=== PATIENT | female | born 1965 | race African-American/Black ===

== ENCOUNTER 2016-08-29 06:33 | Day surgery (SDC) | payer OTHER, BC ==
[~2016-08-29] VITALS: Ht 167.6 cm; Wt 76.2 kg
[~2016-08-29 06:33] MED LIST: ALBU1AER9 INH; ASPI81TA28 PO; ATV/1 PO; BRVIN INH; CALC667C4 PO; CHOL100027 PO; GABA-112 PO; IPRA1AER2 INH; LEVO150T9 PO; MAGNSUS5 PO; ONDA4TAB9 PO; OXGN; OXYC-106 PO; PANT1TAB48 PO; PRMT10 PO; SEVE800T7 PO
[2016-08-29 07:07] VITALS: BP 117/74; PULSE 80; TEMP 36.8; O2SAT 93; Ht 167.6 cm; Wt 76.2 kg
--- NOTE | 2016-08-29 08:03 | Procedure Note ---
Pre-Mod Sedation Assessment General Date of Moderate Sedation: August 29, 2016. Vital Signs: Vital Signs Past 12 Hours Date Time Temp Pulse Resp B/P Pulse Ox O2 Delivery O2 Flow Rate FiO2 08/29/16 07:07 36.8 80 18 117/74 93 Nasal Cannula 3.5 Pre-Sedation Airway Assessment Smoking Status: Current Every Day Smoker Mallampati Classification: Class I ASA Classification: Class II Notes The planned sedation has been discussed with the patient and consent obtained. I have identified the patient, determined the appropriateness of sedation and have assessed the patient immediately prior to the procedure. All medicine(s) and interventions are by my order.
--- NOTE | 2016-08-29 08:03 | History and Physical ---
History & Physical Date of Service August 29, 2016. History & Physical Chief Complaint: Functioning fistula History of Present Illness: The patient is a 46 year old female with long hx of DMII and ESRD, who has a left arm basilic vein fistula. She is now admitted for removal of her permcath. Allergies: No Known Allergies (Verified , 10/31/10) Past Surgical/Medical Hx: Hx Cardiac Surgery: No Hx Abdominal Surgery: Yes ( x2; tubal ligation, lap niranjan, fistula repair, hernia x4) Hx Cancer Surgery: No Hx Thoracic Surgery: No Hx Orthopedic: No Hx Urinary Tract Surgery: No HX Other Surgery: Yes (tonsilectomy) Past Medical History: Anxiety, Depression Family History: Noncontributory Social Hx: Hx Tobacco Use In Past Year?: Yes (1/2 ppd x 10 years) Hx Alcohol Use - Type & Amnt: No Hx Substance Use -Type & Amnt: No Review of Systems: Constitutional: + fatigue (chronic), No chills, No fever Skin: No change in color, No rash Eyes: No visual changes ENMT: No sore throat Respiratory: No cough, No MALLORY, No hemoptysis, No short of breath Cardiovascular: + edema (chronic), No chest pain, No chest tightness, No chest pressure, No palpitations, No syncope, No intermittent claudication Gastrointestinal: + abdominal pain (chronic d/t hernia), No diarrhea, No nausea , No vomiting Musculoskeletal: No joint pain (BL hips chronic) Neurologic: No dizziness, No headache, No numbness, No seizures, No tingling Physical Exam: Constitutional: General Apperance: well-nourished, well-developed, obese Level of Distress: NAD, chronically ill Psychiatric: Mental Status: active & alert Orientation: to time, to place, to person Memory: recent memory normal, remote memory normal Head: normocephalic, atraumatic Eyes: EOM: EOMI ENMT: normal ENT inspection Neck: supple, trachea midline, no masses, FROM Lungs: Respiratory effort: no dyspnea Auscultation: no wheezing, no rales/crackles, no rhonchi, Cardiovascular: Apical Impulse: not displaced Heart Auscultation: RRR, no murmurs, no rubs, no gallops Peripheral Pulses: Pulses: full and equal, in all extremities except if noted Bruits: none appreciated Carotid Pulse: normal on the left, normal on the right Brachial Pulses: normal on the left, normal on the right Radial Pulse: normal on the left, normal on the right Femoral Pulse: normal on the left, normal on the right Posterior Tibialis Pulse: normal on the left, normal on the right Dorsalis Pedis Pulse: normal on the left, normal on the right Abdomen: Bowel Sounds: normal Inspection & Palpation: soft, distended (secondary to body habitus) Musculoskeletal: normal strength (5/5 throughout), normal tone Extremities: Upper Right: no cyanosis, no edema, no varicosities Upper Left: no edema good thrill and bruit Lower Right: no cyanosis, no varicosities, no palpable cord, edema (1+) Lower Left: no cyanosis, no varicosities, no palpable cord, edema (1+) Neurologic: Cranial Nerves: grossly intact Sensation: grossly intact Assessment and Plan: Imp: ESRD, Functioning left basilic vein fistula Plan: Patient is admitted for a removal of her permcath. She understands the risks options and benefits and agrees to the procedure.
[2016-08-29] MEDS ORDERED: STERILE WATER IV SCH (08:15)
[2016-08-29] MEDS ORDERED: SOD CHLOR IV SCH (08:15)
[2016-08-29] MEDS ORDERED: LIDOCAINE HCL 1% 20 ML VIAL ONE (08:59)
[2016-08-29] MEDS ORDERED: MIDAZOLAM HCL 1 MG/ML 2ML VIAL ONE (09:00)
[2016-08-29] MEDS ORDERED: FENTANYL CITRATE INJ 50 MCG/1 ML 2 ML VIAL ONE (09:00)
[2016-08-29] MEDS ORDERED: MIDAZOLAM HCL 1 MG/ML 2ML VIAL IV ONE (09:19)
[2016-08-29] MEDS ORDERED: FENTANYL CITRATE INJ 50 MCG/1 ML 2 ML VIAL IV ONE (09:20)
[2016-08-29] MEDS ORDERED: FLUMAZENIL 0.1 MG/1 ML 10 ML VIAL IV ONE (09:20)
[2016-08-29] MEDS ORDERED: NALOXONE HCL 0.4 MG/1 ML VIAL/CARP ONE (09:20)
[2016-08-29] MEDS ORDERED: LIDOCAINE HCL 1% 20 ML VIAL INFIL ONE (09:23)
--- NOTE | 2016-08-29 09:26 | [facility] Post Operative Brief Note ---
Immediate Operative Summary Operative Date August 29, 2016. Pre-Operative Diagnosis Functioning Fistula Post-Operative Diagnosis Same Procedure(s) Performed Perm Cath Removal Moderate Sedation ([id number]) Surgeon Rojas Surgical First Assistant Surgeon(s) None Estimated Blood Loss 0 Findings catheter and cuff removed Specimens a; Perm Catheter Anesthesia Local with conscious sedaton Complication(s) None Disposition
--- NOTE | 2016-08-29 09:28 | Discharge Instructions ---
Discharge Instructions Date of Service August 29, 2016. Visit Reason for Visit: End Stage Renal Disease, Functioning Fistula Discharge Discharge Diagnosis / Problem: Functioning fistula Discharge Goals Goal(s): Therapeutic intervention Activity Recommendations Activity Limitations: resume your previous activity Shower/Bathe: tomorrow Anesthesia . Post Anesthesia Instructions: If you have had General Anesthesia or IV Sedation: * Do not drive today. * Resume driving when surgeon permits. * Do not make important decisions or sign legal documents today. * Call surgeon for: 1. Temperature elevations greater than 101 degrees F. 2. Uncontrollable pain. 3. Excessive bleeding. 4. Persistent nausea and vomiting. 5. Medication intolerance (nausea, vomiting or rash). * For nausea and vomiting use only clear liquids such as: tea, soda, bouillon until nausea subsides, then gradually increase diet as tolerated. * If you have any concerns or questions, call your surgeon's office. If physician is unavailable and it is an emergency, call 911 or go to the nearest emergency room. . Instructions / Follow-Up Instructions / Follow-Up Call [phone] with any questions or concerns. SPECIAL CARE INSTRUCTIONS: Medications: * Continue to take your medications as directed. If you have been given a prescription for Plavix, please fill it immediately and take as directed. Incision Care: * Your puncture site may have some bruising and minor swelling for about one week. * You will have a small dressing covering your puncture site. You may remove the dressing after 24 hours and shower. You may let the warm soapy water run over it, but be sure to dry the puncture site well and keep it dry. * DO NOT IMMERSE THE INCISION IN A TUB/POOL/etc. UNTIL HEALED. * Puncture sites should be kept covered with a band-aid until it begins to heal. Restrictions: * Depending on whether you leg or arm was punctured to access the arteries, you will be required to lay flat, hold your arm still, or both, for about 4 hours after the procedure to prevent bleeding. * Limit your activity for the first 48 hours. You may walk and go up and down steps. Avoid excessive bending or movement at the puncture site. Possible Complications: * Excessive Swelling - after blood flow is improved you may notice increased swelling in the lower legs. This is a normal response. This usually depends on the amount of blockages in the leg, how long they have been there prior to your procedure and how much blood flow was restored. Elevating your legs will help to improve this. Please notify our office ([phone] ) if the swelling does not go away after lying in bed overnight. * Infection/Drainage/Bleeding - Drainage or bleeding from the puncture site should be minimal. If you have excessive bleeding or drainage, call our office ([phone]) right away. * Pain - You may experience some mild pain or soreness at your puncture site. If your pain does not improve, please contact our office ([phone]). Call your doctor and seek emergent treatment if you develop: * Temperature above 101 degrees * Any fever or chills * Any redness or purulent drainage from the puncture site * Any new dusky/blue colored toes or feet with coolness or sharp or aching pain. SKIN IRRITATION: * You may experience some redness and/or swelling in the area where radiation was administered. If any skin irritation occurs, please contact your family physician. FOLLOW UP VISIT: Keep any scheduled doctor appointments. Diet Recommendations Recommended Home Diet: resume previous diet Procedures Procedures Performed: Perm Cath Removal Moderate Sedation ([id number]) Pending Studies Studies pending at discharge: no Medical Emergencies . Who to Call and When: Medical Emergencies: If at any time you feel your situation is an emergency, please call 911 immediately. . Non-Emergent Contact Non-Emergency issues call your: Surgeon . . "Provider Documentation" section prepared by Keith Xie. .
--- NOTE | 2016-08-29 09:33 | Procedure Note ---
Post-Moderate Sedation Plan General Date of Moderate Sedation August 29, 2016. Vital Signs: Vital Signs Past 12 Hours Date Time Temp Pulse Resp B/P Pulse Ox O2 Delivery O2 Flow Rate FiO2 08/29/16 09:27 86 16 114/73 90 Nasal Cannula 3 08/29/16 07:07 36.8 80 18 117/74 93 Nasal Cannula 3.5 Review - Discharge Plan Post Moderate Sedation Plan: On clinical assessment, the patient appears to have tolerated the conscious sedation without complications. Patient is recovering as anticipated. Patient will continue to be monitored by nursing and may be discharged when conscious sedation discharge criteria are met.
[2016-08-29 09:45] VITALS: BP 101/70; PULSE 87; TEMP 36.5; O2SAT 94
--- NOTE | 2016-08-29 09:53 | DIAGNOSTIC IMAGING REPORT ---
DATE OF PROCEDURE: 08/29/2016 DATE OF PROCEDURE: 08/29/2016. PREOPERATIVE DIAGNOSIS: Functioning fistula. POSTOPERATIVE DIAGNOSIS: Same. PROCEDURE: Removal of left internal jugular vein PermCath, moderate sedation 7 minutes. SURGEON: Dr. Xie. ANESTHETIC: Local with conscious sedation. PROCEDURE INDICATIONS: The patient is a 51-year-old female who has a functioning fistula in need of PermCath removal. She understood the risks, options and benefits and agreed to have this procedure. The patient was taken to the angio suite and placed in supine position. After the left side of the neck was prepped and draped in a sterile manner as well as the catheter and chest wall the local anesthetic was administered. Using sharp dissection, an incision was made around the base of the cuff cutting through the fibrous sheath that was present and skin edges around the outside of the puncture site. Once this was done, the catheter slid out easily. Pressure was applied. Adequate hemostasis was obtained. Sterile dressings were applied to the wound. The patient left the angio suite in good condition and tolerated the procedure well.
[2016-08-29 10:20] VITALS: BP 90/56; PULSE 85; TEMP 36.6; O2SAT 96
== END 2016-08-29 10:45 | disposition home or self-care (01) ==
LOC: C.ACU 06:33
PROVIDERS: ATTEND Surgery Vascular Surgery
DX: N18.6 End stage renal disease (principal); E11.9 Type 2 diabetes mellitus without complications; Z98.51 Tubal ligation status; Z90.49 Acquired absence of other specified parts of digestive tract; Z90.89 Acquired absence of other organs; F41.9 Anxiety disorder, unspecified; F32.9 Major depressive disorder, single episode, unspecified; F17.200 Nicotine dependence, unspecified, uncomplicated

== ENCOUNTER 2018-05-05 15:40 | Inpatient (IN) ==
[~2018-05-05 15:40] MED LIST changes: -ALBU1AER9 INH; -ASPI81TA28 PO; -ATV/1 PO; -BRVIN INH; -CALC667C4 PO; -CHOL100027 PO; -GABA-112 PO; -IPRA1AER2 INH; +KETAMINE HCL INJ 50 MG/ML 10 ML VIAL IV ONE; -LEVO150T9 PO; -MAGNSUS5 PO; -ONDA4TAB9 PO; -OXGN; -OXYC-106 PO; -PANT1TAB48 PO; -PRMT10 PO; +ROCURONIUM BROMIDE 10 MG/ML 5 ML VIAL IV ONE; -SEVE800T7 PO
[2018-05-05] MEDS ORDERED: NALOXONE HCL INJ 1 MG/ML 2ML SYR INTNAS ONE (16:32)
[2018-05-05] MEDS ORDERED: NALOXONE HCL 0.4 MG/1 ML VIAL/CARP ONE (16:37)
[2018-05-05] MEDS ORDERED: NALOXONE HCL 0.4 MG/1 ML VIAL/CARP IV PRN (16:43)
[2018-05-05 17:08] LABS: Basophils # (auto) 0.02 K/uL (0-0.2); Basophils % (auto) 0.3 %; Eosinophils # (auto) 0.01 K/uL (0-0.5); Eosinophils % (auto) 0.1 %; Hematocrit (blood only) 41.6 % (37-47); Hemoglobin 12.8 g/dL (12.0-16.0); Immature Granulocytes # (auto) 0.02 K/uL (0.00-0.02); Immature Granulocytes % (auto) 0.3 %; Lymphocytes # (auto) 0.42 K/uL (1.2-3.4); Lymphocytes % (auto) 5.9 %; Mean Corpuscular Hgb Conc 30.8 g/dL (32-36); Mean Platelet Volume 10.9 fL (7.4-10.4); Monocytes # (auto) 0.33 K/uL (0.11-0.59); Monocytes % (auto) 4.7 %; Neutrophils # (auto) 6.29 K/uL (1.4-6.5); Neutrophils % (auto) 88.7 %; Platelet Count 117 K/uL (130-400); RDW Coefficient of Variation 14.9 % (11.5-14.5); RDW Standard Deviation 57.3 fL (36.4-46.3); White Blood Count 7.09 K/uL (4.8-10.8)
[2018-05-05 17:21] LABS: HCO3 ABG 28 mmol/L (19-24); Oxygen Saturation ABG 88.6 % (90-95); PCO2 ABG 76 mmHg (35-46); PO2 ABG 64 mm/Hg (80-95)
[2018-05-05 17:22] LABS: pH ABG 7.18 (7.35-7.45)
--- NOTE | 2018-05-05 17:36 | XRay Report ---
XR chest 1V portable CLINICAL HISTORY: 52 years-old Female presenting with weakness. TECHNIQUE: Portable semiupright AP view of the chest was obtained. COMPARISON: 09/21/2017. FINDINGS: Right subclavian pacer with leads to the right atrium and right ventricular apex. Prosthetic mitral v alve. Median sternotomy wires and mediastinal surgical clips. Cardiac silhouette moderately enlarged. Significant enlargement of the main pulmonary artery. Pulmonary vascular prominence. Mildly low lung volumes with elevation of the right hemidiaphragm. Patchy groundglass opacity and/or added density o f the mid lungs and left upper lung. No large effusion or pneumothorax. IMPRESSION: 1. Cardiomegaly with volume overload/congestive change and suspected moderate pulmonary edema. Under lying infection is difficult to exclude. 2. Evidence of main pulmonary artery enlargement consistent with pulmonary hypertension. Electronically signed by: Bebo Mcmanus M.D. 05/05/2018 5:34 PM
[2018-05-05 17:38] LABS: Acetaminophen < 2 ug/ml (10-30); Alanine Aminotransferase 18 U/L (12-78); Albumin Globulin Ratio 0.7 (0.9-2); Albumin Level 3.6 gm/dl (3.4-5.0); Alkaline Phosphatase 273 U/L (45-117); Aspartate Aminotransferase 29 U/L (15-37); BUN Creatinine Ratio 4.7 (10-20); Bilirubin,Total 0.3 mg/dl (0.2-1); Blood Urea Nitrogen 38 mg/dl (7-18); Calcium 8.1 mg/dl (8.5-10.1); Carbon Dioxide 30 mmol/L (21-32); Chloride 90 mmol/L (98-107); Est GFR (African American) 5.9; Est GFR (Non-African American) 5.1; Globulin 5.1 gm/dl (2.5-4.0); Glucose 104 mg/dl (70-99); Potassium 4.8 mmol/L (3.5-5.1); Sodium 131 mmol/L (136-145); Total Protein 8.7 gm/dl (6.4-8.2); Troponin I < 0.015 ng/ml (0-0.045)
[2018-05-05] MEDS ORDERED: RAPID SEQUENCE INDUCTION BAG ONE (18:45)
[2018-05-05 19:50] LABS: iSTAT Arterial Blood Gas HCO3 29 meg/L (19-24); iSTAT Carbon Dioxide 32 mEq/l (24-31)
[2018-05-05] MEDS ORDERED: MIDAZOLAM HCL 125 MG/250 ML BAG IV STA ×2 (19:58→22:31)
--- NOTE | 2018-05-05 20:20 | XRay Report ---
XR chest 1V portable CLINICAL HISTORY: 52 years-old Female presenting with post intubation. TECHNIQUE: Portable upright AP view of the chest was obtained. COMPARISON: 05/05/2018 at 5:06 PM. FINDINGS: Endotracheal tube terminates in the lower thoracic trachea proximally 1.5 cm from the rigoberto. Right s ubclavian pacer with leads to the right atrium and right ventricular apex. Prosthetic mitral valve. P rosthetic tricuspid valve also suggested. Median sternotomy wires and mediastinal surgical clips. Cardiac silhouette mildly enlarged. Prominence of the main pulmonary artery. Postsurgical changes the right hemithorax suspected with persistent elevation of the right hemidiaphragm. Low lung volumes si milar to prior. Significant interval worsening of perihilar and central predominant hazy opacities, w hich have become more dense significantly on the left. Small right pleural effusion new from prior. N o pneumothorax. Calcification projecting over the proximal left humerus may be vascular in etiology. Cholecystectomy clips noted. IMPRESSION: 1. Appropriately positioned endotracheal tube. 2. Significant interval worsening in central predominant infiltrates most concerning for moderate to severe pulmonary edema. 3. New right pleural effusion. Electronically signed by: Bebo Mcmanus M.D. 05/05/2018 8:18 PM
--- NOTE | 2018-05-05 21:01 | Critical Care Consultation ---
Date of Consultation May 05, 2018 Assessment & Plan (1) Admitted to intensive care unit: Reason Critically Ill: 52-year-old female with multiple comorbidities presenting with acute on chronic hypoxic respiratory failure with hypercapnia found to have aspiration pneumonia. Patient presenting with altered mental status requiring endotracheal intubation for all the above. NEURO - * CAM ICU: POSITIVE * SEDATION: Initially started on Versed gtt in ED. * Patient appears sensitive to versed in regards to blood pressures. Will make Versed PRN. * Will add Fentanyl PRN. * Altered Mental Status: * Multifactorial in the setting of respiratory failure w/ hypercapnia, narcotic use, aspiration pneumonia. * CT Head unremarkable. * Will see how patient improves with correction of hypercapnia. CARDIAC/VASCULAR - * Hypotension: * Appears to be relatively hypotensive at baseline. * Previously on Midodrine 3 times daily. Unable to find records and not currently on EMR. * Will add pressors if needed - will titrate to patient responsiveness as organ perfusion will be hard to evaluate otherwise 2/2 CKD, Liver Dz. * Vavular heart disease s/p Mitral/Tricuspid repair. * Echo on 09/20/2017 shows EF of 50-55%, Grade II diastolic failure. * EKG: Paced 97bpm. unable to appreciate ST/T-wave changes. QTc 556 ms. * Monitor on telemetry. RESPIRATORY - * Acute on chronic hypoxic respiratory failure with hypercapnia in the setting of aspiration pneumonia: * Currently intubated and sedated. * Will check serial ABGs. * Will add CT Chest w/o. * Zosyn/Vanc. * Pulmonary Edema noted on CXR/CT Chest. Seen previously. Likely 2/2 volume overload in the setting of CKD. * Will add Nebs. * Will add steroids. GI/NUTRITION - * Chronic ventral hernia. * In the setting of altered mental status and unknown underlying other pathologies, will add CT for evaluation of possible mesenteric catastrophe. * Will check lactate for possible ischemia. * Prophylaxis: Protonix. RENAL/LYTES - * End-stage renal disease on HD M/W/F: * Will consult Nephro for HD management. * Remarkably, lytes remain well balanced. - * Patient anuric. ENDO - * No h/o DM. * BSGs per unit protocol. ISS --> gtt per unit policy. * Hypothyroidism w/ Significant TSH elevation: * In the setting of AMS, consider myxedema. * Will add Free T3/T4 and cortisol studies. * Will treat w/ Levothyroxine and Solu-cortef. HEME - * Stable H&H ID - * Aspiration Pneumoinia: * Will treat w/ Vanc/Zosyn pending nasal MRSA cultures. * BAL if bronched. * Check Lactate. * Add ProCal. * Blood Cultures pending. LINES/IV ACCESS - * PIVs x3 * RIGHT Radial Arterial Line DVT PROPHYLAXIS - * Heparin * SCDs I have personally spent 80 minutes of critical care time in the direct management of this patient. This is a life/limb threatening event. This includes time spent evaluating patient, direct bedside care, chart review, placing orders, interpretation of diagnostic studies, discussion with consultants, patient, and family members, as well as other required patient management activities. This time is exclusive of all separately billable procedures, and teaching time and separate from and in addition to any other critical care service time. Thank you for allowing us to participate in the care of this patient. Please refer to my attending physician's documentation for any further recommendations. (2) Acute respiratory failure with hypoxia and hypercarbia: (3) Altered mental status: (4) End-stage renal disease (ESRD): (5) Respiratory failure: (6) Hypothyroidism: (7) Polycystic kidney disease, adult type: Supervising Physician Co-Signing Physician Notes I have personally evaluated and examined this patient. I agree with assessment and plan of Elvie Santiago PA-C. Please refer to today's documentation from Dr. Gonzalez regarding my updates or additions History of Present Illness History of Present Illness Patient is an unfortunate 52-year-old female with a significant past medical history of end-stage renal disease on hemodialysis Mondays/Wednesdays/Fridays, COPD, RITU, significant history of valvular heart disease, CHF, history of endocarditis, and history of substance abuse. Patient presented to the emergency department with apparent increasing altered mental status. She presented via EMS. On arrival, the patient was felt to be obtunded. She was placed on BiPAP as her initial blood gas showed a respiratory acidosis. She was also provided naloxone with minimal relief of symptoms. On reassessment after initiation of BiPAP, the patient had worsening ABG prompting endotracheal intubation. Chest x-ray demonstrated pulmonary vascular congestion without overt infiltrative change. No significant electrolyte abnormalities appreciated. She was found to have a creatinine of 8.13. On assessment, she typically runs with a creatinine of approximately 5. Her last hemodialysis treatment was on Sunday. Of note, the patient's TSH was found to be 155. She typically does run with a higher TSH, however this is higher than most recent admission. On my assessment in the ER, the patient is sedated and unresponsive. No family is present at bedside. History of present illness is limited secondary to patient's current status. Allergies Allergy/AdvReac Type Severity Reaction Status Date / Time No Known Allergies Allergy Verified 02/06/17 12:26 Home Medications Home Medications Medication Instructions Recorded Confirmed Type albuterol sulfate [Ventolin HFA] 1 puff INHALATION UD PRN 05/05/18 05/05/18 History aspirin [Aspir-81] 81 mg PO DAILY 05/05/18 05/05/18 History calcium acetate 1,334 mg PO TID 05/05/18 05/05/18 History cholecalciferol (vitamin D3) 1,000 unit PO DAILY 05/05/18 05/05/18 History [Vitamin D3] gabapentin 300 mg PO HS 05/05/18 05/05/18 History levothyroxine 175 mcg PO DAILY 05/05/18 05/05/18 History lorazepam 1 mg PO Q12 PRN 05/05/18 05/05/18 History oxycodone-acetaminophen 1 tab PO Q12 PRN 05/05/18 05/05/18 History Patient History Medical History History of valvular heart disease (Chronic) "s/p mitral and tricuspid valve repair 12/2012" Chronic systolic heart failure (Chronic) H/O echocardiogram (Chronic) "11/2013: Moderate systolic dysfunction with 40% ejection fraction, status post mitral and tricuspid repair, mild tricuspid regurgitation." Chronic kidney disease stage 5 (Chronic Unknown) "hemodialysis under direction of Dr. Hugo " On 10/31/11 15:52 Rasta Boyer wrote "hemodialysis under direction of Dr. Hugo " On 10/31/11 15:52 Rasta Boyer wrote "hemodialysis under direction of Dr. Hugo " On 10/31/11 15:52 Rasta Boyer wrote "hemodialysis under direction of Dr. Hugo " On 10/31/11 15:52 Rasta Boyer wrote "hemodialysis under direction of Dr. Hugo " On 10/31/11 15:52 Rasat Boyer wrote "hemodialysis under direction of Dr. Hugo " On 10/31/11 15:52 Rasta Boyer wrote "hemodialysis under direction of Dr. Hugo " On 10/31/11 15:52 Rasta Boyer wrote "hemodialysis under direction of Dr. Hugo " Polycystic kidney disease, adult type (Chronic Unknown) Dyslipidemia (Chronic) Sleep apnea (Chronic Unknown) COPD (chronic obstructive pulmonary disease) (Chronic) History of drug abuse (Chronic) Depression (Chronic) History of endocarditis (Chronic) Chronic anxiety (Chronic Unknown) Anemia (Chronic) Neuropathy (Chronic) Surgical History S/P mitral valve repair (Chronic) "12/2012" S/P tricuspid valve repair (Chronic) "12/2012" S/P placement of cardiac pacemaker (Chronic) "12/2012" S/P right and left heart catheterization (Chronic) "2012- minor luminal regularities of the coronary arteries, severe pulmonary hypertension, with markedly elevated pulmonary capillary wedge pressure" S/P hernia repair (Chronic) S/P tonsillectomy (Chronic) Social History Smoking Status: Unknown if ever smoked Beliefs That Will Affect Care: None Communication Ability: Impaired Review of Systems Review of systems limited secondary to patient's current state of intubation with sedation. Physical Exam 2 Vital Signs (Past 24 Hours): Last Vital Signs Temp 36.9 C 05/05/18 20:28 Pulse 90 05/05/18 20:28 Resp 26 H 05/05/18 20:28 BP 79/52 L 05/05/18 20:28 Pulse Ox 97 05/05/18 20:28 Physical Exam: VITAL SIGNS - Vital signs and nursing notes were reviewed. GENERAL - 52-year-old female appearing older than her stated age who is in no acute distress. Intubated and sedated. SKIN - Dry skin throughout. HEAD - NC/AT. EYES - PERRL with EOMI bilaterally. Sclera anicteric. Palpebral conjunctiva pink and moist with no injection noted. EARS - No deformities of external structures noted on gross examination bilaterally. NOSE - Midline and without cyanosis. No epistaxis or purulent drainage noted. MOUTH/OROPHARYNX - ET Tube in place. Without perioral cyanosis. NECK - Neck with FROM. Supple to palpation. LUNGS - Chest wall symmetric without accessory muscle use, intercostals retractions, or central cyanosis. Normal vesicular breath sounds CTA B/L. Diffuse inspiratory wheezes appreciated throughout. No rales or rhonchi appreciated. CARDIAC - RRR with S1/S2. No murmur, rubs, or gallops appreciated. ABDOMEN - Abdominal contour obese with large non-reducible ventral hernia appreciated. BS normoactive all four quadrants. No tenderness or ascites noted. EXTREMITIES - No clubbing or peripheral cyanosis. No pretibial edema present. +2 /5 radial and dorsalis pedis pulses palpated throughout. NEUROLOGIC - Unable to assess secondary to current state of sedation. No focal neurological deficits appreciated however. Results & Data Diagnostic Findings Radiology imaging and reports were reviewed by myself. Radiologist's interpretations are as follows: CT head/brain wo con CLINICAL HISTORY: 52 years-old Female presenting with ams. TECHNIQUE: Multidetector CT imaging of the head was performed without the use of intravenous contrast. IV contrast: None. A dose lowering technique was used consistent with the principles of ALARA (as low as reasonably achievable). COMPARISON: None. CT DOSE (mGy.cm): The estimated cumulative dose is 2475.26. FINDINGS: [employer] Representative topogram: Endotracheal tube terminates in the lower thoracic trachea. Prosthetic mitral and tricuspid valves with median sternotomy wires. Right subclavian pacer with leads to the right atrium and right ventricular apex. Cholecystectomy clips. Coil carson in the midabdomen indicated of prior ventral hernia repair. Surgical clips project over the left common femoral region. Calcification projects over the left upper arm. Ventricles and sulci normal in size. No hemorrhage. Brain parenchyma normal in appearance with preserved barfield-white differentiation. No acute territorial infarct. No mass effect or midline shift. No extra-axial fluid collection. Extensive fluid in the nasopharynx as a result of the endotracheal tube. Calvarium intact. IMPRESSION: 1. No acute intracranial abnormality. CT chest wo con CLINICAL HISTORY: 52 years-old Female presenting with resp failure. TECHNIQUE: Multidetector CT imaging of the chest was performed without the use of intravenous contrast. IV contrast: None. A dose lowering technique was used consistent with the principles of ALARA (as low as reasonably achievable). COMPARISON: Chest x-ray performed earlier today and chest CT from 04/01/2013. CT DOSE (mGy.cm): The estimated cumulative dose is 2475.26. FINDINGS: [employer] Representative topogram: Endotracheal tube terminates in the lower thoracic trachea. Prosthetic mitral and tricuspid valves with median sternotomy wires. Right subclavian pacer with leads to the right atrium and right ventricular apex. Cholecystectomy clips. Coil carson in the midabdomen indicated of prior ventral hernia repair. Surgical clips project over the left common femoral region. Calcification projects over the left upper arm. On soft tissue windows, normal thyroid and thoracic inlet. No axillary, supraclavicular, or mediastinal lymphadenopathy. Evaluation of the [place] limited without intravenous contrast. Atherosclerosis of the aorta. Main pulmonary artery enlarged measuring 2.6 cm in diameter. Prosthetic tricuspid and mitral valves. Coronary artery calcification. Pacer leads to the right atrial appendage and right ventricular apex. Additional epicardial lead noted. Median sternotomy wires. Mild multichamber enlargement of the heart. Trace pleural fluid may be present if any. No pericardial effusion. Numerous well-defined low- density hepatic lesions again evident though several lesions are now accompanied by mural calcification. Nodular contour of the liver suggests cirrhosis. Biliary ductal dilatation may indicate a reservoir effect in the post cholecystectomy state. Splenomegaly. Nasogastric tube extends at least to the gastric lumen. On lung windows, no pneumothorax. Mild centrilobular emphysema. Extensive groundglass opacity with an upper lobe predominance. Mosaic attenuation in the right middle lobe. Extensive dependent consolidation in the bilateral lower lobes with more patchy dependent consolidation in the upper lobes. The endotracheal tube terminates in the lower thoracic trachea. Airways are diffusely narrowed including the right and left mainstem bronchi. Layering debris is suggested in the mainstem bronchi. On bone windows, peripherally calcified arteriovenous fistula in the left upper arm noted. Sclerosis of the vertebral bodies suggestive of renal osteodystrophy. IMPRESSION: 1. Extensive pulmonary infiltrates with a dependent distribution lobes highly concerning for extensive aspiration. Lower lobe consolidation is likely enlarged part extensive atelectasis. 2. Diffuse groundglass opacity in the upper lobes may represent cardiogenic or noncardiogenic pulmonary edema or pulmonary hemorrhage. 3. Extensive debris in the mainstem bronchi with overall narrowed airways. Endotracheal tube in the lower trachea. 4. Interval evolution of polycystic liver disease with development of peripheral calcification of numerous cysts. This is of uncertain significance. Correlate with the patient's history. The liver morphology now suggest cirrhosis. 5. Splenomegaly in the setting of the liver suggests portal hypertension. 6. Additional findings as above. CT abd pelvis wo con CLINICAL HISTORY: 52 years-old Female presenting with ams - abd hernia. TECHNIQUE: Multidetector CT of the abdomen and pelvis was performed without the use of intravenous contrast. IV contrast: None. A dose lowering technique was used consistent with the principles of ALARA (as low as reasonably achievable). COMPARISON: 11/17/2015. CT DOSE (mGy.cm): The estimated cumulative dose is 2475.26 mGy.cm. FINDINGS: [employer] Representative topogram: Endotracheal tube terminates in the lower thoracic trachea. Prosthetic mitral and tricuspid valves with median sternotomy wires. Right subclavian pacer with leads to the right atrium and right ventricular apex. Cholecystectomy clips. Coil carson in the midabdomen indicated of prior ventral hernia repair. Surgical clips project over the left common femoral region. Calcification projects over the left upper arm. Lung bases: Extensive dependent consolidation with diffuse groundglass and patchy upper lobe dependent infiltrates. Postsurgical changes of tricuspid and mitral valve replacements. Pacer leads to the right atrium and right ventricular apex. Multichamber enlargement of the heart. No pericardial or pleural effusion. Liver: Nodular morphology. Innumerable cysts, which also demonstrate peripheral calcification in many lesions. Biliary: Mild biliary ductal prominence likely a reservoir effect in the post cholecystectomy state. Gallbladder surgically absent. Pancreas: Normal noncontrast appearance. Pancreatic ductal dilatation grossly unchanged. Spleen: Enlarged, measuring 13.5 cm in maximal sagittal dimension. Adrenal glands: Normal noncontrast appearance. Kidneys and ureters: Enlarged polycystic kidneys with extensive calcification. Several cysts may demonstrate internal proteinaceous or hemorrhagic material given the slightly higher density. Limited evaluation without intravenous contrast of these lesions. No hydronephrosis. Ureters nondistended. Bladder: Incompletely evaluated secondary to underdistention. Pelvic organs: Normal noncontrast appearance. Bowel: Few diverticula in the proximal sigmoid colon. The mid transverse colon is contained within the ventral hernia in the epigastrium as on prior exam. No evidence of obstruction as a result. The appendix is normal. Medialization of the cecum. No bowel obstruction. Nasogastric tube terminates in the gastric antrum. Mild wall thickening of the duodenal bulb and descending duodenum suggested. Peritoneal cavity: Trace fluid in the abdomen. No free intraperitoneal gas. Lymph nodes: No gross lymphadenopathy allowing for noncontrast technique. Postsurgical changes in the left inguinal region. Vasculature: Atherosclerosis of the normal caliber abdominal aorta. Abdominal wall: Prosthetic mesh from prior ventral hernia repair evident in the periumbilical region. The epigastric ventral hernia sac containing transverse colon and fluid is immediately superior to this. Musculoskeletal: Sclerosis suggests renal osteodystrophy. Calcification in the sacroiliac joints with widened sacral iliac joints suggests amyloid-related arthropathy. Multiple old rib fractures evident. IMPRESSION: 1. Extensive dependent consolidation likely aspiration and atelectasis. Please see separately dictated CT chest. 2. Polycystic kidney and polycystic liver disease. 3. Nodular morphology of the liver with mild splenomegaly raises concern for cirrhosis/fibrosis and portal hypertension. 4. Epigastric hernia containing transverse colon. No bowel obstruction or evidence of strangulation. Appearance unchanged from prior. 5. Duodenal bulb and descending duodenal wall thickening suggested. This may relate to possible portal hypertension (portal enteropathy) versus duodenitis/ enteritis. 6. Renal osteodystrophy.
--- NOTE | 2018-05-05 21:09 | History & Physical Report ---
Date of Service May 05, 2018 Assessment & Plan (1) Admitted to intensive care unit: Admitted to ICU with acute respiratory failure with hypoxia and hypercapnea, secondary to acute on chronic systolic heart failure. Question contribution of thyroid myxedema. Continue current ventilator settings. Repeat ABG in 30 minutes and adjust vent accordingly. Patient does not produce urine, so therefore will not be given diuretics, but does not appear to acutely need dialysis at this time. Remainder of orders per ICU team, under the direction of Dr. Chavez. Present on Admission?: Yes (2) Acute respiratory failure with hypoxia and hypercarbia: See above Present on Admission?: Yes (3) Acute on chronic systolic heart failure: See above Present on Admission?: Yes (4) Hypothyroidism: TSH upon admission is 155.0, likely indicating patient is not taking her thyroid medication as directed. Question a complement of thyroid myxedema. We will convert her oral levothyroxine to IV levothyroxine. Present on Admission?: Yes (5) End-stage renal disease (ESRD): Consult her radiology receptionist Dr. Hugo Present on Admission?: Yes (6) Altered mental status: Upon arrival patient had a severe respiratory acidosis, with pH initially 7.18, that worsened to 7.06 prior to intubation. Likely etiology is acute on chronic systolic heart failure. However, patient has been cultured and results will be followed. Present on Admission?: Yes (7) Chronic kidney disease stage 5: As noted, hemodialysis patient. Present on Admission?: Yes History of Present Illness Chief Complaint: HPI significantly limited at the time of my assessment as the patient is intubated. Record review shows that the patient initially presented due to worsening weakness and confusion. Primary Care Provider: Blayne Hugo MD The patient is a 52-year-old female with a past medical history including valvular heart disease, systolic heart failure, COPD, drug abuse, endocarditis, bacteremia, hypertension, hyperlipidemia, ESRD on dialysis, neuropathy, tricuspid valve repair, mitral valve repair, all complicated by medical noncompliance. She arrived to the emergency department via ALS from home, where she is usually on 3.5 L of oxygen via nasal cannula. Allergies Allergy/AdvReac Type Severity Reaction Status Date / Time No Known Allergies Allergy Verified 02/06/17 12:26 Home Medications Home Medications Medication Instructions Recorded Confirmed Type albuterol sulfate [Ventolin HFA] 1 puff INHALATION UD PRN 05/05/18 05/05/18 History aspirin [Aspir-81] 81 mg PO DAILY 05/05/18 05/05/18 History calcium acetate 1,334 mg PO TID 05/05/18 05/05/18 History cholecalciferol (vitamin D3) 1,000 unit PO DAILY 05/05/18 05/05/18 History [Vitamin D3] gabapentin 300 mg PO HS 05/05/18 05/05/18 History levothyroxine 175 mcg PO DAILY 05/05/18 05/05/18 History lorazepam 1 mg PO Q12 PRN 05/05/18 05/05/18 History oxycodone-acetaminophen 1 tab PO Q12 PRN 05/05/18 05/05/18 History Past Med/Surg History Medical History History of valvular heart disease (Chronic) "s/p mitral and tricuspid valve repair 12/2012" Chronic systolic heart failure (Chronic) H/O echocardiogram (Chronic) "11/2013: Moderate systolic dysfunction with 40% ejection fraction, status post mitral and tricuspid repair, mild tricuspid regurgitation." Chronic kidney disease stage 5 (Chronic Unknown) "hemodialysis under direction of Dr. Hugo " On 10/31/11 15:52 aRsta Boyer wrote "hemodialysis under direction of Dr. Hugo " On 10/31/11 15:52 Rasta Boyer wrote "hemodialysis under direction of Dr. Hugo " On 10/31/11 15:52 Rasta Boyer wrote "hemodialysis under direction of Dr. Hugo " On 10/31/11 15:52 Rasta Boyer wrote "hemodialysis under direction of Dr. Hugo " On 10/31/11 15:52 Rasta Boyer wrote "hemodialysis under direction of Dr. Hugo " On 10/31/11 15:52 Rasta Boyer wrote "hemodialysis under direction of Dr. Hugo " On 10/31/11 15:52 Rasta Boyer wrote "hemodialysis under direction of Dr. Hugo " Polycystic kidney disease, adult type (Chronic Unknown) Dyslipidemia (Chronic) Sleep apnea (Chronic Unknown) COPD (chronic obstructive pulmonary disease) (Chronic) History of drug abuse (Chronic) Depression (Chronic) History of endocarditis (Chronic) Chronic anxiety (Chronic Unknown) Anemia (Chronic) Neuropathy (Chronic) Surgical History S/P mitral valve repair (Chronic) "12/2012" S/P tricuspid valve repair (Chronic) "12/2012" S/P placement of cardiac pacemaker (Chronic) "12/2012" S/P right and left heart catheterization (Chronic) "2012- minor luminal regularities of the coronary arteries, severe pulmonary hypertension, with markedly elevated pulmonary capillary wedge pressure" S/P hernia repair (Chronic) S/P tonsillectomy (Chronic) Social History Smoking Status: Unknown if ever smoked Beliefs That Will Affect Care: None Preferred Language: Yakut Communication Ability: Impaired Communication Ability Comment: Intubated and sedated Steel Erector Required: No Review of Systems Limited due to patient's intubation status, and is as recorded in the ED notes Physical Exam 2 Vital Signs (Past 24 Hours): Last Vital Signs Temp 36.9 C 05/05/18 20:28 Pulse 90 05/05/18 20:28 Resp 26 H 05/05/18 20:28 BP 79/52 L 05/05/18 20:28 Pulse Ox 97 05/05/18 20:28 Physical Exam: The patient is sedated and intubated. Exam limited due to intubation status. HEENT--pupils pinpoint but reactive. Mucous membranes and oropharynx dry. Neck--No JVD. No bruits. Thyroid normal, trachea midline, no adenopathy. Heart--normal S1 and S2. No murmurs, rubs or gallops. Lungs--coarse breath sounds with wheezes bilaterally. Abdomen--normal bowel sounds and soft. Nondistended. Obese Extremities--no cyanosis or clubbing. Bilateral pretibial 1-2+ pitting edema. There are good distal pulses b/l. Dermatologic--normal skin turgor, normal color, no abnormal lymph nodes, no rash. Neurologic--limited exam Rheumatologic--limited exam Psychiatric--sedated Results & Data Laboratory Results Laboratory Results WBC 7.09 K/uL (4.8-10.8) 05/05/18 16:40 RBC 4.00 M/uL (4.2-5.4) L 05/05/18 16:40 Hgb 12.8 g/dL (12.0-16.0) 05/05/18 16:40 POC Hgb 12.2 g/dl (12.0-16.0) 05/05/18 21:37 Hct 41.6 % (37-47) 05/05/18 16:40 POC Hct 36 % (37-47) L 05/05/18 21:37 MCV 104.0 fL (80-100) H 05/05/18 16:40 MCH 32.0 pg (25-34) 05/05/18 16:40 MCHC 30.8 g/dL (32-36) L 05/05/18 16:40 RDW Std Deviation 57.3 fL (36.4-46.3) H 05/05/18 16:40 RDW Coeff of Ya 14.9 % (11.5-14.5) H 05/05/18 16:40 Plt Count 117 K/uL (130-400) L 05/05/18 16:40 MPV 10.9 fL (7.4-10.4) H 05/05/18 16:40 Immature Gran % (Auto) 0.3 % 05/05/18 16:40 Neut % (Auto) 88.7 % 05/05/18 16:40 Lymph % (Auto) 5.9 % 05/05/18 16:40 [place] % (Auto) 4.7 % 05/05/18 16:40 Eos % (Auto) 0.1 % 05/05/18 16:40 Baso % (Auto) 0.3 % 05/05/18 16:40 Immature Gran # (Auto) 0.02 K/uL (0.00-0.02) 05/05/18 16:40 Neut # (Auto) 6.29 K/uL (1.4-6.5) 05/05/18 16:40 Lymph # (Auto) 0.42 K/uL (1.2-3.4) L 05/05/18 16:40 [place] # (Auto) 0.33 K/uL (0.11-0.59) 05/05/18 16:40 Eos # (Auto) 0.01 K/uL (0-0.5) 05/05/18 16:40 Baso # (Auto) 0.02 K/uL (0-0.2) 05/05/18 16:40 Sample Site Art Line 05/06/18 00:37 POC pH 7.24 (7.35-7.45) L 05/06/18 00:37 POC pCO2 57 mmHg (35-46) H 05/06/18 00:37 POC pO2 60 mmHg (80-95) L 05/06/18 00:37 POC HCO3 24 tonio/L (19-24) 05/06/18 00:37 POC Total CO2 26 mEq/l (24-31) 05/06/18 00:37 POC Base Excess -3.0 tonio/L (-9-1.8) 05/06/18 00:37 ABG pH 7.18 (7.35-7.45) L* 05/05/18 17:06 ABG pCO2 76 mmHg (35-46) H 05/05/18 17:06 ABG pO2 64 mm/Hg (80-95) L 05/05/18 17:06 ABG HCO3 28 mmol/L (19-24) H 05/05/18 17:06 POC ABG O2 Sat 84.0 % (90-95) L 05/06/18 00:37 ABG O2 Saturation 88.6 % (90-95) L 05/05/18 17:06 ABG Base Excess -2.2 mEq/L (-9-1.8) 05/05/18 17:06 Jeb Test NA 05/06/18 00:37 Barometric Pressure 730.1 mm/Hg 05/05/18 17:06 Oxygen Given 7L 05/05/18 17:06 O2 Delivery Device Ventilator 05/06/18 00:37 POC O2 Rate 26 05/06/18 00:37 Minute Ventilation 10.2 05/06/18 00:37 POC FiO2 40 % 05/06/18 00:37 Tidal Volume 450 05/06/18 00:37 PEEP 5 05/06/18 00:37 POC Sodium 134 mEq/L (135-144) L 05/05/18 21:37 Sodium 131 mmol/L (136-145) L 05/05/18 16:40 POC Potassium 4.6 mEq/L (3.3-5.0) 05/05/18 21:37 Potassium 4.8 mmol/L (3.5-5.1) 05/05/18 16:40 POC Chloride 94 mEq/L (101-112) L 05/05/18 16:43 Chloride 90 mmol/L (98-107) L 05/05/18 16:40 Carbon Dioxide 30 mmol/L (21-32) 05/05/18 16:40 POC Total CO2 33 mEq/l (24-31) H 05/05/18 16:43 Anion Gap 10.0 (3-11) 05/05/18 16:40 POC Anion Gap 13.0 mmol/L (16-25) L 05/05/18 16:43 POC BUN 43 mg/dl (7-18) H 05/05/18 16:43 BUN 38 mg/dl (7-18) H 05/05/18 16:40 Creatinine 8.13 mg/dl (0.6-1.2) H* 05/05/18 16:40 POC Creatinine 6.9 mg/dl (0.6-1.3) H* 05/05/18 16:43 Est Cr Clr Drug Dosing Not Reportable 05/05/18 16:40 Est GFR ( Amer) 5.9 05/05/18 16:40 Est GFR (Non-Af Amer) 5.1 05/05/18 16:40 BUN/Creatinine Ratio 4.7 (10-20) L 05/05/18 16:40 Glucose 104 mg/dl (70-99) H 05/05/18 16:40 POC Glucose 109 (70-99) H 05/05/18 16:46 POC Glucose (other) 102 mg/dl (70-99) H 05/05/18 16:43 Lactate 0.6 mmol/L (0.4-2.0) 05/05/18 23:09 Calcium 8.1 mg/dl (8.5-10.1) L 05/05/18 16:40 POC Ioniz Calcium Chivo 1.00 mmol/l (1.12-1.32) L 05/05/18 16:43 Total Bilirubin 0.3 mg/dl (0.2-1) 05/05/18 16:40 AST 29 U/L (15-37) 05/05/18 16:40 ALT 18 U/L (12-78) 05/05/18 16:40 Alkaline Phosphatase 273 U/L (45-117) H 05/05/18 16:40 Troponin I < 0.015 ng/ml (0-0.045) 05/05/18 16:40 Total Protein 8.7 gm/dl (6.4-8.2) H 05/05/18 16:40 Albumin 3.6 gm/dl (3.4-5.0) 05/05/18 16:40 Globulin 5.1 gm/dl (2.5-4.0) H 05/05/18 16:40 Albumin/Globulin Ratio 0.7 (0.9-2) L 05/05/18 16:40 TSH 155.000 uIu/ml (0.300-4.500) H 05/05/18 16:40 Free T4 0.53 ng/dl (0.8-1.6) L 05/05/18 16:40 Free T3 1.03 pg/ml (2.3-4.2) L 05/05/18 17:27 Random Cortisol 29.45 mcg/dl 05/05/18 17:27 Nasal Screen MRSA (PCR) Negative (Negative) 05/05/18 22:14 Salicylates 2.0 mg/dl (2.8-20) L 05/05/18 16:40 Acetaminophen < 2 ug/ml (10-30) L 05/05/18 16:40 Ethyl Alcohol mg/dL < 3.0 mg/dl (0-3) 05/05/18 17:06 Diagnostic Findings [facility], [place] [phone] XRay Report Patient: GALO BIANCHIdmsara Date: 05/05/18 MR#: [id number]: [address] [employer] Acct ID:[id number]: Date: 1965[facility] Zip: [place] [address] Age: 52Location: ED Sex: F Room/Bed: Att Phy: Diagnosis: SYNCOPE Geetha Phy: Bunny Hugo MDService Date: 05/05/18 Fam Phy: Interpreting Phy: Bebo Mcmanus MD Admit Phy: Ordering Phy: Dev Mckeon M.D. cc: ~ XR chest 1V portable CLINICAL HISTORY: 52 years-old Female presenting with weakness. TECHNIQUE: Portable semiupright AP view of the chest was obtained. COMPARISON: 09/21/2017. FINDINGS: Right subclavian pacer with leads to the right atrium and right ventricular apex. Prosthetic mitral valve. Median sternotomy wires and mediastinal surgical clips. Cardiac silhouette moderately enlarged. Significant enlargement of the main pulmonary artery. Pulmonary vascular prominence. Mildly low lung volumes with elevation of the right hemidiaphragm. Patchy groundglass opacity and/or added density of the mid lungs and left upper lung. No large effusion or pneumothorax. IMPRESSION: 1. Cardiomegaly with volume overload/congestive change and suspected moderate pulmonary edema. Underlying infection is difficult to exclude. 2. Evidence of main pulmonary artery enlargement consistent with pulmonary hypertension. Electronically signed by: Bebo Mcmanus M.D. 05/05/2018 5:34 PM Dictated: 05/05/18 1733 Transcribed: 05/05/18 1733 [place], [place] [phone] XRay Report Patient: Bobby BIANCHI Date: 05/05/18 MR#: [id number]: [address] [employer] Acct ID:[id number]: Date: 1965[facility] Zip: [place] [address] Age: 52Location: ED Sex: F Room/Bed: Att Phy: Diagnosis: SYNCOPE Geetha Phy: Bunny Hugo MDService Date: 05/05/18 Fam Phy: Interpreting Phy: Bebo Mcmanus MD Admit Phy: Ordering Phy: Dev Mckeon M.D. cc: ~ XR chest 1V portable CLINICAL HISTORY: 52 years-old Female presenting with post intubation. TECHNIQUE: Portable upright AP view of the chest was obtained. COMPARISON: 05/05/2018 at 5:06 PM. FINDINGS: Endotracheal tube terminates in the lower thoracic trachea proximally 1.5 cm from the rigoberto. Right subclavian pacer with leads to the right atrium and right ventricular apex. Prosthetic mitral valve. Prosthetic tricuspid valve also suggested. Median sternotomy wires and mediastinal surgical clips. Cardiac silhouette mildly enlarged. Prominence of the main pulmonary artery. Postsurgical changes the right hemithorax suspected with persistent elevation of the right hemidiaphragm. Low lung volumes similar to prior. Significant interval worsening of perihilar and central predominant hazy opacities, which have become more dense significantly on the left. Small right pleural effusion new from prior. No pneumothorax. Calcification projecting over the proximal left humerus may be vascular in etiology. Cholecystectomy clips noted. IMPRESSION: 1. Appropriately positioned endotracheal tube. 2. Significant interval worsening in central predominant infiltrates most concerning for moderate to severe pulmonary edema. 3. New right pleural effusion. Electronically signed by: Bebo Mcmanus M.D. 05/05/2018 8:18 PM Dictated: 05/05/182014 Transcribed: 05/05/182014 [place], [place] [phone] CT Scan Report Patient: Bobby BIANCHI Date: 05/05/18 MR#: [id number]: [address] [employer] Acct ID:[id number]: Date: 1965[facility] Zip: [place] [address] Age: 52Location: 1E Sex: F Room/Bed: [facility] Att Phy: Geoff Chavez MDDiagnosis: RESPIRATORY FAILURE Geetha Phy: Bunny Hugo MDService Date: 05/05/18 Fam Phy: Interpreting Phy: Bebo Mcmanus MD Admit Phy: Geoff Chavez MD Ordering Phy: Luis M Santiago PA-C cc: ~ CT abd pelvis wo con CLINICAL HISTORY: 52 years-old Female presenting with ams - abd hernia. TECHNIQUE: Multidetector CT of the abdomen and pelvis was performed without the use of intravenous contrast. IV contrast: None. A dose lowering technique was used consistent with the principles of ALARA (as low as reasonably achievable). COMPARISON: 11/17/2015. CT DOSE (mGy.cm): The estimated cumulative dose is 2475.26 mGy.cm. FINDINGS: Cull Grader topogram: Endotracheal tube terminates in the lower thoracic trachea. Prosthetic mitral and tricuspid valves with median sternotomy wires. Right subclavian pacer with leads to the right atrium and right ventricular apex. Cholecystectomy clips. Coil carson in the midabdomen indicated of prior ventral hernia repair. Surgical clips project over the left common femoral region. Calcification projects over the left upper arm. Lung bases: Extensive dependent consolidation with diffuse groundglass and patchy upper lobe dependent infiltrates. Postsurgical changes of tricuspid and mitral valve replacements. Pacer leads to the right atrium and right ventricular apex. Multichamber enlargement of the heart. No pericardial or pleural effusion. Liver: Nodular morphology. Innumerable cysts, which also demonstrate peripheral calcification in many lesions. Biliary: Mild biliary ductal prominence likely a reservoir effect in the post cholecystectomy state. Gallbladder surgically absent. Pancreas: Normal noncontrast appearance. Pancreatic ductal dilatation grossly unchanged. Spleen: Enlarged, measuring 13.5 cm in maximal sagittal dimension. Adrenal glands: Normal noncontrast appearance. Kidneys and ureters: Enlarged polycystic kidneys with extensive calcification. Several cysts may demonstrate internal proteinaceous or hemorrhagic material given the slightly higher density. Limited evaluation without intravenous contrast of these lesions. No hydronephrosis. Ureters nondistended. Bladder: Incompletely evaluated secondary to underdistention. Pelvic organs: Normal noncontrast appearance. Bowel: Few diverticula in the proximal sigmoid colon. The mid transverse colon is contained within the ventral hernia in the epigastrium as on prior exam. No evidence of obstruction as a result. The appendix is normal. Medialization of the cecum. No bowel obstruction. Nasogastric tube terminates in the gastric antrum. Mild wall thickening of the duodenal bulb and descending duodenum suggested. Peritoneal cavity: Trace fluid in the abdomen. No free intraperitoneal gas. Lymph nodes: No gross lymphadenopathy allowing for noncontrast technique. Postsurgical changes in the left inguinal region. Vasculature: Atherosclerosis of the normal caliber abdominal aorta. Abdominal wall: Prosthetic mesh from prior ventral hernia repair evident in the periumbilical region. The epigastric ventral hernia sac containing transverse colon and fluid is immediately superior to this. Musculoskeletal: Sclerosis suggests renal osteodystrophy. Calcification in the sacroiliac joints with widened sacral iliac joints suggests amyloid-related arthropathy. Multiple old rib fractures evident. IMPRESSION: 1. Extensive dependent consolidation likely aspiration and atelectasis. Please see separately dictated CT chest. 2. Polycystic kidney and polycystic liver disease. 3. Nodular morphology of the liver with mild splenomegaly raises concern for cirrhosis/fibrosis and portal hypertension. 4. Epigastric hernia containing transverse colon. No bowel obstruction or evidence of strangulation. Appearance unchanged from prior. 5. Duodenal bulb and descending duodenal wall thickening suggested. This may relate to possible portal hypertension (portal enteropathy) versus duodenitis/ enteritis. 6. Renal osteodystrophy. Electronically signed by: Bebo Mcmanus M.D. 05/05/2018 10:24 PM Dictated: 05/05/182214 Transcribed: 05/05/182214 [facility], [place] [phone] CT Scan Report Patient: Bobby BIANCHI Date: 05/05/18 MR#: [id number]: [address] Acct ID:[id number]: Date: 1965[facility] Zip: [place] [address] Age: 52Location: ED Sex: F Room/Bed: Att Phy: Diagnosis: SYNCOPE Geetha Phy: Bunny Hugo MDService Date: 05/05/18 Fam Phy: Interpreting Phy: Bebo Mcmanus MD Admit Phy: Ordering Phy: Luis M Santiago PA-C cc: ~ CT chest wo con CLINICAL HISTORY: 52 years-old Female presenting with resp failure. TECHNIQUE: Multidetector CT imaging of the chest was performed without the use of intravenous contrast. IV contrast: None. A dose lowering technique was used consistent with the principles of ALARA (as low as reasonably achievable). COMPARISON: Chest x-ray performed earlier today and chest CT from 04/01/2013. CT DOSE (mGy.cm): The estimated cumulative dose is 2475.26. FINDINGS: Cull Grader topogram: Endotracheal tube terminates in the lower thoracic trachea. Prosthetic mitral and tricuspid valves with median sternotomy wires. Right subclavian pacer with leads to the right atrium and right ventricular apex. Cholecystectomy clips. Coil carson in the midabdomen indicated of prior ventral hernia repair. Surgical clips project over the left common femoral region. Calcification projects over the left upper arm. On soft tissue windows, normal thyroid and thoracic inlet. No axillary, supraclavicular, or mediastinal lymphadenopathy. Evaluation of the felton limited without intravenous contrast. Atherosclerosis of the aorta. Main pulmonary artery enlarged measuring 2.6 cm in diameter. Prosthetic tricuspid and mitral valves. Coronary artery calcification. Pacer leads to the right atrial appendage and right ventricular apex. Additional epicardial lead noted. Median sternotomy wires. Mild multichamber enlargement of the heart. Trace pleural fluid may be present if any. No pericardial effusion. Numerous well-defined low- density hepatic lesions again evident though several lesions are now accompanied by mural calcification. Nodular contour of the liver suggests cirrhosis. Biliary ductal dilatation may indicate a reservoir effect in the post cholecystectomy state. Splenomegaly. Nasogastric tube extends at least to the gastric lumen. On lung windows, no pneumothorax. Mild centrilobular emphysema. Extensive groundglass opacity with an upper lobe predominance. Mosaic attenuation in the right middle lobe. Extensive dependent consolidation in the bilateral lower lobes with more patchy dependent consolidation in the upper lobes. The endotracheal tube terminates in the lower thoracic trachea. Airways are diffusely narrowed including the right and left mainstem bronchi. Layering debris is suggested in the mainstem bronchi. On bone windows, peripherally calcified arteriovenous fistula in the left upper arm noted. Sclerosis of the vertebral bodies suggestive of renal osteodystrophy. IMPRESSION: 1. Extensive pulmonary infiltrates with a dependent distribution lobes highly concerning for extensive aspiration. Lower lobe consolidation is likely enlarged part extensive atelectasis. 2. Diffuse groundglass opacity in the upper lobes may represent cardiogenic or noncardiogenic pulmonary edema or pulmonary hemorrhage. 3. Extensive debris in the mainstem bronchi with overall narrowed airways. Endotracheal tube in the lower trachea. 4. Interval evolution of polycystic liver disease with development of peripheral calcification of numerous cysts. This is of uncertain significance. Correlate with the patient's history. The liver morphology now suggest cirrhosis. 5. Splenomegaly in the setting of the liver suggests portal hypertension. 6. Additional findings as above. Electronically signed by: Bebo Mcmanus M.D. 05/05/2018 10:15 PM Dictated: 05/05/182206 Transcribed: 05/05/182206 [facility], [place] [phone] CT Scan Report Patient: Bobby BIANCHI Date: 05/05/18 MR#: [id number]: [address] Acct ID:[id number]: Date: [address] Zip: [place] [address] Age: 52Location: ED Sex: F Room/Bed: Att Phy: Diagnosis: SYNCOPE Geetha Phy: Bunny Hugo MDService Date: 05/05/18 Fam Phy: Interpreting Phy: Bebo Mcmanus MD Admit Phy: Ordering Phy: Luis M Santiago PA-C cc: ~ CT chest wo con CLINICAL HISTORY: 52 years-old Female presenting with resp failure. TECHNIQUE: Multidetector CT imaging of the chest was performed without the use of intravenous contrast. IV contrast: None. A dose lowering technique was used consistent with the principles of ALARA (as low as reasonably achievable). COMPARISON: Chest x-ray performed earlier today and chest CT from 04/01/2013. CT DOSE (mGy.cm): The estimated cumulative dose is 2475.26. FINDINGS: Cull Grader topogram: Endotracheal tube terminates in the lower thoracic trachea. Prosthetic mitral and tricuspid valves with median sternotomy wires. Right subclavian pacer with leads to the right atrium and right ventricular apex. Cholecystectomy clips. Coil carson in the midabdomen indicated of prior ventral hernia repair. Surgical clips project over the left common femoral region. Calcification projects over the left upper arm. On soft tissue windows, normal thyroid and thoracic inlet. No axillary, supraclavicular, or mediastinal lymphadenopathy. Evaluation of the felton limited without intravenous contrast. Atherosclerosis of the aorta. Main pulmonary artery enlarged measuring 2.6 cm in diameter. Prosthetic tricuspid and mitral valves. Coronary artery calcification. Pacer leads to the right atrial appendage and right ventricular apex. Additional epicardial lead noted. Median sternotomy wires. Mild multichamber enlargement of the heart. Trace pleural fluid may be present if any. No pericardial effusion. Numerous well-defined low- density hepatic lesions again evident though several lesions are now accompanied by mural calcification. Nodular contour of the liver suggests cirrhosis. Biliary ductal dilatation may indicate a reservoir effect in the post cholecystectomy state. Splenomegaly. Nasogastric tube extends at least to the gastric lumen. On lung windows, no pneumothorax. Mild centrilobular emphysema. Extensive groundglass opacity with an upper lobe predominance. Mosaic attenuation in the right middle lobe. Extensive dependent consolidation in the bilateral lower lobes with more patchy dependent consolidation in the upper lobes. The endotracheal tube terminates in the lower thoracic trachea. Airways are diffusely narrowed including the right and left mainstem bronchi. Layering debris is suggested in the mainstem bronchi. On bone windows, peripherally calcified arteriovenous fistula in the left upper arm noted. Sclerosis of the vertebral bodies suggestive of renal osteodystrophy. IMPRESSION: 1. Extensive pulmonary infiltrates with a dependent distribution lobes highly concerning for extensive aspiration. Lower lobe consolidation is likely enlarged part extensive atelectasis. 2. Diffuse groundglass opacity in the upper lobes may represent cardiogenic or noncardiogenic pulmonary edema or pulmonary hemorrhage. 3. Extensive debris in the mainstem bronchi with overall narrowed airways. Endotracheal tube in the lower trachea. 4. Interval evolution of polycystic liver disease with development of peripheral calcification of numerous cysts. This is of uncertain significance. Correlate with the patient's history. The liver morphology now suggest cirrhosis. 5. Splenomegaly in the setting of the liver suggests portal hypertension. 6. Additional findings as above. Electronically signed by: Bebo Mcmanus M.D. 05/05/2018 10:15 PM Dictated: 05/05/182206 Transcribed: 05/05/182206 Medications Administered Home Medications Medication Instructions Recorded Confirmed albuterol sulfate [Ventolin HFA] 1 puff INHALATION UD PRN 05/05/18 05/05/18 aspirin [Aspir-81] 81 mg PO DAILY 05/05/18 05/05/18 calcium acetate 1,334 mg PO TID 05/05/18 05/05/18 cholecalciferol (vitamin D3) 1,000 unit PO DAILY 05/05/18 05/05/18 [Vitamin D3] gabapentin 300 mg PO HS 05/05/18 05/05/18 levothyroxine 175 mcg PO DAILY 05/05/18 05/05/18 lorazepam 1 mg PO Q12 PRN 05/05/18 05/05/18 oxycodone-acetaminophen 1 tab PO Q12 PRN 05/05/18 05/05/18 Code Status & VTE Plan Code Status Full code VTE Prophylaxis Plan VTE Prophylaxis will be ordered: Yes Critical Care Time Total critical care time was 45 minutes Critical Care Time: Yes Total Critical Care Time: 45
[2018-05-05 21:52] LABS: iSTAT Arterial Blood Gas HCO3 24 meg/L (19-24); iSTAT Carbon Dioxide 26 mEq/l (24-31); iSTAT Hemoglobin 12.2 g/dl (12.0-16.0)
--- NOTE | 2018-05-05 22:08 | CT Scan Report ---
CT head/brain wo con CLINICAL HISTORY: 52 years-old Female presenting with ams. TECHNIQUE: Multidetector CT imaging of the head was performed without the use of intravenous contrast . IV contrast: None. A dose lowering technique was used consistent with the principles of ALARA (as l ow as reasonably achievable). COMPARISON: None. CT DOSE (mGy.cm): The estimated cumulative dose is 2475.26. 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 Prosthetic mitral and tri cuspid valves with median sternotomy wires. Right subclavian pacer with leads to the right atrium and right ventricular apex. Cholecystectomy clips. Coil carson in the midabdomen indicated of prior ciarra tral hernia repair. Surgical clips project over the left common femoral region. Calcification project s over the left upper arm. Ventricles and sulci normal in size. No hemorrhage. Brain parenchyma normal in appearance with preser allen barfield-white differentiation. No acute territorial infarct. No mass effect or midline shift. No ext ra-axial fluid collection. Extensive fluid in the nasopharynx as a result of the endotracheal tube. C alvarium intact. IMPRESSION: 1. No acute intracranial abnormality. Electronically signed by: Bebo Mcmanus M.D. 05/05/2018 10:07 PM
--- NOTE | 2018-05-05 22:16 | CT Scan Report ---
CT chest wo con CLINICAL HISTORY: 52 years-old Female presenting with resp failure. TECHNIQUE: Multidetector CT imaging of the chest was performed without the use of intravenous contras t. IV contrast: None. A dose lowering technique was used consistent with the principles of ALARA (as low as reasonably achievable). COMPARISON: Chest x-ray performed earlier today and chest CT from 04/01/2013. CT DOSE (mGy.cm): The estimated cumulative dose is 2475.26. FINDINGS: Search Lead topogram: Endotracheal tube terminates in the lower thoracic trachea. Prosthetic mitral and tri cuspid valves with median sternotomy wires. Right subclavian pacer with leads to the right atrium and right ventricular apex. Cholecystectomy clips. Coil carson in the midabdomen indicated of prior ciarra tral hernia repair. Surgical clips project over the left common femoral region. Calcification project s over the left upper arm. On soft tissue windows, normal thyroid and thoracic inlet. No axillary, supraclavicular, or mediastin al lymphadenopathy. Evaluation of the felton limited without intravenous contrast. Atherosclerosis of t he aorta. Main pulmonary artery enlarged measuring 2.6 cm in diameter. Prosthetic tricuspid and aisha l valves. Coronary artery calcification. Pacer leads to the right atrial appendage and right ventricu lar apex. Additional epicardial lead noted. Median sternotomy wires. Mild multichamber enlargement of the heart. Trace pleural fluid may be present if any. No pericardial effusion. Numerous well-defined low-density hepatic lesions again evident though several lesions are now accompanied by mural calcif ication. Nodular contour of the liver suggests cirrhosis. Biliary ductal dilatation may indicate a re servoir effect in the post cholecystectomy state. Splenomegaly. Nasogastric tube extends at least to the gastric lumen. On lung windows, no pneumothorax. Mild centrilobular emphysema. Extensive groundglass opacity with an upper lobe predominance. Mosaic attenuation in the right middle lobe. Extensive dependent consolidat ion in the bilateral lower lobes with more patchy dependent consolidation in the upper lobes. The end otracheal tube terminates in the lower thoracic trachea. Airways are diffusely narrowed including the right and left mainstem bronchi. Layering debris is suggested in the mainstem bronchi. On bone windows, peripherally calcified arteriovenous fistula in the left upper arm noted. Sclerosis of the vertebral bodies suggestive of renal osteodystrophy. IMPRESSION: 1. Extensive pulmonary infiltrates with a dependent distribution lobes highly concerning for extensi ve aspiration. Lower lobe consolidation is likely enlarged part extensive atelectasis. 2. Diffuse groundglass opacity in the upper lobes may represent cardiogenic or noncardiogenic pulmon tawnya edema or pulmonary hemorrhage. 3. Extensive debris in the mainstem bronchi with overall narrowed airways. Endotracheal tube in the lower trachea. 4. Interval evolution of polycystic liver disease with development of peripheral calcification of nu merous cysts. This is of uncertain significance. Correlate with the patient's history. The liver morp hology now suggest cirrhosis. 5. Splenomegaly in the setting of the liver suggests portal hypertension. 6. Additional findings as above. Electronically signed by: Bebo Mcmanus M.D. 05/05/2018 10:15 PM
[2018-05-05 22:22] LABS: Cortisol Random 29.45 mcg/dl; T3 Free 1.03 pg/ml (2.3-4.2)
--- NOTE | 2018-05-05 22:26 | CT Scan Report ---
CT abd pelvis wo con CLINICAL HISTORY: 52 years-old Female presenting with ams - abd hernia. TECHNIQUE: Multidetector CT of the abdomen and pelvis was performed without the use of intravenous co ntrast. IV contrast: None. A dose lowering technique was used consistent with the principles of ALARA (as low as reasonably achievable). COMPARISON: 11/17/2015. CT DOSE (mGy.cm): The estimated cumulative dose is 2475.26 mGy.cm. FINDINGS: Pool Hand topogram: Endotracheal tube terminates in the lower thoracic trachea. Prosthetic mitral and tri cuspid valves with median sternotomy wires. Right subclavian pacer with leads to the right atrium and right ventricular apex. Cholecystectomy clips. Coil carson in the midabdomen indicated of prior ciarra tral hernia repair. Surgical clips project over the left common femoral region. Calcification project s over the left upper arm. Lung bases: Extensive dependent consolidation with diffuse groundglass and patchy upper lobe dependen t infiltrates. Postsurgical changes of tricuspid and mitral valve replacements. Pacer leads to the ri ght atrium and right ventricular apex. Multichamber enlargement of the heart. No pericardial or pleur al effusion. Liver: Nodular morphology. Innumerable cysts, which also demonstrate peripheral calcification in many lesions. Biliary: Mild biliary ductal prominence likely a reservoir effect in the post cholecystectomy state. Gallbladder surgically absent. Pancreas: Normal noncontrast appearance. Pancreatic ductal dilatation grossly unchanged. Spleen: Enlarged, measuring 13.5 cm in maximal sagittal dimension. Adrenal glands: Normal noncontrast appearance. Kidneys and ureters: Enlarged polycystic kidneys with extensive calcification. Several cysts may demo nstrate internal proteinaceous or hemorrhagic material given the slightly higher density. Limited kindra luation without intravenous contrast of these lesions. No hydronephrosis. Ureters nondistended. Bladder: Incompletely evaluated secondary to underdistention. Pelvic organs: Normal noncontrast appearance. Bowel: Few diverticula in the proximal sigmoid colon. The mid transverse colon is contained within th e ventral hernia in the epigastrium as on prior exam. No evidence of obstruction as a result. The nirmal endix is normal. Medialization of the cecum. No bowel obstruction. Nasogastric tube terminates in the gastric antrum. Mild wall thickening of the duodenal bulb and descending duodenum suggested. Peritoneal cavity: Trace fluid in the abdomen. No free intraperitoneal gas. Lymph nodes: No gross lymphadenopathy allowing for noncontrast technique. Postsurgical changes in the left inguinal region. Vasculature: Atherosclerosis of the normal caliber abdominal aorta. Abdominal wall: Prosthetic mesh from prior ventral hernia repair evident in the periumbilical region. The epigastric ventral hernia sac containing transverse colon and fluid is immediately superior to t his. Musculoskeletal: Sclerosis suggests renal osteodystrophy. Calcification in the sacroiliac joints with widened sacral iliac joints suggests amyloid-related arthropathy. Multiple old rib fractures evident . IMPRESSION: 1. Extensive dependent consolidation likely aspiration and atelectasis. Please see separately dictat ed CT chest. 2. Polycystic kidney and polycystic liver disease. 3. Nodular morphology of the liver with mild splenomegaly raises concern for cirrhosis/fibrosis and portal hypertension. 4. Epigastric hernia containing transverse colon. No bowel obstruction or evidence of strangulation. Appearance unchanged from prior. 5. Duodenal bulb and descending duodenal wall thickening suggested. This may relate to possible port al hypertension (portal enteropathy) versus duodenitis/enteritis. 6. Renal osteodystrophy. Electronically signed by: Bebo Mcmanus M.D. 05/05/2018 10:24 PM
--- NOTE | 2018-05-05 22:29 | Emergency Department Note ---
Entered by Lawson Morgan acting as a scribe for History of Present Illness General Chief complaint: Illness Stated complaint: ILLNESS, Time Seen by Provider: 05/05/18 16:15 Source: patient Limitations: clinical acuity History of Present Illness Provider complaint: Weakness/Unresponsive Maximum Pain Intensity: 6 This history is significantly limited secondary unresponsiveness. The patient is a 52 year old female with a past medical history of valvular heart disease, systolic heart failure, HLD, COPD, drug abuse, endocarditis, bacteremia, neuropathy, dialysis, tricuspid valve repair, mitral valve repair, tonsillectomy, and medical non-compliance who presents to the Emergency Room for weakness and confusion. Per triage note the patient presents for worsening weakness and confusion. The patient is on dialysis and had her last treatment on Sunday. She is on 3.5 L of oxygen at home via nasal cannula. The patient arrives ALS from home. Home Medications Home Medications Medication Instructions Recorded Confirmed Type albuterol sulfate [Ventolin HFA] 1 puff INHALATION UD PRN 05/05/18 05/05/18 History aspirin [Aspir-81] 81 mg PO DAILY 05/05/18 05/05/18 History calcium acetate 1,334 mg PO TID 05/05/18 05/05/18 History cholecalciferol (vitamin D3) 1,000 unit PO DAILY 05/05/18 05/05/18 History [Vitamin D3] gabapentin 300 mg PO HS 05/05/18 05/05/18 History levothyroxine 175 mcg PO DAILY 05/05/18 05/05/18 History lorazepam 1 mg PO Q12 PRN 05/05/18 05/05/18 History oxycodone-acetaminophen 1 tab PO Q12 PRN 05/05/18 05/05/18 History Allergies Allergy/AdvReac Type Severity Reaction Status Date / Time No Known Allergies Allergy Verified 02/06/17 12:26 Past Med/Surg History Medical History History of valvular heart disease (Chronic) "s/p mitral and tricuspid valve repair 12/2012" Chronic systolic heart failure (Chronic) H/O echocardiogram (Chronic) "11/2013: Moderate systolic dysfunction with 40% ejection fraction, status post mitral and tricuspid repair, mild tricuspid regurgitation." Chronic kidney disease stage 5 (Chronic Unknown) "hemodialysis under direction of Dr. Hugo " On 10/31/11 15:52 Rasta Boyer wrote "hemodialysis under direction of Dr. Hugo " On 10/31/11 15:52 Rasta Boyer wrote "hemodialysis under direction of Dr. Hugo " On 10/31/11 15:52 Rasta Boyer wrote "hemodialysis under direction of Dr. Hugo " On 10/31/11 15:52 Rasta Boyer wrote "hemodialysis under direction of Dr. Hugo " On 10/31/11 15:52 Rasta Boyer wrote "hemodialysis under direction of Dr. Hugo " On 10/31/11 15:52 Rasta Boyer wrote "hemodialysis under direction of Dr. Hugo " On 10/31/11 15:52 Rasta Boyer wrote "hemodialysis under direction of Dr. Hugo " Polycystic kidney disease, adult type (Chronic Unknown) Dyslipidemia (Chronic) Sleep apnea (Chronic Unknown) COPD (chronic obstructive pulmonary disease) (Chronic) History of drug abuse (Chronic) Depression (Chronic) History of endocarditis (Chronic) Chronic anxiety (Chronic Unknown) Anemia (Chronic) Neuropathy (Chronic) Surgical History S/P mitral valve repair (Chronic) "12/2012" S/P tricuspid valve repair (Chronic) "12/2012" S/P placement of cardiac pacemaker (Chronic) "12/2012" S/P right and left heart catheterization (Chronic) "2012- minor luminal regularities of the coronary arteries, severe pulmonary hypertension, with markedly elevated pulmonary capillary wedge pressure" S/P hernia repair (Chronic) S/P tonsillectomy (Chronic) Social History Smoking Status: Unknown if ever smoked Preferred Language: Mongolian Review of Systems See HPI for pertinent positives & negatives. and A total of 10 systems reviewed and were otherwise negative Physical Exam Vital Signs Vital Signs - 24 hr 05/05/18 15:54 05/05/18 16:45 05/05/18 17:34 Temperature 37.2 C Temperature Source Oral Sepsis Recent Fever Within 48 Hours No Sepsis New/Unexplained Change in Mental Status Yes Sepsis Action Taken by Nursing No Action Required Pulse Rate 86 Pulse Rate [Left] 93 H 94 H Respiratory Rate 22 21 22 Respiratory Effort / Characteristics Spontaneous Accessory Muscle Use Blood Pressure 96/66 L Blood Pressure [Right Arm] 117/72 102/65 Blood Pressure Mean 76 Blood Pressure Mean [Right Arm] 87 77 Blood Pressure Position Lying Blood Pressure Position [Right Arm] Lying Lying Pulse Oximetry 97 96 99 Oxygen Delivery Method Oxymask Oxymask Oxymask Fraction of Inspired Oxygen SaO2/FiO2 Ratio 05/05/18 18:14 05/05/18 18:17 05/05/18 18:23 Temperature Temperature Source Sepsis Recent Fever Within 48 Hours Sepsis New/Unexplained Change in Mental Status Sepsis Action Taken by Nursing Pulse Rate 92 H Pulse Rate [Left] 92 H 91 H Respiratory Rate 19 20 29 H Respiratory Effort / Characteristics Spontaneous Spontaneous Labored Blood Pressure Blood Pressure [Right Arm] 92/43 L 71/46 L Blood Pressure Mean Blood Pressure Mean [Right Arm] 59 54 Blood Pressure Position Blood Pressure Position [Right Arm] Lying Pulse Oximetry 97 100 93 Oxygen Delivery Method BiPAP BiPAP Fraction of Inspired Oxygen 40 SaO2/FiO2 Ratio 05/05/18 18:32 05/05/18 19:03 05/05/18 20:28 Temperature 36.9 C Temperature Source Oral Sepsis Recent Fever Within 48 Hours Sepsis New/Unexplained Change in Mental Status Sepsis Action Taken by Nursing Pulse Rate Pulse Rate [Left] 91 H 89 90 Respiratory Rate 20 19 26 H Respiratory Effort / Characteristics Mechanically Ventilated Blood Pressure Blood Pressure [Right Arm] 95/58 L 113/59 L 79/52 L Blood Pressure Mean Blood Pressure Mean [Right Arm] 70 77 61 Blood Pressure Position Blood Pressure Position [Right Arm] Pulse Oximetry 92 100 97 Oxygen Delivery Method BiPAP Non-rebreather Mechanical Vent Fraction of Inspired Oxygen 40 SaO2/FiO2 Ratio 242 05/05/18 21:30 05/05/18 21:46 Temperature Temperature Source Sepsis Recent Fever Within 48 Hours Sepsis New/Unexplained Change in Mental Status Sepsis Action Taken by Nursing Pulse Rate Pulse Rate [Left] 80 Respiratory Rate 26 H 26 H Respiratory Effort / Characteristics Blood Pressure Blood Pressure [Right Arm] 97/63 L Blood Pressure Mean Blood Pressure Mean [Right Arm] 74 Blood Pressure Position Blood Pressure Position [Right Arm] Pulse Oximetry 95 95 Oxygen Delivery Method Mechanical Vent Mechanical Vent Fraction of Inspired Oxygen SaO2/FiO2 Ratio GENERAL: Moderate distress, somnolent. EYE EXAM: Normal conjunctiva. PERRL, Pinpoint pupils. OROPHARYNX: Dry mucus membranes. NECK: Supple, no nuchal rigidity, no adenopathy, non-tender. no signs of meningismus. LUNGS: Decreased breath sounds throughout. Normal chest wall mechanics. CHEST: Device in chest. HEART: NSR. ABDOMEN: Abdomen soft. SKIN: No rashes and no bruising. UPPER EXTREMITIES: Upper extremities are grossly normal. AV fistula in place in the left upper extremity with a palpable thrill. LOWER EXTREMITIES: No pitting edema. NEURO EXAM: Somnolent. She awakens and opens eyes to sternal rub. Non-verbal. Procedures Intubation Time out performed: Yes sedative: Ketamine Mg Given: 100 paralytic: Rocuronium Mg Given: 100 Laryngoscope: fiber optic video scope ET Tube Size: 7.5 Tube Secured Depth (cm): 24 Tube Secured Location: teeth Tube Placement Confirmation: visualized tube passing through cords, equal breath sounds bilaterally and no breath sounds over epigastrium Patient Tolerated Procedure: well Intubation Complications: none Course 162: Past medical records reviewed. The patient was evaluated in room C2B, and a complete history and physical examination were performed. 165: The nurses state that they administered NARCAN and the patient is now " all over the bed" and agitated. 1824: Nursing states the patient's blood pressure dropped once again. 7: I checked the patient, she is hypotensive. 1843: I checked the patient. Her pressure is holding. She has received another 250 of fluids. 1938: The patient has been moved to B1. Respiratory Therapy states that the PCO2 level is still critical. 1950: I performed an Intubation at this time. See procedure note. 2004: I reviewed the patient's case with Luis M Santiago [facility]. He will evaluate the patient for further management. 2021: I reviewed the patient's case with Dr. Jared Vo [facility]. He will evaluate the patient for further management. Consultations Consultation #1: 2004: I reviewed the patient's case with Luis M Santiago [facility]. He will evaluate the patient for further management. Administered Medications Naloxone HCl (Narcan) 0.4 mg IV Q2M PRN PRN Reason: RESPIRATORY DEPRESSION Last Admin: 05/05/18 16:49 Dose: 0.4 mg Discontinued Medications Naloxone HCl (Narcan) Confirm Administered Dose 0.4 mg .ROUTE .STK-MED ONE Stop: 05/05/18 16:38 Last Admin: 05/05/18 16:43 Dose: 0.4 mg Rocuronium 100 mg IV Ketamine 100 mg IV Versed gtt 1mg/hr Medical Decision Making Medical Records Attestation: I reviewed the patient's medical records. Home Medications Current Medication List: was personally reviewed by me Laboratory Data Attestation: I reviewed the patient's lab results. Result diagrams: 05/05/18 16:40 05/05/18 16:40 Lab Results 05/05/18 05/05/18 05/05/18 Range/Units 16:40 16:40 16:40 WBC 7.09 (4.8-10.8) K/uL RBC 4.00 L (4.2-5.4) M/uL Hgb 12.8 (12.0-16.0) g/dL POC Hgb (12.0-16.0) g/dl Hct 41.6 (37-47) % POC Hct (37-47) % MCV 104.0 H (80-100) fL MCH 32.0 (25-34) pg MCHC 30.8 L (32-36) g/dL RDW Std Deviation 57.3 H (36.4-46.3) fL RDW Coeff of Ya 14.9 H (11.5-14.5) % Plt Count 117 L (130-400) K/uL MPV 10.9 H (7.4-10.4) fL Immature Gran % (Auto) 0.3 % Neut % (Auto) 88.7 % Lymph % (Auto) 5.9 % Wirt % (Auto) 4.7 % Eos % (Auto) 0.1 % Baso % (Auto) 0.3 % Immature Gran # (Auto) 0.02 (0.00-0.02) K/uL Neut # (Auto) 6.29 (1.4-6.5) K/uL Lymph # (Auto) 0.42 L (1.2-3.4) K/uL Wirt # (Auto) 0.33 (0.11-0.59) K/uL Eos # (Auto) 0.01 (0-0.5) K/uL Baso # (Auto) 0.02 (0-0.2) K/uL POC pH (7.35-7.45) POC pCO2 (35-46) mmHg POC pO2 (80-95) mmHg POC HCO3 (19-24) tonio/L POC Base Excess (-9-1.8) tonio/L ABG pH (7.35-7.45) ABG pCO2 (35-46) mmHg ABG pO2 (80-95) mm/Hg ABG HCO3 (19-24) mmol/L POC ABG O2 Sat (90-95) % ABG O2 Saturation (90-95) % ABG Base Excess (-9-1.8) mEq/L Jeb Test (Pos) Barometric Pressure mm/Hg Oxygen Given POC Sodium (135-144) mEq/L Sodium 131 L (136-145) mmol/L POC Potassium (3.3-5.0) mEq/L Potassium 4.8 (3.5-5.1) mmol/L POC Chloride (101-112) mEq/L Chloride 90 L (98-107) mmol/L Carbon Dioxide 30 (21-32) mmol/L POC Total CO2 (24-31) mEq/l Anion Gap 10.0 (3-11) POC Anion Gap (16-25) mmol/L POC BUN (7-18) mg/dl BUN 38 H (7-18) mg/dl Creatinine 8.13 H* (0.6-1.2) mg/dl POC Creatinine (0.6-1.3) mg/dl Est Cr Clr Drug Dosing Not Reportable Est GFR ( Amer) 5.9 Est GFR (Non-Af Amer) 5.1 BUN/Creatinine Ratio 4.7 L (10-20) Glucose 104 H (70-99) mg/dl POC Glucose (70-99) POC Glucose (other) (70-99) mg/dl Calcium 8.1 L (8.5-10.1) mg/dl POC Ioniz Calcium Chivo (1.12-1.32) mmol/l Total Bilirubin 0.3 (0.2-1) mg/dl AST 29 (15-37) U/L ALT 18 (12-78) U/L Alkaline Phosphatase 273 H (45-117) U/L Troponin I < 0.015 (0-0.045) ng/ml Total Protein 8.7 H (6.4-8.2) gm/dl Albumin 3.6 (3.4-5.0) gm/dl Globulin 5.1 H (2.5-4.0) gm/dl Albumin/Globulin Ratio 0.7 L (0.9-2) TSH 155.000 H (0.300-4.500) uIu/ml Salicylates 2.0 L (2.8-20) mg/dl Acetaminophen < 2 L (10-30) ug/ml Ethyl Alcohol mg/dL (0-3) mg/dl 05/05/18 05/05/18 05/05/18 Range/Units 16:43 16:46 17:06 WBC (4.8-10.8) K/uL RBC (4.2-5.4) M/uL Hgb (12.0-16.0) g/dL POC Hgb 16.0 (12.0-16.0) g/dl Hct (37-47) % POC Hct 47 (37-47) % MCV (80-100) fL MCH (25-34) pg MCHC (32-36) g/dL RDW Std Deviation (36.4-46.3) fL RDW Coeff of Ya (11.5-14.5) % Plt Count (130-400) K/uL MPV (7.4-10.4) fL Immature Gran % (Auto) % Neut % (Auto) % Lymph % (Auto) % Wirt % (Auto) % Eos % (Auto) % Baso % (Auto) % Immature Gran # (Auto) (0.00-0.02) K/uL Neut # (Auto) (1.4-6.5) K/uL Lymph # (Auto) (1.2-3.4) K/uL Wirt # (Auto) (0.11-0.59) K/uL Eos # (Auto) (0-0.5) K/uL Baso # (Auto) (0-0.2) K/uL POC pH (7.35-7.45) POC pCO2 (35-46) mmHg POC pO2 (80-95) mmHg POC HCO3 (19-24) tonio/L POC Base Excess (-9-1.8) toino/L ABG pH (7.35-7.45) ABG pCO2 (35-46) mmHg ABG pO2 (80-95) mm/Hg ABG HCO3 (19-24) mmol/L POC ABG O2 Sat (90-95) % ABG O2 Saturation (90-95) % ABG Base Excess (-9-1.8) mEq/L Jeb Test (Pos) Barometric Pressure mm/Hg Oxygen Given POC Sodium 133 L (135-144) mEq/L Sodium (136-145) mmol/L POC Potassium 5.0 (3.3-5.0) mEq/L Potassium (3.5-5.1) mmol/L POC Chloride 94 L (101-112) mEq/L Chloride (98-107) mmol/L Carbon Dioxide (21-32) mmol/L POC Total CO2 33 H (24-31) mEq/l Anion Gap (3-11) POC Anion Gap 13.0 L (16-25) mmol/L POC BUN 43 H (7-18) mg/dl BUN (7-18) mg/dl Creatinine (0.6-1.2) mg/dl POC Creatinine 6.9 H* (0.6-1.3) mg/dl Est Cr Clr Drug Dosing Est GFR ( Amer) Est GFR (Non-Af Amer) BUN/Creatinine Ratio (10-20) Glucose (70-99) mg/dl POC Glucose 109 H (70-99) POC Glucose (other) 102 H (70-99) mg/dl Calcium (8.5-10.1) mg/dl POC Ioniz Calcium Chivo 1.00 L (1.12-1.32) mmol/l Total Bilirubin (0.2-1) mg/dl AST (15-37) U/L ALT (12-78) U/L Alkaline Phosphatase (45-117) U/L Troponin I (0-0.045) ng/ml Total Protein (6.4-8.2) gm/dl Albumin (3.4-5.0) gm/dl Globulin (2.5-4.0) gm/dl Albumin/Globulin Ratio (0.9-2) TSH (0.300-4.500) uIu/ml Salicylates (2.8-20) mg/dl Acetaminophen (10-30) ug/ml Ethyl Alcohol mg/dL < 3.0 (0-3) mg/dl 05/05/18 05/05/18 05/05/18 Range/Units 17:06 19:36 21:37 WBC (4.8-10.8) K/uL RBC (4.2-5.4) M/uL Hgb (12.0-16.0) g/dL POC Hgb 12.2 (12.0-16.0) g/dl Hct (37-47) % POC Hct 36 L (37-47) % MCV (80-100) fL MCH (25-34) pg MCHC (32-36) g/dL RDW Std Deviation (36.4-46.3) fL RDW Coeff of Ya (11.5-14.5) % Plt Count (130-400) K/uL MPV (7.4-10.4) fL Immature Gran % (Auto) % Neut % (Auto) % Lymph % (Auto) % Wirt % (Auto) % Eos % (Auto) % Baso % (Auto) % Immature Gran # (Auto) (0.00-0.02) K/uL Neut # (Auto) (1.4-6.5) K/uL Lymph # (Auto) (1.2-3.4) K/uL Wirt # (Auto) (0.11-0.59) K/uL Eos # (Auto) (0-0.5) K/uL Baso # (Auto) (0-0.2) K/uL POC pH 7.06 L* 7.25 L (7.35-7.45) POC pCO2 102 H 56 H (35-46) mmHg POC pO2 110 H 53 L (80-95) mmHg POC HCO3 29 H 24 (19-24) tonio/L POC Base Excess -1.0 -3.0 (-9-1.8) tonio/L ABG pH 7.18 L* (7.35-7.45) ABG pCO2 76 H (35-46) mmHg ABG pO2 64 L (80-95) mm/Hg ABG HCO3 28 H (19-24) mmol/L POC ABG O2 Sat 95.0 (90-95) % ABG O2 Saturation 88.6 L (90-95) % ABG Base Excess -2.2 (-9-1.8) mEq/L Jeb Test Unk (Pos) Barometric Pressure 730.1 mm/Hg Oxygen Given 7L POC Sodium 134 L (135-144) mEq/L Sodium (136-145) mmol/L POC Potassium 4.6 (3.3-5.0) mEq/L Potassium (3.5-5.1) mmol/L POC Chloride (101-112) mEq/L Chloride (98-107) mmol/L Carbon Dioxide (21-32) mmol/L POC Total CO2 32 H 26 (24-31) mEq/l Anion Gap (3-11) POC Anion Gap (16-25) mmol/L POC BUN (7-18) mg/dl BUN (7-18) mg/dl Creatinine (0.6-1.2) mg/dl POC Creatinine (0.6-1.3) mg/dl Est Cr Clr Drug Dosing Est GFR ( Amer) Est GFR (Non-Af Amer) BUN/Creatinine Ratio (10-20) Glucose (70-99) mg/dl POC Glucose (70-99) POC Glucose (other) (70-99) mg/dl Calcium (8.5-10.1) mg/dl POC Ioniz Calcium Chivo (1.12-1.32) mmol/l Total Bilirubin (0.2-1) mg/dl AST (15-37) U/L ALT (12-78) U/L Alkaline Phosphatase (45-117) U/L Troponin I (0-0.045) ng/ml Total Protein (6.4-8.2) gm/dl Albumin (3.4-5.0) gm/dl Globulin (2.5-4.0) gm/dl Albumin/Globulin Ratio (0.9-2) TSH (0.300-4.500) uIu/ml Salicylates (2.8-20) mg/dl Acetaminophen (10-30) ug/ml Ethyl Alcohol mg/dL (0-3) mg/dl Imaging Data Attestation: I personally reviewed and interpreted this imaging study as follows : Radiologist's Impression: XR chest 1V portable CLINICAL HISTORY: 52 years-old Female presenting with weakness. TECHNIQUE: Portable semiupright AP view of the chest was obtained. COMPARISON: 09/21/2017. FINDINGS: Right subclavian pacer with leads to the right atrium and right ventricular apex. Prosthetic mitral valve. Median sternotomy wires and mediastinal surgical clips. Cardiac silhouette moderately enlarged. Significant enlargement of the main pulmonary artery. Pulmonary vascular prominence. Mildly low lung volumes with elevation of the right hemidiaphragm. Patchy groundglass opacity and/or added density of the mid lungs and left upper lung. No large effusion or pneumothorax. IMPRESSION: 1. Cardiomegaly with volume overload/congestive change and suspected moderate pulmonary edema. Underlying infection is difficult to exclude. 2. Evidence of main pulmonary artery enlargement consistent with pulmonary hypertension. Electronically signed by: Bebo Mcmanus M.D. 05/05/2018 5:34 PM XR chest 1V portable CLINICAL HISTORY: 52 years-old Female presenting with post intubation. TECHNIQUE: Portable upright AP view of the chest was obtained. COMPARISON: 05/05/2018 at 5:06 PM. FINDINGS: Endotracheal tube terminates in the lower thoracic trachea proximally 1.5 cm from the rigoberto. Right subclavian pacer with leads to the right atrium and right ventricular apex. Prosthetic mitral valve. Prosthetic tricuspid valve also suggested. Median sternotomy wires and mediastinal surgical clips. Cardiac silhouette mildly enlarged. Prominence of the main pulmonary artery. Postsurgical changes the right hemithorax suspected with persistent elevation of the right hemidiaphragm. Low lung volumes similar to prior. Significant interval worsening of perihilar and central predominant hazy opacities, which have become more dense significantly on the left. Small right pleural effusion new from prior. No pneumothorax. Calcification projecting over the proximal left humerus may be vascular in etiology. Cholecystectomy clips noted. IMPRESSION: 1. Appropriately positioned endotracheal tube. 2. Significant interval worsening in central predominant infiltrates most concerning for moderate to severe pulmonary edema. 3. New right pleural effusion. Electronically signed by: Bebo Mcmanus M.D. 05/05/2018 8:18 PM ECG Data Attestation: I personally reviewed and interpreted this ECG as follows: Indication: altered mental status Rate (beats per minute): 97 Rhythm: other (Atrial sensed, v-paced rhythm) Findings: + other (Wide QRS) and + LBBB Comparison ECG Date: from (09/20/2017) Change: no significant change (Morphology and v-paced rhythm unchaged. ) Blood Pressure Blood Pressure Findings: Normal blood pressure MDM Narrative This history is significantly limited secondary unresponsiveness. The patient is a 52 year old female with a past medical history of valvular heart disease, systolic heart failure, HLD, COPD, drug abuse, endocarditis, bacteremia, neuropathy, dialysis, tricuspid valve repair, mitral valve repair, tonsillectomy, and medical non-compliance who presents to the Emergency Room for weakness and confusion. Differential Diagnosis includes: Differential includes acute coronary syndrome, myocardial infarction, CVA, TIA, anemia, infection, pneumonia, UTI, pyelonephritis, poor nutrition, dehydration, electrolyte disturbance,hypoglycemia. Patient was seen and evaluated the bedside. Upon initial presentation the patient was not very alert nor coherent. The patient did have some pinpoint pupils. A blood glucose was checked and Narcan was given. The patient was slightly more active but the patient was still not able to answer questions nor follow commands. Patient did have blood work completed along with a chest film. Tox labs were also drawn. The patient had a normal blood glucose. The patient had a abnormal kidney function which is consistent with the patient's prior disease. Potassium of 5. Patient does have some sonorous breath sounds was placed on BiPAP as the patient's ABG showed an elevated PCO2 and a low pH. This was trialed for approximate 1 hour's time. A repeat gas was checked and the patient's PCO2 increased with an even worsening pH to 7.06. The patient was subsequently intubated with ketamine and rocuronium. The patient did have a post intubation chest x-ray which was obtained. This did show good positioning of the ET tube. The patient does have some pulmonary edema. Patient had been given small amount of IV fluid prior as the patient has slightly lower pressure after being started on BiPAP. The patient tolerated the intubation without issue. I did speak with the on-call hospitalist as well as the photoengraving proofer. A repeat gas was obtained which showed improvement of her pH and PCO2 on a VBG. Patient was subsequently admitted to the intensive care unit intubated. I did discuss with the medicine team about the patient's elevated TSH. We did discuss possibility of myxedema coma. Impression & Plan Acute respiratory failure with hypoxia and hypercarbia, End-stage renal disease (ESRD) Critical Care Time I have personally spent greater than 125 minutes of critical care time in the direct management of this patient. This includes bedside care, interpretation of diagnostic studies, and testing, discussion with consultants, patient, and family members, and other required patient management activities. This 125 minutes is in excess of all separately billable procedures. Critical Care Time: Yes Total Critical Care Time: 125 Discharge Plan Visit Data *Final* Discharge Date/Time: 05/05/18 21:46 Chief Complaint: Illness Stated Complaint: ILLNESS, ED Provider: Dev Mckeon Discharge Problem: Acute respiratory failure with hypoxia and hypercarbia, End-stage renal disease (ESRD) Patient Disposition: Admitted As Inpatient Discharge Instructions Interventions: ED Discharge Assessment Last Done: 05/05/18 21:46 The scribe's documentation has been prepared under my direction and personally reviewed by me in its entirety. I confirm that the note above accurately reflects all work, treatment, procedures, and medical decision making performed by me.
[2018-05-05] MEDS ORDERED: LEVOTHYROXINE SODIUM 100 MCG in SYRINGE 0 ML IV ONE (22:30)
[2018-05-05] MEDS ORDERED: CARBOHYDRATES FOR HYPOGLYCEMIA PO PRN (22:31)
[2018-05-05] MEDS ORDERED: GLUCOSE 10 TABS/TUBE PO PRN (22:31)
[2018-05-05] MEDS ORDERED: GLUCAGON FOR INJ 1 MG VIAL SQ PRN (22:31)
[2018-05-05] MEDS ORDERED: DEXTROSE 50% 50 ML SYRINGE IV PRN (22:31)
[2018-05-05] MEDS ORDERED: ICU PROTOCOL FOR HYPERGLYCEMIA PRN (22:31)
[2018-05-05] MEDS ORDERED: GLUCOSE 40% GEL 15 GM TUBE PO PRN (22:31)
[2018-05-05] MEDS ORDERED: PIPERACILL/TAZOBAC CONSULT ACTIVE PRN (23:09)
[2018-05-05] MEDS ORDERED: VANCOMYCIN CONSULT ACTIVE PRN (23:10)
[2018-05-05] MEDS ORDERED: PIPERACILLIN/TAZOBACTAM 2.25 GM in DEXTROSE 5% 100 ML IV SCH (23:15)
[2018-05-05] MEDS ORDERED: VANCOMYCIN HCL 1,000 MG in SODIUM CHLORIDE 0.9% 250 ML IV SCH (23:15)
[2018-05-05] MEDS: HYDROCORTISONE SOD 50 MG in SYRINGE 0 ML IV SCH (23:16)
[2018-05-05] MEDS: LEVALBUTEROL 1.25MG/0.5ML NEB INH SCH (23:29)
[2018-05-05] MEDS: IPRATROPIUM BROMIDE NEB SOLN 0.02% 2.5 ML VIAL INH SCH (23:30)
[2018-05-06] MEDS ORDERED: VANCOMYCIN HCL 1,500 MG in SODIUM CHLORIDE 0.9% 500 ML IV SCH
[2018-05-06] MEDS ORDERED: XOPENEX/ATROVENT 1.25mg/0.5MG NEB COMBO NEB SCH
[2018-05-06] MEDS ORDERED: PIPERACILLIN/TAZOBACTAM 3.375 GM in DEXTROSE 5% 100 ML IV ONE
[2018-05-06] MEDS: CALCIUM ACETATE 667 MG CAP PO SCH ×4 (00:03→21:25)
--- NOTE | 2018-05-06 00:28 | Procedure Note ---
Procedure Note Date of Service May 06, 2018 Procedure: Mcc Indwelling Peripherally Inserted IV Catheter Placement Attending: Dr. Chavez APC: Luis M Santiago PA-C Indication: Need for IV Access, Poor Vascular Access Anesthesia: None A time-out was completed verifying correct patient, procedure, site, positioning , and implant(s) or special equipment if applicable. Utilizing bedside ultrasound, vascularity of the RIGHT upper extremity was assessed. Vessel size was noted for appropriate catheter selection and skin was marked with gentle pressure. Patients RIGHT upper extremity was prepped and draped in the usual sterile fashion utilizing chlorhexidine. Ultrasound guidance was used to aid needle placement. An 18 g Endurance Catheter was introduced into the RIGHT Brachial vein under direct ultrasound guidance. Guide wire was easily deployed without resistance. Catheter was threaded over the guide wire without resistance and the entire apparatus was removed intact. Good venous blood return was noted in the catheter. The IV catheter was easily flushed with sterile saline flush. Sterile clave was attached to the end of the catheter and good blood return was again noted. Tourniquet was released. StatLock device and sterile dressing were applied. The patient tolerated the procedure well. Blood Loss: Minimal Complications: None Procedural Ultrasound Guidance: Procedure Date: 05/05/2017 Indication: Poor Vascular Access Attending: Dr. Chavez APC: Luis M Santiago PA-C Artery/Veins Identified: YES Access confirmed in Vein with ultrasound: YES Complications: NONE Patient tolerated procedure: WELL
--- NOTE | 2018-05-06 00:28 | Procedure Note ---
Procedure Note Date of Service May 06, 2018 Procedure: Arterial Line Placement Attending: Dr. Chavez APC: Luis M Santiago PA-C Indication: Monitoring on Pressors Anesthesia: Lidocaine 1% Emergent consent implied secondary to patient's actively declining condition. A time-out was completed verifying correct patient, procedure, site, positioning , and implant(s) or special equipment if applicable. Allens test was performed to ensure adequate perfusion. Patients RIGHT wrist was prepped and draped in the usual sterile fashion. Ultrasound guidance was used to aid needle placement. A 20g Arrow arterial line was introduced into the RIGHT Radial artery. Catheter was threaded, and the needle was removed with appropriate blood return. Good waveform was observed. The patient tolerated the procedure well. Confirmation of placement with ultrasound. Blood Loss: Minimal Complications: None Procedural Ultrasound Guidance: Procedure Date: Indication: Gases, labs Attending: Dr. Chavez APC: Luis M Santiago PA-C Artery Identified: YES Line confirmed in Artery with ultrasound: YES Complications: NONE Patient tolerated procedure: WELL
[2018-05-06 00:54] LABS: iSTAT Arterial Blood Gas HCO3 24 meg/L (19-24); iSTAT Carbon Dioxide 26 mEq/l (24-31); iSTAT FiO2 40 %
[2018-05-06] MEDS: ALBUMIN 25% 100 ML IV SCH ×3 (02:26→04:29)
[2018-05-06] MEDS: IPRATROPIUM BROMIDE NEB SOLN 0.02% 2.5 ML VIAL INH SCH ×6 (03:36→22:15)
[2018-05-06] MEDS: LEVALBUTEROL 1.25MG/0.5ML NEB INH SCH ×6 (03:36→22:15)
[2018-05-06] MEDS: NOREPINEPHRINE BIT INJ 8 MG in DEXTROSE 5% 500 ML IV PRN ×2 (03:39→19:39)
[2018-05-06 04:52] LABS: Hematocrit (blood only) 33.3 % (37-47); Hemoglobin 10.4 g/dL (12.0-16.0); Mean Corpuscular Hgb Conc 31.2 g/dL (32-36); Mean Corpuscular Volume 100.3 fL (80-100); RDW Coefficient of Variation 14.9 % (11.5-14.5); RDW Standard Deviation 54.8 fL (36.4-46.3); Red Blood Count 3.32 M/uL (4.2-5.4); White Blood Count 5.96 K/uL (4.8-10.8)
[2018-05-06 05:06] LABS: INR 1.3 (0.9-1.1); Prothrombin Time 13.3 Seconds (9.0-12.0)
[2018-05-06 05:18] LABS: Basophils # (auto) 0.01 K/uL (0-0.2); Basophils % (auto) 0.2 %; Immature Granulocytes # (auto) 0.01 K/uL (0.00-0.02); Immature Granulocytes % (auto) 0.2 %; Mean Platelet Volume 10.2 fL (7.4-10.4); Monocytes % (auto) 3.4 %; Neutrophils # (auto) 5.44 K/uL (1.4-6.5); Neutrophils % (auto) 91.2 %; Platelet Count 90 K/uL (130-400); RBC Morphology Unremarkable
[2018-05-06 05:28] LABS: BUN Creatinine Ratio 5.7 (10-20); Calcium 7.4 mg/dl (8.5-10.1); Creatinine Clr Calc Pharmacy 8.3 ml/min; Est GFR (Non-African American) 5.1; Magnesium 2.4 mg/dl (1.8-2.4); Potassium 4.6 mmol/L (3.5-5.1)
[2018-05-06] MEDS: HYDROCORTISONE SOD 50 MG in SYRINGE 0 ML IV SCH ×3 (05:41→18:39)
[2018-05-06 05:42] LABS: Estimated Average Glucose 108 mg/dl
[2018-05-06 06:09] LABS: iSTAT Arterial Blood Gas HCO3 24 meg/L (19-24); iSTAT Carbon Dioxide 25 mEq/l (24-31); iSTAT FiO2 60 %
[2018-05-06 06:47] LABS: Toxic Vacuolation 1+
[2018-05-06] MEDS: fentaNYL citrate 100 MCG/2 ML VIAL IV PRN ×3 (07:32→21:26)
--- NOTE | 2018-05-06 07:50 | XRay Report ---
XR chest 1V portable CLINICAL HISTORY: resp failure/pulm edema dyspnea COMPARISON STUDY: 05/05/2018 FINDINGS: The endotracheal tube remains 1.4 cm above the rigoberto. Components of congestive failure trevor carmelita pulmonary edema slightly improved. Slight improvement in visibility of the diaphragms. Diminished right effusion. IMPRESSION: Improving congestive heart failure. The above report was generated using voice recognition software. It may contain grammatical, syntax or spelling errors. Electronically signed by: Martin Ramos M.D. 05/06/2018 7:49 AM
[2018-05-06] MEDS: CHOLECALCIFEROL 1,000 UNITS TAB PO SCH (09:38)
[2018-05-06] MEDS: HEPARIN SOD 5,000 UNIT/0.5 ML VIAL SQ SCH ×2 (09:46→21:25)
[2018-05-06] MEDS: PANTOprazole 40 MG in SYRINGE 0 ML IV SCH (09:49)
[2018-05-06] MEDS: LEVOTHYROXINE SODIUM 100 MCG in SYRINGE 0 ML IV SCH (09:49)
[2018-05-06] MEDS: PIPERACILLIN/TAZOBACTAM 3.375 GM in DEXTROSE 5% 100 ML IV SCH ×2 (09:49→21:24)
[2018-05-06 10:02] LABS: Hepatitis B Surface Antibody Non-Immune
[2018-05-06 10:13] LABS: Hepatitis B Surface Antigen Neg (Neg)
[2018-05-06] MEDS ORDERED: SODIUM CHLORIDE 0.9% 1000ML 1,000 ML IV PRN (10:41)
[2018-05-06] MEDS: ASPIRIN 81 MG ECTAB PO SCH (10:53)
[2018-05-06] MEDS ORDERED: HEPARIN SOD (PORCINE) 1000 UNIT/ML 10 ML VIAL IV SCH (11:00)
[2018-05-06] MEDS ORDERED: EPOETIN ALFA 10,000 UNITS/ML VIAL IV SCH (11:00)
[2018-05-06 11:12] LABS: Amphetamines+Metham, Urine Neg (Neg); Barbiturates, Urine Neg (Neg); Benzodiazepine, Urine Neg (Neg); Cocaine, Urine Neg (Neg); MDMA (Ecstacy), Urine Neg (Neg); Methadone, Urine Neg (Neg); Opiate, Urine Neg (Neg); Phencyclidine, Urine Neg (Neg)
--- NOTE | 2018-05-06 11:14 | Critical Care Progress Note ---
Date of Service May 06, 2018 Assessment & Plan (1) Altered mental status: 52-year-old female was admitted to the ICU on 05 May 2018 for weakness /confusion found to be in acute respiratory and heart failure. DIRECTOR OF FINANCIAL REPORTING: CAM-ICU negative. Initially obtunded, but now responds to commands. CT head non-acute. PMH abuse of opiates and benzos. Patient was ordered fentanyl and Versed by healthcare providers. Will check UDS and gabapentin level. Pulm: Acute respiratory failure (ph 7.06) with hypoxia and hypercapnia. PMH COPD, at home is on 3.5 L NC O2. intubated. On scheduled Xopenex, Atrovent, hydrocortisone. Concern for extensive aspiration and edema vs hemorrhage. - Plan for bronch later today. CVS: Acute on chronic systolic heart failure. Hypotensive, requiring norepi drip. Previously on midodrine. PSH tricuspid and mitral valve repairs. echo noted EF 50-55%, grade II diastolic failure. Paced rhythm. ID: Afebrile, normal WBC. Elevated procalcitonin. Likely aspiration seen on CT chest. empirically started Zosyn and vancomycin. BCx pending. Endo: Admit TSH 155 and PMH hypothyroidism (likely non-compliant with home meds) . Here started on levothyroxine. Admit HbA1c 5.4. Renal/Lytes: ESRD (Nephro = Dr. Hugo as outpatient), normal dialysis MWF. Admit Na 131. GI: See extensive CT a/p findings. Chronic ventral hernia. NPO while intubated. On pantoprazole. Heme: Admit Hb 12.8, down to 10.4 (similar to September 2017), stable. On Procrit. Monitoring. DVT prophy: Heparin subq. Lines: Right arterial line. PIV. Right brachial endurance catheter. Code status: Full code PT/OT: Deferred Disposition: Critically ill. Admitted to ICU. (2) History of drug abuse: (3) Acute respiratory failure with hypoxia and hypercarbia: (4) COPD (chronic obstructive pulmonary disease): (5) Respiratory failure: (6) Aspiration pneumonia: (7) Acute on chronic systolic heart failure: (8) Hypotension: (9) S/P mitral valve repair: (10) S/P placement of cardiac pacemaker: (11) S/P tricuspid valve repair: (12) Hypothyroidism: (13) End-stage renal disease (ESRD): (14) Hyponatremia: (15) Ventral hernia: (16) Anemia: Supervising Physician Co-Signing Physician Notes Dr. Gonzalez was resident physician during care of patient. I separately evaluated patient for woodard portions of the history and the exam. I was present during the critical portion of medical decision making, and I discussed the case with the resident. I generally agree with the findings and plan. I discussed with the patient's son the risks and benefits of central venous access as well as bronchoscopy. Patient's mental status has improved markedly from what it was reportedly in the ED notes. Patient has sepsis secondary to pneumonia also has tracheomalacia with excessive dynamic airway collapse discovered on bronchoscopy. I have personally spent 60 minutes of critical care time in the direct management of this patient. This is a life/limb threatening event. This includes time spent evaluating patient, direct bedside care, chart review, placing orders, interpretation of diagnostic studies, discussion with consultants, patient, and/or family members regarding treatment decisions, as well as other required patient management activities. This time is exclusive of all separately billable procedures, and teaching time and separate from and in addition to any other critical care service time. Subjective Found patient resting comfortably this morning. Intubated, but will squeeze hand and shake her head yes or no in response to questions. Does not appear in acute distress. Physical Exam 2 Vital Signs (Past 24 Hours): Last Vital Signs Temp 37.4 C 05/06/18 07:30 Pulse 81 05/06/18 09:00 Resp 26 H 05/06/18 07:49 BP 117/68 05/06/18 09:00 Pulse Ox 100 05/06/18 09:00 Physical Exam: General Appearance: Awake, alert & oriented, comfortable in general, NAD. CV: +S1S2 RRR, no murmur. Pacemaker. Pulm: Coarse breath sounds throughout. Intubated. Abdomen: +BS, soft, non-tender, non-distended. Positive ventral hernia. Extremities: No pedal edema. Neuro: No gross neuro deficits, though patient remains intubated. Results & Data Laboratory Results 05/06/18 05/06/18 05/06/18 Range/Units Unknown Unknown 10:43 WBC (4.8-10.8) K/uL RBC (4.2-5.4) M/uL Hgb (12.0-16.0) g/dL POC Hgb (12.0-16.0) g/dl Hct (37-47) % POC Hct (37-47) % MCV (80-100) fL MCH (25-34) pg MCHC (32-36) g/dL RDW Std Deviation (36.4-46.3) fL RDW Coeff of Ya (11.5-14.5) % Plt Count (130-400) K/uL MPV (7.4-10.4) fL Immature Gran % (Auto) % Neut % (Auto) % Lymph % (Auto) % [place] % (Auto) % Eos % (Auto) % Baso % (Auto) % Immature Gran # (Auto) (0.00-0.02) K/uL Neut # (Auto) (1.4-6.5) K/uL Lymph # (Auto) (1.2-3.4) K/uL [place] # (Auto) (0.11-0.59) K/uL Eos # (Auto) (0-0.5) K/uL Baso # (Auto) (0-0.2) K/uL Toxic Vacuolation Platelet Estimate (Normal) RBC Morphology PT (9.0-12.0) Seconds INR (0.9-1.1) Sample Site POC pH (7.35-7.45) POC pCO2 (35-46) mmHg POC pO2 (80-95) mmHg POC HCO3 (19-24) tonio/L POC Base Excess (-9-1.8) tonio/L ABG pH (7.35-7.45) ABG pCO2 (35-46) mmHg ABG pO2 (80-95) mm/Hg ABG HCO3 (19-24) mmol/L POC ABG O2 Sat (90-95) % ABG O2 Saturation (90-95) % ABG Base Excess (-9-1.8) mEq/L Jeb Test (Pos) Barometric Pressure mm/Hg Oxygen Given O2 Delivery Device POC O2 Rate Minute Ventilation POC FiO2 % Tidal Volume PEEP POC Sodium (135-144) mEq/L Sodium (136-145) mmol/L POC Potassium (3.3-5.0) mEq/L Potassium (3.5-5.1) mmol/L POC Chloride (101-112) mEq/L Chloride (98-107) mmol/L Carbon Dioxide (21-32) mmol/L POC Total CO2 (24-31) mEq/l Anion Gap (3-11) POC Anion Gap (16-25) mmol/L POC BUN (7-18) mg/dl BUN (7-18) mg/dl Creatinine (0.6-1.2) mg/dl POC Creatinine (0.6-1.3) mg/dl Est Cr Clr Drug Dosing Est GFR ( Amer) Est GFR (Non-Af Amer) BUN/Creatinine Ratio (10-20) Glucose (70-99) mg/dl POC Glucose (70-99) POC Glucose (other) (70-99) mg/dl Estimat Average Glucose mg/dl Hemoglobin A1c (4.5-5.6) % Lactate (0.4-2.0) mmol/L Calcium (8.5-10.1) mg/dl POC Ioniz Calcium Chivo (1.12-1.32) mmol/l Phosphorus (2.5-4.9) mg/dl Magnesium (1.8-2.4) mg/dl Total Bilirubin (0.2-1) mg/dl AST (15-37) U/L ALT (12-78) U/L Alkaline Phosphatase (45-117) U/L Troponin I (0-0.045) ng/ml Total Protein (6.4-8.2) gm/dl Albumin (3.4-5.0) gm/dl Globulin (2.5-4.0) gm/dl Albumin/Globulin Ratio (0.9-2) Procalcitonin (0-0.5) ng/ml TSH (0.300-4.500) uIu/ml Free T4 (0.8-1.6) ng/dl Free T3 (2.3-4.2) pg/ml Random Cortisol mcg/dl Urine Color Pending Urine Appearance Pending Urine pH Pending Ur Specific [place] Pending Urine Protein Pending Urine Glucose (UA) Pending Urine Ketones Pending Urine Blood Pending Urine Nitrite Pending Urine Bilirubin Pending Urine Urobilinogen Pending Ur Leukocyte Esterase Pending Nasal Screen MRSA (PCR) (Negative) Salicylates (2.8-20) mg/dl Urine Opiates Screen Pending Ur Methadone, Qual Pending Acetaminophen (10-30) ug/ml Urine Barbiturates Pending Gabapentin Pending Ur Phencyclidine (PCP) Pending U Amphetamin/Meth Scrn Pending MDMA (Ecstasy) Screen Pending U Benzodiazepines Scrn Pending Ur Cocaine Metabolite Pending U Marijuana (THC) Screen Pending Ethyl Alcohol mg/dL (0-3) mg/dl Hep Bs Antigen (Neg) Hep Bs Antibody Hep Bs Antibody, Quant (>or=10mIU/mL Immune) mIU/mL 05/06/18 05/06/18 05/06/18 Range/Units 05:57 04:43 04:41 WBC (4.8-10.8) K/uL RBC (4.2-5.4) M/uL Hgb (12.0-16.0) g/dL POC Hgb (12.0-16.0) g/dl Hct (37-47) % POC Hct (37-47) % MCV (80-100) fL MCH (25-34) pg MCHC (32-36) g/dL RDW Std Deviation (36.4-46.3) fL RDW Coeff of Ya (11.5-14.5) % Plt Count (130-400) K/uL MPV (7.4-10.4) fL Immature Gran % (Auto) % Neut % (Auto) % Lymph % (Auto) % [place] % (Auto) % Eos % (Auto) % Baso % (Auto) % Immature Gran # (Auto) (0.00-0.02) K/uL Neut # (Auto) (1.4-6.5) K/uL Lymph # (Auto) (1.2-3.4) K/uL [place] # (Auto) (0.11-0.59) K/uL Eos # (Auto) (0-0.5) K/uL Baso # (Auto) (0-0.2) K/uL Toxic Vacuolation Platelet Estimate (Normal) RBC Morphology PT (9.0-12.0) Seconds INR (0.9-1.1) Sample Site Art Line POC pH 7.26 L (7.35-7.45) POC pCO2 53 H (35-46) mmHg POC pO2 79 L (80-95) mmHg POC HCO3 24 (19-24) tonio/L POC Base Excess -3.0 (-9-1.8) tonio/L ABG pH (7.35-7.45) ABG pCO2 (35-46) mmHg ABG pO2 (80-95) mm/Hg ABG HCO3 (19-24) mmol/L POC ABG O2 Sat 93.0 (90-95) % ABG O2 Saturation (90-95) % ABG Base Excess (-9-1.8) mEq/L Jeb Test NA (Pos) Barometric Pressure mm/Hg Oxygen Given O2 Delivery Device Ventilator POC O2 Rate 26 Minute Ventilation 10.4 POC FiO2 60 % Tidal Volume 450 PEEP 5 POC Sodium (135-144) mEq/L Sodium (136-145) mmol/L POC Potassium (3.3-5.0) mEq/L Potassium (3.5-5.1) mmol/L POC Chloride (101-112) mEq/L Chloride (98-107) mmol/L Carbon Dioxide (21-32) mmol/L POC Total CO2 25 (24-31) mEq/l Anion Gap (3-11) POC Anion Gap (16-25) mmol/L POC BUN (7-18) mg/dl BUN (7-18) mg/dl Creatinine (0.6-1.2) mg/dl POC Creatinine (0.6-1.3) mg/dl Est Cr Clr Drug Dosing Est GFR ( Amer) Est GFR (Non-Af Amer) BUN/Creatinine Ratio (10-20) Glucose (70-99) mg/dl POC Glucose (70-99) POC Glucose (other) 103 H (70-99) mg/dl Estimat Average Glucose mg/dl Hemoglobin A1c (4.5-5.6) % Lactate (0.4-2.0) mmol/L Calcium (8.5-10.1) mg/dl POC Ioniz Calcium Chivo (1.12-1.32) mmol/l Phosphorus (2.5-4.9) mg/dl Magnesium (1.8-2.4) mg/dl Total Bilirubin (0.2-1) mg/dl AST (15-37) U/L ALT (12-78) U/L Alkaline Phosphatase (45-117) U/L Troponin I (0-0.045) ng/ml Total Protein (6.4-8.2) gm/dl Albumin (3.4-5.0) gm/dl Globulin (2.5-4.0) gm/dl Albumin/Globulin Ratio (0.9-2) Procalcitonin (0-0.5) ng/ml TSH (0.300-4.500) uIu/ml Free T4 (0.8-1.6) ng/dl Free T3 (2.3-4.2) pg/ml Random Cortisol mcg/dl Urine Color Urine Appearance Urine pH Ur Specific [place] Urine Protein Urine Glucose (UA) Urine Ketones Urine Blood Urine Nitrite Urine Bilirubin Urine Urobilinogen Ur Leukocyte Esterase Nasal Screen MRSA (PCR) (Negative) Salicylates (2.8-20) mg/dl Urine Opiates Screen Ur Methadone, Qual Acetaminophen (10-30) ug/ml Urine Barbiturates Gabapentin Ur Phencyclidine (PCP) U Amphetamin/Meth Scrn MDMA (Ecstasy) Screen U Benzodiazepines Scrn Ur Cocaine Metabolite U Marijuana (THC) Screen Ethyl Alcohol mg/dL (0-3) mg/dl Hep Bs Antigen Neg (Neg) Hep Bs Antibody Non-Immune Hep Bs Antibody, Quant 4.77 L (>or=10mIU/mL Immune) mIU/mL 05/06/18 05/06/18 05/06/18 Range/Units 04:41 04:41 04:41 WBC (4.8-10.8) K/uL RBC (4.2-5.4) M/uL Hgb (12.0-16.0) g/dL POC Hgb (12.0-16.0) g/dl Hct (37-47) % POC Hct (37-47) % MCV (80-100) fL MCH (25-34) pg MCHC (32-36) g/dL RDW Std Deviation (36.4-46.3) fL RDW Coeff of Ya (11.5-14.5) % Plt Count (130-400) K/uL MPV (7.4-10.4) fL Immature Gran % (Auto) % Neut % (Auto) % Lymph % (Auto) % [place] % (Auto) % Eos % (Auto) % Baso % (Auto) % Immature Gran # (Auto) (0.00-0.02) K/uL Neut # (Auto) (1.4-6.5) K/uL Lymph # (Auto) (1.2-3.4) K/uL [place] # (Auto) (0.11-0.59) K/uL Eos # (Auto) (0-0.5) K/uL Baso # (Auto) (0-0.2) K/uL Toxic Vacuolation Platelet Estimate (Normal) RBC Morphology PT 13.3 H (9.0-12.0) Seconds INR 1.3 H (0.9-1.1) Sample Site POC pH (7.35-7.45) POC pCO2 (35-46) mmHg POC pO2 (80-95) mmHg POC HCO3 (19-24) tonio/L POC Base Excess (-9-1.8) tonio/L ABG pH (7.35-7.45) ABG pCO2 (35-46) mmHg ABG pO2 (80-95) mm/Hg ABG HCO3 (19-24) mmol/L POC ABG O2 Sat (90-95) % ABG O2 Saturation (90-95) % ABG Base Excess (-9-1.8) mEq/L Jeb Test (Pos) Barometric Pressure mm/Hg Oxygen Given O2 Delivery Device POC O2 Rate Minute Ventilation POC FiO2 % Tidal Volume PEEP POC Sodium (135-144) mEq/L Sodium (136-145) mmol/L POC Potassium (3.3-5.0) mEq/L Potassium (3.5-5.1) mmol/L POC Chloride (101-112) mEq/L Chloride (98-107) mmol/L Carbon Dioxide (21-32) mmol/L POC Total CO2 (24-31) mEq/l Anion Gap (3-11) POC Anion Gap (16-25) mmol/L POC BUN (7-18) mg/dl BUN (7-18) mg/dl Creatinine (0.6-1.2) mg/dl POC Creatinine (0.6-1.3) mg/dl Est Cr Clr Drug Dosing Est GFR ( Amer) Est GFR (Non-Af Amer) BUN/Creatinine Ratio (10-20) Glucose (70-99) mg/dl POC Glucose (70-99) POC Glucose (other) (70-99) mg/dl Estimat Average Glucose 108 mg/dl Hemoglobin A1c 5.4 (4.5-5.6) % Lactate (0.4-2.0) mmol/L Calcium (8.5-10.1) mg/dl POC Ioniz Calcium Chivo (1.12-1.32) mmol/l Phosphorus (2.5-4.9) mg/dl Magnesium (1.8-2.4) mg/dl Total Bilirubin (0.2-1) mg/dl AST (15-37) U/L ALT (12-78) U/L Alkaline Phosphatase (45-117) U/L Troponin I (0-0.045) ng/ml Total Protein (6.4-8.2) gm/dl Albumin (3.4-5.0) gm/dl Globulin (2.5-4.0) gm/dl Albumin/Globulin Ratio (0.9-2) Procalcitonin 1.95 H (0-0.5) ng/ml TSH (0.300-4.500) uIu/ml Free T4 (0.8-1.6) ng/dl Free T3 (2.3-4.2) pg/ml Random Cortisol mcg/dl Urine Color Urine Appearance Urine pH Ur Specific [place] Urine Protein Urine Glucose (UA) Urine Ketones Urine Blood Urine Nitrite Urine Bilirubin Urine Urobilinogen Ur Leukocyte Esterase Nasal Screen MRSA (PCR) (Negative) Salicylates (2.8-20) mg/dl Urine Opiates Screen Ur Methadone, Qual Acetaminophen (10-30) ug/ml Urine Barbiturates Gabapentin Ur Phencyclidine (PCP) U Amphetamin/Meth Scrn MDMA (Ecstasy) Screen U Benzodiazepines Scrn Ur Cocaine Metabolite U Marijuana (THC) Screen Ethyl Alcohol mg/dL (0-3) mg/dl Hep Bs Antigen (Neg) Hep Bs Antibody Hep Bs Antibody, Quant (>or=10mIU/mL Immune) mIU/mL 05/06/18 05/06/18 05/06/18 Range/Units 04:41 04:41 00:37 WBC 5.96 (4.8-10.8) K/uL RBC 3.32 L (4.2-5.4) M/uL Hgb 10.4 L (12.0-16.0) g/dL POC Hgb (12.0-16.0) g/dl Hct 33.3 L (37-47) % POC Hct (37-47) % MCV 100.3 H (80-100) fL MCH 31.3 (25-34) pg MCHC 31.2 L (32-36) g/dL RDW Std Deviation 54.8 H (36.4-46.3) fL RDW Coeff of Ya 14.9 H (11.5-14.5) % Plt Count 90 L (130-400) K/uL MPV 10.2 (7.4-10.4) fL Immature Gran % (Auto) 0.2 % Neut % (Auto) 91.2 % Lymph % (Auto) 5.0 % [place] % (Auto) 3.4 % Eos % (Auto) 0.0 % Baso % (Auto) 0.2 % Immature Gran # (Auto) 0.01 (0.00-0.02) K/uL Neut # (Auto) 5.44 (1.4-6.5) K/uL Lymph # (Auto) 0.30 L (1.2-3.4) K/uL [place] # (Auto) 0.20 (0.11-0.59) K/uL Eos # (Auto) 0.00 (0-0.5) K/uL Baso # (Auto) 0.01 (0-0.2) K/uL Toxic Vacuolation 1+ Platelet Estimate Decreased (Normal) RBC Morphology Unremarkable PT (9.0-12.0) Seconds INR (0.9-1.1) Sample Site Art Line POC pH 7.24 L (7.35-7.45) POC pCO2 57 H (35-46) mmHg POC pO2 60 L (80-95) mmHg POC HCO3 24 (19-24) tonio/L POC Base Excess -3.0 (-9-1.8) tonio/L ABG pH (7.35-7.45) ABG pCO2 (35-46) mmHg ABG pO2 (80-95) mm/Hg ABG HCO3 (19-24) mmol/L POC ABG O2 Sat 84.0 L (90-95) % ABG O2 Saturation (90-95) % ABG Base Excess (-9-1.8) mEq/L Jeb Test NA (Pos) Barometric Pressure mm/Hg Oxygen Given O2 Delivery Device Ventilator POC O2 Rate 26 Minute Ventilation 10.2 POC FiO2 40 % Tidal Volume 450 PEEP 5 POC Sodium (135-144) mEq/L Sodium 132 L (136-145) mmol/L POC Potassium (3.3-5.0) mEq/L Potassium 4.6 (3.5-5.1) mmol/L POC Chloride (101-112) mEq/L Chloride 98 (98-107) mmol/L Carbon Dioxide 25 (21-32) mmol/L POC Total CO2 26 (24-31) mEq/l Anion Gap 9.0 (3-11) POC Anion Gap (16-25) mmol/L POC BUN (7-18) mg/dl BUN 46 H (7-18) mg/dl Creatinine 8.08 H* (0.6-1.2) mg/dl POC Creatinine (0.6-1.3) mg/dl Est Cr Clr Drug Dosing 8.3 Est GFR ( Amer) 6.0 Est GFR (Non-Af Amer) 5.1 BUN/Creatinine Ratio 5.7 L (10-20) Glucose 104 H (70-99) mg/dl POC Glucose (70-99) POC Glucose (other) (70-99) mg/dl Estimat Average Glucose mg/dl Hemoglobin A1c (4.5-5.6) % Lactate (0.4-2.0) mmol/L Calcium 7.4 L (8.5-10.1) mg/dl POC Ioniz Calcium Chivo (1.12-1.32) mmol/l Phosphorus 8.0 H (2.5-4.9) mg/dl Magnesium 2.4 (1.8-2.4) mg/dl Total Bilirubin (0.2-1) mg/dl AST (15-37) U/L ALT (12-78) U/L Alkaline Phosphatase (45-117) U/L Troponin I (0-0.045) ng/ml Total Protein (6.4-8.2) gm/dl Albumin (3.4-5.0) gm/dl Globulin (2.5-4.0) gm/dl Albumin/Globulin Ratio (0.9-2) Procalcitonin (0-0.5) ng/ml TSH (0.300-4.500) uIu/ml Free T4 (0.8-1.6) ng/dl Free T3 (2.3-4.2) pg/ml Random Cortisol mcg/dl Urine Color Urine Appearance Urine pH Ur Specific [place] Urine Protein Urine Glucose (UA) Urine Ketones Urine Blood Urine Nitrite Urine Bilirubin Urine Urobilinogen Ur Leukocyte Esterase Nasal Screen MRSA (PCR) (Negative) Salicylates (2.8-20) mg/dl Urine Opiates Screen Ur Methadone, Qual Acetaminophen (10-30) ug/ml Urine Barbiturates Gabapentin Ur Phencyclidine (PCP) U Amphetamin/Meth Scrn MDMA (Ecstasy) Screen U Benzodiazepines Scrn Ur Cocaine Metabolite U Marijuana (THC) Screen Ethyl Alcohol mg/dL (0-3) mg/dl Hep Bs Antigen (Neg) Hep Bs Antibody Hep Bs Antibody, Quant (>or=10mIU/mL Immune) mIU/mL 05/05/18 05/05/18 05/05/18 Range/Units 23:09 22:14 21:37 WBC (4.8-10.8) K/uL RBC (4.2-5.4) M/uL Hgb (12.0-16.0) g/dL POC Hgb 12.2 (12.0-16.0) g/dl Hct (37-47) % POC Hct 36 L (37-47) % MCV (80-100) fL MCH (25-34) pg MCHC (32-36) g/dL RDW Std Deviation (36.4-46.3) fL RDW Coeff of Ya (11.5-14.5) % Plt Count (130-400) K/uL MPV (7.4-10.4) fL Immature Gran % (Auto) % Neut % (Auto) % Lymph % (Auto) % [place] % (Auto) % Eos % (Auto) % Baso % (Auto) % Immature Gran # (Auto) (0.00-0.02) K/uL Neut # (Auto) (1.4-6.5) K/uL Lymph # (Auto) (1.2-3.4) K/uL [place] # (Auto) (0.11-0.59) K/uL Eos # (Auto) (0-0.5) K/uL Baso # (Auto) (0-0.2) K/uL Toxic Vacuolation Platelet Estimate (Normal) RBC Morphology PT (9.0-12.0) Seconds INR (0.9-1.1) Sample Site POC pH 7.25 L (7.35-7.45) POC pCO2 56 H (35-46) mmHg POC pO2 53 L (80-95) mmHg POC HCO3 24 (19-24) tonio/L POC Base Excess -3.0 (-9-1.8) tonio/L ABG pH (7.35-7.45) ABG pCO2 (35-46) mmHg ABG pO2 (80-95) mm/Hg ABG HCO3 (19-24) mmol/L POC ABG O2 Sat (90-95) % ABG O2 Saturation (90-95) % ABG Base Excess (-9-1.8) mEq/L Jeb Test (Pos) Barometric Pressure mm/Hg Oxygen Given O2 Delivery Device POC O2 Rate Minute Ventilation POC FiO2 % Tidal Volume PEEP POC Sodium 134 L (135-144) mEq/L Sodium (136-145) mmol/L POC Potassium 4.6 (3.3-5.0) mEq/L Potassium (3.5-5.1) mmol/L POC Chloride (101-112) mEq/L Chloride (98-107) mmol/L Carbon Dioxide (21-32) mmol/L POC Total CO2 26 (24-31) mEq/l Anion Gap (3-11) POC Anion Gap (16-25) mmol/L POC BUN (7-18) mg/dl BUN (7-18) mg/dl Creatinine (0.6-1.2) mg/dl POC Creatinine (0.6-1.3) mg/dl Est Cr Clr Drug Dosing Est GFR ( Amer) Est GFR (Non-Af Amer) BUN/Creatinine Ratio (10-20) Glucose (70-99) mg/dl POC Glucose (70-99) POC Glucose (other) (70-99) mg/dl Estimat Average Glucose mg/dl Hemoglobin A1c (4.5-5.6) % Lactate 0.6 (0.4-2.0) mmol/L Calcium (8.5-10.1) mg/dl POC Ioniz Calcium Chivo (1.12-1.32) mmol/l Phosphorus (2.5-4.9) mg/dl Magnesium (1.8-2.4) mg/dl Total Bilirubin (0.2-1) mg/dl AST (15-37) U/L ALT (12-78) U/L Alkaline Phosphatase (45-117) U/L Troponin I (0-0.045) ng/ml Total Protein (6.4-8.2) gm/dl Albumin (3.4-5.0) gm/dl Globulin (2.5-4.0) gm/dl Albumin/Globulin Ratio (0.9-2) Procalcitonin (0-0.5) ng/ml TSH (0.300-4.500) uIu/ml Free T4 (0.8-1.6) ng/dl Free T3 (2.3-4.2) pg/ml Random Cortisol mcg/dl Urine Color Urine Appearance Urine pH Ur Specific [place] Urine Protein Urine Glucose (UA) Urine Ketones Urine Blood Urine Nitrite Urine Bilirubin Urine Urobilinogen Ur Leukocyte Esterase Nasal Screen MRSA (PCR) Negative (Negative) Salicylates (2.8-20) mg/dl Urine Opiates Screen Ur Methadone, Qual Acetaminophen (10-30) ug/ml Urine Barbiturates Gabapentin Ur Phencyclidine (PCP) U Amphetamin/Meth Scrn MDMA (Ecstasy) Screen U Benzodiazepines Scrn Ur Cocaine Metabolite U Marijuana (THC) Screen Ethyl Alcohol mg/dL (0-3) mg/dl Hep Bs Antigen (Neg) Hep Bs Antibody Hep Bs Antibody, Quant (>or=10mIU/mL Immune) mIU/mL 05/05/18 05/05/18 05/05/18 Range/Units 19:36 17:27 17:06 WBC (4.8-10.8) K/uL RBC (4.2-5.4) M/uL Hgb (12.0-16.0) g/dL POC Hgb (12.0-16.0) g/dl Hct (37-47) % POC Hct (37-47) % MCV (80-100) fL MCH (25-34) pg MCHC (32-36) g/dL RDW Std Deviation (36.4-46.3) fL RDW Coeff of Ya (11.5-14.5) % Plt Count (130-400) K/uL MPV (7.4-10.4) fL Immature Gran % (Auto) % Neut % (Auto) % Lymph % (Auto) % [place] % (Auto) % Eos % (Auto) % Baso % (Auto) % Immature Gran # (Auto) (0.00-0.02) K/uL Neut # (Auto) (1.4-6.5) K/uL Lymph # (Auto) (1.2-3.4) K/uL [place] # (Auto) (0.11-0.59) K/uL Eos # (Auto) (0-0.5) K/uL Baso # (Auto) (0-0.2) K/uL Toxic Vacuolation Platelet Estimate (Normal) RBC Morphology PT (9.0-12.0) Seconds INR (0.9-1.1) Sample Site POC pH 7.06 L* (7.35-7.45) POC pCO2 102 H (35-46) mmHg POC pO2 110 H (80-95) mmHg POC HCO3 29 H (19-24) tonio/L POC Base Excess -1.0 (-9-1.8) tonio/L ABG pH 7.18 L* (7.35-7.45) ABG pCO2 76 H (35-46) mmHg ABG pO2 64 L (80-95) mm/Hg ABG HCO3 28 H (19-24) mmol/L POC ABG O2 Sat 95.0 (90-95) % ABG O2 Saturation 88.6 L (90-95) % ABG Base Excess -2.2 (-9-1.8) mEq/L Jeb Test Unk (Pos) Barometric Pressure 730.1 mm/Hg Oxygen Given 7L O2 Delivery Device POC O2 Rate Minute Ventilation POC FiO2 % Tidal Volume PEEP POC Sodium (135-144) mEq/L Sodium (136-145) mmol/L POC Potassium (3.3-5.0) mEq/L Potassium (3.5-5.1) mmol/L POC Chloride (101-112) mEq/L Chloride (98-107) mmol/L Carbon Dioxide (21-32) mmol/L POC Total CO2 32 H (24-31) mEq/l Anion Gap (3-11) POC Anion Gap (16-25) mmol/L POC BUN (7-18) mg/dl BUN (7-18) mg/dl Creatinine (0.6-1.2) mg/dl POC Creatinine (0.6-1.3) mg/dl Est Cr Clr Drug Dosing Est GFR ( Amer) Est GFR (Non-Af Amer) BUN/Creatinine Ratio (10-20) Glucose (70-99) mg/dl POC Glucose (70-99) POC Glucose (other) (70-99) mg/dl Estimat Average Glucose mg/dl Hemoglobin A1c (4.5-5.6) % Lactate (0.4-2.0) mmol/L Calcium (8.5-10.1) mg/dl POC Ioniz Calcium Chivo (1.12-1.32) mmol/l Phosphorus (2.5-4.9) mg/dl Magnesium (1.8-2.4) mg/dl Total Bilirubin (0.2-1) mg/dl AST (15-37) U/L ALT (12-78) U/L Alkaline Phosphatase (45-117) U/L Troponin I (0-0.045) ng/ml Total Protein (6.4-8.2) gm/dl Albumin (3.4-5.0) gm/dl Globulin (2.5-4.0) gm/dl Albumin/Globulin Ratio (0.9-2) Procalcitonin (0-0.5) ng/ml TSH (0.300-4.500) uIu/ml Free T4 (0.8-1.6) ng/dl Free T3 1.03 L (2.3-4.2) pg/ml Random Cortisol 29.45 mcg/dl Urine Color Urine Appearance Urine pH Ur Specific [place] Urine Protein Urine Glucose (UA) Urine Ketones Urine Blood Urine Nitrite Urine Bilirubin Urine Urobilinogen Ur Leukocyte Esterase Nasal Screen MRSA (PCR) (Negative) Salicylates (2.8-20) mg/dl Urine Opiates Screen Ur Methadone, Qual Acetaminophen (10-30) ug/ml Urine Barbiturates Gabapentin Ur Phencyclidine (PCP) U Amphetamin/Meth Scrn MDMA (Ecstasy) Screen U Benzodiazepines Scrn Ur Cocaine Metabolite U Marijuana (THC) Screen Ethyl Alcohol mg/dL (0-3) mg/dl Hep Bs Antigen (Neg) Hep Bs Antibody Hep Bs Antibody, Quant (>or=10mIU/mL Immune) mIU/mL 05/05/18 05/05/18 05/05/18 Range/Units 17:06 16:46 16:43 WBC (4.8-10.8) K/uL RBC (4.2-5.4) M/uL Hgb (12.0-16.0) g/dL POC Hgb 16.0 (12.0-16.0) g/dl Hct (37-47) % POC Hct 47 (37-47) % MCV (80-100) fL MCH (25-34) pg MCHC (32-36) g/dL RDW Std Deviation (36.4-46.3) fL RDW Coeff of Ya (11.5-14.5) % Plt Count (130-400) K/uL MPV (7.4-10.4) fL Immature Gran % (Auto) % Neut % (Auto) % Lymph % (Auto) % [place] % (Auto) % Eos % (Auto) % Baso % (Auto) % Immature Gran # (Auto) (0.00-0.02) K/uL Neut # (Auto) (1.4-6.5) K/uL Lymph # (Auto) (1.2-3.4) K/uL [place] # (Auto) (0.11-0.59) K/uL Eos # (Auto) (0-0.5) K/uL Baso # (Auto) (0-0.2) K/uL Toxic Vacuolation Platelet Estimate (Normal) RBC Morphology PT (9.0-12.0) Seconds INR (0.9-1.1) Sample Site POC pH (7.35-7.45) POC pCO2 (35-46) mmHg POC pO2 (80-95) mmHg POC HCO3 (19-24) tonio/L POC Base Excess (-9-1.8) tonio/L ABG pH (7.35-7.45) ABG pCO2 (35-46) mmHg ABG pO2 (80-95) mm/Hg ABG HCO3 (19-24) mmol/L POC ABG O2 Sat (90-95) % ABG O2 Saturation (90-95) % ABG Base Excess (-9-1.8) mEq/L Jeb Test (Pos) Barometric Pressure mm/Hg Oxygen Given O2 Delivery Device POC O2 Rate Minute Ventilation POC FiO2 % Tidal Volume PEEP POC Sodium 133 L (135-144) mEq/L Sodium (136-145) mmol/L POC Potassium 5.0 (3.3-5.0) mEq/L Potassium (3.5-5.1) mmol/L POC Chloride 94 L (101-112) mEq/L Chloride (98-107) mmol/L Carbon Dioxide (21-32) mmol/L POC Total CO2 33 H (24-31) mEq/l Anion Gap (3-11) POC Anion Gap 13.0 L (16-25) mmol/L POC BUN 43 H (7-18) mg/dl BUN (7-18) mg/dl Creatinine (0.6-1.2) mg/dl POC Creatinine 6.9 H* (0.6-1.3) mg/dl Est Cr Clr Drug Dosing Est GFR ( Amer) Est GFR (Non-Af Amer) BUN/Creatinine Ratio (10-20) Glucose (70-99) mg/dl POC Glucose 109 H (70-99) POC Glucose (other) 102 H (70-99) mg/dl Estimat Average Glucose mg/dl Hemoglobin A1c (4.5-5.6) % Lactate (0.4-2.0) mmol/L Calcium (8.5-10.1) mg/dl POC Ioniz Calcium Chivo 1.00 L (1.12-1.32) mmol/l Phosphorus (2.5-4.9) mg/dl Magnesium (1.8-2.4) mg/dl Total Bilirubin (0.2-1) mg/dl AST (15-37) U/L ALT (12-78) U/L Alkaline Phosphatase (45-117) U/L Troponin I (0-0.045) ng/ml Total Protein (6.4-8.2) gm/dl Albumin (3.4-5.0) gm/dl Globulin (2.5-4.0) gm/dl Albumin/Globulin Ratio (0.9-2) Procalcitonin (0-0.5) ng/ml TSH (0.300-4.500) uIu/ml Free T4 (0.8-1.6) ng/dl Free T3 (2.3-4.2) pg/ml Random Cortisol mcg/dl Urine Color Urine Appearance Urine pH Ur Specific [place] Urine Protein Urine Glucose (UA) Urine Ketones Urine Blood Urine Nitrite Urine Bilirubin Urine Urobilinogen Ur Leukocyte Esterase Nasal Screen MRSA (PCR) (Negative) Salicylates (2.8-20) mg/dl Urine Opiates Screen Ur Methadone, Qual Acetaminophen (10-30) ug/ml Urine Barbiturates Gabapentin Ur Phencyclidine (PCP) U Amphetamin/Meth Scrn MDMA (Ecstasy) Screen U Benzodiazepines Scrn Ur Cocaine Metabolite U Marijuana (THC) Screen Ethyl Alcohol mg/dL < 3.0 (0-3) mg/dl Hep Bs Antigen (Neg) Hep Bs Antibody Hep Bs Antibody, Quant (>or=10mIU/mL Immune) mIU/mL 05/05/18 05/05/18 05/05/18 Range/Units 16:40 16:40 16:40 WBC (4.8-10.8) K/uL RBC (4.2-5.4) M/uL Hgb (12.0-16.0) g/dL POC Hgb (12.0-16.0) g/dl Hct (37-47) % POC Hct (37-47) % MCV (80-100) fL MCH (25-34) pg MCHC (32-36) g/dL RDW Std Deviation (36.4-46.3) fL RDW Coeff of Ya (11.5-14.5) % Plt Count (130-400) K/uL MPV (7.4-10.4) fL Immature Gran % (Auto) % Neut % (Auto) % Lymph % (Auto) % [place] % (Auto) % Eos % (Auto) % Baso % (Auto) % Immature Gran # (Auto) (0.00-0.02) K/uL Neut # (Auto) (1.4-6.5) K/uL Lymph # (Auto) (1.2-3.4) K/uL [place] # (Auto) (0.11-0.59) K/uL Eos # (Auto) (0-0.5) K/uL Baso # (Auto) (0-0.2) K/uL Toxic Vacuolation Platelet Estimate (Normal) RBC Morphology PT (9.0-12.0) Seconds INR (0.9-1.1) Sample Site POC pH (7.35-7.45) POC pCO2 (35-46) mmHg POC pO2 (80-95) mmHg POC HCO3 (19-24) tonio/L POC Base Excess (-9-1.8) tonio/L ABG pH (7.35-7.45) ABG pCO2 (35-46) mmHg ABG pO2 (80-95) mm/Hg ABG HCO3 (19-24) mmol/L POC ABG O2 Sat (90-95) % ABG O2 Saturation (90-95) % ABG Base Excess (-9-1.8) mEq/L Jeb Test (Pos) Barometric Pressure mm/Hg Oxygen Given O2 Delivery Device POC O2 Rate Minute Ventilation POC FiO2 % Tidal Volume PEEP POC Sodium (135-144) mEq/L Sodium 131 L (136-145) mmol/L POC Potassium (3.3-5.0) mEq/L Potassium 4.8 (3.5-5.1) mmol/L POC Chloride (101-112) mEq/L Chloride 90 L (98-107) mmol/L Carbon Dioxide 30 (21-32) mmol/L POC Total CO2 (24-31) mEq/l Anion Gap 10.0 (3-11) POC Anion Gap (16-25) mmol/L POC BUN (7-18) mg/dl BUN 38 H (7-18) mg/dl Creatinine 8.13 H* (0.6-1.2) mg/dl POC Creatinine (0.6-1.3) mg/dl Est Cr Clr Drug Dosing Not Reportable Est GFR ( Amer) 5.9 Est GFR (Non-Af Amer) 5.1 BUN/Creatinine Ratio 4.7 L (10-20) Glucose 104 H (70-99) mg/dl POC Glucose (70-99) POC Glucose (other) (70-99) mg/dl Estimat Average Glucose mg/dl Hemoglobin A1c (4.5-5.6) % Lactate (0.4-2.0) mmol/L Calcium 8.1 L (8.5-10.1) mg/dl POC Ioniz Calcium Chivo (1.12-1.32) mmol/l Phosphorus (2.5-4.9) mg/dl Magnesium (1.8-2.4) mg/dl Total Bilirubin 0.3 (0.2-1) mg/dl AST 29 (15-37) U/L ALT 18 (12-78) U/L Alkaline Phosphatase 273 H (45-117) U/L Troponin I < 0.015 (0-0.045) ng/ml Total Protein 8.7 H (6.4-8.2) gm/dl Albumin 3.6 (3.4-5.0) gm/dl Globulin 5.1 H (2.5-4.0) gm/dl Albumin/Globulin Ratio 0.7 L (0.9-2) Procalcitonin (0-0.5) ng/ml TSH 155.000 H (0.300-4.500) uIu/ml Free T4 0.53 L (0.8-1.6) ng/dl Free T3 (2.3-4.2) pg/ml Random Cortisol mcg/dl Urine Color Urine Appearance Urine pH Ur Specific [place] Urine Protein Urine Glucose (UA) Urine Ketones Urine Blood Urine Nitrite Urine Bilirubin Urine Urobilinogen Ur Leukocyte Esterase Nasal Screen MRSA (PCR) (Negative) Salicylates 2.0 L (2.8-20) mg/dl Urine Opiates Screen Ur Methadone, Qual Acetaminophen < 2 L (10-30) ug/ml Urine Barbiturates Gabapentin Ur Phencyclidine (PCP) U Amphetamin/Meth Scrn MDMA (Ecstasy) Screen U Benzodiazepines Scrn Ur Cocaine Metabolite U Marijuana (THC) Screen Ethyl Alcohol mg/dL (0-3) mg/dl Hep Bs Antigen (Neg) Hep Bs Antibody Hep Bs Antibody, Quant (>or=10mIU/mL Immune) mIU/mL 05/05/18 Range/Units 16:40 WBC 7.09 (4.8-10.8) K/uL RBC 4.00 L (4.2-5.4) M/uL Hgb 12.8 (12.0-16.0) g/dL POC Hgb (12.0-16.0) g/dl Hct 41.6 (37-47) % POC Hct (37-47) % MCV 104.0 H (80-100) fL MCH 32.0 (25-34) pg MCHC 30.8 L (32-36) g/dL RDW Std Deviation 57.3 H (36.4-46.3) fL RDW Coeff of Ya 14.9 H (11.5-14.5) % Plt Count 117 L (130-400) K/uL MPV 10.9 H (7.4-10.4) fL Immature Gran % (Auto) 0.3 % Neut % (Auto) 88.7 % Lymph % (Auto) 5.9 % [place] % (Auto) 4.7 % Eos % (Auto) 0.1 % Baso % (Auto) 0.3 % Immature Gran # (Auto) 0.02 (0.00-0.02) K/uL Neut # (Auto) 6.29 (1.4-6.5) K/uL Lymph # (Auto) 0.42 L (1.2-3.4) K/uL [place] # (Auto) 0.33 (0.11-0.59) K/uL Eos # (Auto) 0.01 (0-0.5) K/uL Baso # (Auto) 0.02 (0-0.2) K/uL Toxic Vacuolation Platelet Estimate (Normal) RBC Morphology PT (9.0-12.0) Seconds INR (0.9-1.1) Sample Site POC pH (7.35-7.45) POC pCO2 (35-46) mmHg POC pO2 (80-95) mmHg POC HCO3 (19-24) tonio/L POC Base Excess (-9-1.8) tonio/L ABG pH (7.35-7.45) ABG pCO2 (35-46) mmHg ABG pO2 (80-95) mm/Hg ABG HCO3 (19-24) mmol/L POC ABG O2 Sat (90-95) % ABG O2 Saturation (90-95) % ABG Base Excess (-9-1.8) mEq/L Jeb Test (Pos) Barometric Pressure mm/Hg Oxygen Given O2 Delivery Device POC O2 Rate Minute Ventilation POC FiO2 % Tidal Volume PEEP POC Sodium (135-144) mEq/L Sodium (136-145) mmol/L POC Potassium (3.3-5.0) mEq/L Potassium (3.5-5.1) mmol/L POC Chloride (101-112) mEq/L Chloride (98-107) mmol/L Carbon Dioxide (21-32) mmol/L POC Total CO2 (24-31) mEq/l Anion Gap (3-11) POC Anion Gap (16-25) mmol/L POC BUN (7-18) mg/dl BUN (7-18) mg/dl Creatinine (0.6-1.2) mg/dl POC Creatinine (0.6-1.3) mg/dl Est Cr Clr Drug Dosing Est GFR ( Amer) Est GFR (Non-Af Amer) BUN/Creatinine Ratio (10-20) Glucose (70-99) mg/dl POC Glucose (70-99) POC Glucose (other) (70-99) mg/dl Estimat Average Glucose mg/dl Hemoglobin A1c (4.5-5.6) % Lactate (0.4-2.0) mmol/L Calcium (8.5-10.1) mg/dl POC Ioniz Calcium Chivo (1.12-1.32) mmol/l Phosphorus (2.5-4.9) mg/dl Magnesium (1.8-2.4) mg/dl Total Bilirubin (0.2-1) mg/dl AST (15-37) U/L ALT (12-78) U/L Alkaline Phosphatase (45-117) U/L Troponin I (0-0.045) ng/ml Total Protein (6.4-8.2) gm/dl Albumin (3.4-5.0) gm/dl Globulin (2.5-4.0) gm/dl Albumin/Globulin Ratio (0.9-2) Procalcitonin (0-0.5) ng/ml TSH (0.300-4.500) uIu/ml Free T4 (0.8-1.6) ng/dl Free T3 (2.3-4.2) pg/ml Random Cortisol mcg/dl Urine Color Urine Appearance Urine pH Ur Specific [place] Urine Protein Urine Glucose (UA) Urine Ketones Urine Blood Urine Nitrite Urine Bilirubin Urine Urobilinogen Ur Leukocyte Esterase Nasal Screen MRSA (PCR) (Negative) Salicylates (2.8-20) mg/dl Urine Opiates Screen Ur Methadone, Qual Acetaminophen (10-30) ug/ml Urine Barbiturates Gabapentin Ur Phencyclidine (PCP) U Amphetamin/Meth Scrn MDMA (Ecstasy) Screen U Benzodiazepines Scrn Ur Cocaine Metabolite U Marijuana (THC) Screen Ethyl Alcohol mg/dL (0-3) mg/dl Hep Bs Antigen (Neg) Hep Bs Antibody Hep Bs Antibody, Quant (>or=10mIU/mL Immune) mIU/mL Medications Administered Current Inpatient Medications Aspirin (Ecotrin Ectab) 81 mg PO DAILY [facility] Stop: 06/05/18 08:59 Last Admin: 05/06/18 10:53 Dose: Not Given Calcium Acetate (Phoslo) 1,334 mg PO TID [facility] Stop: 06/04/18 22:30 Last Admin: 05/06/18 09:38 Dose: Not Given Dextrose (Dextrose 50%) 25 - 50 ml IV UD PRN; Protocol PRN Reason: Hypoglycemia Protocol Stop: 06/04/18 22:30 Epoetin Wilfredo (Procrit) 10,000 units IV TODAY@1100 [facility] Stop: 05/06/18 18:00 Fentanyl Citrate (Fentanyl Citrate) 50 mcg IV Q2H PRN PRN Reason: Moderate Pain (4,5,6) Stop: 05/19/18 22:30 Last Admin: 05/06/18 07:32 Dose: 50 mcg Glucagon (Glucagen) 1 mg SQ UD PRN; Protocol PRN Reason: Hypoglycemia Protocol Stop: 06/04/18 22:30 Glucose (Glucose 40%) 15 - 30 gm PO UD PRN; Protocol PRN Reason: Hypoglycemia Protocol Stop: 06/04/18 22:30 Glucose (Dex4 Glucose) 4 - 8 tabs PO UD PRN; Protocol PRN Reason: Hypoglycemia Protocol Stop: 06/04/18 22:30 Heparin Sodium (Porcine) (Heparin Sodium (Porcine)) 5,000 units SQ Q12 [facility] Stop: 06/05/18 08:59 Last Admin: 05/06/18 09:46 Dose: 5,000 units Heparin Sodium (Porcine) (Heparin Iv Bolus) 3,000 units IV TODAY@1100 [facility] Stop: 05/06/18 18:00 Levothyroxine Sodium 100 mcg/ (Syringe) 5 mls @ 2 mls/min IV DAILY@0900 [facility] Stop: 06/05/18 08:59 Last Admin: 05/06/18 09:49 Dose: 2 mls/min Hydrocortisone Sodium (Succinate 50 mg/ Syringe) 1 mls @ 4 mls/min IV Q6 [facility] Stop: 06/04/18 22:29 Last Admin: 05/06/18 05:41 Dose: 4 mls/min Pantoprazole Sodium 40 mg/ (Syringe) 10 mls @ 5 mls/min IV DAILY@1100 [facility] Stop: 06/05/18 10:59 Last Admin: 05/06/18 09:49 Dose: 5 mls/min Piperacillin Sod/Tazobactam (Sod 3.375 gm/ Dextrose) 115 mls @ 28.75 mls/hr IV Q12H [facility]; Protocol Stop: 05/13/18 09:59 Last Admin: 05/06/18 09:49 Dose: 28.8 mls/hr Norepinephrine Bitartrate 8 mg (/ Dextrose) 508 mls @ 32.15 mls/hr IV .[id number] PRN; Protocol PRN Reason: TITRATE Stop: 06/05/18 03:25 Last Titration: 05/06/18 08:47 Dose: 0.1 mcg/kg/min, 32.2 mls/hr Sodium Chloride (Nss 1000ml) 1,000 mls @ 0 mls/hr IV .Q0M PRN PRN Reason: For Hemodialysis Use ONLY Stop: 05/06/18 16:40 Ipratropium [place] (Atrovent 0.02% 0.5mg/2.5ml) 0.5 mg INH Q4R [facility] Stop: 06/05/18 00:00 Last Admin: 05/06/18 07:08 Dose: 0.5 mg Levalbuterol HCl (Xopenex 1.25mg/0.5ml Neb) 1.25 mg INH Q4R [facility] Stop: 06/05/18 00:00 Last Admin: 05/06/18 07:08 Dose: 1.25 mg Midazolam HCl (Versed) 1 mg IV Q1H PRN PRN Reason: Agitation Stop: 06/05/18 00:26 Miscellaneous (Icu Protocol For Hyperglycemia) 1 ea N/A PRN PRN; Protocol PRN Reason: Hyperglycemia Protocol Stop: 05/07/18 22:30 Miscellaneous (Carbohydrates For Hypoglycemia) 15 - 30 gm PO UD PRN PRN Reason: Hypoglycemia Treatment Stop: 06/04/18 22:30 Miscellaneous Information (Consult) 1 ea N/A UD PRN PRN Reason: Consult Stop: 06/04/18 23:08 Miscellaneous Information (Consult) 1 ea N/A UD PRN PRN Reason: Consult Stop: 06/04/18 23:09 Vitamin D (Vitamin D3) 1,000 units PO DAILY [facility] Stop: 06/05/18 08:59 Last Admin: 05/06/18 09:38 Dose: Not Given Resident Activity Tracking Resident Involvement: Resident Care Provided Care Provided: Adult Hospital Medicine
[2018-05-06] MEDS ORDERED: fentaNYL citrate 100 MCG/2 ML VIAL IV STA (11:41)
[2018-05-06] MEDS ORDERED: MIDAZOLAM HCL 1 MG/ML 2ML VIAL IV ONE (11:42)
--- NOTE | 2018-05-06 12:52 | Procedure Note ---
Procedure Note: Bronchoscopy Procedure Procedure date: Noted above Procedure: fiberoptic bronchoscopy Pre-procedure Diagnosis: Aspiration pneumonia, hypoxic respiratory failure Post-procedure Diagnosis: same as above Prior to Procedure: Informed Consent: The risks, benefits, indications, potential complications, and alternatives were explained to the patient's son and informed consent obtained. Attending Staff: Connie Sims DO Resident/APC: Carlos Skin Prep: Not applicable Anesthesia: 4 mg Versed 100 mcg fentanyl Indications: Patient is a 52-year-old female with end-stage renal disease secondary to polycystic kidney disease who was intubated in the emergency department for acute hypoxic respiratory failure secondary to presumptive aspiration pneumonia. The identity of the patient was confirmed and a bedside time out was performed. Description of Procedure: Fiberoptic bronchoscopy was performed via endotracheal tube. Bronchioalveolar lavage right lower lobe was performed. Findings included: Hyperemic tissues bilaterally with thin purulent secretions in the right lower lobe. Patient also had excessive dynamic airway collapse greater than 50% luminal collapse in the segmental airways and 50% collapse in the main trachea. Complications: None Specimens: Bronchial washings sent for culture and Gram stain, cytology, fungal elements, and AFB stain and culture. Estimated blood loss: Zero
--- NOTE | 2018-05-06 13:12 | Pharmacy Report ---
Pharmacy Abx Initial Consult - Date of Service May 06, 2018 - Pharmacy Dosing Scope Date of Consult: 05/06 Consultation requested by: Luis M Santiago PA-C Pharmacy is consulted to initiate vancomycin/zosyn IV/PO dosing therapy, order appropriate labs and adjust drug dose/frequency. - Subjective The patient is a 52 year old F admitted on 05/05/18 20:48. - Objective Height: 5 ft 3 in Weight: 84.7 kg Vital Signs (Past 12hrs): Vital Signs Temp Pulse Resp BP Pulse Ox 05/06/18 13:00 83 20 104/59 L 99 05/06/18 12:09 20 05/06/18 12:01 84 20 102/63 99 05/06/18 12:00 37.3 C 85 20 99 05/06/18 11:55 83 20 100 05/06/18 11:50 85 20 100 05/06/18 11:45 87 20 100 05/06/18 11:40 85 20 100 05/06/18 11:14 20 05/06/18 11:01 86 120/59 L 100 05/06/18 10:01 85 122/65 100 05/06/18 09:00 81 117/68 100 05/06/18 08:30 80 100 05/06/18 08:01 82 101/56 L 99 05/06/18 07:49 82 26 H 99 05/06/18 07:30 37.4 C 86 99 05/06/18 07:01 87 128/81 98 05/06/18 06:30 82 24 98 05/06/18 06:00 83 105/59 L 98 05/06/18 05:50 81 98 05/06/18 05:40 85 98 05/06/18 05:30 84 98 05/06/18 05:20 84 98 05/06/18 05:10 87 98 05/06/18 05:01 88 93/51 L 98 05/06/18 05:00 88 98 05/06/18 04:50 88 98 05/06/18 04:40 87 98 05/06/18 04:30 87 98 05/06/18 04:20 86 99 05/06/18 04:10 86 99 05/06/18 04:00 85 97/53 L 98 05/06/18 03:50 82 98 05/06/18 03:40 84 98 05/06/18 03:30 85 98 05/06/18 03:20 86 98 05/06/18 03:12 85 85/48 L 97 05/06/18 03:10 86 97 05/06/18 03:00 86 86/48 L 97 05/06/18 02:50 87 97 05/06/18 02:40 87 97 05/06/18 02:30 87 97 05/06/18 02:20 87 26 H 97 05/06/18 02:10 87 97 05/06/18 02:01 87 74/45 L 97 05/06/18 02:00 88 97 05/06/18 01:55 89 87/49 L 100 05/06/18 01:50 89 05/06/18 01:40 89 97 05/06/18 01:35 89 90/51 L 98 05/06/18 01:30 89 97 05/06/18 01:20 89 98 05/06/18 01:10 90 97 Lab Results (24hrs): Laboratory Tests (24 Hours) 05/06/18 05/06/18 05/06/18 11:36 04:41 04:41 WBC Neut # (Auto) Creatinine 8.08 H* Est Cr Clr Drug Dosing 8.3 Procalcitonin 1.95 H Random Vancomycin 28.7 05/06/18 05/05/18 05/05/18 04:41 16:40 16:40 WBC 5.96 7.09 Neut # (Auto) 5.44 6.29 Creatinine 8.13 H* Est Cr Clr Drug Dosing Not Reportable Procalcitonin Random Vancomycin Micro Results: 05/06/18 11:50 Gram Stain - Pending Bronch Wash,Right Lower Lobe Bronchoalveolar Lavage Culture - Pending 05/06/18 11:50 Fungal Smear - Pending Bronch Wash,Right Lower Lobe Fungal Culture - Pending 05/06/18 11:50 Acid Fast Bacilli Smear - Pending Bronch Wash,Right Lower Lobe Acid Fast Bacilli Culture - Pending 05/06/18 10:39 Urine Culture - Pending Urine,Indwelling Cath 05/06/18 00:29 Blood Culture - Pending Blood 05/05/18 23:21 Blood Culture - Pending Blood - Risk Factors for Resistance * Chronic dialysis within the past 30 days - Assessment & Plan Assessment 52 year old F with ESRD, hemodialysis M/W/F, COPD, RITU, valvular heart disease, hx of endocarditis and substance abuse, presented to the ED with altered mental status nad subsequently required indtubation with respiratory acidosis. Starting vancomycin/zosyn empirically for aspiration pneumonia. Tmax 37.6, normal WBC, blood cultures pending, bronch performed 05/06 Plan vancomyc/zosyn for treatment of aspiration pneumonia Vancomycin IV * ESRD w/ HD M/W/F * Patient was loaded with 1500 mg ~0000 on 05/06 * Pre-HD level today 28.7, patient in anuric * Will dose by levels, Estimate level after HD to be ~20.6, since patient anuric and pre-HD level >25 will hold additional post-dialysis dose * Will obtain random level tomorrow AM in case of repeat HD/will give supplemental dose tomorrow if needed. * Goal trough level 15-20 Piperacillin/tazobactam * 3.375 g bolus administered over 30 minutes, then 3.375 g IV extended infusion every 12 hours for dialysis. Pharmacy will continue to follow and will adjust dose/frequency as necessary. Thank you.
--- NOTE | 2018-05-06 13:43 | Consultation Report ---
DATE OF CONSULTATION: 05/06/2018 RENAL CONSULTATION PROBLEM: end-stage renal disease. SUBJECTIVE: Mrs. Allen is a 52-year-old -[place] woman well known to me. I have been attempting to manage her end-stage renal disease and other issues over the course of the past several years. From the standpoint of her end-stage renal disease, Mrs. Allen was found to have adult polycystic kidney disease many years ago prior to relocating to [place] from [facility]. The diagnosis was confirmed after moving to [place]. I saw her for the first time several years ago in consultation for the hospitalist service here. At that time, an abdominal ultrasound was consistent with polycystic kidney disease. Conservative therapy was applied in an effort to control her blood pressure and manage the metabolic consequences of her chronic kidney disease. In 2008, an AV fistula was created in her left upper arm for maintenance dialysis. However, she was poorly compliant thereafter. She did not keep regular appointments, and when she did keep appointments, it was apparent that she was not taking her medications. She presented to my office with symptomatic uremia in 2009 and was begun on maintenance dialysis at that time. However, she was poorly compliant and disappeared from the dialysis unit for months. She returned to my office in 2010. At that time, it was noted that her AV fistula was clotted, she was symptomatically uremic, a tunneled catheter was placed for maintenance dialysis. It was in the right IJ. Dialysis was initiated. Another AV fistula was created by Dr. Xie. Mrs. Allen has been on maintenance dialysis since that time, but continues to be poorly compliant as far as attendance to her dialysis treatments. She misses her dialysis treatments frequently for a variety of apparently personal reasons. Additionally, she has been poorly compliant, not only from her treatment regimen as well as her medications. She has not been following her diet regularly; however, has not had major problems as a result. Mrs. Allen has had multiple admissions to this institution over the course of the past several years with episodes of respiratory failure. She has also been admitted with an episode of chest pain and has been admitted with symptomatic heart failure as well as a secondary anemia. She is felt to have obstructive sleep apnea on a clinical basis. Nocturnal hypoxemia has been documented during hospitalizations. She is a loud snorer and has physical features of an individual with obstructive sleep apnea. Central sleep apnea has also been considered; however, she has refused to have a formal sleep study. Nevertheless, we assume that she has obstructive sleep apnea. She refuses to try CPAP at home. In December of 2012, she had a mitral valve repair and a tricuspid valve repair at the [facility]. Her postoperative course was complicated by complete heart block. That led to the placement of a permanent pacemaker. She did relatively well postoperatively and was transferred [facility]. However, she signed herself out of that facility after only 2 days. She seemed to make reasonably good progress thereafter and did fairly well from a cardiac standpoint. Mrs. Allen has been dialyzing at [facility] in [place] at the [place] unit. She has continued her habit of missing frequent dialysis treatments at least twice a month. When she does appear, she will often sign herself off treatments early. She has had multiple admissions as noted with respiratory failure. On those occasions, she is noted to have markedly elevated TSH levels. She has had documented levels of gabapentin. Offend I do not recall how often we have found the elevated levels of benzodiazepines and opiates. In addition to her evidence of congestive heart failure and the low ejection fraction (left ventricular ejection fraction of 40-45% when last measured), she has been noted to be severely hypothyroid during an admission with respiratory failure, her TSH has been in the range of greater than 500 international units!, her profound hypothyroidism has been a frequent comorbid event when she comes to the hospital and myxedema coma has been suggested as a possible etiology for episodes of respiratory failure and altered mental status. Her usual dose of levothyroxine is 175 mcg daily, we have urged her to try to be compliant with that medication, and in the past, I have administered it during her dialysis treatments. We had a program where she would take two 175 mcg pills with each dialysis unit. That plan had been recommended by Dr. Barber Villalobos. There has also been concerned during hospitalization of overdoses of medication including Percocet and gabapentin, Mrs. Allen has a peripheral neuropathy and also has pains related to her ventral hernia. However, she has been abusive of analgesics in the past as well as her gabapentin. These medications are now prescribed to her 10 days at a time. She gets 300 mg of gabapentin tablets, but only gets 10 to take 1 at bedtime. She gets 20 Percocet 10/325 tablets as well as ten 1 mg lorazepam tablets to use twice a day. She has never been given them more frequently than every 10 days. She last got her prescriptions on May 03, which was her last dialysis treatment. Her episodes of respiratory failure leading to hospitalizations in the past have been severe and required mechanical ventilation, on one occasion in October of 2013, she did have a full cardiorespiratory arrest, but was successfully resuscitated. Other issues have included recurrent ascites for which she has had paracenteses in the past because of discomfort that has not been done recently. It is felt that her ascites is secondary to her tricuspid regurgitation which apparently persists despite the apparent tricuspid valve repair. She is not going to her regular cardiology visits. Additionally, there is significant concern that she has pulmonary hypertension related to COPD. She continues to complain of pain from her ventral hernia, she was referred on multiple occasions to the [facility] surgery group for evaluation of another repair, she has consistently not kept those visits. Finally, she has a history of persistent hypotension. This is probably multifactorial, we have tried to stimulate her blood pressure with the use of midodrine. There has been limited success with that, but were unsure of her compliance. Nonetheless, with her usual dialysis treatment, she is capable of maintaining her systolic blood pressure near 80 with adequate amounts of fluid removal. With the above background, she was admitted on 05/05 with being obtunded. She was found to have a marked respiratory acidosis. She did not have evidence of a metabolic acidosis despite her end-stage renal disease. However, an albumin was not apparently measured at the time of her admission to assess her for that issue. Because of her profound acidosis and hypoxemia, she was intubated and placed on the ventilator and admitted. PAST MEDICAL HISTORY: Significant for polycystic kidney disease, presumed obstructive sleep apnea, COPD and asthma with a history of apparent pulmonary hypertension. She has a history of tricuspid and mitral valve repairs with a presumed tricuspid regurgitation. She has a history of anxiety and depression. There is a history of hypothyroidism as noted. She has a ventral hernia which is painful and frequently developed significant ascites. She has diverticulosis of frequent comorbid problem with polycystic kidney disease. She has a history of having had a cholecystectomy. She has drug seeking behavior and a peripheral neuropathy. PAST SURGICAL HISTORY: Includes her cardiac surgery and placement of her pacemaker as noted above. She has had multiple surgical procedures on her arms for the creation of AV fistulas. Her current fistula is functional in the left upper arm. There is a history of a cholecystectomy, tubal ligation, T and A, and a section. She has had several attempts at ventral hernia repairs in the distant past. CURRENT HOME MEDICATIONS: Include an albuterol inhaler 2 puffs q. 4 hours p.r.n., aspirin 81 mg daily, lorazepam 1 mg b.i.d. p.r.n. (she uses it regularly). She has budesonide 2 mL twice a day via nebulizer. She takes calcium acetate 667 mg 2 with meals (poorly compliant). She has vitamin D3 5000 units daily. She uses a Combivent inhaler 2 puffs 4 times a day p.r.n. She is prescribed Diatx Zn 1 daily, gabapentin 300 mg to take 1 at bedtime, Lactinex 2 tablets twice daily, levothyroxine 175 mcg daily, midodrine 10 mg 3 times a day, milk of magnesia on a p.r.n. basis, Percocet 10/325 one q. 12 hours p.r.n. and Protonix 40 mg daily. In the dialysis unit, she is also receiving Parsabiv now 7.5 mg after each dialysis treatment. During her dialysis treatments, she does get heparin 3000 units prior to each dialysis treatment. She also gets calcitriol 2 mcg with each dialysis treatment. That drug was administered orally. She gets Mircera in doses to maintain her hemoglobin in the range of 11-12. ALLERGIES: No known medication allergies. The rest of her past medical history, family history, social history, and review of systems is outlined on previous notes. The most significant issues are significant social issues. She lives in an apartment with her who apparently has chronic illnesses of his own. Her children have apparently had significant issues with the law. As noted, she frequently misses dialysis treatments. She is poorly ambulatory as a result of her neuropathy and chronic medical conditions and has tried to obtain power wheelchairs and motorized scooters in the past. Although all criteria have been met, she is yet to get one of those devices. OBJECTIVE: GENERAL: On physical exam when seen by me, she was intubated, but was easily aroused. VITAL SIGNS: Her blood pressure 117/68, her pulse 81 and regular, her respiratory rate was 26. She had a low-grade fever of 37.4, her oxygen saturation was 100%. SKIN: Her skin was warm and dry. She has multiple scars from prior surgical procedures. The skin of her distal lower extremities was quite dry. She has markedly dystrophic toenail changes. She has some interosseous muscle wasting particularly in her feet. There is a left upper arm AV fistula which appears to be functioning well. LYMPHATICS: Show no palpable lymphadenopathy. HEENT: Her head is grossly normal. Eyes show her pupils to be reactive to light. Extraocular movements are intact. Her conjunctivae are not icteric. I did not examine the fundi. Nose, mouth and throat show her to be intubated. Oral mucous membranes appeared to be moist, but the exam was difficult because of her endotracheal tube. NECK: Supple. There was no definite jugular venous distention noted. However, the exam was limited by her body habitus. I hear no carotid bruit. I cannot feel her thyroid. CHEST: Her chest is relatively clear to auscultation on the ventilator. I did not hear any wheezes, rales or rhonchi. She does have a palpable pacemaker in place. CARDIAC: Shows a regular rhythm. There is a grade 3/6 systolic murmur at the base radiating along the left sternal border to the apex, but also radiating toward the neck. I did not hear a diastolic murmur. She has no gallops or rubs. ABDOMEN: Protuberant. There is a mid abdominal ventral hernia which reduces easily, but does seem a bit tender. She does have a positive fluid wave. It is difficult to feel her kidneys because of the ascites and mild abdominal distention. EXTREMITIES: Show no cyanosis, clubbing or peripheral edema. She has a left upper arm AV fistula. NEUROLOGIC: Shows her to be somewhat lethargic, but easily aroused and when aroused, she complains of pain. LABORATORY DATA: Pertinent laboratory work shows a white count of 5960 with 91.2% neutrophils, 5.0% lymphocytes, 3.4% monocytes, no eosinophils and no basophils. Her hemoglobin was 10.4, her hematocrit 33.3. Red cell indices are slightly macrocytic, her platelet count was 90,000. On admission, it was 117,000. Her prothrombin time is 13.3 with an INR of 1.3. Arterial blood gases this morning showed a pH of 7.26, a pCO2 of 53 and a pO2 of 79. Her oxygen saturation is 93%. Clinical chemistries from this morning show a sodium of 132 mmol/L, potassium 4.6 mmol/L, chloride is 98 mmol/L, and CO2 content 25 mmol/L, BUN is 46, creatinine 8.08. A random blood sugar is 104. Her hemoglobin A1c was 5.4, her serum calcium is 7.4, her phosphate 8.0, her serum magnesium 2.4. A procalcitonin is 1.95. Her free T3 is 1.03, her free T4 is 0.53, her TSH is 155!. Her serum albumin was 3.6 with a total protein of 8.7. Toxicology screen was limited to a salicylate level which was 2.0 and an acetaminophen level which was less than 2. An ethyl alcohol level was less than 3.0. Hepatitis B surface antibody is 4.77. Hepatitis B surface antigen is negative. ASSESSMENT: Mrs. Allen has an obvious history of end-stage renal disease secondary to polycystic kidney disease and is dialysis dependent. She has chronic obstructive pulmonary disease. She also has a history of tricuspid regurgitation and a tricuspid valve repair as well as mitral valve repair. She presents now obtunded. Certainly, her elevated TSH suggests that there is a component of myxedema with that. Additionally, she has obstructive sleep apnea which could be a comorbid feature of her current situation. There is x-ray evidence of some volume overload as well. I am quite concerned that she may have taken more drugs including gabapentin, Ativan, and Percocet over the weekend because of pain leading to her current issue. PLAN: Continue supportive care, make sure she gets thyroid replacement. To understand the current issue, I would definitely check gabapentin and benzodiazepine blood levels as well as blood levels of opiates. Will arrange for her to have her hemodialysis treatment. I will continue to follow her with you.
[2018-05-06] MEDS: MIDAZOLAM HCL 1 MG/ML 2ML VIAL IV PRN (15:00)
[2018-05-06] MEDS ORDERED: MIDAZOLAM HCL 5 MG/ML 1 ML VIAL IV PRN (16:17)
[2018-05-06] MEDS ORDERED: fentaNYL citrate 100 MCG/2 ML VIAL IV ONE (16:30)
--- NOTE | 2018-05-06 16:51 | XRay Report ---
XR chest 1V portable CLINICAL HISTORY: Line placement. COMPARISON STUDY: Chest CT May 05, 2018 and chest radiograph May 06, 2018. FINDINGS: Tip of nasogastric tube is below the lower aspect of this image but at least within the pro ximal stomach. The tip of the endotracheal tube is 3 cm above the rigoberto. There is a prosthetic cardi ac valve and a right subclavian pacer. Elevation of the right hemidiaphragm with right chest wall def ormity is noted. Extensive bilateral airspace opacities persist. There is no pneumothorax. There are suspected trace bilateral pleural effusions. Peripherally calcified vascular structures within the le ft upper arm are partially imaged. IMPRESSION: 1. Satisfactory positioning of the endotracheal and nasogastric tubes. 2. Persistent bilateral airspace opacities which favor pneumonia. 3. Trace bilateral pleural effusions. No pneumothorax. Electronically signed by: Yaw Thacker M.D. 05/06/2018 4:49 PM
--- NOTE | 2018-05-06 17:42 | Family Medicine Progress Note ---
Date of Service May 06, 2018 Assessment & Plan (1) Altered mental status: Ms. Allen is a 52-year-old with a history of polycystic kidney disease, resulting in ESRD on dialysis, valvular heart disease as/P tricuspid and mitral valve repair, drug abuse, COPD, hyperlipidemia, systolic heart failure, prior endocarditis, neuropathy, hypothyroidism who presents to the emergency department due to altered mental status. Trial of BiPAP with concurrent administration of naloxone was attempted in the emergency department, however due to her worsening ABG, she was subsequently intubated and placed on a ventilator. - Differential for altered mental status includes secondary to infection, drug abuse, myxedema coma - AMS improving. Patient is awake and alert and able to understand commands (2) History of drug abuse: - Check urine drug screen - pt has history of drug abuse in the past (3) Acute respiratory failure with hypoxia and hypercarbia: - chronically on 3.5 L NC O2 - currently intubated - Chest CT showed extensive aspiration w/edema vs. hemorrhage - on scheduled Xopenex, Atrovent, hydrocortisone. Concern for extensive aspiration and edema vs hemorrhage. - s/p bronchoscopy today (4) COPD (chronic obstructive pulmonary disease): - as above (5) Aspiration pneumonia: - on zosyn and vancomycin (day 2) for aspiration pneumonia - bcx pending - Lactate negative, procal elevated at 1.95 (6) Acute on chronic systolic heart failure: -Unable to diurese as patient is anuric (7) Hypotension: -Recently currently hypotensive, requiring levophed drip as well as IV steroids -was on midodrine in outpatient setting (8) S/P mitral valve repair: (9) S/P placement of cardiac pacemaker: (10) S/P tricuspid valve repair: (11) Hypothyroidism: -TSH of 155, patient generally noncompliant with home medications -Treat with IV levothyroxine 100 mcg daily (12) End-stage renal disease (ESRD): -secondary to polycystic kidney disease -Follows with Dr. Hugo in the outpatient setting -Generally receives dialysis Sunday, Sunday, Sunday (13) Ventral hernia: -No evidence of strangulation as noted on CT abdomen and pelvis (14) Anemia: -Hemoglobin currently 10.4 - received procrit today (15) Liver cirrhosis: -CT abdomen and pelvis suggestive of liver cirrhosis -Hepatitis B serology ordered and negative -Alk phos elevated, but AST and ALT normal -We will check hepatitis C (16) Thrombocytopenia: -Platelet level low at 90 -CT abdomen and pelvis shows splenomegaly, possibly contributing to platelet consumption -Continue to trend CBC CODE STATUS: Full DVT prophylaxis: heparin 5,000 SQ q12h Disposition: Remains in ICU Supervising Physician Co-Signing Physician Notes Patient seen and examined at the bedside with Dr. Walton. Agree with history , exam findings, assessment and plan of care as outlined by Dr. Walton. Changes and updates below. In brief, Ms. Allen is a 52 year old female with complex medical history including hypothyroidism, ESRD, valvular heart disease and drug abuse complicated by non-adherence admitted with altered mental status. She is intubated and sedated, although arousable to voice. She has soft restraints on. 1. acute resp failure. likely secondary to aspiration pneumonia. on vanc and zosyn. intubated. management per critical care team. Bronched today--purulent secretions in RLL. excessive dynamic airway collapse. Pending bronch washing studies--culture, gram stain, cytology, AFB, fungal cx. 2. HFpEF. fluid overload, however anuric so likely will need to take fluid off with HD. 3. hypothyroid. TSH 155. IV levothyroxine 100mg. 4. ESRD. anuric. HD MWF. appreciate renal recs. 5. polycystic liver. evidence of fibrotic change, splenomegaly and now with new thrombocytopenia--check LFTs, Hep C, HIV. Subjective Ms. Allen is currently sedated and on a ventilator. She does open her eyes and respond to commands, however history and review of systems is limited. Gastrointestinal: + abdominal pain Physical Exam 2 Vital Signs (Past 24 Hours): Last Vital Signs Temp 36.9 C 05/06/18 16:01 Pulse 84 05/06/18 17:30 Resp 20 05/06/18 17:01 BP 119/73 05/06/18 17:30 Pulse Ox 96 05/06/18 17:01 Constitutional: cooperative, comfortable and + mechanically ventilated Eyes: + anicteric sclerae; no conjunctival abnormality Respiratory: Auscultation: + diminished lung sounds (Coarse breath sounds bilaterally) and + wheezes (Scattered wheezing bilaterally); no crackles Cardiovascular: RRR, no murmur, no edema (Pacemaker in place) Gastrointestinal (Abdomen): Percussion/Palpation: + abdomen tender (Tender over ventral hernia) and abdomen soft; no guarding and abdomen not rigid Skin: Dry, scaly skin noted on bilateral lower remedies, worse over the feet. Significant deformities noted of bilateral toenails. Results & Data Laboratory Results Laboratory Results - last 24 hr 05/05/18 05/05/18 05/05/18 16:40 16:40 17:27 WBC RBC Hgb POC Hgb Hct POC Hct MCV MCH MCHC RDW Std Deviation RDW Coeff of Ya Plt Count MPV Immature Gran % (Auto) Neut % (Auto) Lymph % (Auto) [place] % (Auto) Eos % (Auto) Baso % (Auto) Immature Gran # (Auto) Neut # (Auto) Lymph # (Auto) [place] # (Auto) Eos # (Auto) Baso # (Auto) Toxic Vacuolation Platelet Estimate RBC Morphology PT INR Sample Site POC pH POC pCO2 POC pO2 POC HCO3 POC Total CO2 POC Base Excess POC ABG O2 Sat Jeb Test O2 Delivery Device POC O2 Rate Minute Ventilation POC FiO2 Tidal Volume PEEP POC Sodium Sodium POC Potassium Potassium Chloride Carbon Dioxide Anion Gap BUN Creatinine Est Cr Clr Drug Dosing Est GFR ( Amer) Est GFR (Non-Af Amer) BUN/Creatinine Ratio Glucose POC Glucose (other) Estimat Average Glucose Hemoglobin A1c Lactate Calcium Phosphorus Magnesium Procalcitonin TSH 155.000 H Free T4 0.53 L Free T3 1.03 L Random Cortisol 29.45 Urine Color Urine Appearance Urine pH Ur Specific [place] Urine Protein Urine Glucose (UA) Urine Ketones Urine Blood Urine Nitrite Urine Bilirubin Urine Urobilinogen Ur Leukocyte Esterase Urine WBC (Auto) Urine RBC (Auto) U Hyaline Cast (Auto) U Epithel Cells (Auto) Urine Bacteria (Auto) Ur Renal Epithelial Cell Urine Crystals Calcium Oxalate Crystal Uric Acid Crystals Triple Phos Crystals Other Crystals Amorphous Sediment Granular Casts Waxy Casts RBC Casts WBC Casts Other Casts Urine Mucus Urine Other Urine Trichomonas Urine Yeast Urine Sperm Ur Oval Fat Bodies Nasal Screen MRSA (PCR) Random Vancomycin Urine Opiates Screen Ur Methadone, Qual Urine Barbiturates Ur Phencyclidine (PCP) U Amphetamin/Meth Scrn MDMA (Ecstasy) Screen U Benzodiazepines Scrn Ur Cocaine Metabolite U Marijuana (THC) Screen Hep Bs Antigen Hep Bs Antibody Hep Bs Antibody, Quant 05/05/18 05/05/18 05/05/18 19:36 21:37 22:14 WBC RBC Hgb POC Hgb 12.2 Hct POC Hct 36 L MCV MCH MCHC RDW Std Deviation RDW Coeff of Ya Plt Count MPV Immature Gran % (Auto) Neut % (Auto) Lymph % (Auto) [place] % (Auto) Eos % (Auto) Baso % (Auto) Immature Gran # (Auto) Neut # (Auto) Lymph # (Auto) [place] # (Auto) Eos # (Auto) Baso # (Auto) Toxic Vacuolation Platelet Estimate RBC Morphology PT INR Sample Site POC pH 7.06 L* 7.25 L POC pCO2 102 H 56 H POC pO2 110 H 53 L POC HCO3 29 H 24 POC Total CO2 32 H 26 POC Base Excess -1.0 -3.0 POC ABG O2 Sat 95.0 Jeb Test O2 Delivery Device POC O2 Rate Minute Ventilation POC FiO2 Tidal Volume PEEP POC Sodium 134 L Sodium POC Potassium 4.6 Potassium Chloride Carbon Dioxide Anion Gap BUN Creatinine Est Cr Clr Drug Dosing Est GFR ( Amer) Est GFR (Non-Af Amer) BUN/Creatinine Ratio Glucose POC Glucose (other) Estimat Average Glucose Hemoglobin A1c Lactate Calcium Phosphorus Magnesium Procalcitonin TSH Free T4 Free T3 Random Cortisol Urine Color Urine Appearance Urine pH Ur Specific [place] Urine Protein Urine Glucose (UA) Urine Ketones Urine Blood Urine Nitrite Urine Bilirubin Urine Urobilinogen Ur Leukocyte Esterase Urine WBC (Auto) Urine RBC (Auto) U Hyaline Cast (Auto) U Epithel Cells (Auto) Urine Bacteria (Auto) Ur Renal Epithelial Cell Urine Crystals Calcium Oxalate Crystal Uric Acid Crystals Triple Phos Crystals Other Crystals Amorphous Sediment Granular Casts Waxy Casts RBC Casts WBC Casts Other Casts Urine Mucus Urine Other Urine Trichomonas Urine Yeast Urine Sperm Ur Oval Fat Bodies Nasal Screen MRSA (PCR) Negative Random Vancomycin Urine Opiates Screen Ur Methadone, Qual Urine Barbiturates Ur Phencyclidine (PCP) U Amphetamin/Meth Scrn MDMA (Ecstasy) Screen U Benzodiazepines Scrn Ur Cocaine Metabolite U Marijuana (THC) Screen Hep Bs Antigen Hep Bs Antibody Hep Bs Antibody, Quant 05/05/18 05/06/18 05/06/18 23:09 00:37 04:41 WBC 5.96 RBC 3.32 L Hgb 10.4 L POC Hgb Hct 33.3 L POC Hct MCV 100.3 H MCH 31.3 MCHC 31.2 L RDW Std Deviation 54.8 H RDW Coeff of Ya 14.9 H Plt Count 90 L MPV 10.2 Immature Gran % (Auto) 0.2 Neut % (Auto) 91.2 Lymph % (Auto) 5.0 [place] % (Auto) 3.4 Eos % (Auto) 0.0 Baso % (Auto) 0.2 Immature Gran # (Auto) 0.01 Neut # (Auto) 5.44 Lymph # (Auto) 0.30 L [place] # (Auto) 0.20 Eos # (Auto) 0.00 Baso # (Auto) 0.01 Toxic Vacuolation 1+ Platelet Estimate Decreased RBC Morphology Unremarkable PT INR Sample Site Art Line POC pH 7.24 L POC pCO2 57 H POC pO2 60 L POC HCO3 24 POC Total CO2 26 POC Base Excess -3.0 POC ABG O2 Sat 84.0 L Jeb Test NA O2 Delivery Device Ventilator POC O2 Rate 26 Minute Ventilation 10.2 POC FiO2 40 Tidal Volume 450 PEEP 5 POC Sodium Sodium POC Potassium Potassium Chloride Carbon Dioxide Anion Gap BUN Creatinine Est Cr Clr Drug Dosing Est GFR ( Amer) Est GFR (Non-Af Amer) BUN/Creatinine Ratio Glucose POC Glucose (other) Estimat Average Glucose Hemoglobin A1c Lactate 0.6 Calcium Phosphorus Magnesium Procalcitonin TSH Free T4 Free T3 Random Cortisol Urine Color Urine Appearance Urine pH Ur Specific [place] Urine Protein Urine Glucose (UA) Urine Ketones Urine Blood Urine Nitrite Urine Bilirubin Urine Urobilinogen Ur Leukocyte Esterase Urine WBC (Auto) Urine RBC (Auto) U Hyaline Cast (Auto) U Epithel Cells (Auto) Urine Bacteria (Auto) Ur Renal Epithelial Cell Urine Crystals Calcium Oxalate Crystal Uric Acid Crystals Triple Phos Crystals Other Crystals Amorphous Sediment Granular Casts Waxy Casts RBC Casts WBC Casts Other Casts Urine Mucus Urine Other Urine Trichomonas Urine Yeast Urine Sperm Ur Oval Fat Bodies Nasal Screen MRSA (PCR) Random Vancomycin Urine Opiates Screen Ur Methadone, Qual Urine Barbiturates Ur Phencyclidine (PCP) U Amphetamin/Meth Scrn MDMA (Ecstasy) Screen U Benzodiazepines Scrn Ur Cocaine Metabolite U Marijuana (THC) Screen Hep Bs Antigen Hep Bs Antibody Hep Bs Antibody, Quant 05/06/18 05/06/18 05/06/18 04:41 04:41 04:41 WBC RBC Hgb POC Hgb Hct POC Hct MCV MCH MCHC RDW Std Deviation RDW Coeff of Ya Plt Count MPV Immature Gran % (Auto) Neut % (Auto) Lymph % (Auto) [place] % (Auto) Eos % (Auto) Baso % (Auto) Immature Gran # (Auto) Neut # (Auto) Lymph # (Auto) [place] # (Auto) Eos # (Auto) Baso # (Auto) Toxic Vacuolation Platelet Estimate RBC Morphology PT 13.3 H INR 1.3 H Sample Site POC pH POC pCO2 POC pO2 POC HCO3 POC Total CO2 POC Base Excess POC ABG O2 Sat Jeb Test O2 Delivery Device POC O2 Rate Minute Ventilation POC FiO2 Tidal Volume PEEP POC Sodium Sodium 132 L POC Potassium Potassium 4.6 Chloride 98 Carbon Dioxide 25 Anion Gap 9.0 BUN 46 H Creatinine 8.08 H* Est Cr Clr Drug Dosing 8.3 Est GFR ( Amer) 6.0 Est GFR (Non-Af Amer) 5.1 BUN/Creatinine Ratio 5.7 L Glucose 104 H POC Glucose (other) Estimat Average Glucose 108 Hemoglobin A1c 5.4 Lactate Calcium 7.4 L Phosphorus 8.0 H Magnesium 2.4 Procalcitonin TSH Free T4 Free T3 Random Cortisol Urine Color Urine Appearance Urine pH Ur Specific [place] Urine Protein Urine Glucose (UA) Urine Ketones Urine Blood Urine Nitrite Urine Bilirubin Urine Urobilinogen Ur Leukocyte Esterase Urine WBC (Auto) Urine RBC (Auto) U Hyaline Cast (Auto) U Epithel Cells (Auto) Urine Bacteria (Auto) Ur Renal Epithelial Cell Urine Crystals Calcium Oxalate Crystal Uric Acid Crystals Triple Phos Crystals Other Crystals Amorphous Sediment Granular Casts Waxy Casts RBC Casts WBC Casts Other Casts Urine Mucus Urine Other Urine Trichomonas Urine Yeast Urine Sperm Ur Oval Fat Bodies Nasal Screen MRSA (PCR) Random Vancomycin Urine Opiates Screen Ur Methadone, Qual Urine Barbiturates Ur Phencyclidine (PCP) U Amphetamin/Meth Scrn MDMA (Ecstasy) Screen U Benzodiazepines Scrn Ur Cocaine Metabolite U Marijuana (THC) Screen Hep Bs Antigen Hep Bs Antibody Hep Bs Antibody, Quant 05/06/18 05/06/18 05/06/18 04:41 04:41 04:43 WBC RBC Hgb POC Hgb Hct POC Hct MCV MCH MCHC RDW Std Deviation RDW Coeff of Ya Plt Count MPV Immature Gran % (Auto) Neut % (Auto) Lymph % (Auto) [place] % (Auto) Eos % (Auto) Baso % (Auto) Immature Gran # (Auto) Neut # (Auto) Lymph # (Auto) [place] # (Auto) Eos # (Auto) Baso # (Auto) Toxic Vacuolation Platelet Estimate RBC Morphology PT INR Sample Site POC pH POC pCO2 POC pO2 POC HCO3 POC Total CO2 POC Base Excess POC ABG O2 Sat Jeb Test O2 Delivery Device POC O2 Rate Minute Ventilation POC FiO2 Tidal Volume PEEP POC Sodium Sodium POC Potassium Potassium Chloride Carbon Dioxide Anion Gap BUN Creatinine Est Cr Clr Drug Dosing Est GFR ( Amer) Est GFR (Non-Af Amer) BUN/Creatinine Ratio Glucose POC Glucose (other) 103 H Estimat Average Glucose Hemoglobin A1c Lactate Calcium Phosphorus Magnesium Procalcitonin 1.95 H TSH Free T4 Free T3 Random Cortisol Urine Color Urine Appearance Urine pH Ur Specific [place] Urine Protein Urine Glucose (UA) Urine Ketones Urine Blood Urine Nitrite Urine Bilirubin Urine Urobilinogen Ur Leukocyte Esterase Urine WBC (Auto) Urine RBC (Auto) U Hyaline Cast (Auto) U Epithel Cells (Auto) Urine Bacteria (Auto) Ur Renal Epithelial Cell Urine Crystals Calcium Oxalate Crystal Uric Acid Crystals Triple Phos Crystals Other Crystals Amorphous Sediment Granular Casts Waxy Casts RBC Casts WBC Casts Other Casts Urine Mucus Urine Other Urine Trichomonas Urine Yeast Urine Sperm Ur Oval Fat Bodies Nasal Screen MRSA (PCR) Random Vancomycin Urine Opiates Screen Ur Methadone, Qual Urine Barbiturates Ur Phencyclidine (PCP) U Amphetamin/Meth Scrn MDMA (Ecstasy) Screen U Benzodiazepines Scrn Ur Cocaine Metabolite U Marijuana (THC) Screen Hep Bs Antigen Neg Hep Bs Antibody Non-Immune Hep Bs Antibody, Quant 4.77 L 05/06/18 05/06/18 05/06/18 05:57 11:36 11:42 WBC RBC Hgb POC Hgb Hct POC Hct MCV MCH MCHC RDW Std Deviation RDW Coeff of Ya Plt Count MPV Immature Gran % (Auto) Neut % (Auto) Lymph % (Auto) [place] % (Auto) Eos % (Auto) Baso % (Auto) Immature Gran # (Auto) Neut # (Auto) Lymph # (Auto) [place] # (Auto) Eos # (Auto) Baso # (Auto) Toxic Vacuolation Platelet Estimate RBC Morphology PT INR Sample Site Art Line POC pH 7.26 L POC pCO2 53 H POC pO2 79 L POC HCO3 24 POC Total CO2 25 POC Base Excess -3.0 POC ABG O2 Sat 93.0 Jeb Test NA O2 Delivery Device Ventilator POC O2 Rate 26 Minute Ventilation 10.4 POC FiO2 60 Tidal Volume 450 PEEP 5 POC Sodium Sodium POC Potassium Potassium Chloride Carbon Dioxide Anion Gap BUN Creatinine Est Cr Clr Drug Dosing Est GFR ( Amer) Est GFR (Non-Af Amer) BUN/Creatinine Ratio Glucose POC Glucose (other) 124 H Estimat Average Glucose Hemoglobin A1c Lactate Calcium Phosphorus Magnesium Procalcitonin TSH Free T4 Free T3 Random Cortisol Urine Color Urine Appearance Urine pH Ur Specific [place] Urine Protein Urine Glucose (UA) Urine Ketones Urine Blood Urine Nitrite Urine Bilirubin Urine Urobilinogen Ur Leukocyte Esterase Urine WBC (Auto) Urine RBC (Auto) U Hyaline Cast (Auto) U Epithel Cells (Auto) Urine Bacteria (Auto) Ur Renal Epithelial Cell Urine Crystals Calcium Oxalate Crystal Uric Acid Crystals Triple Phos Crystals Other Crystals Amorphous Sediment Granular Casts Waxy Casts RBC Casts WBC Casts Other Casts Urine Mucus Urine Other Urine Trichomonas Urine Yeast Urine Sperm Ur Oval Fat Bodies Nasal Screen MRSA (PCR) Random Vancomycin 28.7 Urine Opiates Screen Ur Methadone, Qual Urine Barbiturates Ur Phencyclidine (PCP) U Amphetamin/Meth Scrn MDMA (Ecstasy) Screen U Benzodiazepines Scrn Ur Cocaine Metabolite U Marijuana (THC) Screen Hep Bs Antigen Hep Bs Antibody Hep Bs Antibody, Quant 05/06/18 05/06/18 Unknown Unknown WBC RBC Hgb POC Hgb Hct POC Hct MCV MCH MCHC RDW Std Deviation RDW Coeff of Ya Plt Count MPV Immature Gran % (Auto) Neut % (Auto) Lymph % (Auto) [place] % (Auto) Eos % (Auto) Baso % (Auto) Immature Gran # (Auto) Neut # (Auto) Lymph # (Auto) [place] # (Auto) Eos # (Auto) Baso # (Auto) Toxic Vacuolation Platelet Estimate RBC Morphology PT INR Sample Site POC pH POC pCO2 POC pO2 POC HCO3 POC Total CO2 POC Base Excess POC ABG O2 Sat Jeb Test O2 Delivery Device POC O2 Rate Minute Ventilation POC FiO2 Tidal Volume PEEP POC Sodium Sodium POC Potassium Potassium Chloride Carbon Dioxide Anion Gap BUN Creatinine Est Cr Clr Drug Dosing Est GFR ( Amer) Est GFR (Non-Af Amer) BUN/Creatinine Ratio Glucose POC Glucose (other) Estimat Average Glucose Hemoglobin A1c Lactate Calcium Phosphorus Magnesium Procalcitonin TSH Free T4 Free T3 Random Cortisol Urine Color Cancelled Urine Appearance Cancelled Urine pH Cancelled Ur Specific [place] Cancelled Urine Protein Cancelled Urine Glucose (UA) Cancelled Urine Ketones Cancelled Urine Blood Cancelled Urine Nitrite Cancelled Urine Bilirubin Cancelled Urine Urobilinogen Cancelled Ur Leukocyte Esterase Cancelled Urine WBC (Auto) Cancelled Urine RBC (Auto) Cancelled U Hyaline Cast (Auto) Cancelled U Epithel Cells (Auto) Cancelled Urine Bacteria (Auto) Cancelled Ur Renal Epithelial Cell Cancelled Urine Crystals Cancelled Calcium Oxalate Crystal Cancelled Uric Acid Crystals Cancelled Triple Phos Crystals Cancelled Other Crystals Cancelled Amorphous Sediment Cancelled Granular Casts Cancelled Waxy Casts Cancelled RBC Casts Cancelled WBC Casts Cancelled Other Casts Cancelled Urine Mucus Cancelled Urine Other Cancelled Urine Trichomonas Cancelled Urine Yeast Cancelled Urine Sperm Cancelled Ur Oval Fat Bodies Cancelled Nasal Screen MRSA (PCR) Random Vancomycin Urine Opiates Screen Neg Ur Methadone, Qual Neg Urine Barbiturates Neg Ur Phencyclidine (PCP) Neg U Amphetamin/Meth Scrn Neg MDMA (Ecstasy) Screen Neg U Benzodiazepines Scrn Neg Ur Cocaine Metabolite Neg U Marijuana (THC) Screen Pos H Hep Bs Antigen Hep Bs Antibody Hep Bs Antibody, Quant Medications Administered Current Inpatient Medications Aspirin (Ecotrin Ectab) 81 mg PO DAILY [facility] Stop: 06/05/18 08:59 Last Admin: 05/06/18 10:53 Dose: Not Given Calcium Acetate (Phoslo) 1,334 mg PO TID [facility] Stop: 06/04/18 22:30 Last Admin: 05/06/18 12:52 Dose: Not Given Dextrose (Dextrose 50%) 25 - 50 ml IV UD PRN; Protocol PRN Reason: Hypoglycemia Protocol Stop: 06/04/18 22:30 Epoetin Wilfredo (Procrit) 10,000 units IV TODAY@1100 [facility] Stop: 05/06/18 18:00 Fentanyl Citrate (Fentanyl Citrate) 50 mcg IV Q2H PRN PRN Reason: Moderate Pain (4,5,6) Stop: 05/19/18 22:30 Last Admin: 05/06/18 07:32 Dose: 50 mcg Glucagon (Glucagen) 1 mg SQ UD PRN; Protocol PRN Reason: Hypoglycemia Protocol Stop: 06/04/18 22:30 Glucose (Glucose 40%) 15 - 30 gm PO UD PRN; Protocol PRN Reason: Hypoglycemia Protocol Stop: 06/04/18 22:30 Glucose (Dex4 Glucose) 4 - 8 tabs PO UD PRN; Protocol PRN Reason: Hypoglycemia Protocol Stop: 06/04/18 22:30 Heparin Sodium (Porcine) (Heparin Sodium (Porcine)) 5,000 units SQ Q12 [facility] Stop: 06/05/18 08:59 Last Admin: 05/06/18 09:46 Dose: 5,000 units Heparin Sodium (Porcine) (Heparin Iv Bolus) 3,000 units IV TODAY@1100 [facility] Stop: 05/06/18 18:00 Levothyroxine Sodium 100 mcg/ (Syringe) 5 mls @ 2 mls/min IV DAILY@0900 [facility] Stop: 06/05/18 08:59 Last Admin: 05/06/18 09:49 Dose: 2 mls/min Hydrocortisone Sodium (Succinate 50 mg/ Syringe) 1 mls @ 4 mls/min IV Q6 [facility] Stop: 06/04/18 22:29 Last Admin: 05/06/18 12:52 Dose: 4 mls/min Pantoprazole Sodium 40 mg/ (Syringe) 10 mls @ 5 mls/min IV DAILY@1100 [facility] Stop: 06/05/18 10:59 Last Admin: 05/06/18 09:49 Dose: 5 mls/min Piperacillin Sod/Tazobactam (Sod 3.375 gm/ Dextrose) 115 mls @ 28.75 mls/hr IV Q12H [facility]; Protocol Stop: 05/13/18 09:59 Last Infusion: 05/06/18 14:10 Dose: Infused Norepinephrine Bitartrate 8 mg (/ Dextrose) 508 mls @ 32.15 mls/hr IV .[id number] PRN; Protocol PRN Reason: TITRATE Stop: 06/05/18 03:25 Last Titration: 05/06/18 08:47 Dose: 0.1 mcg/kg/min, 32.2 mls/hr Ipratropium [place] (Atrovent 0.02% 0.5mg/2.5ml) 0.5 mg INH Q4R [facility] Stop: 06/05/18 00:00 Last Admin: 05/06/18 15:45 Dose: 0.5 mg Levalbuterol HCl (Xopenex 1.25mg/0.5ml Neb) 1.25 mg INH Q4R [facility] Stop: 06/05/18 00:00 Last Admin: 05/06/18 15:45 Dose: 1.25 mg Midazolam HCl (Versed) 1 mg IV Q1H PRN PRN Reason: Agitation Stop: 06/05/18 00:26 Midazolam HCl (Versed) 4 mg IV ONCE PRN PRN Reason: procedure Stop: 05/06/18 18:00 Last Admin: 05/06/18 15:15 Dose: 4 mg Miscellaneous (Icu Protocol For Hyperglycemia) 1 ea N/A PRN PRN; Protocol PRN Reason: Hyperglycemia Protocol Stop: 05/07/18 22:30 Miscellaneous (Carbohydrates For Hypoglycemia) 15 - 30 gm PO UD PRN PRN Reason: Hypoglycemia Treatment Stop: 06/04/18 22:30 Miscellaneous Information (Consult) 1 ea N/A UD PRN PRN Reason: Consult Stop: 06/04/18 23:08 Miscellaneous Information (Consult) 1 ea N/A UD PRN PRN Reason: Consult Stop: 06/04/18 23:09 Vitamin D (Vitamin D3) 1,000 units PO DAILY [facility] Stop: 06/05/18 08:59 Last Admin: 05/06/18 09:38 Dose: Not Given Resident Activity Tracking Resident Involvement: Resident Care Provided Care Provided: Adult Hospital Medicine
--- NOTE | 2018-05-06 19:17 | Procedure Note ---
Procedure Note Date of Service May 06, 2018 Procedure date: Noted above Procedure: Central venous access Pre-procedure Diagnosis: Hypotension, sepsis need for vasoactive medications Post-procedure Diagnosis: same as above Prior to Procedure: Informed Consent: The risks, benefits, indications, potential complications, and alternatives were explained to the patient's son and informed consent obtained. Attending Staff: Connie Sims DO Student: Connie Abraham Skin Prep: Chlorhexidine Anesthesia: 3 mL 1% lidocaine without epinephrine The identity of the patient was confirmed and a bedside time out was performed. Description of Procedure: After sterile prep and sterile drape utilizing standard sterile technique the superficial skin of the right internal jugular area was anesthetized. The target vessel was identified and entered with an 18- gauge needle. Dark venous blood return was noted. A guidewire was inserted through the needle and into the vessel however it was only advanced 12 cm. The guidewire was repositioned x4 and each time it met resistance. An additional needle stick was obtained and again resistance was met. All further attempts at the right internal jugular approach was aborted Complications: None Estimated blood loss: Trace Patient tolerated the procedure well. Procedure Date: Noted above Procedure: Procedural Ultrasound Indication: Central venous access Attending: Connie Sims DO Student: Connie Abraham Artery visualized: Yes Vein visualized: Yes Compressible Vein: Yes Vein patent: Yes Guidewire or Short Catheter seen in vein prior to dilation: Yes Line confirmed in Vein with ultrasound: Yes Lung Sliding on side of attempt (if applicable): NA If no lung sliding or not obtained has CXR been ordered: Yes Impression: Successful central venous access placement Images obtained are saved for permanent record
--- NOTE | 2018-05-06 19:40 | Procedure Note ---
Procedure Note Date of Service May 06, 2018 Procedure date: Noted above Procedure: Central venous access Pre-procedure Diagnosis: Severe sepsis need for vasoactive medication Post-procedure Diagnosis: same as above Prior to Procedure: Informed Consent: The risks, benefits, indications, potential complications, and alternatives were explained to the patient's son and informed consent obtained. Attending Staff: Connie Sims DO Student:Paula Abraham Skin Prep: Chlorhexidine Anesthesia: 3 mL 1% lidocaine without epinephrine The identity of the patient was confirmed and a bedside time out was performed. Description of Procedure: After sterile prep and sterile drape utilizing standard sterile technique the superficial skin of the right femoral area was anesthetized. The target vessel was identified and entered with an 18-gauge needle. Dark venous blood return was noted. A guidewire was inserted through the needle and into the vessel. The needle was withdrawn and a skin juan josé was made. A tissue dilator was advanced via Seldinger technique and removed. A triple lumen catheter was inserted via Seldinger technique and the guidewire removed. All ports yane and flushed easily. A Biopatch was placed, and the catheter was secured via silk suture. A sterile dressing was then applied. Complications: None Estimated blood loss: Trace Patient tolerated the procedure well. Procedure Date: Noted above Procedure: Procedural Ultrasound Indication: Central venous access Attending: Connie Sims DO Student: Connie Abraham Artery visualized: Yes Vein visualized: Yes Compressible Vein: Yes Vein patent: Yes Guidewire or Short Catheter seen in vein prior to dilation: Yes Impression: Successful central venous access placement Images obtained are saved for permanent record
[2018-05-07] MEDS: HYDROCORTISONE SOD 50 MG in SYRINGE 0 ML IV SCH ×5 (00:32→23:22)
[2018-05-07] MEDS: fentaNYL citrate 100 MCG/2 ML VIAL IV PRN ×4 (02:09→19:18)
[2018-05-07] MEDS: MIDAZOLAM HCL 1 MG/ML 2ML VIAL IV PRN ×3 (02:10→23:21)
[2018-05-07] MEDS: LEVALBUTEROL 1.25MG/0.5ML NEB INH SCH ×6 (02:55→23:53)
[2018-05-07] MEDS: IPRATROPIUM BROMIDE NEB SOLN 0.02% 2.5 ML VIAL INH SCH ×6 (02:55→23:53)
[2018-05-07 04:30] LABS: Hematocrit (blood only) 37.5 % (37-47); Hemoglobin 12.1 g/dL (12.0-16.0); Mean Corpuscular Hgb Conc 32.3 g/dL (32-36); Mean Corpuscular Volume 98.4 fL (80-100); Mean Platelet Volume 10.3 fL (7.4-10.4); Platelet Count 137 K/uL (130-400); RDW Coefficient of Variation 14.9 % (11.5-14.5); RDW Standard Deviation 54.2 fL (36.4-46.3); Red Blood Count 3.81 M/uL (4.2-5.4); White Blood Count 12.19 K/uL (4.8-10.8)
[2018-05-07 04:45] LABS: Basophils # (auto) 0.01 K/uL (0-0.2); Basophils % (auto) 0.1 %; Immature Granulocytes # (auto) 0.01 K/uL (0.00-0.02); Immature Granulocytes % (auto) 0.1 %; Lymphocytes # (auto) 0.41 K/uL (1.2-3.4); Lymphocytes % (auto) 3.4 %; Monocytes % (auto) 3.3 %; Neutrophils # (auto) 11.36 K/uL (1.4-6.5); Neutrophils % (auto) 93.1 %; Toxic Vacuolation Occasional
[2018-05-07 05:02] LABS: BUN Creatinine Ratio 5.9 (10-20); Calcium 8.4 mg/dl (8.5-10.1); Creatinine Clr Calc Pharmacy 13.1 ml/min; Est GFR (African American) 10.6; Est GFR (Non-African American) 9.1; Magnesium 2.3 mg/dl (1.8-2.4); Phosphorus 7.1 mg/dl (2.5-4.9); Potassium 3.6 mmol/L (3.5-5.1)
[2018-05-07 05:41] LABS: iSTAT Arterial Blood Gas HCO3 31 meg/L (19-24); iSTAT Carbon Dioxide 33 mEq/l (24-31); iSTAT FiO2 60 %
[2018-05-07] MEDS: NOREPINEPHRINE BIT INJ 8 MG in DEXTROSE 5% 500 ML IV PRN ×2 (06:16→17:22)
[2018-05-07] MEDS ORDERED: VANCOMYCIN HCL 500 MG in SODIUM CHLORIDE 0.9% 250 ML IV SCH (07:00)
--- NOTE | 2018-05-07 07:22 | XRay Report ---
XR chest 1V portable CLINICAL HISTORY: f/u dyspnea COMPARISON STUDY: 05/06/2018 FINDINGS: Endotracheal tube 3 cm both rigoberto. Improving bilateral parenchymal infiltrative change. Un altered bipolar cardiac pacemaker. Prior median sternotomy. IMPRESSION: 1 per endotracheal tube in good position. 2. Nasogastric tube in good position. 3. Improving left hemithoracic infiltrative change. The above report was generated using voice recognition software. It may contain grammatical, syntax or spelling errors. Electronically signed by: Martin Ramos M.D. 05/07/2018 7:20 AM
[2018-05-07] MEDS: ASPIRIN 81 MG ECTAB PO SCH (09:55)
[2018-05-07] MEDS: HEPARIN SOD 5,000 UNIT/0.5 ML VIAL SQ SCH ×2 (10:16→21:09)
[2018-05-07] MEDS: PIPERACILLIN/TAZOBACTAM 3.375 GM in DEXTROSE 5% 100 ML IV SCH ×2 (10:16→21:08)
[2018-05-07] MEDS: EUCERIN CR 120 GM JAR EXT PRN (10:16)
[2018-05-07] MEDS: PANTOprazole 40 MG in SYRINGE 0 ML IV SCH (10:16)
[2018-05-07] MEDS: LEVOTHYROXINE SODIUM 100 MCG in SYRINGE 0 ML IV SCH (10:16)
[2018-05-07] MEDS: CHOLECALCIFEROL 1,000 UNITS TAB PO SCH (10:17)
[2018-05-07] MEDS: CALCIUM ACETATE 667 MG CAP PO SCH ×3 (10:17→21:08)
--- NOTE | 2018-05-07 10:52 | Family Medicine Progress Note ---
Date of Service May 07, 2018 Assessment & Plan (1) Altered mental status: Ms. Allen is a 52-year-old with a history of polycystic kidney disease, resulting in ESRD on dialysis, valvular heart disease s/p tricuspid and mitral valve repair, drug abuse, COPD, hyperlipidemia, systolic heart failure, prior endocarditis, neuropathy, hypothyroidism who presents to the emergency department due to altered mental status. Trial of BiPAP with concurrent administration of naloxone was attempted in the emergency department, however due to her worsening ABG, she was subsequently intubated and placed on a ventilator. - Differential for altered mental status includes secondary to infection, drug abuse, myxedema coma - AMS improving. Patient is awake and alert and able to understand commands -Patient is n.p.o., NG tube placed (2) History of drug abuse: -Urine drug screen positive for THC. Gabapentin level pending - pt has history of drug abuse in the past (3) Acute respiratory failure with hypoxia and hypercarbia: - chronically on 3.5 L NC O2 - currently intubated - Chest CT showed extensive aspiration w/edema vs. hemorrhage - on scheduled Xopenex, Atrovent, hydrocortisone. Concern for extensive aspiration and edema vs hemorrhage. - s/p bronchoscopy on 05/06 which showed tracheomalacia and excessive dynamic airway collapse - BAL cultures pending, preliminary results pending (4) COPD (chronic obstructive pulmonary disease): - as above (5) Aspiration pneumonia: - on zosyn (day 3) for aspiration pneumonia, vancomycin discontinued - bcx pending, preliminary results pending - Lactate negative, procal elevated at 1.95 (6) Acute on chronic systolic heart failure: -Unable to diurese as patient is anuric (7) Hypotension: -Recently currently hypotensive, requiring levophed drip as well as IV steroids -Central line in place -was on midodrine in outpatient setting (8) S/P mitral valve repair: (9) S/P placement of cardiac pacemaker: (10) S/P tricuspid valve repair: (11) Hypothyroidism: -TSH of 155, patient generally noncompliant with home medications -Treat with IV levothyroxine 100 mcg daily (12) End-stage renal disease (ESRD): -secondary to polycystic kidney disease -Follows with Dr. Hugo in the outpatient setting -Generally receives dialysis Sunday, Sunday, Sunday (13) Ventral hernia: -No evidence of strangulation as noted on CT abdomen and pelvis (14) Anemia: -Hemoglobin currently 12.1 - received procrit (15) Liver cirrhosis: -CT abdomen and pelvis suggestive of liver cirrhosis -Hepatitis B serology ordered and negative -Alk phos elevated, but AST and ALT normal -Hep C negative -consider HIV test once pt awake and able to consent -?secondary to cystic liver disease (16) Thrombocytopenia: -Platelet level low at 90 -> improved to 137 today -CT abdomen and pelvis shows splenomegaly, possibly contributing to platelet consumption -Continue to trend CBC CODE STATUS: Full DVT prophylaxis: heparin 5,000 SQ q12h Disposition: Remains in ICU Supervising Physician Co-Signing Physician Notes Patient seen and examined at the bedside with Dr. Walton. Agree with history , exam findings, assessment and plan of care as outlined by Dr. Walton. Changes and updates below. In brief, Ms. Allen is a 52 year old female with complex medical history including hypothyroidism, ESRD, valvular heart disease and drug abuse complicated by non-adherence admitted with altered mental status. She is intubated and sedated, although arousable to voice. She has soft restraints on. 1. acute resp failure secondary to aspiration pneumonia and sepsis. on vanc and zosyn. started levophed last night for BP support. intubated. management per critical care team. Pending bronch washing studies--culture, gram stain, cytology, AFB, fungal cx. 2. HFpEF. fluid overload, however anuric so likely will need to take fluid off with HD. 3. hypothyroid. TSH 155. IV levothyroxine 100mg. 4. ESRD. anuric. HD MWF. appreciate renal recs. 5. polycystic liver. evidence of fibrotic change, splenomegaly--check LFTs, Hep C, HIV. Appreciate CCM management. Subjective Ms. Allen is currently sedated and on a ventilator. She opens her eyes and respond to yes/no questions, and is able to follow commands. History and review of systems is limited. Physical Exam 2 Vital Signs (Past 24 Hours): Last Vital Signs Temp 37.3 C 05/07/18 00:01 Pulse 84 05/07/18 07:22 Resp 20 05/07/18 07:22 BP 124/73 05/07/18 06:01 Pulse Ox 100 05/07/18 07:22 Constitutional: cooperative, comfortable and + mechanically ventilated Respiratory: normal respiratory effort Auscultation: + diminished lung sounds (Coarse breath sounds bilaterally); no crackles Cardiovascular: RRR, no murmur, no edema (Pacemaker in place) Gastrointestinal (Abdomen): Percussion/Palpation: + abdomen tender (Tender over ventral hernia) and abdomen soft; no guarding and abdomen not rigid Skin: + nails dystrophic (toenails) dry skin over feet, w/scaling noted between toes Results & Data Laboratory Results Laboratory Results - last 24 hr 05/06/18 05/06/18 05/06/18 11:36 11:42 18:32 WBC RBC Hgb Hct MCV MCH MCHC RDW Std Deviation RDW Coeff of Ya Plt Count MPV Immature Gran % (Auto) Neut % (Auto) Lymph % (Auto) [place] % (Auto) Eos % (Auto) Baso % (Auto) Immature Gran # (Auto) Neut # (Auto) Lymph # (Auto) [place] # (Auto) Eos # (Auto) Baso # (Auto) Toxic Vacuolation Sample Site POC pH POC pCO2 POC pO2 POC HCO3 POC Total CO2 POC Base Excess POC ABG O2 Sat Jeb Test O2 Delivery Device POC O2 Rate Minute Ventilation POC FiO2 Tidal Volume PEEP Sodium Potassium Chloride Carbon Dioxide Anion Gap BUN Creatinine Est Cr Clr Drug Dosing Est GFR ( Amer) Est GFR (Non-Af Amer) BUN/Creatinine Ratio Glucose POC Glucose POC Glucose (other) 124 H 114 H Lactate Calcium Phosphorus Magnesium Urine Color Urine Appearance Urine pH Ur Specific [place] Urine Protein Urine Glucose (UA) Urine Ketones Urine Blood Urine Nitrite Urine Bilirubin Urine Urobilinogen Ur Leukocyte Esterase Urine WBC (Auto) Urine RBC (Auto) U Hyaline Cast (Auto) U Epithel Cells (Auto) Urine Bacteria (Auto) Ur Renal Epithelial Cell Urine Crystals Calcium Oxalate Crystal Uric Acid Crystals Triple Phos Crystals Other Crystals Amorphous Sediment Granular Casts Waxy Casts RBC Casts WBC Casts Other Casts Urine Mucus Urine Other Urine Trichomonas Urine Yeast Urine Sperm Ur Oval Fat Bodies Random Vancomycin 28.7 Urine Opiates Screen Ur Methadone, Qual Urine Barbiturates Ur Phencyclidine (PCP) U Amphetamin/Meth Scrn MDMA (Ecstasy) Screen U Benzodiazepines Scrn Ur Cocaine Metabolite U Marijuana (THC) Screen Hepatitis C Antibody 05/06/18 05/06/18 05/07/18 Unknown Unknown 00:37 WBC RBC Hgb Hct MCV MCH MCHC RDW Std Deviation RDW Coeff of Ya Plt Count MPV Immature Gran % (Auto) Neut % (Auto) Lymph % (Auto) [place] % (Auto) Eos % (Auto) Baso % (Auto) Immature Gran # (Auto) Neut # (Auto) Lymph # (Auto) [place] # (Auto) Eos # (Auto) Baso # (Auto) Toxic Vacuolation Sample Site POC pH POC pCO2 POC pO2 POC HCO3 POC Total CO2 POC Base Excess POC ABG O2 Sat Jeb Test O2 Delivery Device POC O2 Rate Minute Ventilation POC FiO2 Tidal Volume PEEP Sodium Potassium Chloride Carbon Dioxide Anion Gap BUN Creatinine Est Cr Clr Drug Dosing Est GFR ( Amer) Est GFR (Non-Af Amer) BUN/Creatinine Ratio Glucose POC Glucose 124 H POC Glucose (other) Lactate Calcium Phosphorus Magnesium Urine Color Cancelled Urine Appearance Cancelled Urine pH Cancelled Ur Specific [place] Cancelled Urine Protein Cancelled Urine Glucose (UA) Cancelled Urine Ketones Cancelled Urine Blood Cancelled Urine Nitrite Cancelled Urine Bilirubin Cancelled Urine Urobilinogen Cancelled Ur Leukocyte Esterase Cancelled Urine WBC (Auto) Cancelled Urine RBC (Auto) Cancelled U Hyaline Cast (Auto) Cancelled U Epithel Cells (Auto) Cancelled Urine Bacteria (Auto) Cancelled Ur Renal Epithelial Cell Cancelled Urine Crystals Cancelled Calcium Oxalate Crystal Cancelled Uric Acid Crystals Cancelled Triple Phos Crystals Cancelled Other Crystals Cancelled Amorphous Sediment Cancelled Granular Casts Cancelled Waxy Casts Cancelled RBC Casts Cancelled WBC Casts Cancelled Other Casts Cancelled Urine Mucus Cancelled Urine Other Cancelled Urine Trichomonas Cancelled Urine Yeast Cancelled Urine Sperm Cancelled Ur Oval Fat Bodies Cancelled Random Vancomycin Urine Opiates Screen Neg Ur Methadone, Qual Neg Urine Barbiturates Neg Ur Phencyclidine (PCP) Neg U Amphetamin/Meth Scrn Neg MDMA (Ecstasy) Screen Neg U Benzodiazepines Scrn Neg Ur Cocaine Metabolite Neg U Marijuana (THC) Screen Pos H Hepatitis C Antibody 05/07/18 05/07/18 05/07/18 04:05 04:05 04:05 WBC 12.19 H RBC 3.81 L Hgb 12.1 Hct 37.5 MCV 98.4 MCH 31.8 MCHC 32.3 RDW Std Deviation 54.2 H RDW Coeff of Ya 14.9 H Plt Count 137 D MPV 10.3 Immature Gran % (Auto) 0.1 Neut % (Auto) 93.1 Lymph % (Auto) 3.4 [place] % (Auto) 3.3 Eos % (Auto) 0.0 Baso % (Auto) 0.1 Immature Gran # (Auto) 0.01 Neut # (Auto) 11.36 H Lymph # (Auto) 0.41 L [place] # (Auto) 0.40 Eos # (Auto) 0.00 Baso # (Auto) 0.01 Toxic Vacuolation Occasional Sample Site POC pH POC pCO2 POC pO2 POC HCO3 POC Total CO2 POC Base Excess POC ABG O2 Sat Jeb Test O2 Delivery Device POC O2 Rate Minute Ventilation POC FiO2 Tidal Volume PEEP Sodium 128 L Potassium 3.6 D Chloride 89 L Carbon Dioxide 29 Anion Gap 10.0 BUN 30 H Creatinine 5.02 H* D Est Cr Clr Drug Dosing 13.1 Est GFR ( Amer) 10.6 Est GFR (Non-Af Amer) 9.1 BUN/Creatinine Ratio 5.9 L Glucose 146 H POC Glucose POC Glucose (other) Lactate Calcium 8.4 L Phosphorus 7.1 H Magnesium 2.3 Urine Color Urine Appearance Urine pH Ur Specific [place] Urine Protein Urine Glucose (UA) Urine Ketones Urine Blood Urine Nitrite Urine Bilirubin Urine Urobilinogen Ur Leukocyte Esterase Urine WBC (Auto) Urine RBC (Auto) U Hyaline Cast (Auto) U Epithel Cells (Auto) Urine Bacteria (Auto) Ur Renal Epithelial Cell Urine Crystals Calcium Oxalate Crystal Uric Acid Crystals Triple Phos Crystals Other Crystals Amorphous Sediment Granular Casts Waxy Casts RBC Casts WBC Casts Other Casts Urine Mucus Urine Other Urine Trichomonas Urine Yeast Urine Sperm Ur Oval Fat Bodies Random Vancomycin 17.8 Urine Opiates Screen Ur Methadone, Qual Urine Barbiturates Ur Phencyclidine (PCP) U Amphetamin/Meth Scrn MDMA (Ecstasy) Screen U Benzodiazepines Scrn Ur Cocaine Metabolite U Marijuana (THC) Screen Hepatitis C Antibody 05/07/18 05/07/18 05/07/18 04:05 05:27 09:50 WBC RBC Hgb Hct MCV MCH MCHC RDW Std Deviation RDW Coeff of Ya Plt Count MPV Immature Gran % (Auto) Neut % (Auto) Lymph % (Auto) [place] % (Auto) Eos % (Auto) Baso % (Auto) Immature Gran # (Auto) Neut # (Auto) Lymph # (Auto) [place] # (Auto) Eos # (Auto) Baso # (Auto) Toxic Vacuolation Sample Site Art Line POC pH 7.32 L POC pCO2 61 H POC pO2 113 H POC HCO3 31 H POC Total CO2 33 H POC Base Excess 5.0 H POC ABG O2 Sat 98.0 H Jeb Test NA O2 Delivery Device Ventilator POC O2 Rate 20 Minute Ventilation 8.3 POC FiO2 60 Tidal Volume 450 PEEP 10 Sodium Potassium Chloride Carbon Dioxide Anion Gap BUN Creatinine Est Cr Clr Drug Dosing Est GFR ( Amer) Est GFR (Non-Af Amer) BUN/Creatinine Ratio Glucose POC Glucose POC Glucose (other) Lactate 0.6 Calcium Phosphorus Magnesium Urine Color Urine Appearance Urine pH Ur Specific [place] Urine Protein Urine Glucose (UA) Urine Ketones Urine Blood Urine Nitrite Urine Bilirubin Urine Urobilinogen Ur Leukocyte Esterase Urine WBC (Auto) Urine RBC (Auto) U Hyaline Cast (Auto) U Epithel Cells (Auto) Urine Bacteria (Auto) Ur Renal Epithelial Cell Urine Crystals Calcium Oxalate Crystal Uric Acid Crystals Triple Phos Crystals Other Crystals Amorphous Sediment Granular Casts Waxy Casts RBC Casts WBC Casts Other Casts Urine Mucus Urine Other Urine Trichomonas Urine Yeast Urine Sperm Ur Oval Fat Bodies Random Vancomycin Urine Opiates Screen Ur Methadone, Qual Urine Barbiturates Ur Phencyclidine (PCP) U Amphetamin/Meth Scrn MDMA (Ecstasy) Screen U Benzodiazepines Scrn Ur Cocaine Metabolite U Marijuana (THC) Screen Hepatitis C Antibody Neg Medications Administered Current Inpatient Medications Aspirin (Aspirin Chew) 81 mg PO DAILY [facility] Stop: 06/05/18 08:59 Calcium Acetate (Phoslo) 1,334 mg PO TID [facility] Stop: 06/04/18 22:30 Last Admin: 05/07/18 10:17 Dose: Not Given Dextrose (Dextrose 50%) 25 - 50 ml IV UD PRN; Protocol PRN Reason: Hypoglycemia Protocol Stop: 06/04/18 22:30 Fentanyl Citrate (Fentanyl Citrate) 50 mcg IV Q2H PRN PRN Reason: Moderate Pain (4,5,6) Stop: 05/19/18 22:30 Last Admin: 05/07/18 06:10 Dose: 50 mcg Glucagon (Glucagen) 1 mg SQ UD PRN; Protocol PRN Reason: Hypoglycemia Protocol Stop: 06/04/18 22:30 Glucose (Glucose 40%) 15 - 30 gm PO UD PRN; Protocol PRN Reason: Hypoglycemia Protocol Stop: 06/04/18 22:30 Glucose (Dex4 Glucose) 4 - 8 tabs PO UD PRN; Protocol PRN Reason: Hypoglycemia Protocol Stop: 06/04/18 22:30 Heparin Sodium (Beef Lung) (Heparin Sod 10 Unit/Ml Flush) 5 ml FLUSH PRN PRN PRN Reason: Flush Stop: 06/06/18 02:16 Heparin Sodium (Porcine) (Heparin Sodium (Porcine)) 5,000 units SQ Q12 [facility] Stop: 06/05/18 08:59 Last Admin: 05/07/18 10:16 Dose: 5,000 units Levothyroxine Sodium 100 mcg/ (Syringe) 5 mls @ 2 mls/min IV DAILY@0900 [facility] Stop: 06/05/18 08:59 Last Admin: 05/07/18 10:16 Dose: 2 mls/min Hydrocortisone Sodium (Succinate 50 mg/ Syringe) 1 mls @ 4 mls/min IV Q6 [facility] Stop: 06/04/18 22:29 Last Admin: 05/07/18 06:10 Dose: 4 mls/min Pantoprazole Sodium 40 mg/ (Syringe) 10 mls @ 5 mls/min IV DAILY@1100 [facility] Stop: 06/05/18 10:59 Last Admin: 05/07/18 10:16 Dose: 5 mls/min Piperacillin Sod/Tazobactam (Sod 3.375 gm/ Dextrose) 115 mls @ 28.75 mls/hr IV Q12H [facility]; Protocol Stop: 05/13/18 09:59 Last Admin: 05/07/18 10:16 Dose: 28.8 mls/hr Norepinephrine Bitartrate 8 mg (/ Dextrose) 508 mls @ 51.45 mls/hr IV .Q9H53M PRN; Protocol PRN Reason: TITRATE Stop: 06/05/18 03:25 Last Titration: 05/07/18 06:51 Dose: 0.16 mcg/kg/min, 51.5 mls/hr Ipratropium [place] (Atrovent 0.02% 0.5mg/2.5ml) 0.5 mg INH Q4R [facility] Stop: 06/05/18 00:00 Last Admin: 05/07/18 07:20 Dose: 0.5 mg Levalbuterol HCl (Xopenex 1.25mg/0.5ml Neb) 1.25 mg INH Q4R [facility] Stop: 06/05/18 00:00 Last Admin: 05/07/18 07:22 Dose: 1.25 mg Midazolam HCl (Versed) 1 mg IV Q1H PRN PRN Reason: Agitation Stop: 06/05/18 00:26 Last Admin: 05/07/18 06:10 Dose: 1 mg Miscellaneous (Icu Protocol For Hyperglycemia) 1 ea N/A PRN PRN; Protocol PRN Reason: Hyperglycemia Protocol Stop: 05/07/18 22:30 Miscellaneous (Carbohydrates For Hypoglycemia) 15 - 30 gm PO UD PRN PRN Reason: Hypoglycemia Treatment Stop: 06/04/18 22:30 Miscellaneous Information (Consult) 1 ea N/A UD PRN PRN Reason: Consult Stop: 06/04/18 23:08 Multi-Ingredient Cream (Hydrocerin) 1 appln EXT BID PRN PRN Reason: dry skin Stop: 06/05/18 18:12 Last Admin: 05/07/18 10:16 Dose: 1 appln Vitamin D (Vitamin D3) 1,000 units PO DAILY [facility] Stop: 06/05/18 08:59 Last Admin: 05/07/18 10:17 Dose: Not Given Resident Activity Tracking Resident Involvement: Resident Care Provided Care Provided: Adult Hospital Medicine
[2018-05-07] MEDS ORDERED: SODIUM CHLORIDE 0.9% 1000ML 1,000 ML IV PRN (10:55)
[2018-05-07] MEDS ORDERED: HEPARIN SOD (PORCINE) 1000 UNIT/ML 10 ML VIAL IV ONE (11:30)
[2018-05-07] MEDS ORDERED: IRON SUCROSE 100 MG in SYRINGE 0 ML IV ONE (11:30)
--- NOTE | 2018-05-07 11:37 | Progress Note ---
DATE: 05/07/2018 RENAL PROGRESS NOTE SUBJECTIVE: Ms. Allen remains intubated. She did have a bronchoscopy done yesterday. Thus far, cultures obtained from the procedure appear to be negative. She did have some inflammatory and hyperemic changes noted in the bronchial tree. She received her dialysis treatment yesterday and seemed to tolerate that reasonably well. As noted, she remains intubated and on mechanical ventilation with CPAP. She says that she has some pain, but that is mostly related to her tube. She denies having any abdominal pain related to her ventral hernia. She has no definite chest pain. She does not feel short of breath at rest. OBJECTIVE: GENERAL: When seen by me, she was awake and alert and answering questions by shaking or nodding her head. VITAL SIGNS: Her blood pressure was 124/73, her pulse 84 and regular, respiratory rate 20, her pulse ox 100% on CPAP with mechanical ventilation and an FiO2 of 50%. Her temperature is 37.3. SKIN: Her skin shows normal skin turgor. She has some dry scaly changes on her distal lower extremities. She has scars from prior surgical procedures. That includes a scar beneath the distal right clavicle from her pacemaker which is palpable at that site. She has a left upper arm AV fistula which seems to function well. She has markedly dystrophic toenail changes. There is no obvious rash or infiltrative skin disease. LYMPHATICS: Show no palpable lymphadenopathy. HEAD: Grossly normal. EYES: Grossly normal. Extraocular movements are intact. Her conjunctivae are not icteric. I did not examine the fundi. NOSE, MOUTH AND THROAT: Show her to be intubated. Oral mucous membranes appear to be moist, but the exam is difficult because of the endotracheal tube. NECK: Supple. I see no definite jugular venous distention. I hear no carotid bruit. There is no thyromegaly. CHEST: Clear to auscultation. I hear no wheezes, rales or rhonchi. Pacemaker is palpable beneath the distal right clavicle. CARDIAC: Shows a regular rhythm. She has a grade 2-3/6 systolic murmur at the base radiating along the left sternal border to the apex. It also radiates toward the neck. I do not hear a diastolic murmur. I hear no gallops or rubs. ABDOMEN: Her abdomen shows the palpable ventral hernia which does reduce easily, but is slightly tender. There is a questionable fluid wave present. I cannot feel her cystic kidneys because of the ascites and abdominal tenderness. EXTREMITIES: Show no cyanosis, clubbing or peripheral edema. There is a left upper arm AV fistula. NEUROLOGIC: Her neurologic exam shows her to be awake and alert and answering questions appropriately. PERTINENT LABORATORY WORK: From today shows a white count of 12,119 with 93.1% neutrophils, 3.4% lymphocytes, 3.3% monocytes, no eosinophils and 0.1% basophils. Her hemoglobin is 12.1 with a hematocrit of 37.5. Red cell indices are normal. Her platelet count is 137,000. Her blood gases from today show pH of 7.32. Her pCO2 is 61 and a pO2 is 113. Oxygen saturation is 98%. Her clinical chemistries from today show a sodium of 128 mmol/L, potassium 3.6 mmol/L, chloride is 89 mmol/L, and CO2 content 29 mmol/L. Her anion gap is 10. Her BUN is 30 and her creatinine is 5.02. A random blood sugar is 148, her serum calcium 8.4, her phosphate 7.1 and her magnesium 2.3. A chest x-ray done today shows evidence of her endotracheal tube to be in good position as is the nasogastric tube. She has some improvement in the infiltrative change noted in the left hemithorax. She has improving bilateral parenchymal infiltrative changes as well. She did have screening for opiates and benzodiazepines amongst other things. She did have a positive urinary screen for marijuana. However, the negative screens for opiates and benzodiazepine are probably in question simply because she has a markedly reduced renal function and those things might not be seen in her urine. Frankly I am surprised that the marijuana was picked up in her urine. ASSESSMENT: Significantly improved. Seems to be aerating better. Chest x-ray from the standpoint of heart failure and infiltrates are improved. Improvement as she has done in the past with supportive care. PLAN: Discontinue her endotracheal tube per the tumbling machine operator. We will plan on hemodialysis again tomorrow. No other intervention is recommended, although I would check another TSH now that she is getting levothyroxine.
[2018-05-07] MEDS: ASCORBIC ACID 1,500 MG, THIAMINE HCL 100 MG in 0.9 % SODIUM CHLORIDE 100 ML IV SCH ×3 (12:35→23:21)
[2018-05-07] MEDS: ASPIRIN 81 MG CHEW PO SCH (12:35)
--- NOTE | 2018-05-07 15:22 | Critical Care Progress Note ---
Date of Service May 07, 2018 Assessment & Plan (1) Altered mental status: 52-year-old female was admitted to the ICU on 05 May 2018 for weakness /confusion found to be in acute respiratory and heart failure. 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 Initially obtunded, but now responds to commands. CT head non-acute. PMH abuse of opiates and benzos. Patient was ordered fentanyl and Versed by healthcare providers. UDS positive for THC. Gabapentin level pending. Getting fentanyl prn. Pulm: Acute respiratory failure (ph 7.06) with hypoxia and hypercapnia. PMH COPD, at home is on 3.5 L NC O2. intubated. On scheduled Xopenex, Atrovent, hydrocortisone. Concern for extensive aspiration and edema vs hemorrhage. Noted tracheomalacia and excessive dynamic airway collapse on bronch. CVS: Acute on chronic systolic heart failure. Hypotensive, still requiring norepi drip. Previously on midodrine. PSH tricuspid and mitral valve repairs. echo noted EF 50-55%, grade II diastolic failure. Paced rhythm. ID: Afebrile, normal WBC. Elevated procalcitonin (may be renal-related). Likely aspiration PNA seen on CT chest. empirically started Zosyn. BCx NGTD. UCx pending. Lactate negative. - Stopping empiric vancomycin. Endo: Admit TSH 155 and PMH hypothyroidism (likely non-compliant with home meds) . Here started on levothyroxine. Admit HbA1c 5.4. Renal/Lytes: ESRD (Nephro = Dr. Hugo as outpatient), normal dialysis MWF ( last ). Admit Na 131, down to 128, managed with dialysis. GI: See extensive CT a/p findings. Chronic ventral hernia. NPO while intubated , holding TF while on vasopressors. On pantoprazole. Heme: Admit Hb 12.8, down to 10.4 (similar to September 2017), stable. On Procrit and iron. Monitoring. DVT prophy: Heparin subq. Lines: Right arterial line. PIV. Right brachial endurance catheter. Right femoral TLC. Code status: Full code PT/OT: Deferred Disposition: Critically ill. Admitted to ICU. (2) History of drug abuse: (3) Acute respiratory failure with hypoxia and hypercarbia: (4) COPD (chronic obstructive pulmonary disease): (5) Respiratory failure: (6) Aspiration pneumonia: (7) Acute on chronic systolic heart failure: (8) Hypotension: (9) S/P mitral valve repair: (10) S/P placement of cardiac pacemaker: (11) S/P tricuspid valve repair: (12) Hypothyroidism: (13) End-stage renal disease (ESRD): (14) Hyponatremia: (15) Ventral hernia: (16) Anemia: Supervising Physician Co-Signing Physician Notes Dr. Betzaida Gonzalez was resident physician during care of patient. I separately evaluated patient for woodard portions of the history and the exam. I was present during the critical portion of medical decision making, and I discussed the case with the resident. I generally agree with the findings and plan. Patient was able to successfully be extubated today. She is still requiring significant vasoactive medication administration at this time. Hopefully will be able to wean that off. Continue with antibiotics for pneumonia. She is at risk for a multidrug-resistant organism. Patient was discussed in multidisciplinary rounds I have personally spent 35 minutes of critical care time in the direct management of this patient. This is a life/limb threatening event. This includes time spent evaluating patient, direct bedside care, chart review, placing orders, interpretation of diagnostic studies, discussion with consultants, patient, and/or family members regarding treatment decisions, as well as other required patient management activities. This time is exclusive of all separately billable procedures, and teaching time and separate from and in addition to any other critical care service time. Subjective Found patient resting comfortably in bed. There is series of yes/no questions, she says that her throat feels sore but otherwise she denies any particular pains elsewhere or apparent concerns. Physical Exam 2 Vital Signs (Past 24 Hours): Last Vital Signs Temp 36.9 C 05/07/18 08:01 Pulse 89 05/07/18 14:03 Resp 23 05/07/18 14:03 BP 124/67 05/07/18 14:01 Pulse Ox 99 05/07/18 14:03 Physical Exam: General Appearance: Awake, alert, nods head to answer questions, appears in NAD. CV: +S1S2 RRR, no murmur. Pacemaker. Pulm: Coarse breath sounds throughout. Intubated. Abdomen: +BS, soft, non-tender, non-distended. Positive ventral hernia. Extremities: No pedal edema. Neuro: No gross neuro deficits, though patient remains intubated. Results & Data Laboratory Results 05/07/18 05/07/18 05/07/18 Range/Units 09:50 05:27 04:05 WBC (4.8-10.8) K/uL RBC (4.2-5.4) M/uL Hgb (12.0-16.0) g/dL Hct (37-47) % MCV (80-100) fL MCH (25-34) pg MCHC (32-36) g/dL RDW Std Deviation (36.4-46.3) fL RDW Coeff of Ya (11.5-14.5) % Plt Count (130-400) K/uL MPV (7.4-10.4) fL Immature Gran % (Auto) % Neut % (Auto) % Lymph % (Auto) % [place] % (Auto) % Eos % (Auto) % Baso % (Auto) % Immature Gran # (Auto) (0.00-0.02) K/uL Neut # (Auto) (1.4-6.5) K/uL Lymph # (Auto) (1.2-3.4) K/uL [place] # (Auto) (0.11-0.59) K/uL Eos # (Auto) (0-0.5) K/uL Baso # (Auto) (0-0.2) K/uL Toxic Vacuolation Sample Site Art Line POC pH 7.32 L (7.35-7.45) POC pCO2 61 H (35-46) mmHg POC pO2 113 H (80-95) mmHg POC HCO3 31 H (19-24) tonio/L POC Total CO2 33 H (24-31) mEq/l POC Base Excess 5.0 H (-9-1.8) tonio/L POC ABG O2 Sat 98.0 H (90-95) % Jeb Test NA O2 Delivery Device Ventilator POC O2 Rate 20 Minute Ventilation 8.3 POC FiO2 60 % Tidal Volume 450 PEEP 10 Sodium (136-145) mmol/L Potassium (3.5-5.1) mmol/L Chloride (98-107) mmol/L Carbon Dioxide (21-32) mmol/L Anion Gap (3-11) BUN (7-18) mg/dl Creatinine (0.6-1.2) mg/dl Est Cr Clr Drug Dosing ml/min Est GFR ( Amer) Est GFR (Non-Af Amer) BUN/Creatinine Ratio (10-20) Glucose (70-99) mg/dl POC Glucose (70-99) POC Glucose (other) (70-99) mg/dl Lactate 0.6 (0.4-2.0) mmol/L Calcium (8.5-10.1) mg/dl Phosphorus (2.5-4.9) mg/dl Magnesium (1.8-2.4) mg/dl Random Vancomycin mcg/ml Hepatitis C Antibody Neg (Neg) 05/07/18 05/07/18 05/07/18 Range/Units 04:05 04:05 04:05 WBC 12.19 H (4.8-10.8) K/uL RBC 3.81 L (4.2-5.4) M/uL Hgb 12.1 (12.0-16.0) g/dL Hct 37.5 (37-47) % MCV 98.4 (80-100) fL MCH 31.8 (25-34) pg MCHC 32.3 (32-36) g/dL RDW Std Deviation 54.2 H (36.4-46.3) fL RDW Coeff of Ya 14.9 H (11.5-14.5) % Plt Count 137 D (130-400) K/uL MPV 10.3 (7.4-10.4) fL Immature Gran % (Auto) 0.1 % Neut % (Auto) 93.1 % Lymph % (Auto) 3.4 % [place] % (Auto) 3.3 % Eos % (Auto) 0.0 % Baso % (Auto) 0.1 % Immature Gran # (Auto) 0.01 (0.00-0.02) K/uL Neut # (Auto) 11.36 H (1.4-6.5) K/uL Lymph # (Auto) 0.41 L (1.2-3.4) K/uL [place] # (Auto) 0.40 (0.11-0.59) K/uL Eos # (Auto) 0.00 (0-0.5) K/uL Baso # (Auto) 0.01 (0-0.2) K/uL Toxic Vacuolation Occasional Sample Site POC pH (7.35-7.45) POC pCO2 (35-46) mmHg POC pO2 (80-95) mmHg POC HCO3 (19-24) tonio/L POC Total CO2 (24-31) mEq/l POC Base Excess (-9-1.8) tonio/L POC ABG O2 Sat (90-95) % Jeb Test O2 Delivery Device POC O2 Rate Minute Ventilation POC FiO2 % Tidal Volume PEEP Sodium 128 L (136-145) mmol/L Potassium 3.6 D (3.5-5.1) mmol/L Chloride 89 L (98-107) mmol/L Carbon Dioxide 29 (21-32) mmol/L Anion Gap 10.0 (3-11) BUN 30 H (7-18) mg/dl Creatinine 5.02 H* D (0.6-1.2) mg/dl Est Cr Clr Drug Dosing 13.1 ml/min Est GFR ( Amer) 10.6 Est GFR (Non-Af Amer) 9.1 BUN/Creatinine Ratio 5.9 L (10-20) Glucose 146 H (70-99) mg/dl POC Glucose (70-99) POC Glucose (other) (70-99) mg/dl Lactate (0.4-2.0) mmol/L Calcium 8.4 L (8.5-10.1) mg/dl Phosphorus 7.1 H (2.5-4.9) mg/dl Magnesium 2.3 (1.8-2.4) mg/dl Random Vancomycin 17.8 mcg/ml Hepatitis C Antibody (Neg) 05/07/18 05/06/18 Range/Units 00:37 18:32 WBC (4.8-10.8) K/uL RBC (4.2-5.4) M/uL Hgb (12.0-16.0) g/dL Hct (37-47) % MCV (80-100) fL MCH (25-34) pg MCHC (32-36) g/dL RDW Std Deviation (36.4-46.3) fL RDW Coeff of Ya (11.5-14.5) % Plt Count (130-400) K/uL MPV (7.4-10.4) fL Immature Gran % (Auto) % Neut % (Auto) % Lymph % (Auto) % [place] % (Auto) % Eos % (Auto) % Baso % (Auto) % Immature Gran # (Auto) (0.00-0.02) K/uL Neut # (Auto) (1.4-6.5) K/uL Lymph # (Auto) (1.2-3.4) K/uL [place] # (Auto) (0.11-0.59) K/uL Eos # (Auto) (0-0.5) K/uL Baso # (Auto) (0-0.2) K/uL Toxic Vacuolation Sample Site POC pH (7.35-7.45) POC pCO2 (35-46) mmHg POC pO2 (80-95) mmHg POC HCO3 (19-24) tonio/L POC Total CO2 (24-31) mEq/l POC Base Excess (-9-1.8) tonio/L POC ABG O2 Sat (90-95) % Jeb Test O2 Delivery Device POC O2 Rate Minute Ventilation POC FiO2 % Tidal Volume PEEP Sodium (136-145) mmol/L Potassium (3.5-5.1) mmol/L Chloride (98-107) mmol/L Carbon Dioxide (21-32) mmol/L Anion Gap (3-11) BUN (7-18) mg/dl Creatinine (0.6-1.2) mg/dl Est Cr Clr Drug Dosing ml/min Est GFR ( Amer) Est GFR (Non-Af Amer) BUN/Creatinine Ratio (10-20) Glucose (70-99) mg/dl POC Glucose 124 H (70-99) POC Glucose (other) 114 H (70-99) mg/dl Lactate (0.4-2.0) mmol/L Calcium (8.5-10.1) mg/dl Phosphorus (2.5-4.9) mg/dl Magnesium (1.8-2.4) mg/dl Random Vancomycin mcg/ml Hepatitis C Antibody (Neg) Medications Administered Current Inpatient Medications Aspirin (Aspirin Chew) 81 mg PO DAILY [place] Stop: 06/05/18 08:59 Last Admin: 05/07/18 12:35 Dose: 81 mg Calcium Acetate (Phoslo) 1,334 mg PO TID [facility] Stop: 06/04/18 22:30 Last Admin: 05/07/18 13:05 Dose: Not Given Dextrose (Dextrose 50%) 25 - 50 ml IV UD PRN; Protocol PRN Reason: Hypoglycemia Protocol Stop: 06/04/18 22:30 Fentanyl Citrate (Fentanyl Citrate) 50 mcg IV Q2H PRN PRN Reason: Moderate Pain (4,5,6) Stop: 05/19/18 22:30 Last Admin: 05/07/18 13:32 Dose: 50 mcg Glucagon (Glucagen) 1 mg SQ UD PRN; Protocol PRN Reason: Hypoglycemia Protocol Stop: 06/04/18 22:30 Glucose (Glucose 40%) 15 - 30 gm PO UD PRN; Protocol PRN Reason: Hypoglycemia Protocol Stop: 06/04/18 22:30 Glucose (Dex4 Glucose) 4 - 8 tabs PO UD PRN; Protocol PRN Reason: Hypoglycemia Protocol Stop: 06/04/18 22:30 Heparin Sodium (Beef Lung) (Heparin Sod 10 Unit/Ml Flush) 5 ml FLUSH PRN PRN PRN Reason: Flush Stop: 06/06/18 02:16 Heparin Sodium (Porcine) (Heparin Sodium (Porcine)) 5,000 units SQ Q12 [facility] Stop: 06/05/18 08:59 Last Admin: 05/07/18 10:16 Dose: 5,000 units Heparin Sodium (Porcine) (Heparin Iv Bolus) 3,000 units IV TODAY@0800 [facility] Stop: 05/08/18 16:00 Levothyroxine Sodium 100 mcg/ (Syringe) 5 mls @ 2 mls/min IV DAILY@0900 [facility] Stop: 06/05/18 08:59 Last Admin: 05/07/18 10:16 Dose: 2 mls/min Hydrocortisone Sodium (Succinate 50 mg/ Syringe) 1 mls @ 4 mls/min IV Q6 [facility] Stop: 06/04/18 22:29 Last Admin: 05/07/18 12:34 Dose: 4 mls/min Pantoprazole Sodium 40 mg/ (Syringe) 10 mls @ 5 mls/min IV DAILY@1100 [facility] Stop: 06/05/18 10:59 Last Admin: 05/07/18 10:16 Dose: 5 mls/min Piperacillin Sod/Tazobactam (Sod 3.375 gm/ Dextrose) 115 mls @ 28.75 mls/hr IV Q12H [facility]; Protocol Stop: 05/13/18 09:59 Last Infusion: 05/07/18 14:17 Dose: Infused Norepinephrine Bitartrate 8 mg (/ Dextrose) 508 mls @ 48.23 mls/hr IV .[id number] PRN; Protocol PRN Reason: TITRATE Stop: 06/05/18 03:25 Last Titration: 05/07/18 10:00 Dose: 0.15 mcg/kg/min, 48.2 mls/hr Sodium Chloride (Nss 1000ml) 1,000 mls @ 0 mls/hr IV .Q0M PRN PRN Reason: For Hemodialysis Use ONLY Stop: 05/07/18 16:54 Ascorbic Acid 1,500 mg/Thiamine HCl 100 mg/ Sodium Chloride 104 mls @ 207 mls/ hr IV Q6H [facility] Stop: 05/09/18 06:31 Last Infusion: 05/07/18 13:04 Dose: Infused Iron Sucrose 100 mg/ Syringe 5 mls @ 1 mls/min IV TODAY@0800 [facility] Stop: 05/08/18 16:[address] (Atrovent 0.02% 0.5mg/2.5ml) 0.5 mg INH Q4R [facility] Stop: 06/05/18 00:00 Last Admin: 05/07/18 11:43 Dose: 0.5 mg Levalbuterol HCl (Xopenex 1.25mg/0.5ml Neb) 1.25 mg INH Q4R [facility] Stop: 06/05/18 00:00 Last Admin: 05/07/18 11:44 Dose: 1.25 mg Midazolam HCl (Versed) 1 mg IV Q1H PRN PRN Reason: Agitation Stop: 06/05/18 00:26 Last Admin: 05/07/18 06:10 Dose: 1 mg Miscellaneous (Icu Protocol For Hyperglycemia) 1 ea N/A PRN PRN; Protocol PRN Reason: Hyperglycemia Protocol Stop: 05/07/18 22:30 Miscellaneous (Carbohydrates For Hypoglycemia) 15 - 30 gm PO UD PRN PRN Reason: Hypoglycemia Treatment Stop: 06/04/18 22:30 Miscellaneous Information (Consult) 1 ea N/A UD PRN PRN Reason: Consult Stop: 06/04/18 23:08 Multi-Ingredient Cream (Hydrocerin) 1 appln EXT BID PRN PRN Reason: dry skin Stop: 02/27/19 18:12 Last Admin: 05/07/18 10:16 Dose: 1 appln Vitamin D (Vitamin D3) 1,000 units PO DAILY [facility] Stop: 06/05/18 08:59 Last Admin: 05/07/18 10:17 Dose: Not Given Resident Activity Tracking Resident Involvement: Resident Care Provided Care Provided: Adult Hospital Medicine
[2018-05-08] MEDS: fentaNYL citrate 100 MCG/2 ML VIAL IV PRN (02:59)
[2018-05-08] MEDS: NOREPINEPHRINE BIT INJ 8 MG in DEXTROSE 5% 500 ML IV PRN (03:16)
[2018-05-08] MEDS: IPRATROPIUM BROMIDE NEB SOLN 0.02% 2.5 ML VIAL INH SCH ×2 (04:59→09:17)
[2018-05-08 05:00] LABS: Hematocrit (blood only) 34.5 % (37-47); Hemoglobin 11.6 g/dL (12.0-16.0); Immature Granulocytes # (auto) 0.02 K/uL (0.00-0.02); Immature Granulocytes % (auto) 0.2 %; Lymphocytes # (auto) 0.64 K/uL (1.2-3.4); Lymphocytes % (auto) 6.9 %; Mean Corpuscular Hgb Conc 33.6 g/dL (32-36); Mean Corpuscular Volume 95.6 fL (80-100); Mean Platelet Volume 10.2 fL (7.4-10.4); Monocytes # (auto) 0.51 K/uL (0.11-0.59); Monocytes % (auto) 5.5 %; Neutrophils # (auto) 8.04 K/uL (1.4-6.5); Neutrophils % (auto) 87.4 %; Platelet Count 134 K/uL (130-400); RDW Coefficient of Variation 14.8 % (11.5-14.5); RDW Standard Deviation 52.1 fL (36.4-46.3); Red Blood Count 3.61 M/uL (4.2-5.4); White Blood Count 9.21 K/uL (4.8-10.8)
[2018-05-08] MEDS: LEVALBUTEROL 1.25MG/0.5ML NEB INH SCH ×2 (05:00→09:17)
[2018-05-08] MEDS: ASCORBIC ACID 1,500 MG, THIAMINE HCL 100 MG in 0.9 % SODIUM CHLORIDE 100 ML IV SCH ×3 (05:48→18:31)
[2018-05-08] MEDS: HYDROCORTISONE SOD 50 MG in SYRINGE 0 ML IV SCH ×3 (05:48→18:32)
[2018-05-08 05:52] LABS: Calcium 8.2 mg/dl (8.5-10.1); Creatinine Clr Calc Pharmacy 10.2 ml/min; Est GFR (African American) 7.9; Est GFR (Non-African American) 6.9; Magnesium 2.3 mg/dl (1.8-2.4); Phosphorus 7.8 mg/dl (2.5-4.9); Potassium 3.9 mmol/L (3.5-5.1)
--- NOTE | 2018-05-08 07:45 | XRay Report ---
XR chest 1V portable CLINICAL HISTORY: Respiratory failure COMPARISON STUDY: 05/07/2018 FINDINGS: There are postsurgical changes of a midline sternotomy and valvular replacement. There is a right subclavian dual-chamber central venous pacemaker. There is an endotracheal tube positioned 24 mm above the rigoberto. There is a nasogastric tube which passes into the stomach. There are persistent bilateral pulmonary airspace opacities. Peripherally calcified vascular structures are visualized wit hin the left upper arm.[ There is elevation of the right hemidiaphragm. IMPRESSION: 1. No significant change. Persistent bilateral pulmonary airspace opacities. Electronically signed by: Jude Melo M.D. 05/08/2018 7:44 AM
[2018-05-08] MEDS ORDERED: IRON SUCROSE 100 MG in SYRINGE 0 ML IV SCH (08:00)
[2018-05-08] MEDS ORDERED: HEPARIN SOD (PORCINE) 1000 UNIT/ML 10 ML VIAL IV SCH (08:00)
[2018-05-08] MEDS ORDERED: LIDOCAINE/PRILOCAINE 2.5% EA CRM EXT ONE (08:31)
[2018-05-08] MEDS: CALCIUM ACETATE 667 MG CAP PO SCH ×3 (08:39→20:43)
[2018-05-08] MEDS: PANTOprazole 40 MG in SYRINGE 0 ML IV SCH (08:40)
[2018-05-08] MEDS: LEVOTHYROXINE SODIUM 100 MCG in SYRINGE 0 ML IV SCH (08:40)
[2018-05-08] MEDS: CHOLECALCIFEROL 1,000 UNITS TAB PO SCH (08:40)
[2018-05-08] MEDS: ASPIRIN 81 MG CHEW PO SCH (08:40)
[2018-05-08] MEDS: HEPARIN SOD 5,000 UNIT/0.5 ML VIAL SQ SCH ×2 (08:41→20:43)
--- NOTE | 2018-05-08 08:41 | Family Medicine Progress Note ---
Date of Service May 08, 2018 Assessment & Plan (1) Altered mental status: Ms. Allen is a 52-year-old with a history of polycystic kidney disease, resulting in ESRD on dialysis, valvular heart disease s/p tricuspid and mitral valve repair, drug abuse, COPD, hyperlipidemia, systolic heart failure, prior endocarditis, neuropathy, hypothyroidism who presents to the emergency department due to altered mental status. Trial of BiPAP with concurrent administration of naloxone was attempted in the emergency department, however due to her worsening ABG, she was subsequently intubated and placed on a ventilator. - Differential for altered mental status includes secondary to infection, drug abuse, myxedema coma - AMS has resolved. Patient is awake, alert and answers questions appropriately (2) History of drug abuse: - Urine drug screen positive for THC. Gabapentin level elevated at 20. - Likely contributed to prior altered mental status - pt has history of drug abuse in the past (3) Acute respiratory failure with hypoxia and hypercarbia: - chronically on 3.5 L NC O2 - Patient was able to be extubated today, and is saturating well with oxygen via nasal cannula - Chest CT showed extensive aspiration w/edema vs. hemorrhage - on scheduled Xopenex, Atrovent, hydrocortisone. - s/p bronchoscopy on 05/06 which showed tracheomalacia and excessive dynamic airway collapse (4) COPD (chronic obstructive pulmonary disease): - as above (5) Aspiration pneumonia: - on zosyn (day 3) for aspiration pneumonia - BAL and bcx preliminary results negative (6) Acute on chronic systolic heart failure: -Unable to diurese as patient is anuric -Will undergo dialysis today, with the goal of removing 3 L of fluid (7) Hypotension: -currently hypotensive, requiring levophed drip as well as IV steroids -Aim to wean off levophed -Central line in place -was on midodrine in outpatient setting (8) S/P mitral valve repair: (9) S/P placement of cardiac pacemaker: (10) S/P tricuspid valve repair: (11) Hypothyroidism: -TSH of 155, patient generally noncompliant with home medications -Treat with IV levothyroxine 100 mcg daily -Recheck TSH with labs tomorrow (12) End-stage renal disease (ESRD): -secondary to polycystic kidney disease -Follows with Dr. 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 Walton. Agree with history , exam findings, assessment and plan of care as outlined by Dr. Walton. Changes and updates below. In brief, Ms. Allen is a 52 year old female with complex medical history including hypothyroidism, ESRD, valvular heart disease and drug abuse complicated by non-adherence admitted with altered mental status. VSS and labs reviewed. Extubated. Conversational. Coughing but feels breathing has improved. Reports some abd pain around her hernia, but not any worse than usual for her. 1. acute resp failure secondary to aspiration pneumonia and sepsis. Weaned to 3L NC. On vanc and zosyn. Still requiring pressor support. Cont with nebs and hydrocortisone stress steroids. Bronch washings: few yeast on smear, no AFB, light normal floraAppreciate critical care team management. 2. HFpEF. fluid overload, however anuric so likely will need to take fluid off with HD. 3. hypothyroid. TSH 155. IV levothyroxine 100mg. Recheck TSH. 4. ESRD. anuric. HD MWF. appreciate renal recs. 5. polycystic liver. evidence of fibrotic change, splenomegaly. Appreciate CCM management. Subjective Ms. Allen reports that she remains with abdominal pain, which she states is a 7 out of 10. She states that she has had this pain for a number of years, and that it is not any worse than usual. She reports that she feels her breathing is improved, however she remains with a productive cough. She has no other complaints today. Constitutional: + fatigue; no fever Respiratory: + cough Cardiovascular: no chest pain Gastrointestinal: + abdominal pain; no nausea and no vomiting Physical Exam 2 Vital Signs (Past 24 Hours): Last Vital Signs Temp 37.3 C 05/08/18 04:00 Pulse 86 05/08/18 07:14 Resp 21 05/08/18 07:50 BP 103/64 05/08/18 06:01 Pulse Ox 98 05/08/18 07:14 Constitutional: cooperative and comfortable Respiratory: normal respiratory effort Auscultation: + diminished lung sounds (Coarse breath sounds over bilateral lung bases); no crackles Cardiovascular: RRR, no murmur, no edema (Pacemaker in place) Gastrointestinal (Abdomen): Percussion/Palpation: + abdomen tender (Tender over ventral hernia) and abdomen soft; no guarding and abdomen not rigid Results & Data Laboratory Results Laboratory Results - last 24 hr 05/06/18 05/07/18 05/08/18 10:43 17:29 04:39 WBC 9.21 RBC 3.61 L Hgb 11.6 L Hct 34.5 L MCV 95.6 MCH 32.1 MCHC 33.6 RDW Std Deviation 52.1 H RDW Coeff of Ya 14.8 H Plt Count 134 MPV 10.2 Immature Gran % (Auto) 0.2 Neut % (Auto) 87.4 Lymph % (Auto) 6.9 [place] % (Auto) 5.5 Eos % (Auto) 0.0 Baso % (Auto) 0.0 Immature Gran # (Auto) 0.02 Neut # (Auto) 8.04 H Lymph # (Auto) 0.64 L [place] # (Auto) 0.51 Eos # (Auto) 0.00 Baso # (Auto) 0.00 Sodium Potassium Chloride Carbon Dioxide Anion Gap BUN Creatinine Est Cr Clr Drug Dosing Est GFR ( Amer) Est GFR (Non-Af Amer) BUN/Creatinine Ratio Glucose POC Glucose POC Glucose (other) 122 H Lactate Calcium Phosphorus Magnesium Gabapentin 20.0 05/08/18 05/08/18 05/08/18 04:39 08:37 13:59 WBC RBC Hgb Hct MCV MCH MCHC RDW Std Deviation RDW Coeff of Ya Plt Count MPV Immature Gran % (Auto) Neut % (Auto) Lymph % (Auto) [place] % (Auto) Eos % (Auto) Baso % (Auto) Immature Gran # (Auto) Neut # (Auto) Lymph # (Auto) [place] # (Auto) Eos # (Auto) Baso # (Auto) Sodium 123 L Potassium 3.9 Chloride 85 L Carbon Dioxide 25 Anion Gap 13.0 H BUN 50 H D Creatinine 6.37 H* D Est Cr Clr Drug Dosing 10.2 Est GFR ( Amer) 7.9 Est GFR (Non-Af Amer) 6.9 BUN/Creatinine Ratio 8.0 L Glucose 123 H POC Glucose 95 POC Glucose (other) Lactate 1.0 Calcium 8.2 L Phosphorus 7.8 H Magnesium 2.3 Gabapentin Medications Administered Current Inpatient Medications Acetaminophen (Ofirmev) 1,000 mg IV Q8H PRN PRN Reason: Pain Stop: 06/07/18 09:13 Last Admin: 05/08/18 09:25 Dose: 1,000 mg Aspirin (Aspirin Chew) 81 mg PO DAILY [facility] Stop: 06/05/18 08:59 Last Admin: 05/08/18 08:40 Dose: Not Given Calcium Acetate (Phoslo) 1,334 mg PO TID [facility] Stop: 06/04/18 22:30 Last Admin: 05/08/18 13:46 Dose: Not Given Dextrose (Dextrose 50%) 25 - 50 ml IV UD PRN; Protocol PRN Reason: Hypoglycemia Protocol Stop: 06/04/18 22:30 Glucagon (Glucagen) 1 mg SQ UD PRN; Protocol PRN Reason: Hypoglycemia Protocol Stop: 06/04/18 22:30 Glucose (Glucose 40%) 15 - 30 gm PO UD PRN; Protocol PRN Reason: Hypoglycemia Protocol Stop: 06/04/18 22:30 Glucose (Dex4 Glucose) 4 - 8 tabs PO UD PRN; Protocol PRN Reason: Hypoglycemia Protocol Stop: 06/04/18 22:30 Heparin Sodium (Beef Lung) (Heparin Sod 10 Unit/Ml Flush) 5 ml FLUSH PRN PRN PRN Reason: Flush Stop: 06/06/18 02:16 Heparin Sodium (Porcine) (Heparin Sodium (Porcine)) 5,000 units SQ Q12 [facility] Stop: 06/05/18 08:59 Last Admin: 05/08/18 08:41 Dose: 5,000 units Heparin Sodium (Porcine) (Heparin Iv Bolus) 3,000 units IV TODAY@0800 [facility] Stop: 05/08/18 16:00 Last Admin: 05/08/18 12:42 Dose: Not Given Levothyroxine Sodium 100 mcg/ (Syringe) 5 mls @ 2 mls/min IV DAILY@0900 [facility] Stop: 06/05/18 08:59 Last Admin: 05/08/18 08:40 Dose: 2 mls/min Hydrocortisone Sodium (Succinate 50 mg/ Syringe) 1 mls @ 4 mls/min IV Q6 [facility] Stop: 06/04/18 22:29 Last Admin: 05/08/18 13:43 Dose: 4 mls/min Pantoprazole Sodium 40 mg/ (Syringe) 10 mls @ 5 mls/min IV DAILY@1100 [facility] Stop: 06/05/18 10:59 Last Admin: 05/08/18 08:40 Dose: 5 mls/min Piperacillin Sod/Tazobactam (Sod 3.375 gm/ Dextrose) 115 mls @ 28.75 mls/hr IV Q12H [facility]; Protocol Stop: 05/13/18 09:59 Last Admin: 05/08/18 13:44 Dose: 28.8 mls/hr Norepinephrine Bitartrate 8 mg (/ Dextrose) 508 mls @ 0 mls/hr IV .Q0M PRN; Protocol PRN Reason: TITRATE Stop: 06/05/18 03:25 Last Titration: 05/08/18 14:14 Dose: 0 mcg/kg/min, 0 mls/hr Ascorbic Acid 1,500 mg/Thiamine HCl 100 mg/ Sodium Chloride 104 mls @ 207 mls/ hr IV Q6H [facility] Stop: 05/09/18 06:31 Last Infusion: 05/08/18 14:18 Dose: Infused Iron Sucrose 100 mg/ Syringe 5 mls @ 1 mls/min IV TODAY@0800 [facility] Stop: 05/08/18 16:00 Last Admin: 05/08/18 12:42 Dose: 1 mls/min Ipratropium [place] (Atrovent 0.02% 0.5mg/2.5ml) 0.5 mg INH Q4R PRN PRN Reason: SOB/WHEEZING Stop: 06/05/18 00:00 Last Admin: 05/08/18 14:20 Dose: 0.5 mg Levalbuterol HCl (Xopenex 1.25mg/0.5ml Neb) 1.25 mg INH Q4R PRN PRN Reason: SOB/WHEEZING Stop: 06/05/18 00:00 Last Admin: 05/08/18 14:20 Dose: 1.25 mg Midazolam HCl (Versed) 1 mg IV Q1H PRN PRN Reason: Agitation Stop: 06/05/18 00:26 Last Admin: 05/07/18 23:21 Dose: 1 mg Miscellaneous (Carbohydrates For Hypoglycemia) 15 - 30 gm PO UD PRN PRN Reason: Hypoglycemia Treatment Stop: 06/04/18 22:30 Miscellaneous Information (Consult) 1 ea N/A UD PRN PRN Reason: Consult Stop: 06/04/18 23:08 Multi-Ingredient Cream (Hydrocerin) 1 appln EXT BID PRN PRN Reason: dry skin Stop: 06/05/18 18:12 Last Admin: 05/08/18 13:44 Dose: 1 appln Vitamin D (Vitamin D3) 1,000 units PO DAILY [facility] Stop: 06/05/18 08:59 Last Admin: 05/08/18 08:40 Dose: Not Given Resident Activity Tracking Resident Involvement: Resident Care Provided Care Provided: Adult Hospital Medicine
[2018-05-08] MEDS: ACETAMINOPHEN 1000 MG/100 ML IV IV PRN (09:25)
--- NOTE | 2018-05-08 11:29 | Progress Note ---
DATE: 05/08/2018 RENAL PROGRESS NOTE SUBJECTIVE: Mrs. Allen has been extubated. She says that she is feeling quite well now. She has a minimal sore throat, probably from her endotracheal tube. She denies being short of breath and denies having any chest pain. She has no nausea or vomiting. She has not eaten yet, but is hungry. She has been started on her dialysis treatment for today. OBJECTIVE: GENERAL: On physical exam when seen, she appears remarkably well. She was awake, alert and oriented. VITAL SIGNS: Her blood pressure is 113/66, her pulse 87 and regular, respiratory rate 21, her pulse ox 98% on oxygen via nasal cannula. She has a minimal temperature of 37.3. SKIN: Shows normal skin turgor. She has a significant amount of dryness on the skin of her distal lower extremities. She has multiple scars from prior surgical procedures. She has a pacemaker beneath the distal right clavicle. She has a left upper arm AV fistula which is functioning well. She has markedly dystrophic toenail changes. LYMPHATICS: Show no palpable adenopathy. HEAD: Grossly normal. EYES: Grossly normal. Extraocular movements are intact. Conjunctivae are not icteric. I did not examine the fundi. NOSE, MOUTH AND THROAT: Unremarkable except for very poor dentition. Oral mucous membranes are moist. NECK: Supple. There is no jugular venous distention, but the exam is limited by her body habitus. There is no carotid bruit or thyromegaly. CHEST: Clear to auscultation. Breath sounds are slightly diminished, but I hear no wheezes, rales or rhonchi. CARDIAC: Shows a regular rhythm. S1 and S2 are normal. She has a grade 2-3 systolic murmur at the base radiating along the left sternal border to the apex, but also radiating toward the neck. I do not hear a diastolic murmur or gallop. ABDOMEN: Minimally distended. She has a large ventral hernia which does reduce easily. Her abdomen is not particularly tender. Bowel sounds are present. I cannot feel her cystic kidneys because of the abdominal distention and cannot definitely feel her liver. EXTREMITIES: Show no cyanosis, clubbing or peripheral edema. She has a left upper arm AV fistula. The skin of her distal lower extremities shows some changes of venous stasis and general scaliness. Peripheral pulses are diminished in her feet. NEUROLOGIC: Shows no lateralizing changes. PERTINENT LABORATORY WORK: From today shows a white count of 9210. Her neutrophil percentage is 87.4, lymphocyte percentage 6.9, monocyte percentage 5.5. Her hemoglobin is 11.6 with a hematocrit of 34.5. Her platelet count is 134,000. Her clinical chemistries show a sodium of 123 mmol/L, potassium 3.9 mmol/L, chloride is 85 mmol/L, and CO2 content 25 mmol/L. Her anion gap is 13. Her BUN is 50 with a creatinine of 6.37. Her serum calcium is 8.2, her phosphate 7.8, her serum magnesium 2.3. A chest x-ray done today shows some persistent bilateral pulmonary airspace opacities. ASSESSMENT: Clinically dramatically improved. Certainly, she is awake and alert. She has been extubated and her oxygen saturations are adequate. PLAN: Routine hemodialysis today. We will try to remove another 3 liters. It should correct her electrolytes including her sodium of 123. No other changes for now. I am sure that over the next 24-48 hours, she will be transitioned to a regular bed and hopefully will not have to remain in the hospital for an extended period of time.
--- NOTE | 2018-05-08 11:31 | Critical Care Progress Note ---
Date of Service May 08, 2018 Assessment & Plan (1) Altered mental status: 52-year-old female was admitted to the ICU on 05 May 2018 for weakness /confusion found to be in acute respiratory and heart failure. 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 Initially obtunded, but now responds to commands. CT head non-acute. PMH abuse of opiates and benzos. Patient was ordered fentanyl and Versed by healthcare providers. UDS positive for THC. Gabapentin level relatively high. Getting minimal fentanyl prn. - Goal for off fentanyl. Tylenol for some mild abdominal pain. Pulm: Acute respiratory failure (ph 7.06) with hypoxia and hypercapnia. PMH COPD, at home is on 3.5 L NC O2. intubated, extubated to oximask. On scheduled hydrocortisone, prn Xopenex and Atrovent. Noted tracheomalacia and excessive dynamic airway collapse on bronch. CVS: Acute on chronic systolic heart failure. Hypotensive, still requiring norepi drip. Previously on midodrine. PSH tricuspid and mitral valve repairs. echo noted EF 50-55%, grade II diastolic failure. Paced rhythm. - Working to wean off the norepi. ID: Afebrile, normal WBC. Elevated procalcitonin (may be renal-related). Likely aspiration PNA seen on CT chest. empirically started Zosyn. BCx NGTD. UCx negative. Serial lactate negative. Endo: Admit TSH 155 and PMH hypothyroidism (likely non-compliant with home meds) . Here started on levothyroxine. Admit HbA1c 5.4. Renal/Lytes: ESRD (Nephro = Dr. Hugo as outpatient), normal dialysis MWF ( last ). Admit Na 131, down to 128, managed with dialysis (next planned for today ). GI: See extensive CT a/p findings. Chronic ventral hernia. - Advancing to renal diet now that extubated. Heme: Admit Hb 12.8, a little down since but stable. On Procrit and iron. Monitoring. DVT prophy: Heparin subq. Lines: Right arterial line. PIV. Right brachial endurance catheter. Right femoral TLC. Code status: Full code PT/OT: Deferred Disposition: Critically ill. Admitted to ICU. (2) History of drug abuse: (3) Acute respiratory failure with hypoxia and hypercarbia: (4) COPD (chronic obstructive pulmonary disease): (5) Respiratory failure: (6) Aspiration pneumonia: (7) Acute on chronic systolic heart failure: (8) Hypotension: (9) S/P mitral valve repair: (10) S/P placement of cardiac pacemaker: (11) S/P tricuspid valve repair: (12) Hypothyroidism: (13) End-stage renal disease (ESRD): (14) Hyponatremia: (15) Ventral hernia: (16) Anemia: Supervising Physician Co-Signing Physician Notes Dr. Gonzalez was resident physician during care of patient. I separately evaluated patient for woodard portions of the history and the exam. I was present during the critical portion of medical decision making, and I discussed the case with the resident. I generally agree with the findings and plan. Agreeable to wean the patient off vasoactive medications today. She is remained stable for greater than 12 hours. Respiratory cultures revealed light normal estephania. I would continue antibiotics IV for additional 24 hours and then convert to Augmentin for oral antibiotic coverage. Were not growing one particular organism at this time however I do feel she clinically showed signs of a pneumonia. Central line may be removed. Patient was discussed in multidisciplinary rounds. She is stable for downgrade out of the ICU. Subjective Found patient resting comfortably after being extubated. She said that her abdomen and her throat hurt a little bit but otherwise was feeling okay. Physical Exam 2 Vital Signs (Past 24 Hours): Last Vital Signs Temp 36.6 C 05/08/18 08:01 Pulse 92 H 05/08/18 11:16 Resp 18 05/08/18 11:16 BP 110/56 L 05/08/18 11:16 Pulse Ox 96 05/08/18 11:16 Physical Exam: General Appearance: Awake, alert, does not appear in acute distress. CV: +S1S2 RRR, no murmur. Pacemaker. Pulm: Coarse breath sounds throughout. Oxymask in place. Abdomen: +BS, soft, non-tender, non-distended. Ventral hernia. Extremities: No pedal edema. Neuro: No gross neuro deficits. Results & Data Laboratory Results 05/08/18 05/08/18 05/08/18 Range/Units 08:37 04:39 04:39 WBC 9.21 (4.8-10.8) K/uL RBC 3.61 L (4.2-5.4) M/uL Hgb 11.6 L (12.0-16.0) g/dL Hct 34.5 L (37-47) % MCV 95.6 (80-100) fL MCH 32.1 (25-34) pg MCHC 33.6 (32-36) g/dL RDW Std Deviation 52.1 H (36.4-46.3) fL RDW Coeff of Ya 14.8 H (11.5-14.5) % Plt Count 134 (130-400) K/uL MPV 10.2 (7.4-10.4) fL Immature Gran % (Auto) 0.2 % Neut % (Auto) 87.4 % Lymph % (Auto) 6.9 % [place] % (Auto) 5.5 % Eos % (Auto) 0.0 % Baso % (Auto) 0.0 % Immature Gran # (Auto) 0.02 (0.00-0.02) K/uL Neut # (Auto) 8.04 H (1.4-6.5) K/uL Lymph # (Auto) 0.64 L (1.2-3.4) K/uL [place] # (Auto) 0.51 (0.11-0.59) K/uL Eos # (Auto) 0.00 (0-0.5) K/uL Baso # (Auto) 0.00 (0-0.2) K/uL Sodium 123 L (136-145) mmol/L Potassium 3.9 (3.5-5.1) mmol/L Chloride 85 L (98-107) mmol/L Carbon Dioxide 25 (21-32) mmol/L Anion Gap 13.0 H (3-11) BUN 50 H D (7-18) mg/dl Creatinine 6.37 H* D (0.6-1.2) mg/dl Est Cr Clr Drug Dosing 10.2 ml/min Est GFR ( Amer) 7.9 Est GFR (Non-Af Amer) 6.9 BUN/Creatinine Ratio 8.0 L (10-20) Glucose 123 H (70-99) mg/dl POC Glucose (other) (70-99) mg/dl Lactate 1.0 (0.4-2.0) mmol/L Calcium 8.2 L (8.5-10.1) mg/dl Phosphorus 7.8 H (2.5-4.9) mg/dl Magnesium 2.3 (1.8-2.4) mg/dl Gabapentin mcg/mL 05/07/18 05/06/18 Range/Units 17:29 10:43 WBC (4.8-10.8) K/uL RBC (4.2-5.4) M/uL Hgb (12.0-16.0) g/dL Hct (37-47) % MCV (80-100) fL MCH (25-34) pg MCHC (32-36) g/dL RDW Std Deviation (36.4-46.3) fL RDW Coeff of Ya (11.5-14.5) % Plt Count (130-400) K/uL MPV (7.4-10.4) fL Immature Gran % (Auto) % Neut % (Auto) % Lymph % (Auto) % [place] % (Auto) % Eos % (Auto) % Baso % (Auto) % Immature Gran # (Auto) (0.00-0.02) K/uL Neut # (Auto) (1.4-6.5) K/uL Lymph # (Auto) (1.2-3.4) K/uL [place] # (Auto) (0.11-0.59) K/uL Eos # (Auto) (0-0.5) K/uL Baso # (Auto) (0-0.2) K/uL Sodium (136-145) mmol/L Potassium (3.5-5.1) mmol/L Chloride (98-107) mmol/L Carbon Dioxide (21-32) mmol/L Anion Gap (3-11) BUN (7-18) mg/dl Creatinine (0.6-1.2) mg/dl Est Cr Clr Drug Dosing ml/min Est GFR ( Amer) Est GFR (Non-Af Amer) BUN/Creatinine Ratio (10-20) Glucose (70-99) mg/dl POC Glucose (other) 122 H (70-99) mg/dl Lactate (0.4-2.0) mmol/L Calcium (8.5-10.1) mg/dl Phosphorus (2.5-4.9) mg/dl Magnesium (1.8-2.4) mg/dl Gabapentin 20.0 mcg/mL Medications Administered Current Inpatient Medications Acetaminophen (Ofirmev) 1,000 mg IV Q8H PRN PRN Reason: Pain Stop: 06/07/18 09:13 Last Admin: 05/08/18 09:25 Dose: 1,000 mg Aspirin (Aspirin Chew) 81 mg PO DAILY [facility] Stop: 06/05/18 08:59 Last Admin: 05/08/18 08:40 Dose: Not Given Calcium Acetate (Phoslo) 1,334 mg PO TID [facility] Stop: 06/04/18 22:30 Last Admin: 05/08/18 08:39 Dose: Not Given Dextrose (Dextrose 50%) 25 - 50 ml IV UD PRN; Protocol PRN Reason: Hypoglycemia Protocol Stop: 06/04/18 22:30 Glucagon (Glucagen) 1 mg SQ UD PRN; Protocol PRN Reason: Hypoglycemia Protocol Stop: 06/04/18 22:30 Glucose (Glucose 40%) 15 - 30 gm PO UD PRN; Protocol PRN Reason: Hypoglycemia Protocol Stop: 06/04/18 22:30 Glucose (Dex4 Glucose) 4 - 8 tabs PO UD PRN; Protocol PRN Reason: Hypoglycemia Protocol Stop: 06/04/18 22:30 Heparin Sodium (Beef Lung) (Heparin Sod 10 Unit/Ml Flush) 5 ml FLUSH PRN PRN PRN Reason: Flush Stop: 06/06/18 02:16 Heparin Sodium (Porcine) (Heparin Sodium (Porcine)) 5,000 units SQ Q12 [facility] Stop: 06/05/18 08:59 Last Admin: 05/08/18 08:41 Dose: 5,000 units Heparin Sodium (Porcine) (Heparin Iv Bolus) 3,000 units IV TODAY@0800 [facility] Stop: 05/08/18 16:00 Levothyroxine Sodium 100 mcg/ (Syringe) 5 mls @ 2 mls/min IV DAILY@0900 [facility] Stop: 06/05/18 08:59 Last Admin: 05/08/18 08:40 Dose: 2 mls/min Hydrocortisone Sodium (Succinate 50 mg/ Syringe) 1 mls @ 4 mls/min IV Q6 [facility] Stop: 06/04/18 22:29 Last Admin: 05/08/18 05:48 Dose: 4 mls/min Pantoprazole Sodium 40 mg/ (Syringe) 10 mls @ 5 mls/min IV DAILY@1100 [facility] Stop: 06/05/18 10:59 Last Admin: 05/08/18 08:40 Dose: 5 mls/min Piperacillin Sod/Tazobactam (Sod 3.375 gm/ Dextrose) 115 mls @ 28.75 mls/hr IV Q12H [facility]; Protocol Stop: 05/13/18 09:59 Last Infusion: 05/08/18 01:19 Dose: Infused Norepinephrine Bitartrate 8 mg (/ Dextrose) 508 mls @ 45.01 mls/hr IV .[id number] PRN; Protocol PRN Reason: TITRATE Stop: 06/05/18 03:25 Last Titration: 05/08/18 07:06 Dose: 0.14 mcg/kg/min, 45 mls/hr Ascorbic Acid 1,500 mg/Thiamine HCl 100 mg/ Sodium Chloride 104 mls @ 207 mls/ hr IV Q6H [facility] Stop: 05/09/18 06:31 Last Infusion: 05/08/18 06:36 Dose: Infused Iron Sucrose 100 mg/ Syringe 5 mls @ 1 mls/min IV TODAY@0800 [facility] Stop: 05/08/18 16:00 Ipratropium [place] (Atrovent 0.02% 0.5mg/2.5ml) 0.5 mg INH Q4R PRN PRN Reason: SOB/WHEEZING Stop: 06/05/18 00:00 Levalbuterol HCl (Xopenex 1.25mg/0.5ml Neb) 1.25 mg INH Q4R PRN PRN Reason: SOB/WHEEZING Stop: 06/05/18 00:00 Midazolam HCl (Versed) 1 mg IV Q1H PRN PRN Reason: Agitation Stop: 06/05/18 00:26 Last Admin: 05/07/18 23:21 Dose: 1 mg Miscellaneous (Carbohydrates For Hypoglycemia) 15 - 30 gm PO UD PRN PRN Reason: Hypoglycemia Treatment Stop: 06/04/18 22:30 Miscellaneous Information (Consult) 1 ea N/A UD PRN PRN Reason: Consult Stop: 06/04/18 23:08 Multi-Ingredient Cream (Hydrocerin) 1 appln EXT BID PRN PRN Reason: dry skin Stop: 06/05/18 18:12 Last Admin: 05/07/18 10:16 Dose: 1 appln Vitamin D (Vitamin D3) 1,000 units PO DAILY [facility] Stop: 06/05/18 08:59 Last Admin: 05/08/18 08:40 Dose: Not Given Resident Activity Tracking Resident Involvement: Resident Care Provided Care Provided: Adult Hospital Medicine
[2018-05-08] MEDS: PIPERACILLIN/TAZOBACTAM 3.375 GM in DEXTROSE 5% 100 ML IV SCH ×2 (13:44→21:50)
[2018-05-08] MEDS: EUCERIN CR 120 GM JAR EXT PRN (13:44)
[2018-05-08] MEDS: IPRATROPIUM BROMIDE NEB SOLN 0.02% 2.5 ML VIAL INH PRN ×2 (14:20→17:28)
[2018-05-08] MEDS: LEVALBUTEROL 1.25MG/0.5ML NEB INH PRN ×2 (14:20→17:28)
[2018-05-08] MEDS: MIDODRINE HCL 2.5 MG TAB PO SCH (18:31)
[2018-05-09] MEDS: HYDROCORTISONE SOD 50 MG in SYRINGE 0 ML IV SCH ×4 (01:47→19:09)
[2018-05-09] MEDS: ASCORBIC ACID 1,500 MG, THIAMINE HCL 100 MG in 0.9 % SODIUM CHLORIDE 100 ML IV SCH ×2 (01:47→05:58)
[2018-05-09 07:31] LABS: Hematocrit (blood only) 35.3 % (37-47); Hemoglobin 11.6 g/dL (12.0-16.0); Mean Corpuscular Hgb Conc 32.9 g/dL (32-36); Mean Corpuscular Volume 97.2 fL (80-100); RDW Coefficient of Variation 14.9 % (11.5-14.5); RDW Standard Deviation 52.8 fL (36.4-46.3); Red Blood Count 3.63 M/uL (4.2-5.4); White Blood Count 5.39 K/uL (4.8-10.8)
[2018-05-09] MEDS: CHOLECALCIFEROL 1,000 UNITS TAB PO SCH (07:47)
[2018-05-09] MEDS: CALCIUM ACETATE 667 MG CAP PO SCH ×3 (07:47→20:43)
[2018-05-09] MEDS: MIDODRINE HCL 2.5 MG TAB PO SCH (07:47)
[2018-05-09] MEDS: EUCERIN CR 120 GM JAR EXT PRN (07:48)
[2018-05-09] MEDS: HEPARIN SOD 5,000 UNIT/0.5 ML VIAL SQ SCH ×3 (07:48→20:50)
[2018-05-09] MEDS: ACETAMINOPHEN 1000 MG/100 ML IV IV PRN (07:50)
[2018-05-09] MEDS: ASPIRIN 81 MG CHEW PO SCH (07:51)
[2018-05-09 08:11] LABS: Mean Platelet Volume 9.6 fL (7.4-10.4); Platelet Count 92 K/uL (130-400)
[2018-05-09] MEDS: LEVOTHYROXINE SODIUM 100 MCG in SYRINGE 0 ML IV SCH (08:33)
[2018-05-09] MEDS: PIPERACILLIN/TAZOBACTAM 3.375 GM in DEXTROSE 5% 100 ML IV SCH ×2 (08:33→21:31)
[2018-05-09] MEDS ORDERED: SODIUM CHLORIDE 0.9% 1000ML 1,000 ML IV PRN (11:09)
[2018-05-09] MEDS ORDERED: HEPARIN SOD (PORCINE) 1000 UNIT/ML 10 ML VIAL IV SCH (11:09)
[2018-05-09] MEDS ORDERED: EPOETIN ALFA 10,000 UNITS/ML VIAL IV ONE (11:09)
[2018-05-09] MEDS: PANTOprazole 40 MG in SYRINGE 0 ML IV SCH (11:09)
[2018-05-09 11:21] LABS: BUN Creatinine Ratio 6.7 (10-20); Calcium 8.4 mg/dl (8.5-10.1); Est GFR (African American) 12.2; Est GFR (Non-African American) 10.5; Potassium 3.4 mmol/L (3.5-5.1)
--- NOTE | 2018-05-09 11:25 | Family Medicine Progress Note ---
Date of Service May 09, 2018 Assessment & Plan (1) Altered mental status: Ms. Allen is a 52-year-old with a history of polycystic kidney disease, resulting in ESRD on dialysis, valvular heart disease s/p tricuspid and mitral valve repair, drug abuse, COPD, hyperlipidemia, systolic heart failure, prior endocarditis, neuropathy, hypothyroidism who presents to the emergency department due to altered mental status. Trial of BiPAP with concurrent administration of naloxone was attempted in the emergency department, however due to her worsening ABG, she was subsequently intubated and placed on a ventilator. - Differential for altered mental status includes secondary to infection, drug abuse, myxedema coma - AMS has resolved. (2) History of drug abuse: - Urine drug screen positive for THC. Gabapentin level elevated at 20. - Likely contributed to prior altered mental status - pt has history of drug abuse in the past (3) Acute respiratory failure with hypoxia and hypercarbia: - chronically on 3.5 L NC O2 - initially required intubation, however patient is now saturating well on 5L of oxygen via nasal cannula - wean as tolerated - Chest CT showed extensive aspiration w/edema vs. hemorrhage - continue prn Xopenex, Atrovent - restart home budesonide neb - hydrocortisone decreased from 50mg q6h to q8h - flutter valve ordered to assist w/expectoration - s/p bronchoscopy on 05/06 which showed tracheomalacia and excessive dynamic airway collapse (4) COPD (chronic obstructive pulmonary disease): - as above (5) Aspiration pneumonia: - on zosyn (day 4) for aspiration pneumonia, transition to p.o augmentin tomorrow - BAL and bcx preliminary results negative (6) Acute on chronic systolic heart failure: -Unable to diurese as patient is anuric (7) Hypotension: -weaned off levophed drip -Central line in place -restart home midodrine 10mg tid (8) S/P mitral valve repair: (9) S/P placement of cardiac pacemaker: (10) S/P tricuspid valve repair: (11) Hypothyroidism: -TSH of 155, patient generally noncompliant with home medications -Treated with IV levothyroxine 100 mcg daily -> transitioned to home dose of 175mcg daily p.o -TSH improved on recheck to 22, confirming patient likely dose not comply w/ home regimen (12) End-stage renal disease (ESRD): -secondary to polycystic kidney disease -Follows with Dr. 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 Anticipate d/c Sunday. PT/OT consulted. Supervising Physician Co-Signing Physician Notes Patient seen and examined at the bedside with Dr. Walton. Agree with history , exam findings, assessment and plan of care as outlined by Dr. Walton. Changes and updates below. In brief, Ms. Allen is a 52 year old female with complex medical history including hypothyroidism, ESRD, valvular heart disease and drug abuse complicated by non-adherence admitted with altered mental status. VSS and labs reviewed. Transferred to tele last night at 9pm. Coughing but feels breathing has improved. Reports some abd pain around her hernia, but not any worse than usual for her. No issues with bowel movements. 1. acute resp failure secondary to aspiration pneumonia and sepsis. Weaned to 2L NC. On zosyn; transition to augmentin tomorrow. Cont with nebs and hydrocortisone stress steroids. 2. HFpEF. fluid overload, however anuric so likely will need to take fluid off with HD. 3. hypothyroid. TSH 155. IV levothyroxine 100mg. Recheck TSH. 4. ESRD. anuric. HD MWF. Restart home midorine for BP. appreciate renal recs. 5. polycystic liver. evidence of fibrotic change, splenomegaly. Dispo: once transitioned to home meds and to oral augmentin, plan to discharge home. Subjective Ms. Allen reports that she remains with abdominal pain, which she states is now constant. She states the pain is right over her hernia, and that it is worsened by coughing. She notes that she had her last bowel movement this morning and that it was soft. She denies the presence of blood in her stool. She states her breathing is improved, however she remains with a productive cough. She states she does not want to get up and move around as her abdominal pain is severe. Constitutional: + fatigue; no fever and no chills Respiratory: + cough Cardiovascular: no chest pain Gastrointestinal: + abdominal pain; no nausea, no vomiting, no change in stools and no blood in stools Physical Exam 2 Vital Signs (Past 24 Hours): Last Vital Signs Temp 37.1 C 05/09/18 11:20 Pulse 86 05/09/18 11:20 Resp 20 05/09/18 11:20 BP 80/42 L 05/09/18 11:20 Pulse Ox 93 05/09/18 11:20 Constitutional: appears uncomfortable. frequently coughs and winces when she coughs. Respiratory: normal respiratory effort Auscultation: + diminished lung sounds (Coarse breath sounds over bilateral lung bases) and + wheezes ( Scattered wheezing bilaterally) Cardiovascular: RRR, no murmur, no edema (Pacemaker in place) Gastrointestinal (Abdomen): Percussion/Palpation: + abdomen tender (Tender over ventral hernia); no guarding Results & Data Laboratory Results Laboratory Results - last 24 hr 05/09/18 05/09/18 05/09/18 07:23 07:24 10:34 WBC 5.39 RBC 3.63 L Hgb 11.6 L Hct 35.3 L MCV 97.2 MCH 32.0 MCHC 32.9 RDW Std Deviation 52.8 H RDW Coeff of Ya 14.9 H Plt Count 92 L MPV 9.6 Platelet Estimate Decreased Sodium 130 L D Potassium 3.4 L Chloride 90 L Carbon Dioxide 25 Anion Gap 15.0 H BUN 30 H Creatinine 4.48 H D Est Cr Clr Drug Dosing 15.0 Est GFR ( Amer) 12.2 Est GFR (Non-Af Amer) 10.5 BUN/Creatinine Ratio 6.7 L Glucose 82 Calcium 8.4 L TSH 22.400 H Medications Administered Current Inpatient Medications Acetaminophen (Ofirmev) 1,000 mg IV Q8H PRN PRN Reason: Pain Stop: 06/07/18 09:13 Last Admin: 05/09/18 07:50 Dose: 1,000 mg Aspirin (Aspirin Chew) 81 mg PO DAILY [facility] Stop: 06/05/18 08:59 Last Admin: 05/09/18 07:51 Dose: 81 mg Calcium Acetate (Phoslo) 1,334 mg PO TID [facility] Stop: 06/04/18 22:30 Last Admin: 05/09/18 12:36 Dose: 1,334 mg Dextrose (Dextrose 50%) 25 - 50 ml IV UD PRN; Protocol PRN Reason: Hypoglycemia Protocol Stop: 06/04/18 22:30 Glucagon (Glucagen) 1 mg SQ UD PRN; Protocol PRN Reason: Hypoglycemia Protocol Stop: 06/04/18 22:30 Glucose (Glucose 40%) 15 - 30 gm PO UD PRN; Protocol PRN Reason: Hypoglycemia Protocol Stop: 06/04/18 22:30 Glucose (Dex4 Glucose) 4 - 8 tabs PO UD PRN; Protocol PRN Reason: Hypoglycemia Protocol Stop: 06/04/18 22:30 Heparin Sodium (Beef Lung) (Heparin Sod 10 Unit/Ml Flush) 5 ml FLUSH PRN PRN PRN Reason: Flush Stop: 06/06/18 02:16 Heparin Sodium (Porcine) (Heparin Sodium (Porcine)) 5,000 units SQ Q12 [facility] Stop: 06/05/18 08:59 Last Admin: 05/09/18 07:48 Dose: 5,000 units Levothyroxine Sodium 100 mcg/ (Syringe) 5 mls @ 2 mls/min IV DAILY@0900 [facility] Stop: 06/05/18 08:59 Last Admin: 05/09/18 08:33 Dose: 2 mls/min Piperacillin Sod/Tazobactam (Sod 3.375 gm/ Dextrose) 115 mls @ 28.75 mls/hr IV Q12H [facility]; Protocol Stop: 05/13/18 09:59 Last Infusion: 05/09/18 12:37 Dose: Infused Hydrocortisone Sodium (Succinate 50 mg/ Syringe) 1 mls @ 4 mls/min IV Q8H [facility] Stop: 06/08/18 18:59 Ipratropium [place] (Atrovent 0.02% 0.5mg/2.5ml) 0.5 mg INH Q4R PRN PRN Reason: SOB/WHEEZING Stop: 06/05/18 00:00 Last Admin: 05/08/18 17:28 Dose: 0.5 mg Levalbuterol HCl (Xopenex 1.25mg/0.5ml Neb) 1.25 mg INH Q4R PRN PRN Reason: SOB/WHEEZING Stop: 06/05/18 00:00 Last Admin: 05/08/18 17:28 Dose: 1.25 mg Midodrine (Proamatine) 10 mg PO TID@0800,1200,1700 [facility] Stop: 06/08/18 11:59 Last Admin: 05/09/18 16:47 Dose: 10 mg Miscellaneous (Carbohydrates For Hypoglycemia) 15 - 30 gm PO UD PRN PRN Reason: Hypoglycemia Treatment Stop: 06/04/18 22:30 Miscellaneous Information (Consult) 1 ea N/A UD PRN PRN Reason: Consult Stop: 06/04/18 23:08 Multi-Ingredient Cream (Hydrocerin) 1 appln EXT BID PRN PRN Reason: dry skin Stop: 06/05/18 18:12 Last Admin: 05/09/18 07:48 Dose: 1 appln Oxycodone/Acetaminophen (Percocet 10/325mg) 1 tab PO Q12H PRN PRN Reason: Pain Stop: 05/23/18 11:20 Pantoprazole Sodium (Protonix) 40 mg PO QAM [facility] Stop: 05/13/18 09:01 Vitamin D (Vitamin D3) 1,000 units PO DAILY [facility] Stop: 06/05/18 08:59 Last Admin: 05/09/18 07:47 Dose: 1,000 units Resident Activity Tracking Resident Involvement: Resident Care Provided Care Provided: Adult Hospital Medicine
--- NOTE | 2018-05-09 11:56 | Progress Note ---
DATE: 05/09/2018 RENAL PROGRESS NOTE SUBJECTIVE: Mrs. Allen has been transferred to the floor. When seen today, she complained of some generalized weakness, but had no other specific complaints including no chest pain or significant shortness of breath. She was able to ambulate to the bathroom. She says that she has a fair appetite. She denies any nausea or vomiting. She has no specific symptoms of uremia or volume overload. She continues on her prescribed medications. She is still getting levothyroxine intravenously. She is on some IV hydrocortisone as well as pantoprazole and she continues on piperacillin/tazobactam. Her other medications include PhosLo with meals, vitamin D and an 81 mg aspirin a day as well as her midodrine in a dose of only 5 mg daily. OBJECTIVE: GENERAL: On physical examination, she appears to be a bit uncomfortable, but certainly in no significant acute distress. VITAL SIGNS: Her blood pressure was 97/61 (not unusual for her). Her pulse is 88 and regular, respiratory rate 20, her pulse ox 92% on oxygen at a flow rate of 5 liters a minute. She is afebrile. SKIN: Examination of her skin shows normal skin turgor. She has multiple scars from prior surgical procedures, particularly scars on her left arm from the creation of her AV fistula which appears to be functioning well. She also has abdominal scars from previous abdominal surgery and scars on her chest from cardiac surgery and the placement of a pacemaker. She has dystrophic toenail changes and dry scaly skin on her distal lower extremities. LYMPHATICS: Show no palpable adenopathy. HEAD: Grossly normal. EYES: Grossly normal. She has no conjunctival icterus. Pupils are equal and reactive. I did not examine the fundi. EARS, NOSE, MOUTH AND THROAT: Unremarkable other than poor dentition. Oral mucous membranes are moist. NECK: Supple. She has no jugular venous distention, but the exam is limited by her body habitus. I hear no carotid bruit or thyromegaly. CHEST: Clear to auscultation. However, breath sounds are diminished at the bases related to her body habitus. I hear no wheezes, rales or rhonchi. CARDIAC: Shows a regular rhythm. S1 and S2 are normal. There is a grade 2/6 systolic murmur at the base radiating toward the neck as well as along the left sternal border to the apex. I did not hear a diastolic murmur or gallop. ABDOMEN: Slightly distended. She has a ventral hernia which does reduce easily. Her abdomen was not particularly tender today. Bowel sounds are present. I could not feel her cystic kidneys because of her slight abdominal distention. EXTREMITIES: Show no cyanosis, clubbing or peripheral edema. There is a left upper arm AV fistula. The skin of her distal lower extremities shows changes of venous stasis dermatitis and scaliness. Peripheral pulses are diminished in her feet. I hear no femoral bruits. NEUROLOGIC: Shows no lateralizing changes. LABORATORY WORK: From today shows a white count of 5390. Her hemoglobin is 11.6 with a hematocrit of 35.3. Red cell indices are unremarkable. Her platelet count is 92,000. Clinical chemistries are not yet reported. She has not had a recent blood gases. Additionally, with regard to her clinical chemistries, a TSH done yesterday was down to 22.40. ASSESSMENT: Mrs. Allen seems to be stable. Obviously, her respiratory status is improved, but she is still oxygen dependent and she has been for some time. She does have home oxygen. RECOMMENDATIONS: Would transition to all of her oral medicines. Would resume her usual medications in doses consistent with those that she was on prior to admission (these are listed in my consult). Will plan on dialysis tomorrow, but hopefully she will be able to be discharged soon. I think that her antibiotics can be completed as oral antibiotics.
[2018-05-09] MEDS: MIDODRINE HCL 10 MG TAB PO SCH ×2 (12:36→16:47)
[2018-05-09] MEDS: BUDESONIDE 0.5 MG/2 ML VIAL (PULMICORT) NEB SCH (19:37)
[2018-05-09] MEDS: LEVALBUTEROL 1.25MG/0.5ML NEB INH PRN (19:39)
[2018-05-09] MEDS: IPRATROPIUM BROMIDE NEB SOLN 0.02% 2.5 ML VIAL INH PRN (19:40)
[2018-05-09] MEDS: GABAPENTIN 300 MG CAP PO SCH (20:42)
[2018-05-10] MEDS: OXYCODONE/ACETAMINOPHEN 10-325 TAB PO PRN ×2 (00:03→12:04)
[2018-05-10] MEDS: HYDROCORTISONE SOD 50 MG in SYRINGE 0 ML IV SCH ×2 (02:49→09:57)
[2018-05-10] MEDS: LEVOTHYROXINE SODIUM 175 MCG TABLET PO SCH (06:01)
[2018-05-10] MEDS: LORazepam 1 MG TAB PO PRN ×2 (06:03→21:14)
[2018-05-10] MEDS: IPRATROPIUM BROMIDE NEB SOLN 0.02% 2.5 ML VIAL INH PRN (07:00)
[2018-05-10] MEDS: LEVALBUTEROL 1.25MG/0.5ML NEB INH PRN (07:00)
[2018-05-10] MEDS: BUDESONIDE 0.5 MG/2 ML VIAL (PULMICORT) NEB SCH ×2 (07:00→19:12)
[2018-05-10 07:53] LABS: Hematocrit (blood only) 32.5 % (37-47); Hemoglobin 10.9 g/dL (12.0-16.0); Mean Corpuscular Hgb Conc 33.5 g/dL (32-36); RDW Standard Deviation 53.8 fL (36.4-46.3); Red Blood Count 3.35 M/uL (4.2-5.4); White Blood Count 4.69 K/uL (4.8-10.8)
[2018-05-10 08:04] LABS: Mean Platelet Volume 9.9 fL (7.4-10.4); Platelet Count 87 K/uL (130-400)
[2018-05-10] MEDS: HEPARIN SOD 5,000 UNIT/0.5 ML VIAL SQ SCH ×2 (08:09→21:13)
[2018-05-10] MEDS: CALCIUM ACETATE 667 MG CAP PO SCH ×3 (08:10→21:14)
[2018-05-10] MEDS: CHOLECALCIFEROL 1,000 UNITS TAB PO SCH (08:11)
[2018-05-10] MEDS: PANTOprazole 40 MG TAB PO SCH (08:11)
[2018-05-10 08:13] LABS: Basophils # (auto) 0.01 K/uL (0-0.2); Basophils % (auto) 0.2 %; Immature Granulocytes # (auto) 0.02 K/uL (0.00-0.02); Immature Granulocytes % (auto) 0.4 %; Lymphocytes # (auto) 0.55 K/uL (1.2-3.4); Lymphocytes % (auto) 11.7 %; Monocytes # (auto) 0.26 K/uL (0.11-0.59); Monocytes % (auto) 5.5 %; Neutrophils # (auto) 3.85 K/uL (1.4-6.5); Neutrophils % (auto) 82.2 %
[2018-05-10 08:32] LABS: BUN Creatinine Ratio 7.6 (10-20); Calcium 7.8 mg/dl (8.5-10.1); Creatinine Clr Calc Pharmacy 11.1 ml/min; Est GFR (African American) 8.4; Est GFR (Non-African American) 7.2; Potassium 3.6 mmol/L (3.5-5.1)
[2018-05-10] MEDS: ASPIRIN 81 MG CHEW PO SCH (09:49)
[2018-05-10] MEDS: MIDODRINE HCL 10 MG TAB PO SCH ×3 (09:50→21:09)
[2018-05-10] MEDS: PIPERACILLIN/TAZOBACTAM 3.375 GM in DEXTROSE 5% 100 ML IV SCH (09:50)
--- NOTE | 2018-05-10 10:47 | Progress Note ---
DATE: 05/10/2018 RENAL PROGRESS NOTE SUBJECTIVE: Ms. Allen says that she is feeling relatively well and is beginning to get anxious to go home. She denies having any chest pain and denies any shortness of breath at rest or with limited activity. She is ambulating using a walker at least to go to the bathroom. She denies having any chest pain. She does have a cough, but says that the cough is minimal and nonproductive. She is beginning to regain an appetite. She denies nausea or vomiting. She has no specific symptoms of uremia or volume overload. She is due for her maintenance dialysis today. OBJECTIVE: GENERAL: On physical exam when seen, Mrs. Allen was sitting up in bed. VITAL SIGNS: Her blood pressure was 96/59, her pulse 82 and regular, respiratory rate 20, her pulse ox 90% on 4 liters of oxygen via nasal cannula. Her temperature is 36.8. SKIN: Shows normal skin turgor. She has no rash or infiltrative skin disease. She has multiple scars from prior surgical procedures including scars to her left upper arm from the creation of an AV fistula and multiple dialysis needle track patel over the fistula. She has abdominal scars from previous abdominal surgery. She has scars from chest surgery as well (valvular heart surgery). She also has a palpable pacemaker with a scar over it beneath the distal left clavicle. She has some ecchymoses around the right wrist. She has changes of venous stasis dermatitis on her lower extremities as well as some dry scaliness of her distal lower extremities. She has dystrophic toenails. LYMPHATICS: Show no palpable lymphadenopathy. HEAD: Grossly normal. EYES: Grossly normal. The ocular fundi were not examined. EARS, NOSE, MOUTH AND THROAT: Unremarkable other than poor dentition. She does have moist oral mucous membranes. NECK: Supple. She has no jugular venous distention. However, the exam is limited by her body habitus. I hear no carotid bruits and there is no thyromegaly. CHEST: Shows diminished breath sounds throughout. Sitting up, I hear more in the way of coarse and fibrotic rales throughout her chest, particularly at the bases. She does have some scattered wheezes and a few rhonchi. CARDIAC: Shows a regular rhythm. S1 and S2 are normal. There is a grade 2/6 systolic murmur at the base radiating to the neck as well as along the left sternal border. I do not hear a diastolic murmur. ABDOMEN: Minimally distended. She has a large ventral hernia which does reduce easily. There is no significant abdominal tenderness. I cannot appreciate any definite organomegaly or mass. I cannot even feel her polycystic kidneys because of possible ascites as well as her ventral hernia. Bowel sounds are present. EXTREMITIES: Show no cyanosis, clubbing or peripheral edema. She has a left upper arm AV fistula. The skin of her distal lower extremities shows some changes of venous stasis and general scaliness. Peripheral pulses are diminished in her feet. NEUROLOGIC: Shows no lateralizing changes. PERTINENT LABORATORY WORK: From today shows a white count of 4690 with 82.2% neutrophils, 11.7% lymphocytes, 5.5% monocytes and 0.2% basophils. Her hemoglobin is 10.9 with a hematocrit of 32.5. Platelet count is 87,000. Her clinical chemistries from today show a sodium of 127 mmol/L, potassium 3.6 mmol/L, chloride of 89 mmol/L, and CO2 content of 25 mmol/L. Her BUN is 46, her creatinine 6.09. Her random blood sugar was 86. Her serum calcium is 7.8. ASSESSMENT: Ms. Allen continues to make progress. She feels that she is ready for discharge. However, she still has a relatively low oxygen saturation despite 4 liters of oxygen via nasal cannula. She does have oxygen at home. She remains on antibiotics and is to be transitioned today to oral antibiotics which I think should be fine. She should continue with all of her other medications including her prehospitalization dose of midodrine. Some of her laboratory work is disturbing particularly the high level of marijuana in her urine. This is particularly bothersome because of her very poor renal function and limited urine output. Therefore, a high level of marijuana in the urine from somebody that has the bare minimum of renal function would likely indicate very high serum levels. Additionally, the elevated gabapentin level is disturbing. A gabapentin is one of three drugs that the patient gets only every 10 days. She gets enough for a 10-day period and we have done that to try to minimize the abuse potential. However, the fact that her gabapentin level is up that suggests that there maybe some abuse in that regard. She should never receive more than 300 mg daily. Interestingly, however, her urine opiates and urine benzodiazepines are not measurable. However, that may relate as much to her poor renal function as noted above. Also, those studies were done after her first dialysis here and either the opiates or benzodiazepines may have been at least partially removed from her system with her first dialysis. She continues to have chronic pulmonary findings including scattered fibrotic sounding rales and occasional wheezes and rhonchi. If she is to be held here, it may be advisable to check another CT scan of her chest without contrast to see if there has been any significant improvement in the infiltrative pattern that has been noted on her chest x-ray. PLAN: Return to her usual prehospital medications. If she is to remain here, I would check another CT scan of her chest to see if there has been improvement in some of the infiltrative changes that were noted on her original study during this hospitalization. No other immediate recommendations. If she feels well, she can be discharged to home for outpatient followup. We will have to see how she does during the course of the day, I am not convinced that she is completely ready for discharge at this point.
[2018-05-10] MEDS ORDERED: LIDOCAINE/PRILOCAINE 2.5% EA CRM EXT ONE (12:00)
[2018-05-10 14:59] LABS: iSTAT Arterial Blood Gas HCO3 26 meg/L (19-24); iSTAT Carbon Dioxide 28 mEq/l (24-31); iSTAT FiO2 40 %
--- NOTE | 2018-05-10 17:41 | Family Medicine Progress Note ---
Addendum entered and electronically signed by Abad Roach MD 05/10/18 19:07 : Addendum (Blank) Addendum May 10, 2018 19:04 Going to transition patient to PO doxycycline 100mg bid as it is does not affect renal function. Also going to order CT of chest w/o contrast per Dr. Hugo recommendation to reassess aspiration. Original Note: Date of Service May 10, 2018 Assessment & Plan (1) Aspiration pneumonia: (1) Altered mental status: (RESOLVED) Ms. Allen is a 52-year-old with a history of polycystic kidney disease, resulting in ESRD on dialysis, valvular heart disease s/p tricuspid and mitral valve repair, drug abuse, COPD, hyperlipidemia, systolic heart failure, prior endocarditis, neuropathy, hypothyroidism who presents to the emergency department due to altered mental status. Trial of BiPAP with concurrent administration of naloxone was attempted in the emergency department, however due to her worsening ABG, she was subsequently intubated and placed on a ventilator. (2) History of drug abuse: - Urine drug screen positive for THC. Gabapentin level elevated at 20. - Likely contributed to prior altered mental status - pt has history of drug abuse in the past (3) Acute respiratory failure with hypoxia and hypercarbia: - chronically on 3.5 L NC O2 - initially required intubation, however patient is now saturating well on 3.5L of oxygen via nasal cannula - wean as tolerated - Chest CT showed extensive aspiration w/edema - continue prn Xopenex, Atrovent - restart home budesonide neb - will decrease prednisone to 40mg PO - flutter valve ordered to assist w/expectoration - s/p bronchoscopy on 05/06 which showed tracheomalacia and excessive dynamic airway collapse (4) COPD (chronic obstructive pulmonary disease): - as above (5) Aspiration pneumonia: - on zosyn (day 4) for aspiration pneumonia, transition to p.o augmentin today - BAL and bcx preliminary results negative (6) Acute on chronic systolic heart failure: -Unable to diurese as patient is anuric (7) Hypotension: -weaned off levophed drip -Central line in place -restart home midodrine 10mg tid (8) S/P mitral valve repair: (9) S/P placement of cardiac pacemaker: (10) S/P tricuspid valve repair: (11) Hypothyroidism: -TSH of 155, patient generally noncompliant with home medications -Treated with IV levothyroxine 100 mcg daily -> transitioned to home dose of 175mcg daily p.o -TSH improved on recheck to 22, confirming patient likely dose not comply w/ home regimen (12) End-stage renal disease (ESRD): -secondary to polycystic kidney disease -Follows with Dr. 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 Anticipate d/c tomorrow. PT/OT consulted and patient did not want to participate Supervising Physician Co-Signing Physician Notes Attending attestation Pt seen and examined in concert with Dr. Roach. In agreement with the documented findings as noted in the resident documentation with any exceptions or additions as noted here. Pt resting comfortably in bed, reports that her respiratory status has returned to baseline and would like to go home. Ventral hernia pain is stable and nonradiating, controlled on present regimen. On examination, lungs are diffusely rhonchorous with scattered wheeze. S1/S2 nl Aspiration PNA continue steroid therapy and zosyn to transition to PO augmentin. Continue inhaler therapy as noted. COPD w/ delirium s/p ventilator therapy for acute hypoxic respiratory therapy at baseline O2 use, continue therapy as above. CHF euvolemic at present. Hypothyroidism significantly improved, transition to PO and monitor as outpatient Else as per resident documentation as noted above. Subjective Patient notes that she is feeling better today and is close to being able to go home. She does not want to engage in PT or OT as she says she has very good support at home. She notes her breathing feels close to baseline. She still has a mild cough but notes that her shortness of breath has improved. She denies any chest pain, palpitations, leg swelling, abdominal pain, nausea, vomiting, fevers or chills Review of Systems All systems reviewed & are unremarkable except as noted in HPI & below Physical Exam 2 Vital Signs (Past 24 Hours): Last Vital Signs Temp 36.5 C 05/10/18 15:00 Pulse 79 05/10/18 17:30 Resp 20 05/10/18 12:09 BP 107/42 L 05/10/18 17:30 Pulse Ox 90 05/10/18 12:09 Physical Exam: Constitutional: appears comfortable. in no acute distress Respiratory: normal respiratory effort Auscultation: + diminished lung sounds (Coarse breath sounds over bilateral lung bases), no wheezes Cardiovascular: RRR, no murmur, no edema (Pacemaker in place) Gastrointestinal (Abdomen): Percussion/Palpation: + abdomen tender (Tender over ventral hernia); no guarding
[2018-05-10] MEDS: GABAPENTIN 300 MG CAP PO SCH (21:13)
[2018-05-10] MEDS: DOXYCYCLINE HYCLATE 100 MG CAP PO SCH (21:13)
--- NOTE | 2018-05-10 22:24 | CT Scan Report ---
CT chest wo con CT DOSE: 437.35 mGy.cm HISTORY: Pneumonia Infiltrates in lung TECHNIQUE: Multiaxial CT images of the chest were performed without contrast. A dose lowering techni que was utilized adhering to the principles of ALARA. COMPARISON: 05/05/2018 FINDINGS: Moderate interval improvement in the appearance of the chest. Interval extubation as well a s removal of the nasogastric tube. Pulmonary apices continue to show interstitial change bilaterally. The parenchymal infiltrative june es of the mid and lower lung regions bilaterally are considerably improved. The consolidative change in the prior study is considerably diminished. Findings of a prior median sternotomy are again noted. Findings of a multicystic liver change as well as moderate splenomegaly persists. Findings of reactive mediastinal and hilar adenopathy are also im proved. IMPRESSION: 1. Improved exam. 2. Significant improvement of the consolidative infiltrative changes throughout both hemithoraces wit h moderate residual. 3. Improved mediastinal and hilar adenopathy. 4. Stable multicystic liver change and splenomegaly. 5. Multicystic change of the kidneys is again noted. 6. Interval extubation and removal of the nasogastric tube. The above report was generated using voice recognition software. It may contain grammatical, syntax or spelling errors. Electronically signed by: Martin Ramos M.D. 05/10/2018 10:22 PM
[2018-05-11] MEDS: LEVALBUTEROL 1.25MG/0.5ML NEB INH PRN (01:27)
[2018-05-11] MEDS: IPRATROPIUM BROMIDE NEB SOLN 0.02% 2.5 ML VIAL INH PRN (01:28)
[2018-05-11] MEDS: LEVOTHYROXINE SODIUM 175 MCG TABLET PO SCH (05:53)
[2018-05-11] MEDS: DOXYCYCLINE HYCLATE 100 MG CAP PO SCH ×2 (07:13→18:52)
[2018-05-11] MEDS: BUDESONIDE 0.5 MG/2 ML VIAL (PULMICORT) NEB SCH (07:19)
[2018-05-11] MEDS: HEPARIN SOD 5,000 UNIT/0.5 ML VIAL SQ SCH ×2 (08:10→20:27)
[2018-05-11] MEDS: OXYCODONE/ACETAMINOPHEN 10-325 TAB PO PRN ×2 (08:11→23:53)
[2018-05-11] MEDS: CHOLECALCIFEROL 1,000 UNITS TAB PO SCH (08:12)
[2018-05-11] MEDS: CALCIUM ACETATE 667 MG CAP PO SCH ×3 (08:12→20:27)
[2018-05-11] MEDS: PANTOprazole 40 MG TAB PO SCH (08:12)
[2018-05-11] MEDS: predniSONE 20 MG TAB PO SCH (08:13)
[2018-05-11] MEDS: MIDODRINE HCL 10 MG TAB PO SCH ×3 (08:13→17:34)
[2018-05-11] MEDS: ASPIRIN 81 MG CHEW PO SCH (08:15)
[2018-05-11 09:09] LABS: Basophils # (auto) 0.02 K/uL (0-0.2); Basophils % (auto) 0.4 %; Eosinophils # (auto) 0.01 K/uL (0-0.5); Eosinophils % (auto) 0.2 %; Hematocrit (blood only) 37.3 % (37-47); Immature Granulocytes # (auto) 0.02 K/uL (0.00-0.02); Immature Granulocytes % (auto) 0.4 %; Lymphocytes % (auto) 22.4 %; Mean Corpuscular Volume 98.2 fL (80-100); Mean Platelet Volume 10.5 fL (7.4-10.4); Monocytes # (auto) 0.39 K/uL (0.11-0.59); Monocytes % (auto) 7.3 %; Neutrophils # (auto) 3.72 K/uL (1.4-6.5); Neutrophils % (auto) 69.3 %; Platelet Count 104 K/uL (130-400); RDW Coefficient of Variation 15.2 % (11.5-14.5); RDW Standard Deviation 54.6 fL (36.4-46.3); White Blood Count 5.36 K/uL (4.8-10.8)
[2018-05-11 09:13] LABS: Mean Corpuscular Hgb Conc 32.2 g/dL (32-36)
[2018-05-11 09:41] LABS: Calcium 8.6 mg/dl (8.5-10.1); Creatinine Clr Calc Pharmacy 16.7 ml/min; Est GFR (African American) 13.7; Est GFR (Non-African American) 11.8; Potassium 2.4 mmol/L (3.5-5.1)
[2018-05-11] MEDS ORDERED: LEVALBUTEROL HCL 1.25 MG/3 ML NEB NEB STA (10:20)
[2018-05-11] MEDS ORDERED: POTASSIUM CHLORIDE / WTR 10 MEQ/100 ML PLCT IV ONE (10:30)
[2018-05-11] MEDS: LEVALBUTEROL HCL 1.25 MG/3 ML NEB INH SCH ×5 (10:36→23:10)
--- NOTE | 2018-05-11 10:38 | Nephrology Progress Note ---
Date of Service May 11, 2018 Assessment & Plan (1) ESRD (end stage renal disease) on dialysis: -- Labs ordered and reviewed this am. Primary service has ordered KCl replacement -- Will recheck PRP in am -- No acute indication for HD today (2) Aspiration pneumonia: -- Patient has been transitioned from Zosyn to Doxycycline therapy. No dose adjustment needed for ESRD (3) Hypothyroidism: -- Oral Levothyroxine has been resumed Subjective Mrs. Allen was seen & examined in her hospital room this morning. She was dialyzed yesterday for 4 hours using a 2K bath. There were no complications reported. This morning Mrs. Allen complains of weakness and MALLORY. Respiratory: + dyspnea on exertion Cardiovascular: no chest pain Physical Exam 2 Vital Signs (Past 24 Hours): Last Vital Signs Temp 36.8 C 05/11/18 08:20 Pulse 99 H 05/11/18 08:20 Resp 20 05/11/18 08:20 BP 86/57 L 05/11/18 08:20 Pulse Ox 90 05/11/18 08:20 Eyes: PERRL, conjunctivae normal, anicteric sclerae Neck: trachea midline, no thyromegaly Respiratory: Auscultation: + rales Cardiovascular: Rate/Rhythm: regular rate and regular rhythm Extremities: + AV fistula (+ bruit); no edema Gastrointestinal (Abdomen): normal bowel sounds, soft, nontender, no hepatosplenomegaly Results & Data Laboratory Results Laboratory Tests 05/11/18 05/11/18 08:53 08:53 WBC 5.36 Hgb 12.0 Hct 37.3 Plt Count 104 L Sodium 134 L D Potassium 2.4 L* D Chloride 94 L Carbon Dioxide 28 BUN 20 H D Creatinine 4.06 H D
[2018-05-11] MEDS ORDERED: POTASSIUM CHLORIDE 20 MEQ TABCR PO ONE (11:00)
[2018-05-11] MEDS: LORazepam 1 MG TAB PO PRN (12:00)
--- NOTE | 2018-05-11 17:42 | Family Medicine Progress Note ---
Date of Service May 11, 2018 Assessment & Plan (1) Aspiration pneumonia: (1) Altered mental status: (RESOLVED) 52-year-old with a history of polycystic kidney disease, resulting in ESRD on dialysis, valvular heart disease s/p tricuspid and mitral valve repair, drug abuse, COPD, Hyperlipidemia, systolic heart failure, prior endocarditis, neuropathy, hypothyroidism who presents to the emergency department due to altered mental status. Trial of BiPAP with concurrent administration of naloxone was attempted in the emergency department, however due to her worsening ABG, she was subsequently intubated and placed on a ventilator, subsequently stepped down to floor currently maintaining saturation via NC on 5 L (2) History of drug abuse: - Urine drug screen positive for THC. Gabapentin level elevated at 20 on arrival. - Likely contributed to prior altered mental status (3) Acute respiratory failure with Hypoxia and Hypercarbia: - CT chest on 05/05 showing Extensive pulmonary infiltrates with a dependent distribution lobes highly concerning for extensive aspiration, egroundglass opacity in the upper lobes - s/p bronchoscopy on 05/06 which showed tracheomalacia and excessive dynamic airway collapse - worsening sob, wheezing , currently requiring 5L of oxygen via nasal cannula - wean as tolerated, baseline suppplemental o2 at 3.5 L NC O2 - Chest CT from howing Significant improvement of the consolidative infiltrative changes throughout both hemithoraces - Repeat CXR in the AM - switched Xopenex/Atrovent ,to scheduled q4HR budesonide neb - Given one dose IV solumedrol 40 mg today , Continue prednisone 40mg PO (4) COPD (chronic obstructive pulmonary disease): - as above (5) Aspiration pneumonia: - intially on zosyn 05/06-05/10 for aspiration pneumonia, -Switched to Doxycycline - F/u final BAL and blood cx (6) Acute on chronic systolic heart failure: -Unable to diurese as patient is anuric (7) Hypotension: -resolved -Continue home midodrine 10mg tid (8) S/P mitral valve repair: (9) S/P placement of cardiac pacemaker: (10) S/P tricuspid valve repair: (11) Hypothyroidism: -secondary to poor compliance given significant improvement with TSH - Continue Synthroid (12) End-stage renal disease (ESRD): -secondary to polycystic kidney disease -Follows with Dr. 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 Supervising Physician Co-Signing Physician Notes Attending attestation Pt seen and examined in concert with Dr. Will. In agreement with the documented findings as noted in the resident documentation with any exceptions or additions as noted here. Patient reports significantly worsened respiratory status since early in the morning this morning without apparent provoking event. Increased tightness and SOB with activity, nonproductive cough, fatigue. On examination, decreased breath sounds from previous with scattered wheeze and rhonchi. Acute hypoxic respiratory failure with COPD exacerbation and aspiration PNA continue abx, add single dose of IV steroid this evening and re-asses w/ CXR and clinically in AM, may require higher dose of PO or protracted steroid course. Wean oxygen as tolerated (presently 5L, previously 2-3) Hypokalemia replete, repeat in PM Else per resident documentation as noted. Subjective Patient reports she has worsening cough, sob, wheezing, in addition to fatigue, generalized weakness following dialysis treatment Constitutional: + fatigue and + weakness; no fever and no chills Respiratory: + cough, + dyspnea and + wheezing Cardiovascular: no chest pain, no edema and no calf pain Gastrointestinal: no abdominal pain, no nausea and no vomiting Integumentary: no rash and no lesions Physical Exam 2 Vital Signs (Past 24 Hours): Last Vital Signs Temp 36.6 C 05/11/18 15:52 Pulse 89 05/11/18 15:52 Resp 20 05/11/18 15:52 BP 101/69 05/11/18 15:52 Pulse Ox 92 05/11/18 15:52 Constitutional: WD/WN, vitals as above no acute distress Eyes: PERRL and EOM intact bilaterally ENMT: external ear and nose normal, oropharynx normal Neck: trachea midline, no thyromegaly Respiratory: + cough Auscultation: + diminished lung sounds and + wheezes Cardiovascular: RRR, no murmur, no edema Gastrointestinal (Abdomen): normal bowel sounds, soft, nontender, no hepatosplenomegaly Musculoskeletal: no cyanosis Skin: no rashes, warm and dry no rashes Neurologic: CN's II-XI intact bilaterally (grossly) and awake Cranial Nerves: PERRL Psychiatric: Orientation: alert and oriented x 3 Results & Data Laboratory Results Laboratory Results WBC 5.36 K/uL (4.8-10.8) 05/11/18 08:53 RBC 3.80 M/uL (4.2-5.4) L 05/11/18 08:53 Hgb 12.0 g/dL (12.0-16.0) 05/11/18 08:53 POC Hgb 12.2 g/dl (12.0-16.0) 05/05/18 21:37 Hct 37.3 % (37-47) 05/11/18 08:53 POC Hct 36 % (37-47) L 05/05/18 21:37 MCV 98.2 fL (80-100) 05/11/18 08:53 MCH 31.6 pg (25-34) 05/11/18 08:53 MCHC 32.2 g/dL (32-36) 05/11/18 08:53 RDW Std Deviation 54.6 fL (36.4-46.3) H 05/11/18 08:53 RDW Coeff of Ya 15.2 % (11.5-14.5) H 05/11/18 08:53 Plt Count 104 K/uL (130-400) L 05/11/18 08:53 MPV 10.5 fL (7.4-10.4) H 05/11/18 08:53 Immature Gran % (Auto) 0.4 % 05/11/18 08:53 Neut % (Auto) 69.3 % 05/11/18 08:53 Lymph % (Auto) 22.4 % 05/11/18 08:53 Caroline % (Auto) 7.3 % 05/11/18 08:53 Eos % (Auto) 0.2 % 05/11/18 08:53 Baso % (Auto) 0.4 % 05/11/18 08:53 Immature Gran # (Auto) 0.02 K/uL (0.00-0.02) 05/11/18 08:53 Neut # (Auto) 3.72 K/uL (1.4-6.5) 05/11/18 08:53 Lymph # (Auto) 1.20 K/uL (1.2-3.4) 05/11/18 08:53 Caroline # (Auto) 0.39 K/uL (0.11-0.59) 05/11/18 08:53 Eos # (Auto) 0.01 K/uL (0-0.5) 05/11/18 08:53 Baso # (Auto) 0.02 K/uL (0-0.2) 05/11/18 08:53 Toxic Vacuolation Occasional 05/07/18 04:05 Platelet Estimate Decreased (Normal) 05/09/18 07:24 RBC Morphology Unremarkable 05/06/18 04:41 PT 13.3 Seconds (9.0-12.0) H 05/06/18 04:41 INR 1.3 (0.9-1.1) H 05/06/18 04:41 Sample Site Art Line 05/08/18 05:43 POC pH 7.33 (7.35-7.45) L 05/08/18 05:43 POC pCO2 50 mmHg (35-46) H 05/08/18 05:43 POC pO2 73 mmHg (80-95) L 05/08/18 05:43 POC HCO3 26 tonio/L (19-24) H 05/08/18 05:43 POC Total CO2 28 mEq/l (24-31) 05/08/18 05:43 POC Base Excess 0.0 tonio/L (-9-1.8) 05/08/18 05:43 ABG pH 7.18 (7.35-7.45) L* 05/05/18 17:06 ABG pCO2 76 mmHg (35-46) H 05/05/18 17:06 ABG pO2 64 mm/Hg (80-95) L 05/05/18 17:06 ABG HCO3 28 mmol/L (19-24) H 05/05/18 17:06 POC ABG O2 Sat 93.0 % (90-95) 05/08/18 05:43 ABG O2 Saturation 88.6 % (90-95) L 05/05/18 17:06 ABG Base Excess -2.2 mEq/L (-9-1.8) 05/05/18 17:06 Jeb Test NA 05/08/18 05:43 Barometric Pressure 730.1 mm/Hg 05/05/18 17:06 Oxygen Given 7L 05/05/18 17:06 O2 Delivery Device Ventilator 05/08/18 05:43 POC O2 Rate 20 05/07/18 05:27 Minute Ventilation 8.3 05/07/18 05:27 POC FiO2 40 % 05/08/18 05:43 Tidal Volume 450 05/07/18 05:27 PEEP 5 05/08/18 05:43 POC Sodium 134 mEq/L (135-144) L 05/05/18 21:37 Sodium 134 mmol/L (136-145) L D 05/11/18 08:53 POC Potassium 4.6 mEq/L (3.3-5.0) 05/05/18 21:37 Potassium 2.4 mmol/L (3.5-5.1) L* D 05/11/18 08:53 POC Chloride 94 mEq/L (101-112) L 05/05/18 16:43 Chloride 94 mmol/L (98-107) L 05/11/18 08:53 Carbon Dioxide 28 mmol/L (21-32) 05/11/18 08:53 POC Total CO2 33 mEq/l (24-31) H 05/05/18 16:43 Anion Gap 12.0 (3-11) H 05/11/18 08:53 POC Anion Gap 13.0 mmol/L (16-25) L 05/05/18 16:43 POC BUN 43 mg/dl (7-18) H 05/05/18 16:43 BUN 20 mg/dl (7-18) H D 05/11/18 08:53 Creatinine 4.06 mg/dl (0.6-1.2) H D 05/11/18 08:53 POC Creatinine 6.9 mg/dl (0.6-1.3) H* 05/05/18 16:43 Est Cr Clr Drug Dosing 16.7 ml/min 05/11/18 08:53 Est GFR ( Amer) 13.7 05/11/18 08:53 Est GFR (Non-Af Amer) 11.8 05/11/18 08:53 BUN/Creatinine Ratio 5.0 (10-20) L 05/11/18 08:53 Glucose 106 mg/dl (70-99) H 05/11/18 08:53 POC Glucose 95 (70-99) 05/08/18 13:59 POC Glucose (other) 122 mg/dl (70-99) H 05/07/18 17:29 Estimat Average Glucose 108 mg/dl 05/06/18 04:41 Hemoglobin A1c 5.4 % (4.5-5.6) 05/06/18 04:41 Lactate 1.0 mmol/L (0.4-2.0) 05/08/18 08:37 Calcium 8.6 mg/dl (8.5-10.1) 05/11/18 08:53 POC Ioniz Calcium [place] 1.00 mmol/l (1.12-1.32) L 05/05/18 16:43 Phosphorus 7.8 mg/dl (2.5-4.9) H 05/08/18 04:39 Magnesium 2.3 mg/dl (1.8-2.4) 05/08/18 04:39 Total Bilirubin 0.3 mg/dl (0.2-1) 05/05/18 16:40 AST 29 U/L (15-37) 05/05/18 16:40 ALT 18 U/L (12-78) 05/05/18 16:40 Alkaline Phosphatase 273 U/L (45-117) H 05/05/18 16:40 Troponin I < 0.015 ng/ml (0-0.045) 05/05/18 16:40 Total Protein 8.7 gm/dl (6.4-8.2) H 05/05/18 16:40 Albumin 3.6 gm/dl (3.4-5.0) 05/05/18 16:40 Globulin 5.1 gm/dl (2.5-4.0) H 05/05/18 16:40 Albumin/Globulin Ratio 0.7 (0.9-2) L 05/05/18 16:40 Procalcitonin 1.95 ng/ml (0-0.5) H 05/06/18 04:41 TSH 22.400 uIu/ml (0.300-4.500) H 05/09/18 07:23 Free T4 0.53 ng/dl (0.8-1.6) L 05/05/18 16:40 Free T3 1.03 pg/ml (2.3-4.2) L 05/05/18 17:27 Random Cortisol 29.45 mcg/dl 05/05/18 17:27 Urine Color Cancelled 05/06/18 Unknown Urine Appearance Cancelled 05/06/18 Unknown Urine pH Cancelled 05/06/18 Unknown Ur Specific [place] Cancelled 05/06/18 Unknown Urine Protein Cancelled 05/06/18 Unknown Urine Glucose (UA) Cancelled 05/06/18 Unknown Urine Ketones Cancelled 05/06/18 Unknown Urine Blood Cancelled 05/06/18 Unknown Urine Nitrite Cancelled 05/06/18 Unknown Urine Bilirubin Cancelled 05/06/18 Unknown Urine Urobilinogen Cancelled 05/06/18 Unknown Ur Leukocyte Esterase Cancelled 05/06/18 Unknown Urine WBC (Auto) Cancelled 05/06/18 Unknown Urine RBC (Auto) Cancelled 05/06/18 Unknown U Hyaline Cast (Auto) Cancelled 05/06/18 Unknown U Epithel Cells (Auto) Cancelled 05/06/18 Unknown Urine Bacteria (Auto) Cancelled 05/06/18 Unknown Ur Renal Epithelial Cell Cancelled 05/06/18 Unknown Urine Crystals Cancelled 05/06/18 Unknown Calcium Oxalate Crystal Cancelled 05/06/18 Unknown Uric Acid Crystals Cancelled 05/06/18 Unknown Triple Phos Crystals Cancelled 05/06/18 Unknown Other Crystals Cancelled 05/06/18 Unknown Amorphous Sediment Cancelled 05/06/18 Unknown Granular Casts Cancelled 05/06/18 Unknown Waxy Casts Cancelled 05/06/18 Unknown RBC Casts Cancelled 05/06/18 Unknown WBC Casts Cancelled 05/06/18 Unknown Other Casts Cancelled 05/06/18 Unknown Urine Mucus Cancelled 05/06/18 Unknown Urine Other Cancelled 05/06/18 Unknown Urine Trichomonas Cancelled 05/06/18 Unknown Urine Yeast Cancelled 05/06/18 Unknown Urine Sperm Cancelled 05/06/18 Unknown Ur Oval Fat Bodies Cancelled 05/06/18 Unknown Nasal Screen MRSA (PCR) Negative (Negative) 05/05/18 22:14 Random Vancomycin 17.8 mcg/ml 05/07/18 04:05 Salicylates 2.0 mg/dl (2.8-20) L 05/05/18 16:40 Urine Opiates Screen Neg (Neg) 05/06/18 Unknown Ur Methadone, Qual Neg (Neg) 05/06/18 Unknown Acetaminophen < 2 ug/ml (10-30) L 05/05/18 16:40 Urine Barbiturates Neg (Neg) 05/06/18 Unknown Gabapentin 20.0 mcg/mL 05/06/18 10:43 Ur Phencyclidine (PCP) Neg (Neg) 05/06/18 Unknown U Amphetamin/Meth Scrn Neg (Neg) 05/06/18 Unknown MDMA (Ecstasy) Screen Neg (Neg) 05/06/18 Unknown U Benzodiazepines Scrn Neg (Neg) 05/06/18 Unknown Ur Cocaine Metabolite Neg (Neg) 05/06/18 Unknown U Marijuana (THC) Screen Pos (Neg) H 05/06/18 Unknown U Marijuana THC Carboxy 42 NG/ML (CUTOFF=5) A 05/06/18 Unknown Ethyl Alcohol mg/dL < 3.0 mg/dl (0-3) 05/05/18 17:06 Hep Bs Antigen Neg (Neg) 05/06/18 04:41 Hep Bs Antibody Non-Immune 05/06/18 04:41 Hep Bs Antibody, Quant 4.77 mIU/mL (>or=10mIU/mL Immune) L 05/06/18 04:41 Hepatitis C Antibody Neg (Neg) 05/07/18 04:05 Medications Administered Acetaminophen (Ofirmev) 1,000 mg IV Q8H PRN PRN Reason: Pain Stop: 06/07/18 09:13 Last Admin: 05/09/18 07:50 Dose: 1,000 mg Admin: 05/08/18 09:25 Dose: 1,000 mg Aspirin (Aspirin Chew) 81 mg PO DAILY ROLAND Stop: 06/05/18 08:59 Last Admin: 05/11/18 08:15 Dose: 81 mg Admin: 05/10/18 09:49 Dose: 81 mg Admin: 05/09/18 07:51 Dose: 81 mg Admin: 05/08/18 08:40 Dose: Not Given Admin: 05/07/18 12:35 Dose: 81 mg Calcium Acetate (Phoslo) 1,334 mg PO TID ROLAND Stop: 06/04/18 22:30 Last Admin: 05/11/18 14:14 Dose: Not Given Admin: 05/11/18 08:12 Dose: 667 mg Admin: 05/10/18 21:14 Dose: 1,334 mg Admin: 05/10/18 14:14 Dose: Not Given Admin: 05/10/18 08:10 Dose: 1,334 mg Admin: 05/09/18 20:43 Dose: 1,334 mg Admin: 05/09/18 12:36 Dose: 1,334 mg Admin: 05/09/18 07:47 Dose: 1,334 mg Admin: 05/08/18 20:43 Dose: 1,334 mg Admin: 05/08/18 13:46 Dose: Not Given Admin: 05/08/18 08:39 Dose: Not Given Admin: 05/07/18 21:08 Dose: 1,334 mg Admin: 05/07/18 13:05 Dose: Not Given Admin: 05/07/18 10:17 Dose: Not Given Admin: 05/06/18 21:25 Dose: 1,334 mg Admin: 05/06/18 12:52 Dose: Not Given Admin: 05/06/18 09:38 Dose: Not Given Admin: 05/06/18 00:03 Dose: Not Given Doxycycline Hyclate (Vibramycin) 100 mg PO Q12H ROLAND Stop: 05/17/18 06:59 Last Admin: 05/11/18 07:13 Dose: 100 mg Admin: 05/10/18 21:13 Dose: 100 mg Gabapentin (Neurontin) 300 mg PO HS ROLAND Stop: 06/08/18 20:59 Last Admin: 05/10/18 21:13 Dose: 300 mg Admin: 05/09/18 20:42 Dose: 300 mg Heparin Sodium (Porcine) (Heparin Sodium (Porcine)) 5,000 units SQ Q12 ROLAND Stop: 06/05/18 08:59 Last Admin: 05/11/18 08:10 Dose: 5,000 units Admin: 05/10/18 21:13 Dose: 5,000 units Admin: 05/10/18 08:09 Dose: 5,000 units Admin: 05/09/18 20:50 Dose: 5,000 units Admin: 05/09/18 07:48 Dose: 5,000 units Admin: 05/08/18 20:43 Dose: 5,000 units Admin: 05/08/18 08:41 Dose: 5,000 units Admin: 05/07/18 21:09 Dose: 5,000 units Admin: 05/07/18 10:16 Dose: 5,000 units Admin: 05/06/18 21:25 Dose: 5,000 units Admin: 05/06/18 09:46 Dose: 5,000 units Ipratropium [employer] Mdl (Atrovent 0.02% 0.5mg/2.5ml) 0.5 mg INH Q4R PRN PRN Reason: SOB/WHEEZING Stop: 06/05/18 00:00 Last Admin: 05/11/18 01:28 Dose: 0.5 mg Admin: 05/10/18 07:00 Dose: 0.5 mg Admin: 05/09/18 19:40 Dose: 0.5 mg Admin: 05/08/18 17:28 Dose: 0.5 mg Admin: 05/08/18 14:20 Dose: 0.5 mg Levalbuterol HCl (Xopenex 1.25mg/3ml Neb) 1.25 mg INH Q4R ROLAND Stop: 06/10/18 09:59 Last Admin: 05/11/18 15:11 Dose: 1.25 mg Admin: 05/11/18 12:01 Dose: Not Given Admin: 05/11/18 10:36 Dose: Not Given Levothyroxine Sodium (Synthroid) 175 mcg PO DAILYBB ROLAND Stop: 06/09/18 06:29 Last Admin: 05/11/18 05:53 Dose: 175 mcg Admin: 05/10/18 06:01 Dose: 175 mcg Lorazepam (Ativan) 1 mg PO Q12 PRN PRN Reason: Anxiety Stop: 06/08/18 17:30 Last Admin: 05/11/18 12:00 Dose: 1 mg Admin: 05/10/18 21:14 Dose: 1 mg Admin: 05/10/18 06:03 Dose: 1 mg Midodrine (Proamatine) 10 mg PO TID@0800,1200,1700 [facility] Stop: 06/08/18 11:59 Last Admin: 05/11/18 17:34 Dose: 10 mg Admin: 05/11/18 12:00 Dose: 10 mg Admin: 05/11/18 08:13 Dose: 10 mg Admin: 05/10/18 21:09 Dose: Not Given Admin: 05/10/18 13:51 Dose: 10 mg Admin: 05/10/18 09:50 Dose: 10 mg Admin: 05/09/18 16:47 Dose: 10 mg Admin: 05/09/18 12:36 Dose: 10 mg Multi-Ingredient Cream (Hydrocerin) 1 appln EXT BID PRN PRN Reason: dry skin Stop: 06/05/18 18:12 Last Admin: 05/09/18 07:48 Dose: 1 appln Admin: 05/08/18 13:44 Dose: 1 appln Admin: 05/07/18 10:16 Dose: 1 appln Oxycodone/Acetaminophen (Percocet 10/325mg) 1 tab PO Q12H PRN PRN Reason: Pain Stop: 05/23/18 11:20 Last Admin: 05/11/18 08:11 Dose: 1 tab Admin: 05/10/18 12:04 Dose: 1 tab Admin: 05/10/18 00:03 Dose: 1 tab Pantoprazole Sodium (Protonix) 40 mg PO QAM [facility] Stop: 05/13/18 09:01 Last Admin: 05/11/18 08:12 Dose: 40 mg Admin: 05/10/18 08:11 Dose: 40 mg Prednisone (Prednisone) 40 mg PO DAILY ROLAND Stop: 06/10/18 08:59 Last Admin: 05/11/18 08:13 Dose: 40 mg Vitamin D (Vitamin D3) 1,000 units PO DAILY [facility] Stop: 06/05/18 08:59 Last Admin: 05/11/18 08:12 Dose: 1,000 units Admin: 05/10/18 08:11 Dose: 1,000 units Admin: 05/09/18 07:47 Dose: 1,000 units Admin: 05/08/18 08:40 Dose: Not Given Admin: 05/07/18 10:17 Dose: Not Given Admin: 05/06/18 09:38 Dose: Not Given Discontinued Medications Aspirin (Ecotrin Ectab) 81 mg PO DAILY [facility] Stop: 06/05/18 08:59 Last Admin: 05/07/18 09:55 Dose: Not Given Admin: 05/06/18 10:53 Dose: Not Given Budesonide (Pulmicort Respules) 0.5 mg NEB BIDR [facility] Stop: 06/08/18 19:59 Last Admin: 05/11/18 07:19 Dose: 0.5 mg Admin: 05/10/18 19:12 Dose: Not Given Admin: 05/10/18 07:00 Dose: 0.5 mg Admin: 05/09/18 19:37 Dose: 0.5 mg Epoetin Wilfredo (Procrit) 10,000 units IV TODAY@1100 [facility] Stop: 05/06/18 18:00 Last Admin: 05/06/18 21:05 Dose: Not Given Epoetin Wilfredo (Procrit) 10,000 units IV ONE ONE Stop: 05/09/18 11:10 Last Admin: 05/10/18 16:49 Dose: 10,000 units Fentanyl Citrate (Fentanyl Citrate) 50 mcg IV Q2H PRN PRN Reason: Moderate Pain (4,5,6) Stop: 05/19/18 22:30 Last Admin: 05/08/18 02:59 Dose: 50 mcg Admin: 05/07/18 19:18 Dose: 50 mcg Admin: 05/07/18 13:32 Dose: 50 mcg Admin: 05/07/18 06:10 Dose: 50 mcg Admin: 05/07/18 02:09 Dose: 50 mcg Admin: 05/06/18 21:26 Dose: 50 mcg Admin: 05/06/18 07:32 Dose: 50 mcg Fentanyl Citrate (Fentanyl Citrate) 100 mcg IV NOW STA Stop: 05/06/18 11:42 Last Admin: 05/06/18 11:45 Dose: 100 mcg Fentanyl Citrate (Fentanyl Citrate) 100 mcg IV NOW ONE Stop: 05/06/18 16:31 Last Admin: 05/06/18 15:15 Dose: 100 mcg Heparin Sodium (Porcine) (Heparin Iv Bolus) 3,000 units IV TODAY@1100 [facility] Stop: 05/06/18 18:00 Last Admin: 05/06/18 21:05 Dose: Not Given Heparin Sodium (Porcine) (Heparin Iv Bolus) 3,000 units IV TODAY@0800 [facility] Stop: 05/08/18 16:00 Last Admin: 05/08/18 12:42 Dose: Not Given Heparin Sodium (Porcine) (Heparin Iv Bolus) 3,000 units IV ONE [facility] Stop: 05/09/18 16:00 Last Admin: 05/10/18 15:05 Dose: Not Given Midazolam HCl (Versed) 125 mg in 250 mls @ 2 mls/hr IV .Q24H STA; Protocol Stop: 05/06/18 19:57 Last Admin: 05/06/18 00:02 Dose: Not Given Levothyroxine Sodium 100 mcg/ (Syringe) 5 mls @ 2 mls/min IV TODAY@2230 ONE Stop: 05/05/18 22:32 Last Admin: 05/05/18 23:16 Dose: 2 mls/min Levothyroxine Sodium 100 mcg/ (Syringe) 5 mls @ 2 mls/min IV DAILY@0900 [facility] Stop: 06/05/18 08:59 Last Admin: 05/09/18 08:33 Dose: 2 mls/min Admin: 05/08/18 08:40 Dose: 2 mls/min Admin: 05/07/18 10:16 Dose: 2 mls/min Admin: 05/06/18 09:49 Dose: 2 mls/min Hydrocortisone Sodium (Succinate 50 mg/ Syringe) 1 mls @ 4 mls/min IV Q6 [facility] Stop: 06/04/18 22:29 Last Admin: 05/09/18 11:09 Dose: 4 mls/min Admin: 05/09/18 05:58 Dose: 4 mls/min Admin: 05/09/18 01:47 Dose: 4 mls/min Admin: 05/08/18 18:32 Dose: 4 mls/min Admin: 05/08/18 13:43 Dose: 4 mls/min Admin: 05/08/18 05:48 Dose: 4 mls/min Admin: 05/07/18 23:22 Dose: 4 mls/min Admin: 05/07/18 17:21 Dose: 4 mls/min Admin: 05/07/18 12:34 Dose: 4 mls/min Admin: 05/07/18 06:10 Dose: 4 mls/min Admin: 05/07/18 00:32 Dose: 4 mls/min Admin: 05/06/18 18:39 Dose: 4 mls/min Admin: 05/06/18 12:52 Dose: 4 mls/min Admin: 05/06/18 05:41 Dose: 4 mls/min Admin: 05/05/18 23:16 Dose: 4 mls/min Midazolam HCl (Versed) 125 mg in 250 mls @ 2 mls/hr IV .Q24H STA; Protocol Stop: 05/06/18 22:30 Last Admin: 05/05/18 23:59 Dose: Not Given Pantoprazole Sodium 40 mg/ (Syringe) 10 mls @ 5 mls/min IV DAILY@1100 [facility] Stop: 06/05/18 10:59 Last Admin: 05/09/18 11:09 Dose: 5 mls/min Admin: 05/08/18 08:40 Dose: 5 mls/min Admin: 05/07/18 10:16 Dose: 5 mls/min Admin: 05/06/18 09:49 Dose: 5 mls/min Vancomycin HCl 1,500 mg/ (Sodium Chloride) 530 mls @ 200 mls/hr IV TODAY@0000 [facility] Stop: 05/06/18 02:38 Last Infusion: 05/06/18 03:32 Dose: 0 mls/hr Admin: 05/06/18 00:05 Dose: 200 mls/hr Piperacillin Sod/Tazobactam (Sod 3.375 gm/ Dextrose) 115 mls @ 230 mls/hr IV NOW ONE; Protocol Stop: 05/06/18 00:29 Last Infusion: 05/06/18 01:43 Dose: 0 mls/hr Admin: 05/06/18 01:02 Dose: 230 mls/hr Albumin Human (Albumin 25%) 100 mls @ 50 mls/hr IV Q1H [facility] Stop: 05/09/18 02:14 Last Admin: 05/06/18 04:29 Dose: Not Given Infusion: 05/06/18 04:29 Dose: 100 mls/hr Admin: 05/06/18 04:28 Dose: Not Given Admin: 05/06/18 02:26 Dose: 50 mls/hr Piperacillin Sod/Tazobactam (Sod 3.375 gm/ Dextrose) 115 mls @ 28.75 mls/hr IV Q12H [facility], [facility]; Protocol Stop: 05/13/18 09:59 Last Infusion: 05/10/18 14:11 Dose: 0 mls/hr Admin: 05/10/18 09:50 Dose: 28.8 mls/hr Infusion: 05/10/18 01:45 Dose: 0 mls/hr Admin: 05/09/18 21:31 Dose: 28.8 mls/hr Infusion: 05/09/18 12:37 Dose: 0 mls/hr Admin: 05/09/18 08:33 Dose: 29 mls/hr Infusion: 05/09/18 01:56 Dose: 0 mls/hr Admin: 05/08/18 21:50 Dose: 28.8 mls/hr Infusion: 05/08/18 18:25 Dose: 0 mls/hr Admin: 05/08/18 13:44 Dose: 28.8 mls/hr Infusion: 05/08/18 01:19 Dose: 0 mls/hr Admin: 05/07/18 21:08 Dose: 28.8 mls/hr Infusion: 05/07/18 14:17 Dose: 0 mls/hr Admin: 05/07/18 10:16 Dose: 28.8 mls/hr Infusion: 05/07/18 01:25 Dose: 0 mls/hr Admin: 05/06/18 21:24 Dose: 28.8 mls/hr Infusion: 05/06/18 14:10 Dose: 0 mls/hr Admin: 05/06/18 09:49 Dose: 28.8 mls/hr Norepinephrine Bitartrate 8 mg (/ Dextrose) 508 mls @ 0 mls/hr IV .Q0M PRN; Protocol PRN Reason: TITRATE Stop: 06/05/18 03:25 Last Titration: 05/09/18 08:16 Dose: 0 mcg/kg/min, 0 mls/hr Titration: 05/08/18 14:14 Dose: 0 mcg/kg/min, 0 mls/hr Titration: 05/08/18 13:45 Dose: 0.02 mcg/kg/min, 6.4 mls/hr Titration: 05/08/18 13:15 Dose: 0.04 mcg/kg/min, 12.9 mls/hr Titration: 05/08/18 12:49 Dose: 0.06 mcg/kg/min, 19.3 mls/hr Titration: 05/08/18 11:00 Dose: 0.08 mcg/kg/min, 25.7 mls/hr Titration: 05/08/18 10:00 Dose: 0.1 mcg/kg/min, 32.2 mls/hr Titration: 05/08/18 09:00 Dose: 0.12 mcg/kg/min, 38.6 mls/hr Titration: 05/08/18 07:06 Dose: 0.14 mcg/kg/min, 45 mls/hr Titration: 05/08/18 06:43 Dose: 0.14 mcg/kg/min, 45 mls/hr Admin: 05/08/18 03:16 Dose: 0.15 mcg/kg/min, 48.2 mls/hr Titration: 05/08/18 03:16 Dose: 0.15 mcg/kg/min, 48.2 mls/hr Titration: 05/07/18 20:28 Dose: 0.15 mcg/kg/min, 48.2 mls/hr Titration: 05/07/18 19:55 Dose: 0.14 mcg/kg/min, 45 mls/hr Titration: 05/07/18 18:56 Dose: 0.15 mcg/kg/min, 48.2 mls/hr Admin: 05/07/18 17:22 Dose: 0.15 mcg/kg/min, 48.2 mls/hr Titration: 05/07/18 16:29 Dose: 0.15 mcg/kg/min, 48.2 mls/hr Titration: 05/07/18 10:00 Dose: 0.15 mcg/kg/min, 48.2 mls/hr Titration: 05/07/18 06:51 Dose: 0.16 mcg/kg/min, 51.5 mls/hr Admin: 05/07/18 06:16 Dose: 0.18 mcg/kg/min, 57.9 mls/hr Titration: 05/07/18 06:16 Dose: 0.16 mcg/kg/min, 51.5 mls/hr Titration: 05/07/18 01:21 Dose: 0.18 mcg/kg/min, 57.9 mls/hr Titration: 05/06/18 21:52 Dose: 0.12 mcg/kg/min, 38.6 mls/hr Admin: 05/06/18 19:39 Dose: 0.1 mcg/kg/min, 32.2 mls/hr Titration: 05/06/18 19:39 Dose: 0.1 mcg/kg/min, 32.2 mls/hr Titration: 05/06/18 19:05 Dose: 0.1 mcg/kg/min, 32.2 mls/hr Titration: 05/06/18 08:47 Dose: 0.1 mcg/kg/min, 32.2 mls/hr Titration: 05/06/18 08:01 Dose: 0.09 mcg/kg/min, 28.9 mls/hr Titration: 05/06/18 07:32 Dose: 0.08 mcg/kg/min, 25.7 mls/hr Titration: 05/06/18 07:06 Dose: 0.09 mcg/kg/min, 28.9 mls/hr Titration: 05/06/18 05:30 Dose: 0.09 mcg/kg/min, 28.9 mls/hr Titration: 05/06/18 04:05 Dose: 0.07 mcg/kg/min, 22.5 mls/hr Admin: 05/06/18 03:39 Dose: 0.05 mcg/kg/min, 16.1 mls/hr Vancomycin HCl 500 mg/ Sodium (Chloride) 260 mls @ 125 mls/hr IV TODAY@0700 [facility] Stop: 05/07/18 09:05 Last Infusion: 05/07/18 09:55 Dose: 0 mls/hr Admin: 05/07/18 07:30 Dose: 125 mls/hr Ascorbic Acid 1,500 mg/Thiamine HCl 100 mg/ Sodium Chloride 104 mls @ 207 mls/ hr IV Q6H [facility] Stop: 05/09/18 06:31 Last Infusion: 05/09/18 06:41 Dose: 0 mls/hr Admin: 05/09/18 05:58 Dose: 207 mls/hr Infusion: 05/09/18 02:18 Dose: 0 mls/hr Admin: 05/09/18 01:47 Dose: 207 mls/hr Infusion: 05/08/18 19:02 Dose: 0 mls/hr Admin: 05/08/18 18:31 Dose: 207 mls/hr Infusion: 05/08/18 14:18 Dose: 0 mls/hr Admin: 05/08/18 13:44 Dose: 207 mls/hr Infusion: 05/08/18 06:36 Dose: 0 mls/hr Admin: 05/08/18 05:48 Dose: 207 mls/hr Infusion: 05/07/18 23:55 Dose: 0 mls/hr Admin: 05/07/18 23:21 Dose: 207 mls/hr Infusion: 05/07/18 18:54 Dose: 0 mls/hr Admin: 05/07/18 17:21 Dose: 207 mls/hr Infusion: 05/07/18 13:04 Dose: 0 mls/hr Admin: 05/07/18 12:35 Dose: 207 mls/hr Iron Sucrose 100 mg/ Syringe 5 mls @ 1 mls/min IV TODAY@0800 [facility] Stop: 05/08/18 16:00 Last Admin: 05/08/18 12:42 Dose: 1 mls/min Hydrocortisone Sodium (Succinate 50 mg/ Syringe) 1 mls @ 4 mls/min IV Q8H [facility] Stop: 06/08/18 18:59 Last Admin: 05/10/18 09:57 Dose: 4 mls/min Admin: 05/10/18 02:49 Dose: 4 mls/min Admin: 05/09/18 19:09 Dose: 4 mls/min Potassium Chloride (K Lee / Wtr) 10 meq in 100 mls @ 100 mls/hr IV NOW ONE Stop: 05/11/18 11:29 Last Infusion: 05/11/18 12:05 Dose: 0 mls/hr Admin: 05/11/18 10:43 Dose: 100 mls/hr Ipratropium [employer] (Atrovent 0.02% 0.5mg/2.5ml) 0.5 mg INH Q4R [facility] Stop: 06/05/18 00:00 Last Admin: 05/08/18 09:17 Dose: Not Given Admin: 05/08/18 04:59 Dose: 0.5 mg Admin: 05/07/18 23:53 Dose: 0.5 mg Admin: 05/07/18 20:15 Dose: 0.5 mg Admin: 05/07/18 14:15 Dose: 0.5 mg Admin: 05/07/18 11:43 Dose: 0.5 mg Admin: 05/07/18 07:20 Dose: 0.5 mg Admin: 05/07/18 02:55 Dose: 0.5 mg Admin: 05/06/18 22:15 Dose: 0.5 mg Admin: 05/06/18 19:50 Dose: 0.5 mg Admin: 05/06/18 15:45 Dose: 0.5 mg Admin: 05/06/18 11:13 Dose: 0.5 mg Admin: 05/06/18 07:08 Dose: 0.5 mg Admin: 05/06/18 03:36 Dose: 0.5 mg Admin: 05/05/18 23:30 Dose: 0.5 mg Levalbuterol HCl (Xopenex 1.25mg/0.5ml Neb) 1.25 mg INH Q4R ROLAND Stop: 06/05/18 00:00 Last Admin: 05/08/18 09:17 Dose: Not Given Admin: 05/08/18 05:00 Dose: 1.25 mg Admin: 05/07/18 23:53 Dose: 1.25 mg Admin: 05/07/18 20:15 Dose: 1.25 mg Admin: 05/07/18 14:15 Dose: 1.25 mg Admin: 05/07/18 11:44 Dose: 1.25 mg Admin: 05/07/18 07:22 Dose: 1.25 mg Admin: 05/07/18 02:55 Dose: 1.25 mg Admin: 05/06/18 22:15 Dose: 1.25 mg Admin: 05/06/18 19:50 Dose: 1.25 mg Admin: 05/06/18 15:45 Dose: 1.25 mg Admin: 05/06/18 11:13 Dose: 1.25 mg Admin: 05/06/18 07:08 Dose: 1.25 mg Admin: 05/06/18 03:36 Dose: 1.25 mg Admin: 05/05/18 23:29 Dose: 1.25 mg Levalbuterol HCl (Xopenex 1.25mg/0.5ml Neb) 1.25 mg INH Q4R PRN PRN Reason: SOB/WHEEZING Stop: 06/05/18 00:00 Last Admin: 05/11/18 01:27 Dose: 1.25 mg Admin: 05/10/18 07:00 Dose: 1.25 mg Admin: 05/09/18 19:39 Dose: 1.25 mg Admin: 05/08/18 17:28 Dose: 1.25 mg Admin: 05/08/18 14:20 Dose: 1.25 mg Levalbuterol HCl (Xopenex 1.25mg/3ml Neb) 1.25 mg NEB NOW STA Stop: 05/11/18 10:21 Last Admin: 05/11/18 10:35 Dose: 1.25 mg Lidocaine/Prilocaine (Emla 2.5%) 1 ea EXT NOW ONE Stop: 05/08/18 08:32 Last Admin: 05/08/18 08:41 Dose: 1 ea Lidocaine/Prilocaine (Emla 2.5%) 1 ea EXT TODAY@1200 ONE Stop: 05/10/18 12:01 Last Admin: 05/10/18 13:52 Dose: 1 ea Midazolam HCl (Versed) 1 mg IV Q1H PRN PRN Reason: Agitation Stop: 06/05/18 00:26 Last Admin: 05/07/18 23:21 Dose: 1 mg Admin: 05/07/18 06:10 Dose: 1 mg Admin: 05/07/18 02:10 Dose: 1 mg Midazolam HCl (Versed) 4 mg IV ONE ONE Stop: 05/06/18 11:43 Last Admin: 05/06/18 11:50 Dose: 4 mg Midazolam HCl (Versed) 4 mg IV ONCE PRN PRN Reason: procedure Stop: 05/06/18 18:00 Last Admin: 05/06/18 15:15 Dose: 4 mg Midodrine (Proamatine) 5 mg PO DAILY ROLAND Stop: 06/07/18 17:59 Last Admin: 05/09/18 07:47 Dose: 5 mg Admin: 05/08/18 18:31 Dose: 5 mg Miscellaneous () Confirm Administered Dose 1 ea .ROUTE .STK-MED ONE Stop: 05/05/18 18:46 Last Admin: 05/05/18 23:16 Dose: Not Given Naloxone HCl (Narcan) Confirm Administered Dose 0.4 mg .ROUTE .STK-MED ONE Stop: 05/05/18 16:38 Last Admin: 05/05/18 16:43 Dose: 0.4 mg Naloxone HCl (Narcan) 0.4 mg IV Q2M PRN PRN Reason: RESPIRATORY DEPRESSION Last Admin: 05/05/18 16:49 Dose: 0.4 mg Resident Activity Tracking Resident Involvement: Resident Care Provided Care Provided: Adult Hospital Medicine
[2018-05-11] MEDS ORDERED: methylPREDNISolone 40 MG in SYRINGE 0 ML IV STA (18:01)
[2018-05-11] MEDS: BUDESONIDE 90 MCG INH INH SCH (20:27)
[2018-05-11] MEDS: GABAPENTIN 300 MG CAP PO SCH (20:27)
[2018-05-11 21:09] LABS: BUN Creatinine Ratio 5.4 (10-20); Creatinine Clr Calc Pharmacy 14.5 ml/min; Est GFR (African American) 11.6
[2018-05-11 21:18] LABS: Potassium 3.1 mmol/L (3.5-5.1)
[2018-05-12] MEDS: LEVALBUTEROL HCL 1.25 MG/3 ML NEB INH SCH ×4 (03:11→14:45)
[2018-05-12] MEDS: LEVOTHYROXINE SODIUM 175 MCG TABLET PO SCH (06:26)
[2018-05-12] MEDS: LORazepam 1 MG TAB PO PRN (06:26)
[2018-05-12] MEDS: DOXYCYCLINE HYCLATE 100 MG CAP PO SCH (06:27)
--- NOTE | 2018-05-12 07:15 | XRay Report ---
XR chest 1V portable CLINICAL HISTORY: sob dyspnea COMPARISON STUDY: 05/08/2017 FINDINGS: Interval extubation. Bipolar cardiac pacemaker in good position. Prior median sternotomy. P arenchymal infiltrative change bilaterally is stable. Chronic elevation right hemidiaphragm. IMPRESSION: 1. Interval extubation. 2. Stable bilateral parenchymal infiltrative versus pulmonary edematous change. The above report was generated using voice recognition software. It may contain grammatical, syntax or spelling errors. Electronically signed by: Martin Ramos M.D. 05/12/2018 7:13 AM
[2018-05-12 08:13] LABS: Hematocrit (blood only) 33.9 % (37-47); Hemoglobin 10.8 g/dL (12.0-16.0); Mean Corpuscular Hgb Conc 31.9 g/dL (32-36); Mean Corpuscular Volume 97.4 fL (80-100); Mean Platelet Volume 9.7 fL (7.4-10.4); Platelet Count 125 K/uL (130-400); RDW Standard Deviation 53.3 fL (36.4-46.3); Red Blood Count 3.48 M/uL (4.2-5.4); White Blood Count 4.57 K/uL (4.8-10.8)
[2018-05-12 08:37] LABS: Basophils # (auto) 0.01 K/uL (0-0.2); Basophils % (auto) 0.2 %; Immature Granulocytes # (auto) 0.04 K/uL (0.00-0.02); Immature Granulocytes % (auto) 0.9 %; Lymphocytes # (auto) 0.87 K/uL (1.2-3.4); Monocytes # (auto) 0.39 K/uL (0.11-0.59); Monocytes % (auto) 8.5 %; Neutrophils # (auto) 3.26 K/uL (1.4-6.5); Neutrophils % (auto) 71.4 %
[2018-05-12 08:51] LABS: BUN Creatinine Ratio 5.7 (10-20); Calcium 8.5 mg/dl (8.5-10.1); Creatinine Clr Calc Pharmacy 11.6 ml/min; Est GFR (African American) 9.2; Est GFR (Non-African American) 7.9; Potassium 3.1 mmol/L (3.5-5.1)
[2018-05-12] MEDS: PANTOprazole 40 MG TAB PO SCH (09:04)
[2018-05-12] MEDS: CHOLECALCIFEROL 1,000 UNITS TAB PO SCH (09:04)
[2018-05-12] MEDS: ASPIRIN 81 MG CHEW PO SCH (09:04)
[2018-05-12] MEDS: predniSONE 20 MG TAB PO SCH (09:04)
[2018-05-12] MEDS: MIDODRINE HCL 10 MG TAB PO SCH ×3 (09:05→16:36)
[2018-05-12] MEDS: CALCIUM ACETATE 667 MG CAP PO SCH ×2 (09:06→12:44)
[2018-05-12] MEDS: HEPARIN SOD 5,000 UNIT/0.5 ML VIAL SQ SCH (09:07)
[2018-05-12] MEDS: BUDESONIDE 90 MCG INH INH SCH (09:07)
--- NOTE | 2018-05-12 10:07 | Nephrology Progress Note ---
Date of Service May 12, 2018 Assessment & Plan (1) ESRD (end stage renal disease) on dialysis: -- Potassium is improved. No acute indication for HD today (2) Aspiration pneumonia: -- Patient still has rales on physical exam but she is subjectively improved and breathing easily on O2 at 2L / min NC. -- Continue Doxycycline, Budesonide and Prednisone as per primary service (3) Hypothyroidism: -- Oral Levothyroxine has been resumed Subjective Mrs. Allen was seen & examined in her hospital room this morning. She reports that her breathing is improved. She is hopeful that she will be able to return home soon. Respiratory: + dyspnea on exertion Physical Exam 2 Vital Signs (Past 24 Hours): Last Vital Signs Temp 36.6 C 05/12/18 07:31 Pulse 82 05/12/18 07:31 Resp 20 05/12/18 07:31 BP 88/54 L 05/12/18 07:31 Pulse Ox 90 05/12/18 07:31 Eyes: PERRL, conjunctivae normal, anicteric sclerae Neck: trachea midline, no thyromegaly Respiratory: Auscultation: + rales Cardiovascular: Rate/Rhythm: regular rate and regular rhythm Extremities: + AV fistula (+ bruit); no edema Gastrointestinal (Abdomen): normal bowel sounds, soft, nontender, no hepatosplenomegaly Results & Data Laboratory Results Laboratory Tests 05/12/18 05/12/18 07:57 07:57 WBC 4.57 L Hgb 10.8 L Hct 33.9 L Plt Count 125 L Sodium 132 L Potassium 3.1 L Chloride 92 L Carbon Dioxide 26 BUN 32 H Creatinine 5.66 H* D Glucose 98
[2018-05-12] MEDS: OXYCODONE/ACETAMINOPHEN 10-325 TAB PO PRN (12:42)
--- NOTE | 2018-05-12 18:56 | Discharge Summary ---
Date of Service May 12, 2018 Admission HPI Per Admitting Provider The patient is a 52-year-old female with a past medical history including valvular heart disease, systolic heart failure, COPD, drug abuse, endocarditis, bacteremia, hypertension, hyperlipidemia, ESRD on dialysis, neuropathy, tricuspid valve repair, mitral valve repair, all complicated by medical noncompliance. She arrived to the emergency department via ALS from home, where she is usually on 3.5 L of oxygen via nasal cannula. Admission Exam (Per Admitting) Constitutional The patient is sedated and intubated. Exam limited due to intubation status. HEENT--pupils pinpoint but reactive. Mucous membranes and oropharynx dry. Neck--No JVD. No bruits. Thyroid normal, trachea midline, no adenopathy. Heart--normal S1 and S2. No murmurs, rubs or gallops. Lungs--coarse breath sounds with wheezes bilaterally. Abdomen--normal bowel sounds and soft. Nondistended. Obese Extremities--no cyanosis or clubbing. Bilateral pretibial 1-2+ pitting edema. There are good distal pulses b/l. Dermatologic--normal skin turgor, normal color, no abnormal lymph nodes, no rash. Neurologic--limited exam Rheumatologic--limited exam Psychiatric--sedate Discharge Data Consultations 05/05/18 19:58 ED Decision to Admit Stat 05/05/18 22:31 Consult Case Management - Discharge Planning Routine Consult [place] Routine Consult Nephrology Routine Hospital Course (1) Aspiration pneumonia: (1) Altered mental status: (RESOLVED) 52-year-old with a history of polycystic kidney disease, resulting in ESRD on dialysis, valvular heart disease s/p tricuspid and mitral valve repair, drug abuse, COPD, Hyperlipidemia, systolic heart failure, prior endocarditis, neuropathy, hypothyroidism who presents to the emergency department due to altered mental status. Trial of BiPAP with concurrent administration of naloxone was attempted in the emergency department, however due to her worsening ABG, she was subsequently intubated and placed on a ventilator, subsequently stepped down to floor currently maintaining saturation via NC on 5 L (2) History of drug abuse: - Urine drug screen positive for THC. Gabapentin level elevated at 20 on arrival. - Likely contributed to prior altered mental status (3) Acute respiratory failure with Hypoxia and Hypercarbia: - CT chest on 05/05 showing Extensive pulmonary infiltrates with a dependent distribution lobes highly concerning for extensive aspiration, groundglass opacity in the upper lobes - s/p bronchoscopy on 05/06 which showed tracheomalacia and excessive dynamic airway collapse - worsening sob, wheezing , currently requiring 5L of oxygen via nasal cannula - wean as tolerated, baseline suppplemental o2 at 3.5 L NC O2 - Chest CT from 05/10 showing Significant improvement of the consolidative infiltrative changes throughout both hemithoraces - Repeat CXR in the AM - switched Xopenex/Atrovent ,to scheduled q4HR budesonide neb from prn - Given one dose IV solumedrol 40 mg day before departure due worsening sob , wheezing -Patient was discharged with Prednisone taper 40 mg daily x 3 days 30 mg daily x 3 days, 20 mg daily x 3 days 10 mg daily x 3 days d (4) COPD (chronic obstructive pulmonary disease): - as above (5) Aspiration pneumonia: - initially on zosyn 05/06-05/10 for aspiration pneumonia, -Switched to Doxycycline - final BAL and blood cx showing normal estephania, and yeast likely from contamination -After considerable clinical improvement, patient was discharged with additional 8 days of doxycycline for a total of 14 days antibiotic treatment (6) Acute on chronic systolic heart failure: -Unable to diurese as patient is anuric (7) Hypotension: -resolved -Continue home midodrine 10mg tid (8) S/P mitral valve repair: stable (9) S/P placement of cardiac pacemaker: stable (10) S/P tricuspid valve repair: stable (11) Hypothyroidism: -secondary to poor compliance given significant improvement with TSH - restarted Synthroid (12) End-stage renal disease (ESRD): -secondary to polycystic kidney disease - dialysis Sunday, Sunday, Sunday (13) Ventral hernia: -No evidence of strangulation as noted on CT abdomen and pelvis - Continued Percocet 10mg bid (14) Anemia: - secondary to CKD, improved s/p procrit administration - continued to monitor CBC (15) Liver cirrhosis: - 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) -CT abdomen and pelvis suggestive of liver cirrhosis -Hepatitis B and C serology negative -Alk phos elevated on arrival , but AST and ALT normal (16) Chronic anxiety: - continue home ativan prn (17) Neuropathy: - [place] gabapentin (18) GERD (gastroesophageal reflux disease): - Continue 40mg p.o protonix daily (19) Thrombocytopenia: -Platelet level increasing - Continue to monitor -CT abdomen and pelvis showed splenomegaly, possibly contributing to platelet consumption DVT prophylaxis: heparin 5,000 SQ q12h Discharge Instructions You were treated for exacerbation of your COPD and Pneumonia You will be be going home on antibiotics ( Doxycycline) for 6 more days.You will also be taking sent home a tapering dose of steroids (Prednisone) which will start at 4 pills daily and decrease by 1 pill daily every 3 days . You will also receive inhaled steroid (Pulmicort) -Please take medication as per instructions. -Please follow up with your primary care provider ( Dr. Hugo) within 1 week for followup When to call your healthcare provider Call your provider immediately if you have any of the following: Shortness of breath, wheezing, or coughing Increased mucus Yellow, green, bloody, or smelly mucus Fever or chills Tightness in your chest that does not go away with rest or medicine An irregular heartbeat or a feeling that your heart is beating very fast Swollen ankles Supervising Physician Co-Signing Physician Notes Attending attestation Pt seen and examined in concert with Dr. Will. In agreement with the documented findings as noted in the resident documentation with any exceptions or additions as noted here. Considerable improvement in respiratory status, now with minimal shortness of breath and wheezing at rest. Tolerating short bouts of ambulation with walker and support. Deferred PT evaluation multiple times. On examination, S1/S2 nl RRR no MCG. Diffuse rhonchi and wheeze improved from previous with increased air movement. Acute hypoxic respiratory failure with COPD exacerbation and aspiration PNA complete course of abx, with steroid taper. O2 use at baseline ESRD on HD MWF scheduled appointment on Mon at 0330 per pt Substance use defer prescription of chronic home medications with close PCP follow up Else per resident documentation as noted. Resident Activity Tracking Resident Involvement: Resident Care Provided Care Provided: Adult Hospital Medicine
== END 2018-05-12 18:19 | disposition home or self-care (01) | DRG 853 ==
LOC: ED 15:40 → SUATTDRO 20:48 → 1E 20:48 → 2W 05-08 20:15
DX: Q61.2 Polycystic kidney, adult type; F41.9 Anxiety disorder, unspecified; J69.0 Pneumonitis due to inhalation of food and vomit; K74.60 Unspecified cirrhosis of liver; Z99.2 Dependence on renal dialysis; J96.21 Acute and chronic respiratory failure with hypoxia; Z99.81 Dependence on supplemental oxygen; I95.9 Hypotension, unspecified; E78.5 Hyperlipidemia, unspecified; K43.9 Ventral hernia without obstruction or gangrene; E03.9 Hypothyroidism, unspecified; J96.22 Acute and chronic respiratory failure with hypercapnia; N18.6 End stage renal disease; F32.9 Major depressive disorder, single episode, unspecified; D69.6 Thrombocytopenia, unspecified; A41.9 Sepsis, unspecified organism; J44.9 Chronic obstructive pulmonary disease, unspecified; I38 Endocarditis, valve unspecified; I50.23 Acute on chronic systolic (congestive) heart failure; Z79.82 Long term (current) use of aspirin; Z95.0 Presence of cardiac pacemaker; G47.33 Obstructive sleep apnea (adult) (pediatric)

== ENCOUNTER 2020-01-15 10:58 | Inpatient (IN) ==
[2020-01-15] MEDS ORDERED: NovoLIN-R INSULIN PER UNIT CHARGE IV STA (11:31)
[2020-01-15] MEDS ORDERED: CALCIUM CHLORIDE 10% 1,000 MG in SODIUM CHLORIDE 0.9% 50 ML IV STA (11:31)
[2020-01-15] MEDS ORDERED: DEXTROSE 50% 50 ML SYRINGE IV ONE ×2 (11:31→14:38)
[2020-01-15] MEDS ORDERED: SODIUM BICARB 8.4% INJ 50 MEQ/50 ML SYR IV STA (11:32)
[2020-01-15 11:50] LABS: Basophils # (auto) 0.01 K/uL (0-0.2); Basophils % (auto) 0.1 %; Eosinophils # (auto) 0.04 K/uL (0-0.5); Eosinophils % (auto) 0.4 %; Hematocrit (blood only) 43.4 % (37-47); Hemoglobin 13.7 g/dL (12.0-16.0); Immature Granulocytes # (auto) 0.02 K/uL (0.00-0.02); Immature Granulocytes % (auto) 0.2 %; Lymphocytes # (auto) 1.46 K/uL (1.2-3.4); Lymphocytes % (auto) 15.7 %; Mean Corpuscular Hemoglobin 31.3 pg (25-34); Mean Corpuscular Hgb Conc 31.6 g/dL (32-36); Mean Corpuscular Volume 99.1 fL (80-100); Mean Platelet Volume 11.1 fL (7.4-10.4); Monocytes % (auto) 5.4 %; Neutrophils # (auto) 7.28 K/uL (1.4-6.5); Neutrophils % (auto) 78.2 %; Platelet Count 172 K/uL (130-400); RDW Coefficient of Variation 15.2 % (11.5-14.5); RDW Standard Deviation 54.8 fL (36.4-46.3); Red Blood Count 4.38 M/uL (4.2-5.4); White Blood Count 9.31 K/uL (4.8-10.8)
[2020-01-15] MEDS ORDERED: SODIUM CHLORIDE 0.9% 1000ML 500 ML IV ONE (11:59)
[2020-01-15] MEDS ORDERED: ALBUTEROL 0.5% NEB SOLN 2.5 MG/0.5 ML VIAL NEB STA (11:59)
--- NOTE | 2020-01-15 12:02 | XRay Report ---
XR chest 1V portable CLINICAL HISTORY: weakness COMPARISON STUDY: 02/05/2019 FINDINGS: There are postsurgical changes of midline sternotomy and valvular replacement. There is a r ight subclavian dual-chamber central venous pacemaker. The cardiac and mediastinal contours remain st able. There is persistent elevation right hemidiaphragm. There are persistent bilateral pulmonary air space opacities. There are prominent eggshell calcifications within the soft tissues of the left uppe r arm. These potentially are vascular, related to chronic venous aneurysms..[ IMPRESSION: 1. Bilateral interstitial and groundglass pulmonary opacities. These remain similar to the preceding study. Diagnostic considerations include pulmonary edema, or a bilateral infectious/inflammatory proc ess. ACT 112: Negative or not required by law. Electronically signed by: Jude Melo M.D. 01/15/2020 12:01 PM
--- NOTE | 2020-01-15 12:10 | Emergency Department Note ---
Impression & Plan Hyperkalemia, Chronic systolic heart failure, ESRD on hemodialysis, Medical non-compliance, Syncope ED Provider Note Provider: Mike Armas MD DATE OF SERVICE:01/15/2020 CHIEF COMPLAINT: Missed dialysis, leg pain, chest pain, syncope HISTORY OF PRESENT ILLNESS: Patient is a 54-year-old female history of CHF, COPD, neuropathy, end-stage renal disease on dialysis who missed her dialysis ye sterday presenting with her son from home today due to chest pain and weakness. Patient states that she had some pain in her ventral hernia yesterday and did make a dialysis. Today she passed out in the car on the way here. Patient states she has some leg pain and some 4 of 10 chest pain. Patient states she feels little bit short of breath and again still has a little bit of upper abdominal pain around her hernia. Patient presents with son who is quite anxious regarding his mother's health. He states that she is noncompliant with her home medications particularly the binder medications. He reports that had issues with dialysis with her potassium going up. Patient denies any activation of her defibrillator. She reports burning pain of the bilateral legs. Often has issues with low blood pressures on midodrine. REVIEW OF SYSTEMS: A total of 10 review of systems was obtained and negative except as stated above in the HPI. PAST MEDICAL HISTORY: As noted above MEDICATIONS: Reviewed home medication list but again compliance issues SOCIAL HISTORY: Recently , lives at home with sons PHYSICAL EXAM: GENERAL: alert and oriented on stretcher appears fatigued and diaphoretic Head: normocephalic and atraumatic EYES: No injection, discharge or icterus. NECK: Trachea midline. Supple. ENT: Mucous membranes pink and moist. LUNGS: Airway patent. No retractions. Breath sounds diminished in the bases HEART: Tachycardic rate and rhythm. No chest wall tenderness ABDOMEN: Soft with slight tenderness of a large upper abdominal wall ventral hernia but this is quite soft. Not peritoneal. SKIN: Acyanotic, warm mildly diaphoretic EXTREMITIES: Without significant swelling. Endorses burning of the bilateral feet but no significant tenderness. NEUROLOGICAL: No focal deficits. No aphasia. No facial droop or slurred speech. EKG #1: Approximately 105 paced beats per rhythm () and with extremely wide QRS difficult to consider ST segment change given the near sinusoidal findings and this is a significant change compared to previous available from February 052018. Repeat EKG shortly after this at 11:27:42 is similar with an extremely wide QRS as this is similar from 11:37 AM a paced rhythm of proximally 100 bpm with widened QRS. CONTINUOUS CARDIAC MONITORING: was ordered and showed a heart rate of 104 bpm in ventricular paced rhythm with extremely wide QRS occasionally atrially paced Patient's laboratory studies and imaging reviewed. Differential includes Infection, dehydration, metabolic abnormality, hypo/hyperglycemia, electrolyte disturbance, anemia, hypoxia, cardiac sources, intracerebral event, toxicologic, neurologic, as well as other pathologies. IMPRESSION/MEDICAL DECISION MAKING: Patient presents with syncope generalized weakness with abdominal pain and some shortness of breath. Missed dialysis yesterday as she stated that her stomach was bothering her. EKG is highly concerning upon arrival for hyperkalemia and almost sinusoidal. Point care blood work was immediately obtained and IV access was initiated. Patient was given 1 g of intravenous calcium chloride given severity of her derangement with a potassium of 9.5. She received 1 amp of bicarb and 10 units of regular insulin IV as well as an amp of D50. Albuterol inhaled solution was ordered. Patient given a small fluid bolus. An additional gram of calcium gluconate was ordered. Nephrology was emergently consulted and plan to come to the emergency department to evaluate the patient and plan for emergent dialysis. Patient had some slight burning with the initiation of the IV calcium chloride but no evidence of extravasation and this rapidly resolved. Patient's QRS complex seem to narrow some on the monitor. Hospitalist was contacted for admission orders to facilitate dialysis. Basic labs showed beyond the acute hyperkalemia of 9.5, creatinine of 8.2, glucose of 136, mild hyponatremia of 130, elevated lactate of 2.3, no significant transaminitis, negative troponin, normal TSH, no anemia, no leukocytosis. Seems unlikely to be acutely infectious at this point. Chest x-ray with evidence of possibly some mild fluid overload. Patient on a small amount of oxygen at this point but appears more comfortable and not in any acute respiratory distress. Again will be admitted with need for emergent dialysis to the ICU. Abdominal ventral hernia is mildly tender but did not is acutely strangulated or incarcerated at this point. Deferring further abdominal imaging at this time given the emergent metabolic hyperkalemia that needs correcting. Pacemaker interrogation was ordered for the patient. DIAGNOSIS: Acute hyperkalemia, syncope, abdominal pain, shortness of breath DISPOSITION: Hospitalist will evaluate Patient was agreeable with this plan. Son was updated and agreeable with this plan as well at bedside Critical Care I have personally spent 48 minutes of critical care time in the direct management of this patient. This includes bedside care, interpretation of diagnostic studies, and testing, discussion with consultants, patient, and family members, and other required patient management activities. These 48 minutes is in excess of all separately billable procedures. Past Med/Surg History Medical History (Updated 01/15/20 @ 18:14 by Mike Armas M.D.) Anemia Chronic anxiety (Unknown) Chronic systolic heart failure COPD (chronic obstructive pulmonary disease) Depression Dyslipidemia ESRD (end stage renal disease) on dialysis H/O echocardiogram "11/2013: Moderate systolic dysfunction with 40% ejection fraction, status post mitral and tricuspid repair, mild tricuspid regurgitation." History of drug abuse History of endocarditis History of valvular heart disease "s/p mitral and tricuspid valve repair 12/2012" Hyperkalemia Neuropathy Polycystic kidney disease, adult type (Unknown) Sleep apnea (Unknown) Surgical History (Updated 01/15/20 @ 13:41 by Bunny Ku) S/P hernia repair ventral -- 8 separate surgeries for such; still has hernia S/P mitral valve repair "12/2012" S/P placement of cardiac pacemaker "12/2012" S/P right and left heart catheterization "2012- minor luminal regularities of the coronary arteries, severe pulmonary hypertension, with markedly elevated pulmonary capillary wedge pressure" S/P tonsillectomy S/P tricuspid valve repair "12/2012" Family History (Updated 01/15/20 @ 13:42 by Bunny Ku) Father Kidney disease had ESRD and was on dialysis Other No pertinent family history in first degree relatives Social History (Updated 01/15/20 @ 13:42 by Bunny Ku) Smoking Status: Current every day smoker Tobacco Type: Cigarettes packs per day: 0.5; Second Hand Exposure: No; Do You Dip or Chew Tobacco: No; Hx Alcohol Use: No Hx Substance Use: No Preferred Language: Mauritanian Communication Ability: Effective Dining Host Required: No Beliefs That Will Affect Care: None marital status: / Current Living Situation: Family Current Living Situation Comment: lives with son current occupational status: disabled How many Children do You have: 5 Other Information That Helps Us Care for You: No Feels Safe at Home: Yes Safety Concerns: Feels Safe At This Time Assistive Devices: Glasses, Oxygen - Continuous and Wheelchair Allergies Allergies Allergy/AdvReac Type Severity Reaction Status Date / Time No Known Allergies Allergy Verified 01/15/20 14:51 Home Meds Home Medications Medication Instructions Recorded Confirmed cholecalciferol (vitamin D3) 1,000 unit PO DAILY 05/05/18 01/15/20 calcium acetate(phosphat bind) 1,334 mg PO TIDM 01/29/19 01/15/20 lidocaine-prilocaine 1 applic TOPICAL DIRECTED PRN 01/15/20 01/15/20 Previous Rx's Medication Instructions Recorded cefuroxime axetil 500 mg tablet 500 mg PO BID #20 tab 04/18/19 levothyroxine 175 mcg tablet 175 mcg PO DAILY #90 tab 05/21/19 midodrine 10 mg tablet 10 mg PO TID #90 tab 11/24/19 albuterol sulfate 90 mcg/actuation 2 inh INHALATION Q6H PRN #18 g 11/28/19 aerosol inhaler gabapentin 300 mg capsule 300 mg PO HS #14 cap 01/05/20 lorazepam 1 mg tablet 1 mg PO Q12H PRN #28 tab 01/05/20 oxycodone-acetaminophen 10 mg-325 1 tab PO Q8H PRN #42 tab 01/05/20 mg tablet Results & Data (ED) Vital Signs Vital Signs - 24 hr 01/15/20 11:06 01/15/20 11:26 01/15/20 11:31 Temperature 36.8 C Temperature Source Oral Pulse Rate 102 H 105 H Pulse Rate [Finger] Pulse Rate from SpO2 Sensor 114 H Respiratory Rate 24 25 H Respiratory Effort / Characteristics Blood Pressure 106/64 130/81 Blood Pressure [Right Arm] Blood Pressure Mean 78 105 Blood Pressure Mean [Right Arm] Pulse Oximetry 94 93 94 Oxygen Delivery Method Nasal Cannula Nasal Cannula Oxygen Flow Rate 4 4 Sepsis Recent Fever Within 48 Hours No Sepsis New/Unexplained Change in Mental Status N/A Sepsis Action Taken by Nursing No Action Required 01/15/20 11:59 01/15/20 12:00 01/15/20 12:15 Temperature Temperature Source Pulse Rate 101 H 102 H 103 H Pulse Rate [Finger] Pulse Rate from SpO2 Sensor 100 H 98 H 103 H Respiratory Rate 21 25 H 22 Respiratory Effort / Characteristics Blood Pressure 99/59 L 107/66 108/67 Blood Pressure [Right Arm] Blood Pressure Mean 73 82 79 Blood Pressure Mean [Right Arm] Pulse Oximetry 96 97 98 Oxygen Delivery Method Oxygen Flow Rate Sepsis Recent Fever Within 48 Hours Sepsis New/Unexplained Change in Mental Status Sepsis Action Taken by Nursing 01/15/20 12:20 01/15/20 12:30 01/15/20 12:45 Temperature Temperature Source Pulse Rate 103 H 103 H Pulse Rate [Finger] 101 H Pulse Rate from SpO2 Sensor 102 H 102 H Respiratory Rate 20 27 H 24 Respiratory Effort / Characteristics Non-Labored Spontaneous Blood Pressure 109/70 122/79 Blood Pressure [Right Arm] Blood Pressure Mean 86 87 Blood Pressure Mean [Right Arm] Pulse Oximetry 96 97 97 Oxygen Delivery Method Oxymask Oxygen Flow Rate 9 Sepsis Recent Fever Within 48 Hours Sepsis New/Unexplained Change in Mental Status Sepsis Action Taken by Nursing 01/15/20 12:55 01/15/20 12:56 01/15/20 13:00 Temperature Temperature Source Pulse Rate 102 H 101 H Pulse Rate [Finger] 101 H Pulse Rate from SpO2 Sensor 102 H 101 H Respiratory Rate 17 12 Respiratory Effort / Characteristics Spontaneous Blood Pressure 110/78 121/78 Blood Pressure [Right Arm] 110/78 Blood Pressure Mean 90 86 Blood Pressure Mean [Right Arm] 88 Pulse Oximetry 96 96 96 Oxygen Delivery Method Oxymask Oxygen Flow Rate 10 Sepsis Recent Fever Within 48 Hours Sepsis New/Unexplained Change in Mental Status Sepsis Action Taken by Nursing 01/15/20 13:15 01/15/20 13:30 Temperature Temperature Source Pulse Rate 93 H 93 H Pulse Rate [Finger] Pulse Rate from SpO2 Sensor 105 H 93 H Respiratory Rate Respiratory Effort / Characteristics Blood Pressure 112/72 135/83 Blood Pressure [Right Arm] Blood Pressure Mean 96 90 Blood Pressure Mean [Right Arm] Pulse Oximetry 96 Oxygen Delivery Method Nasal Cannula Nasal Cannula Oxygen Flow Rate 4 4 Sepsis Recent Fever Within 48 Hours Sepsis New/Unexplained Change in Mental Status Sepsis Action Taken by Nursing Laboratory Data Result diagrams: 01/15/20 11:40 01/15/20 11:40 Lab Results 01/15/20 01/15/20 01/15/20 Range/Units 11:37 11:40 11:40 WBC 9.31 (4.8-10.8) K/uL RBC 4.38 (4.2-5.4) M/uL Hgb 13.7 (12.0-16.0) g/dL POC Hgb (12.0-16.0) g/dl Hct 43.4 (37-47) % POC Hct (37-47) % MCV 99.1 (80-100) fL MCH 31.3 (25-34) pg MCHC 31.6 L (32-36) g/dL RDW Std Deviation 54.8 H (36.4-46.3) fL RDW Coeff of Ya 15.2 H (11.5-14.5) % Plt Count 172 (130-400) K/uL MPV 11.1 H (7.4-10.4) fL Immature Gran % (Auto) 0.2 % Neut % (Auto) 78.2 % Lymph % (Auto) 15.7 % [facility] % (Auto) 5.4 % Eos % (Auto) 0.4 % Baso % (Auto) 0.1 % Neut # (Auto) 7.28 H (1.4-6.5) K/uL Lymph # (Auto) 1.46 (1.2-3.4) K/uL [facility] # (Auto) 0.50 (0.11-0.59) K/uL Eos # (Auto) 0.04 (0-0.5) K/uL Baso # (Auto) 0.01 (0-0.2) K/uL Immature Gran # (Auto) 0.02 (0.00-0.02) K/uL PT 11.0 (9.0-12.0) Seconds INR 1.0 (0.9-1.1) POC Sodium (135-144) mmol/L Sodium (136-145) mmol/L POC Potassium (3.3-5.0) mmol/L Potassium (3.5-5.1) mmol/L POC Chloride (101-112) mmol/L Chloride (98-107) mmol/L Carbon Dioxide (21-32) mmol/L POC Total CO2 (24-31) mmol/L Anion Gap (3-11) POC Anion Gap POC BUN (7-18) mg/dl BUN (7-18) mg/dl Creatinine (0.6-1.2) mg/dl POC Creatinine (0.6-1.3) mg/dl Est Cr Clr Drug Dosing Est GFR ( Amer) Est GFR (Non-Af Amer) BUN/Creatinine Ratio (10-20) Glucose (70-99) mg/dl POC Glucose (other) (70-99) mg/dl Lactate 2.3 H* (0.4-2.0) mmol/L Calcium (8.5-10.1) mg/dl POC Ioniz Calcium Chivo (1.12-1.32) mmol/l Phosphorus (2.5-4.9) mg/dl Magnesium (1.8-2.4) mg/dl Total Bilirubin (0.2-1) mg/dl AST (15-37) U/L ALT (12-78) U/L Alkaline Phosphatase (45-117) U/L Troponin I (0-0.045) ng/ml Total Protein (6.4-8.2) gm/dl Albumin (3.4-5.0) gm/dl Globulin (2.5-4.0) gm/dl Albumin/Globulin Ratio (0.9-2) Lipase (73-393) U/L TSH (0.300-4.500) uIu/ml Specimen Hemolysis 01/15/20 01/15/20 01/15/20 Range/Units 11:40 11:40 11:50 WBC (4.8-10.8) K/uL RBC (4.2-5.4) M/uL Hgb (12.0-16.0) g/dL POC Hgb 16.3 H (12.0-16.0) g/dl Hct (37-47) % POC Hct 48 H (37-47) % MCV (80-100) fL MCH (25-34) pg MCHC (32-36) g/dL RDW Std Deviation (36.4-46.3) fL RDW Coeff of Ya (11.5-14.5) % Plt Count (130-400) K/uL MPV (7.4-10.4) fL Immature Gran % (Auto) % Neut % (Auto) % Lymph % (Auto) % [facility] % (Auto) % Eos % (Auto) % Baso % (Auto) % Neut # (Auto) (1.4-6.5) K/uL Lymph # (Auto) (1.2-3.4) K/uL [facility] # (Auto) (0.11-0.59) K/uL Eos # (Auto) (0-0.5) K/uL Baso # (Auto) (0-0.2) K/uL Immature Gran # (Auto) (0.00-0.02) K/uL PT (9.0-12.0) Seconds INR (0.9-1.1) POC Sodium 129 L (135-144) mmol/L Sodium 130 L (136-145) mmol/L POC Potassium > 9.0 H* (3.3-5.0) mmol/L Potassium 9.5 H* (3.5-5.1) mmol/L POC Chloride 98 L (101-112) mmol/L Chloride 95 L (98-107) mmol/L Carbon Dioxide 27 (21-32) mmol/L POC Total CO2 26 (24-31) mmol/L Anion Gap 8.0 (3-11) POC Anion Gap TNP POC BUN 74 H (7-18) mg/dl BUN 65 H (7-18) mg/dl Creatinine 8.82 H* (0.6-1.2) mg/dl POC Creatinine 8.4 H* (0.6-1.3) mg/dl Est Cr Clr Drug Dosing Not Reportable Est GFR ( Amer) 5.3 Est GFR (Non-Af Amer) 4.6 BUN/Creatinine Ratio 7.4 L (10-20) Glucose 136 H (70-99) mg/dl POC Glucose (other) 141 H (70-99) mg/dl Lactate (0.4-2.0) mmol/L Calcium 9.6 (8.5-10.1) mg/dl POC Ioniz Calcium Chivo 1.01 L (1.12-1.32) mmol/l Phosphorus 9.5 H (2.5-4.9) mg/dl Magnesium 3.1 H (1.8-2.4) mg/dl Total Bilirubin 0.4 (0.2-1) mg/dl AST 10 L (15-37) U/L ALT 8 L (12-78) U/L Alkaline Phosphatase 181 H (45-117) U/L Troponin I < 0.015 (0-0.045) ng/ml Total Protein 8.1 (6.4-8.2) gm/dl Albumin 3.9 (3.4-5.0) gm/dl Globulin 4.2 H (2.5-4.0) gm/dl Albumin/Globulin Ratio 0.9 (0.9-2) Lipase 111 (73-393) U/L TSH 1.330 (0.300-4.500) uIu/ml Specimen Hemolysis Administered Medications Albuterol (Albut/Ipratrop 3mg/0.5mg Neb 3 Ml Vial) 3 ml INH Q6R ROLAND Stop: 02/14/20 15:59 Last Admin: 01/15/20 17:32 Dose: Not Given Documented by: [id number] Calcium Acetate (Calcium Acetate 667 Mg Cap/Tab) 1,334 mg PO TIDM ROLAND Stop: 02/14/20 16:59 Last Admin: 01/15/20 17:52 Dose: Not Given Documented by: [id number] Ethyl Chloride (Ethyl Chloride Aer Spr 100 Ml Can) 1 ml EXT ONE ONE Stop: 01/15/20 18:01 Last Admin: 01/15/20 17:52 Dose: 1 ml Documented by: [id number] Hydromorphone HCl (Hydromorphone Inj 0.5 Mg/0.5 Ml Syr) 0.25 mg IV Q6H PRN PRN Reason: Pain Stop: 01/29/20 15:41 Last Admin: 01/15/20 17:53 Dose: 0.25 mg Documented by: [id number] Midodrine (Midodrine Hcl 10 Mg Tab) 10 mg PO TID@0700,1300,1700 ROLAND Stop: 02/14/20 16:59 Last Admin: 01/15/20 17:52 Dose: Not Given Documented by: [id number] Discontinued Medications Albuterol (Albuterol 0.5% Neb Soln 2.5 Mg/0.5 Ml Vial) 2.5 mg NEB NOW STA Stop: 01/15/20 12:00 Last Admin: 01/15/20 12:46 Dose: Not Given Documented by: [id number] Albuterol (Albuterol 0.083% Nebu Soln 3 Ml Vial) Confirm Administered Dose 2.5 mg .ROUTE .STK-MED ONE Stop: 01/15/20 12:16 Last Admin: 01/15/20 13:54 Dose: Not Given Documented by: [id number] Dextrose (Dextrose 50% 50 Ml Syringe) 50 ml IV NOW ONE Stop: 01/15/20 11:32 Last Admin: 01/15/20 11:40 Dose: 50 ml Documented by: [id number] Calcium Chloride 1,000 mg/ (Sodium Chloride) 60 mls @ 240 mls/hr IV NOW STA Stop: 01/15/20 11:45 Last Infusion: 01/15/20 11:36 Dose: 0 mls/hr Documented by: [id number] Admin: 01/15/20 11:35 Dose: 240 mls/hr Documented by: [id number] Sodium Chloride (Nss 1000ml) 500 mls @ 999 mls/hr IV .Q31M ONE Stop: 01/15/20 12:29 Last Infusion: 01/15/20 14:54 Dose: 0 mls/hr Documented by: [id number] Infusion: 01/15/20 12:40 Dose: 0 mls/hr Documented by: [id number] Admin: 01/15/20 12:07 Dose: 200 mls/hr Documented by: [id number] Calcium Gluconate 1,000 mg/ (Sodium Chloride) 60 mls @ 240 mls/hr IV NOW STA Stop: 01/15/20 12:54 Last Infusion: 01/15/20 13:11 Dose: 0 mls/hr Documented by: [id number] Admin: 01/15/20 12:56 Dose: 240 mls/hr Documented by: [id number] Insulin Human Regular (Novolin-R Insulin Per Unit Charge) 10 units IV NOW STA Stop: 01/15/20 11:32 Last Admin: 01/15/20 11:35 Dose: 10 units Documented by: [id number] Cosigned by: [id number] Sodium Bicarbonate (Sodium Bicarb 8.4% Inj 50 Meq/50 Ml Syr) 50 meq IV NOW STA Stop: 01/15/20 11:33 Last Admin: 01/15/20 11:47 Dose: 50 meq Documented by: [id number] Discharge Plan Visit Data Chief Complaint: Weakness Stated Complaint: DIALYSIS PT, UNCONSCIOUS IN CAR, CHEST PAIN ED Provider: Mike Armas Discharge Problem: Hyperkalemia, Chronic systolic heart failure, ESRD on hemodialysis, Medical non-compliance, Syncope Patient Disposition: Admitted As Inpatient Condition: Serious Discharge Instructions Interventions: ED Discharge Assessment Last Done: 01/15/20 15:11 Discharge Problem: Syncope Qualifiers: Syncope type: unspecified Qualified Code(s): R55 - Syncope and collapse
[2020-01-15] MEDS ORDERED: ALBUTEROL 0.083% NEBU SOLN 3 ML VIAL ONE (12:15)
[2020-01-15 12:27] LABS: Alanine Aminotransferase 8 U/L (12-78); Albumin Globulin Ratio 0.9 (0.9-2); Albumin Level 3.9 gm/dl (3.4-5.0); Alkaline Phosphatase 181 U/L (45-117); Aspartate Aminotransferase 10 U/L (15-37); BUN Creatinine Ratio 7.4 (10-20); Bilirubin,Total 0.4 mg/dl (0.2-1); Blood Urea Nitrogen 65 mg/dl (7-18); Calcium 9.6 mg/dl (8.5-10.1); Carbon Dioxide 27 mmol/L (21-32); Chloride 95 mmol/L (98-107); Est GFR (African American) 5.3; Est GFR (Non-African American) 4.6; Globulin 4.2 gm/dl (2.5-4.0); Glucose 136 mg/dl (70-99); Magnesium 3.1 mg/dl (1.8-2.4); Potassium 9.5 mmol/L (3.5-5.1); Sodium 130 mmol/L (136-145); Total Protein 8.1 gm/dl (6.4-8.2); Troponin I < 0.015 ng/ml (0-0.045)
[2020-01-15] MEDS ORDERED: CALCIUM GLUCONATE 10% 1,000 MG in SODIUM CHLORIDE 0.9% 50 ML IV STA (12:40)
--- NOTE | 2020-01-15 12:43 | Nephrology Consultation ---
Date of Consultation January 15, 2020 Assessment & Plan (1) ESRD (end stage renal disease) on dialysis: End-stage renal disease, on hemodialysis, admitted with missed dialysis and found to have significant hyperkalemia with EKG changes. Patient has known history of noncompliance with her dialysis treatment, medication as well as diet. -- Will schedule for emergency dialysis with 2 K bath, order was placed in discussed with dialysis nurse -- keep on low-potassium diet, dose medications for GFR less than 10 -- will also plan on doing dialysis tomorrow or as regular schedule Will follow Thank you for allowing me to participate in your patient's care. It was a pleasure to see Keira (2) Hyperkalemia: (3) Hyponatremia: (4) Hypotension: History of Present Illness Reason for Consultation: hyperkalemia, end-stage renal disease, need for emergency dialysis History of Present Illness Keira Allen is a 54 Y O F with past medical with past medical history significant for end-stage renal disease on hemodialysis Sunday, Sunday, Sunday, presented to the ER with chest pain and weakness. On admission she was found to have hyperkalemia with potassium 9.5 with significant EKG changes. Nephrology consult was requested to evaluate for emergency dialysis. Electronic medical records are reviewed in detail during patient's visit. Betsy Was brought to ER by son and her son after she was having chest pain and weakness at home. She is on dialysis Sunday, Sunday, Sunday but she missed dialysis yesterday as she was having some pain in her abdomen with history of ventral hernia. On admission her potassium was 9.5 with significant EKG changes and she was given calcium chloride, insulin, D50 and albuterol. Betsy has ESRD secondary to polycystic kidney disease. She had AV fistula placed in 2008 and started on maintenance hemodialysis in 2009. however she has always been noncompliant with her care and she disappeared from the dialysis unit for months and then return to [facility] to see Dr. Hugo in 2010. high AV fistula was found to be clotted and she was symptomatic a uremic, a right IJ tunneled dialysis catheter was placed and she was restarted on dialysis. Subsequently she had another AV fistula placed. she continues to be poorly compliant with her, Dialysis treatment, medications and diet and she frequently misses dialysis for variety of reasons. she has history of multiple hospitalization because of poor compliance with medical care with volume overload, respiratory failure and significant electrolyte abnormality. She has history of obstructive sleep apnea but does not use CPAP. In December 2012 she had mitral valve and tricuspid valve repair at [facility]. Postoperative course was complicated by complete heart and had permanent pacemaker placed. Also has history of hypo thyroidism, she was admitted to the hospital once with respiratory failure and myxedema, when she was found to have TSH above 500, now on levothyroxine. Allergies Allergy/AdvReac Type Severity Reaction Status Date / Time No Known Allergies Allergy Verified 01/15/20 14:51 Home Medications Home Medications Medication Instructions Recorded Confirmed Type cholecalciferol (vitamin D3) 1,000 unit PO DAILY 05/05/18 01/15/20 History calcium acetate(phosphat bind) 1,334 mg PO TIDM 01/29/19 01/15/20 History cefuroxime axetil 500 mg tablet 500 mg PO BID #20 tab 04/18/19 01/15/20 Rx levothyroxine 175 mcg tablet 175 mcg PO DAILY #90 tab 05/21/19 01/15/20 Rx midodrine 10 mg tablet 10 mg PO TID #90 tab 11/24/19 01/15/20 Rx albuterol sulfate 90 mcg/actuation 2 inh INHALATION Q6H PRN #18 g 11/28/19 01/15/20 Rx aerosol inhaler gabapentin 300 mg capsule 300 mg PO HS #14 cap 01/05/20 01/15/20 Rx lorazepam 1 mg tablet 1 mg PO Q12H PRN #28 tab 01/05/20 01/15/20 Rx oxycodone-acetaminophen 10 mg-325 1 tab PO Q8H PRN #42 tab 01/05/20 01/15/20 Rx mg tablet lidocaine-prilocaine 1 applic TOPICAL DIRECTED PRN 01/15/20 01/15/20 History Patient History Medical History (Updated 01/15/20 @ 21:01 by Bunny Ku) Anemia Chronic anxiety (Unknown) Chronic right-sided congestive heart failure COPD (chronic obstructive pulmonary disease) Depression Dyslipidemia ESRD (end stage renal disease) on dialysis History of drug abuse History of endocarditis History of valvular heart disease "s/p mitral and tricuspid valve repair 12/2012" Hyperkalemia Neuropathy Polycystic kidney disease, adult type (Unknown) Sleep apnea (Unknown) Surgical History (Updated 01/15/20 @ 13:41 by Bunny Ku) S/P hernia repair ventral -- 8 separate surgeries for such; still has hernia S/P mitral valve repair "12/2012" S/P placement of cardiac pacemaker "12/2012" S/P right and left heart catheterization "2012- minor luminal regularities of the coronary arteries, severe pulmonary hypertension, with markedly elevated pulmonary capillary wedge pressure" S/P tonsillectomy S/P tricuspid valve repair "12/2012" Family History (Updated 01/15/20 @ 13:42 by Bunny Ku) Father Kidney disease had ESRD and was on dialysis Other No pertinent family history in first degree relatives Social History (Updated 01/15/20 @ 13:42 by Bunny Ku) Smoking Status: Current every day smoker Tobacco Type: Cigarettes packs per day: 0.5; Second Hand Exposure: No; Do You Dip or Chew Tobacco: No; Hx Alcohol Use: No Hx Substance Use: No Preferred Language: [place] Islander Communication Ability: Effective Chief Deputy Court Clerk Required: No Beliefs That Will Affect Care: None marital status: / Current Living Situation: Family Current Living Situation Comment: lives with son current occupational status: disabled How many Children do You have: 5 Other Information That Helps Us Care for You: No Feels Safe at Home: Yes Safety Concerns: Feels Safe At This Time Assistive Devices: Glasses, Oxygen - Continuous and Wheelchair Review of Systems Review of Systems: All systems reviewed & are unremarkable except as noted in HPI & below Physical Exam Constitutional: WD/WN, vitals as above + ill appearing; no acute distress Eyes: PERRL, conjunctivae normal, anicteric sclerae ENMT: external ear and nose normal, oropharynx normal Ears: no hearing impairment Neck: trachea midline Respiratory: normal respiratory effort; no respiratory distress and no cough Auscultation: + crackles Cardiovascular: RRR, no murmur, no edema Gastrointestinal (Abdomen): normal bowel sounds, soft, nontender, no hepatosplenomegaly Percussion/Palpation: abdomen nontender, no guarding and abdomen not rigid Musculoskeletal: Extremities: extremities normal to inspection Gait: normal gait Skin: no rashes, warm and dry Neurologic: moves all extremities and awake Psychiatric: A+Ox3, euthymic affect Results & Data ([facility]) Vital Signs (Past 12 Hours) Vital Signs Temp Pulse Pulse Resp BP Pulse Ox 01/15/20 12:20 101 H 20 96 01/15/20 11:06 36.8 C 102 H 24 106/64 94 PG Care Time/CCT Total # of Minutes Spent Total Time Spent with Patient: Total time spent is greater than 50% in coordination of care (as documented) at patient's floor/unit and/or counseling patient: Coding Level of Care Code 73792 Inpt Consult Level 5 Diagnoses ESRD (end stage renal disease) on dialysis N18.6; Z99.2 Hyperkalemia E87.5 Hyponatremia E87.1 Hypotension I95.9
[2020-01-15 12:45] LABS: Phosphorus 9.5 mg/dl (2.5-4.9)
--- NOTE | 2020-01-15 12:52 | History & Physical Report ---
Date of Service January 15, 2020 Assessment & Plan (1) Hyperkalemia: 2nd to missed HD session yesterday. I cannot rule out dietary indiscretion. Cannot rule out AV fistula dysfunction but less likely. Critical hyperkalemia likely to blame for most of her presenting symptoms, her syncopal spell (wide-complex paced rhythm), etc. s/p bicarbonate, insulin, D50, albuterol, calcium given in ER. Nephrology consulted STAT - to have emergency HD once in the ICU. Fortunately she is maintaining a normal BP despite the wide complex rhythm. Appreciate critical care support. Appreciate nephrology support. Low K diet. (2) ESRD (end stage renal disease) on dialysis: 2nd to polycystic kidney disease. Typical schedule M/W/F at [facility]. [facility] [place] consulted. h/o noncompliance with diet, meds, dialysis treatments, etc. For emergency HD this afternoon for critical hyperkalemia. (3) Syncope: Suspect 2nd to her wide complex rhythm vs metabolic encephalopathy in setting of uremia/hyperkalemia vs infectious etiology vs other. Telemetry. Pacer interrogation done in ER. (4) Acute respiratory failure with hypoxia: Suspect 2nd to acute pulmonary edema from missed HD session yesterday. Cannot rule out infectious pneumonia. Certainly at risk of COVID-19 thus will obtain COVID-19 PCR. Consider repeat cxr tomorrow to reassess infiltrates. If all resolving with HD then pulmonary edema is main culprit. (5) Pulmonary edema: Clinically and radiographically. HD this afternoon and likely HD again tomorrow. Last echo - 2017 - EF 50-55%, mild RV dysfunction, grade 2 diastolic dysfunction. Consider repeat echo but volume overload likely mainly due to missed HD yesterday and dietary factors. (6) Ventral hernia: h/o numerous surgeries for this. c/o significant abdominal pain over her hernia. at minimum will obtain x-rays to r/o developing obstruction but low suspicion for such. lipase and LFTs wnl. (7) Hypothyroidism: TSH wnl. Cont synthroid. (8) Liver cirrhosis: 2nd to "cardiac" cirrhosis? other etiology? check ammonia level given her mildly altered mentation. (9) GERD (gastroesophageal reflux disease): PPI daily (10) Chest pain: patient c/o this during my assessment. prior left heart cath, however, without significant CAD. suspect this is due to pulmonary vascular congestion vs GI origin. follow. (11) Neuropathy: continue gabapentin (12) COPD (chronic obstructive pulmonary disease): wheezing on exam may be from pulmonary edema vs COPD exacerbation serial HD sessions for volume removal duonebs q6h consider steroids only if pulmonary status does not improve with dialysis sessions (13) Chronic right-sided congestive heart failure: echo 2018 with such. consider repeat echo to reassess right heart function, pulmonary pressures, etc (14) DVT prophylaxis: heparin 5000 BID total critical care time 60 minutes including coordinating care with ICU team, nephrology, etc History of Present Illness Chief Complaint: fatigue, vomiting, abdominal pain, shortness of breath, cough, tremors Primary Care Provider: Ashlyn Dominguez, 54yo AA female, ESRD on HD M// at [facility], presents with multiple complaints including abdominal pain starting yesterday, vomiting which began this am, diarrhea also starting this am, chills, poor appetite, shakiness/tremors, chest pain (transient, this am), cough/congestion, dyspnea, neuropathic pain in feet which "bothered her all night," insomnia x 3-4 days, and muscle aches beginning this am. Son provided much of the history. Apparently the patient missed her usual HD session yesterday because of not feeling well. Son was attempting to take her to HD this am but she had a 2-minute long syncopal episode in the car. Rather than going to HD she was brought to [facility]. In the ER K was noted to be 9.5. Insulin, D50, albuterol, bicarbonate, and calcium were given for such, and [facility] [place] was emergently consulted for dialysis treatment. Patient denies fevers. No obvious COVID-19 contacts or sick contacts. Son with whom she lives has been feeling well. Patient admits to poor dietary compliance. Allergies Allergy/AdvReac Type Severity Reaction Status Date / Time No Known Allergies Allergy Verified 01/15/20 14:51 Home Medications Home Medications Medication Instructions Recorded Confirmed Type cholecalciferol (vitamin D3) 1,000 unit PO DAILY 05/05/18 01/15/20 History calcium acetate(phosphat bind) 1,334 mg PO TIDM 01/29/19 01/15/20 History cefuroxime axetil 500 mg tablet 500 mg PO BID #20 tab 01/10/20 10/08/20 Rx levothyroxine 175 mcg tablet 175 mcg PO DAILY #90 tab 05/21/19 01/15/20 Rx midodrine 10 mg tablet 10 mg PO TID #90 tab 11/24/19 01/15/20 Rx albuterol sulfate 90 mcg/actuation 2 inh INHALATION Q6H PRN #18 g 11/28/19 01/15/20 Rx aerosol inhaler gabapentin 300 mg capsule 300 mg PO HS #14 cap 01/05/20 01/15/20 Rx lorazepam 1 mg tablet 1 mg PO Q12H PRN #28 tab 01/05/20 01/15/20 Rx oxycodone-acetaminophen 10 mg-325 1 tab PO Q8H PRN #42 tab 01/05/20 01/15/20 Rx mg tablet lidocaine-prilocaine 1 applic TOPICAL DIRECTED PRN 01/15/20 01/15/20 History Past Med/Surg History Medical History (Updated 01/15/20 @ 21:01 by Bunny Ku) Anemia Chronic anxiety (Unknown) Chronic right-sided congestive heart failure COPD (chronic obstructive pulmonary disease) Depression Dyslipidemia ESRD (end stage renal disease) on dialysis History of drug abuse History of endocarditis History of valvular heart disease "s/p mitral and tricuspid valve repair 12/2012" Hyperkalemia Neuropathy Polycystic kidney disease, adult type (Unknown) Sleep apnea (Unknown) Surgical History (Updated 01/15/20 @ 13:41 by Bunny Ku) S/P hernia repair ventral -- 8 separate surgeries for such; still has hernia S/P mitral valve repair "12/2012" S/P placement of cardiac pacemaker "12/2012" S/P right and left heart catheterization "2012- minor luminal regularities of the coronary arteries, severe pulmonary hypertension, with markedly elevated pulmonary capillary wedge pressure" S/P tonsillectomy S/P tricuspid valve repair "12/2012" Family History (Updated 01/15/20 @ 13:42 by Bunny Ku) Father Kidney disease had ESRD and was on dialysis Other No pertinent family history in first degree relatives Social History (Updated 01/15/20 @ 13:42 by Bunny Ku) Smoking Status: Current every day smoker Tobacco Type: Cigarettes packs per day: 0.5; Second Hand Exposure: No; Do You Dip or Chew Tobacco: No; Hx Alcohol Use: No Hx Substance Use: No Preferred Language: Estonian Communication Ability: Effective Hunting And Fishing Guide Required: No Beliefs That Will Affect Care: None marital status: / Current Living Situation: Family Current Living Situation Comment: lives with son current occupational status: disabled How many Children do You have: 5 Other Information That Helps Us Care for You: No Feels Safe at Home: Yes Safety Concerns: Feels Safe At This Time Assistive Devices: Glasses, Oxygen - Continuous and Wheelchair Review of Systems 2 Constitutional: + chills, + body aches, + fatigue, + weakness and + anorexia; no fever Ear, Nose, Mouth, Throat: no nasal congestion, no sore throat and no dysphagia Respiratory: + cough, + dyspnea, + dyspnea on exertion and + wheezing Cardiovascular: + chest pain Gastrointestinal: + abdominal pain, + nausea, + vomiting and + diarrhea/loose stools Genitourinary: rare urine production Musculoskeletal: + myalgia Integumentary: no rash Neurologic: + loss of sensation (neuropathy of feet - severe ) Psychiatric: + depression Endocrine: no diabetes Physical Exam Constitutional: + acute distress (tachypneic), + ill appearing and + altered mental status (mildly confused, falling asleep easily, myoclonic jerks noted ) Eyes: + anicteric sclerae and PERRL ENMT: external ear and nose normal, oropharynx normal Neck: trachea midline, no thyromegaly Respiratory: + labored breathing, + retractions and + tachypneic Auscultation: + crackles (b/l bases ) and + wheezes (b/l - extensive ) Cardiovascular: Rate/Rhythm: regular rhythm and + tachycardic Heart Sounds: normal S1, normal S2 and + murmur (2/6 systolic LSB) Vessels: + JVD (to the jaw ), posterior tibial pulses present and dorsalis pedis pulses present Extremities: + edema (<1+ b/l) and + AV fistula (left arm with +bruit) Gastrointestinal (Abdomen): Inspection/Auscultation: + abdomen distended and normal bowel sounds Percussion/Palpation: + abdomen tender (over hernia, midline, upper abdomen ) and + hernia (1, possibly 2, midline hernias; tender over superior most hernia; reducible); no guarding Musculoskeletal: Extremities: + clubbing Skin: no rashes, warm and dry Neurologic: myoclonic jerks present; strength 5/5 x 4 extremities; no facial droop Psychiatric: Orientation: oriented to person and oriented to place; + not oriented to time Lymphatic: no cervical lymphadenopathy Results & Data Results & Data ([facility]) Vital Signs (Past 12 Hours) Vital Signs Temp Pulse Pulse Resp BP Pulse Ox 01/15/20 12:20 101 H 20 96 01/15/20 11:06 36.8 C 102 H 24 106/64 94 Laboratory Results Laboratory Results - last 24 hr 01/15/20 01/15/20 01/15/20 11:37 11:40 11:40 WBC 9.31 RBC 4.38 Hgb 13.7 POC Hgb Hct 43.4 POC Hct MCV 99.1 MCH 31.3 MCHC 31.6 L RDW Std Deviation 54.8 H RDW Coeff of Ya 15.2 H Plt Count 172 MPV 11.1 H Immature Gran % (Auto) 0.2 Neut % (Auto) 78.2 Lymph % (Auto) 15.7 [place] % (Auto) 5.4 Eos % (Auto) 0.4 Baso % (Auto) 0.1 Neut # (Auto) 7.28 H Lymph # (Auto) 1.46 [place] # (Auto) 0.50 Eos # (Auto) 0.04 Baso # (Auto) 0.01 Immature Gran # (Auto) 0.02 PT 11.0 INR 1.0 POC Sodium Sodium POC Potassium Potassium POC Chloride Chloride Carbon Dioxide POC Total CO2 Anion Gap POC Anion Gap POC BUN BUN Creatinine POC Creatinine Est Cr Clr Drug Dosing Est GFR ( Amer) Est GFR (Non-Af Amer) BUN/Creatinine Ratio Glucose POC Glucose (other) Lactate 2.3 H* Calcium POC Ioniz Calcium [place] Phosphorus Magnesium Total Bilirubin AST ALT Alkaline Phosphatase Ammonia Troponin I Total Protein Albumin Globulin Albumin/Globulin Ratio Lipase TSH Specimen Hemolysis Nasal Screen MRSA (PCR) COVID-19 Eval Order SARS-CoV-2, RNA, NAAT 01/15/20 01/15/20 01/15/20 11:40 11:40 11:50 WBC RBC Hgb POC Hgb 16.3 H Hct POC Hct 48 H MCV MCH MCHC RDW Std Deviation RDW Coeff of Ya Plt Count MPV Immature Gran % (Auto) Neut % (Auto) Lymph % (Auto) [place] % (Auto) Eos % (Auto) Baso % (Auto) Neut # (Auto) Lymph # (Auto) [place] # (Auto) Eos # (Auto) Baso # (Auto) Immature Gran # (Auto) PT INR POC Sodium 129 L Sodium 130 L POC Potassium > 9.0 H* Potassium 9.5 H* POC Chloride 98 L Chloride 95 L Carbon Dioxide 27 POC Total CO2 26 Anion Gap 8.0 POC Anion Gap TNP POC BUN 74 H BUN 65 H Creatinine 8.82 H* POC Creatinine 8.4 H* Est Cr Clr Drug Dosing Not Reportable Est GFR ( Amer) 5.3 Est GFR (Non-Af Amer) 4.6 BUN/Creatinine Ratio 7.4 L Glucose 136 H POC Glucose (other) 141 H Lactate Calcium 9.6 POC Ioniz Calcium [place] 1.01 L Phosphorus 9.5 H Magnesium 3.1 H Total Bilirubin 0.4 AST 10 L ALT 8 L Alkaline Phosphatase 181 H Ammonia Troponin I < 0.015 Total Protein 8.1 Albumin 3.9 Globulin 4.2 H Albumin/Globulin Ratio 0.9 Lipase 111 TSH 1.330 Specimen Hemolysis Nasal Screen MRSA (PCR) COVID-19 Eval Order SARS-CoV-2, RNA, NAAT 01/15/20 01/15/20 01/15/20 14:25 14:30 14:30 WBC RBC Hgb POC Hgb Hct POC Hct MCV MCH MCHC RDW Std Deviation RDW Coeff of Ya Plt Count MPV Immature Gran % (Auto) Neut % (Auto) Lymph % (Auto) [place] % (Auto) Eos % (Auto) Baso % (Auto) Neut # (Auto) Lymph # (Auto) [place] # (Auto) Eos # (Auto) Baso # (Auto) Immature Gran # (Auto) PT INR POC Sodium Sodium POC Potassium Potassium POC Chloride Chloride Carbon Dioxide POC Total CO2 Anion Gap POC Anion Gap POC BUN BUN Creatinine POC Creatinine Est Cr Clr Drug Dosing Est GFR ( Amer) Est GFR (Non-Af Amer) BUN/Creatinine Ratio Glucose POC Glucose (other) Lactate Calcium POC Ioniz Calcium [place] Phosphorus Magnesium Total Bilirubin AST ALT Alkaline Phosphatase Ammonia Cancelled Troponin I Total Protein Albumin Globulin Albumin/Globulin Ratio Lipase TSH Specimen Hemolysis Nasal Screen MRSA (PCR) COVID-19 Eval [facility] SARS-CoV-2, RNA, NAAT NEGATIVE 01/15/20 01/15/20 15:35 16:08 WBC RBC Hgb POC Hgb Hct POC Hct MCV MCH MCHC RDW Std Deviation RDW Coeff of Ya Plt Count MPV Immature Gran % (Auto) Neut % (Auto) Lymph % (Auto) [place] % (Auto) Eos % (Auto) Baso % (Auto) Neut # (Auto) Lymph # (Auto) [place] # (Auto) Eos # (Auto) Baso # (Auto) Immature Gran # (Auto) PT INR POC Sodium Sodium POC Potassium Potassium POC Chloride Chloride Carbon Dioxide POC Total CO2 Anion Gap POC Anion Gap POC BUN BUN Creatinine POC Creatinine Est Cr Clr Drug Dosing Est GFR ( Amer) Est GFR (Non-Af Amer) BUN/Creatinine Ratio Glucose POC Glucose (other) Lactate Calcium POC Ioniz Calcium [place]ivo Phosphorus Magnesium Total Bilirubin AST ALT Alkaline Phosphatase Ammonia 15.0 Troponin I Total Protein Albumin Globulin Albumin/Globulin Ratio Lipase TSH Specimen Hemolysis Nasal Screen MRSA (PCR) Negative COVID-19 Eval Order SARS-CoV-2, RNA, NAAT Diagnostic Findings 1. cxr - IMPRESSION: 1. Bilateral interstitial and groundglass pulmonary opacities. These remain similar to the preceding study. Diagnostic considerations include pulmonary edema, or a bilateral infectious/inflammatory process. 2. EKG - wide complex ventricular-paced rhythm Code Status & VTE Plan Code Status full VTE Prophylaxis Plan VTE Prophylaxis will be ordered: Yes Critical Care Time Critical Care Time: Yes Total Critical Care Time: 60 PG Care Time/CCT Total # of Minutes Spent Total Time Spent with Patient: Total time spent is greater than 50% in coordination of care (as documented) at patient's floor/unit and/or counseling patient: Critical Care Time: Yes Total Critical Care Time: 60 Coding Level of Care Code None Diagnoses Hyperkalemia E87.5 ESRD (end stage renal disease) on dialysis N18.6; Z99.2 Syncope R55 Syncope type: unspecified Acute respiratory failure with hypoxia J96.01 Pulmonary edema J81.1 Ventral hernia K43.9 Hypothyroidism E03.9 Liver cirrhosis K74.60 GERD (gastroesophageal reflux disease) K21.9 Chest pain R07.9 Neuropathy G62.9 COPD (chronic obstructive pulmonary disease) J44.9 Chronic right-sided congestive heart failure I50.812 DVT prophylaxis Z29.9 Additional Codes Critical Care Time - Critical Care Time: Yes ([id number]) Time Spent (min) 60 (1) Syncope Syncope type: unspecified Qualified Code(s): R55 - Syncope and collapse
[2020-01-15] MEDS ORDERED: CALCIUM CHLORIDE 10% 10 ML SYR IV ONE (14:38)
[2020-01-15] MEDS ORDERED: SODIUM CHLORIDE 0.9% 10ML FLUSH IV ONE (14:38)
[2020-01-15] MEDS ORDERED: ICU PROTOCOL FOR HYPERGLYCEMIA PRN (15:42)
[2020-01-15] MEDS ORDERED: HYDROmorphone INJ 0.5 MG/0.5 ML SYR IV PRN (15:42)
[2020-01-15] MEDS ORDERED: CALCIUM ACETATE 667 MG CAP/TAB PO PRN (15:42)
--- NOTE | 2020-01-15 15:47 | Critical Care Consultation ---
Date of Consultation January 15, 2020 Assessment & Plan (1) Pulmonary edema: Impression: 54-year-old female with history of end-stage renal disease on dialysis brought to the emergency room with dietary indiscretion and missing dialysis yesterday. She also reports loose stools, intermittent abdominal pain, cough and chest congestion. She was found to be profoundly hyperkalemic in the emergency room with a potassium of 10. She received insulin D50 albuterol bicarbonate and calcium as well as Kayexalate. Nephrology was consulted and has arranged for emergent dialysis to be performed in the ICU. Patient did have a COVID test in the emergency room which was negative. Recommendations: 1. End-stage renal disease on dialysis with acute on chronic hyperkalemia: Patient is going to undergo urgent dialysis. This is been coordinated with nephrology and the dialysis nurses are aware of the patient. Anticipate that dialysis will rapidly improve potassium as well as address pulmonary edema. 2. Acute on chronic hypoxemic respiratory failure: X-ray appears consistent with fluid overload. Dialysis will be successful in fluid offloading which should improve oxygen requirement and chest x-ray. 3. Abdominal pain: Unclear etiology at this point time. Lipase is normal and the patient does not have an elevated white blood cell count. Her exam is somewhat reassuring currently. We will continue to follow with serial exams. I do not see an urgent indication for imaging at this point time and regardless no intervention could be undertaken until we stabilize her potassium levels. 4. Lactic acidosis: Unclear if this is related to increased work of breathing. She apparently has a history of cirrhosis that is not well delineated in the chart. There is a history of substance abuse and cardiac issues which certainly could have contributed. This may impair clearance of lactic acid. We will continue to monitor vital signs at this point time. 5. Chronic pain issues and substance abuse: The patient is apparently on oxycodone as well as lorazepam in the home setting. Unknown when she last took this medication. Will need to observe for signs of potential withdrawal. 6. Tobacco abuse/COPD: No signs of exacerbation currently. Continue inhalers. 7. Continue her home Midodrine and Neurontin 8. Continue home dose Synthroid. Hopefully the patient status will stabilize when she receives dialysis and she will be eligible to transfer out of the intensive care unit or potentially be dismissed from the hospital. (2) Acute respiratory failure with hypoxia: (3) ESRD (end stage renal disease) on dialysis: (4) Hyperkalemia: History of Present Illness History of Present Illness Asked by hospitalist to assist in management of this patient with hyperkalemia. History is obtained from review the electronic medical record. The patient is a 54-year-old female with a history of end-stage renal disease on dialysis as well as pacemaker. She is dialyzed in [place] every Sunday. She was apparently to undergo dialysis yesterday but missed the session for reasons that are not entirely clear. She has not been entirely compliant with her dialysis. She presented to the emergency room today with complaints of abdominal pain and had a syncopal episode prior to presentation. In the emergency room she was found to be markedly hyperkalemic and received appropriate therapy. Nephrology was consulted for urgent dialysis and the patient is being admitted to the ICU to facilitate dialysis. She is been hemodynamically stable with no additional episodes of syncope. Her white count was normal. She did have a mildly elevated lactate. Troponins were negative. Liver function tests were unremarkable. Allergies Allergy/AdvReac Type Severity Reaction Status Date / Time No Known Allergies Allergy Verified 01/15/20 14:51 Home Medications Home Medications Medication Instructions Recorded Confirmed Type cholecalciferol (vitamin D3) 1,000 unit PO DAILY 05/05/18 01/15/20 History calcium acetate(phosphat bind) 1,334 mg PO TIDM 01/29/19 01/15/20 History cefuroxime axetil 500 mg tablet 500 mg PO BID #20 tab 04/18/19 01/15/20 Rx levothyroxine 175 mcg tablet 175 mcg PO DAILY #90 tab 05/21/19 01/15/20 Rx midodrine 10 mg tablet 10 mg PO TID #90 tab 11/24/19 01/15/20 Rx albuterol sulfate 90 mcg/actuation 2 inh INHALATION Q6H PRN #18 g 11/28/19 01/15/20 Rx aerosol inhaler gabapentin 300 mg capsule 300 mg PO HS #14 cap 01/05/20 01/15/20 Rx lorazepam 1 mg tablet 1 mg PO Q12H PRN #28 tab 01/05/20 01/15/20 Rx oxycodone-acetaminophen 10 mg-325 1 tab PO Q8H PRN #42 tab 01/05/20 01/15/20 Rx mg tablet lidocaine-prilocaine 1 applic TOPICAL DIRECTED PRN 01/15/20 01/15/20 History Patient History Medical History (Updated 01/15/20 @ 13:44 by Bunny Ku) Anemia Chronic anxiety (Unknown) Chronic systolic heart failure COPD (chronic obstructive pulmonary disease) Depression Dyslipidemia ESRD (end stage renal disease) on dialysis H/O echocardiogram "11/2013: Moderate systolic dysfunction with 40% ejection fraction, status post mitral and tricuspid repair, mild tricuspid regurgitation." History of drug abuse History of endocarditis History of valvular heart disease "s/p mitral and tricuspid valve repair 12/2012" Hyperkalemia Neuropathy Polycystic kidney disease, adult type (Unknown) Sleep apnea (Unknown) Surgical History (Updated 01/15/20 @ 13:41 by Bunny Ku) S/P hernia repair ventral -- 8 separate surgeries for such; still has hernia S/P mitral valve repair "12/2012" S/P placement of cardiac pacemaker "12/2012" S/P right and left heart catheterization "2012- minor luminal regularities of the coronary arteries, severe pulmonary hypertension, with markedly elevated pulmonary capillary wedge pressure" S/P tonsillectomy S/P tricuspid valve repair "12/2012" Family History (Updated 01/15/20 @ 13:42 by Bunny Ku) Father Kidney disease had ESRD and was on dialysis Other No pertinent family history in first degree relatives Social History (Updated 01/15/20 @ 13:42 by Bunny Ku) Smoking Status: Current every day smoker Tobacco Type: Cigarettes packs per day: 0.5; Second Hand Exposure: No; Hx Alcohol Use: No Hx Substance Use: No Preferred Language: Surinamese Communication Ability: Effective Food Service Clerk Required: No Beliefs That Will Affect Care: None marital status: / Current Living Situation: Family Current Living Situation Comment: lives with son current occupational status: disabled How many Children do You have: 5 Feels Safe at Home: Yes Assistive Devices: None Review of Systems Review of Systems: Please refer to admission H&P. No changes Physical Exam Constitutional: + ill appearing and + obese; + not well nourished and + uncomfortable Neck: trachea midline, no thyromegaly Respiratory: + labored breathing Auscultation: + crackles; no wheezes Cardiovascular: Heart Sounds: normal S1 and normal S2 Gastrointestinal (Abdomen): Inspection/Auscultation: abdomen normal to inspection Percussion/Palpation: abdomen soft; no guarding and abdomen not rigid Midline hernia noted easily reducible Musculoskeletal: Extremities: extremities normal to inspection Skin: no rashes, warm and dry Neurologic: Nonfocal exam Lymphatic: no cervical lymphadenopathy Results & Data Results & Data ([facility]) Vital Signs (Past 12 Hours) Vital Signs Temp Pulse Pulse Resp BP BP Pulse Ox 01/15/20 14:45 0 L 18 128/104 H 95 01/15/20 14:30 0 L 17 120/99 97 01/15/20 14:16 97 H 138/80 95 01/15/20 14:00 96 H 120/75 96 01/15/20 13:45 93 H 111/74 96 01/15/20 13:30 93 H 135/83 96 01/15/20 13:15 93 H 112/72 01/15/20 13:00 101 H 12 121/78 96 01/15/20 12:56 101 H 17 110/78 96 01/15/20 12:55 102 H 110/78 96 01/15/20 12:45 103 H 24 122/79 97 01/15/20 12:30 103 H 27 H 109/70 97 01/15/20 12:20 101 H 20 96 01/15/20 12:15 103 H 22 108/67 98 01/15/20 12:00 102 H 25 H 107/66 97 01/15/20 11:59 101 H 21 99/59 L 96 01/15/20 11:31 94 01/15/20 11:26 105 H 25 H 130/81 93 01/15/20 11:06 36.8 C 102 H 24 106/64 94 Laboratory Results 01/15/20 11:40 01/15/20 11:40 Lactate 2.3 Phosphorus 9.5 Magnesium 3.1 Calcium 9.6 Liver function tests normal. Alk phos elevated at 181 Ammonia pending Troponin negative Lipase 111 Diagnostic Findings Chest x-ray from today was independently reviewed. Diffuse infiltrates consistent with pulmonary edema are noted. Pacemaker is present within the ri ght hemithorax. Lung volumes are low. Multiple vascular calcifications including calcifications of her prior fistula are noted. Coding Level of Care Code 67494 Inpt Consult Level 4 Diagnoses Pulmonary edema J81.1 Acute respiratory failure with hypoxia J96.01 ESRD (end stage renal disease) on dialysis N18.6; Z99.2 Hyperkalemia E87.5
--- NOTE | 2020-01-15 16:33 | XRay Report ---
XR abdomen min 2V CLINICAL HISTORY: hernia, vomiting; eval SBO COMPARISON STUDY: CT of the abdomen and pelvis May 05, 2018. FINDINGS: Evaluation is suboptimal given difficulty positioning. Pacer leads are partially imaged. Knowles rgical clips from hernia repair are noted. There are cholecystectomy clips. Patient is rotated. No fr ee air is evident. There is no evidence for a bowel obstruction. Calcifications within the kidneys ar e noted. Elevation of the right hemidiaphragm is unchanged. IMPRESSION: No free air or evidence of bowel obstruction. ACT 112: Negative or not required by law. Electronically signed by: Yaw Thacker M.D. 01/15/2020 4:31 PM
[2020-01-15 17:23] LABS: iSTAT Chloride 98 mmol/L (101-112); iSTAT Glucose 141 mg/dl (70-99); iSTAT Potassium > 9.0 mmol/L (3.3-5.0); iSTAT Sodium 129 mmol/L (135-144)
[2020-01-15 17:24] LABS: iSTAT Blood Urea Nitrogen 74 mg/dl (7-18); iSTAT Carbon Dioxide 26 mmol/L (24-31); iSTAT Creatinine 8.4 mg/dl (0.6-1.3); iSTAT Hematocrit 48 % (37-47); iSTAT Hemoglobin 16.3 g/dl (12.0-16.0); iSTAT Ionized Calcium 1.01 mmol/l (1.12-1.32)
[2020-01-15] MEDS: ALBUT/IPRATROP 3MG/0.5MG NEB 3 ML VIAL INH SCH ×2 (17:32→19:21)
[2020-01-15] MEDS: MIDODRINE HCL 10 MG TAB PO SCH (17:52)
[2020-01-15] MEDS: CALCIUM ACETATE 667 MG CAP/TAB PO SCH (17:52)
--- NOTE | 2020-01-15 17:55 | Electrocardiogram Report ---
Test Reason : Blood Pressure : / mmHG Vent. Rate : 189 BPM Atrial Rate : 535 BPM P-R Int : 148 ms QRS Dur : 022 ms QT Int : 236 ms P-R-T Axes : 000 120 -25 degrees QTc Int : 418 ms Age and gender specific ECG analysis V-paced rhythm with extremely wide QRS Consider hyperkalemia Abnormal ECG When compared with ECG of 15-JAN-2020 11:27, (unconfirmed) Questionable change in QRS duration Criteria for Lateral infarct are no longer Present Criteria for Inferior infarct are no longer Present Confirmed by Damir Wisdom ([id number]) on 01/15/2020 5:55:34 PM Referred By: REFERRED SELF Confirmed By:Wilfred Wisdom
--- NOTE | 2020-01-15 17:56 | Electrocardiogram Report ---
Test Reason : Blood Pressure : / mmHG Vent. Rate : 199 BPM Atrial Rate : 199 BPM P-R Int : 000 ms QRS Dur : 130 ms QT Int : 236 ms P-R-T Axes : 000 075 032 degrees QTc Int : 429 ms Age and gender specific ECG analysis V-paced rhythm with wide QRS Consider electrolyte abnormality (hyperkalemia) Abnormal ECG When compared with ECG of 15-JAN-2020 11:27, (unconfirmed) Electronic ventricular pacemaker has replaced Electronic atrial pacemaker Confirmed by Damir Wisdom ([id number]) on 01/15/2020 5:56:09 PM Referred By: REFERRED SELF Confirmed By:Wilfred Wisdom
--- NOTE | 2020-01-15 17:57 | Electrocardiogram Report ---
Test Reason : Blood Pressure : / mmHG Vent. Rate : 155 BPM Atrial Rate : 117 BPM P-R Int : 000 ms QRS Dur : 150 ms QT Int : 310 ms P-R-T Axes : 000 258 -81 degrees QTc Int : 498 ms Poor data quality, interpretation may be adversely affected V-paced rhythm with very wide QRS Abnormal ECG When compared with ECG of 05-FEB-2019 00:09, Electronic atrial pacemaker has replaced Electronic ventricular pacemaker Vent. rate has increased BY 74 BPM Confirmed by Damir Wisdom ([id number]) on 01/15/2020 5:56:45 PM Referred By: REFERRED SELF Confirmed By:Wilfred Wisdom
[2020-01-15] MEDS ORDERED: ETHYL CHLORIDE AER SPR 100 ML CAN EXT ONE (18:00)
[2020-01-15] MEDS: GABAPENTIN 300 MG CAP PO SCH (21:07)
[2020-01-15] MEDS: HEPARIN SOD 5,000 UNIT/0.5 ML VIAL SQ SCH (21:24)
[2020-01-16] MEDS: ALBUT/IPRATROP 3MG/0.5MG NEB 3 ML VIAL INH SCH ×4 (00:21→19:33)
[2020-01-16 00:23] LABS: BUN Creatinine Ratio 5.5 (10-20); Calcium 9.5 mg/dl (8.5-10.1); Creatinine Clr Calc Pharmacy 14.6 ml/min; Est GFR (African American) 11.3; Est GFR (Non-African American) 9.7; Magnesium 2.5 mg/dl (1.8-2.4); Phosphorus 6.4 mg/dl (2.5-4.9); Potassium 6.1 mmol/L (3.5-5.1)
[2020-01-16 00:53] LABS: Troponin I 0.021 ng/ml (0-0.045)
[2020-01-16 04:45] LABS: Basophils # (auto) 0.01 K/uL (0-0.2); Basophils % (auto) 0.2 %; Eosinophils # (auto) 0.05 K/uL (0-0.5); Eosinophils % (auto) 0.9 %; Hematocrit (blood only) 41.5 % (37-47); Hemoglobin 12.9 g/dL (12.0-16.0); Immature Granulocytes # (auto) 0.01 K/uL (0.00-0.02); Immature Granulocytes % (auto) 0.2 %; Lymphocytes # (auto) 1.35 K/uL (1.2-3.4); Lymphocytes % (auto) 25.3 %; Mean Corpuscular Hemoglobin 31.2 pg (25-34); Mean Corpuscular Hgb Conc 31.1 g/dL (32-36); Mean Corpuscular Volume 100.2 fL (80-100); Mean Platelet Volume 11.4 fL (7.4-10.4); Monocytes # (auto) 0.29 K/uL (0.11-0.59); Monocytes % (auto) 5.4 %; Neutrophils # (auto) 3.63 K/uL (1.4-6.5); Platelet Count 130 K/uL (130-400); RDW Coefficient of Variation 15.2 % (11.5-14.5); RDW Standard Deviation 55.6 fL (36.4-46.3); Red Blood Count 4.14 M/uL (4.2-5.4); White Blood Count 5.34 K/uL (4.8-10.8)
[2020-01-16] MEDS: GABAPENTIN 300 MG CAP PO SCH ×2 (05:07→21:13)
[2020-01-16] MEDS: LEVOTHYROXINE SODIUM 175 MCG TABLET PO SCH (05:07)
[2020-01-16] MEDS: oxyCODONE/ACETAMINOPHEN 10-325 TAB PO PRN ×2 (05:16→12:29)
[2020-01-16 06:14] LABS: BUN Creatinine Ratio 5.4 (10-20); Creatinine Clr Calc Pharmacy 13.5 ml/min; Est GFR (African American) 10.2; Est GFR (Non-African American) 8.8; Phosphorus 7.1 mg/dl (2.5-4.9); Potassium 6.4 mmol/L (3.5-5.1)
[2020-01-16] MEDS ORDERED: LIDOCAINE/PRILOCAINE 2.5% EA CRM EXT ONE (08:20)
[2020-01-16] MEDS: HEPARIN SOD 5,000 UNIT/0.5 ML VIAL SQ SCH ×2 (09:03→21:14)
[2020-01-16] MEDS: PANTOprazole 40 MG TAB PO SCH (09:04)
[2020-01-16] MEDS: MIDODRINE HCL 10 MG TAB PO SCH ×3 (09:04→18:00)
[2020-01-16] MEDS: CALCIUM ACETATE 667 MG CAP/TAB PO SCH ×3 (09:05→18:01)
[2020-01-16] MEDS: LORazepam 1 MG TAB PO PRN ×2 (09:06→21:13)
--- NOTE | 2020-01-16 09:39 | Nephrology Progress Note ---
Date of Service January 16, 2020 Assessment & Plan (1) ESRD (end stage renal disease) on dialysis: End-stage renal disease, on hemodialysis, admitted with missed dialysis and found to have significant hyperkalemia with EKG changes. Patient has known history of noncompliance with her dialysis treatment, medication as well as diet. Had emergency dialysis with 2 K bath yesterday, K still high. --will do HD with 2 K bath as her regular schedule --keep on low-potassium diet, dose medications for GFR less than 10 --continue on binder with meal Will follow (2) Hyperkalemia: (3) Hyponatremia: (4) Hypotension: Admission and Anticipated Discharge Date Admission Date: January 15, 2020 Subjective Keira was seen and examined this am. She is feeling well, denies any concerns. No CP, SOB, abdominal pain. K still high at 6.2. BP low. Review of Systems Review of Systems: All systems reviewed & are unremarkable except as noted in HPI & below Physical Exam Constitutional: WD/WN, vitals as above + ill appearing; no acute distress Respiratory: normal respiratory effort; no respiratory distress and no cough Auscultation: + crackles Cardiovascular: RRR, no murmur, no edema Skin: no rashes, warm and dry Neurologic: moves all extremities and awake Psychiatric: A+Ox3, euthymic affect Results & Data ([facility]) Vital Signs (Past 12 Hours) Vital Signs Temp Pulse Pulse Resp BP Pulse Ox 01/16/20 07:36 90 16 99 01/16/20 06:19 95 H 17 88/56 L 97 01/16/20 05:21 96 H 12 99/65 L 94 01/16/20 04:19 36.9 C 94 H 19 90/53 L 95 01/16/20 03:19 94 H 25 H 81/57 L 97 01/16/20 02:19 96 H 22 86/55 L 93 01/16/20 01:19 93 H 21 110/56 L 96 01/16/20 00:27 99 H 21 96 01/16/20 00:19 36.7 C 94 H 19 102/64 96 01/15/20 23:19 90 21 87/56 L 98 01/15/20 22:19 99 H 21 96/69 L 97 PG Care Time/CCT Total # of Minutes Spent Total Time Spent with Patient: Total time spent is greater than 50% in coordination of care (as documented) at patient's floor/unit and/or counseling patient: Coding Level of Care Code 50441 Subseq Hosp Care Lvl 3 Diagnoses ESRD (end stage renal disease) on dialysis N18.6; Z99.2 Hyperkalemia E87.5 Hyponatremia E87.1 Hypotension I95.9
--- NOTE | 2020-01-16 11:07 | Critical Care Progress Note ---
Date of Service January 16, 2020 Assessment & Plan (1) Pulmonary edema: Impression: 54-year-old female with history of end-stage renal disease on dialysis brought to the emergency room with dietary indiscretion and missing dialysis yesterday. She also reports loose stools, intermittent abdominal pain, cough and chest congestion. She was found to be profoundly hyperkalemic in the emergency room with a potassium of 10. She received insulin D50 albuterol bicarbonate and calcium as well as Kayexalate. Nephrology was consulted and has arranged for emergent dialysis to be performed in the ICU. Patient did have a COVID test in the emergency room which was negative. Recommendations: 1. End-stage renal disease on dialysis with acute on chronic hyperkalemia: Acute hyperkalemia is significantly improved with dialysis yesterday. She is undergoing additional dialysis today. She can transfer out of the ICU after that dialysis is completed. Long-term management per nephrology and primary care 2. Acute on chronic hypoxemic respiratory failure: X-ray appears consistent with fluid overload. Oxygenation improving with dialysis. 3. Abdominal pain: Now resolved 4. Lactic acidosis: Likely due to increased work of breathing. No evidence of sepsis. No indication for serial examination 5. Chronic pain issues and substance abuse: The patient is apparently on oxycodone as well as lorazepam in the home setting. 6. Tobacco abuse/COPD: No signs of exacerbation currently. Continue inhalers. 7. Continue her home Midodrine and Neurontin 8. Continue home dose Synthroid. Patient can transfer out of the ICU under the care of the hospitalist. Will sign off at this point time. Call us if we can be of additional assistance (2) Acute respiratory failure with hypoxia: (3) ESRD (end stage renal disease) on dialysis: (4) Hyperkalemia: Admission and Anticipated Discharge Date Admission Date: January 15, 2020 Subjective Patient seen and examined. She feels much better today. She is undergoing dialysis again. They plan on only removing about 502,000 mL's with this dialysis session. Her abdominal pain is better. She is awake alert and appears comfortable. Review of Systems Review of Systems: All systems reviewed & are unremarkable except as noted in HPI & below Physical Exam Constitutional: WD/WN, vitals as above + ill appearing; no acute distress Respiratory: normal respiratory effort; no respiratory distress and no cough Auscultation: + crackles Cardiovascular: RRR, no murmur, no edema Skin: no rashes, warm and dry Neurologic: moves all extremities and awake Psychiatric: A+Ox3, euthymic affect Results & Data Results & Data ([facility]) Vital Signs (Past 12 Hours) Vital Signs Temp Pulse Pulse Resp BP Pulse Ox 01/16/20 07:36 90 16 99 01/16/20 06:19 95 H 17 88/56 L 97 01/16/20 05:21 96 H 12 99/65 L 94 01/16/20 04:19 36.9 C 94 H 19 90/53 L 95 01/16/20 03:19 94 H 25 H 81/57 L 97 01/16/20 02:19 96 H 22 86/55 L 93 01/16/20 01:19 93 H 21 110/56 L 96 01/16/20 00:27 99 H 21 96 01/16/20 00:19 36.7 C 94 H 19 102/64 96 01/15/20 23:19 90 21 87/56 L 98 Laboratory Results 01/16/20 04:33 01/16/20 05:24 Diagnostic Findings No new imaging Coding Level of Care Code 71296 Subseq Hosp Care Lvl 2 Diagnoses Pulmonary edema J81.1 Acute respiratory failure with hypoxia J96.01 ESRD (end stage renal disease) on dialysis N18.6; Z99.2 Hyperkalemia E87.5
--- NOTE | 2020-01-16 12:47 | Electrocardiogram Report ---
Test Reason : Blood Pressure : / mmHG Vent. Rate : 090 BPM Atrial Rate : 090 BPM P-R Int : 162 ms QRS Dur : 148 ms QT Int : 432 ms P-R-T Axes : 057 056 147 degrees QTc Int : 528 ms Atrial-sensed ventricular-paced rhythm Abnormal ECG Confirmed by Damir Wisdom ([id number]) on 01/16/2020 12:47:20 PM Referred By: REFERRED SELF Confirmed By:Wilfred Wisdom
--- NOTE | 2020-01-16 23:41 | Hospitalist Progress Note ---
Date of Service January 16, 2020 Assessment & Plan (1) Hyperkalemia: 2nd to missed HD session day prior to admssion. Patient having second HD today. Hyperkalemia is improving. I cannot rule out dietary indiscretion. Cannot rule out AV fistula dysfunction but less likely. Fortunately she is maintaining a normal BP despite the wide complex rhythm. (2) ESRD (end stage renal disease) on dialysis: 2nd to polycystic kidney disease. Typical schedule M/W/F at [facility]. [facility] Nephrology consulted. h/o noncompliance with diet, meds, dialysis treatments, etc. For emergency HD this afternoon for critical hyperkalemia. (3) Syncope: Suspect 2nd to her wide complex rhythm vs metabolic encephalopathy in setting of uremia/hyperkalemia vs infectious etiology vs other. Telemetry. Pacer interrogation done in ER. (4) Acute respiratory failure with hypoxia: Suspect 2nd to acute pulmonary edema from missed HD session yesterday. Improving, now on 4 liters nasal cannula (5) Pulmonary edema: Clinically and radiographically. HD this afternoon and likely HD again tomorrow. Last echo - 2018 - EF 50-55%, mild RV dysfunction, grade 2 diastolic dysfunction. Consider repeat echo but volume overload likely mainly due to missed HD yesterday and dietary factors. (6) Ventral hernia: h/o numerous surgeries for this. c/o significant abdominal pain over her hernia. at minimum will obtain x-rays to r/o developing obstruction but low suspicion for such. lipase and LFTs wnl. (7) Hypothyroidism: TSH wnl. Cont synthroid. (8) Liver cirrhosis: 2nd to "cardiac" cirrhosis? other etiology? check ammonia level given her mildly altered mentation. (9) GERD (gastroesophageal reflux disease): PPI daily (10) Chest pain: patient c/o this during my assessment. prior left heart cath, however, without significant CAD. suspect this is due to pulmonary vascular congestion vs GI origin. follow. (11) Neuropathy: continue gabapentin (12) COPD (chronic obstructive pulmonary disease): wheezing on exam may be from pulmonary edema vs COPD exacerbation serial HD sessions for volume removal duonebs q6h (13) Chronic right-sided congestive heart failure: echo 2018 with such. consider repeat echo to reassess right heart function, pulmonary pressures, etc (14) DVT prophylaxis: heparin 5000 BID total critical care time 60 minutes including coordinating care with ICU team, nephrology, etc Admission and Anticipated Discharge Date Admission Date: January 15, 2020 Subjective Patient reports feeling better. She has less pain today. Patient reports no new complaints. Review of Systems Constitutional: + chills, + body aches, + fatigue, + weakness and + anorexia; no fever Respiratory: + cough, + dyspnea, + dyspnea on exertion and + wheezing Cardiovascular: + chest pain Gastrointestinal: + abdominal pain, + nausea, + vomiting and + diarrhea/loose stools Genitourinary: rare urine production Musculoskeletal: + myalgia Neurologic: + loss of sensation (neuropathy of feet - severe ) Psychiatric: + depression Endocrine: no diabetes Physical Exam Physical Exam: Constitutional: no longer confused Eyes: + anicteric sclerae and PERRL ENMT: external ear and nose normal, oropharynx normal Neck: trachea midline, no thyromegaly Respiratory: +clear through auscultation Cardiovascular: Rhythm: regular rhythm Heart Sounds: normal S1, normal S2 and + murmur (2/6 systolic LSB) Vessels: + JVD (to the jaw ), posterior tibial pulses present and dorsalis pedis pulses present Extremities: + edema (<1+ b/l) and + AV fistula (left arm with +bruit) Gastrointestinal (Abdomen): Inspection/Auscultation: + abdomen distended and normal bowel sounds Percussion/Palpation: + abdomen nontender and + hernia (1, possibly 2, midline hernias; tender over superior most hernia; reducible); no guarding Musculoskeletal: Extremities: + clubbing Skin: no rashes, warm and dry Neurologic: myoclonic jerks present; strength 5/5 x 4 extremities; no facial droop Psychiatric: Orientation: oriented to person and oriented to place; + not oriented to time Lymphatic: no cervical lymphadenopathy Results & Data Results & Data ([facility]) Vital Signs (Past 12 Hours) Vital Signs Temp Pulse Pulse Pulse Resp BP BP 01/16/20 23:12 37.0 C 88 16 95/63 L 01/16/20 19:35 79 18 01/16/20 16:06 36.9 C 88 18 105/65 01/16/20 14:45 37.2 C 94 H 95/60 L 01/16/20 14:00 96 H 89/64 L 01/16/20 13:45 92 H 90/58 L 01/16/20 13:30 92 H 106/61 01/16/20 13:18 87 16 01/16/20 13:15 87 104/53 L 01/16/20 13:00 90 91/60 L 01/16/20 12:45 91 H 95/63 L 01/16/20 12:30 90 94/62 L 01/16/20 12:15 99 H 84/56 L 01/16/20 12:00 96 H 89/52 L 01/16/20 11:45 98 H 88/52 L Pulse Ox 01/16/20 23:12 95 01/16/20 19:35 98 01/16/20 16:06 95 01/16/20 14:45 01/16/20 14:00 01/16/20 13:45 01/16/20 13:30 01/16/20 13:18 98 01/16/20 13:15 01/16/20 13:00 01/16/20 12:45 01/16/20 12:30 01/16/20 12:15 01/16/20 12:00 01/16/20 11:45 PG Care Time/CCT Total # of Minutes Spent Total Time Spent with Patient: Total time spent is greater than 50% in coordination of care (as documented) at patient's floor/unit and/or counseling patient: Coding Level of Care Code 98852 Subseq Hosp Care Lvl 3 Diagnoses Hyperkalemia E87.5 ESRD (end stage renal disease) on dialysis N18.6; Z99.2 Syncope R55 Syncope type: unspecified Acute respiratory failure with hypoxia J96.01 Pulmonary edema J81.1 Ventral hernia K43.9 Hypothyroidism E03.9 Liver cirrhosis K74.60 GERD (gastroesophageal reflux disease) K21.9 Chest pain R07.9 Neuropathy G62.9 COPD (chronic obstructive pulmonary disease) J44.9 Chronic right-sided congestive heart failure I50.812 DVT prophylaxis Z29.9 Time Spent (min) 35 (1) Syncope Syncope type: unspecified Qualified Code(s): R55 - Syncope and collapse
[2020-01-17] MEDS: ALBUT/IPRATROP 3MG/0.5MG NEB 3 ML VIAL INH SCH ×3 (01:50→13:31)
[2020-01-17] MEDS: oxyCODONE/ACETAMINOPHEN 10-325 TAB PO PRN ×2 (04:47→11:31)
[2020-01-17] MEDS: LEVOTHYROXINE SODIUM 175 MCG TABLET PO SCH (06:36)
[2020-01-17 08:07] LABS: Basophils # (auto) 0.02 K/uL (0-0.2); Basophils % (auto) 0.4 %; Eosinophils # (auto) 0.05 K/uL (0-0.5); Eosinophils % (auto) 1.1 %; Hemoglobin 11.3 g/dL (12.0-16.0); Lymphocytes # (auto) 1.24 K/uL (1.2-3.4); Lymphocytes % (auto) 27.7 %; Mean Corpuscular Hemoglobin 30.3 pg (25-34); Mean Corpuscular Hgb Conc 30.5 g/dL (32-36); Mean Corpuscular Volume 99.2 fL (80-100); Mean Platelet Volume 11.2 fL (7.4-10.4); Monocytes # (auto) 0.37 K/uL (0.11-0.59); Monocytes % (auto) 8.3 %; Neutrophils # (auto) 2.79 K/uL (1.4-6.5); Neutrophils % (auto) 62.5 %; Platelet Count 140 K/uL (130-400); RDW Coefficient of Variation 15.1 % (11.5-14.5); RDW Standard Deviation 54.9 fL (36.4-46.3); Red Blood Count 3.73 M/uL (4.2-5.4); White Blood Count 4.47 K/uL (4.8-10.8)
[2020-01-17 08:49] LABS: BUN Creatinine Ratio 3.7 (10-20); Calcium 9.2 mg/dl (8.5-10.1); Creatinine Clr Calc Pharmacy 19.9 ml/min; Est GFR (African American) 16.4; Est GFR (Non-African American) 14.1; Phosphorus 5.8 mg/dl (2.5-4.9); Potassium 4.6 mmol/L (3.5-5.1)
[2020-01-17] MEDS: MIDODRINE HCL 10 MG TAB PO SCH ×2 (08:58→12:48)
[2020-01-17] MEDS: CALCIUM ACETATE 667 MG CAP/TAB PO SCH ×2 (08:59→12:48)
[2020-01-17] MEDS: PANTOprazole 40 MG TAB PO SCH (08:59)
[2020-01-17] MEDS: HEPARIN SOD 5,000 UNIT/0.5 ML VIAL SQ SCH (08:59)
[2020-01-17] MEDS: LORazepam 1 MG TAB PO PRN (09:15)
--- NOTE | 2020-01-17 13:21 | Nephrology Progress Note ---
Date of Service January 17, 2020 Assessment & Plan (1) ESRD (end stage renal disease) on dialysis: HD Q MWF at [facility] under the care of Dr. Hugo. Resume outpatient scheduled. Stable for discharge today from nephrology standpoint. No adjustment to treatment Rx required. Follow up Sunday as scheduled. (2) Hyperkalemia: Due to missed HD. Diet reviewed. Labs improved with adequate clearance with HD. (3) Hyponatremia: (4) Hypotension: Related to acute electrolyte abnormalities. Treatment with HD with improved. BP at baseline. No additional changes at this time. Admission and Anticipated Discharge Date Admission Date: January 15, 2020 Subjective No acute events overnight. Keira feels well today. Hopes to be discharged home. Tolerated HD yesterday without complications. Breathing comfortably. Strength improved. Review of Systems Review of Systems: All systems reviewed & are unremarkable except as noted in HPI & below Constitutional: no weight loss, no weight gain and no problem reported Eyes: no problem reported Ear, Nose, Mouth, Throat: no problem reported Respiratory: no problem reported Cardiovascular: no problem reported Gastrointestinal: no problem reported Musculoskeletal: no problem reported Integumentary: no problem reported Neurologic: no problem reported Psychiatric: no problem reported Endocrine: no problem reported Hematologic / Lymphatic: no problem reported Physical Exam Constitutional: well developed; no acute distress Eyes: no scleral abnormality and no corneal abnormality ENMT: Mouth: no oral mucosal abnormality and oral mucous membranes not dry Neck: normal visual inspection and trachea midline Respiratory: normal respiratory effort Auscultation: lungs clear to auscultation bilaterally Cardiovascular: Rate/Rhythm: regular rate Heart Sounds: normal S1 and normal S2 Extremities: + AV fistula; no edema Musculoskeletal: Extremities: no cyanosis and no clubbing Skin: normal turgor; no lesions Neurologic: Motor/Sensory: no tremor and no asterixis Psychiatric: Orientation: alert and oriented x 3 Results & Data ([facility]) Vital Signs (Past 12 Hours) Vital Signs Temp Pulse Resp BP Pulse Ox 01/17/20 08:35 37.0 C 75 18 102/67 97 01/17/20 07:17 79 18 98 Laboratory Results Laboratory Results - last 24 hr 01/17/20 01/17/20 07:19 07:19 WBC 4.47 L RBC 3.73 L Hgb 11.3 L Hct 37.0 MCV 99.2 MCH 30.3 MCHC 30.5 L RDW Std Deviation 54.9 H RDW Coeff of Ya 15.1 H Plt Count 140 MPV 11.2 H Immature Gran % (Auto) 0.0 Neut % (Auto) 62.5 Lymph % (Auto) 27.7 [place] % (Auto) 8.3 Eos % (Auto) 1.1 Baso % (Auto) 0.4 Neut # (Auto) 2.79 Lymph # (Auto) 1.24 [place] # (Auto) 0.37 Eos # (Auto) 0.05 Baso # (Auto) 0.02 Immature Gran # (Auto) 0.00 Sodium 136 Potassium 4.6 D Chloride 99 Carbon Dioxide 32 Anion Gap 6.0 BUN 13 D Creatinine 3.46 H D Est Cr Clr Drug Dosing 19.9 Est GFR ( Amer) 16.4 Est GFR (Non-Af Amer) 14.1 BUN/Creatinine Ratio 3.7 L Glucose 70 Calcium 9.2 Phosphorus 5.8 H PG Care Time/CCT Total # of Minutes Spent Total Time Spent with Patient: Total time spent is greater than 50% in coordination of care (as documented) at patient's floor/unit and/or counseling patient: Coding Level of Care Code 92834 Subseq Hosp Care Lvl 3 Diagnoses ESRD (end stage renal disease) on dialysis N18.6; Z99.2 Hyperkalemia E87.5 Hyponatremia E87.1 Hypotension I95.9
--- NOTE | 2020-01-25 21:18 | Discharge Summary ---
Date of Service January 17, 2020 Admission HPI Per Admitting Provider 54yo AA female, ESRD on HD M/W/F at [facility], presents with multiple complaints including abdominal pain starting yesterday, vomiting which began this am, diarrhea also starting this am, chills, poor appetite, shakiness/tremors, chest pain (transient, this am), cough/congestion, dyspnea, neuropathic pain in feet which "bothered her all night," insomnia x 3-4 days, and muscle aches beginning this am. Son provided much of the history. Apparently the patient missed her usual HD session yesterday because of not feeling well. Son was attempting to take her to HD this am but she had a 2-minute long syncopal episode in the car. Rather than going to HD she was brought to [facility]. In the ER K was noted to be 9.5. Insulin, D50, albuterol, bicarbonate, and calcium were given for such, and [facility] Nephrology was emergently consulted for dialysis treatment. Patient denies fevers. No obvious COVID-19 contacts or sick contacts. Son with whom she lives has been feeling well. Patient admits to poor dietary compliance. Principal Diagnosis fluid overload secondary to missed HD Discharge Exam Constitutional: no longer confused Eyes: + anicteric sclerae and PERRL ENMT: external ear and nose normal, oropharynx normal Neck: trachea midline, no thyromegaly Respiratory: +clear through auscultation Cardiovascular: Rhythm: regular rhythm Heart Sounds: normal S1, normal S2 and + murmur (2/6 systolic LSB) Vessels: + JVD (to the jaw ), posterior tibial pulses present and dorsalis pedis pulses present Extremities: + edema (<1+ b/l) and + AV fistula (left arm with +bruit) Gastrointestinal (Abdomen): Inspection/Auscultation: + abdomen distended and normal bowel sounds Percussion/Palpation: + abdomen nontender and + hernia (1, possibly 2, midline hernias; tender over superior most hernia; reducible); no guarding Musculoskeletal: Extremities: + clubbing Skin: no rashes, warm and dry Neurologic: myoclonic jerks present; strength 5/5 x 4 extremities; no facial droop Psychiatric: Orientation: oriented to person and oriented to place; + not oriented to time Lymphatic: no cervical lymphadenopathy Discharge Data Allergies Allergy/AdvReac Type Severity Reaction Status Date / Time No Known Allergies Allergy Verified 01/15/20 14:51 Consultations 01/15/20 12:40 Consult Nephrology Stat 01/15/20 12:41 ED Decision to Admit Stat 01/15/20 15:42 Consult Physical Therapy Technician Routine Hospital Course (1) Hyperkalemia: 2nd to missed HD session day prior to admssion. Patient improved after 2 straight days of HD Hyperkalemia has resolved I cannot rule out dietary indiscretion. Cannot rule out AV fistula dysfunction but less likely. Patient will not miss further HD (2) ESRD (end stage renal disease) on dialysis: 2nd to polycystic kidney disease. Typical schedule M/W/F at [facility]. [facility] Nephrology consulted. h/o noncompliance with diet, meds, dialysis treatments, etc. (3) Syncope: Suspect 2nd to her wide complex rhythm vs metabolic encephalopathy in setting of uremia/hyperkalemia vs infectious etiology vs other. Telemetry. Pacer interrogation done in ER. (4) Acute respiratory failure with hypoxia: Suspect 2nd to acute pulmonary edema from missed HD session yesterday. Improving, now on 4 liters nasal cannula (5) Pulmonary edema: Clinically and radiographically. HD this afternoon and likely HD again tomorrow. Last echo - 2018 - EF 50-55%, mild RV dysfunction, grade 2 diastolic dysfunction. volume overload likely mainly due to missed HD and dietary factors. (6) Ventral hernia: h/o numerous surgeries for this. c/o significant abdominal pain over her hernia. at minimum will obtain x-rays to r/o developing obstruction but low suspicion for such. lipase and LFTs wnl. (7) Hypothyroidism: TSH wnl. Cont synthroid. (8) Liver cirrhosis: 2nd to "cardiac" cirrhosis? (9) GERD (gastroesophageal reflux disease): PPI daily (10) Chest pain: patient c/o this during my assessment. prior left heart cath, however, without significant CAD. suspect this is due to pulmonary vascular congestion vs GI origin. improved. will defer firther workup to PCP if symptoms return (11) Neuropathy: continue gabapentin (12) COPD (chronic obstructive pulmonary disease): wheezing on exam may be from pulmonary edema vs COPD exacerbation serial HD sessions for volume removal duonebs q6h (13) Chronic right-sided congestive heart failure: echo 2018 with such. consider repeat echo to reassess right heart function, pulmonary pressures, etc (14) DVT prophylaxis: heparin 5000 BID Total Time Total Time Spent Total Time Spent (In Minutes): 32 Total Time Includes: Examination of the Patient, Discharge Planning and Medication Reconciliation Discharge Plan Discharge Items Patient Disposition: Home - Self-Care Reason For Visit: HYPERKALEMIA, ACUTE HYPOXIC RESP FAILURE Discharge Diagnosis: Hyperkalemia, acute hypoxic resp failure Condition on Discharge: Serious Activity: Resume your previous activity Non-emergency contact: Primary Care Provider Call non-emergency contact if: you have any medication questions Follow-up/Referrals: Bunny Hugo MD [Primary Care Provider] - Diet: Dialysis Renal Addtl Attending Provider Instructions: Resume regular dialysis schedule. Pending Studies at Discharge: No Stand-Alone Forms: [place], Smoking Cessation Medications and DC Order Prescriptions: Continued cefuroxime axetil 500 mg tablet 500 mg PO BID Qty: 20 RF: 0 levothyroxine 175 mcg tablet 175 mcg PO DAILY Qty: 90 RF: 3 midodrine 10 mg tablet 10 mg PO TID Qty: 90 RF: 1 albuterol sulfate 90 mcg/actuation HFA aerosol inhaler 2 inh Inhalation Q6H PRN (Reason: Shortness Of Breath) Qty: 18 RF: 3 calcium acetate(phosphat bind) 667 mg capsule 1,334 mg PO TIDM RF: 0 cholecalciferol (vitamin D3) 1,000 unit Capsule 1,000 unit PO DAILY RF: 0 lidocaine-prilocaine 2.5-2.5 % cream 1 applic topical DIRECTED PRN (Reason: 1 HOUR PRIOR TO DIALYSIS) RF: 0 No Action oxycodone-acetaminophen 10-325 mg tablet 1 tab PO Q8H PRN (Reason: pain) Qty: 20 RF: 0 lorazepam 1 mg tablet 1 mg PO Q12H PRN (Reason: Anxiety) Qty: 14 RF: 0 gabapentin 300 mg capsule 300 mg PO HS Qty: 8 RF: 0 Discharge Orders: Discharge Order (Routine); Ordered 01/17/20 Ordered By: Efe Haddad/Other Patient Handouts: Discharge Instructions for ..., Low Potassium Diet Dc Admission Data Admit Date/Time: 01/15/20 13:36 Attending Provider: Efe Pineda Admit Provider: Bunny Ku Primary Care Provider: Bunny Hugo Other Providers: Ann-Marie Suazo ; Bunny Ku ; Fredi Tracy Other Interventions: Discharge Summary Assessment (RN) Last Done: 01/17/20 14:01 Coding Level of Care Code D/C Day Management >30 mins Diagnoses Hyperkalemia E87.5 ESRD (end stage renal disease) on dialysis N18.6; Z99.2 Syncope R55 Syncope type: unspecified Acute respiratory failure with hypoxia J96.01 Pulmonary edema J81.1 Ventral hernia K43.9 Hypothyroidism E03.9 Liver cirrhosis K74.60 GERD (gastroesophageal reflux disease) K21.9 Chest pain R07.9 Neuropathy G62.9 COPD (chronic obstructive pulmonary disease) J44.9 Chronic right-sided congestive heart failure I50.812 DVT prophylaxis Z29.9
== END 2020-01-17 14:39 | disposition home or self-care (01) | DRG 189 ==
LOC: ED 10:58 → 1E 13:36 → SUATTDRO 13:36 → 1E 15:11 → 3N 01-16 13:47

== ENCOUNTER 2023-03-09 09:09 | Inpatient (IN) ==
[2023-03-09] MEDS ORDERED: VANCOMYCIN HCL 1,600 MG in SODIUM CHLORIDE 0.9% 500 ML IV ONE (09:12)
[2023-03-09] MEDS ORDERED: CEFEPIME 2,000 MG/20 ML VIAL IV STA (09:12)
[2023-03-09] MEDS ORDERED: VANCOMYCIN CONSULT ACTIVE PRN (09:12)
[2023-03-09] MEDS ORDERED: SODIUM CHLORIDE 0.9% 1,000 ML IV ONE ×2 (09:12→11:26)
[2023-03-09] MEDS ORDERED: RAPID SEQUENCE INDUCTION BAG ONE (09:12)
[2023-03-09] MEDS ORDERED: PROPOFOL IV EMULSION 10 MG/ML 100 ML VIAL IV ONE (09:24)
[2023-03-09] MEDS ORDERED: STAT IV Infusion **Titration per Protocol STA ×4 (09:25→14:00)
--- NOTE | 2023-03-09 09:30 | Emergency Department Note ---
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 Parainfluenza 1 (PCR) Not Detected (NotDetected) Parainfluenza 2 (PCR) Not Detected (NotDetected) Parainfluenza 3 (PCR) Not Detected (NotDetected) Parainfluenza 4 (PCR) Not Detected (NotDetected) RSV (RT-PCR) Negative (Neg) RSV (PCR) Not Detected (NotDetected) Entero/Rhino (PCR) Not Detected (NotDetected) Blood Type Antibody Screen Crossmatch Administered Medications Propofol (Diprivan) 1,000 mg in 100 mls @ 13.68 mls/hr IV .Q7H19M [facility]; Protocol Stop: 03/12/23 09:29 Last Titration: 03/09/23 12:09 Dose: 30 mcg/kg/min, 13.7 mls/hr Documented By: Admin: 03/09/23 11:32 Dose: 20 mcg/kg/min, 9.1 mls/hr Documented By: GORDON Co-signed By: JAM Norepinephrine Bitartrate (Levophed/D5w) 4 mg in 250 mls @ 68.4 mls/hr IV .Q3H40M [facility]; Protocol Stop: 04/08/23 10:14 Last Titration: 03/09/23 13:59 Dose: 0.24 mcg/kg/min, 68.4 mls/hr Documented By: Titration: 03/09/23 13:45 Dose: 0.26 mcg/kg/min, 74.1 mls/hr Documented By: Titration: 03/09/23 13:30 Dose: 0.28 mcg/kg/min, 79.8 mls/hr Documented By: Titration: 03/09/23 13:15 Dose: 0.3 mcg/kg/min, 85.5 mls/hr Documented By: Admin: 03/09/23 13:09 Dose: 0.32 mcg/kg/min, 91.2 mls/hr Documented By: HLK Co-signed By: MTP Titration: 03/09/23 13:09 Dose: Infused Documented By: HLK Co-signed By: MTP Titration: 03/09/23 12:23 Dose: 0.32 mcg/kg/min, 91.2 mls/hr Documented By: Titration: 03/09/23 12:08 Dose: 0.3 mcg/kg/min, 85.5 mls/hr Documented By: Titration: 03/09/23 11:44 Dose: 0.28 mcg/kg/min, 79.8 mls/hr Documented By: Titration: 03/09/23 11:36 Dose: 0.26 mcg/kg/min, 74.1 mls/hr Documented By: Titration: 03/09/23 11:31 Dose: 0.24 mcg/kg/min, 68.4 mls/hr Documented By: Titration: 03/09/23 10:09 Dose: 0.22 mcg/kg/min, 62.7 mls/hr Documented By: Admin: 03/09/23 09:55 Dose: 0.1 mcg/kg/min, 28.5 mls/hr Documented By: TW Co-signed By: QGV Vasopressin 20 units/ Sodium (Chloride) 101 mls @ 12.12 mls/hr IV .Q8H20M [facility] Stop: 04/08/23 13:14 Last Admin: 03/09/23 13:50 Dose: 0.04 unit/min, 12.1 mls/hr Documented By: SANTIAGO Co-signed By: GELY Miscellaneous Information (Vancomycin Consult Active) 1 each N/A UD PRN PRN Reason: Consult Stop: 04/08/23 09:11 Last Admin: 03/09/23 11:05 Dose: 1 each Documented By: GORDON Propofol (Propofol Bolus From Bag) 20 mg IV Q5M PRN PRN Reason: Sedation Stop: 03/12/23 09:24 Last Admin: 03/09/23 10:35 Dose: 20 mg Documented By: GORDON Co-signed By: ERICKA Discontinued Medications Sodium Chloride (Nss) 1,000 mls @ 999 mls/hr IV .Q1H1M ONE Stop: 03/09/23 10:12 Last Infusion: 03/09/23 11:42 Dose: Infused Documented By: Admin: 03/09/23 09:59 Dose: 999 mls/hr Documented By: GORDON Cefepime HCl (Maxipime) 2,000 mg in 20 mls @ 5 mls/min IV NOW STA; Protocol Stop: 03/09/23 09:15 Last Admin: 03/09/23 10:03 Dose: 5 mls/min Documented By: GORDON Vancomycin HCl 1,500 mg/ (Sodium Chloride) 530 mls @ 200 mls/hr IV NOW ONE Stop: 03/09/23 12:23 Last Infusion: 03/09/23 13:51 Dose: Infused Documented By: Admin: 03/09/23 10:23 Dose: 200 mls/hr Documented By: GORDON Sodium Chloride (Nss) 1,000 mls @ 999 mls/hr IV .Q1H1M ONE Stop: 03/09/23 12:26 Last Infusion: 03/09/23 12:22 Dose: 0 mls/hr Documented By: Admin: 03/09/23 11:46 Dose: 999 mls/hr Documented By: GORDON Pantoprazole Sodium 40 mg/ (Syringe) 10 mls @ 5 mls/min IV NOW STA Stop: 03/09/23 12:29 Last Admin: 03/09/23 13:10 Dose: 5 mls/min Documented By: SANTIAGO Miscellaneous (Rapid Sequence Induction Bag) Confirm Administered Dose 1 each N/A .STK-MED ONE Stop: 03/09/23 09:13 Last Admin: 03/09/23 10:12 Dose: 1 each Documented By: GORDON Miscellaneous (Stat Iv Infusion Titration Per Protocol) 1 each N/A NOW STA Stop: 03/09/23 09:26 Last Admin: 03/09/23 10:12 Dose: 1 each Documented By: GORDON Norepinephrine Bitartrate (Norepinephrine/D5w 4 Mg/250 Ml) Confirm Administered Dose 4 mg IV .STK-MED ONE Stop: 03/09/23 09:50 Last Admin: 03/09/23 10:12 Dose: Not Given Documented By: GORDON Propofol (Propofol Iv Emulsion 10 Mg/Ml 100 Ml Vial) Confirm Administered Dose 1,000 mg IV .STK-MED ONE Stop: 03/09/23 09:25 Last Admin: 03/09/23 10:11 Dose: Not Given Documented By: GORDON Imaging Data Attestation: I personally reviewed and interpreted this imaging study as follows: My Impression: 1 view chest x-ray was obtained in the emergency department. My interpretation is cardiomegaly with pulmonary edema, endotracheal tube is noted above the rigoberto. Final report below. CT the brain was obtained in the emergency department. My interpretation is no intracranial hemorrhage or mass effect, final report below. CT of the abdomen and pelvis was obtained in the emergency department. My interpretation is ventral hernia, no obstruction, final report below. Radiologist's Impression: Chest X-Ray 03/09/23 09:12 SINGLE VIEW CHEST CLINICAL HISTORY: Sepsis. Respiratory failure FINDINGS: An AP, portable, supine chest radiograph is compared to study dated 01/06/2023. Correlation is made with chest CT dated 09/13/2020. The examination is degraded by portable technique and patient rotation. An endotracheal tube has been placed. The tip of the catheter projects approximately 1 cm above the rigoberto. The patient is status post midline sternotomy and cardiac valve surgeries. A 2-lead cardiac pacemaker is unchanged in position. A left internal jugular central venous catheter is in place. The tip of the catheter projects over the right atrium. The heart is enlarged. There is pulmonary vascular congestion. Epicardial leads are noted. There are mild bilateral airspace opacities. Emphysema and chronic interstitial thickening is similar to previous. There is chronic elevation of the right hemidiaphragm with bibasilar scarring/atelectasis. No large pleural effusion or pneumothorax is seen. The skeletal structures are osteopenic. The bony thorax is grossly intact. Heterotopic ossification is again seen projecting over the left humeral shaft. Cholecystectomy clips are seen in the right upper quadrant. IMPRESSION: 1. An endotracheal tube has been placed as above. 2. Cardiomegaly and cardiac pacemaker with pulmonary vascular congestion. 3. Bilateral airspace opacities likely represent mild pulmonary edema. Correlate clinically for evidence of a superimposed infectious/inflammatory pneumonitis. Radiographic follow-up to resolution is recommended. 4. Emphysema. 5. Additional findings as above. ACT 112: Negative or not required by law. Electronically signed by: Natalio Marquez M.D. 03/09/2023 10:12 AM Abdomen/Pelvis CT 03/09/23 09:25 CT SCAN OF THE ABDOMEN AND PELVIS WITHOUT IV CONTRAST CLINICAL HISTORY: Unresponsive. Hypotension. Change in mental status. COMPARISON STUDY: Abdominal CT dated 09/13/2020. TECHNIQUE: CT scan of the abdomen and pelvis is performed from the lung bases to the proximal femora. Images are reviewed in the axial, sagittal, and coronal planes. IV contrast was not administered for this examination. Note that the examination is suboptimal without oral and IV contrast. The examination is degraded by streak artifact from the left arm which could not be elevated above the abdomen. A dose lowering technique was utilized adhering to the principles of ALARA. CT DOSE: 2244.09 mGy.cm FINDINGS: Lung bases: The patient is status post midline sternotomy with evidence of previous cardiac valve surgeries. Pacemaker leads are in place. The heart is enlarged and without pericardial effusion. The coronary arteries are densely calcified. Emphysematous change is noted. There are trace pleural effusions. Dense airspace consolidation is seen at both lung bases, left greater than right. Liver: The unenhanced liver is normal in size and contour. Hepatic examination is diminished attenuation is diffusely diminished indicating steatosis. There are numerous hepatic cysts and parenchymal calcifications there There is mild central intrahepatic biliary ductal dilatation. Gallbladder: Surgically absent and clips in the gallbladder fossa. Spleen: Normal in size and attenuation. 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 Pancreas: The unenhanced pancreas is grossly unremarkable. Adrenal glands: Unremarkable. Kidneys: The unenhanced kidneys are enlarged, show cortical atrophy, and are diffusely infiltrated by numerous simple and complex cysts. There are numerous bilateral renal calcifications. There is no hydronephrosis or ureteral stone. Abdominal vasculature: The abdominal aorta is normal in course and caliber noting moderate to advanced atherosclerotic calcification. Bowel: There is [id number]-[id number] colonic fecal retention. No bowel obstruction is seen. A large ventral hernia contains a segment of the transverse colon. The appendix is well-visualized and normal. Peritoneum: There is no intraperitoneal free air or abdominal ascites. There is evidence of previous ventral hernia repair. A large ventral hernia in the mid abdomen contains a nonobstructed segment of the transverse colon. Lymphadenopathy: None. Pelvic viscera: The the bladder is decompressed from a Pandey catheter and cannot be evaluated. The uterus and adnexa are normal as visualized. Surgical clips are noted in the left groin. Skeletal structures: The skeletal structures are heterogeneously osteopenic. No lytic or blastic lesions are seen. There are chronic thoracic compression deformities. There are chronic/healed left-sided rib fractures. IMPRESSION: 1. There are trace pleural effusions with dense bibasilar airspace consolidation, left greater than right. Correlate clinically for evidence of pneumonia/aspiration pneumonitis. 2. A ventral hernia contains a nonobstructed segment of the transverse colon. This is similar to previous. 3. Again seen is evidence of autosomal dominant polycystic kidney disease, as well as cystic disease of liver. This is similar to previous. 4. Hepatic steatosis. 5. Cardiomegaly. 6. Additional findings as above. ACT 112: Negative or not required by law. Electronically signed by: Natalio Marquez M.D. 03/09/2023 11:[address] 03/09/23 09:25 CT head/brain wo con CLINICAL HISTORY: AMS Technique: Contiguous axial CT images of the head were acquired from the base of the skull to the vertex without intravenous contrast administration. Images were viewed in brain, subdural and bone windows. Automated dose lowering techniques and/or adjustment according to patient size were utilized for this exam. Comparison: Comparison is made to CT head 10/01/2018 Findings: The ventricles, basal cisterns, and cerebral sulci are normal. There is no acute intracranial hemorrhage or evidence of acute territorial infarction. Neither mass effect, shift of the midline structures, nor abnormal extra-axial fluid collections are shown. Imaged portions of the paranasal sinuses and mastoid air cells are clear. The orbits appear normal. There are no acute fractures of the calvaria or scalp swelling. Impression: No acute intracranial hemorrhage, no evidence of acute territorial infarction or other acute intracranial disease process. ACT 112: Negative or not required by law. Electronically signed by: Robinson Aguila M.D. 03/09/2023 11:05 AM Discharge Plan Visit Data Chief Complaint: Unresponsive Stated Complaint: UNRESPONSIVE, HYPOTENSION ED Provider: Baljeet Allen Discharge Problem: Respiratory failure, Sepsis, Acute hypotension, Respiratory acidosis Patient Disposition: Admitted As Inpatient Discharge Instructions Interventions: ED Discharge Assessment Last Done: 03/09/23 12:50 Discharge Problem: Respiratory failure Qualifiers: Chronicity: acute Respiratory failure complication: hypoxia and hypercapnia Q ualified Code(s): J96.01 - Acute respiratory failure with hypoxia; J96.02 - Acute respiratory failure with hypercapnia Sepsis Qualifiers: Sepsis type: sepsis due to unspecified organism Sepsis acute organ dysfunction status: with acute organ dysfunction Severe sepsis acute organ dysfunction type: acute respiratory failure Acute respiratory failure type: with hypercapnia S evere sepsis shock status: unspecified Qualified Code(s): A41.9 - Sepsis, unspecified organism; R65.20 - Severe sepsis without septic shock; J96.02 - Acute respiratory failure with hypercapnia
[2023-03-09] MEDS ORDERED: VANCOMYCIN HCL 1,500 MG in SODIUM CHLORIDE 0.9% 500 ML IV ONE (09:45)
[2023-03-09] MEDS ORDERED: NOREPINEPHRINE/D5W 4 MG/250 ML IV ONE (09:49)
[2023-03-09] MEDS: NOREPINEPHRINE/D5W 4 MG/250 ML PLCT IV SCH ×6 (09:55→19:53)
[2023-03-09 10:11] LABS: Base Excess VBG -4.7 mEq/L; HCO3 VBG 26 mmol/L; Oxygen Saturation VBG < 60.0 %; PCO2 VBG 79 mmHg (38-50); PO2 VBG 33 mmHg; pH VBG 7.13 (7.36-7.41)
[2023-03-09 10:12] LABS: iSTAT Creatinine 2.8 mg/dl (0.6-1.3); iSTAT Hemoglobin 9.5 g/dl (12.0-16.0); iSTAT Ionized Calcium 0.89 mmol/l (1.12-1.32); iSTAT Potassium 3.3 mmol/L (3.3-5.0)
--- NOTE | 2023-03-09 10:14 | XRay Report ---
SINGLE VIEW CHEST CLINICAL HISTORY: Sepsis. Respiratory failure FINDINGS: An AP, portable, supine chest radiograph is compared to study dated 01/06/2023. Correlation is made with chest CT dated 09/13/2020. The examination is degraded by portable technique and patient r otation. An endotracheal tube has been placed. The tip of the catheter projects approximately 1 cm a rosette the rigoberto. The patient is status post midline sternotomy and cardiac valve surgeries. A 2-lead cardiac pacemaker is unchanged in position. A left internal jugular central venous catheter is in ran ce. The tip of the catheter projects over the right atrium. The heart is enlarged. There is pulmonary vascular congestion. Epicardial leads are noted. There are mild bilateral airspace opacities. Emphys meryl and chronic interstitial thickening is similar to previous. There is chronic elevation of the rig ht hemidiaphragm with bibasilar scarring/atelectasis. No large pleural effusion or pneumothorax is se en. The skeletal structures are osteopenic. The bony thorax is grossly intact. Heterotopic ossificati on is again seen projecting over the left humeral shaft. Cholecystectomy clips are seen in the right upper quadrant. IMPRESSION: 1. An endotracheal tube has been placed as above. 2. Cardiomegaly and cardiac pacemaker with pulmonary vascular congestion. 3. Bilateral airspace opacities likely represent mild pulmonary edema. Correlate clinically for evide nce of a superimposed infectious/inflammatory pneumonitis. Radiographic follow-up to resolution is re commended. 4. Emphysema. 5. Additional findings as above. ACT 112: Negative or not required by law. Electronically signed by: Natalio Marquez M.D. 03/09/2023 10:12 AM
[2023-03-09] MEDS ORDERED: KETAMINE HCL INJ 50 MG/ML 10 ML VIAL IV ONE (10:22)
[2023-03-09] MEDS ORDERED: ROCURONIUM BROMIDE 10 MG/ML 5 ML VIAL IV ONE (10:22)
[2023-03-09] MEDS: PROPOFOL BOLUS FROM BAG IV PRN (10:35)
[2023-03-09 10:37] LABS: Hematocrit (blood only) 30.1 % (37.0-47.0); Hemoglobin 8.5 g/dl (12.0-16.0); Mean Corpuscular Hemoglobin 29.4 pg (25.0-34.0); Mean Corpuscular Hgb Conc 28.2 g/dL (32.0-36.0); Mean Corpuscular Volume 104.2 fL (80.0-100.0); Mean Platelet Volume 10.9 fL (9.4-12.4); Nucleated RBC # (auto) 0.04 K/uL (0.00-0.12); Nucleated RBC % (auto) 0.5 %; Platelet Count 178 K/uL (130-400); RDW Coefficient of Variation 18.6 % (11.5-14.5); RDW Standard Deviation 71.6 fL (36.4-46.3); Red Blood Count 2.89 M/uL (4.20-5.40); White Blood Count 8.36 K/ul (4.8-10.8)
[2023-03-09 10:38] LABS: Alanine Aminotransferase 6 U/L (7-52); Albumin Level 2.6 gm/dl (3.4-5.0); Alkaline Phosphatase 202 U/L (34-104); Anion Gap 8 (3-11); Aspartate Aminotransferase 12 U/L (13-39); BUN Creatinine Ratio 3.2 (10-20); Bilirubin Direct 0.1 mg/dl (0-0.2); Bilirubin,Total 0.5 mg/dl (0.2-1.0); Blood Urea Nitrogen 9 mg/dl (6-23); Calcium 6.5 mg/dl (8.6-10.3); Carbon Dioxide 32 mmol/L (21-32); Chloride 100 mmol/L (98-107); Est GFR (Non-African American) 18.1 ml/min; Glucose 85 mg/dl (70-99(Fasting)); Magnesium 1.7 mg/dl (1.7-2.4); Potassium 3.3 mmol/L (3.5-5.1); Sodium 140 mmol/L (136-145); Total Protein 5.4 gm/dl (6.0-8.3)
[2023-03-09 10:39] LABS: Anisocytosis Present; Basophils # (auto) 0.03 K/uL (0.00-0.20); Basophils % (auto) 0.4 %; Echinocytes 1+; Eosinophils # (auto) 0.04 K/uL (0.00-0.50); Eosinophils % (auto) 0.5 %; Immature Granulocytes # (auto) 0.03 K/uL (0.01-0.20); Immature Granulocytes % (auto) 0.4 %; Lymphocytes # (auto) 1.18 K/uL (1.20-3.40); Lymphocytes % (auto) 14.1 %; Macrocytosis Present; Monocytes # (auto) 0.62 K/uL (0.11-0.59); Monocytes % (auto) 7.4 %; Neutrophils # (auto) 6.46 K/uL (1.40-6.50); Neutrophils % (auto) 77.2 %; Ovalocytes 1+; Polychromasia 1+
[2023-03-09 10:59] LABS: INR 1.3 (0.9-1.1); Partial Thromboplastin Ratio 1.8; Prothrombin Time 14.3 Seconds (9.0-12.0)
--- NOTE | 2023-03-09 11:06 | CT Scan Report ---
CT head/brain wo con CLINICAL HISTORY: AMS Technique: Contiguous axial CT images of the head were acquired from the base of the skull to the trevor alireza without intravenous contrast administration. Images were viewed in brain, subdural [facility]. Automated dose lowering techniques and/or adjustment according to patient size were utilized for this exam. Comparison: Comparison is made to CT head 10/01/2018 Findings: The ventricles, basal cisterns, and cerebral sulci are normal. There is no acute intracranial hemorrh age or evidence of acute territorial infarction. Neither mass effect, shift of the midline structures , nor abnormal extra-axial fluid collections are shown. Imaged portions of the paranasal sinuses and mastoid air cells are clear. The orbits appear normal. There are no acute fractures of the calvaria or scalp swelling. Impression: No acute intracranial hemorrhage, no evidence of acute territorial infarction or other acute intracra nial disease process. ACT 112: Negative or not required by law. Electronically signed by: Robinson Aguila M.D. 03/09/2023 11:05 AM
[2023-03-09 11:20] LABS: Influenza A virus by PCR Negative (Neg); Influenza B virus by PCR Negative (Neg); RSV by PCR Negative (Neg); SARS CoV2 RNA(COVID-19) Ceph NEGATIVE (Negative)
[2023-03-09] MEDS ORDERED: SODIUM CHLORIDE 0.9% 250 ML IV PRN (11:27)
[2023-03-09] MEDS: propofoL 1,000 MG/100 ML VIAL IV SCH ×3 (11:32→19:31)
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
--- NOTE | 2023-03-09 11:53 | CT Scan Report ---
CT SCAN OF THE ABDOMEN AND PELVIS WITHOUT IV CONTRAST CLINICAL HISTORY: Unresponsive. Hypotension. Change in mental status. COMPARISON STUDY: Abdominal CT dated 09/13/2020. TECHNIQUE: CT scan of the abdomen and pelvis is performed from the lung bases to the proximal femora. Images are reviewed in the axial, sagittal, and coronal planes. IV contrast was not administered for this examination. Note that the examination is suboptimal without oral and IV contrast. The examinat ion is degraded by streak artifact from the left arm which could not be elevated above the abdomen. A dose lowering technique was utilized adhering to the principles of ALARA. CT DOSE: 2244.09 mGy.cm FINDINGS: Lung bases: The patient is status post midline sternotomy with evidence of previous cardiac valve jerald geries. Pacemaker leads are in place. The heart is enlarged and without pericardial effusion. The cor onary arteries are densely calcified. Emphysematous change is noted. There are trace pleural effusion s. Dense airspace consolidation is seen at both lung bases, left greater than right. Liver: The unenhanced liver is normal in size and contour. Hepatic examination is diminished attenuat ion is diffusely diminished indicating steatosis. There are numerous hepatic cysts and parenchymal ca lcifications there There is mild central intrahepatic biliary ductal dilatation. Gallbladder: Surgically absent and clips in the gallbladder fossa. Spleen: Normal in size and attenuation. There is a 12 mm peripherally calcified splenic artery aneury sm. Pancreas: The unenhanced pancreas is grossly unremarkable. Adrenal glands: Unremarkable. Kidneys: The unenhanced kidneys are enlarged, show cortical atrophy, and are diffusely infiltrated by numerous simple and complex cysts. There are numerous bilateral renal calcifications. There is no hy dronephrosis or ureteral stone. Abdominal vasculature: The abdominal aorta is normal in course and caliber noting moderate to advance d atherosclerotic calcification. Bowel: There is vvly-ah-rxvgtahz colonic fecal retention. No bowel obstruction is seen. A large ventr al hernia contains a segment of the transverse colon. The appendix is well-visualized and normal. Peritoneum: There is no intraperitoneal free air or abdominal ascites. There is evidence of previous ventral hernia repair. A large ventral hernia in the mid abdomen contains a nonobstructed segment of the transverse colon. Lymphadenopathy: None. Pelvic viscera: The the bladder is decompressed from a Pandey catheter and cannot be evaluated. The ut erus and adnexa are normal as visualized. Surgical clips are noted in the left groin. Skeletal structures: The skeletal structures are heterogeneously osteopenic. No lytic or blastic lesi ons are seen. There are chronic thoracic compression deformities. There are chronic/healed left-sided rib fractures. IMPRESSION: 1. There are trace pleural effusions with dense bibasilar airspace consolidation, left greater than r ight. Correlate clinically for evidence of pneumonia/aspiration pneumonitis. 2. A ventral hernia contains a nonobstructed segment of the transverse colon. This is similar to prev ious. 3. Again seen is evidence of autosomal dominant polycystic kidney disease, as well as cystic disease of liver. This is similar to previous. 4. Hepatic steatosis. 5. Cardiomegaly. 6. Additional findings as above. ACT 112: Negative or not required by law. Electronically signed by: Natalio Marquez M.D. 03/09/2023 11:51 AM
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
[2023-03-09] MEDS ORDERED: PANTOprazole 40 MG in SYRINGE 0 ML IV STA (12:28)
[2023-03-09 12:33] LABS: Base Excess ABG -0.7 mEq/L (-9-1.8); HCO3 ABG 27 mmol/L (19-24); Oxygen Saturation ABG 98.9 % (90-95); PCO2 ABG 54 mmHg (35-46); PO2 ABG 121 mmHg (80-95)
[2023-03-09 12:35] LABS: Hematocrit (blood only) 33.1 % (37.0-47.0); Hemoglobin 9.4 g/dl (12.0-16.0); Mean Corpuscular Hemoglobin 30.3 pg (25.0-34.0); Mean Corpuscular Hgb Conc 28.4 g/dL (32.0-36.0); Mean Corpuscular Volume 106.8 fL (80.0-100.0); Mean Platelet Volume 10.7 fL (9.4-12.4); Nucleated RBC # (auto) 0.02 K/uL (0.00-0.12); Nucleated RBC % (auto) 0.2 %; Platelet Count 173 K/uL (130-400); RDW Coefficient of Variation 18.5 % (11.5-14.5); RDW Standard Deviation 72.4 fL (36.4-46.3); Reticulocyte % 4.3 % (0.5-2.0); Reticulocytes # 0.13 10^6/uL (0.02-0.10); White Blood Count 10.76 K/ul (4.8-10.8)
[2023-03-09 13:02] LABS: Cortisol Random 14.71 mcg/dl
[2023-03-09 13:08] LABS: Thyroid Stimulating Hormone 2.589 uIu/ml (0.300-4.500)
[2023-03-09 13:13] LABS: Ferritin 133.9 ng/ml (8-388)
[2023-03-09 13:18] LABS: Adenovirus PCR Not Detected (NotDetected); Bordetella parapertussis PCR Not Detected (NotDetected); Bordetella pertussis PCR Not Detected (NotDetected); Chlamydia pneumoniae PCR Not Detected (NotDetected); Coronavirus 229E PCR Not Detected (NotDetected); Coronavirus CoV-2 (COVID19)PCR Not Detected (NotDetected); Coronavirus HKU1 PCR Not Detected (NotDetected); Coronavirus NL63 PCR Not Detected (NotDetected); Coronavirus OC43PCR Not Detected (NotDetected); Human Metapneumovirus PCR Not Detected (NotDetected); Influenza A PCR Not Detected (NotDetected); Influenza B PCR Not Detected (NotDetected); Mycoplasma pneumoniae PCR Not Detected (NotDetected); Parainfluenza Virus 1 PCR Not Detected (NotDetected); Parainfluenza Virus 2 PCR Not Detected (NotDetected); Parainfluenza Virus 3 PCR Not Detected (NotDetected); Parainfluenza Virus 4 PCR Not Detected (NotDetected); Respiratory Syncytial VirusPCR Not Detected (NotDetected); Rhinovirus/Enterovirus PCR Not Detected (NotDetected)
[2023-03-09 13:18] LABS: Partial Thromboplastin Time 52.1 Seconds (21.0-31.0)
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
[2023-03-09 13:19] LABS: Folate (Folic Acid),Ser orPlas 6.26 ng/ml (>5.38)
[2023-03-09] MEDS: VASOPRESSIN 20 UNITS in 0.9 % SODIUM CHLORIDE 100 ML IV SCH ×2 (13:50→21:21)
[2023-03-09 13:55] LABS: Allen Test Pos (Pos)
[2023-03-09] MEDS ORDERED: HYDROCORTISONE SOD 200 MG in SYRINGE 0 ML IV ONE (14:00)
[2023-03-09] MEDS ORDERED: PIPERACILLIN/TAZOBACTAM 4.5 GM/100 ML BAG IV ONE (14:00)
--- OUTSIDE RECORDS SUMMARY | 2023-03-09 14:15 | External Medical Summary ---
Author Name Unknown Address Unknown Organization [id number]:[place] [place] [facility] [address] [facility] [address] Laboratory Report Ordering Provider Test Date Status CHRIS BUSH 02/25/2023 07:07:56 Final Observation Date Value Abnormality Reference (Units ) Status WBC, Total 02/25/2023 07:07:56 4.60 4.00-10.80 (K/uL) Final RBC 02/25/2023 07:07:56 2.66 3.85-5.15 (M/uL) Final Hemoglobin 02/25/2023 07:07:56 8.1 Below low normal 12.0-15.3 (g/dL) Final HCT 02/25/2023 07:07:56 29.7 Below low normal 36.0-45.2 (%) Final MCV 02/25/2023 07:07:56 111.7 81.5-97.5 (fL) Final MCH 02/25/2023 07:07:56 30.5 27.0-34.0 (pg) Final MCHC 02/25/2023 07:07:56 27.3 32.0-36.0 (g/dL) Final RDW 02/25/2023 07:07:56 18.8 11.5-15.5 (%) Final Platelets 02/25/2023 07:07:56 164 140-400 (K/uL) Final MPV 02/25/2023 07:07:56 10.8 6.6-11.1 (fL) Final Nucleated erythrocytes/100 leukocytes [Ratio] in Blood by Automated count 02/25/2023 07:07:56 0 <=0 (/100 WBCs) Final Performing Location [facility] [place] [facility] [place] [place] [address]
--- OUTSIDE RECORDS SUMMARY | 2023-03-09 14:15 | External Medical Summary ---
Author Name Unknown Address Unknown Organization [id number]:LABORATORY [facility] [place] - [address] [facility] [place] [address] Laboratory Report Ordering Provider Test Date Status KATE HUTCHINS 02/27/2023 12:38:33 Final DIALYSIS USE ONLY

D raw at the initiation of Dialysis if latest renal function result is more than 24 hours ago. Observation Date Value Abnormality Reference (Units ) Status BUN 02/27/2023 12:38:33 25 Above high normal 6-20 (mg/dL) Final Creatinine 02/27/2023 12:38:33 5.2 Above high normal 0.5-1.0 (mg/dL) Final Glomerular filtration rate/1.73 sq M.predicted [Volume Rate/Area] in Serum, Plasma or Blood by Creatinine-based formula (CKD-EPI) 02/27/2023 12:38:33 9 Below low normal >=60 (mL/min) Final eGFR is calculated based on the CKD-EPI 2020 equation SODIUM 02/27/2023 12:38:33 134 Below low normal 135 -146 (mmol/L) Final Potassium 02/27/2023 12:38:33 4.4 3.5-5.1 (m mol/L) Final Cl 02/27/2023 12:38:33 98 98-107 (mm ol/L) Final CO2 02/27/2023 12:38:33 28 22-32 (mmo l/L) Final Anion gap 02/27/2023 12:38:33 8 7-15 (mmol /L) Final Glucose 02/27/2023 12:38:33 103 70-120 (mg /dL) Final Calcium 02/27/2023 12:38:33 9.1 8.4-10.2 ( mg/dL) Final Albumin 02/27/2023 12:38:33 2.8 Below low normal 3.8 -5.0 (g/dL) Final Phosphate 02/27/2023 12:38:33 5.3 Above high normal 2. 5-4.8 (mg/dL) Final Performing Location LABORATORY [facility] [place] - [address] [facility] [address]
--- OUTSIDE RECORDS SUMMARY | 2023-03-09 14:15 | External Medical Summary ---
Author Name Unknown Address Unknown Organization [id number]:[facility]ATORY [facility] - [address] [place] [address] Laboratory Report Ordering Provider Test Date Status CHRIS BUSH 02/25/2023 07:07:56 Final Observation Date Value Abnormality Reference (Units ) Status Phosphate 02/25/2023 07:07:56 4.8 2.5-4.8 (m g/dL) Final Performing Location LAB[facility]ATORY [facility] - [address] [place] [address]
--- OUTSIDE RECORDS SUMMARY | 2023-03-09 14:16 | External Medical Summary ---
Author Name Unknown Address Unknown Organization [id number]:LABORATORY [facility] [place] - [facility] [address] [place] [address] Laboratory Report Ordering Provider Test Date Status CHRIS BUSH 02/23/2023 06:59:00 Final Observation Date Value Abnormality Reference (Units ) Status WBC, Total 02/23/2023 06:59:00 5.08 4.00-10.80 (K/uL) Final RBC 02/23/2023 06:59:00 2.86 3.85-5.15 (M/uL) Final Hemoglobin 02/23/2023 06:59:00 8.9 Below low normal 12.0-15.3 (g/dL) Final HCT 02/23/2023 06:59:00 32.1 Below low normal 36.0-45.2 (%) Final MCV 02/23/2023 06:59:00 112.2 81.5-97.5 (fL) Final MCH 02/23/2023 06:59:00 31.1 27.0-34.0 (pg) Final MCHC 02/23/2023 06:59:00 27.7 32.0-36.0 (g/dL) Final RDW 02/23/2023 06:59:00 19.3 11.5-15.5 (%) Final Platelets 02/23/2023 06:59:00 170 140-400 (K/uL) Final MPV 02/23/2023 06:59:00 10.9 6.6-11.1 (fL) Final Nucleated erythrocytes/100 leukocytes [Ratio] in Blood by Automated count 02/23/2023 06:59:00 0 <=0 (/100 WBCs) Final Performing Location LABORATORY [facility] [place] - [facility] [place] [address]
--- OUTSIDE RECORDS SUMMARY | 2023-03-09 14:16 | External Medical Summary ---
Author Name Unknown Address Unknown Organization [id number][place] [facility] [place] [address] [place] [address] Laboratory Report Ordering Provider Test Date Status CHRIS BUSH 02/20/2023 07:23:00 Final Observation Date Value Abnormality Reference (Units ) Status BUN 02/20/2023 07:23:00 17 6-20 (mg/d L) Final Creatinine 02/20/2023 07:23:00 4.5 Above high normal 0 .5-1.0 (mg/dL) Final Results rechecked. Glomerular filtration rate/1.73 sq M.predicted [Volume Rate/Area] in Serum, Plasma or Blood by Creatinine-based formula (CKD-EPI) 02/20/2023 07:23:00 11 Below low normal >=60 (mL/min) Fin al eGFR is calculated based on the CKD-EPI 2020 equation SODIUM 02/20/2023 07:23:00 138 135-146 (m mol/L) Final Potassium 02/20/2023 07:23:00 4.0 3.5-5.1 (m mol/L) Final Cl 02/20/2023 07:23:00 102 98-107 (mm ol/L) Final CO2 02/20/2023 07:23:00 28 22-32 (mmo l/L) Final Anion gap 02/20/2023 07:23:00 8 7-15 (mmol /L) Final Glucose 02/20/2023 07:23:00 101 70-120 (mg /dL) Final Calcium 02/20/2023 07:23:00 10.0 8.4-10.2 ( mg/dL) Final Performing Location [facility] [place] [address] [place] [address]
--- OUTSIDE RECORDS SUMMARY | 2023-03-09 14:16 | External Medical Summary ---
Author Name Unknown Address Unknown Organization [id number]:[facility] [place] - [facility] [address] [place] [address] Laboratory Report Ordering Provider Test Date Status CHRIS BUSH 02/23/2023 06:59:00 Final Observation Date Value Abnormality Reference (Units ) Status BUN 02/23/2023 06:59:00 29 Above high normal 6-20 (mg/dL) Final Creatinine 02/23/2023 06:59:00 5.8 Above high normal 0.5-1.0 (mg/dL) Final Glomerular filtration rate/1.73 sq M.predicted [Volume Rate/Area] in Serum, Plasma or Blood by Creatinine-based formula (CKD-EPI) 02/23/2023 06:59:00 8 Below low normal >=60 (mL/min) Final eGFR is calculated based on the CKD-EPI 2020 equation SODIUM 02/23/2023 06:59:00 129 Below low normal 135 -146 (mmol/L) Final Potassium 02/23/2023 06:59:00 5.8 Above high normal 3. 5-5.1 (mmol/L) Final Cl 02/23/2023 06:59:00 96 Below low normal 98- 107 (mmol/L) Final CO2 02/23/2023 06:59:00 20 Below low normal 22- 32 (mmol/L) Final Anion gap 02/23/2023 06:59:00 13 7-15 (mmol /L) Final Glucose 02/23/2023 06:59:00 83 70-120 (mg /dL) Final Calcium 02/23/2023 06:59:00 9.0 8.4-10.2 ( mg/dL) Final Performing Location LAB[facility]ORY [facility] [place] - [address] [place] [address]
--- OUTSIDE RECORDS SUMMARY | 2023-03-09 14:16 | External Medical Summary ---
Author Name Unknown Address Unknown Organization [id number]:[facility]ATORY [facility] - [address] [place] [address] Laboratory Report Ordering Provider Test Date Status CHRIS BUSH 02/22/2023 09:48:00 Final Observation Date Value Abnormality Reference (Units ) Status Phosphate 02/22/2023 09:48:00 4.0 2.5-4.8 (m g/dL) Final Performing Location LAB[facility] - [address] [place] [address]
--- OUTSIDE RECORDS SUMMARY | 2023-03-09 14:16 | External Medical Summary ---
Author Name Unknown Address Unknown Organization [id number][place] [facility] [place] [facility] [address] [place] [address] Laboratory Report Ordering Provider Test Date Status CHRIS BUSH 02/22/2023 09:49:00 Final Observation Date Value Abnormality Reference (Units ) Status WBC, Total 02/22/2023 09:49:00 4.67 4.00-10.80 (K/uL) Final RBC 02/22/2023 09:49:00 2.56 3.85-5.15 (M/uL) Final Hemoglobin 02/22/2023 09:49:00 8.0 Below low normal 12.0-15.3 (g/dL) Final HCT 02/22/2023 09:49:00 29.0 Below low normal 36.0-45.2 (%) Final MCV 02/22/2023 09:49:00 113.3 81.5-97.5 (fL) Final MCH 02/22/2023 09:49:00 31.3 27.0-34.0 (pg) Final MCHC 02/22/2023 09:49:00 27.6 32.0-36.0 (g/dL) Final RDW 02/22/2023 09:49:00 19.5 11.5-15.5 (%) Final Platelets 02/22/2023 09:49:00 175 140-400 (K/uL) Final MPV 02/22/2023 09:49:00 11.0 6.6-11.1 (fL) Final Nucleated erythrocytes/100 leukocytes [Ratio] in Blood by Automated count 02/22/2023 09:49:00 0 <=0 (/100 WBCs) Final Performing Location [facility] [place] [address] [place] [address]
--- OUTSIDE RECORDS SUMMARY | 2023-03-09 14:16 | External Medical Summary ---
Author Name Unknown Address Unknown Organization [id number]:[facility] - [address] [place] [address] Laboratory Report Ordering Provider Test Date Status CHRIS BUSH 02/21/2023 07:22:52 Final Observation Date Value Abnormality Reference (Units ) Status Magnesium 02/21/2023 07:22:52 2.1 1.5-2.6 (m g/dL) Final Performing Location [facility] - [address] [place] [address]
--- OUTSIDE RECORDS SUMMARY | 2023-03-09 14:16 | External Medical Summary ---
Author Name Unknown Address Unknown Organization [id number]:[facility] - [address] [place] [address] Laboratory Report Ordering Provider Test Date Status CHRIS BUSH 02/20/2023 07:23:00 Final Observation Date Value Abnormality Reference (Units ) Status Magnesium 02/20/2023 07:23:00 2.1 1.5-2.6 (m g/dL) Final Performing Location [facility] - [address] [place] [address]
--- OUTSIDE RECORDS SUMMARY | 2023-03-09 14:16 | External Medical Summary ---
Author Name Unknown Address Unknown Organization [id number]:[facility] - [address] [place] [address] Laboratory Report Ordering Provider Test Date Status CHRIS BUSH 02/20/2023 07:23:00 Final Observation Date Value Abnormality Reference (Units ) Status Phosphate 02/20/2023 07:23:00 3.9 2.5-4.8 (m g/dL) Final Performing Location [facility] - [address] [place] [address]
--- OUTSIDE RECORDS SUMMARY | 2023-03-09 14:16 | External Medical Summary ---
Author Name Unknown Address Unknown Organization K01:LAB[place]ATORY [facility] [place] [address] [place] [address] Laboratory Report Ordering Provider Test Date Status CHRIS BUSH 02/21/2023 07:22:52 Final Observation Date Value Abnormality Reference (Units ) Status BUN 02/21/2023 07:22:52 28 Above high normal 6-20 (mg/dL) Final Creatinine 02/21/2023 07:22:52 6.1 Above high normal 0.5-1.0 (mg/dL) Final Glomerular filtration rate/1.73 sq M.predicted [Volume Rate/Area] in Serum, Plasma or Blood by Creatinine-based formula (CKD-EPI) 02/21/2023 07:22:52 7 Below low normal >=60 (mL/min) Final eGFR is calculated based on the CKD-EPI 2020 equation SODIUM 02/21/2023 07:22:52 139 135-146 (m mol/L) Final Potassium 02/21/2023 07:22:52 4.5 3.5-5.1 (m mol/L) Final Cl 02/21/2023 07:22:52 102 98-107 (mm ol/L) Final CO2 02/21/2023 07:22:52 28 22-32 (mmo l/L) Final Anion gap 02/21/2023 07:22:52 9 7-15 (mmol /L) Final Glucose 02/21/2023 07:22:52 102 70-120 (mg /dL) Final Calcium 02/21/2023 07:22:52 9.5 8.4-10.2 ( mg/dL) Final Performing Location LABORATORY [facility] [place] [address] [place] [address]
--- OUTSIDE RECORDS SUMMARY | 2023-03-09 14:16 | External Medical Summary ---
Author Name Unknown Address Unknown Organization K01:[facility]ORY [facility] [place] [facility] [place] [address] Laboratory Report Ordering Provider Test Date Status CHRIS BUSH 02/20/2023 07:24:00 Final Observation Date Value Abnormality Reference (Units ) Status WBC, Total 02/20/2023 07:24:00 5.18 4.00-10.80 (K/uL) Final RBC 02/20/2023 07:24:00 2.82 3.85-5.15 (M/uL) Final Hemoglobin 02/20/2023 07:24:00 8.6 Below low normal 12.0-15.3 (g/dL) Final HCT 02/20/2023 07:24:00 31.6 Below low normal 36.0-45.2 (%) Final MCV 02/20/2023 07:24:00 112.1 81.5-97.5 (fL) Final MCH 02/20/2023 07:24:00 30.5 27.0-34.0 (pg) Final MCHC 02/20/2023 07:24:00 27.2 32.0-36.0 (g/dL) Final RDW 02/20/2023 07:24:00 20.0 11.5-15.5 (%) Final Platelets 02/20/2023 07:24:00 196 140-400 (K/uL) Final MPV 02/20/2023 07:24:00 10.8 6.6-11.1 (fL) Final Nucleated erythrocytes/100 leukocytes [Ratio] in Blood by Automated count 02/20/2023 07:24:00 0 <=0 (/100 WBCs) Final Performing Location LAB[facility]ORY [facility] [place] [address] [place] [address]
--- OUTSIDE RECORDS SUMMARY | 2023-03-09 14:16 | External Medical Summary ---
Author Name Unknown Address Unknown Organization K01:LABORATORY [facility] [place] - [facility] [address] [facility] [address] Laboratory Report Ordering Provider Test Date Status CHRIS BUSH 02/21/2023 07:22:52 Final Observation Date Value Abnormality Reference (Units ) Status WBC, Total 02/21/2023 07:22:52 4.64 4.00-10.80 (K/uL) Final RBC 02/21/2023 07:22:52 2.70 3.85-5.15 (M/uL) Final Hemoglobin 02/21/2023 07:22:52 8.3 Below low normal 12.0-15.3 (g/dL) Final HCT 02/21/2023 07:22:52 30.2 Below low normal 36.0-45.2 (%) Final MCV 02/21/2023 07:22:52 111.9 81.5-97.5 (fL) Final MCH 02/21/2023 07:22:52 30.7 27.0-34.0 (pg) Final MCHC 02/21/2023 07:22:52 27.5 32.0-36.0 (g/dL) Final RDW 02/21/2023 07:22:52 19.7 11.5-15.5 (%) Final Platelets 02/21/2023 07:22:52 187 140-400 (K/uL) Final MPV 02/21/2023 07:22:52 10.7 6.6-11.1 (fL) Final Nucleated erythrocytes/100 leukocytes [Ratio] in Blood by Automated count 02/21/2023 07:22:52 0 <=0 (/100 WBCs) Final Performing Location LABORATORY [facility] [place] - [address] [place] [address]
--- OUTSIDE RECORDS SUMMARY | 2023-03-09 14:16 | External Medical Summary ---
Author Name Unknown Address Unknown Organization K01:LABORATORY [facility] - [address] [place] [address] Laboratory Report Ordering Provider Test Date Status CHRIS BUSH 02/21/2023 07:22:52 Final Observation Date Value Abnormality Reference (Units ) Status Phosphate 02/21/2023 07:22:52 5.0 Above high normal 2. 5-4.8 (mg/dL) Final Performing Location LABORATORY [facility] - [address] [place] [address]
--- OUTSIDE RECORDS SUMMARY | 2023-03-09 14:16 | External Medical Summary ---
Author Name Unknown Address Unknown Organization K01:LABORATORY [facility] [place] - [address] [place] [address] Laboratory Report Ordering Provider Test Date Status CHRIS BUSH 02/22/2023 09:48:00 Final Observation Date Value Abnormality Reference (Units ) Status BUN 02/22/2023 09:48:00 21 Above high normal 6-20 (mg/dL) Final Creatinine 02/22/2023 09:48:00 4.5 Above high normal 0.5-1.0 (mg/dL) Final Glomerular filtration rate/1.73 sq M.predicted [Volume Rate/Area] in Serum, Plasma or Blood by Creatinine-based formula (CKD-EPI) 02/22/2023 09:48:00 11 Below low normal >=60 (mL/min) Final eGFR is calculated based on the CKD-EPI 2020 equation SODIUM 02/22/2023 09:48:00 136 135-146 (m mol/L) Final Potassium 02/22/2023 09:48:00 4.5 3.5-5.1 (m mol/L) Final Cl 02/22/2023 09:48:00 100 98-107 (mm ol/L) Final CO2 02/22/2023 09:48:00 27 22-32 (mmo l/L) Final Anion gap 02/22/2023 09:48:00 9 7-15 (mmol /L) Final Glucose 02/22/2023 09:48:00 107 70-120 (mg /dL) Final Calcium 02/22/2023 09:48:00 9.7 8.4-10.2 ( mg/dL) Final Performing Location LABORATORY [facility] [place] - [address] [place] [address]
--- OUTSIDE RECORDS SUMMARY | 2023-03-09 14:16 | External Medical Summary ---
Author Name Unknown Address Unknown Organization K01:LABORATORY [facility] [place] - [address] [place] [address] Laboratory Report Ordering Provider Test Date Status CHRIS BUSH 02/23/2023 06:59:00 Final Observation Date Value Abnormality Reference (Units ) Status Magnesium 02/23/2023 06:59:00 2.9 Above high normal 1. 5-2.6 (mg/dL) Final Performing Location LABORATORY [facility] - [address] [place] [address]
--- OUTSIDE RECORDS SUMMARY | 2023-03-09 14:16 | External Medical Summary ---
Author Name Unknown Address Unknown Organization K01:LABORATORY [facility] [place] - [address] [place] [address] Laboratory Report Ordering Provider Test Date Status CHRIS BUSH 02/25/2023 07:07:56 Final Observation Date Value Abnormality Reference (Units ) Status BUN 02/25/2023 07:07:56 23 Above high normal 6-20 (mg/dL) Final Creatinine 02/25/2023 07:07:56 5.2 Above high normal 0.5-1.0 (mg/dL) Final Glomerular filtration rate/1.73 sq M.predicted [Volume Rate/Area] in Serum, Plasma or Blood by Creatinine-based formula (CKD-EPI) 02/25/2023 07:07:56 9 Below low normal >=60 (mL/min) Final eGFR is calculated based on the CKD-EPI 2020 equation SODIUM 02/25/2023 07:07:56 138 135-146 (m mol/L) Final Potassium 02/25/2023 07:07:56 4.8 3.5-5.1 (m mol/L) Final Cl 02/25/2023 07:07:56 98 98-107 (mm ol/L) Final CO2 02/25/2023 07:07:56 28 22-32 (mmo l/L) Final Anion gap 02/25/2023 07:07:56 12 7-15 (mmol /L) Final Glucose 02/25/2023 07:07:56 97 70-120 (mg /dL) Final Calcium 02/25/2023 07:07:56 9.2 8.4-10.2 ( mg/dL) Final Performing Location LABORATORY [facility] [place] - [address] [place] [address]
--- OUTSIDE RECORDS SUMMARY | 2023-03-09 14:17 | External Medical Summary ---
Author Name Unknown Address Unknown Organization K01:LABORATORY [facility] [place] - [facility] [address] [place] [address] Laboratory Report Ordering Provider Test Date Status CHRIS BUSH 02/18/2023 11:04:00 Final Observation Date Value Abnormality Reference (Units ) Status WBC, Total 02/18/2023 11:04:00 4.53 4.00-10.80 (K/uL) Final RBC 02/18/2023 11:04:00 2.30 3.85-5.15 (M/uL) Final Hemoglobin 02/18/2023 11:04:00 7.3 Below low normal 12.0-15.3 (g/dL) Final HCT 02/18/2023 11:04:00 26.1 Below low normal 36.0-45.2 (%) Final MCV 02/18/2023 11:04:00 113.5 81.5-97.5 (fL) Final MCH 02/18/2023 11:04:00 31.7 27.0-34.0 (pg) Final MCHC 02/18/2023 11:04:00 28.0 32.0-36.0 (g/dL) Final RDW 02/18/2023 11:04:00 20.7 11.5-15.5 (%) Final Platelets 02/18/2023 11:04:00 159 140-400 (K/uL) Final MPV 02/18/2023 11:04:00 10.9 6.6-11.1 (fL) Final Nucleated erythrocytes/100 leukocytes [Ratio] in Blood by Automated count 02/18/2023 11:04:00 0 <=0 (/100 WBCs) Final Performing Location LABORATORY [facility] [place] - [facility] [place] [address]
--- OUTSIDE RECORDS SUMMARY | 2023-03-09 14:17 | External Medical Summary ---
Author Name Unknown Address Unknown Organization K01:LAB[place]ORY [facility] [facility] [place] [address] [place] [address] Laboratory Report Ordering Provider Test Date Status CHRIS BUSH 02/17/2023 07:58:52 Final Observation Date Value Abnormality Reference (Units ) Status BUN 02/17/2023 07:58:52 32 Above high normal 6-20 (mg/dL) Final Creatinine 02/17/2023 07:58:52 5.8 Above high normal 0.5-1.0 (mg/dL) Final Glomerular filtration rate/1.73 sq M.predicted [Volume Rate/Area] in Serum, Plasma or Blood by Creatinine-based formula (CKD-EPI) 02/17/2023 07:58:52 8 Below low normal >=60 (mL/min) Final eGFR is calculated based on the CKD-EPI 2020 equation SODIUM 02/17/2023 07:58:52 138 135-146 (m mol/L) Final Potassium 02/17/2023 07:58:52 5.1 3.5-5.1 (m mol/L) Final Cl 02/17/2023 07:58:52 103 98-107 (mm ol/L) Final CO2 02/17/2023 07:58:52 26 22-32 (mmo l/L) Final Anion gap 02/17/2023 07:58:52 9 7-15 (mmol /L) Final Glucose 02/17/2023 07:58:52 82 70-120 (mg /dL) Final Calcium 02/17/2023 07:58:52 9.5 8.4-10.2 ( mg/dL) Final Performing Location LABORATORY [facility] [place] [place] [address] [place] [address]
--- OUTSIDE RECORDS SUMMARY | 2023-03-09 14:17 | External Medical Summary ---
Author Name Unknown Address Unknown Organization K01:LABORATORY [facility] [place] - [facility] [address] [place] [address] Laboratory Report Ordering Provider Test Date Status CHRIS BUSH 02/19/2023 06:26:00 Final Observation Date Value Abnormality Reference (Units ) Status WBC, Total 02/19/2023 06:26:00 4.70 4.00-10.80 (K/uL) Final RBC 02/19/2023 06:26:00 2.77 3.85-5.15 (M/uL) Final Hemoglobin 02/19/2023 06:26:00 8.6 Below low normal 12.0-15.3 (g/dL) Final HCT 02/19/2023 06:26:00 31.4 Below low normal 36.0-45.2 (%) Final MCV 02/19/2023 06:26:00 113.4 81.5-97.5 (fL) Final MCH 02/19/2023 06:26:00 31.0 27.0-34.0 (pg) Final MCHC 02/19/2023 06:26:00 27.4 32.0-36.0 (g/dL) Final RDW 02/19/2023 06:26:00 20.0 11.5-15.5 (%) Final Platelets 02/19/2023 06:26:00 192 140-400 (K/uL) Final MPV 02/19/2023 06:26:00 10.9 6.6-11.1 (fL) Final Nucleated erythrocytes/100 leukocytes [Ratio] in Blood by Automated count 02/19/2023 06:26:00 0 <=0 (/100 WBCs) Final Performing Location LABORATORY [facility] [place] - [facility] [place] [address]
--- OUTSIDE RECORDS SUMMARY | 2023-03-09 14:17 | External Medical Summary ---
Author Name Unknown Address Unknown Organization K01:LABORATORY [facility] - [address] [place] [address] Laboratory Report Ordering Provider Test Date Status CHRIS BUSH 02/19/2023 06:26:00 Final Observation Date Value Abnormality Reference (Units ) Status Phosphate 02/19/2023 06:26:00 4.5 2.5-4.8 (m g/dL) Final Performing Location LABORATORY [facility] - [address] [place] [address]
--- OUTSIDE RECORDS SUMMARY | 2023-03-09 14:17 | External Medical Summary ---
Author Name Unknown Address Unknown Organization K01:LABORATORY [facility] - [address] [place] [address] Laboratory Report Ordering Provider Test Date Status CHRIS BUSH 02/17/2023 07:58:52 Final Observation Date Value Abnormality Reference (Units ) Status Phosphate 02/17/2023 07:58:52 4.7 2.5-4.8 (m g/dL) Final Performing Location LABORATORY [facility] - [address] [place] [address]
--- OUTSIDE RECORDS SUMMARY | 2023-03-09 14:17 | External Medical Summary ---
Author Name Unknown Address Unknown Organization K01:[place]ORY [facility] [place] [facility] [place][note 3] [address] [place] [address] Laboratory Report Ordering Provider Test Date Status CHRIS BUSH 02/17/2023 07:58:52 Final Observation Date Value Abnormality Reference (Units ) Status WBC, Total 02/17/2023 07:58:52 4.83 4.00-10.80 (K/uL) Final RBC 02/17/2023 07:58:52 2.53 3.85-5.15 (M/uL) Final Hemoglobin 02/17/2023 07:58:52 7.9 Below low normal 12.0-15.3 (g/dL) Final HCT 02/17/2023 07:58:52 28.2 Below low normal 36.0-45.2 (%) Final MCV 02/17/2023 07:58:52 111.5 81.5-97.5 (fL) Final MCH 02/17/2023 07:58:52 31.2 27.0-34.0 (pg) Final MCHC 02/17/2023 07:58:52 28.0 32.0-36.0 (g/dL) Final RDW 02/17/2023 07:58:52 20.8 11.5-15.5 (%) Final Platelets 02/17/2023 07:58:52 167 140-400 (K/uL) Final MPV 02/17/2023 07:58:52 10.9 6.6-11.1 (fL) Final Nucleated erythrocytes/100 leukocytes [Ratio] in Blood by Automated count 02/17/2023 07:58:52 0 <=0 (/100 WBCs) Final Performing Location LABORATORY [facility] [place] - [address] [place] [address]
--- OUTSIDE RECORDS SUMMARY | 2023-03-09 14:17 | External Medical Summary ---
Author Name Unknown Address Unknown Organization K01:LABORATORY [facility] - [address] [place] [address] Laboratory Report Ordering Provider Test Date Status CHRIS BUSH 02/18/2023 11:04:00 Final Observation Date Value Abnormality Reference (Units ) Status Phosphate 02/18/2023 11:04:00 3.9 2.5-4.8 (m g/dL) Final Performing Location LABORATORY [facility] - [address] [place] [address]
--- OUTSIDE RECORDS SUMMARY | 2023-03-09 14:17 | External Medical Summary ---
Author Name Unknown Address Unknown Organization K01:LABORATORY [facility] [place] - [address] [place] [address] Laboratory Report Ordering Provider Test Date Status CHRIS BUSH 02/19/2023 06:26:00 Final Observation Date Value Abnormality Reference (Units ) Status BUN 02/19/2023 06:26:00 23 Above high normal 6-20 (mg/dL) Final Creatinine 02/19/2023 06:26:00 5.6 Above high normal 0.5-1.0 (mg/dL) Final Glomerular filtration rate/1.73 sq M.predicted [Volume Rate/Area] in Serum, Plasma or Blood by Creatinine-based formula (CKD-EPI) 02/19/2023 06:26:00 8 Below low normal >=60 (mL/min) Final eGFR is calculated based on the CKD-EPI 2020 equation SODIUM 02/19/2023 06:26:00 134 Below low normal 135 -146 (mmol/L) Final Potassium 02/19/2023 06:26:00 4.5 3.5-5.1 (m mol/L) Final Cl 02/19/2023 06:26:00 100 98-107 (mm ol/L) Final CO2 02/19/2023 06:26:00 24 22-32 (mmo l/L) Final Anion gap 02/19/2023 06:26:00 10 7-15 (mmol /L) Final Glucose 02/19/2023 06:26:00 76 70-120 (mg /dL) Final Calcium 02/19/2023 06:26:00 9.7 8.4-10.2 ( mg/dL) Final Performing Location LABORATORY [facility] [place] - [address] [place] [address]
--- OUTSIDE RECORDS SUMMARY | 2023-03-09 14:17 | External Medical Summary ---
Author Name Unknown Address Unknown Organization K01:LABORATORY [facility] - [address] [place] [address] Laboratory Report Ordering Provider Test Date Status CHRIS BUSH 02/18/2023 11:04:00 Final Observation Date Value Abnormality Reference (Units ) Status Magnesium 02/18/2023 11:04:00 2.3 1.5-2.6 (m g/dL) Final Performing Location LABORATORY [facility] - [address] [place] [address]
--- OUTSIDE RECORDS SUMMARY | 2023-03-09 14:17 | External Medical Summary ---
Author Name Unknown Address Unknown Organization K01:LABORATORY [facility] - [address] [place] [address] Laboratory Report Ordering Provider Test Date Status CHRIS BUSH 02/19/2023 06:26:00 Final Observation Date Value Abnormality Reference (Units ) Status Magnesium 02/19/2023 06:26:00 2.2 1.5-2.6 (m g/dL) Final Performing Location LABORATORY [facility] - [address] [place] [address]
--- OUTSIDE RECORDS SUMMARY | 2023-03-09 14:18 | External Medical Summary ---
Author Name Unknown Address Unknown Organization K01:LABORATORY [facility] - [address] [place] [address] Laboratory Report Ordering Provider Test Date Status SHERRY LOONEY 02/10/2023 07:04:17 Final Observation Date Value Abnormality Reference (Units ) Status Phosphate 02/10/2023 07:04:17 3.4 2.5-4.8 (m g/dL) Final Performing Location LABORATORY [facility] - [address] [place] [address]
--- OUTSIDE RECORDS SUMMARY | 2023-03-09 14:18 | External Medical Summary ---
Author Name Unknown Address Unknown Organization K01:LABORATORY [place] - [address] [place] [address] Laboratory Report Ordering Provider Test Date Status SHERRY LOONEY 02/10/2023 07:04:17 Final Observation Date Value Abnormality Reference (Units ) Status BUN 02/10/2023 07:04:17 15 6-20 (mg/dL) Final Creatinine 02/10/2023 07:04:17 3.2 Above high normal 0.5-1.0 (mg/dL) Final Glomerular filtration rate/1.73 sq M.predicted [Volume Rate/Area] in Serum, Plasma or Blood by Creatinine-based formula (CKD-EPI) 02/10/2023 07:04:17 16 Below low normal >=60 (mL/min) Final eGFR is calculated based on the CKD-EPI 2020 equation SODIUM 02/10/2023 07:04:17 136 135-146 (m mol/L) Final Potassium 02/10/2023 07:04:17 3.8 3.5-5.1 (m mol/L) Final Cl 02/10/2023 07:04:17 102 98-107 (mm ol/L) Final CO2 02/10/2023 07:04:17 27 22-32 (mmo l/L) Final Anion gap 02/10/2023 07:04:17 7 7-15 (mmol /L) Final Glucose 02/10/2023 07:04:17 94 70-120 (mg /dL) Final Calcium 02/10/2023 07:04:17 9.6 8.4-10.2 ( mg/dL) Final Performing Location LABORATORY [place] - [address] [place] [address]
--- OUTSIDE RECORDS SUMMARY | 2023-03-09 14:18 | External Medical Summary ---
Author Name Unknown Address Unknown Organization K01:LABORATORY [facility] - [address] [place] [address] Laboratory Report Ordering Provider Test Date Status SHERRY LOONEY 02/14/2023 14:13:00 Final Observation Date Value Abnormality Reference (Units ) Status Magnesium 02/14/2023 14:13:00 2.2 1.5-2.6 (m g/dL) Final Performing Location LABORATORY [facility] - [address] [place] [address]
--- OUTSIDE RECORDS SUMMARY | 2023-03-09 14:18 | External Medical Summary ---
Author Name Unknown Address Unknown Organization K01:LABORATORY [facility] - [address] [place] [address] Laboratory Report Ordering Provider Test Date Status SHERRY LOONEY 02/12/2023 07:34:00 Final Observation Date Value Abnormality Reference (Units ) Status Phosphate 02/12/2023 07:34:00 4.5 2.5-4.8 (m g/dL) Final Performing Location LAB[facility]ATORY [facility] - [address] [place] [address]
--- OUTSIDE RECORDS SUMMARY | 2023-03-09 14:18 | External Medical Summary ---
Author Name Unknown Address Unknown Organization K01:LABORATORY [facility] - [address] [place] [address] Laboratory Report Ordering Provider Test Date Status SHERRY LOONEY 02/15/2023 06:56:53 Final Observation Date Value Abnormality Reference (Units ) Status Magnesium 02/15/2023 06:56:53 2.2 1.5-2.6 (m g/dL) Final Performing Location LAB[facility]ATORY [facility] - [address] [place] [address]
--- OUTSIDE RECORDS SUMMARY | 2023-03-09 14:18 | External Medical Summary ---
Author Name Unknown Address Unknown Organization K01:[place] [facility] [place] [address] [place], [place] [address] [address] Laboratory Report Ordering Provider Test Date Status SHERRY LOONEY 02/15/2023 06:56:53 Final Observation Date Value Abnormality Reference (Units ) Status WBC, Total 02/15/2023 06:56:53 5.18 4.00-10.80 (K/uL) Final RBC 02/15/2023 06:56:53 2.46 3.85-5.15 (M/uL) Final Hemoglobin 02/15/2023 06:56:53 7.8 Below low normal 12.0-15.3 (g/dL) Final HCT 02/15/2023 06:56:53 27.3 Below low normal 36.0-45.2 (%) Final MCV 02/15/2023 06:56:53 111.0 81.5-97.5 (fL) Final MCH 02/15/2023 06:56:53 31.7 27.0-34.0 (pg) Final MCHC 02/15/2023 06:56:53 28.6 32.0-36.0 (g/dL) Final RDW 02/15/2023 06:56:53 20.9 11.5-15.5 (%) Final Platelets 02/15/2023 06:56:53 145 140-400 (K/uL) Final MPV 02/15/2023 06:56:53 11.0 6.6-11.1 (fL) Final Nucleated erythrocytes/100 leukocytes [Ratio] in Blood by Automated count 02/15/2023 06:56:53 0 <=0 (/100 WBCs) Final Performing Location [facility] [facility] [place] [address] [place] [address]
--- OUTSIDE RECORDS SUMMARY | 2023-03-09 14:18 | External Medical Summary ---
Author Name Unknown Address Unknown Organization K01:LABORATORY [facility] [place] - [address] [place] [address] Laboratory Report Ordering Provider Test Date Status SHERRY LOONEY 02/13/2023 06:36:00 Final Observation Date Value Abnormality Reference (Units ) Status Phosphate 02/13/2023 06:36:00 5.2 Above high normal 2. 5-4.8 (mg/dL) Final Performing Location LAB[facility] - [address] [place] [address]
--- OUTSIDE RECORDS SUMMARY | 2023-03-09 14:18 | External Medical Summary ---
Author Name Unknown Address Unknown Organization K01:LABORATORY [facility] - [address] [place] [address] Laboratory Report Ordering Provider Test Date Status SHERRY LOONEY 02/13/2023 06:36:00 Final Observation Date Value Abnormality Reference (Units ) Status Magnesium 02/13/2023 06:36:00 2.2 1.5-2.6 (m g/dL) Final Performing Location LAB[facility]ORY [facility] - [address] [place] [address]
--- OUTSIDE RECORDS SUMMARY | 2023-03-09 14:18 | External Medical Summary ---
Author Name Unknown Address Unknown Organization K01:[place] [facility] [place] [facility] [address] [facility] [address] Laboratory Report Ordering Provider Test Date Status SHERRY LOONEY 02/14/2023 14:13:00 Final Observation Date Value Abnormality Reference (Units ) Status BUN 02/14/2023 14:13:00 31 Above high normal 6-20 (mg/dL) Final Creatinine 02/14/2023 14:13:00 5.5 Above high normal 0.5-1.0 (mg/dL) Final Glomerular filtration rate/1.73 sq M.predicted [Volume Rate/Area] in Serum, Plasma or Blood by Creatinine-based formula (CKD-EPI) 02/14/2023 14:13:00 9 Below low normal >=60 (mL/min) Final eGFR is calculated based on the CKD-EPI 2020 equation SODIUM 02/14/2023 14:13:00 135 135-146 (m mol/L) Final Potassium 02/14/2023 14:13:00 4.8 3.5-5.1 (m mol/L) Final Cl 02/14/2023 14:13:00 101 98-107 (mm ol/L) Final CO2 02/14/2023 14:13:00 20 Below low normal 22- 32 (mmol/L) Final Anion gap 02/14/2023 14:13:00 14 7-15 (mmol /L) Final Glucose 02/14/2023 14:13:00 124 Above high normal 70 -120 (mg/dL) Final Calcium 02/14/2023 14:13:00 9.6 8.4-10.2 ( mg/dL) Final Performing Location [place] [facility] [place] [address] [place] [address]
--- OUTSIDE RECORDS SUMMARY | 2023-03-09 14:18 | External Medical Summary ---
Author Name Unknown Address Unknown Organization K01:LABORATORY [facility] - [address] [place] [address] Laboratory Report Ordering Provider Test Date Status SHERRY LOONEY 02/14/2023 14:13:00 Final Observation Date Value Abnormality Reference (Units ) Status Phosphate 02/14/2023 14:13:00 4.1 2.5-4.8 (m g/dL) Final Performing Location LAB[facility]ORY [facility] - [address] [place] [address]
--- OUTSIDE RECORDS SUMMARY | 2023-03-09 14:18 | External Medical Summary ---
Author Name Unknown Address Unknown Organization K01:LAB[facility]ATORY [facility] - [address] [place] [address] Laboratory Report Ordering Provider Test Date Status SHERRY LOONEY 02/15/2023 06:56:53 Final Observation Date Value Abnormality Reference (Units ) Status Phosphate 02/15/2023 06:56:53 4.6 2.5-4.8 (m g/dL) Final Performing Location [facility] - [address] [place] [address]
--- OUTSIDE RECORDS SUMMARY | 2023-03-09 14:18 | External Medical Summary ---
Author Name Unknown Address Unknown Organization K01:LABORATORY [facility] [place] - [address] [place] [address] Laboratory Report Ordering Provider Test Date Status SHERRY LOONEY 02/12/2023 07:34:00 Final Observation Date Value Abnormality Reference (Units ) Status WBC, Total 02/12/2023 07:34:00 7.07 4.00-10.80 (K/uL) Final RBC 02/12/2023 07:34:00 2.56 3.85-5.15 (M/uL) Final Hemoglobin 02/12/2023 07:34:00 8.1 Below low normal 12.0-15.3 (g/dL) Final HCT 02/12/2023 07:34:00 29.2 Below low normal 36.0-45.2 (%) Final MCV 02/12/2023 07:34:00 114.1 81.5-97.5 (fL) Final MCH 02/12/2023 07:34:00 31.6 27.0-34.0 (pg) Final MCHC 02/12/2023 07:34:00 27.7 32.0-36.0 (g/dL) Final RDW 02/12/2023 07:34:00 21.6 11.5-15.5 (%) Final Platelets 02/12/2023 07:34:00 96 Below low normal 140-400 (K/uL) Final MPV 02/12/2023 07:34:00 11.9 6.6-11.1 (fL) Final Nucleated erythrocytes/100 leukocytes [Ratio] in Blood by Automated count 02/12/2023 07:34:00 0 <=0 (/100 WBCs) Final Performing Location LABORATORY [facility] [place] - [address] [place] [address]
--- OUTSIDE RECORDS SUMMARY | 2023-03-09 14:18 | External Medical Summary ---
Author Name Unknown Address Unknown Organization [id number]:LABORATORY [facility] [place] [address] [place] [address] Laboratory Report Ordering Provider Test Date Status SHERRY LOONEY 02/13/2023 06:36:00 Final Observation Date Value Abnormality Reference (Units ) Status WBC, Total 02/13/2023 06:36:00 6.39 4.00-10.80 (K/uL) Final RBC 02/13/2023 06:36:00 2.59 3.85-5.15 (M/uL) Final Hemoglobin 02/13/2023 06:36:00 8.2 Below low normal 12.0-15.3 (g/dL) Final HCT 02/13/2023 06:36:00 28.9 Below low normal 36.0-45.2 (%) Final MCV 02/13/2023 06:36:00 111.6 81.5-97.5 (fL) Final MCH 02/13/2023 06:36:00 31.7 27.0-34.0 (pg) Final MCHC 02/13/2023 06:36:00 28.4 32.0-36.0 (g/dL) Final RDW 02/13/2023 06:36:00 21.1 11.5-15.5 (%) Final Platelets 02/13/2023 06:36:00 98 Below low normal 140-400 (K/uL) Final MPV 02/13/2023 06:36:00 11.7 6.6-11.1 (fL) Final Nucleated erythrocytes/100 leukocytes [Ratio] in Blood by Automated count 02/13/2023 06:36:00 1 Above high normal <=0 (/100 WBCs) Final Performing Location LABORATORY [facility] [place] [address] [place] [address]
--- OUTSIDE RECORDS SUMMARY | 2023-03-09 14:18 | External Medical Summary ---
Author Name Unknown Address Unknown Organization K01:LAB[facility]ATORY [facility] - [address] [place] [address] Laboratory Report Ordering Provider Test Date Status SHERRY LOONEY 02/12/2023 07:34:00 Final Observation Date Value Abnormality Reference (Units ) Status Magnesium 02/12/2023 07:34:00 2.3 1.5-2.6 (m g/dL) Final Performing Location LAB[facility]ATORY [facility] - [address] [place] [address]
--- OUTSIDE RECORDS SUMMARY | 2023-03-09 14:18 | External Medical Summary ---
Author Name Unknown Address Unknown Organization [id number]:LABORATORY [facility] - [address] [place] [address] Laboratory Report Ordering Provider Test Date Status SHERRY LOONEY 02/10/2023 07:04:17 Final Observation Date Value Abnormality Reference (Units ) Status Magnesium 02/10/2023 07:04:17 2.0 1.5-2.6 (m g/dL) Final Performing Location LAB[facility]ATORY [facility] - [address] [place] [address]
--- OUTSIDE RECORDS SUMMARY | 2023-03-09 14:18 | External Medical Summary ---
Author Name Unknown Address Unknown Organization K01:[place] [facility] [place] [facility] [address] [place] [address] Laboratory Report Ordering Provider Test Date Status SHERRY LOONEY 02/12/2023 07:34:00 Final Observation Date Value Abnormality Reference (Units ) Status BUN 02/12/2023 07:34:00 37 Above high normal 6-20 (mg/dL) Final Creatinine 02/12/2023 07:34:00 7.1 Above high normal 0.5-1.0 (mg/dL) Final Glomerular filtration rate/1.73 sq M.predicted [Volume Rate/Area] in Serum, Plasma or Blood by Creatinine-based formula (CKD-EPI) 02/12/2023 07:34:00 6 Below low normal >=60 (mL/min) Final eGFR is calculated based on the CKD-EPI 2020 equation SODIUM 02/12/2023 07:34:00 138 135-146 (m mol/L) Final Potassium 02/12/2023 07:34:00 5.3 Above high normal 3. 5-5.1 (mmol/L) Final Cl 02/12/2023 07:34:00 105 98-107 (mm ol/L) Final CO2 02/12/2023 07:34:00 23 22-32 (mmo l/L) Final Anion gap 02/12/2023 07:34:00 10 7-15 (mmol /L) Final Glucose 02/12/2023 07:34:00 94 70-120 (mg /dL) Final Calcium 02/12/2023 07:34:00 9.9 8.4-10.2 ( mg/dL) Final Performing Location [place] [facility] [place] [facility] [address] [place] [address]
--- OUTSIDE RECORDS SUMMARY | 2023-03-09 14:19 | External Medical Summary ---
Author Name Unknown Address Unknown Organization K01:LABORATORY [facility] [place] - [address] [place] [address] Laboratory Report Ordering Provider Test Date Status SHERRY LOONEY 02/07/2023 07:27:00 Final Observation Date Value Abnormality Reference (Units ) Status BUN 02/07/2023 07:27:00 28 Above high normal 6-20 (mg/dL) Final Creatinine 02/07/2023 07:27:00 4.7 Above high normal 0.5-1.0 (mg/dL) Final Glomerular filtration rate/1.73 sq M.predicted [Volume Rate/Area] in Serum, Plasma or Blood by Creatinine-based formula (CKD-EPI) 02/07/2023 07:27:00 10 Below low normal >=60 (mL/min) Final eGFR is calculated based on the CKD-EPI 2020 equation SODIUM 02/07/2023 07:27:00 139 135-146 (m mol/L) Final Potassium 02/07/2023 07:27:00 4.5 3.5-5.1 (m mol/L) Final Cl 02/07/2023 07:27:00 103 98-107 (mm ol/L) Final CO2 02/07/2023 07:27:00 24 22-32 (mmo l/L) Final Anion gap 02/07/2023 07:27:00 12 7-15 (mmol /L) Final Glucose 02/07/2023 07:27:00 112 70-120 (mg /dL) Final Calcium 02/07/2023 07:27:00 9.6 8.4-10.2 ( mg/dL) Final Performing Location LABORATORY [facility] [place] - [address] [place] [address]
--- OUTSIDE RECORDS SUMMARY | 2023-03-09 14:19 | External Medical Summary ---
Author Name Unknown Address Unknown Organization K01:LABORATORY [facility] [place] - [address] [place] [address] Laboratory Report Ordering Provider Test Date Status SHERRY LOONEY 02/10/2023 07:04:17 Final Observation Date Value Abnormality Reference (Units ) Status WBC, Total 02/10/2023 07:04:17 5.11 4.00-10.80 (K/uL) Final RBC 02/10/2023 07:04:17 2.56 3.85-5.15 (M/uL) Final Hemoglobin 02/10/2023 07:04:17 8.1 Below low normal 12.0-15.3 (g/dL) Final HCT 02/10/2023 07:04:17 28.2 Below low normal 36.0-45.2 (%) Final MCV 02/10/2023 07:04:17 110.2 81.5-97.5 (fL) Final MCH 02/10/2023 07:04:17 31.6 27.0-34.0 (pg) Final MCHC 02/10/2023 07:04:17 28.7 32.0-36.0 (g/dL) Final RDW 02/10/2023 07:04:17 21.6 11.5-15.5 (%) Final Platelets 02/10/2023 07:04:17 116 Below low normal 140-400 (K/uL) Final MPV 02/10/2023 07:04:17 11.4 6.6-11.1 (fL) Final Nucleated erythrocytes/100 leukocytes [Ratio] in Blood by Automated count 02/10/2023 07:04:17 0 <=0 (/100 WBCs) Final Performing Location LABORATORY [facility] [place] - [address] [place] [address]
--- OUTSIDE RECORDS SUMMARY | 2023-03-09 14:19 | External Medical Summary ---
Author Name Unknown Address Unknown Organization K01:LABORATORY [facility] - [address] [place] [address] Laboratory Report Ordering Provider Test Date Status SHERRY LOONEY 02/09/2023 04:07:00 Final Observation Date Value Abnormality Reference (Units ) Status Magnesium 02/09/2023 04:07:00 2.4 1.5-2.6 (m g/dL) Final Performing Location LABORATORY [facility] - [address] [place] [address]
--- OUTSIDE RECORDS SUMMARY | 2023-03-09 14:19 | External Medical Summary ---
Author Name Unknown Address Unknown Organization K01:LABORATORY [facility] [place] - [address] [place] [address] Laboratory Report Ordering Provider Test Date Status STEPHON TREVIZO 02/09/2023 04:07:00 Final Observation Date Value Abnormality Reference (Units ) Status MYCODE SPECIMEN-SST 02/09/2023 04:07:00 Freezing of extracted DNA, whole blood and/or serum. Final Performing Location LABORATORY [facility] - [address] [place] [address]
--- OUTSIDE RECORDS SUMMARY | 2023-03-09 14:19 | External Medical Summary ---
Author Name Unknown Address Unknown Organization K01:[place] [facility] [place] [address] [facility] [place] [address] Laboratory Report Ordering Provider Test Date Status URIEL CHRISTINE 02/09/2023 14:15:00 Final Observation Date Value Abnormality Reference (Units ) Status Body temperature 02/09/2023 14:15:00 37.0 (C) Final pH of Venous blood 02/09/2023 14:15:00 7.289 Below low normal 7.320-7.430 (units) Final Carbon dioxide [Partial pressure] in Venous blood 02/09/2023 14:15:00 61.5 Above high normal 40.0-60.0 (mmHg) Final Oxygen [Partial pressure] in Venous blood 02/09/2023 14:15:00 29.0 25.0-50.0 (mmHg) Final Base excess, Capillary 02/09/2023 14:15:00 1.8 -2.0-2.0 (mmol/L) Final Hemoglobin [Mass/volume] in Blood by Oximetry 02/09/2023 14:15:00 8.9 Below low normal 12.0-15.3 (g/dL) Final Oxyhemoglobin, Venous (FO2HB) 02/09/2023 14:15:00 48.4 40.0-85.0 (% total Hgb) Final Carboxyhemoglobin 02/09/2023 14:15:00 2.0 Above high normal <=1.5 (% total Hgb) Final Smokers: 0-9.0 % Methemoglobin 02/09/2023 14:15:00 0.7 <= 1.5 (% total Hgb) Final Deoxyhemoglobin/Hemoglo bin.total in Venous blood 02/09/2023 14:15:00 48.9 (% total Hgb) Final Oxygen content in Venous blood 02/09/2023 14:15:00 6.1 Below low normal 7.0-18.0 (%vol) F inal Bicarbonate, Venous, POC (i-STAT) 02/09/2023 14:15:00 28.6 23.0-31.0 (mmol/L) Final Performing Location [place] [facility] [place] [facility] [address] [facility] [address]
--- OUTSIDE RECORDS SUMMARY | 2023-03-09 14:19 | External Medical Summary ---
Author Name Unknown Address Unknown Organization K01:[facility]ORY [facility] [place] [address] [place] [address] Laboratory Report Ordering Provider Test Date Status ZABRINA PATTERSON 02/09/2023 04:07:00 Final Observation Date Value Abnormality Reference (Units ) Status Lactic Acid 02/09/2023 04:07:00 1.5 0.4-2.0 (mmol/L) Final Performing Location LAB[facility] - [address] [place] [address]
--- OUTSIDE RECORDS SUMMARY | 2023-03-09 14:19 | External Medical Summary ---
Author Name Unknown Address Unknown Organization K01:[place] [facility] [place] [facility] [address] [place] [address] Laboratory Report Ordering Provider Test Date Status SHERRY LOONEY 02/08/2023 13:40:00 Final Observation Date Value Abnormality Reference (Units ) Status BUN 02/08/2023 13:40:00 17 6-20 (mg/dL) Final Creatinine 02/08/2023 13:40:00 3.8 Above high normal 0.5-1.0 (mg/dL) Final Glomerular filtration rate/1.73 sq M.predicted [Volume Rate/Area] in Serum, Plasma or Blood by Creatinine-based formula (CKD-EPI) 02/08/2023 13:40:00 13 Below low normal >=60 (mL/min) Final eGFR is calculated based on the CKD-EPI 2020 equation SODIUM 02/08/2023 13:40:00 138 135-146 (m mol/L) Final Potassium 02/08/2023 13:40:00 4.3 3.5-5.1 (m mol/L) Final Cl 02/08/2023 13:40:00 105 98-107 (mm ol/L) Final CO2 02/08/2023 13:40:00 24 22-32 (mmo l/L) Final Anion gap 02/08/2023 13:40:00 9 7-15 (mmol /L) Final Glucose 02/08/2023 13:40:00 108 70-120 (mg /dL) Final Calcium 02/08/2023 13:40:00 9.6 8.4-10.2 ( mg/dL) Final Performing Location [place] [facility] [place] [address] [place] [address]
--- OUTSIDE RECORDS SUMMARY | 2023-03-09 14:19 | External Medical Summary ---
Author Name Unknown Address Unknown Organization K01:LABORATORY [facility] [place] - [address] [place] [address] Laboratory Report Ordering Provider Test Date Status SHERRY LOONEY 02/06/2023 16:44:00 Final Observation Date Value Abnormality Reference (Units ) Status WBC, Total 02/06/2023 16:44:00 6.17 4.00-10.80 (K/uL) Final RBC 02/06/2023 16:44:00 2.79 3.85-5.15 (M/uL) Final Hemoglobin 02/06/2023 16:44:00 8.8 Below low normal 12.0-15.3 (g/dL) Final HCT 02/06/2023 16:44:00 30.5 Below low normal 36.0-45.2 (%) Final MCV 02/06/2023 16:44:00 109.3 81.5-97.5 (fL) Final MCH 02/06/2023 16:44:00 31.5 27.0-34.0 (pg) Final MCHC 02/06/2023 16:44:00 28.9 32.0-36.0 (g/dL) Final RDW 02/06/2023 16:44:00 20.9 11.5-15.5 (%) Final Platelets 02/06/2023 16:44:00 131 Below low normal 140-400 (K/uL) Final MPV 02/06/2023 16:44:00 11.6 6.6-11.1 (fL) Final Nucleated erythrocytes/100 leukocytes [Ratio] in Blood by Automated count 02/06/2023 16:44:00 1 Above high normal <=0 (/100 WBCs) Final Performing Location LABORATORY [facility] [place] - [address] [place] [address]
--- OUTSIDE RECORDS SUMMARY | 2023-03-09 14:19 | External Medical Summary ---
Author Name Unknown Address Unknown Organization K01:LABORATORY [facility] [place] - [facility] [address] [address] Laboratory Report Ordering Provider Test Date Status SHERRY LOONEY 02/08/2023 13:40:00 Final Observation Date Value Abnormality Reference (Units ) Status WBC, Total 02/08/2023 13:40:00 5.27 4.00-10.80 (K/uL) Final RBC 02/08/2023 13:40:00 2.61 3.85-5.15 (M/uL) Final Hemoglobin 02/08/2023 13:40:00 8.2 Below low normal 12.0-15.3 (g/dL) Final HCT 02/08/2023 13:40:00 29.5 Below low normal 36.0-45.2 (%) Final MCV 02/08/2023 13:40:00 113.0 81.5-97.5 (fL) Final MCH 02/08/2023 13:40:00 31.4 27.0-34.0 (pg) Final MCHC 02/08/2023 13:40:00 27.8 32.0-36.0 (g/dL) Final RDW 02/08/2023 13:40:00 21.3 11.5-15.5 (%) Final Platelets 02/08/2023 13:40:00 139 Below low normal 140-400 (K/uL) Final MPV 02/08/2023 13:40:00 11.7 6.6-11.1 (fL) Final Nucleated erythrocytes/100 leukocytes [Ratio] in Blood by Automated count 02/08/2023 13:40:00 1 Above high normal <=0 (/100 WBCs) Final Performing Location LABORATORY [facility] [place] - [address] [place] [address]
--- OUTSIDE RECORDS SUMMARY | 2023-03-09 14:19 | External Medical Summary ---
Author Name Unknown Address Unknown Organization K01:LABORATORY [facility] - [address] [place] [address] Laboratory Report Ordering Provider Test Date Status SHERRY LOONEY 02/09/2023 04:07:00 Final Observation Date Value Abnormality Reference (Units ) Status Phosphate 02/09/2023 04:07:00 3.9 2.5-4.8 (m g/dL) Final Performing Location LAB[facility]ORY [facility] - [address] [place] [address]
--- OUTSIDE RECORDS SUMMARY | 2023-03-09 14:19 | External Medical Summary ---
Author Name Unknown Address Unknown Organization K01:[place] [facility] [place] [facility] [address] [place] [address] Laboratory Report Ordering Provider Test Date Status ZABRINA PATTERSON 02/09/2023 04:07:00 Final Observation Date Value Abnormality Reference (Units ) Status WBC, Total 02/09/2023 04:07:00 5.40 4.00-10.80 (K/uL) Final RBC 02/09/2023 04:07:00 2.87 3.85-5.15 (M/uL) Final Hemoglobin 02/09/2023 04:07:00 9.2 Below low normal 12.0-15.3 (g/dL) Final HCT 02/09/2023 04:07:00 32.7 Below low normal 36.0-45.2 (%) Final MCV 02/09/2023 04:07:00 113.9 81.5-97.5 (fL) Final MCH 02/09/2023 04:07:00 32.1 27.0-34.0 (pg) Final MCHC 02/09/2023 04:07:00 28.1 32.0-36.0 (g/dL) Final RDW 02/09/2023 04:07:00 21.2 11.5-15.5 (%) Final Platelets 02/09/2023 04:07:00 120 Below low normal 140-400 (K/uL) Final MPV 02/09/2023 04:07:00 10.7 6.6-11.1 (fL) Final Nucleated erythrocytes/100 leukocytes [Ratio] in Blood by Automated count 02/09/2023 04:07:00 0 <=0 (/100 WBCs) Final Performing Location LABORATORY [facility] [place] [address] [place] [address]
--- OUTSIDE RECORDS SUMMARY | 2023-03-09 14:19 | External Medical Summary ---
Author Name Unknown Address Unknown Organization K01:LAB[facility]ATORY [facility] [place] - [address] [place] [address] Laboratory Report Ordering Provider Test Date Status STEPHON TREVIZO 02/09/2023 04:07:00 Final Observation Date Value Abnormality Reference (Units ) Status MYCODE SPECIMEN-SST 02/09/2023 04:07:00 Freezing of extracted DNA, whole blood and/or serum. Final Performing Location LABORATORY [facility] - [address] [place] [address]
--- OUTSIDE RECORDS SUMMARY | 2023-03-09 14:19 | External Medical Summary ---
Author Name Unknown Address Unknown Organization K01:LABORATORY [facility] - [address] [place] [address] Laboratory Report Ordering Provider Test Date Status SHERRY LOONEY 02/06/2023 12:17:00 Final Observation Date Value Abnormality Reference (Units ) Status Phosphate 02/06/2023 12:17:00 2.7 2.5-4.8 (m g/dL) Final Performing Location LAB[facility]ORY [facility] - [address] [place] [address]
--- OUTSIDE RECORDS SUMMARY | 2023-03-09 14:19 | External Medical Summary ---
Author Name Unknown Address Unknown Organization K01:[place] [facility] [place] [address] [place] [facility] [place] [address] Laboratory Report Ordering Provider Test Date Status ZABRINA PATTERSON 02/09/2023 04:07:00 Final Observation Date Value Abnormality Reference (Units) Status Body temperature 02/09/2023 04:07:00 37.0 (C) Final pH of Venous blood 02/09/2023 04:07:00 7.185 Below lower panic limits 7.320-7.430 (units) Final Carbon dioxide [Partial pressure] in Venous blood 02/09/2023 04:07:00 77.9 Above high normal 40.0-60.0 (mmHg) Final Oxygen [Partial pressure] in Venous blood 02/09/2023 04:07:00 24.8 Below low normal 25.0-50.0 (mmHg) Final Base excess, Capillary 02/09/2023 04:07:00 -0.6 -2.0-2.0 (mmol/L) Final Hemoglobin [Mass/volume] in Blood by Oximetry 02/09/2023 04:07:00 9.3 Below low normal 12.0-15.3 (g/dL) Final Oxyhemoglobin, Venous (FO2HB) 02/09/2023 04:07:00 31.8 Below low normal 40.0-85.0 (% total Hgb) Final Carboxyhemoglobin 02/09/2023 04:07:00 1.9 Above high normal <=1.5 (% total Hgb) Final Smokers: 0-9.0 % Methemoglobin 02/09/2023 04:07:00 0.7 <= 1.5 (% total Hgb) Final Deoxyhemoglobin/Hemoglo bin.total in Venous blood 02/09/2023 04:07:00 65.6 (% total Hgb) Final Oxygen content in Venous blood 02/09/2023 04:07:00 4.2 Below low normal 7.0-18.0 (%vol) F inal Bicarbonate, Venous, POC (i-STAT) 02/09/2023 04:07:00 28.3 23.0-31.0 (mmol/L) Final Performing Location [place] [facility] [place] [address] [facility] [address]
--- OUTSIDE RECORDS SUMMARY | 2023-03-09 14:19 | External Medical Summary ---
Author Name Unknown Address Unknown Organization K01:LAB[facility]ATORY [facility] - [address] [place] [address] Laboratory Report Ordering Provider Test Date Status SHERRY LOONEY 02/08/2023 13:40:00 Final Observation Date Value Abnormality Reference (Units ) Status Magnesium 02/08/2023 13:40:00 2.1 1.5-2.6 (m g/dL) Final Performing Location [facility]ORY [facility] - [address] [place] [address]
--- OUTSIDE RECORDS SUMMARY | 2023-03-09 14:19 | External Medical Summary ---
Author Name Unknown Address Unknown Organization K01:LABORATORY [facility] - [address] [place] [address] Laboratory Report Ordering Provider Test Date Status SHERRY LOONEY 02/08/2023 13:40:00 Final Observation Date Value Abnormality Reference (Units ) Status Phosphate 02/08/2023 13:40:00 3.2 2.5-4.8 (m g/dL) Final Performing Location [facility] - [address] [place] [address]
--- OUTSIDE RECORDS SUMMARY | 2023-03-09 14:19 | External Medical Summary ---
Author Name Unknown Address Unknown Organization K01:LABORATORY [facility] [place] - [address] [facility] [address] [place] [address] Laboratory Report Ordering Provider Test Date Status SHERRY LOONEY 02/07/2023 07:27:00 Final Observation Date Value Abnormality Reference (Units ) Status WBC, Total 02/07/2023 07:27:00 6.17 4.00-10.80 (K/uL) Final RBC 02/07/2023 07:27:00 2.74 3.85-5.15 (M/uL) Final Hemoglobin 02/07/2023 07:27:00 8.5 Below low normal 12.0-15.3 (g/dL) Final HCT 02/07/2023 07:27:00 30.4 Below low normal 36.0-45.2 (%) Final MCV 02/07/2023 07:27:00 110.9 81.5-97.5 (fL) Final MCH 02/07/2023 07:27:00 31.0 27.0-34.0 (pg) Final MCHC 02/07/2023 07:27:00 28.0 32.0-36.0 (g/dL) Final RDW 02/07/2023 07:27:00 21.1 11.5-15.5 (%) Final Platelets 02/07/2023 07:27:00 153 140-400 (K/uL) Final MPV 02/07/2023 07:27:00 11.2 6.6-11.1 (fL) Final Nucleated erythrocytes/100 leukocytes [Ratio] in Blood by Automated count 02/07/2023 07:27:00 1 Above high normal <=0 (/100 WBCs) Final Performing Location LABORATORY [facility] [place] - [address] [place] [address]
--- OUTSIDE RECORDS SUMMARY | 2023-03-09 14:19 | External Medical Summary ---
Author Name Unknown Address Unknown Organization K01:LABORATORY [facility] [place] - [address] [place] [address] Laboratory Report Ordering Provider Test Date Status SHERRY LOONEY 02/09/2023 04:07:00 Final Observation Date Value Abnormality Reference (Units ) Status BUN 02/09/2023 04:07:00 24 Above high normal 6-20 (mg/dL) Final Creatinine 02/09/2023 04:07:00 4.9 Above high normal 0.5-1.0 (mg/dL) Final Glomerular filtration rate/1.73 sq M.predicted [Volume Rate/Area] in Serum, Plasma or Blood by Creatinine-based formula (CKD-EPI) 02/09/2023 04:07:00 10 Below low normal >=60 (mL/min) Final eGFR is calculated based on the CKD-EPI 2020 equation SODIUM 02/09/2023 04:07:00 136 135-146 (m mol/L) Final Potassium 02/09/2023 04:07:00 4.8 3.5-5.1 (m mol/L) Final Cl 02/09/2023 04:07:00 102 98-107 (mm ol/L) Final CO2 02/09/2023 04:07:00 19 Below low normal 22- 32 (mmol/L) Final Anion gap 02/09/2023 04:07:00 15 7-15 (mmol /L) Final Glucose 02/09/2023 04:07:00 93 70-120 (mg /dL) Final Calcium 02/09/2023 04:07:00 9.7 8.4-10.2 ( mg/dL) Final Performing Location LABORATORY [facility] [place] - [address] [place] [address]
--- OUTSIDE RECORDS SUMMARY | 2023-03-09 14:19 | External Medical Summary ---
Author Name Unknown Address Unknown Organization K01:[place] [facility] [place] [address] [place] [address] Laboratory Report Ordering Provider Test Date Status STEPHON TREVIZO 02/09/2023 04:07:00 Final Observation Date Value Abnormality Reference (Units ) Status MYCODE SPECIMEN-LAV 02/09/2023 04:07:00 Freezing of extracted DNA, whole blood and/or serum. Final Performing Location [place] [facility] [place] [address] [place] [address]
--- OUTSIDE RECORDS SUMMARY | 2023-03-09 14:19 | External Medical Summary ---
Author Name Unknown Address Unknown Organization K01:LABORATORY [facility] - [address] [place] [address] Laboratory Report Ordering Provider Test Date Status SHERRY LOONEY 02/07/2023 07:27:00 Final Observation Date Value Abnormality Reference (Units ) Status Magnesium 02/07/2023 07:27:00 2.1 1.5-2.6 (m g/dL) Final Performing Location [facility] - [address] [place] [address]
--- OUTSIDE RECORDS SUMMARY | 2023-03-09 14:20 | External Medical Summary ---
Author Name Unknown Address Unknown Organization K01:LABORATORY [facility] - [address] [place] [address] Laboratory Report Ordering Provider Test Date Status SHERRY LOONEY 02/03/2023 06:41:59 Final Observation Date Value Abnormality Reference (Units ) Status Magnesium 02/03/2023 06:41:59 2.0 1.5-2.6 (m g/dL) Final Performing Location [facility] - [address] [place] [address]
--- OUTSIDE RECORDS SUMMARY | 2023-03-09 14:20 | External Medical Summary ---
Author Name Unknown Address Unknown Organization K01:LABORATORY [facility] [place] - [facility] [address] [facility] [address] [facility] [address] Laboratory Report Ordering Provider Test Date Status SHRERY LOONEY 02/04/2023 13:48:00 Final Observation Date Value Abnormality Reference (Units ) Status BUN 02/04/2023 13:48:00 21 Above high normal 6-20 (mg/dL) Final Creatinine 02/04/2023 13:48:00 3.3 Above high normal 0.5-1.0 (mg/dL) Final Glomerular filtration rate/1.73 sq M.predicted [Volume Rate/Area] in Serum, Plasma or Blood by Creatinine-based formula (CKD-EPI) 02/04/2023 13:48:00 16 Below low normal >=60 (mL/min) Final eGFR is calculated based on the CKD-EPI 2020 equation SODIUM 02/04/2023 13:48:00 136 135-146 (m mol/L) Final Potassium 02/04/2023 13:48:00 4.1 3.5-5.1 (m mol/L) Final Cl 02/04/2023 13:48:00 102 98-107 (mm ol/L) Final CO2 02/04/2023 13:48:00 23 22-32 (mmo l/L) Final Anion gap 02/04/2023 13:48:00 11 7-15 (mmol /L) Final Glucose 02/04/2023 13:48:00 132 Above high normal 70 -120 (mg/dL) Final Calcium 02/04/2023 13:48:00 9.5 8.4-10.2 ( mg/dL) Final Performing Location LABORATORY [facility] [place] - [address] [place] [address]
--- OUTSIDE RECORDS SUMMARY | 2023-03-09 14:20 | External Medical Summary ---
Author Name Unknown Address Unknown Organization K01:LABORATORY [facility] [place] - [address] [facility] [place] [address] Laboratory Report Ordering Provider Test Date Status SHERRY LOONEY 02/04/2023 13:48:00 Final Observation Date Value Abnormality Reference (Units ) Status WBC, Total 02/04/2023 13:48:00 6.37 4.00-10.80 (K/uL) Final RBC 02/04/2023 13:48:00 2.90 3.85-5.15 (M/uL) Final Hemoglobin 02/04/2023 13:48:00 9.0 Below low normal 12.0-15.3 (g/dL) Final HCT 02/04/2023 13:48:00 31.5 Below low normal 36.0-45.2 (%) Final MCV 02/04/2023 13:48:00 108.6 81.5-97.5 (fL) Final MCH 02/04/2023 13:48:00 31.0 27.0-34.0 (pg) Final MCHC 02/04/2023 13:48:00 28.6 32.0-36.0 (g/dL) Final RDW 02/04/2023 13:48:00 20.4 11.5-15.5 (%) Final Platelets 02/04/2023 13:48:00 126 Below low normal 140-400 (K/uL) Final MPV 02/04/2023 13:48:00 12.1 6.6-11.1 (fL) Final Nucleated erythrocytes/100 leukocytes [Ratio] in Blood by Automated count 02/04/2023 13:48:00 0 <=0 (/100 WBCs) Final Performing Location LABORATORY [facility] [place] - [address] [place] [address]
--- OUTSIDE RECORDS SUMMARY | 2023-03-09 14:20 | External Medical Summary ---
Author Name Unknown Address Unknown Organization K01:LABORATORY C - [address] [address] Laboratory Report Ordering Provider Test Date Status SHERRY LOONEY 02/04/2023 13:48:00 Final Observation Date Value Abnormality Reference (Units ) Status Phosphate 02/04/2023 13:48:00 2.7 2.5-4.8 (m g/dL) Final Performing Location LAB[facility]ORY [facility] - [address] [address]
--- OUTSIDE RECORDS SUMMARY | 2023-03-09 14:20 | External Medical Summary ---
Author Name Unknown Address Unknown Organization K01:LABORATORY [facility] - [address] [address] Laboratory Report Ordering Provider Test Date Status SHERRY LOONEY 02/04/2023 13:48:00 Final Observation Date Value Abnormality Reference (Units ) Status Magnesium 02/04/2023 13:48:00 2.0 1.5-2.6 (m g/dL) Final Performing Location LABORATORY [facility] - [address] [address]
--- OUTSIDE RECORDS SUMMARY | 2023-03-09 14:20 | External Medical Summary ---
Author Name Unknown Address Unknown Organization K01:LABORATORY [facility] - [address] [address] Laboratory Report Ordering Provider Test Date Status SHERRY LOONEY 02/06/2023 12:17:00 Final Observation Date Value Abnormality Reference (Units ) Status Magnesium 02/06/2023 12:17:00 2.3 1.5-2.6 (m g/dL) Final Performing Location LABORATORY [facility] - [address] [address]
--- OUTSIDE RECORDS SUMMARY | 2023-03-09 14:20 | External Medical Summary ---
Author Name Unknown Address Unknown Organization K01:LABORATORY [facility] - [address] [address] Laboratory Report Ordering Provider Test Date Status SHERRY LOONEY 02/03/2023 06:41:59 Final Observation Date Value Abnormality Reference (Units ) Status Phosphate 02/03/2023 06:41:59 3.2 2.5-4.8 (m g/dL) Final Performing Location LABORATORY [facility] - [address] [address]
--- OUTSIDE RECORDS SUMMARY | 2023-03-09 14:20 | External Medical Summary ---
Author Name Unknown Address Unknown Organization K01:[place] [place] [address] [place], [place] [address] [address] Laboratory Report Ordering Provider Test Date Status SHERRY LOONEY 02/03/2023 06:41:59 Final Observation Date Value Abnormality Reference (Units ) Status WBC, Total 02/03/2023 06:41:59 6.89 4.00-10.80 (K/uL) Final RBC 02/03/2023 06:41:59 2.76 3.85-5.15 (M/uL) Final Hemoglobin 02/03/2023 06:41:59 8.7 Below low normal 12.0-15.3 (g/dL) Final HCT 02/03/2023 06:41:59 30.2 Below low normal 36.0-45.2 (%) Final MCV 02/03/2023 06:41:59 109.4 81.5-97.5 (fL) Final MCH 02/03/2023 06:41:59 31.5 27.0-34.0 (pg) Final MCHC 02/03/2023 06:41:59 28.8 32.0-36.0 (g/dL) Final RDW 02/03/2023 06:41:59 20.8 11.5-15.5 (%) Final Platelets 02/03/2023 06:41:59 185 140-400 (K/uL) Final MPV 02/03/2023 06:41:59 11.3 6.6-11.1 (fL) Final Nucleated erythrocytes/100 leukocytes [Ratio] in Blood by Automated count 02/03/2023 06:41:59 0 <=0 (/100 WBCs) Final Performing Location LAB[place]ORY [facility] [place] [address] [place] [address]
--- OUTSIDE RECORDS SUMMARY | 2023-03-09 14:20 | External Medical Summary ---
Author Name Unknown Address Unknown Organization K01:LABORATORY [facility] - [address] [address] Laboratory Report Ordering Provider Test Date Status SHERRY LOONEY 02/05/2023 08:19:34 Final Observation Date Value Abnormality Reference (Units ) Status Magnesium 02/05/2023 08:19:34 2.0 1.5-2.6 (m g/dL) Final Performing Location LABORATORY [facility] - [address] [address]
--- OUTSIDE RECORDS SUMMARY | 2023-03-09 14:20 | External Medical Summary ---
Author Name Unknown Address Unknown Organization K01:LABORATORY [facility] [place] - [facility] [address] [facility] [address] [facility] [address] Laboratory Report Ordering Provider Test Date Status PERFECTO GO 02/02/2023 11:13:00 Final Observation Date Value Abnormality Reference (Units ) Status WBC, Total 02/02/2023 11:13:00 6.99 4.00-10.80 (K/uL) Final RBC 02/02/2023 11:13:00 2.85 3.85-5.15 (M/uL) Final Hemoglobin 02/02/2023 11:13:00 8.8 Below low normal 12.0-15.3 (g/dL) Final HCT 02/02/2023 11:13:00 31.0 Below low normal 36.0-45.2 (%) Final MCV 02/02/2023 11:13:00 108.8 81.5-97.5 (fL) Final MCH 02/02/2023 11:13:00 30.9 27.0-34.0 (pg) Final MCHC 02/02/2023 11:13:00 28.4 32.0-36.0 (g/dL) Final RDW 02/02/2023 11:13:00 20.9 11.5-15.5 (%) Final Platelets 02/02/2023 11:13:00 171 140-400 (K/uL) Final MPV 02/02/2023 11:13:00 11.4 6.6-11.1 (fL) Final Nucleated erythrocytes/100 leukocytes [Ratio] in Blood by Automated count 02/02/2023 11:13:00 0 <=0 (/100 WBCs) Final Performing Location LABORATORY [facility] [place] - [address] [place] [address]
--- OUTSIDE RECORDS SUMMARY | 2023-03-09 14:20 | External Medical Summary ---
Author Name Unknown Address Unknown Organization K01:LABORATORY [facility] [place] - [address] [place] [address] Laboratory Report Ordering Provider Test Date Status SHERRY LOONEY 02/03/2023 06:41:59 Final Observation Date Value Abnormality Reference (Units ) Status BUN 02/03/2023 06:41:59 24 Above high normal 6-20 (mg/dL) Final Creatinine 02/03/2023 06:41:59 3.5 Above high normal 0.5-1.0 (mg/dL) Final Glomerular filtration rate/1.73 sq M.predicted [Volume Rate/Area] in Serum, Plasma or Blood by Creatinine-based formula (CKD-EPI) 02/03/2023 06:41:59 15 Below low normal >=60 (mL/min) Final eGFR is calculated based on the CKD-EPI 2020 equation SODIUM 02/03/2023 06:41:59 138 135-146 (m mol/L) Final Potassium 02/03/2023 06:41:59 4.6 3.5-5.1 (m mol/L) Final Cl 02/03/2023 06:41:59 105 98-107 (mm ol/L) Final CO2 02/03/2023 06:41:59 24 22-32 (mmo l/L) Final Anion gap 02/03/2023 06:41:59 9 7-15 (mmol /L) Final Glucose 02/03/2023 06:41:59 100 70-120 (mg /dL) Final Calcium 02/03/2023 06:41:59 9.3 8.4-10.2 ( mg/dL) Final Performing Location LABORATORY [facility] [place] - [address] [place] [address]
--- OUTSIDE RECORDS SUMMARY | 2023-03-09 14:20 | External Medical Summary ---
Author Name Unknown Address Unknown Organization K01:LABORATORY [facility] [place] [address] [place] [address] Laboratory Report Ordering Provider Test Date Status SHERRY LOONEY 02/06/2023 12:17:00 Final Observation Date Value Abnormality Reference (Units ) Status BUN 02/06/2023 12:17:00 20 6-20 (mg/dL) Final Creatinine 02/06/2023 12:17:00 3.5 Above high normal 0.5-1.0 (mg/dL) Final Glomerular filtration rate/1.73 sq M.predicted [Volume Rate/Area] in Serum, Plasma or Blood by Creatinine-based formula (CKD-EPI) 02/06/2023 12:17:00 15 Below low normal >=60 (mL/min) Final eGFR is calculated based on the CKD-EPI 2020 equation SODIUM 02/06/2023 12:17:00 134 Below low normal 135 -146 (mmol/L) Final Potassium 02/06/2023 12:17:00 4.5 3.5-5.1 (m mol/L) Final Cl 02/06/2023 12:17:00 103 98-107 (mm ol/L) Final CO2 02/06/2023 12:17:00 21 Below low normal 22- 32 (mmol/L) Final Anion gap 02/06/2023 12:17:00 10 7-15 (mmol /L) Final Glucose 02/06/2023 12:17:00 109 70-120 (mg /dL) Final Calcium 02/06/2023 12:17:00 9.9 8.4-10.2 ( mg/dL) Final Performing Location LABORATORY [facility] [place] [address] [place] [address]
--- OUTSIDE RECORDS SUMMARY | 2023-03-09 14:20 | External Medical Summary ---
Author Name Unknown Address Unknown Organization K01:LABORATORY [facility] [place] - [address] [place], [place] [address] [address] Laboratory Report Ordering Provider Test Date Status SHERRY LOONEY 02/05/2023 08:19:34 Final Observation Date Value Abnormality Reference (Units ) Status WBC, Total 02/05/2023 08:19:34 7.37 4.00-10.80 (K/uL) Final RBC 02/05/2023 08:19:34 2.87 3.85-5.15 (M/uL) Final Hemoglobin 02/05/2023 08:19:34 9.0 Below low normal 12.0-15.3 (g/dL) Final HCT 02/05/2023 08:19:34 31.3 Below low normal 36.0-45.2 (%) Final MCV 02/05/2023 08:19:34 109.1 81.5-97.5 (fL) Final MCH 02/05/2023 08:19:34 31.4 27.0-34.0 (pg) Final MCHC 02/05/2023 08:19:34 28.8 32.0-36.0 (g/dL) Final RDW 02/05/2023 08:19:34 20.2 11.5-15.5 (%) Final Platelets 02/05/2023 08:19:34 195 140-400 (K/uL) Final MPV 02/05/2023 08:19:34 11.5 6.6-11.1 (fL) Final Nucleated erythrocytes/100 leukocytes [Ratio] in Blood by Automated count 02/05/2023 08:19:34 0 <=0 (/100 WBCs) Final Performing Location LABORATORY [facility] [place] - [address] [place], [place] [address] [address]
--- OUTSIDE RECORDS SUMMARY | 2023-03-09 14:20 | External Medical Summary ---
Author Name Unknown Address Unknown Organization K01:LABORATORY [facility] - [address] [address] Laboratory Report Ordering Provider Test Date Status SHERRY LOONEY 02/05/2023 08:19:34 Final Observation Date Value Abnormality Reference (Units ) Status Phosphate 02/05/2023 08:19:34 3.1 2.5-4.8 (m g/dL) Final Performing Location LABORATORY [facility] - [address] [address]
--- OUTSIDE RECORDS SUMMARY | 2023-03-09 14:21 | External Medical Summary ---
Author Name Unknown Address Unknown Organization K01:LAB[facility]ATORY [facility] - [address] [place] [address] Laboratory Report Ordering Provider Test Date Status STEWART GOON 02/02/2023 06:27:00 Final Observation Date Value Abnormality Reference (Units ) Status Magnesium 02/02/2023 06:27:00 2.7 Above high normal 1. 5-2.6 (mg/dL) Final Performing Location LAB[facility]ORY [facility] - [address] [place] [address]
--- OUTSIDE RECORDS SUMMARY | 2023-03-09 14:21 | External Medical Summary ---
Author Name Unknown Address Unknown Organization K01:[place] [facility] [place] [address] [address] Laboratory Report Ordering Provider Test Date Status CHARLENE CONTRERAS 01/30/2023 10:20:35 Final CRRT Labs: Check at initiati on of CRRT, One hour after CRRT and Every 6 hours
Labs to be Drawn Peripherally Observation Date Value Abnormality Reference (Units ) Status Phosphate 01/30/2023 10:20:35 3.1 2.5-4.8 (m g/dL) Final Performing Location [place] [place] [address] [address]
--- OUTSIDE RECORDS SUMMARY | 2023-03-09 14:21 | External Medical Summary ---
Author Name Unknown Address Unknown Organization K01:LABORATORY [facility] [place] - [address] [place] [address] Laboratory Report Ordering Provider Test Date Status CHARLENE CONTRERAS 01/30/2023 10:20:35 Final CRRT Labs: Check at initiati on of CRRT, One hour after CRRT and Every 6 hours
Labs to be Drawn Peripherally
Send in a separate tube. Observation Date Value Abnormality Reference (Units ) Status Calcium.ionized [Moles/volume] in Blood by Ion-selective membrane electrode (ISE) 01/30/2023 10:20:35 1.27 1.13-1.32 (mmol/L) Final Performing Location LABORATORY [facility] [place] - [address] [place] [address]
--- OUTSIDE RECORDS SUMMARY | 2023-03-09 14:21 | External Medical Summary ---
Author Name Unknown Address Unknown Organization K01:[facility]ORY [facility] - [address] [place] [address] Laboratory Report Ordering Provider Test Date Status ABBISTEWART LeonardON 02/01/2023 10:11:00 Final Observation Date Value Abnormality Reference (Units ) Status Phosphate 02/01/2023 10:11:00 3.6 2.5-4.8 (m g/dL) Final Performing Location LAB[facility] - [address] [place] [address]
--- OUTSIDE RECORDS SUMMARY | 2023-03-09 14:21 | External Medical Summary ---
Author Name Unknown Address Unknown Organization K01:LAB[facility]ATORY [facility] - [address] [place] [address] Laboratory Report Ordering Provider Test Date Status PERFECTO GO 02/02/2023 06:27:00 Final Observation Date Value Abnormality Reference (Units ) Status Phosphate 02/02/2023 06:27:00 3.1 2.5-4.8 (m g/dL) Final Performing Location LAB[facility]ORY [facility] - [address] [place] [address]
--- OUTSIDE RECORDS SUMMARY | 2023-03-09 14:21 | External Medical Summary ---
Author Name Unknown Address Unknown Organization K01:LABORATORY [facility] - [address] [address] Laboratory Report Ordering Provider Test Date Status PERFECTO GO 01/30/2023 04:11:09 Final Observation Date Value Abnormality Reference (Units ) Status Phosphate 01/30/2023 04:11:09 3.0 2.5-4.8 (m g/dL) Final Performing Location LAB[facility] - [address] [place] [address]
--- OUTSIDE RECORDS SUMMARY | 2023-03-09 14:21 | External Medical Summary ---
Author Name Unknown Address Unknown Organization K01:LABORATORY [facility] [place] - [facility] [address] Laboratory Report Ordering Provider Test Date Status PERFECTO GO 01/31/2023 03:59:54 Final Observation Date Value Abnormality Reference (Units ) Status WBC, Total 01/31/2023 03:59:54 5.38 4.00-10.80 (K/uL) Final RBC 01/31/2023 03:59:54 2.35 3.85-5.15 (M/uL) Final Hemoglobin 01/31/2023 03:59:54 7.2 Below low normal 12.0-15.3 (g/dL) Final HCT 01/31/2023 03:59:54 24.2 Below low normal 36.0-45.2 (%) Final MCV 01/31/2023 03:59:54 103.0 81.5-97.5 (fL) Final MCH 01/31/2023 03:59:54 30.6 27.0-34.0 (pg) Final MCHC 01/31/2023 03:59:54 29.8 32.0-36.0 (g/dL) Final RDW 01/31/2023 03:59:54 20.8 11.5-15.5 (%) Final Platelets 01/31/2023 03:59:54 116 Below low normal 140-400 (K/uL) Final MPV 01/31/2023 03:59:54 11.2 6.6-11.1 (fL) Final Nucleated erythrocytes/100 leukocytes [Ratio] in Blood by Automated count 01/31/2023 03:59:54 0 <=0 (/100 WBCs) Final Performing Location LABORATORY [facility] [place] - [facility] [address] [facility] [address]
--- OUTSIDE RECORDS SUMMARY | 2023-03-09 14:21 | External Medical Summary ---
Author Name Unknown Address Unknown Organization K01:LAB[facility]ATORY [facility] - [address] [place] [address] Laboratory Report Ordering Provider Test Date Status PERFECTO GO 01/31/2023 03:59:54 Final Observation Date Value Abnormality Reference (Units ) Status Phosphate 01/31/2023 03:59:54 3.6 2.5-4.8 (m g/dL) Final Performing Location LAB[facility]ORY [facility] - [address] [place] [address]
--- OUTSIDE RECORDS SUMMARY | 2023-03-09 14:21 | External Medical Summary ---
Author Name Unknown Address Unknown Organization K01:LABORATORY [facility] [place] - [address] [address] Laboratory Report Ordering Provider Test Date Status CHARLENE CONTRERAS 01/30/2023 10:20:35 Final CRRT Labs: Check at initiati on of CRRT, One hour after CRRT and Every 6 hours
Labs to be Drawn Peripherally Observation Date Value Abnormality Reference (Units ) Status Magnesium 01/30/2023 10:20:35 2.5 1.5-2.6 (m g/dL) Final Performing Location LABORATORY [facility] [place] - [address] [address]
--- OUTSIDE RECORDS SUMMARY | 2023-03-09 14:21 | External Medical Summary ---
Author Name Unknown Address Unknown Organization K01:LABORATORY [facility] [place] - [address] [facility] [address] [place] [address] Laboratory Report Ordering Provider Test Date Status CHARLENE CONTRERAS 01/30/2023 10:20:35 Final CRRT Labs: Check at initiati on of CRRT, One hour after CRRT and Every 6 hours
Labs to be Drawn Peripherally Observation Date Value Abnormality Reference (Units ) Status BUN 01/30/2023 10:20:35 7 6-20 (mg/dL) Final Creatinine 01/30/2023 10:20:35 1.0 0.5-1.0 (mg/dL) Final Glomerular filtration rate/1.73 sq M.predicted [Volume Rate/Area] in Serum, Plasma or Blood by Creatinine-based formula (CKD-EPI) 01/30/2023 10:20:35 69 >=60 (mL/min) Final eGFR is calculated based on the CKD-EPI 2020 equation SODIUM 01/30/2023 10:20:35 139 135-146 (m mol/L) Final Potassium 01/30/2023 10:20:35 4.4 3.5-5.1 (m mol/L) Final Cl 01/30/2023 10:20:35 106 98-107 (mm ol/L) Final CO2 01/30/2023 10:20:35 22 22-32 (mmo l/L) Final Anion gap 01/30/2023 10:20:35 11 7-15 (mmol /L) Final Glucose 01/30/2023 10:20:35 77 70-120 (mg /dL) Final Calcium 01/30/2023 10:20:35 9.0 8.4-10.2 ( mg/dL) Final Performing Location LABORATORY [facility] [place] [place] - [facility] [address] [place] [address]
--- OUTSIDE RECORDS SUMMARY | 2023-03-09 14:21 | External Medical Summary ---
Author Name Unknown Address Unknown Organization K01:LAB[facility]ORY [facility] - [address] [place] [address] Laboratory Report Ordering Provider Test Date Status ABBISTEWARTPERFECTO 02/01/2023 10:11:00 Final Observation Date Value Abnormality Reference (Units ) Status Magnesium 02/01/2023 10:11:00 2.3 1.5-2.6 (m g/dL) Final Performing Location [facility] - [address] [place] [address]
--- OUTSIDE RECORDS SUMMARY | 2023-03-09 14:21 | External Medical Summary ---
Author Name Unknown Address Unknown Organization K01:LABORATORY [facility] [place] - [facility] [address] [place] [address] Laboratory Report Ordering Provider Test Date Status KHOADARIAN 01/30/2023 10:20:35 Final While on heparin for CRRT Observation Date Value Abnormality Reference (Units ) Status Heparin, unfractionated level 01/30/2023 10:20:35 <0.10 <0.10 (IU/mL) Final Unfractionated therapeutic r anges for Anti Xa activity:
For Cardiac/Neurologic treatment: 0.3 to 0.6 IU/mL.
For treatment of DVT or Pulmonary Embolism: 0.3 to 0.7 IU/mL. Performing Location LABORATORY [facility] [place] - [facility] [address] [place] [address]
--- OUTSIDE RECORDS SUMMARY | 2023-03-09 14:21 | External Medical Summary ---
Author Name Unknown Address Unknown Organization K01:LABORATORY [facility] [place] - [facility] [address] [facility] [address] [facility] [address] Laboratory Report Ordering Provider Test Date Status PERFECTO GO 02/01/2023 10:11:00 Final Observation Date Value Abnormality Reference (Units ) Status WBC, Total 02/01/2023 10:11:00 8.71 4.00-10.80 (K/uL) Final RBC 02/01/2023 10:11:00 2.61 3.85-5.15 (M/uL) Final Hemoglobin 02/01/2023 10:11:00 8.3 Below low normal 12.0-15.3 (g/dL) Final HCT 02/01/2023 10:11:00 28.1 Below low normal 36.0-45.2 (%) Final MCV 02/01/2023 10:11:00 107.7 81.5-97.5 (fL) Final MCH 02/01/2023 10:11:00 31.8 27.0-34.0 (pg) Final MCHC 02/01/2023 10:11:00 29.5 32.0-36.0 (g/dL) Final RDW 02/01/2023 10:11:00 20.6 11.5-15.5 (%) Final Platelets 02/01/2023 10:11:00 176 140-400 (K/uL) Final MPV 02/01/2023 10:11:00 11.3 6.6-11.1 (fL) Final Nucleated erythrocytes/100 leukocytes [Ratio] in Blood by Automated count 02/01/2023 10:11:00 0 <=0 (/100 WBCs) Final Performing Location LABORATORY [facility] [place] - [address] [place] [address]
--- OUTSIDE RECORDS SUMMARY | 2023-03-09 14:21 | External Medical Summary ---
Author Name Unknown Address Unknown Organization K01:[facility] - [address] [place] [address] Laboratory Report Ordering Provider Test Date Status PERFECTO GO 01/31/2023 03:59:54 Final Observation Date Value Abnormality Reference (Units ) Status Magnesium 01/31/2023 03:59:54 2.5 1.5-2.6 (m g/dL) Final Performing Location [facility] - [address] [place] [address]
--- OUTSIDE RECORDS SUMMARY | 2023-03-09 14:21 | External Medical Summary ---
Author Name Unknown Address Unknown Organization K01:LABORATORY [facility] [place] - [address] [place] [address] Laboratory Report Ordering Provider Test Date Status PERFECTO GO 02/02/2023 06:27:00 Final Observation Date Value Abnormality Reference (Units ) Status BUN 02/02/2023 06:27:00 15 6-20 (mg/dL) Final Creatinine 02/02/2023 06:27:00 2.3 Above high normal 0.5-1.0 (mg/dL) Final Glomerular filtration rate/1.73 sq M.predicted [Volume Rate/Area] in Serum, Plasma or Blood by Creatinine-based formula (CKD-EPI) 02/02/2023 06:27:00 24 Below low normal >=60 (mL/min) Final eGFR is calculated based on the CKD-EPI 2020 equation SODIUM 02/02/2023 06:27:00 136 135-146 (m mol/L) Final Potassium 02/02/2023 06:27:00 4.6 3.5-5.1 (m mol/L) Final Cl 02/02/2023 06:27:00 107 98-107 (mm ol/L) Final CO2 02/02/2023 06:27:00 19 Below low normal 22- 32 (mmol/L) Final Anion gap 02/02/2023 06:27:00 10 7-15 (mmol /L) Final Glucose 02/02/2023 06:27:00 68 Below low normal 70- 120 (mg/dL) Final Calcium 02/02/2023 06:27:00 9.2 8.4-10.2 ( mg/dL) Final Performing Location LABORATORY [facility] [place] - [address] [place] [address]
--- OUTSIDE RECORDS SUMMARY | 2023-03-09 14:22 | External Medical Summary ---
Author Name Unknown Address Unknown Organization K01:[place] [facility] [place] [facility] [place] [address] Laboratory Report Ordering Provider Test Date Status CHARLENE CONTRERAS 01/29/2023 03:25:35 Final CRRT Labs: check once daily if not done already
Labs to be Drawn Peripherally Observation Date Value Abnormality Reference (Units ) Status Albumin 01/29/2023 03:25:35 3.2 Below low normal 3.8-5.0 (g/dL) Final AST (Aspartate aminotransferase) 01/29/2023 03:25:35 11 10-35 (U/L) Final Alk Phos 01/29/2023 03:25:35 352 Above high normal 35-130 (U/L) Final ALT (Alanine aminotransferase) 01/29/2023 03:25:35 10 10-35 (U/L) Final Bilirubin, Total 01/29/2023 03:25:35 0.2 <=1.2 (mg/dL) Final Bilirubin, Direct 01/29/2023 03:25:35 <0.2 0.0-0.3 (mg/dL) Final Protein 01/29/2023 03:25:35 5.6 Below low normal 6.0-8.3 (g/dL) Final [place] [facility] [place] [facility] [place] [address]
--- OUTSIDE RECORDS SUMMARY | 2023-03-09 14:22 | External Medical Summary ---
Author Name Unknown Address Unknown Organization K01:[facility] [place] [address] [place] [address] Laboratory Report Ordering Provider Test Date Status PRIYA MCDANIELS 01/30/2023 04:11:09 Final Trough level is to be drawn prior to administration of the next dose. Ensure vancomycin is not infusing prior to drawing level. Observation Date Value Abnormality Reference (Units ) Status Vancomycin, trough 01/30/2023 04:11:09 25.0 Above high normal 10.0-20.0 (ug/mL) Final Performing Location [facility] [place] [address] [place] [address]
--- OUTSIDE RECORDS SUMMARY | 2023-03-09 14:22 | External Medical Summary ---
Author Name Unknown Address Unknown Organization K01:[facility] - [address] [place] [address] Laboratory Report Ordering Provider Test Date Status PERFECTO GO 01/29/2023 03:25:35 Final Observation Date Value Abnormality Reference (Units ) Status Magnesium 01/29/2023 03:25:35 2.4 1.5-2.6 (m g/dL) Final Performing Location [facility] - [address] [place] [address]
--- OUTSIDE RECORDS SUMMARY | 2023-03-09 14:22 | External Medical Summary ---
Author Name Unknown Address Unknown Organization K01:[place] [place] [facility] [address] [place] [address] Laboratory Report Ordering Provider Test Date Status JUAN ANDINO 01/29/2023 10:21:29 Final While on heparin for CRRT Observation Date Value Abnormality Reference (Units ) Status Heparin, unfractionated level 01/29/2023 10:21:29 0.16 Above high normal <0.10 (IU/mL) Final Unfractionated therapeutic r anges for Anti Xa activity:
For Cardiac/Neurologic treatment: 0.3 to 0.6 IU/mL.
For treatment of DVT or Pulmonary Embolism: 0.3 to 0.7 IU/mL. Performing Location [facility] [place] [facility] [address] [place] [address]
--- OUTSIDE RECORDS SUMMARY | 2023-03-09 14:22 | External Medical Summary ---
Author Name Unknown Address Unknown Organization K01:[facility]ATORY [facility] [place] [address] [place] [address] Laboratory Report Ordering Provider Test Date Status CHARLENE CONTRERAS 01/29/2023 10:21:29 Final CRRT Labs: Check at initiati on of CRRT, One hour after CRRT and Every 6 hours
Labs to be Drawn Peripherally Observation Date Value Abnormality Reference (Units ) Status Magnesium 01/29/2023 10:21:29 2.5 1.5-2.6 (m g/dL) Final Performing Location LABORATORY [facility] [place] [address] [place] [address]
--- OUTSIDE RECORDS SUMMARY | 2023-03-09 14:22 | External Medical Summary ---
Author Name Unknown Address Unknown Organization K01:[facility] [place] [address] [place] [address] Laboratory Report Ordering Provider Test Date Status CHARLENE CONTRERAS 01/29/2023 10:21:29 Final CRRT Labs: Check at initiati on of CRRT, One hour after CRRT and Every 6 hours
Labs to be Drawn Peripherally
Send in a separate tube. Observation Date Value Abnormality Reference (Units ) Status Calcium.ionized [Moles/volume] in Blood by Ion-selective membrane electrode (ISE) 01/29/2023 10:21:29 1.27 1.13-1.32 (mmol/L) Final Performing Location [facility] [place] [address] [place] [address]
--- OUTSIDE RECORDS SUMMARY | 2023-03-09 14:22 | External Medical Summary ---
Author Name Unknown Address Unknown Organization K01:[place] [place] - [facility] [place][note 2] [address] [place] [address] Laboratory Report Ordering Provider Test Date Status PERFECTO GO 01/29/2023 03:25:35 Final Observation Date Value Abnormality Reference (Units ) Status BUN 01/29/2023 03:25:35 7 6-20 (mg/dL) Final Creatinine 01/29/2023 03:25:35 1.1 Above high normal 0.5-1.0 (mg/dL) Final Glomerular filtration rate/1.73 sq M.predicted [Volume Rate/Area] in Serum, Plasma or Blood by Creatinine-based formula (CKD-EPI) 01/29/2023 03:25:35 58 Below low normal >=60 (mL/min) Final eGFR is calculated based on the CKD-EPI 2020 equation SODIUM 01/29/2023 03:25:35 138 135-146 (m mol/L) Final Potassium 01/29/2023 03:25:35 4.1 3.5-5.1 (m mol/L) Final Cl 01/29/2023 03:25:35 104 98-107 (mm ol/L) Final CO2 01/29/2023 03:25:35 22 22-32 (mmo l/L) Final Anion gap 01/29/2023 03:25:35 12 7-15 (mmol /L) Final Glucose 01/29/2023 03:25:35 100 70-120 (mg /dL) Final Calcium 01/29/2023 03:25:35 8.9 8.4-10.2 ( mg/dL) Final Performing Location LABORATORY [facility] [place] - [facility] [place][note 2] [address] [place] [address]
--- OUTSIDE RECORDS SUMMARY | 2023-03-09 14:22 | External Medical Summary ---
Author Name Unknown Address Unknown Organization K01:[place] [facility] [place] [facility] [address] [place] [address] Laboratory Report Ordering Provider Test Date Status CHARLENE CONTRERAS 01/29/2023 16:07:56 Final CRRT Labs: Check at initiati on of CRRT, One hour after CRRT and Every 6 hours
Labs to be Drawn Peripherally Observation Date Value Abnormality Reference (Units ) Status BUN 01/29/2023 16:07:56 7 6-20 (mg/dL) Final Creatinine 01/29/2023 16:07:56 1.0 0.5-1.0 (mg/dL) Final Glomerular filtration rate/1.73 sq M.predicted [Volume Rate/Area] in Serum, Plasma or Blood by Creatinine-based formula (CKD-EPI) 01/29/2023 16:07:56 63 >=60 (mL/min) Final eGFR is calculated based on the CKD-EPI 2020 equation SODIUM 01/29/2023 16:07:56 137 135-146 (m mol/L) Final Potassium 01/29/2023 16:07:56 4.4 3.5-5.1 (m mol/L) Final Cl 01/29/2023 16:07:56 104 98-107 (mm ol/L) Final CO2 01/29/2023 16:07:56 23 22-32 (mmo l/L) Final Anion gap 01/29/2023 16:07:56 10 7-15 (mmol /L) Final Glucose 01/29/2023 16:07:56 90 70-120 (mg /dL) Final Calcium 01/29/2023 16:07:56 9.1 8.4-10.2 ( mg/dL) Final Performing Location [facility] [facility] [place] [address] [place] [address]
--- OUTSIDE RECORDS SUMMARY | 2023-03-09 14:22 | External Medical Summary ---
Author Name Unknown Address Unknown Organization K01:[facility]ORY [facility] [place] - [address] [place] [address] Laboratory Report Ordering Provider Test Date Status CHARLENE CONTRERAS 01/29/2023 16:07:56 Final CRRT Labs: Check at initiati on of CRRT, One hour after CRRT and Every 6 hours
Labs to be Drawn Peripherally
Send in a separate tube. Observation Date Value Abnormality Reference (Units ) Status Calcium.ionized [Moles/volume] in Blood by Ion-selective membrane electrode (ISE) 01/29/2023 16:07:56 1.30 1.13-1.32 (mmol/L) Final Performing Location LAB[facility]ATORY [facility] [place] - [address] [place] [address]
--- OUTSIDE RECORDS SUMMARY | 2023-03-09 14:22 | External Medical Summary ---
Author Name Unknown Address Unknown Organization K01:[place] [facility] [place] [facility] [address] [place] [address] Laboratory Report Ordering Provider Test Date Status CHARLENE CONTRERAS 01/29/2023 10:21:29 Final CRRT Labs: Check at initiati on of CRRT, One hour after CRRT and Every 6 hours
Labs to be Drawn Peripherally Observation Date Value Abnormality Reference (Units ) Status BUN 01/29/2023 10:21:29 7 6-20 (mg/dL) Final Creatinine 01/29/2023 10:21:29 1.0 0.5-1.0 (mg/dL) Final Glomerular filtration rate/1.73 sq M.predicted [Volume Rate/Area] in Serum, Plasma or Blood by Creatinine-based formula (CKD-EPI) 01/29/2023 10:21:29 62 >=60 (mL/min) Final eGFR is calculated based on the CKD-EPI 2020 equation SODIUM 01/29/2023 10:21:29 136 135-146 (m mol/L) Final Potassium 01/29/2023 10:21:29 4.4 3.5-5.1 (m mol/L) Final Cl 01/29/2023 10:21:29 103 98-107 (mm ol/L) Final CO2 01/29/2023 10:21:29 24 22-32 (mmo l/L) Final Anion gap 01/29/2023 10:21:29 9 7-15 (mmol /L) Final Glucose 01/29/2023 10:21:29 92 70-120 (mg /dL) Final Calcium 01/29/2023 10:21:29 8.9 8.4-10.2 ( mg/dL) Final Performing Location LAB[facility]ATORY [facility] [place] - [facility] [address] [place] [address]
--- OUTSIDE RECORDS SUMMARY | 2023-03-09 14:22 | External Medical Summary ---
Author Name Unknown Address Unknown Organization K01:LABORATORY [facility] [place] [facility] - [address] [place] [address] Laboratory Report Ordering Provider Test Date Status YEE OROZCO 01/28/2023 22:53:52 Final Observation Date Value Abnormality Reference (Units ) Status ABO 01/28/2023 22:53:52 O Final RH 01/28/2023 22:53:52 Positive Final RED BLOOD CELL ANTIBODY SCREEN 01/28/2023 22:53:52 Negative Final SPECIMEN EXPIRATION DATE 01/28/2023 22:53:52 01/31/2023 23:59 Final Performing Location [facility]AT[facility] [place] [facility] - [address] [place] [address]
--- OUTSIDE RECORDS SUMMARY | 2023-03-09 14:22 | External Medical Summary ---
Author Name Unknown Address Unknown Organization K01:LAB[facility]ATORY [facility] [place] - [facility] [address] Laboratory Report Ordering Provider Test Date Status PERFECTO GO 01/30/2023 04:11:09 Final Observation Date Value Abnormality Reference (Units ) Status WBC, Total 01/30/2023 04:11:09 5.45 4.00-10.80 (K/uL) Final RBC 01/30/2023 04:11:09 2.36 3.85-5.15 (M/uL) Final Hemoglobin 01/30/2023 04:11:09 7.2 Below low normal 12.0-15.3 (g/dL) Final HCT 01/30/2023 04:11:09 24.4 Below low normal 36.0-45.2 (%) Final MCV 01/30/2023 04:11:09 103.4 81.5-97.5 (fL) Final MCH 01/30/2023 04:11:09 30.5 27.0-34.0 (pg) Final MCHC 01/30/2023 04:11:09 29.5 32.0-36.0 (g/dL) Final RDW 01/30/2023 04:11:09 21.0 11.5-15.5 (%) Final Platelets 01/30/2023 04:11:09 97 Below low normal 140-400 (K/uL) Final MPV 01/30/2023 04:11:09 11.7 6.6-11.1 (fL) Final Nucleated erythrocytes/100 leukocytes [Ratio] in Blood by Automated count 01/30/2023 04:11:09 0 <=0 (/100 WBCs) Final Performing Location LABORATORY [facility] [place] - [facility] [address] [facility] [address]
--- OUTSIDE RECORDS SUMMARY | 2023-03-09 14:22 | External Medical Summary ---
Author Name Unknown Address Unknown Organization K01:[place] [facility] [place] [facility] [address] [facility] [address] Laboratory Report Ordering Provider Test Date Status PERFECTO GO 01/29/2023 03:25:35 Final Observation Date Value Abnormality Reference (Units ) Status WBC, Total 01/29/2023 03:25:35 7.73 4.00-10.80 (K/uL) Final RBC 01/29/2023 03:25:35 2.51 3.85-5.15 (M/uL) Final Hemoglobin 01/29/2023 03:25:35 7.6 Below low normal 12.0-15.3 (g/dL) Final HCT 01/29/2023 03:25:35 25.3 Below low normal 36.0-45.2 (%) Final MCV 01/29/2023 03:25:35 100.8 81.5-97.5 (fL) Final MCH 01/29/2023 03:25:35 30.3 27.0-34.0 (pg) Final MCHC 01/29/2023 03:25:35 30.0 32.0-36.0 (g/dL) Final RDW 01/29/2023 03:25:35 20.8 11.5-15.5 (%) Final Platelets 01/29/2023 03:25:35 97 Below low normal 140-400 (K/uL) Final MPV 01/29/2023 03:25:35 10.9 6.6-11.1 (fL) Final Nucleated erythrocytes/100 leukocytes [Ratio] in Blood by Automated count 01/29/2023 03:25:35 0 <=0 (/100 WBCs) Final Performing Location [facility] [place] [facility] [address] [facility] [address] [address] [facility] [address]
--- OUTSIDE RECORDS SUMMARY | 2023-03-09 14:22 | External Medical Summary ---
Author Name Unknown Address Unknown Organization K01:[place] [facility] [place] [facility] [address] [place] [address] Laboratory Report Ordering Provider Test Date Status CHARLENE CONTRERAS 01/29/2023 22:07:42 Final CRRT Labs: Check at initiati on of CRRT, One hour after CRRT and Every 6 hours
Labs to be Drawn Peripherally Observation Date Value Abnormality Reference (Units ) Status BUN 01/29/2023 22:07:42 7 6-20 (mg/dL) Final Creatinine 01/29/2023 22:07:42 1.0 0.5-1.0 (mg/dL) Final Glomerular filtration rate/1.73 sq M.predicted [Volume Rate/Area] in Serum, Plasma or Blood by Creatinine-based formula (CKD-EPI) 01/29/2023 22:07:42 68 >=60 (mL/min) Final eGFR is calculated based on the CKD-EPI 2020 equation SODIUM 01/29/2023 22:07:42 138 135-146 (m mol/L) Final Potassium 01/29/2023 22:07:42 4.1 3.5-5.1 (m mol/L) Final Cl 01/29/2023 22:07:42 106 98-107 (mm ol/L) Final CO2 01/29/2023 22:07:42 22 22-32 (mmo l/L) Final Anion gap 01/29/2023 22:07:42 10 7-15 (mmol /L) Final Glucose 01/29/2023 22:07:42 81 70-120 (mg /dL) Final Calcium 01/29/2023 22:07:42 8.6 8.4-10.2 ( mg/dL) Final Performing Location [place] [facility] [place] [address] [place] [address]
--- OUTSIDE RECORDS SUMMARY | 2023-03-09 14:22 | External Medical Summary ---
Author Name Unknown Address Unknown Organization K01:[facility] [place] [facility] [place] [address] [place] [address] Laboratory Report Ordering Provider Test Date Status JUAN ANDINO 01/29/2023 16:07:56 Final While on heparin for CRRT Observation Date Value Abnormality Reference (Units ) Status Heparin, unfractionated level 01/29/2023 16:07:56 0.22 Above high normal <0.10 (IU/mL) Final Unfractionated therapeutic r anges for Anti Xa activity:
For Cardiac/Neurologic treatment: 0.3 to 0.6 IU/mL.
For treatment of DVT or Pulmonary Embolism: 0.3 to 0.7 IU/mL. Performing Location [facility] [place] [address] [place] [address]
--- OUTSIDE RECORDS SUMMARY | 2023-03-09 14:22 | External Medical Summary ---
Author Name Unknown Address Unknown Organization K01:LABORATORY [facility] [place] [address] [place] [address] Laboratory Report Ordering Provider Test Date Status CHARLENE CONTRERAS 01/29/2023 22:07:42 Final CRRT Labs: Check at initiati on of CRRT, One hour after CRRT and Every 6 hours
Labs to be Drawn Peripherally Observation Date Value Abnormality Reference (Units ) Status Magnesium 01/29/2023 22:07:42 2.4 1.5-2.6 (m g/dL) Final Performing Location LABORATORY [facility] [place] - [address] [place] [address]
--- OUTSIDE RECORDS SUMMARY | 2023-03-09 14:22 | External Medical Summary ---
Author Name Unknown Address Unknown Organization K01:[place] [facility] [place] [facility] [place] [address] Laboratory Report Ordering Provider Test Date Status CHARLENE CONTRERAS 01/30/2023 04:11:09 Final CRRT Labs: check once daily if not done already
Labs to be Drawn Peripherally Observation Date Value Abnormality Reference (Units ) Status Albumin 01/30/2023 04:11:09 3.1 Below low normal 3.8-5.0 (g/dL) Final AST (Aspartate aminotransferase) 01/30/2023 04:11:09 15 10-35 (U/L) Final Alk Phos 01/30/2023 04:11:09 328 Above high normal 35-130 (U/L) Final ALT (Alanine aminotransferase) 01/30/2023 04:11:09 17 10-35 (U/L) Final Bilirubin, Total 01/30/2023 04:11:09 0.2 <=1.2 (mg/dL) Final Bilirubin, Direct 01/30/2023 04:11:09 <0.2 0.0-0.3 (mg/dL) Final Protein 01/30/2023 04:11:09 5.8 Below low normal 6.0-8.3 (g/dL) Final Performing Location [facility] [place] [facility] [place] [address]
--- OUTSIDE RECORDS SUMMARY | 2023-03-09 14:22 | External Medical Summary ---
Author Name Unknown Address Unknown Organization K01:[place] [facility] [place] [address] [place] [address] Laboratory Report Ordering Provider Test Date Status CHARLENE CONTRERAS 01/29/2023 03:25:35 Final CRRT Labs: Check at initiati on of CRRT, One hour after CRRT and Every 6 hours
Labs to be Drawn Peripherally
Send in a separate tube. Observation Date Value Abnormality Reference (Units ) Status Calcium.ionized [Moles/volume] in Blood by Ion-selective membrane electrode (ISE) 01/29/2023 03:25:35 1.29 1.13-1.32 (mmol/L) Final Performing Location [facility] [place] [address] [place] [address]
--- OUTSIDE RECORDS SUMMARY | 2023-03-09 14:22 | External Medical Summary ---
Author Name Unknown Address Unknown Organization K01:[place] [facility] [place] [address] [place] [address] Laboratory Report Ordering Provider Test Date Status CHARLENE CONTRERAS 01/30/2023 04:11:09 Final CRRT Labs: Check at initiati on of CRRT, One hour after CRRT and Every 6 hours
Labs to be Drawn Peripherally
Send in a separate tube. Observation Date Value Abnormality Reference (Units ) Status Calcium.ionized [Moles/volume] in Blood by Ion-selective membrane electrode (ISE) 01/30/2023 04:11:09 1.32 1.13-1.32 (mmol/L) Final Performing Location [place] [facility] [place] [address] [place] [address]
--- OUTSIDE RECORDS SUMMARY | 2023-03-09 14:22 | External Medical Summary ---
Author Name Unknown Address Unknown Organization K01:[place] [facility] [place] [address] [place] [address] Laboratory Report Ordering Provider Test Date Status CHARLENE CONTRERAS 01/29/2023 16:07:56 Final CRRT Labs: Check at initiati on of CRRT, One hour after CRRT and Every 6 hours
Labs to be Drawn Peripherally Observation Date Value Abnormality Reference (Units ) Status Magnesium 01/29/2023 16:07:56 2.4 1.5-2.6 (m g/dL) Final Performing Location LAB[facility] [place] [address] [place] [address]
--- OUTSIDE RECORDS SUMMARY | 2023-03-09 14:22 | External Medical Summary ---
Author Name Unknown Address Unknown Organization K01:LABORATORY [facility] [place] [address] [place] [address] Laboratory Report Ordering Provider Test Date Status CHARLENE CONTRERAS 01/29/2023 22:07:42 Final CRRT Labs: Check at initiati on of CRRT, One hour after CRRT and Every 6 hours
Labs to be Drawn Peripherally
Send in a separate tube. Observation Date Value Abnormality Reference (Units ) Status Calcium.ionized [Moles/volume] in Blood by Ion-selective membrane electrode (ISE) 01/29/2023 22:07:42 1.29 1.13-1.32 (mmol/L) Final Performing Location LABOR[facility]ORY [facility] [place] [address] [place] [address]
--- OUTSIDE RECORDS SUMMARY | 2023-03-09 14:22 | External Medical Summary ---
Author Name Unknown Address Unknown Organization K01:[place] [facility] [place] [facility] [address] [place] [address] Laboratory Report Ordering Provider Test Date Status JUAN ANDINO 01/29/2023 22:07:42 Final While on heparin for CRRT Observation Date Value Abnormality Reference (Units ) Status Heparin, unfractionated level 01/29/2023 22:07:42 0.14 Above high normal <0.10 (IU/mL) Final Unfractionated therapeutic r anges for Anti Xa activity:
For Cardiac/Neurologic treatment: 0.3 to 0.6 IU/mL.
For treatment of DVT or Pulmonary Embolism: 0.3 to 0.7 IU/mL. Performing Location [place] [facility] [place] [address] [place] [address]
--- OUTSIDE RECORDS SUMMARY | 2023-03-09 14:22 | External Medical Summary ---
Author Name Unknown Address Unknown Organization K01:LABORATORY [facility] [place] - [facility] [address] [facility] [address] [place] [address] Laboratory Report Ordering Provider Test Date Status CHARLENE CONTRERAS 01/29/2023 03:25:35 Final CRRT Labs: check once daily if not done already
Labs to be Drawn Peripherally

Anticoagulation may affect testing. Refer to [facility] Test Catalog for a list of effects. Observation Date Value Abnormality Reference (Units ) Status aPTT panel - Platelet poor plasma 01/29/2023 03:25:35 55 Above high normal 21-38 (seconds) Final Performing Location LABORATORY [facility] [place] - [facility] [address] [place] [address]
--- OUTSIDE RECORDS SUMMARY | 2023-03-09 14:22 | External Medical Summary ---
Author Name Unknown Address Unknown Organization K01:LABORATORY [facility] - [address] [place] [address] Laboratory Report Ordering Provider Test Date Status PERFECTO GO 01/30/2023 04:11:09 Final Observation Date Value Abnormality Reference (Units ) Status Magnesium 01/30/2023 04:11:09 2.5 1.5-2.6 (m g/dL) Final Performing Location LABORATORY [facility] - [address] [place] [address]
--- OUTSIDE RECORDS SUMMARY | 2023-03-09 14:22 | External Medical Summary ---
Author Name Unknown Address Unknown Organization K01:LABORATORY [facility] - [address] [place] [address] Laboratory Report Ordering Provider Test Date Status PERFECTO GO 01/29/2023 03:25:35 Final Observation Date Value Abnormality Reference (Units ) Status Phosphate 01/29/2023 03:25:35 2.7 2.5-4.8 (m g/dL) Final Performing Location LABORATORY [facility] - [address] [place] [address]
--- OUTSIDE RECORDS SUMMARY | 2023-03-09 14:22 | External Medical Summary ---
Author Name Unknown Address Unknown Organization K01:[place] [facility] [place] [facility] [address] [facility] [address] [place] [address] Laboratory Report Ordering Provider Test Date Status JUAN ANDINO 01/29/2023 03:25:35 Final While on heparin for CRRT Observation Date Value Abnormality Reference (Units ) Status Heparin, unfractionated level 01/29/2023 03:25:35 0.11 Above high normal <0.10 (IU/mL) Final Unfractionated therapeutic r anges for Anti Xa activity:
For Cardiac/Neurologic treatment: 0.3 to 0.6 IU/mL.
For treatment of DVT or Pulmonary Embolism: 0.3 to 0.7 IU/mL. Performing Location LAB[place] [facility] [place] - [facility] [place] [address]
--- OUTSIDE RECORDS SUMMARY | 2023-03-09 14:23 | External Medical Summary ---
Author Name Unknown Address Unknown Organization K01:LABORATORY [facility] [place] - [facility] [address] [place] [address] Laboratory Report Ordering Provider Test Date Status PERFECTO GO 01/28/2023 04:24:59 Final Observation Date Value Abnormality Reference (Units ) Status BUN 01/28/2023 04:24:59 9 6-20 (mg/dL) Final Creatinine 01/28/2023 04:24:59 1.3 Above high normal 0.5-1.0 (mg/dL) Final Glomerular filtration rate/1.73 sq M.predicted [Volume Rate/Area] in Serum, Plasma or Blood by Creatinine-based formula (CKD-EPI) 01/28/2023 04:24:59 46 Below low normal >=60 (mL/min) Final eGFR is calculated based on the CKD-EPI 2020 equation SODIUM 01/28/2023 04:24:59 137 135-146 (m mol/L) Final Potassium 01/28/2023 04:24:59 4.3 3.5-5.1 (m mol/L) Final Cl 01/28/2023 04:24:59 102 98-107 (mm ol/L) Final CO2 01/28/2023 04:24:59 22 22-32 (mmo l/L) Final Anion gap 01/28/2023 04:24:59 13 7-15 (mmol /L) Final Glucose 01/28/2023 04:24:59 111 70-120 (mg /dL) Final Calcium 01/28/2023 04:24:59 8.9 8.4-10.2 ( mg/dL) Final Performing Location LABORATORY [facility] [place] - [facility] [address] [place] [address]
--- OUTSIDE RECORDS SUMMARY | 2023-03-09 14:23 | External Medical Summary ---
Author Name Unknown Address Unknown Organization K01:LABORATORY [facility] [place] [address] [place] [address] Laboratory Report Ordering Provider Test Date Status CHARLENE CONTRERAS 01/28/2023 21:46:59 Final CRRT Labs: Check at initiati on of CRRT, One hour after CRRT and Every 6 hours
Labs to be Drawn Peripherally
Send in a separate tube. Observation Date Value Abnormality Reference (Units ) Status Calcium.ionized [Moles/volume] in Blood by Ion-selective membrane electrode (ISE) 01/28/2023 21:46:59 1.26 1.13-1.32 (mmol/L) Final Performing Location LABORATORY [facility] [place] - [address] [place] [address]
--- OUTSIDE RECORDS SUMMARY | 2023-03-09 14:23 | External Medical Summary ---
Author Name Unknown Address Unknown Organization K01:LABORATORY [facility] [place] - [address] [place] [address] Laboratory Report Ordering Provider Test Date Status CHARLENE CONTRERAS 01/28/2023 16:14:47 Final CRRT Labs: Check at initiati on of CRRT, One hour after CRRT and Every 6 hours
Labs to be Drawn Peripherally Observation Date Value Abnormality Reference (Units ) Status BUN 01/28/2023 16:14:47 8 6-20 (mg/dL) Final Creatinine 01/28/2023 16:14:47 1.2 Above high normal 0.5-1.0 (mg/dL) Final Glomerular filtration rate/1.73 sq M.predicted [Volume Rate/Area] in Serum, Plasma or Blood by Creatinine-based formula (CKD-EPI) 01/28/2023 16:14:47 54 Below low normal >=60 (mL/min) Final eGFR is calculated based on the CKD-EPI 2020 equation SODIUM 01/28/2023 16:14:47 138 135-146 (m mol/L) Final Potassium 01/28/2023 16:14:47 4.3 3.5-5.1 (m mol/L) Final Cl 01/28/2023 16:14:47 101 98-107 (mm ol/L) Final CO2 01/28/2023 16:14:47 22 22-32 (mmo l/L) Final Anion gap 01/28/2023 16:14:47 15 7-15 (mmol /L) Final Glucose 01/28/2023 16:14:47 109 70-120 (mg /dL) Final Calcium 01/28/2023 16:14:47 9.2 8.4-10.2 ( mg/dL) Final Performing Location LABORATORY [facility] [place] - [address] [place] [address]
--- OUTSIDE RECORDS SUMMARY | 2023-03-09 14:23 | External Medical Summary ---
Author Name Unknown Address Unknown Organization K01:LABORATORY [facility] - [address] [address] Laboratory Report Ordering Provider Test Date Status PERFECTO GO 01/28/2023 04:24:59 Final Observation Date Value Abnormality Reference (Units ) Status Magnesium 01/28/2023 04:24:59 2.5 1.5-2.6 (m g/dL) Final Performing Location LABORATORY [facility] - [address] [place] [address]
--- OUTSIDE RECORDS SUMMARY | 2023-03-09 14:23 | External Medical Summary ---
Author Name Unknown Address Unknown Organization K01:[place]ATORY [facility] [place] [address] [place] [address] Laboratory Report Ordering Provider Test Date Status AMELIA VIDALESANAHY 01/28/2023 04:24:59 Final Trough level is to be drawn prior to administration of the next dose. Ensure vancomycin is not infusing prior to drawing level. Observation Date Value Abnormality Reference (Units ) Status Vancomycin, trough 01/28/2023 04:24:59 28.9 Above high normal 10.0-20.0 (ug/mL) Final Performing Location LABORATORY [facility] [place] [address] [place] [address]
--- OUTSIDE RECORDS SUMMARY | 2023-03-09 14:23 | External Medical Summary ---
Author Name Unknown Address Unknown Organization K01:LABORATORY [facility] [place] - [address] [place] [address] Laboratory Report Ordering Provider Test Date Status CHARLENE CONTRERAS 01/28/2023 04:24:59 Final CRRT Labs: Check at initiati on of CRRT, One hour after CRRT and Every 6 hours
Labs to be Drawn Peripherally
Send in a separate tube. Observation Date Value Abnormality Reference (Units ) Status Calcium.ionized [Moles/volume] in Blood by Ion-selective membrane electrode (ISE) 01/28/2023 04:24:59 1.26 1.13-1.32 (mmol/L) Final Performing Location LABORATORY [facility] [place] - [address] [address]
--- OUTSIDE RECORDS SUMMARY | 2023-03-09 14:23 | External Medical Summary ---
Author Name Unknown Address Unknown Organization K01:LABORATORY [facility] [place] - [address] [place] [address] Laboratory Report Ordering Provider Test Date Status CHARLENE CONTRERAS 01/28/2023 09:58:13 Final CRRT Labs: Check at initiati on of CRRT, One hour after CRRT and Every 6 hours
Labs to be Drawn Peripherally
Send in a separate tube. Observation Date Value Abnormality Reference (Units ) Status Calcium.ionized [Moles/volume] in Blood by Ion-selective membrane electrode (ISE) 01/28/2023 09:58:13 1.25 1.13-1.32 (mmol/L) Final Performing Location LABORATORY [facility] [place] - [address] [place] [address]
--- OUTSIDE RECORDS SUMMARY | 2023-03-09 14:23 | External Medical Summary ---
Author Name Unknown Address Unknown Organization K01:LABORATORY [facility] [place] - [address] [address] Laboratory Report Ordering Provider Test Date Status CHARLENE CONTRERAS 01/28/2023 21:46:59 Final CRRT Labs: Check at initiati on of CRRT, One hour after CRRT and Every 6 hours
Labs to be Drawn Peripherally Observation Date Value Abnormality Reference (Units ) Status Phosphate 01/28/2023 21:46:59 2.8 2.5-4.8 (m g/dL) Final Performing Location LABORATORY [facility] [place] - [address] [address]
--- OUTSIDE RECORDS SUMMARY | 2023-03-09 14:23 | External Medical Summary ---
Author Name Unknown Address Unknown Organization K01:LABORATORY [facility] [place] - [facility] [address] [facility] [address] [place] [address] Laboratory Report Ordering Provider Test Date Status JUAN ANDINO 01/28/2023 04:24:59 Final While on heparin for CRRT Observation Date Value Abnormality Reference (Units ) Status Heparin, unfractionated level 01/28/2023 04:24:59 0.18 Above high normal <0.10 (IU/mL) Final Unfractionated therapeutic r anges for Anti Xa activity:
For Cardiac/Neurologic treatment: 0.3 to 0.6 IU/mL.
For treatment of DVT or Pulmonary Embolism: 0.3 to 0.7 IU/mL. Performing Location LABORATORY [facility] [place] - [facility] [place] [address]
--- OUTSIDE RECORDS SUMMARY | 2023-03-09 14:23 | External Medical Summary ---
Author Name Unknown Address Unknown Organization K01:[place] [facility] [place] [address] [address] Laboratory Report Ordering Provider Test Date Status CHARLENE CONTRERAS 01/27/2023 22:03:11 Final CRRT Labs: Check at initiati on of CRRT, One hour after CRRT and Every 6 hours
Labs to be Drawn Peripherally Observation Date Value Abnormality Reference (Units ) Status Phosphate 01/27/2023 22:03:11 2.4 Below low normal 2.5 -4.8 (mg/dL) Final Performing Location [place] [facility] [place] [facility] [place] [address] [place] [address]
--- OUTSIDE RECORDS SUMMARY | 2023-03-09 14:23 | External Medical Summary ---
Author Name Unknown Address Unknown Organization K01:LABORATORY [facility] [place] - [facility] [address] [facility] [address] [facility] [address] Laboratory Report Ordering Provider Test Date Status PERFECTO GO 01/28/2023 04:24:59 Final Observation Date Value Abnormality Reference (Units ) Status WBC, Total 01/28/2023 04:24:59 17.07 Above high normal 4.00-10.80 (K/uL) Final RBC 01/28/2023 04:24:59 2.44 3.85-5.15 (M/uL) Final Hemoglobin 01/28/2023 04:24:59 7.5 Below low normal 12.0-15.3 (g/dL) Final HCT 01/28/2023 04:24:59 25.5 Below low normal 36.0-45.2 (%) Final MCV 01/28/2023 04:24:59 104.5 81.5-97.5 (fL) Final MCH 01/28/2023 04:24:59 30.7 27.0-34.0 (pg) Final MCHC 01/28/2023 04:24:59 29.4 32.0-36.0 (g/dL) Final RDW 01/28/2023 04:24:59 20.9 11.5-15.5 (%) Final Platelets 01/28/2023 04:24:59 139 Below low normal 140-400 (K/uL) Final MPV 01/28/2023 04:24:59 11.6 6.6-11.1 (fL) Final Nucleated erythrocytes/100 leukocytes [Ratio] in Blood by Automated count 01/28/2023 04:24:59 0 <=0 (/100 WBCs) Final Performing Location LABORATORY [facility] [place] - [address] [place] [address]
--- OUTSIDE RECORDS SUMMARY | 2023-03-09 14:23 | External Medical Summary ---
Author Name Unknown Address Unknown Organization K01:LAB[facility]ATORY [facility] [place] - [address] [address] Laboratory Report Ordering Provider Test Date Status CHARLENE CONTRERAS 01/27/2023 22:03:11 Final CRRT Labs: Check at initiati on of CRRT, One hour after CRRT and Every 6 hours
Labs to be Drawn Peripherally Observation Date Value Abnormality Reference (Units ) Status Magnesium 01/27/2023 22:03:11 2.5 1.5-2.6 (m g/dL) Final Performing Location LABORATORY [facility] [place] - [address] [address]
--- OUTSIDE RECORDS SUMMARY | 2023-03-09 14:23 | External Medical Summary ---
Author Name Unknown Address Unknown Organization K01:[place] [place] [address] [address] Laboratory Report Ordering Provider Test Date Status CHARLENE CONTRERAS 01/28/2023 16:14:47 Final CRRT Labs: Check at initiati on of CRRT, One hour after CRRT and Every 6 hours
Labs to be Drawn Peripherally Observation Date Value Abnormality Reference (Units ) Status Phosphate 01/28/2023 16:14:47 2.9 2.5-4.8 (m g/dL) Final Performing Location [facility] [place] [address] [place] [address]
--- OUTSIDE RECORDS SUMMARY | 2023-03-09 14:23 | External Medical Summary ---
Author Name Unknown Address Unknown Organization K01:LABORATORY [facility] [place] - [address] [address] Laboratory Report Ordering Provider Test Date Status CHARLENE CONTRERAS 01/28/2023 09:58:13 Final CRRT Labs: Check at initiati on of CRRT, One hour after CRRT and Every 6 hours
Labs to be Drawn Peripherally Observation Date Value Abnormality Reference (Units ) Status Magnesium 01/28/2023 09:58:13 2.5 1.5-2.6 (m g/dL) Final Performing Location LABORATORY [facility] [place] - [address] [address]
--- OUTSIDE RECORDS SUMMARY | 2023-03-09 14:23 | External Medical Summary ---
Author Name Unknown Address Unknown Organization K01:[facility]ORY [facility] [place] [address] [place] [address] Laboratory Report Ordering Provider Test Date Status CHARLENE CONTRERAS 01/28/2023 16:14:47 Final CRRT Labs: Check at initiati on of CRRT, One hour after CRRT and Every 6 hours
Labs to be Drawn Peripherally
Send in a separate tube. Observation Date Value Abnormality Reference (Units ) Status Calcium.ionized [Moles/volume] in Blood by Ion-selective membrane electrode (ISE) 01/28/2023 16:14:47 1.26 1.13-1.32 (mmol/L) Final Performing Location LAB[facility]ORY [facility] [place] [address] [place] [address]
--- OUTSIDE RECORDS SUMMARY | 2023-03-09 14:23 | External Medical Summary ---
Author Name Unknown Address Unknown Organization K01:LABORATORY [facility] [place] - [address] [place] [address] Laboratory Report Ordering Provider Test Date Status CHARLENE CONTRERAS 01/28/2023 21:46:59 Final CRRT Labs: Check at initiati on of CRRT, One hour after CRRT and Every 6 hours
Labs to be Drawn Peripherally Observation Date Value Abnormality Reference (Units ) Status BUN 01/28/2023 21:46:59 8 6-20 (mg/dL) Final Creatinine 01/28/2023 21:46:59 1.2 Above high normal 0.5-1.0 (mg/dL) Final Glomerular filtration rate/1.73 sq M.predicted [Volume Rate/Area] in Serum, Plasma or Blood by Creatinine-based formula (CKD-EPI) 01/28/2023 21:46:59 55 Below low normal >=60 (mL/min) Final eGFR is calculated based on the CKD-EPI 2020 equation SODIUM 01/28/2023 21:46:59 137 135-146 (m mol/L) Final Potassium 01/28/2023 21:46:59 4.3 3.5-5.1 (m mol/L) Final Cl 01/28/2023 21:46:59 103 98-107 (mm ol/L) Final CO2 01/28/2023 21:46:59 21 Below low normal 22- 32 (mmol/L) Final Anion gap 01/28/2023 21:46:59 13 7-15 (mmol /L) Final Glucose 01/28/2023 21:46:59 108 70-120 (mg /dL) Final Calcium 01/28/2023 21:46:59 9.0 8.4-10.2 ( mg/dL) Final Performing Location LABORATORY [facility] [place] - [address] [place] [address]
--- OUTSIDE RECORDS SUMMARY | 2023-03-09 14:23 | External Medical Summary ---
Author Name Unknown Address Unknown Organization K01:LAB[facility]ATORY [facility] [place] [address] [address] Laboratory Report Ordering Provider Test Date Status CHARLENE CONTRERAS 01/28/2023 21:46:59 Final CRRT Labs: Check at initiati on of CRRT, One hour after CRRT and Every 6 hours
Labs to be Drawn Peripherally Observation Date Value Abnormality Reference (Units ) Status Magnesium 01/28/2023 21:46:59 2.4 1.5-2.6 (m g/dL) Final Performing Location LABORATORY [facility] [place] - [address] [address]
--- OUTSIDE RECORDS SUMMARY | 2023-03-09 14:23 | External Medical Summary ---
Author Name Unknown Address Unknown Organization K01:[place] [facility] [place] [address] [facility] [place] [address] Laboratory Report Ordering Provider Test Date Status CHARLENE CONTRERAS 01/28/2023 21:46:59 Final CRRT Labs: check once daily if not done already
Labs to be Drawn Peripherally Observation Date Value Abnormality Reference (Units ) Status WBC, Total 01/28/2023 21:46:59 10.05 4.00-10.80 (K/uL) Final RBC 01/28/2023 21:46:59 2.25 3.85-5.15 (M/uL) Final Hemoglobin 01/28/2023 21:46:59 7.0 Below lower panic limits 12.0-15.3 (g/dL) Final HCT 01/28/2023 21:46:59 23.2 Below low normal 36.0-45.2 (%) Final MCV 01/28/2023 21:46:59 103.1 81.5-97.5 (fL) Final MCH 01/28/2023 21:46:59 31.1 27.0-34.0 (pg) Final MCHC 01/28/2023 21:46:59 30.2 32.0-36.0 (g/dL) Final RDW 01/28/2023 21:46:59 21.3 11.5-15.5 (%) Final Platelets 01/28/2023 21:46:59 121 Below low normal 140-400 (K/uL) Final MPV 01/28/2023 21:46:59 11.8 6.6-11.1 (fL) Final Nucleated erythrocytes/100 leukocytes [Ratio] in Blood by Automated count 01/28/2023 21:46:59 0 <=0 (/100 WBCs) Final Performing Location [place] [facility] [place] [address] [place] [address]
--- OUTSIDE RECORDS SUMMARY | 2023-03-09 14:23 | External Medical Summary ---
Author Name Unknown Address Unknown Organization K01:LABORATORY [facility] [place] - [address] [address] Laboratory Report Ordering Provider Test Date Status CHARLENE CONTRERAS 01/28/2023 09:58:13 Final CRRT Labs: Check at initiati on of CRRT, One hour after CRRT and Every 6 hours
Labs to be Drawn Peripherally Observation Date Value Abnormality Reference (Units ) Status Phosphate 01/28/2023 09:58:13 3.0 2.5-4.8 (m g/dL) Final Performing Location LABORATORY [facility] [place] - [address] [address]
--- OUTSIDE RECORDS SUMMARY | 2023-03-09 14:23 | External Medical Summary ---
Author Name Unknown Address Unknown Organization K01:LABORATORY [facility] [place] - [address] [address] Laboratory Report Ordering Provider Test Date Status CHARLENE CONTREARS 01/28/2023 16:14:47 Final CRRT Labs: Check at initiati on of CRRT, One hour after CRRT and Every 6 hours
Labs to be Drawn Peripherally Observation Date Value Abnormality Reference (Units ) Status Magnesium 01/28/2023 16:14:47 2.5 1.5-2.6 (m g/dL) Final Performing Location LABORATORY [facility] [place] - [address] [address]
--- OUTSIDE RECORDS SUMMARY | 2023-03-09 14:23 | External Medical Summary ---
Author Name Unknown Address Unknown Organization K01:LABORATORY [facility] [place] - [address] [place] [address] Laboratory Report Ordering Provider Test Date Status CHARLENE CONTRERAS 01/28/2023 09:58:13 Final CRRT Labs: Check at initiati on of CRRT, One hour after CRRT and Every 6 hours
Labs to be Drawn Peripherally Observation Date Value Abnormality Reference (Units ) Status BUN 01/28/2023 09:58:13 8 6-20 (mg/dL) Final Creatinine 01/28/2023 09:58:13 1.2 Above high normal 0.5-1.0 (mg/dL) Final Glomerular filtration rate/1.73 sq M.predicted [Volume Rate/Area] in Serum, Plasma or Blood by Creatinine-based formula (CKD-EPI) 01/28/2023 09:58:13 51 Below low normal >=60 (mL/min) Final eGFR is calculated based on the CKD-EPI 2020 equation SODIUM 01/28/2023 09:58:13 136 135-146 (m mol/L) Final Potassium 01/28/2023 09:58:13 4.2 3.5-5.1 (m mol/L) Final Cl 01/28/2023 09:58:13 102 98-107 (mm ol/L) Final CO2 01/28/2023 09:58:13 22 22-32 (mmo l/L) Final Anion gap 01/28/2023 09:58:13 12 7-15 (mmol /L) Final Glucose 01/28/2023 09:58:13 117 70-120 (mg /dL) Final Calcium 01/28/2023 09:58:13 8.9 8.4-10.2 ( mg/dL) Final Performing Location LABORATORY [facility] [place] - [address] [place] [address]
--- OUTSIDE RECORDS SUMMARY | 2023-03-09 14:23 | External Medical Summary ---
Author Name Unknown Address Unknown Organization K01:LABORATORY [facility] [place] - [facility] [address] [facility] [address] [place] [address] Laboratory Report Ordering Provider Test Date Status JUAN ANDINO 01/28/2023 16:14:47 Final While on heparin for CRRT Observation Date Value Abnormality Reference (Units ) Status Heparin, unfractionated level 01/28/2023 16:14:47 0.21 Above high normal <0.10 (IU/mL) Final Unfractionated therapeutic r anges for Anti Xa activity:
For Cardiac/Neurologic treatment: 0.3 to 0.6 IU/mL.
For treatment of DVT or Pulmonary Embolism: 0.3 to 0.7 IU/mL. Performing Location LABORATORY [facility] [place] - [facility] [place] [address]
--- OUTSIDE RECORDS SUMMARY | 2023-03-09 14:24 | External Medical Summary ---
Author Name Unknown Address Unknown Organization K01:LABORATORY [facility] [place] - [address] [place] [address] Laboratory Report Ordering Provider Test Date Status CHARLENE CONTRERAS 01/27/2023 01:32:01 Final CRRT Labs: Check at initiati on of CRRT, One hour after CRRT and Every 6 hours
Labs to be Drawn Peripherally
Send in a separate tube. Observation Date Value Abnormality Reference (Units ) Status Calcium.ionized [Moles/volume] in Blood by Ion-selective membrane electrode (ISE) 01/27/2023 01:32:01 1.25 1.13-1.32 (mmol/L) Final Performing Location LABORATORY [facility] [place] - [address] [place] [address]
--- OUTSIDE RECORDS SUMMARY | 2023-03-09 14:24 | External Medical Summary ---
Author Name Unknown Address Unknown Organization K01:LABORATORY [facility] [place] - [address] [address] Laboratory Report Ordering Provider Test Date Status CHARLENE CONTRERAS 01/27/2023 01:32:01 Final CRRT Labs: Check at initiati on of CRRT, One hour after CRRT and Every 6 hours
Labs to be Drawn Peripherally Observation Date Value Abnormality Reference (Units ) Status Phosphate 01/27/2023 01:32:01 2.9 2.5-4.8 (m g/dL) Final Performing Location LABORATORY [facility] [place] - [address] [place] [address]
--- OUTSIDE RECORDS SUMMARY | 2023-03-09 14:24 | External Medical Summary ---
Author Name Unknown Address Unknown Organization K01:LABORATORY [facility] [place] - [address] [address] Laboratory Report Ordering Provider Test Date Status CHARLENE CONTRERAS 01/26/2023 22:46:20 Final CRRT Labs: Check at initiati on of CRRT, One hour after CRRT and Every 6 hours
Labs to be Drawn Peripherally Observation Date Value Abnormality Reference (Units ) Status Magnesium 01/26/2023 22:46:20 2.1 1.5-2.6 (m g/dL) Final Performing Location LABORATORY [facility] [place] - [address] [address]
--- OUTSIDE RECORDS SUMMARY | 2023-03-09 14:24 | External Medical Summary ---
Author Name Unknown Address Unknown Organization K01:LABORATORY [facility] [place] - [address] [place] [address] Laboratory Report Ordering Provider Test Date Status CHARLENE CONTRERAS 01/26/2023 22:46:20 Final CRRT Labs: Check at initiati on of CRRT, One hour after CRRT and Every 6 hours
Labs to be Drawn Peripherally Observation Date Value Abnormality Reference (Units ) Status BUN 01/26/2023 22:46:20 16 6-20 (mg/dL) Final Creatinine 01/26/2023 22:46:20 3.2 Above high normal 0.5-1.0 (mg/dL) Final Glomerular filtration rate/1.73 sq M.predicted [Volume Rate/Area] in Serum, Plasma or Blood by Creatinine-based formula (CKD-EPI) 01/26/2023 22:46:20 16 Below low normal >=60 (mL/min) Final eGFR is calculated based on the CKD-EPI 2020 equation SODIUM 01/26/2023 22:46:20 134 Below low normal 135 -146 (mmol/L) Final Potassium 01/26/2023 22:46:20 3.9 3.5-5.1 (m mol/L) Final Cl 01/26/2023 22:46:20 100 98-107 (mm ol/L) Final CO2 01/26/2023 22:46:20 22 22-32 (mmo l/L) Final Anion gap 01/26/2023 22:46:20 12 7-15 (mmol /L) Final Glucose 01/26/2023 22:46:20 196 Above high normal 70 -120 (mg/dL) Final Calcium 01/26/2023 22:46:20 8.9 8.4-10.2 ( mg/dL) Final Performing Location LABORATORY [facility] [place] - [address] [place] [address]
--- OUTSIDE RECORDS SUMMARY | 2023-03-09 14:24 | External Medical Summary ---
Author Name Unknown Address Unknown Organization K01:[place] [facility] [place] [address] [facility] [place] [address] Laboratory Report Ordering Provider Test Date Status CHARLENE CONTRERAS 01/27/2023 03:59:30 Final CRRT Labs: check once daily if not done already
Labs to be Drawn Peripherally Observation Date Value Abnormality Reference (Units ) Status WBC, Total 01/27/2023 03:59:30 4.92 4.00-10.80 (K/uL) Final RBC 01/27/2023 03:59:30 2.52 3.85-5.15 (M/uL) Final Hemoglobin 01/27/2023 03:59:30 7.9 Below low normal 12.0-15.3 (g/dL) Final HCT 01/27/2023 03:59:30 26.0 Below low normal 36.0-45.2 (%) Final MCV 01/27/2023 03:59:30 103.2 81.5-97.5 (fL) Final MCH 01/27/2023 03:59:30 31.3 27.0-34.0 (pg) Final MCHC 01/27/2023 03:59:30 30.4 32.0-36.0 (g/dL) Final RDW 01/27/2023 03:59:30 19.7 11.5-15.5 (%) Final Platelets 01/27/2023 03:59:30 92 Below low normal 140-400 (K/uL) Final MPV 01/27/2023 03:59:30 11.4 6.6-11.1 (fL) Final Nucleated erythrocytes/100 leukocytes [Ratio] in Blood by Automated count 01/27/2023 03:59:30 0 <=0 (/100 WBCs) Final Performing Location [place] [facility] [place] [address] [address]
--- OUTSIDE RECORDS SUMMARY | 2023-03-09 14:24 | External Medical Summary ---
Author Name Unknown Address Unknown Organization K01:[place] [facility] [place] [facility] [address] [facility] [address] Laboratory Report Ordering Provider Test Date Status PERFECTO GO 01/27/2023 01:32:01 Final Observation Date Value Abnormality Reference (Units ) Status WBC, Total 01/27/2023 01:32:01 4.87 4.00-10.80 (K/uL) Final RBC 01/27/2023 01:32:01 2.54 3.85-5.15 (M/uL) Final Hemoglobin 01/27/2023 01:32:01 8.0 Below low normal 12.0-15.3 (g/dL) Final HCT 01/27/2023 01:32:01 26.5 Below low normal 36.0-45.2 (%) Final MCV 01/27/2023 01:32:01 104.3 81.5-97.5 (fL) Final MCH 01/27/2023 01:32:01 31.5 27.0-34.0 (pg) Final MCHC 01/27/2023 01:32:01 30.2 32.0-36.0 (g/dL) Final RDW 01/27/2023 01:32:01 19.8 11.5-15.5 (%) Final Platelets 01/27/2023 01:32:01 97 Below low normal 140-400 (K/uL) Final MPV 01/27/2023 01:32:01 11.2 6.6-11.1 (fL) Final Nucleated erythrocytes/100 leukocytes [Ratio] in Blood by Automated count 01/27/2023 01:32:01 0 <=0 (/100 WBCs) Final Performing Location [place] [place] [address] [facility] [place] [place] [address]
--- OUTSIDE RECORDS SUMMARY | 2023-03-09 14:24 | External Medical Summary ---
Author Name Unknown Address Unknown Organization K01:[place] [facility] [place] [address] [address] Laboratory Report Ordering Provider Test Date Status CHARLENE CONTRERAS 01/26/2023 22:46:20 Final CRRT Labs: Check at initiati on of CRRT, One hour after CRRT and Every 6 hours
Labs to be Drawn Peripherally Observation Date Value Abnormality Reference (Units ) Status Phosphate 01/26/2023 22:46:20 3.0 2.5-4.8 (m g/dL) Final Performing Location [place] [facility] [place] [address] [address]
--- OUTSIDE RECORDS SUMMARY | 2023-03-09 14:24 | External Medical Summary ---
Author Name Unknown Address Unknown Organization K01:LABORATORY [facility] [place] [facility] [place] [address] [address] Laboratory Report Ordering Provider Test Date Status CHARLENE CONTRERAS 01/27/2023 09:50:54 Final CRRT Labs: Check at initiati on of CRRT, One hour after CRRT and Every 6 hours
Labs to be Drawn Peripherally Observation Date Value Abnormality Reference (Units ) Status Phosphate 01/27/2023 09:50:54 2.7 2.5-4.8 (m g/dL) Final Performing Location LABORATORY [facility] [place] [facility] [place] [address] [address]
--- OUTSIDE RECORDS SUMMARY | 2023-03-09 14:24 | External Medical Summary ---
Author Name Unknown Address Unknown Organization K01:LABORATORY [facility] [place] - [address] [place] [address] Laboratory Report Ordering Provider Test Date Status JUAN ANDINO 01/27/2023 09:50:54 Final While on heparin for CRRT Observation Date Value Abnormality Reference (Units ) Status Heparin, unfractionated level 01/27/2023 09:50:54 <0.10 <0.10 (IU/mL) Final Unfractionated therapeutic r anges for Anti Xa activity:
For Cardiac/Neurologic treatment: 0.3 to 0.6 IU/mL.
For treatment of DVT or Pulmonary Embolism: 0.3 to 0.7 IU/mL. Performing Location LABORATORY [facility] [place] - [address] [place] [address]
--- OUTSIDE RECORDS SUMMARY | 2023-03-09 14:24 | External Medical Summary ---
Author Name Unknown Address Unknown Organization K01:LABORATORY [facility] [place] - [address] [place] [address] Laboratory Report Ordering Provider Test Date Status CHARLENE CONTRERAS 01/27/2023 09:50:54 Final CRRT Labs: Check at initiati on of CRRT, One hour after CRRT and Every 6 hours
Labs to be Drawn Peripherally Observation Date Value Abnormality Reference (Units ) Status BUN 01/27/2023 09:50:54 12 6-20 (mg/dL) Final Creatinine 01/27/2023 09:50:54 2.0 Above high normal 0.5-1.0 (mg/dL) Final Glomerular filtration rate/1.73 sq M.predicted [Volume Rate/Area] in Serum, Plasma or Blood by Creatinine-based formula (CKD-EPI) 01/27/2023 09:50:54 28 Below low normal >=60 (mL/min) Final eGFR is calculated based on the CKD-EPI 2020 equation SODIUM 01/27/2023 09:50:54 136 135-146 (m mol/L) Final Potassium 01/27/2023 09:50:54 4.3 3.5-5.1 (m mol/L) Final Cl 01/27/2023 09:50:54 101 98-107 (mm ol/L) Final CO2 01/27/2023 09:50:54 23 22-32 (mmo l/L) Final Anion gap 01/27/2023 09:50:54 12 7-15 (mmol /L) Final Glucose 01/27/2023 09:50:54 116 70-120 (mg /dL) Final Calcium 01/27/2023 09:50:54 9.1 8.4-10.2 ( mg/dL) Final Performing Location LABORATORY [facility] [place] - [address] [place] [address]
--- OUTSIDE RECORDS SUMMARY | 2023-03-09 14:24 | External Medical Summary ---
Author Name Unknown Address Unknown Organization K01:LABORATORY [facility] [place] - [address] [place] [address] Laboratory Report Ordering Provider Test Date Status CHARLENE CONTRERAS 01/27/2023 22:03:11 Final CRRT Labs: Check at initiati on of CRRT, One hour after CRRT and Every 6 hours
Labs to be Drawn Peripherally
Send in a separate tube. Observation Date Value Abnormality Reference (Units ) Status Calcium.ionized [Moles/volume] in Blood by Ion-selective membrane electrode (ISE) 01/27/2023 22:03:11 1.25 1.13-1.32 (mmol/L) Final Performing Location LABORATORY [facility] [place] - [address] [place] [address]
--- OUTSIDE RECORDS SUMMARY | 2023-03-09 14:24 | External Medical Summary ---
Author Name Unknown Address Unknown Organization K01:[place]ORY [facility] [place] [facility] [address] [place] [address] Laboratory Report Ordering Provider Test Date Status CHARLENE CONTRERAS 01/27/2023 03:59:30 Final CRRT Labs: check once daily if not done already
Labs to be Drawn Peripherally Observation Date Value Abnormality Reference (Units ) Status Albumin 01/27/2023 03:59:30 2.8 Below low normal 3.8-5.0 (g/dL) Final AST (Aspartate aminotransferase) 01/27/2023 03:59:30 7 Below low normal 10-35 (U/L) Final Alk Phos 01/27/2023 03:59:30 501 Above high normal 35-130 (U/L) Final ALT (Alanine aminotransferase) 01/27/2023 03:59:30 13 10-35 (U/L) Final Bilirubin, Total 01/27/2023 03:59:30 0.2 <=1.2 (mg/dL) Final Bilirubin, Direct 01/27/2023 03:59:30 <0.2 0.0-0.3 (mg/dL) Final Protein 01/27/2023 03:59:30 5.8 Below low normal 6.0-8.3 (g/dL) Final Performing Location LABORATORY [facility] [place] - [facility] [place] [address]
--- OUTSIDE RECORDS SUMMARY | 2023-03-09 14:24 | External Medical Summary ---
Author Name Unknown Address Unknown Organization K01:LABORATORY [facility] [place] [facility] [address] [facility] [address] [place] [address] Laboratory Report Ordering Provider Test Date Status CHARLENE CONTRERAS 01/27/2023 03:59:30 Final CRRT Labs: check once daily if not done already
Labs to be Drawn Peripherally

Anticoagulation may affect testing. Refer to [facility] Test Catalog for a list of effects. Observation Date Value Abnormality Reference (Units ) Status aPTT panel - Platelet poor plasma 01/27/2023 03:59:30 47 Above high normal 21-38 (seconds) Final Performing Location LABORATORY [facility] [place] - [facility] [address] [place] [address]
--- OUTSIDE RECORDS SUMMARY | 2023-03-09 14:24 | External Medical Summary ---
Author Name Unknown Address Unknown Organization K01:LABORATORY [facility] [place] - [facility] [address] [place] [address] Laboratory Report Ordering Provider Test Date Status PERFECTO GO 01/27/2023 03:59:30 Final Observation Date Value Abnormality Reference (Units ) Status BUN 01/27/2023 03:59:30 13 6-20 (mg/dL) Final Creatinine 01/27/2023 03:59:30 2.5 Above high normal 0.5-1.0 (mg/dL) Final Glomerular filtration rate/1.73 sq M.predicted [Volume Rate/Area] in Serum, Plasma or Blood by Creatinine-based formula (CKD-EPI) 01/27/2023 03:59:30 21 Below low normal >=60 (mL/min) Final eGFR is calculated based on the CKD-EPI 2020 equation SODIUM 01/27/2023 03:59:30 136 135-146 (m mol/L) Final Potassium 01/27/2023 03:59:30 4.0 3.5-5.1 (m mol/L) Final Cl 01/27/2023 03:59:30 102 98-107 (mm ol/L) Final CO2 01/27/2023 03:59:30 22 22-32 (mmo l/L) Final Anion gap 01/27/2023 03:59:30 12 7-15 (mmol /L) Final Glucose 01/27/2023 03:59:30 159 Above high normal 70 -120 (mg/dL) Final Calcium 01/27/2023 03:59:30 8.9 8.4-10.2 ( mg/dL) Final Performing Location LABORATORY [facility] [place] - [address] [place] [address]
--- OUTSIDE RECORDS SUMMARY | 2023-03-09 14:24 | External Medical Summary ---
Author Name Unknown Address Unknown Organization K01:LABORATORY [facility] [place] - [address] [facility] [place] [address] Laboratory Report Ordering Provider Test Date Status CHARLENE CONTRERAS 01/27/2023 03:59:30 Final CRRT Labs: check once daily if not done already
Labs to be Drawn Peripherally Observation Date Value Abnormality Reference (Units ) Status SYNC LEUKOCYTES IN BLOOD BY AUTOMATED COUNT 01/27/2023 03:59:30 4.92 4.00-10.80 (K/uL) Final Segs 01/27/2023 03:59:30 80.1 Above high normal 40.0-75.0 (%) Final Lymphs % 01/27/2023 03:59:30 9.8 Below low normal 18.0-42.0 (%) Final Monos 01/27/2023 03:59:30 8.7 1.0-11.0 (%) Final Eosinophils 01/27/2023 03:59:30 0.0 0.0-6.0 (%) Final Basos 01/27/2023 03:59:30 0.0 0.0-2.0 (%) Final Immature Granulocyte, Percent 01/27/2023 03:59:30 1.4 0.0-2.0 (%) Final Absolute Segs 01/27/2023 03:59:30 3.94 1.80-7.70 (K/uL) Final Lymphs, absolute 01/27/2023 03:59:30 0.48 Below low normal 1.00-4.80 (K/ul) Final Monos, Abs 01/27/2023 03:59:30 0.43 0.00-1.10 (K/uL) Final Eos, Abs 01/27/2023 03:59:30 0.00 0.00-0.70 (K/uL) Final Basos, Abs 01/27/2023 03:59:30 0.00 0.00-0.20 (K/uL) Final Immature Granulocytes, Number 01/27/2023 03:59:30 0.07 0.00-0.20 (K/uL) Final Performing Location LABORATORY [facility] [place] - [facility] [address] [facility] [address]
--- OUTSIDE RECORDS SUMMARY | 2023-03-09 14:24 | External Medical Summary ---
Author Name Unknown Address Unknown Organization K01:LABORATORY [facility] - [address] [address] Laboratory Report Ordering Provider Test Date Status PERFECTO GO 01/27/2023 03:59:30 Final Observation Date Value Abnormality Reference (Units ) Status Magnesium 01/27/2023 03:59:30 2.3 1.5-2.6 (m g/dL) Final Performing Location LABORATORY [facility] - [address] [place] [address]
--- OUTSIDE RECORDS SUMMARY | 2023-03-09 14:24 | External Medical Summary ---
Author Name Unknown Address Unknown Organization K01:LABORATORY [facility] [place] - [address] [place] [address] Laboratory Report Ordering Provider Test Date Status CHARLENE CONTRERAS 01/27/2023 09:50:54 Final CRRT Labs: Check at initiati on of CRRT, One hour after CRRT and Every 6 hours
Labs to be Drawn Peripherally
Send in a separate tube. Observation Date Value Abnormality Reference (Units ) Status Calcium.ionized [Moles/volume] in Blood by Ion-selective membrane electrode (ISE) 01/27/2023 09:50:54 1.25 1.13-1.32 (mmol/L) Final Performing Location LABORATORY [facility] [place] - [address] [place] [address]
--- OUTSIDE RECORDS SUMMARY | 2023-03-09 14:24 | External Medical Summary ---
Author Name Unknown Address Unknown Organization K01:LAB[place]ATORY [facility] [place] - [address] [place] [address] Laboratory Report Ordering Provider Test Date Status CHARLENE CONTRERAS 01/27/2023 01:32:01 Final CRRT Labs: Check at initiati on of CRRT, One hour after CRRT and Every 6 hours
Labs to be Drawn Peripherally Observation Date Value Abnormality Reference (Units ) Status BUN 01/27/2023 01:32:01 15 6-20 (mg/dL) Final Creatinine 01/27/2023 01:32:01 2.9 Above high normal 0.5-1.0 (mg/dL) Final Glomerular filtration rate/1.73 sq M.predicted [Volume Rate/Area] in Serum, Plasma or Blood by Creatinine-based formula (CKD-EPI) 01/27/2023 01:32:01 18 Below low normal >=60 (mL/min) Final eGFR is calculated based on the CKD-EPI 2020 equation SODIUM 01/27/2023 01:32:01 136 135-146 (m mol/L) Final Potassium 01/27/2023 01:32:01 4.0 3.5-5.1 (m mol/L) Final Cl 01/27/2023 01:32:01 102 98-107 (mm ol/L) Final CO2 01/27/2023 01:32:01 23 22-32 (mmo l/L) Final Anion gap 01/27/2023 01:32:01 11 7-15 (mmol /L) Final Glucose 01/27/2023 01:32:01 149 Above high normal 70 -120 (mg/dL) Final Calcium 01/27/2023 01:32:01 8.8 8.4-10.2 ( mg/dL) Final Performing Location LABORATORY [facility] [place] - [address] [place] [address]
--- OUTSIDE RECORDS SUMMARY | 2023-03-09 14:24 | External Medical Summary ---
Author Name Unknown Address Unknown Organization K01:LABORATORY [facility] [place] - [address] [place] [address] Laboratory Report Ordering Provider Test Date Status CHARLENE CONTRERAS 01/27/2023 03:59:30 Final CRRT Labs: Check at initiati on of CRRT, One hour after CRRT and Every 6 hours
Labs to be Drawn Peripherally
Send in a separate tube. Observation Date Value Abnormality Reference (Units ) Status Calcium.ionized [Moles/volume] in Blood by Ion-selective membrane electrode (ISE) 01/27/2023 03:59:30 1.21 1.13-1.32 (mmol/L) Final Performing Location LABORATORY [facility] [place] - [address] [address]
--- OUTSIDE RECORDS SUMMARY | 2023-03-09 14:24 | External Medical Summary ---
Author Name Unknown Address Unknown Organization K01:LABORATORY [facility] [place] - [facility] [address] [facility] [address] Laboratory Report Ordering Provider Test Date Status CHARLENE CONTRERAS 01/27/2023 03:59:30 Final CRRT Labs: check once daily if not done already
Labs to be Drawn Peripherally

Warfarin Therapy
INR: 2.0-3.0 conventional anticoagulation
INR: 2.5-3.5 high intensity anticoagulation Observation Date Value Abnormality Reference (Units ) Status PT 01/27/2023 03:59:30 15.4 Above high normal 11 .6-15.2 (seconds) Final INR 01/27/2023 03:59:30 1.2 0.8-1.2 Final Performing Location LABORATORY [facility] [place] - [facility] [address] [facility] [address]
--- OUTSIDE RECORDS SUMMARY | 2023-03-09 14:24 | External Medical Summary ---
Author Name Unknown Address Unknown Organization K01:LABORATORY [facility] [place] - [address] [place] [address] Laboratory Report Ordering Provider Test Date Status CHARLENE CONTRERAS 01/27/2023 16:08:49 Final CRRT Labs: Check at initiati on of CRRT, One hour after CRRT and Every 6 hours
Labs to be Drawn Peripherally
Send in a separate tube. Observation Date Value Abnormality Reference (Units ) Status Calcium.ionized [Moles/volume] in Blood by Ion-selective membrane electrode (ISE) 01/27/2023 16:08:49 1.21 1.13-1.32 (mmol/L) Final Performing Location LABORATORY [facility] [place] - [address] [place] [address]
--- OUTSIDE RECORDS SUMMARY | 2023-03-09 14:24 | External Medical Summary ---
Author Name Unknown Address Unknown Organization K01:[place] [facility] [place] [address] [address] Laboratory Report Ordering Provider Test Date Status CHARLENE CONTRERAS 01/27/2023 16:08:49 Final CRRT Labs: Check at initiati on of CRRT, One hour after CRRT and Every 6 hours
Labs to be Drawn Peripherally Observation Date Value Abnormality Reference (Units ) Status Magnesium 01/27/2023 16:08:49 2.4 1.5-2.6 (m g/dL) Final Performing Location [facility] [facility] [place] [address] [place] [address]
--- OUTSIDE RECORDS SUMMARY | 2023-03-09 14:24 | External Medical Summary ---
Author Name Unknown Address Unknown Organization K01:[place] [facility] [place] [address] [place] [address] Laboratory Report Ordering Provider Test Date Status CHARLENE CONTRERAS 01/26/2023 22:46:20 Final CRRT Labs: check once daily if not done already
Labs to be Drawn Peripherally Observation Date Value Abnormality Reference (Units ) Status SYNC LEUKOCYTES IN BLOOD BY AUTOMATED COUNT 01/26/2023 22:46:20 3.79 Below low normal 4.00-10.80 (K/uL) Final Segs 01/26/2023 22:46:20 85.7 Above high normal 40.0-75.0 (%) Final Lymphs % 01/26/2023 22:46:20 10.6 Below low normal 18.0-42.0 (%) Final Monos 01/26/2023 22:46:20 3.2 1.0-11.0 (%) Final Eosinophils 01/26/2023 22:46:20 0.0 0.0-6.0 (%) Final Basos 01/26/2023 22:46:20 0.0 0.0-2.0 (%) Final Immature Granulocyte, Percent 01/26/2023 22:46:20 0.5 0.0-2.0 (%) Final Absolute Segs 01/26/2023 22:46:20 3.25 1.80-7.70 (K/uL) Final Lymphs, absolute 01/26/2023 22:46:20 0.40 Below low normal 1.00-4.80 (K/ul) Final Monos, Abs 01/26/2023 22:46:20 0.12 0.00-1.10 (K/uL) Final Eos, Abs 01/26/2023 22:46:20 0.00 0.00-0.70 (K/uL) Final Basos, Abs 01/26/2023 22:46:20 0.00 0.00-0.20 (K/uL) Final Immature Granulocytes, Number 01/26/2023 22:46:20 0.02 0.00-0.20 (K/uL) Final Performing Location [place] [facility] [place] [facility] [address] [facility] [address]
--- OUTSIDE RECORDS SUMMARY | 2023-03-09 14:24 | External Medical Summary ---
Author Name Unknown Address Unknown Organization K01:LABORATORY [facility] [place] - [address] [address] Laboratory Report Ordering Provider Test Date Status CHARLENE CONTRERAS 01/27/2023 09:50:54 Final CRRT Labs: Check at initiati on of CRRT, One hour after CRRT and Every 6 hours
Labs to be Drawn Peripherally Observation Date Value Abnormality Reference (Units ) Status Magnesium 01/27/2023 09:50:54 2.4 1.5-2.6 (m g/dL) Final Performing Location LABORATORY [facility] [place] - [address] [place] [address]
--- OUTSIDE RECORDS SUMMARY | 2023-03-09 14:24 | External Medical Summary ---
Author Name Unknown Address Unknown Organization K01:[place] [facility] [place] [address] [place] [address] Laboratory Report Ordering Provider Test Date Status CHARLENE CONTRERAS 01/27/2023 16:08:49 Final CRRT Labs: Check at initiati on of CRRT, One hour after CRRT and Every 6 hours
Labs to be Drawn Peripherally Observation Date Value Abnormality Reference (Units ) Status BUN 01/27/2023 16:08:49 10 6-20 (mg/dL) Final Creatinine 01/27/2023 16:08:49 1.6 Above high normal 0.5-1.0 (mg/dL) Final Glomerular filtration rate/1.73 sq M.predicted [Volume Rate/Area] in Serum, Plasma or Blood by Creatinine-based formula (CKD-EPI) 01/27/2023 16:08:49 37 Below low normal >=60 (mL/min) Final eGFR is calculated based on the CKD-EPI 2020 equation SODIUM 01/27/2023 16:08:49 137 135-146 (m mol/L) Final Potassium 01/27/2023 16:08:49 4.5 3.5-5.1 (m mol/L) Final Cl 01/27/2023 16:08:49 102 98-107 (mm ol/L) Final CO2 01/27/2023 16:08:49 23 22-32 (mmo l/L) Final Anion gap 01/27/2023 16:08:49 12 7-15 (mmol /L) Final Glucose 01/27/2023 16:08:49 133 Above high normal 70 -120 (mg/dL) Final Calcium 01/27/2023 16:08:49 8.8 8.4-10.2 ( mg/dL) Final Performing Location [place] [facility] [place] [address] [place] [address]
--- OUTSIDE RECORDS SUMMARY | 2023-03-09 14:24 | External Medical Summary ---
Author Name Unknown Address Unknown Organization K01:LABORATORY [facility] [place] - [address] [place] [address] Laboratory Report Ordering Provider Test Date Status CHARLENE CONTRERAS 01/26/2023 17:56:00 Final CRRT Labs: Check at initiati on of CRRT, One hour after CRRT and Every 6 hours
Labs to be Drawn Peripherally Observation Date Value Abnormality Reference (Units ) Status BUN 01/26/2023 17:56:00 16 6-20 (mg/dL) Final Creatinine 01/26/2023 17:56:00 3.4 Above high normal 0.5-1.0 (mg/dL) Final Glomerular filtration rate/1.73 sq M.predicted [Volume Rate/Area] in Serum, Plasma or Blood by Creatinine-based formula (CKD-EPI) 01/26/2023 17:56:00 15 Below low normal >=60 (mL/min) Final eGFR is calculated based on the CKD-EPI 2020 equation SODIUM 01/26/2023 17:56:00 135 135-146 (m mol/L) Final Potassium 01/26/2023 17:56:00 4.6 3.5-5.1 (m mol/L) Final Cl 01/26/2023 17:56:00 101 98-107 (mm ol/L) Final CO2 01/26/2023 17:56:00 21 Below low normal 22- 32 (mmol/L) Final Anion gap 01/26/2023 17:56:00 13 7-15 (mmol /L) Final Glucose 01/26/2023 17:56:00 162 Above high normal 70 -120 (mg/dL) Final Calcium 01/26/2023 17:56:00 9.8 8.4-10.2 ( mg/dL) Final Performing Location LABORATORY [facility] [place] - [address] [place] [address]
--- OUTSIDE RECORDS SUMMARY | 2023-03-09 14:24 | External Medical Summary ---
Author Name Unknown Address Unknown Organization K01:[place] [facility] [place] [address] [place] [address] Laboratory Report Ordering Provider Test Date Status CHARLENE CONTRERAS 01/26/2023 22:46:20 Final CRRT Labs: check once daily if not done already
Labs to be Drawn Peripherally Observation Date Value Abnormality Reference (Units ) Status WBC, Total 01/26/2023 22:46:20 3.79 Below low normal 4.00-10.80 (K/uL) Final RBC 01/26/2023 22:46:20 2.52 3.85-5.15 (M/uL) Final Hemoglobin 01/26/2023 22:46:20 7.9 Below low normal 12.0-15.3 (g/dL) Final HCT 01/26/2023 22:46:20 26.1 Below low normal 36.0-45.2 (%) Final MCV 01/26/2023 22:46:20 103.6 81.5-97.5 (fL) Final MCH 01/26/2023 22:46:20 31.3 27.0-34.0 (pg) Final MCHC 01/26/2023 22:46:20 30.3 32.0-36.0 (g/dL) Final RDW 01/26/2023 22:46:20 19.7 11.5-15.5 (%) Final Platelets 01/26/2023 22:46:20 81 Below low normal 140-400 (K/uL) Final MPV 01/26/2023 22:46:20 11.8 6.6-11.1 (fL) Final Nucleated erythrocytes/100 leukocytes [Ratio] in Blood by Automated count 01/26/2023 22:46:20 0 <=0 (/100 WBCs) Final Performing Location [place] [facility] [place] [address] [facility] [place] [address]
--- OUTSIDE RECORDS SUMMARY | 2023-03-09 14:24 | External Medical Summary ---
Author Name Unknown Address Unknown Organization K01:LAB[facility]ATORY [facility] [place] [address] [place] [address] Laboratory Report Ordering Provider Test Date Status JUAN ANDION 01/27/2023 16:08:49 Final While on heparin for CRRT Observation Date Value Abnormality Reference (Units ) Status Heparin, unfractionated level 01/27/2023 16:08:49 <0.10 <0.10 (IU/mL) Final Unfractionated therapeutic r anges for Anti Xa activity:
For Cardiac/Neurologic treatment: 0.3 to 0.6 IU/mL.
For treatment of DVT or Pulmonary Embolism: 0.3 to 0.7 IU/mL. Performing Location LABORATORY [facility] [place] [address] [place] [address]
--- OUTSIDE RECORDS SUMMARY | 2023-03-09 14:25 | External Medical Summary ---
Author Name Unknown Address Unknown Organization K01:LABORATORY [facility] - [address] [place] [address] Laboratory Report Ordering Provider Test Date Status SOBEIDAAMELIAANAHY 01/26/2023 06:21:00 Final Observation Date Value Abnormality Reference (Units ) Status Vancomycin, level 01/26/2023 06:21:00 28.8 10 .0-40.0 (ug/mL) Final Performing Location LABORATORY [facility] - [address] [address]
--- OUTSIDE RECORDS SUMMARY | 2023-03-09 14:25 | External Medical Summary ---
Author Name Unknown Address Unknown Organization K01:LABORATORY [facility] [place] - [facility] [address] [place] [address] Laboratory Report Ordering Provider Test Date Status CHARLENE CONTRERAS 01/26/2023 11:21:00 Final CRRT Labs: check once daily if not done already
Labs to be Drawn Peripherally Observation Date Value Abnormality Reference (Units ) Status Albumin 01/26/2023 11:21:00 2.7 Below low normal 3.8-5.0 (g/dL) Final AST (Aspartate aminotransferase) 01/26/2023 11:21:00 8 Below low normal 10-35 (U/L) Final Alk Phos 01/26/2023 11:21:00 541 Above high normal 35-130 (U/L) Final ALT (Alanine aminotransferase) 01/26/2023 11:21:00 14 10-35 (U/L) Final Bilirubin, Total 01/26/2023 11:21:00 0.3 <=1.2 (mg/dL) Final Bilirubin, Direct 01/26/2023 11:21:00 <0.2 0.0-0.3 (mg/dL) Final Protein 01/26/2023 11:21:00 5.9 Below low normal 6.0-8.3 (g/dL) Final Performing Location LABORATORY [facility] [place] - [facility] [place] [address]
--- OUTSIDE RECORDS SUMMARY | 2023-03-09 14:25 | External Medical Summary ---
Author Name Unknown Address Unknown Organization K01:LABORATORY [facility] [place] [address] [place] [address] Laboratory Report Ordering Provider Test Date Status CHRIS SIMMS 01/25/2023 21:53:00 Final No anaerobic bottle received . Observation Date Value Abnormality Reference (Units ) Status Bacteria identified in Specimen by Culture 01/25/2023 21:53:00 No growth Final Test: Culture, Blood
Spe heroen Source: Blood, Venous
Specimen Type: Blood
Specimen Date: 01/25/2023 9:53 PM
Result Date: 01/30/2023 11:01 PM
Result Status: Final result
Resulting Lab: LABORATORY [facility] [place]
[address]
[place] [address]

CULTURE

No growth

No anaerobic bottle received.

null Performing Location LABORATORY [facility] [place] - [address] [facility] [address]
--- OUTSIDE RECORDS SUMMARY | 2023-03-09 14:25 | External Medical Summary ---
Author Name Unknown Address Unknown Organization K01:LABORATORY [facility] – [place] - [address] [address] Laboratory Report Ordering Provider Test Date Status CHARLENE CONTRERAS 01/26/2023 11:21:00 Final CRRT Labs: Check at initiati on of CRRT, One hour after CRRT and Every 6 hours
Labs to be Drawn Peripherally Observation Date Value Abnormality Reference (Units ) Status Phosphate 01/26/2023 11:21:00 2.7 2.5-4.8 (m g/dL) Final Performing Location LABORATORY [facility] [place] - [address] [address]
--- OUTSIDE RECORDS SUMMARY | 2023-03-09 14:25 | External Medical Summary ---
Author Name Unknown Address Unknown Organization K01:LABORATORY [facility] [place] - [facility] [place] [address] Laboratory Report Ordering Provider Test Date Status CHARLENE CONTRERAS 01/26/2023 11:21:00 Final CRRT Labs: check once daily if not done already
Labs to be Drawn Peripherally

Anticoagulation may affect testing. Refer to [facility] Test Catalog for a list of effects. Observation Date Value Abnormality Reference (Units ) Status aPTT panel - Platelet poor plasma 01/26/2023 11:21:00 36 21-38 (seconds) Final Performing Location LABORATORY [facility] [place] - [facility] [place] [address]
--- OUTSIDE RECORDS SUMMARY | 2023-03-09 14:25 | External Medical Summary ---
Author Name Unknown Address Unknown Organization K01:LABORATORY [facility] – [place] - [facility] [address] Laboratory Report Ordering Provider Test Date Status PERFECTO GO 01/26/2023 04:35:00 Final Observation Date Value Abnormality Reference (Units ) Status WBC, Total 01/26/2023 04:35:00 8.48 4.00-10.80 (K/uL) Final RBC 01/26/2023 04:35:00 2.72 3.85-5.15 (M/uL) Final Hemoglobin 01/26/2023 04:35:00 8.4 Below low normal 12.0-15.3 (g/dL) Final HCT 01/26/2023 04:35:00 28.9 Below low normal 36.0-45.2 (%) Final MCV 01/26/2023 04:35:00 106.3 81.5-97.5 (fL) Final MCH 01/26/2023 04:35:00 30.9 27.0-34.0 (pg) Final MCHC 01/26/2023 04:35:00 29.1 32.0-36.0 (g/dL) Final RDW 01/26/2023 04:35:00 19.7 11.5-15.5 (%) Final Platelets 01/26/2023 04:35:00 102 Below low normal 140-400 (K/uL) Final MPV 01/26/2023 04:35:00 11.1 6.6-11.1 (fL) Final Nucleated erythrocytes/100 leukocytes [Ratio] in Blood by Automated count 01/26/2023 04:35:00 0 <=0 (/100 WBCs) Final Performing Location LABORATORY [facility] – [place] - [facility] [address] [facility] [address]
--- OUTSIDE RECORDS SUMMARY | 2023-03-09 14:25 | External Medical Summary ---
Author Name Unknown Address Unknown Organization K01:LAB[place]ATORY [facility] [place] [address] [place] [address] Laboratory Report Ordering Provider Test Date Status CHARLENE CONTRERAS 01/26/2023 11:21:00 Final CRRT Labs: Check at initiati on of CRRT, One hour after CRRT and Every 6 hours
Labs to be Drawn Peripherally
Send in a separate tube. Observation Date Value Abnormality Reference (Units ) Status Calcium.ionized [Moles/volume] in Blood by Ion-selective membrane electrode (ISE) 01/26/2023 11:21:00 1.31 1.13-1.32 (mmol/L) Final Performing Location LAB[place]ATORY [facility] [place] [address] [place] [address]
--- OUTSIDE RECORDS SUMMARY | 2023-03-09 14:25 | External Medical Summary ---
Author Name Unknown Address Unknown Organization K01:LABORATORY [facility] - [address] [address] Laboratory Report Ordering Provider Test Date Status CHRIS SIMMS 01/25/2023 21:47:00 Final Observation Date Value Abnormality Reference (Units ) Status Bacteria identified in Specimen by Culture 01/25/2023 21:47:00 No growth Final Test: Culture, Blood (Site 2 )
Specimen Source: Blood, Venous
Specimen Type: Blood
Specimen Date: 01/25/2023 9:47 PM
Result Date: 01/30/2023 11:01 PM
Result Status: Final result
Resulting Lab: LABORATORY [facility] [place]
[address]
[place] [address]

CULTURE

No growth

null Performing Location LABORATORY [facility] [place] [address] [place] [address]
--- OUTSIDE RECORDS SUMMARY | 2023-03-09 14:25 | External Medical Summary ---
Author Name Unknown Address Unknown Organization K01:LABORATORY [facility] [place] - [address] [facility] [place] [address] Laboratory Report Ordering Provider Test Date Status JOSELUIS FU 01/25/2023 22:42:41 Final Observation Date Value Abnormality Reference (Units ) Status Body temperature 01/25/2023 22:42:41 37.0 (C) Final pH of Arterial blood 01/25/2023 22:42:41 7.444 7.350-7.450 (units) Final Carbon dioxide [Partial pressure] in Arterial blood 01/25/2023 22:42:41 33.1 Below low normal 35.0-45.0 (mmHg) Final Oxygen [Partial pressure] in Arterial blood 01/25/2023 22:42:41 177.0 Above high normal 75.0-100.0 (mmHg) Final Base excess, Arterial 01/25/2023 22:42:41 -1.0 -2.0-2.0 (mmol/L) Final Hemoglobin [Mass/volume] in Blood by Oximetry 01/25/2023 22:42:41 7.9 Below low normal 12.0-15.3 (g/dL) Final Oxyhemoglobin, Arterial (FO2HB) 01/25/2023 22:42:41 97.4 94.0-99.0 (% total Hgb) Final Carboxyhemoglobin 01/25/2023 22:42:41 1.5 <=1.5 (% total Hgb) Final Smokers: 0-9.0 % Methemoglobin 01/25/2023 22:42:41 0.9 <=1.5 (% total Hgb) Final Deoxyhemoglobin/Hemog lobin.total in Arterial blood 01/25/2023 22:42:41 0.2 0.0-5.0 (% total Hgb) Final Oxygen content in Arterial blood 01/25/2023 22:42:41 11.2 Below low normal 15.0-24.0 (%vol) Final Oxygen/Total gas setting [Volume Fraction] Ventilator 01/25/2023 22:42:41 80 (%) Final O2 FLOW, [facility] - [facility] 01/25/2023 22:42:41 Not Provided (L/min) Final Bicarbonate, Venous, POC (i-STAT) 01/25/2023 22:42:41 22.3 Below low normal 23.0-31.0 (mmol/L) Final Performing Location LABORATORY [facility] [place] - [address] [facility] [address]
--- OUTSIDE RECORDS SUMMARY | 2023-03-09 14:25 | External Medical Summary ---
Author Name Unknown Address Unknown Organization K01:LABORATORY [facility] - [address] [address] Laboratory Report Ordering Provider Test Date Status CHARLENE CONTRERAS 01/26/2023 17:56:00 Final CRRT Labs: Check at initiati on of CRRT, One hour after CRRT and Every 6 hours
Labs to be Drawn Peripherally Observation Date Value Abnormality Reference (Units ) Status Magnesium 01/26/2023 17:56:00 2.3 1.5-2.6 (m g/dL) Final Performing Location LABORATORY [facility] - [address] [address]
--- OUTSIDE RECORDS SUMMARY | 2023-03-09 14:25 | External Medical Summary ---
Author Name Unknown Address Unknown Organization K01:LABORATORY [facility] [place] - [facility] [place] [address] Laboratory Report Ordering Provider Test Date Status CHARLENE CONTRERAS 01/26/2023 11:21:00 Final CRRT Labs: check once daily if not done already
Labs to be Drawn Peripherally

Warfarin Therapy
INR: 2.0-3.0 conventional anticoagulation
INR: 2.5-3.5 high intensity anticoagulation Observation Date Value Abnormality Reference (Units ) Status PT 01/26/2023 11:21:00 15.2 11.6-15.2 (seconds) Final INR 01/26/2023 11:21:00 1.2 0.8-1.2 Final Performing Location LABORATORY [facility] [place] - [address] [place] [address]
--- OUTSIDE RECORDS SUMMARY | 2023-03-09 14:25 | External Medical Summary ---
Author Name Unknown Address Unknown Organization K01:LABORATORY [facility] - [address] [place] [address] Laboratory Report Ordering Provider Test Date Status ABBISTEWARTPERFECTO 01/26/2023 04:35:00 Final Observation Date Value Abnormality Reference (Units ) Status Magnesium 01/26/2023 04:35:00 2.1 1.5-2.6 (m g/dL) Final Performing Location LABORATORY [facility] - [address] [place] [address]
--- OUTSIDE RECORDS SUMMARY | 2023-03-09 14:25 | External Medical Summary ---
Author Name Unknown Address Unknown Organization K01:[place]ORY [facility] [place] [address] [place] [address] Laboratory Report Ordering Provider Test Date Status CHARLENE CONTRERAS 01/26/2023 11:21:00 Final CRRT Labs: check once daily if not done already
Labs to be Drawn Peripherally Observation Date Value Abnormality Reference (Units ) Status WBC, Total 01/26/2023 11:21:00 5.75 4.00-10.80 (K/uL) Final RBC 01/26/2023 11:21:00 2.60 3.85-5.15 (M/uL) Final Hemoglobin 01/26/2023 11:21:00 8.1 Below low normal 12.0-15.3 (g/dL) Final HCT 01/26/2023 11:21:00 26.9 Below low normal 36.0-45.2 (%) Final MCV 01/26/2023 11:21:00 103.5 81.5-97.5 (fL) Final MCH 01/26/2023 11:21:00 31.2 27.0-34.0 (pg) Final MCHC 01/26/2023 11:21:00 30.1 32.0-36.0 (g/dL) Final RDW 01/26/2023 11:21:00 19.5 11.5-15.5 (%) Final Platelets 01/26/2023 11:21:00 96 Below low normal 140-400 (K/uL) Final MPV 01/26/2023 11:21:00 11.1 6.6-11.1 (fL) Final Nucleated erythrocytes/100 leukocytes [Ratio] in Blood by Automated count 01/26/2023 11:21:00 0 <=0 (/100 WBCs) Final Performing Location LABORATORY [facility] [place] [address] [place] [address]
--- OUTSIDE RECORDS SUMMARY | 2023-03-09 14:25 | External Medical Summary ---
Author Name Unknown Address Unknown Organization K01:[place]ATORY [facility] [place] [address] [facility] [address] [place] [address] Laboratory Report Ordering Provider Test Date Status CHARLENE CONTRERAS 01/26/2023 17:56:00 Final CRRT Labs: Check at initiati on of CRRT, One hour after CRRT and Every 6 hours
Labs to be Drawn Peripherally
Send in a separate tube. Observation Date Value Abnormality Reference (Units ) Status Calcium.ionized [Moles/volume] in Blood by Ion-selective membrane electrode (ISE) 01/26/2023 17:56:00 1.33 Above high normal 1.13-1.32 (mmol/L) Final Performing Location LABORATORY [facility] [place] [address] [place] [address]
--- OUTSIDE RECORDS SUMMARY | 2023-03-09 14:25 | External Medical Summary ---
Author Name Unknown Address Unknown Organization K01:LABORATORY [facility] - [address] [place] [address] Laboratory Report Ordering Provider Test Date Status JOSELUIS FU 01/25/2023 15:18:28 Final Observation Date Value Abnormality Reference (Units ) Status Magnesium 01/25/2023 15:18:28 2.1 1.5-2.6 (m g/dL) Final Performing Location LABORATORY [facility] - [address] [place] [address]
--- OUTSIDE RECORDS SUMMARY | 2023-03-09 14:25 | External Medical Summary ---
Author Name Unknown Address Unknown Organization K01:LABORATORY [facility] [place] - [address] [facility] [place] [address] Laboratory Report Ordering Provider Test Date Status CHARLENE CONTRERAS 01/26/2023 11:21:00 Final CRRT Labs: check once daily if not done already
Labs to be Drawn Peripherally Observation Date Value Abnormality Reference (Units ) Status SYNC LEUKOCYTES IN BLOOD BY AUTOMATED COUNT 01/26/2023 11:21:00 5.75 4.00-10.80 (K/uL) Final Segs 01/26/2023 11:21:00 86.2 Above high normal 40.0-75.0 (%) Final Lymphs % 01/26/2023 11:21:00 9.4 Below low normal 18.0-42.0 (%) Final Monos 01/26/2023 11:21:00 3.3 1.0-11.0 (%) Final Eosinophils 01/26/2023 11:21:00 0.0 0.0-6.0 (%) Final Basos 01/26/2023 11:21:00 0.2 0.0-2.0 (%) Final Immature Granulocyte, Percent 01/26/2023 11:21:00 0.9 0.0-2.0 (%) Final Absolute Segs 01/26/2023 11:21:00 4.96 1.80-7.70 (K/uL) Final Lymphs, absolute 01/26/2023 11:21:00 0.54 Below low normal 1.00-4.80 (K/ul) Final Monos, Abs 01/26/2023 11:21:00 0.19 0.00-1.10 (K/uL) Final Eos, Abs 01/26/2023 11:21:00 0.00 0.00-0.70 (K/uL) Final Basos, Abs 01/26/2023 11:21:00 0.01 0.00-0.20 (K/uL) Final Immature Granulocytes, Number 01/26/2023 11:21:00 0.05 0.00-0.20 (K/uL) Final Performing Location LABORATORY [facility] [place] - [facility] [address] [facility] [address]
--- OUTSIDE RECORDS SUMMARY | 2023-03-09 14:25 | External Medical Summary ---
Author Name Unknown Address Unknown Organization K01:LABORATORY [facility] [place] - [address] [address] Laboratory Report Ordering Provider Test Date Status RUBIN SIMMSRI 01/25/2023 15:18:28 Final Observation Date Value Abnormality Reference (Units ) Status Troponin T 01/25/2023 15:18:28 216 Above upper panic limits <=14 (ng/L) Final Performing Location LABORATORY [facility] [place] - [address] [place] [address]
--- OUTSIDE RECORDS SUMMARY | 2023-03-09 14:25 | External Medical Summary ---
Author Name Unknown Address Unknown Organization K01:LABORATORY [facility] - [address] [place] [address] Laboratory Report Ordering Provider Test Date Status JOSELUIS FU 01/25/2023 15:18:28 Final Observation Date Value Abnormality Reference (Units ) Status Phosphate 01/25/2023 15:18:28 3.2 2.5-4.8 (m g/dL) Final Performing Location LABORATORY [facility] - [address] [place] [address]
--- OUTSIDE RECORDS SUMMARY | 2023-03-09 14:26 | External Medical Summary ---
Author Name Unknown Address Unknown Organization K01:[place] [facility] [place] [facility] [address] [facility] [address] Laboratory Report Ordering Provider Test Date Status PERFECTO GO 01/22/2023 04:33:12 Final Observation Date Value Abnormality Reference (Units ) Status WBC, Total 01/22/2023 04:33:12 7.76 4.00-10.80 (K/uL) Final RBC 01/22/2023 04:33:12 2.69 3.85-5.15 (M/uL) Final Hemoglobin 01/22/2023 04:33:12 8.4 Below low normal 12.0-15.3 (g/dL) Final HCT 01/22/2023 04:33:12 28.1 Below low normal 36.0-45.2 (%) Final MCV 01/22/2023 04:33:12 104.5 81.5-97.5 (fL) Final MCH 01/22/2023 04:33:12 31.2 27.0-34.0 (pg) Final MCHC 01/22/2023 04:33:12 29.9 32.0-36.0 (g/dL) Final RDW 01/22/2023 04:33:12 19.9 11.5-15.5 (%) Final Platelets 01/22/2023 04:33:12 120 Below low normal 140-400 (K/uL) Final MPV 01/22/2023 04:33:12 10.6 6.6-11.1 (fL) Final Nucleated erythrocytes/100 leukocytes [Ratio] in Blood by Automated count 01/22/2023 04:33:12 0 <=0 (/100 WBCs) Final Performing Location [place]ORY [facility] [place] [address] [facility] [address]
--- OUTSIDE RECORDS SUMMARY | 2023-03-09 14:26 | External Medical Summary ---
Author Name Unknown Address Unknown Organization K01:LABORATORY [facility] - [address] [place] [address] Laboratory Report Ordering Provider Test Date Status PERFECTO GO 01/24/2023 03:56:27 Final Observation Date Value Abnormality Reference (Units ) Status Magnesium 01/24/2023 03:56:27 2.3 1.5-2.6 (m g/dL) Final Performing Location LABORATORY [facility] - [address] [place] [address]
--- OUTSIDE RECORDS SUMMARY | 2023-03-09 14:26 | External Medical Summary ---
Author Name Unknown Address Unknown Organization K01:LABORATORY [facility] - [address] [address] Laboratory Report Ordering Provider Test Date Status PERFECTO GO 01/21/2023 03:48:54 Final Observation Date Value Abnormality Reference (Units ) Status Magnesium 01/21/2023 03:48:54 1.7 1.5-2.6 (m g/dL) Final Performing Location LABORATORY [facility] - [address] [place] [address]
--- OUTSIDE RECORDS SUMMARY | 2023-03-09 14:26 | External Medical Summary ---
Author Name Unknown Address Unknown Organization K01:LABORATORY [facility] [place] - [facility] [address] [facility] [address] Laboratory Report Ordering Provider Test Date Status PERFECTO GO 01/25/2023 04:38:27 Final Observation Date Value Abnormality Reference (Units ) Status WBC, Total 01/25/2023 04:38:27 6.55 4.00-10.80 (K/uL) Final RBC 01/25/2023 04:38:27 2.56 3.85-5.15 (M/uL) Final Hemoglobin 01/25/2023 04:38:27 7.8 Below low normal 12.0-15.3 (g/dL) Final HCT 01/25/2023 04:38:27 28.1 Below low normal 36.0-45.2 (%) Final MCV 01/25/2023 04:38:27 109.8 81.5-97.5 (fL) Final MCH 01/25/2023 04:38:27 30.5 27.0-34.0 (pg) Final MCHC 01/25/2023 04:38:27 27.8 32.0-36.0 (g/dL) Final RDW 01/25/2023 04:38:27 19.4 11.5-15.5 (%) Final Platelets 01/25/2023 04:38:27 96 Below low normal 140-400 (K/uL) Final MPV 01/25/2023 04:38:27 10.9 6.6-11.1 (fL) Final Nucleated erythrocytes/100 leukocytes [Ratio] in Blood by Automated count 01/25/2023 04:38:27 0 <=0 (/100 WBCs) Final Performing Location LABORATORY [facility] [place] - [facility] [address] [facility] [address]
--- OUTSIDE RECORDS SUMMARY | 2023-03-09 14:26 | External Medical Summary ---
Author Name Unknown Address Unknown Organization K01:LABORATORY [facility] [place] - [facility] [address] [facility] [address] [address] [facility] [address] Laboratory Report Ordering Provider Test Date Status PERFECTO GO 01/23/2023 03:43:36 Final Observation Date Value Abnormality Reference (Units ) Status WBC, Total 01/23/2023 03:43:36 8.46 4.00-10.80 (K/uL) Final RBC 01/23/2023 03:43:36 2.65 3.85-5.15 (M/uL) Final Hemoglobin 01/23/2023 03:43:36 8.2 Below low normal 12.0-15.3 (g/dL) Final HCT 01/23/2023 03:43:36 28.3 Below low normal 36.0-45.2 (%) Final MCV 01/23/2023 03:43:36 106.8 81.5-97.5 (fL) Final MCH 01/23/2023 03:43:36 30.9 27.0-34.0 (pg) Final MCHC 01/23/2023 03:43:36 29.0 32.0-36.0 (g/dL) Final RDW 01/23/2023 03:43:36 19.9 11.5-15.5 (%) Final Platelets 01/23/2023 03:43:36 124 Below low normal 140-400 (K/uL) Final MPV 01/23/2023 03:43:36 10.8 6.6-11.1 (fL) Final Nucleated erythrocytes/100 leukocytes [Ratio] in Blood by Automated count 01/23/2023 03:43:36 0 <=0 (/100 WBCs) Final Performing Location LABORATORY [facility] [place] - [facility] [address] [facility] [address]
--- OUTSIDE RECORDS SUMMARY | 2023-03-09 14:26 | External Medical Summary ---
Author Name Unknown Address Unknown Organization K01:LABORATORY [facility] - [address] [place] [address] Laboratory Report Ordering Provider Test Date Status CHRIS SIMMS 01/25/2023 15:18:28 Final Observation Date Value Abnormality Reference (Units ) Status Albumin 01/25/2023 15:18:28 2.8 Below low normal 3.8-5.0 (g/dL) Final AST (Aspartate aminotransferase) 01/25/2023 15:18:28 9 Below low normal 10-35 (U/L) Final Alk Phos 01/25/2023 15:18:28 618 Above high normal 35-130 (U/L) Final ALT (Alanine aminotransferase) 01/25/2023 15:18:28 16 10-35 (U/L) Final Bilirubin, Total 01/25/2023 15:18:28 0.3 <=1.2 (mg/dL) Final Bilirubin, Direct 01/25/2023 15:18:28 <0.2 0.0-0.3 (mg/dL) Final Protein 01/25/2023 15:18:28 5.6 Below low normal 6.0-8.3 (g/dL) Final Performing Location LABORATORY [facility] - [address] [address]
--- OUTSIDE RECORDS SUMMARY | 2023-03-09 14:26 | External Medical Summary ---
Author Name Unknown Address Unknown Organization K01:LABORATORY [facility] - [address] [place] [address] Laboratory Report Ordering Provider Test Date Status PERFECTO GO 01/25/2023 04:38:27 Final Observation Date Value Abnormality Reference (Units ) Status Magnesium 01/25/2023 04:38:27 2.1 1.5-2.6 (m g/dL) Final Performing Location LABORATORY [facility] - [address] [place] [address]
--- OUTSIDE RECORDS SUMMARY | 2023-03-09 14:26 | External Medical Summary ---
Author Name Unknown Address Unknown Organization K01:LABORATORY [facility] [place] - [address] [place] [address] Laboratory Report Ordering Provider Test Date Status CHRIS SIMMS 01/25/2023 15:18:28 Final Observation Date Value Abnormality Reference (Units ) Status BUN 01/25/2023 15:18:28 12 6-20 (mg/dL) Final Creatinine 01/25/2023 15:18:28 3.5 Above high normal 0.5-1.0 (mg/dL) Final Glomerular filtration rate/1.73 sq M.predicted [Volume Rate/Area] in Serum, Plasma or Blood by Creatinine-based formula (CKD-EPI) 01/25/2023 15:18:28 15 Below low normal >=60 (mL/min) Final eGFR is calculated based on the CKD-EPI 2020 equation SODIUM 01/25/2023 15:18:28 138 135-146 (m mol/L) Final Potassium 01/25/2023 15:18:28 3.9 3.5-5.1 (m mol/L) Final Cl 01/25/2023 15:18:28 104 98-107 (mm ol/L) Final CO2 01/25/2023 15:18:28 26 22-32 (mmo l/L) Final Anion gap 01/25/2023 15:18:28 8 7-15 (mmol /L) Final Glucose 01/25/2023 15:18:28 125 Above high normal 70 -120 (mg/dL) Final Calcium 01/25/2023 15:18:28 9.5 8.4-10.2 ( mg/dL) Final Performing Location LABORATORY [facility] [place] - [address] [place] [address]
--- OUTSIDE RECORDS SUMMARY | 2023-03-09 14:26 | External Medical Summary ---
Author Name Unknown Address Unknown Organization K01:LABORATORY [facility] - [address] [place] [address] Laboratory Report Ordering Provider Test Date Status PERFECTO GO 01/23/2023 03:43:36 Final Observation Date Value Abnormality Reference (Units ) Status Phosphate 01/23/2023 03:43:36 3.8 2.5-4.8 (m g/dL) Final Performing Location LABORATORY [facility] - [address] [place] [address]
--- OUTSIDE RECORDS SUMMARY | 2023-03-09 14:26 | External Medical Summary ---
Author Name Unknown Address Unknown Organization K01:LABORATORY [facility] - [address] [address] Laboratory Report Ordering Provider Test Date Status PERFECTO GO 01/22/2023 04:33:12 Final Observation Date Value Abnormality Reference (Units ) Status Magnesium 01/22/2023 04:33:12 2.5 1.5-2.6 (m g/dL) Final Performing Location LABORATORY [facility] - [address] [place] [address]
--- OUTSIDE RECORDS SUMMARY | 2023-03-09 14:26 | External Medical Summary ---
Author Name Unknown Address Unknown Organization K01:LABORATORY [facility] [place] - [address] [address] Laboratory Report Ordering Provider Test Date Status RUBIN SIMMSRI 01/25/2023 14:56:00 Final Observation Date Value Abnormality Reference (Units ) Status Lactic Acid 01/25/2023 14:56:00 0.8 0.4-2.0 (mmol/L) Final Performing Location LABORATORY [facility] - [address] [place] [address]
--- OUTSIDE RECORDS SUMMARY | 2023-03-09 14:26 | External Medical Summary ---
Author Name Unknown Address Unknown Organization K01:LABORATORY [facility] - [address] [place] [address] Laboratory Report Ordering Provider Test Date Status PERFECTO GO 01/25/2023 04:38:27 Final Observation Date Value Abnormality Reference (Units ) Status Phosphate 01/25/2023 04:38:27 2.9 2.5-4.8 (m g/dL) Final Performing Location LABORATORY [facility] - [address] [place] [address]
--- OUTSIDE RECORDS SUMMARY | 2023-03-09 14:26 | External Medical Summary ---
Author Name Unknown Address Unknown Organization K01:LABORATORY [facility] [place] - [address] [place] [address] Laboratory Report Ordering Provider Test Date Status BARBARA CHRISTINE 01/25/2023 04:38:27 Final Observation Date Value Abnormality Reference (Units ) Status Lactic Acid 01/25/2023 04:38:27 0.6 0.4-2.0 (mmol/L) Final Performing Location LABORATORY [facility] - [address] [place] [address]
--- OUTSIDE RECORDS SUMMARY | 2023-03-09 14:26 | External Medical Summary ---
Author Name Unknown Address Unknown Organization K01:LABORATORY [facility] - [address] [place] [address] Laboratory Report Ordering Provider Test Date Status PERFECTO GO 01/23/2023 03:43:36 Final Observation Date Value Abnormality Reference (Units ) Status Magnesium 01/23/2023 03:43:36 2.3 1.5-2.6 (m g/dL) Final Performing Location LABORATORY [facility] - [address] [place] [address]
--- OUTSIDE RECORDS SUMMARY | 2023-03-09 14:26 | External Medical Summary ---
Author Name Unknown Address Unknown Organization K01:LABORATORY [facility] - [address] [place] [address] Laboratory Report Ordering Provider Test Date Status PERFECTO GO 01/24/2023 03:56:27 Final Observation Date Value Abnormality Reference (Units ) Status Phosphate 01/24/2023 03:56:27 4.5 2.5-4.8 (m g/dL) Final Performing Location LAB[facility]ATORY [facility] - [address] [place] [address]
--- OUTSIDE RECORDS SUMMARY | 2023-03-09 14:26 | External Medical Summary ---
Author Name Unknown Address Unknown Organization K01:LABORATORY [facility] [place] - [facility] [address] [facility] [address] [place] [address] Laboratory Report Ordering Provider Test Date Status PERFECTO GO 01/22/2023 04:33:12 Final Observation Date Value Abnormality Reference (Units ) Status BUN 01/22/2023 04:33:12 17 6-20 (mg/dL) Final Creatinine 01/22/2023 04:33:12 3.5 Above high normal 0.5-1.0 (mg/dL) Final Glomerular filtration rate/1.73 sq M.predicted [Volume Rate/Area] in Serum, Plasma or Blood by Creatinine-based formula (CKD-EPI) 01/22/2023 04:33:12 14 Below low normal >=60 (mL/min) Final eGFR is calculated based on the CKD-EPI 2020 equation SODIUM 01/22/2023 04:33:12 139 135-146 (m mol/L) Final Potassium 01/22/2023 04:33:12 4.6 3.5-5.1 (m mol/L) Final Cl 01/22/2023 04:33:12 102 98-107 (mm ol/L) Final CO2 01/22/2023 04:33:12 24 22-32 (mmo l/L) Final Anion gap 01/22/2023 04:33:12 13 7-15 (mmol /L) Final Glucose 01/22/2023 04:33:12 89 70-120 (mg /dL) Final Calcium 01/22/2023 04:33:12 9.0 8.4-10.2 ( mg/dL) Final Performing Location LABORATORY [facility] [place] - [facility] [address] [place] [address]
--- OUTSIDE RECORDS SUMMARY | 2023-03-09 14:26 | External Medical Summary ---
Author Name Unknown Address Unknown Organization K01:LABORATORY [facility] [place] - [facility] [place] [facility] [place] [address] [facility] [address] [place] [address] Laboratory Report Ordering Provider Test Date Status PERFECTO GO 01/24/2023 03:56:27 Final Observation Date Value Abnormality Reference (Units ) Status BUN 01/24/2023 03:56:27 15 6-20 (mg/dL) Final Creatinine 01/24/2023 03:56:27 4.1 Above high normal 0.5-1.0 (mg/dL) Final Glomerular filtration rate/1.73 sq M.predicted [Volume Rate/Area] in Serum, Plasma or Blood by Creatinine-based formula (CKD-EPI) 01/24/2023 03:56:27 12 Below low normal >=60 (mL/min) Final eGFR is calculated based on the CKD-EPI 2020 equation SODIUM 01/24/2023 03:56:27 142 135-146 (m mol/L) Final Potassium 01/24/2023 03:56:27 4.0 3.5-5.1 (m mol/L) Final Cl 01/24/2023 03:56:27 105 98-107 (mm ol/L) Final CO2 01/24/2023 03:56:27 26 22-32 (mmo l/L) Final Anion gap 01/24/2023 03:56:27 11 7-15 (mmol /L) Final Glucose 01/24/2023 03:56:27 92 70-120 (mg /dL) Final Calcium 01/24/2023 03:56:27 8.9 8.4-10.2 ( mg/dL) Final Performing Location LABORATORY [facility] [place] - [facility] [place] [facility] [place] [address] [place] [address]
--- OUTSIDE RECORDS SUMMARY | 2023-03-09 14:26 | External Medical Summary ---
Author Name Unknown Address Unknown Organization K01:LABORATORY [facility] [place] - [address] [place] [address] Laboratory Report Ordering Provider Test Date Status RUBIN SIMMSRI 01/25/2023 04:38:27 Final Observation Date Value Abnormality Reference (Units ) Status Cortisol 01/25/2023 04:38:27 12.6 2.5-19.5 ( ug/dL) Final AM Reference Range: 4.8 - 19 .5 ug/dL
PM Reference Range: 2.5 - 11.9 ug/dL Performing Location LABORATORY [facility] [place] - [address] [place] [address]
--- OUTSIDE RECORDS SUMMARY | 2023-03-09 14:27 | External Medical Summary ---
Author Name Unknown Address Unknown Organization K01:[place] [facility] [place] [facility] [address] [facility] [address] Laboratory Report Ordering Provider Test Date Status PERFECTO GO 01/21/2023 03:48:54 Final Observation Date Value Abnormality Reference (Units ) Status WBC, Total 01/21/2023 03:48:54 8.31 4.00-10.80 (K/uL) Final RBC 01/21/2023 03:48:54 2.59 3.85-5.15 (M/uL) Final Hemoglobin 01/21/2023 03:48:54 8.0 Below low normal 12.0-15.3 (g/dL) Final HCT 01/21/2023 03:48:54 27.0 Below low normal 36.0-45.2 (%) Final MCV 01/21/2023 03:48:54 104.2 81.5-97.5 (fL) Final MCH 01/21/2023 03:48:54 30.9 27.0-34.0 (pg) Final MCHC 01/21/2023 03:48:54 29.6 32.0-36.0 (g/dL) Final RDW 01/21/2023 03:48:54 20.0 11.5-15.5 (%) Final Platelets 01/21/2023 03:48:54 110 Below low normal 140-400 (K/uL) Final MPV 01/21/2023 03:48:54 10.3 6.6-11.1 (fL) Final Nucleated erythrocytes/100 leukocytes [Ratio] in Blood by Automated count 01/21/2023 03:48:54 0 <=0 (/100 WBCs) Final Performing Location [place] [facility] [place] [address] [facility] [address]
--- OUTSIDE RECORDS SUMMARY | 2023-03-09 14:27 | External Medical Summary ---
Author Name Unknown Address Unknown Organization K01:LABORATORY [facility] [place] - [address] [place] [address] Laboratory Report Ordering Provider Test Date Status CHARLENE CONTRERAS 01/19/2023 10:34:37 Final Post Filter Ionized Calcium Observation Date Value Abnormality Reference (Units ) Status Calcium.ionized [Moles/volume] in Blood drawn from CRRT circuit 01/19/2023 10:34:37 0.38 0.25-0.50 (mmol/L) Final Performing Location LABORATORY [facility] [place] - [address] [place] [address]
--- OUTSIDE RECORDS SUMMARY | 2023-03-09 14:27 | External Medical Summary ---
Author Name Unknown Address Unknown Organization K01:LABORATORY [facility] - [address] [place] [address] Laboratory Report Ordering Provider Test Date Status JACEK CUEVAS 01/20/2023 08:41:29 Final Observation Date Value Abnormality Reference (Units ) Status Hep C Ab 01/20/2023 08:41:29 Negative Negative Final Further HCV quantitative radha ting not performed per protocol. Performing Location LABORATORY [facility] - [address] [place] [address]
--- OUTSIDE RECORDS SUMMARY | 2023-03-09 14:27 | External Medical Summary ---
Author Name Unknown Address Unknown Organization K01:LABORATORY [place] [address] [address] [facility] [address] [place] [address] Laboratory Report Ordering Provider Test Date Status JACEK CUEVAS 01/20/2023 08:41:29 Final Observation Date Value Abnormality Reference (Units) Status Hepatitis B virus surface Ab [Units/volume] in Serum or Plasma by Immunoassay 01/20/2023 08:41:29 902.0 (mIU/mL) Final Hepatitis B virus surface Ab [Presence] in Serum by Immunoassay 01/20/2023 08:41:29 Positive Final HEPATITIS B SURFACE ANTIBODY, INTERPRETATION 01/20/2023 08:41:29 Immune to Hepatitis B Virus Final POSITIVE: >=11.5 mIU/mL
INDETERMINATE: 8.5-<11.5 mIU/mL
NEGATIVE: <8.5 mIU/mL Performing Location LABORATORY [place] [address] [place] [address]
--- OUTSIDE RECORDS SUMMARY | 2023-03-09 14:27 | External Medical Summary ---
Author Name Unknown Address Unknown Organization K01:LABORATORY [facility] [place] - [address] [place] [address] Laboratory Report Ordering Provider Test Date Status JOSELUIS FU 01/19/2023 10:34:37 Final CRRT Labs: Check at initiati on of CRRT, One hour after CRRT and Every 6 hours
Labs to be Drawn Peripherally Observation Date Value Abnormality Reference (Units ) Status Magnesium 01/19/2023 10:34:37 1.6 1.5-2.6 (m g/dL) Final Performing Location LABORATORY [facility] [place] - [address] [place] [address]
--- OUTSIDE RECORDS SUMMARY | 2023-03-09 14:27 | External Medical Summary ---
Author Name Unknown Address Unknown Organization K01:[place]ATORY [facility] [place] [address] [place] [address] Laboratory Report Ordering Provider Test Date Status JOSELUIS FU 01/19/2023 15:23:44 Final CRRT Labs: Check at initiati on of CRRT, One hour after CRRT and Every 6 hours
Labs to be Drawn Peripherally Observation Date Value Abnormality Reference (Units ) Status Magnesium 01/19/2023 15:23:44 1.6 1.5-2.6 (m g/dL) Final Performing Location LABORATORY [facility] [place] [address] [place] [address]
--- OUTSIDE RECORDS SUMMARY | 2023-03-09 14:27 | External Medical Summary ---
Author Name Unknown Address Unknown Organization K01:LABORATORY [facility] [place] - [facility] [place] [address] [facility] [place] [address] Laboratory Report Ordering Provider Test Date Status JACEK CUEVAS 01/20/2023 08:41:29 Final Observation Date Value Abnormality Reference (Units ) Status Hepatitis B virus core Ab [Presence] in Serum 01/20/2023 08:41:29 Negative Negative Final Performing Location LABORATORY [facility] [place] - [address] [place] [address]
--- OUTSIDE RECORDS SUMMARY | 2023-03-09 14:27 | External Medical Summary ---
Author Name Unknown Address Unknown Organization K01:[place] [facility] [place] [facility] [address] [facility] [address] Laboratory Report Ordering Provider Test Date Status CHARLENE CONTRERAS 01/19/2023 04:09:43 Final CRRT Labs: Check at initiati on of CRRT, One hour after CRRT and Every 6 hours
Labs to be Drawn Peripherally Observation Date Value Abnormality Reference (Units ) Status BUN 01/19/2023 04:09:43 4 Below low normal 6-20 (mg/dL) Final Creatinine 01/19/2023 04:09:43 0.9 0.5-1.0 (mg/dL) Final Glomerular filtration rate/1.73 sq M.predicted [Volume Rate/Area] in Serum, Plasma or Blood by Creatinine-based formula (CKD-EPI) 01/19/2023 04:09:43 76 >=60 (mL/min) Final eGFR is calculated based on the CKD-EPI 2020 equation SODIUM 01/19/2023 04:09:43 137 135-146 (m mol/L) Final Potassium 01/19/2023 04:09:43 4.1 3.5-5.1 (m mol/L) Final Cl 01/19/2023 04:09:43 99 98-107 (mm ol/L) Final CO2 01/19/2023 04:09:43 24 22-32 (mmo l/L) Final Anion gap 01/19/2023 04:09:43 14 7-15 (mmol /L) Final Glucose 01/19/2023 04:09:43 92 70-120 (mg /dL) Final Calcium 01/19/2023 04:09:43 9.3 8.4-10.2 ( mg/dL) Final Performing Location LAB[facility]ATORY [facility] [place] [address] [place] [address]
--- OUTSIDE RECORDS SUMMARY | 2023-03-09 14:27 | External Medical Summary ---
Author Name Unknown Address Unknown Organization K01:[place] [facility] [place] [address] [place] [address] Laboratory Report Ordering Provider Test Date Status CHARLENE CONTRERAS 01/19/2023 10:34:37 Final CRRT Labs: Check at initiati on of CRRT, One hour after CRRT and Every 6 hours
Labs to be Drawn Peripherally Observation Date Value Abnormality Reference (Units ) Status BUN 01/19/2023 10:34:37 4 Below low normal 6-20 (mg/dL) Final Creatinine 01/19/2023 10:34:37 0.8 0.5-1.0 (mg/dL) Final Glomerular filtration rate/1.73 sq M.predicted [Volume Rate/Area] in Serum, Plasma or Blood by Creatinine-based formula (CKD-EPI) 01/19/2023 10:34:37 80 >=60 (mL/min) Final eGFR is calculated based on the CKD-EPI 2020 equation SODIUM 01/19/2023 10:34:37 136 135-146 (m mol/L) Final Potassium 01/19/2023 10:34:37 3.2 Below low normal 3.5 -5.1 (mmol/L) Final Cl 01/19/2023 10:34:37 99 98-107 (mm ol/L) Final CO2 01/19/2023 10:34:37 24 22-32 (mmo l/L) Final Anion gap 01/19/2023 10:34:37 13 7-15 (mmol /L) Final Glucose 01/19/2023 10:34:37 94 70-120 (mg /dL) Final Calcium 01/19/2023 10:34:37 9.6 8.4-10.2 ( mg/dL) Final Performing Location [place] [facility] [place] [address] [place] [address]
--- OUTSIDE RECORDS SUMMARY | 2023-03-09 14:27 | External Medical Summary ---
Author Name Unknown Address Unknown Organization K01:LABORATORY [facility] - [address] [place] [address] Laboratory Report Ordering Provider Test Date Status PERFECTO GO 01/20/2023 04:03:38 Final Observation Date Value Abnormality Reference (Units ) Status Magnesium 01/20/2023 04:03:38 1.5 1.5-2.6 (m g/dL) Final Performing Location LABORATORY [facility] - [address] [place] [address]
--- OUTSIDE RECORDS SUMMARY | 2023-03-09 14:27 | External Medical Summary ---
Author Name Unknown Address Unknown Organization K01:[place] [facility] [place] [address] [place] [address] Laboratory Report Ordering Provider Test Date Status CHARLENE CONTRERAS 01/19/2023 10:34:37 Final CRRT Labs: Check at initiati on of CRRT, One hour after CRRT and Every 6 hours
Labs to be Drawn Peripherally Observation Date Value Abnormality Reference (Units ) Status Phosphate 01/19/2023 10:34:37 2.9 2.5-4.8 (m g/dL) Final Performing Location [place] [place] [address] [place] [address]
--- OUTSIDE RECORDS SUMMARY | 2023-03-09 14:27 | External Medical Summary ---
Author Name Unknown Address Unknown Organization K01:[place] [facility] [place] [facility] [address] [facility] [address] Laboratory Report Ordering Provider Test Date Status PERFECTO GO 01/20/2023 04:03:38 Final Observation Date Value Abnormality Reference (Units ) Status WBC, Total 01/20/2023 04:03:38 9.15 4.00-10.80 (K/uL) Final RBC 01/20/2023 04:03:38 2.52 3.85-5.15 (M/uL) Final Hemoglobin 01/20/2023 04:03:38 7.8 Below low normal 12.0-15.3 (g/dL) Final HCT 01/20/2023 04:03:38 25.6 Below low normal 36.0-45.2 (%) Final MCV 01/20/2023 04:03:38 101.6 81.5-97.5 (fL) Final MCH 01/20/2023 04:03:38 31.0 27.0-34.0 (pg) Final MCHC 01/20/2023 04:03:38 30.5 32.0-36.0 (g/dL) Final RDW 01/20/2023 04:03:38 20.2 11.5-15.5 (%) Final Platelets 01/20/2023 04:03:38 115 Below low normal 140-400 (K/uL) Final MPV 01/20/2023 04:03:38 10.7 6.6-11.1 (fL) Final Nucleated erythrocytes/100 leukocytes [Ratio] in Blood by Automated count 01/20/2023 04:03:38 0 <=0 (/100 WBCs) Final Performing Location [place] [facility] [place] [facility] [address] [facility] [address]
--- OUTSIDE RECORDS SUMMARY | 2023-03-09 14:27 | External Medical Summary ---
Author Name Unknown Address Unknown Organization K01:LABORATORY [facility] - [address] [place] [address] Laboratory Report Ordering Provider Test Date Status PERFECTO GO 01/21/2023 03:48:54 Final Observation Date Value Abnormality Reference (Units ) Status Phosphate 01/21/2023 03:48:54 3.5 2.5-4.8 (m g/dL) Final Performing Location LABORATORY [facility] - [address] [place] [address]
--- OUTSIDE RECORDS SUMMARY | 2023-03-09 14:27 | External Medical Summary ---
Author Name Unknown Address Unknown Organization K01:LABORATORY [facility] - [address] [place] [address] Laboratory Report Ordering Provider Test Date Status PERFECTO GO 01/20/2023 04:03:38 Final Observation Date Value Abnormality Reference (Units ) Status Phosphate 01/20/2023 04:03:38 3.8 2.5-4.8 (m g/dL) Final Performing Location LABORATORY [facility] - [address] [place] [address]
--- OUTSIDE RECORDS SUMMARY | 2023-03-09 14:27 | External Medical Summary ---
Author Name Unknown Address Unknown Organization K01:[place]ATORY [facility] [place] [facility] [place] [address] Laboratory Report Ordering Provider Test Date Status CHARLENE CONTRERAS 01/19/2023 04:09:43 Final CRRT Labs: check once daily if not done already
Labs to be Drawn Peripherally Observation Date Value Abnormality Reference (Units ) Status Albumin 01/19/2023 04:09:43 3.0 Below low normal 3.8-5.0 (g/dL) Final AST (Aspartate aminotransferase) 01/19/2023 04:09:43 12 10-35 (U/L) Final Alk Phos 01/19/2023 04:09:43 163 Above high normal 35-130 (U/L) Final ALT (Alanine aminotransferase) 01/19/2023 04:09:43 14 10-35 (U/L) Final Bilirubin, Total 01/19/2023 04:09:43 0.3 <=1.2 (mg/dL) Final Bilirubin, Direct 01/19/2023 04:09:43 <0.2 0.0-0.3 (mg/dL) Final Protein 01/19/2023 04:09:43 5.1 Below low normal 6.0-8.3 (g/dL) Final Performing Location LABORATORY [facility] [place] - [facility] [place] [address]
--- OUTSIDE RECORDS SUMMARY | 2023-03-09 14:27 | External Medical Summary ---
Author Name Unknown Address Unknown Organization K01:[place] [facility] [place] [address] [place] [address] Laboratory Report Ordering Provider Test Date Status CHARLENE CONTRERAS 01/19/2023 04:09:43 Final CRRT Labs: Check at initiati on of CRRT, One hour after CRRT and Every 6 hours
Labs to be Drawn Peripherally Observation Date Value Abnormality Reference (Units ) Status Phosphate 01/19/2023 04:09:43 3.4 2.5-4.8 (m g/dL) Final Performing Location [place] [facility] [place] [address] [place] [address]
--- OUTSIDE RECORDS SUMMARY | 2023-03-09 14:27 | External Medical Summary ---
Author Name Unknown Address Unknown Organization K01:[place]ORY [facility] [place] [address] [place] [address] Laboratory Report Ordering Provider Test Date Status CHARLENE CONTRERAS 01/19/2023 15:23:44 Final CRRT Labs: Check at initiati on of CRRT, One hour after CRRT and Every 6 hours
Labs to be Drawn Peripherally Observation Date Value Abnormality Reference (Units ) Status Phosphate 01/19/2023 15:23:44 3.6 2.5-4.8 (m g/dL) Final Performing Location LAB[facility]ORY [facility] [place] [address] [place] [address]
--- OUTSIDE RECORDS SUMMARY | 2023-03-09 14:27 | External Medical Summary ---
Author Name Unknown Address Unknown Organization K01:[place] [facility] [place] [facility] [address] [address] [place] [address] Laboratory Report Ordering Provider Test Date Status PERFECTO GO 01/20/2023 04:03:38 Final Observation Date Value Abnormality Reference (Units ) Status BUN 01/20/2023 04:03:38 10 6-20 (mg/dL) Final Creatinine 01/20/2023 04:03:38 1.8 Above high normal 0.5-1.0 (mg/dL) Final Glomerular filtration rate/1.73 sq M.predicted [Volume Rate/Area] in Serum, Plasma or Blood by Creatinine-based formula (CKD-EPI) 01/20/2023 04:03:38 32 Below low normal >=60 (mL/min) Final eGFR is calculated based on the CKD-EPI 2020 equation SODIUM 01/20/2023 04:03:38 137 135-146 (m mol/L) Final Potassium 01/20/2023 04:03:38 4.5 3.5-5.1 (m mol/L) Final Cl 01/20/2023 04:03:38 102 98-107 (mm ol/L) Final CO2 01/20/2023 04:03:38 24 22-32 (mmo l/L) Final Anion gap 01/20/2023 04:03:38 11 7-15 (mmol /L) Final Glucose 01/20/2023 04:03:38 79 70-120 (mg /dL) Final Calcium 01/20/2023 04:03:38 9.1 8.4-10.2 ( mg/dL) Final Performing Location LAB[facility]ORY [facility] [place] [facility] [address] [place] [address]
--- OUTSIDE RECORDS SUMMARY | 2023-03-09 14:27 | External Medical Summary ---
Author Name Unknown Address Unknown Organization K01:LABORATORY [facility] - [address] [place] [address] Laboratory Report Ordering Provider Test Date Status YANIV CUEVASRA 01/20/2023 08:41:29 Final Observation Date Value Abnormality Reference (Units ) Status Hep B Core IgM 01/20/2023 08:41:29 Negative Negat jesusita Final Performing Location LABORATORY [facility] - [address] [place] [address]
--- OUTSIDE RECORDS SUMMARY | 2023-03-09 14:28 | External Medical Summary ---
Author Name Unknown Address Unknown Organization K01:LABORATORY [facility] [place] - [address] [place] [address] Laboratory Report Ordering Provider Test Date Status CHARLENE CONTRERAS 01/19/2023 04:09:43 Final CRRT Labs: Check at initiati on of CRRT, One hour after CRRT and Every 6 hours
Labs to be Drawn Peripherally
Send in a separate tube. Observation Date Value Abnormality Reference (Units ) Status Calcium.ionized [Moles/volume] in Blood by Ion-selective membrane electrode (ISE) 01/19/2023 04:09:43 1.07 Below low normal 1.13-1.32 (mmol/L) Final Performing Location LABORATORY [facility] [place] - [address] [place] [address]
--- OUTSIDE RECORDS SUMMARY | 2023-03-09 14:28 | External Medical Summary ---
Author Name Unknown Address Unknown Organization K01:[place] [facility] [place] [address] [facility] [place] [address] Laboratory Report Ordering Provider Test Date Status CHARLENE CONTRERAS 01/19/2023 04:09:43 Final CRRT Labs: check once daily if not done already
Labs to be Drawn Peripherally Observation Date Value Abnormality Reference (Units ) Status SYNC LEUKOCYTES IN BLOOD BY AUTOMATED COUNT 01/19/2023 04:09:43 8.93 4.00-10.80 (K/uL) Final Segs 01/19/2023 04:09:43 85.3 Above high normal 40.0-75.0 (%) Final Lymphs % 01/19/2023 04:09:43 7.1 Below low normal 18.0-42.0 (%) Final Monos 01/19/2023 04:09:43 5.6 1.0-11.0 (%) Final Eosinophils 01/19/2023 04:09:43 0.1 0.0-6.0 (%) Final Basos 01/19/2023 04:09:43 0.0 0.0-2.0 (%) Final Immature Granulocyte, Percent 01/19/2023 04:09:43 1.9 0.0-2.0 (%) Final Absolute Segs 01/19/2023 04:09:43 7.62 1.80-7.70 (K/uL) Final Lymphs, absolute 01/19/2023 04:09:43 0.63 Below low normal 1.00-4.80 (K/ul) Final Monos, Abs 01/19/2023 04:09:43 0.50 0.00-1.10 (K/uL) Final Eos, Abs 01/19/2023 04:09:43 0.01 0.00-0.70 (K/uL) Final Basos, Abs 01/19/2023 04:09:43 0.00 0.00-0.20 (K/uL) Final Immature Granulocytes, Number 01/19/2023 04:09:43 0.17 0.00-0.20 (K/uL) Final Performing Location LABOR[facility]ORY [facility] [place] [facility] [address] [facility] [address]
--- OUTSIDE RECORDS SUMMARY | 2023-03-09 14:28 | External Medical Summary ---
Author Name Unknown Address Unknown Organization K01:[place] [facility] [place] [address] [place] [address] Laboratory Report Ordering Provider Test Date Status CHARLENE CONTRERAS 01/18/2023 16:16:10 Final CRRT Labs: Check at initiati on of CRRT, One hour after CRRT and Every 6 hours
Labs to be Drawn Peripherally Observation Date Value Abnormality Reference (Units ) Status BUN 01/18/2023 16:16:10 6 6-20 (mg/dL) Final Creatinine 01/18/2023 16:16:10 0.8 0.5-1.0 (mg/dL) Final Glomerular filtration rate/1.73 sq M.predicted [Volume Rate/Area] in Serum, Plasma or Blood by Creatinine-based formula (CKD-EPI) 01/18/2023 16:16:10 80 >=60 (mL/min) Final eGFR is calculated based on the CKD-EPI 2020 equation SODIUM 01/18/2023 16:16:10 133 Below low normal 135 -146 (mmol/L) Final Potassium 01/18/2023 16:16:10 3.8 3.5-5.1 (m mol/L) Final Cl 01/18/2023 16:16:10 97 Below low normal 98- 107 (mmol/L) Final CO2 01/18/2023 16:16:10 24 22-32 (mmo l/L) Final Anion gap 01/18/2023 16:16:10 12 7-15 (mmol /L) Final Glucose 01/18/2023 16:16:10 117 70-120 (mg /dL) Final Calcium 01/18/2023 16:16:10 9.6 8.4-10.2 ( mg/dL) Final Performing Location [place] [facility] [place] [address] [place] [address]
--- OUTSIDE RECORDS SUMMARY | 2023-03-09 14:28 | External Medical Summary ---
Author Name Unknown Address Unknown Organization K01:LABORATORY [facility] [place] - [address] [place] [address] Laboratory Report Ordering Provider Test Date Status JOSELUIS FU 01/18/2023 22:11:03 Final CRRT Labs: Check at initiati on of CRRT, One hour after CRRT and Every 6 hours
Labs to be Drawn Peripherally Observation Date Value Abnormality Reference (Units ) Status Magnesium 01/18/2023 22:11:03 1.7 1.5-2.6 (m g/dL) Final Performing Location LABORATORY [facility] [place] - [address] [place] [address]
--- OUTSIDE RECORDS SUMMARY | 2023-03-09 14:28 | External Medical Summary ---
Author Name Unknown Address Unknown Organization K01:[place]ORY [facility] [place] [facility] [address] [facility] [address] [place] [address] Laboratory Report Ordering Provider Test Date Status CHARLENE CONTRERAS 01/19/2023 04:09:43 Final CRRT Labs: check once daily if not done already
Labs to be Drawn Peripherally

Anticoagulation may affect testing. Refer to [facility] Test Catalog for a list of effects. Observation Date Value Abnormality Reference (Units ) Status aPTT panel - Platelet poor plasma 01/19/2023 04:09:43 42 Above high normal 21-38 (seconds) Final Performing Location LAB[facility]ORY [facility] [place] [facility] [address] [place] [address]
--- OUTSIDE RECORDS SUMMARY | 2023-03-09 14:28 | External Medical Summary ---
Author Name Unknown Address Unknown Organization K01:[place] [facility] [place] [address] [address] Laboratory Report Ordering Provider Test Date Status CHARLENE CONTRERAS 01/18/2023 16:16:10 Final CRRT Labs: Check at initiati on of CRRT, One hour after CRRT and Every 6 hours
Labs to be Drawn Peripherally Observation Date Value Abnormality Reference (Units ) Status Phosphate 01/18/2023 16:16:10 4.4 2.5-4.8 (m g/dL) Final Performing Location [place] [facility] [place] [address] [address]
--- OUTSIDE RECORDS SUMMARY | 2023-03-09 14:28 | External Medical Summary ---
Author Name Unknown Address Unknown Organization K01:LABORATORY [facility] [place] - [address] [address] Laboratory Report Ordering Provider Test Date Status CHARLENE CONTRERAS 01/18/2023 10:30:53 Final CRRT Labs: Check at initiati on of CRRT, One hour after CRRT and Every 6 hours
Labs to be Drawn Peripherally Observation Date Value Abnormality Reference (Units ) Status Phosphate 01/18/2023 10:30:53 4.6 2.5-4.8 (m g/dL) Final Performing Location LABORATORY [facility] [place] - [address] [address]
--- OUTSIDE RECORDS SUMMARY | 2023-03-09 14:28 | External Medical Summary ---
Author Name Unknown Address Unknown Organization K01:LABORATORY [facility] [place] - [address] [place] [address] Laboratory Report Ordering Provider Test Date Status JOSELUIS FU 01/18/2023 16:16:10 Final CRRT Labs: Check at initiati on of CRRT, One hour after CRRT and Every 6 hours
Labs to be Drawn Peripherally Observation Date Value Abnormality Reference (Units ) Status Magnesium 01/18/2023 16:16:10 1.8 1.5-2.6 (m g/dL) Final Performing Location LABORATORY [facility] [place] - [address] [address]
--- OUTSIDE RECORDS SUMMARY | 2023-03-09 14:28 | External Medical Summary ---
Author Name Unknown Address Unknown Organization K01:[place] [facility] [place] [facility] [place] [address] Laboratory Report Ordering Provider Test Date Status CHARLENE CONTRERAS 01/19/2023 04:09:43 Final CRRT Labs: check once daily if not done already
Labs to be Drawn Peripherally

Warfarin Therapy
INR: 2.0-3.0 conventional anticoagulation
INR: 2.5-3.5 high intensity anticoagulation Observation Date Value Abnormality Reference (Units ) Status PT 01/19/2023 04:09:43 14.7 11.6-15.2 (seconds) Final INR 01/19/2023 04:09:43 1.1 0.8-1.2 Final Performing Location LAB[place]ATORY [facility] [place] [address] [place] [address]
--- OUTSIDE RECORDS SUMMARY | 2023-03-09 14:28 | External Medical Summary ---
Author Name Unknown Address Unknown Organization K01:[place] [facility] [place] [address] [place] [address] Laboratory Report Ordering Provider Test Date Status JOSELUIS FU 01/19/2023 04:09:43 Final CRRT Labs: Check at initiati on of CRRT, One hour after CRRT and Every 6 hours
Labs to be Drawn Peripherally Observation Date Value Abnormality Reference (Units ) Status Magnesium 01/19/2023 04:09:43 1.7 1.5-2.6 (m g/dL) Final Performing Location [place] [facility] [place] [address] [address]
--- OUTSIDE RECORDS SUMMARY | 2023-03-09 14:28 | External Medical Summary ---
Author Name Unknown Address Unknown Organization K01:[place] [facility] [place] [address] [address] Laboratory Report Ordering Provider Test Date Status CHARLENE CONTRERAS 01/18/2023 16:16:10 Final Post Filter Ionized Calcium Observation Date Value Abnormality Reference (Units ) Status Calcium.ionized [Moles/volume] in Blood drawn from CRRT circuit 01/18/2023 16:16:10 0.37 0.25-0.50 (mmol/L) Final Performing Location [place] [facility] [place] [address] [place] [address]
--- OUTSIDE RECORDS SUMMARY | 2023-03-09 14:28 | External Medical Summary ---
Author Name Unknown Address Unknown Organization K01:LABORATORY [facility] [place] - [address] [place] [address] Laboratory Report Ordering Provider Test Date Status CHARLENE CONTRERAS 01/18/2023 22:11:03 Final CRRT Labs: Check at initiati on of CRRT, One hour after CRRT and Every 6 hours
Labs to be Drawn Peripherally
Send in a separate tube. Observation Date Value Abnormality Reference (Units ) Status Calcium.ionized [Moles/volume] in Blood by Ion-selective membrane electrode (ISE) 01/18/2023 22:11:03 1.10 Below low normal 1.13-1.32 (mmol/L) Final Performing Location LABORATORY [facility] [place] - [address] [place] [address]
--- OUTSIDE RECORDS SUMMARY | 2023-03-09 14:28 | External Medical Summary ---
Author Name Unknown Address Unknown Organization K01:[place] [facility] [place] [address] [place] [address] Laboratory Report Ordering Provider Test Date Status CHARLENE CONTRERAS 01/19/2023 04:09:43 Final Post Filter Ionized Calcium Observation Date Value Abnormality Reference (Units ) Status Calcium.ionized [Moles/volume] in Blood drawn from CRRT circuit 01/19/2023 04:09:43 0.39 0.25-0.50 (mmol/L) Final Performing Location [place] [facility] [place] [address] [place] [address]
--- OUTSIDE RECORDS SUMMARY | 2023-03-09 14:28 | External Medical Summary ---
Author Name Unknown Address Unknown Organization K01:[place] [facility] [place] [address] [place] [address] Laboratory Report Ordering Provider Test Date Status CHARLENE CONTRERAS 01/18/2023 10:30:53 Final CRRT Labs: Check at initiati on of CRRT, One hour after CRRT and Every 6 hours
Labs to be Drawn Peripherally
Send in a separate tube. Observation Date Value Abnormality Reference (Units ) Status Calcium.ionized [Moles/volume] in Blood by Ion-selective membrane electrode (ISE) 01/18/2023 10:30:53 1.05 Below low normal 1.13-1.32 (mmol/L) Final Performing Location [place] [facility] [place] [address] [place] [address]
--- OUTSIDE RECORDS SUMMARY | 2023-03-09 14:28 | External Medical Summary ---
Author Name Unknown Address Unknown Organization K01:[place] [facility] [place] [address] [facility] [address] [address] Laboratory Report Ordering Provider Test Date Status CHARLENE CONTRERAS 01/18/2023 22:11:03 Final Post Filter Ionized Calcium Observation Date Value Abnormality Reference (Units ) Status Calcium.ionized [Moles/volume] in Blood drawn from CRRT circuit 01/18/2023 22:11:03 0.39 0.25-0.50 (mmol/L) Final Performing Location [place] [facility] [place] [address] [place] [address]
--- OUTSIDE RECORDS SUMMARY | 2023-03-09 14:28 | External Medical Summary ---
Author Name Unknown Address Unknown Organization K01:LABORATORY [facility] [place] - [address] [address] Laboratory Report Ordering Provider Test Date Status LESA JEAN 01/18/2023 20:08:14 Final Observation Date Value Abnormality Reference (Units ) Status Lactic Acid 01/18/2023 20:08:14 0.9 0.4-2.0 (mmol/L) Final Performing Location LABORATORY [facility] - [address] [place] [address]
--- OUTSIDE RECORDS SUMMARY | 2023-03-09 14:28 | External Medical Summary ---
Author Name Unknown Address Unknown Organization K01:LABORATORY [facility] [place] - [address] [address] Laboratory Report Ordering Provider Test Date Status CHARLENE CONTRERAS 01/18/2023 22:11:03 Final CRRT Labs: Check at initiati on of CRRT, One hour after CRRT and Every 6 hours
Labs to be Drawn Peripherally Observation Date Value Abnormality Reference (Units ) Status Phosphate 01/18/2023 22:11:03 3.6 2.5-4.8 (m g/dL) Final Performing Location LABORATORY [facility] [place] - [address] [address]
[2023-03-09] MEDS: fentaNYL citrate 2,500 MCG/250 ML BAG IV SCH (14:29)
[2023-03-09] MEDS: fentaNYL BOLUS from BAG IV PRN (14:29)
--- NOTE | 2023-03-09 14:29 | Procedure Note ---
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 Procedure: Consent was verified and timeout performed. Appropriate imaging studies were reviewed prior to the procedure. Under aseptic and sterile condition, left femoral vein was accessed under direct ultrasound guidance. Guidewire was confirmed to be within the lumen of vein with the help of ultrasound. Catheter was introduced via Seldinger technique. Guide a wire was removed. Good non-pulsatile blood flow was appreciated from all the ports. The catheter was placed at 24 cm and sutured in place. BioPatch was applied to the catheter and a sterile Tegaderm dressing was applied over the catheter with careful attention to sterility. Patient tolerated the procedure well. Blood loss: Less than 2 cc Complications: None Coding CPT Codes Tubes, Drains, and Vasc Access - Tubes, Drains, and Vasc Access: [id number] Place catheter in vein superior or inferior vena cava ([id number]) Tubes, Drains, and Vasc Access - Tubes, Drains, and Vasc Access: [id number] Ultrasound Guidance For Vascular ([id number]) [facility] Procedure Codes (Charges) Tubes, Drains, and Vasc Access Procedure 1: Tubes, Drains, and Vasc Access: [id number] Place catheter in vein superior or inferior vena cava Procedure 2: Tubes, Drains, and Vasc Access: [id number] Ultrasound Guidance For Vascular
--- OUTSIDE RECORDS SUMMARY | 2023-03-09 14:29 | External Medical Summary ---
Author Name Unknown Address Unknown Organization K01:[place] [facility] [place] [address] [place] [address] Laboratory Report Ordering Provider Test Date Status JOSELUIS FU 01/17/2023 14:48:18 Final CRRT Labs: Check at initiati on of CRRT, One hour after CRRT and Every 6 hours
Labs to be Drawn Peripherally Observation Date Value Abnormality Reference (Units ) Status Magnesium 01/17/2023 14:48:18 1.6 1.5-2.6 (m g/dL) Final Performing Location LAB[place] [facility] [place] [address] [address]
--- OUTSIDE RECORDS SUMMARY | 2023-03-09 14:29 | External Medical Summary ---
Author Name Unknown Address Unknown Organization K01:LABORATORY [facility] [place] - [facility] [place] [address] [facility] [address] Laboratory Report Ordering Provider Test Date Status JOSELUIS FU 01/18/2023 04:14:10 Final Observation Date Value Abnormality Reference (Units ) Status WBC, Total 01/18/2023 04:14:10 9.44 4.00-10.80 (K/uL) Final RBC 01/18/2023 04:14:10 2.35 3.85-5.15 (M/uL) Final Hemoglobin 01/18/2023 04:14:10 7.2 Below low normal 12.0-15.3 (g/dL) Final HCT 01/18/2023 04:14:10 23.2 Below low normal 36.0-45.2 (%) Final MCV 01/18/2023 04:14:10 98.7 81.5-97.5 (fL) Final MCH 01/18/2023 04:14:10 30.6 27.0-34.0 (pg) Final MCHC 01/18/2023 04:14:10 31.0 32.0-36.0 (g/dL) Final RDW 01/18/2023 04:14:10 19.8 11.5-15.5 (%) Final Platelets 01/18/2023 04:14:10 134 Below low normal 140-400 (K/uL) Final MPV 01/18/2023 04:14:10 10.3 6.6-11.1 (fL) Final Nucleated erythrocytes/100 leukocytes [Ratio] in Blood by Automated count 01/18/2023 04:14:10 0 <=0 (/100 WBCs) Final Performing Location LABORATORY [facility] [place] - [facility] [place] [facility] [place] [address]
--- OUTSIDE RECORDS SUMMARY | 2023-03-09 14:29 | External Medical Summary ---
Author Name Unknown Address Unknown Organization K01:[place] [facility] [place] [address] [place] [address] Laboratory Report Ordering Provider Test Date Status NICKIEJOSELUIS 01/18/2023 04:14:10 Final Observation Date Value Abnormality Reference (Units ) Status BUN 01/18/2023 04:14:10 5 Below low normal 6-20 (mg/dL) Final Creatinine 01/18/2023 04:14:10 0.9 0.5-1.0 (mg/dL) Final Glomerular filtration rate/1.73 sq M.predicted [Volume Rate/Area] in Serum, Plasma or Blood by Creatinine-based formula (CKD-EPI) 01/18/2023 04:14:10 74 >=60 (mL/min) Final eGFR is calculated based on the CKD-EPI 2020 equation SODIUM 01/18/2023 04:14:10 136 135-146 (m mol/L) Final Potassium 01/18/2023 04:14:10 4.5 3.5-5.1 (m mol/L) Final Cl 01/18/2023 04:14:10 99 98-107 (mm ol/L) Final CO2 01/18/2023 04:14:10 22 22-32 (mmo l/L) Final Anion gap 01/18/2023 04:14:10 15 7-15 (mmol /L) Final Glucose 01/18/2023 04:14:10 105 70-120 (mg /dL) Final Calcium 01/18/2023 04:14:10 9.4 8.4-10.2 ( mg/dL) Final Performing Location [place] [place] [facility] [address] [facility] [address] [place] [address]
--- OUTSIDE RECORDS SUMMARY | 2023-03-09 14:29 | External Medical Summary ---
Author Name Unknown Address Unknown Organization K01:[place] [facility] [place] [address] [address] Laboratory Report Ordering Provider Test Date Status LESA JEAN 01/17/2023 07:55:58 Final Observation Date Value Abnormality Reference (Units ) Status Lactic Acid 01/17/2023 07:55:58 0.7 0.4-2.0 (mmol/L) Final Performing Location LABORATORY [facility] - [address] [place] [address]
--- OUTSIDE RECORDS SUMMARY | 2023-03-09 14:29 | External Medical Summary ---
Author Name Unknown Address Unknown Organization K01:[place]ORY [facility] [place] [address] [place] [address] Laboratory Report Ordering Provider Test Date Status JOSELUIS FU 01/17/2023 16:09:24 Final CRRT Labs: Check at initiati on of CRRT, One hour after CRRT and Every 6 hours
Labs to be Drawn Peripherally Observation Date Value Abnormality Reference (Units ) Status Magnesium 01/17/2023 16:09:24 1.4 Below low normal 1.5 -2.6 (mg/dL) Final Performing Location [place] [facility] [place] [address] [address]
--- OUTSIDE RECORDS SUMMARY | 2023-03-09 14:29 | External Medical Summary ---
Author Name Unknown Address Unknown Organization K01:LABORATORY [facility] [place] - [address] [place] [address] Laboratory Report Ordering Provider Test Date Status JOSELUIS FU 01/17/2023 22:01:00 Final CRRT Labs: Check at initiati on of CRRT, One hour after CRRT and Every 6 hours
Labs to be Drawn Peripherally Observation Date Value Abnormality Reference (Units ) Status Magnesium 01/17/2023 22:01:00 1.8 1.5-2.6 (m g/dL) Final Performing Location LABORATORY [facility] [place] - [address] [address]
--- OUTSIDE RECORDS SUMMARY | 2023-03-09 14:29 | External Medical Summary ---
Author Name Unknown Address Unknown Organization K01:LABORATORY [facility] - [address] [address] Laboratory Report Ordering Provider Test Date Status SONYA FLOYD 01/18/2023 04:14:10 Final Observation Date Value Abnormality Reference (Units ) Status Magnesium 01/18/2023 04:14:10 2.1 1.5-2.6 (m g/dL) Final Performing Location LABORATORY [facility] - [address] [address]
--- OUTSIDE RECORDS SUMMARY | 2023-03-09 14:29 | External Medical Summary ---
Author Name Unknown Address Unknown Organization K01:LABORATORY [facility] [place] - [address] [place] [address] Laboratory Report Ordering Provider Test Date Status CHARLENE CONTRERAS 01/17/2023 14:48:18 Final CRRT Labs: Check at initiati on of CRRT, One hour after CRRT and Every 6 hours
Labs to be Drawn Peripherally Observation Date Value Abnormality Reference (Units ) Status BUN 01/17/2023 14:48:18 7 6-20 (mg/dL) Final Creatinine 01/17/2023 14:48:18 0.9 0.5-1.0 (mg/dL) Final Glomerular filtration rate/1.73 sq M.predicted [Volume Rate/Area] in Serum, Plasma or Blood by Creatinine-based formula (CKD-EPI) 01/17/2023 14:48:18 71 >=60 (mL/min) Final eGFR is calculated based on the CKD-EPI 2020 equation SODIUM 01/17/2023 14:48:18 134 Below low normal 135 -146 (mmol/L) Final Potassium 01/17/2023 14:48:18 3.6 3.5-5.1 (m mol/L) Final Cl 01/17/2023 14:48:18 99 98-107 (mm ol/L) Final CO2 01/17/2023 14:48:18 23 22-32 (mmo l/L) Final Anion gap 01/17/2023 14:48:18 12 7-15 (mmol /L) Final Glucose 01/17/2023 14:48:18 121 Above high normal 70 -120 (mg/dL) Final Calcium 01/17/2023 14:48:18 8.9 8.4-10.2 ( mg/dL) Final Performing Location LABORATORY [facility] [place] - [address] [place] [address]
--- OUTSIDE RECORDS SUMMARY | 2023-03-09 14:29 | External Medical Summary ---
Author Name Unknown Address Unknown Organization K01:LABORATORY [facility] [place] [address] [address] Laboratory Report Ordering Provider Test Date Status CHARLENE CONTRERAS 01/17/2023 16:09:24 Final CRRT Labs: Check at initiati on of CRRT, One hour after CRRT and Every 6 hours
Labs to be Drawn Peripherally Observation Date Value Abnormality Reference (Units ) Status Phosphate 01/17/2023 16:09:24 3.0 2.5-4.8 (m g/dL) Final Performing Location LABORATORY [facility] [place] - [address] [address]
--- OUTSIDE RECORDS SUMMARY | 2023-03-09 14:29 | External Medical Summary ---
Author Name Unknown Address Unknown Organization K01:LABORATORY [facility] [place] - [facility] [address] [facility] [address] Laboratory Report Ordering Provider Test Date Status CHARLENE CONTRREAS 01/18/2023 04:14:10 Final CRRT Labs: check once daily if not done already
Labs to be Drawn Peripherally

Warfarin Therapy
INR: 2.0-3.0 conventional anticoagulation
INR: 2.5-3.5 high intensity anticoagulation Observation Date Value Abnormality Reference (Units ) Status PT 01/18/2023 04:14:10 15.7 Above high normal 11 .6-15.2 (seconds) Final INR 01/18/2023 04:14:10 1.2 0.8-1.2 Final Performing Location LABORATORY [facility] [place] - [facility] [address] [facility] [address]
--- OUTSIDE RECORDS SUMMARY | 2023-03-09 14:29 | External Medical Summary ---
Author Name Unknown Address Unknown Organization K01:[place] [facility] [place] [address] [address] Laboratory Report Ordering Provider Test Date Status CHARLENE CONTRERAS 01/18/2023 10:30:53 Final Post Filter Ionized Calcium Observation Date Value Abnormality Reference (Units ) Status Calcium.ionized [Moles/volume] in Blood drawn from CRRT circuit 01/18/2023 10:30:53 0.38 0.25-0.50 (mmol/L) Final Performing Location [place] [facility] [place] [address] [place] [address]
--- OUTSIDE RECORDS SUMMARY | 2023-03-09 14:29 | External Medical Summary ---
Author Name Unknown Address Unknown Organization K01:[place] [facility] [place] [address] [place] [address] Laboratory Report Ordering Provider Test Date Status CHARLENE CONTRERAS 01/17/2023 14:48:18 Final CRRT Labs: Check at initiati on of CRRT, One hour after CRRT and Every 6 hours
Labs to be Drawn Peripherally
Send in a separate tube. Observation Date Value Abnormality Reference (Units ) Status Calcium.ionized [Moles/volume] in Blood by Ion-selective membrane electrode (ISE) 01/17/2023 14:48:18 1.01 Below low normal 1.13-1.32 (mmol/L) Final Performing Location LAB[place]ORY [facility] [place] [address] [place] [address]
--- OUTSIDE RECORDS SUMMARY | 2023-03-09 14:29 | External Medical Summary ---
Author Name Unknown Address Unknown Organization K01:LABORATORY [facility] [place] - [address] [place] [address] Laboratory Report Ordering Provider Test Date Status CHARLENE CONTRERAS 01/17/2023 22:00:30 Final CRRT Labs: Check at initiati on of CRRT, One hour after CRRT and Every 6 hours
Labs to be Drawn Peripherally
Send in a separate tube. Observation Date Value Abnormality Reference (Units ) Status Calcium.ionized [Moles/volume] in Blood by Ion-selective membrane electrode (ISE) 01/17/2023 22:00:30 1.02 Below low normal 1.13-1.32 (mmol/L) Final Performing Location LABORATORY [facility] [place] - [address] [place] [address]
--- OUTSIDE RECORDS SUMMARY | 2023-03-09 14:29 | External Medical Summary ---
Author Name Unknown Address Unknown Organization K01:LABORATORY [facility] [place] - [address] [place] [address] Laboratory Report Ordering Provider Test Date Status CHARLENE CONTRERAS 01/18/2023 04:14:10 Final CRRT Labs: Check at initiati on of CRRT, One hour after CRRT and Every 6 hours
Labs to be Drawn Peripherally
Send in a separate tube. Observation Date Value Abnormality Reference (Units ) Status Calcium.ionized [Moles/volume] in Blood by Ion-selective membrane electrode (ISE) 01/18/2023 04:14:10 1.05 Below low normal 1.13-1.32 (mmol/L) Final Performing Location LABORATORY [facility] [place] - [address] [place] [address]
--- OUTSIDE RECORDS SUMMARY | 2023-03-09 14:29 | External Medical Summary ---
Author Name Unknown Address Unknown Organization K01:LABORATORY [facility] [place] [address] [place] [address] Laboratory Report Ordering Provider Test Date Status CHARLENE CONTRERSA 01/17/2023 22:01:00 Final Post Filter Ionized Calcium Observation Date Value Abnormality Reference (Units ) Status Calcium.ionized [Moles/volume] in Blood drawn from CRRT circuit 01/17/2023 22:01:00 0.37 0.25-0.50 (mmol/L) Final Performing Location LABORATORY [facility] [place] - [address] [place] [address]
--- OUTSIDE RECORDS SUMMARY | 2023-03-09 14:29 | External Medical Summary ---
Author Name Unknown Address Unknown Organization K01:LABORATORY [facility] [place] - [address] [place] [address] Laboratory Report Ordering Provider Test Date Status SONYA FLOYD 01/17/2023 04:15:23 Final Observation Date Value Abnormality Reference (Units ) Status BUN 01/17/2023 04:15:23 6 6-20 (mg/dL) Final Creatinine 01/17/2023 04:15:23 0.8 0.5-1.0 (mg/dL) Final Glomerular filtration rate/1.73 sq M.predicted [Volume Rate/Area] in Serum, Plasma or Blood by Creatinine-based formula (CKD-EPI) 01/17/2023 04:15:23 88 >=60 (mL/min) Final eGFR is calculated based on the CKD-EPI 2020 equation SODIUM 01/17/2023 04:15:23 135 135-146 (m mol/L) Final Potassium 01/17/2023 04:15:23 3.8 3.5-5.1 (m mol/L) Final Cl 01/17/2023 04:15:23 98 98-107 (mm ol/L) Final CO2 01/17/2023 04:15:23 22 22-32 (mmo l/L) Final Anion gap 01/17/2023 04:15:23 15 7-15 (mmol /L) Final Glucose 01/17/2023 04:15:23 116 70-120 (mg /dL) Final Calcium 01/17/2023 04:15:23 9.3 8.4-10.2 ( mg/dL) Final Performing Location LABORATORY [facility] [place] - [facility] [address] [place] [address]
--- OUTSIDE RECORDS SUMMARY | 2023-03-09 14:29 | External Medical Summary ---
Author Name Unknown Address Unknown Organization K01:[place] [facility] [place] [address] [place] [address] Laboratory Report Ordering Provider Test Date Status CHARLENE CONTRERAS 01/17/2023 16:09:24 Final CRRT Labs: Check at initiati on of CRRT, One hour after CRRT and Every 6 hours
Labs to be Drawn Peripherally
Send in a separate tube. Observation Date Value Abnormality Reference (Units ) Status Calcium.ionized [Moles/volume] in Blood by Ion-selective membrane electrode (ISE) 01/17/2023 16:09:24 0.99 Below low normal 1.13-1.32 (mmol/L) Final Performing Location [place] [facility] [place] [address] [place] [address]
--- OUTSIDE RECORDS SUMMARY | 2023-03-09 14:29 | External Medical Summary ---
Author Name Unknown Address Unknown Organization K01:[place] [facility] [place] [address] [place] [address] Laboratory Report Ordering Provider Test Date Status DEBBIE LEHMAN 01/17/2023 07:54:16 Final Observation Date Value Abnormality Reference (Units ) Status SARS-CoV-2 (COVID-19) Ag [Presence] in Upper respiratory specimen by Immunoassay 01/17/2023 07:54:16 Not Detected Not Detected Final SARS-CoV-2 antigen was not d etected. A negative test does not rule out COVID-19 infection. If you have had exposure to someone with known or possible COVID-19, please continue to quarantine from others despite negative test. Please continue to mask and consider re-testing by PCR if symptoms develop. Performing Location LAB[place]ORY [facility] [place] [address] [place] [address]
--- OUTSIDE RECORDS SUMMARY | 2023-03-09 14:29 | External Medical Summary ---
Author Name Unknown Address Unknown Organization K01:LABORATORY [facility] [place] - [address] [address] Laboratory Report Ordering Provider Test Date Status LESA JEAN 01/17/2023 19:59:41 Final Observation Date Value Abnormality Reference (Units ) Status Lactic Acid 01/17/2023 19:59:41 1.7 0.4-2.0 (mmol/L) Final Performing Location LABORATORY [facility] - [address] [place] [address]
--- OUTSIDE RECORDS SUMMARY | 2023-03-09 14:29 | External Medical Summary ---
Author Name Unknown Address Unknown Organization K01:LABORATORY [facility] [place] - [address] [address] Laboratory Report Ordering Provider Test Date Status CHARLENE CONTRERAS 01/17/2023 14:48:18 Final CRRT Labs: Check at initiati on of CRRT, One hour after CRRT and Every 6 hours
Labs to be Drawn Peripherally Observation Date Value Abnormality Reference (Units ) Status Phosphate 01/17/2023 14:48:18 3.3 2.5-4.8 (m g/dL) Final Performing Location LABORATORY [facility] [place] - [address] [place] [address]
--- OUTSIDE RECORDS SUMMARY | 2023-03-09 14:29 | External Medical Summary ---
Author Name Unknown Address Unknown Organization [id number]:LABORATORY [facility] [place] - [address] [place] [address] Laboratory Report Ordering Provider Test Date Status CHARLENE CONTRERAS 01/17/2023 14:48:18 Final Post Filter Ionized Calcium Observation Date Value Abnormality Reference (Units ) Status Calcium.ionized [Moles/volume] in Blood drawn from CRRT circuit 01/17/2023 14:48:18 0.36 0.25-0.50 (mmol/L) Final Performing Location LABORATORY [facility] [place] - [address] [place] [address]
--- OUTSIDE RECORDS SUMMARY | 2023-03-09 14:29 | External Medical Summary ---
Author Name Unknown Address Unknown Organization K01:LABORATORY [facility] [place] - [address] [place] [address] Laboratory Report Ordering Provider Test Date Status CHARLENE CONTRERAS 01/17/2023 09:53:33 Final CRRT Labs: Check at initiati on of CRRT, One hour after CRRT and Every 6 hours
Labs to be Drawn Peripherally
Send in a separate tube. Observation Date Value Abnormality Reference (Units ) Status Calcium.ionized [Moles/volume] in Blood by Ion-selective membrane electrode (ISE) 01/17/2023 09:53:33 1.01 Below low normal 1.13-1.32 (mmol/L) Final Performing Location LABORATORY [facility] [place] - [address] [place] [address]
--- OUTSIDE RECORDS SUMMARY | 2023-03-09 14:29 | External Medical Summary ---
Author Name Unknown Address Unknown Organization K01:[place] [place] [facility] [address] [facility] [address] Laboratory Report Ordering Provider Test Date Status CHARLENE CONTRERAS 01/18/2023 10:30:53 Final CRRT Labs: Check at initiati on of CRRT, One hour after CRRT and Every 6 hours
Labs to be Drawn Peripherally Observation Date Value Abnormality Reference (Units ) Status BUN 01/18/2023 10:30:53 4 Below low normal 6-20 (mg/dL) Final Creatinine 01/18/2023 10:30:53 0.8 0.5-1.0 (mg/dL) Final Glomerular filtration rate/1.73 sq M.predicted [Volume Rate/Area] in Serum, Plasma or Blood by Creatinine-based formula (CKD-EPI) 01/18/2023 10:30:53 83 >=60 (mL/min) Final eGFR is calculated based on the CKD-EPI 2020 equation SODIUM 01/18/2023 10:30:53 136 135-146 (m mol/L) Final Potassium 01/18/2023 10:30:53 4.1 3.5-5.1 (m mol/L) Final Cl 01/18/2023 10:30:53 99 98-107 (mm ol/L) Final CO2 01/18/2023 10:30:53 24 22-32 (mmo l/L) Final Anion gap 01/18/2023 10:30:53 13 7-15 (mmol /L) Final Glucose 01/18/2023 10:30:53 105 70-120 (mg /dL) Final Calcium 01/18/2023 10:30:53 9.6 8.4-10.2 ( mg/dL) Final Performing Location [facility] [place] [address] [place] [address]
--- OUTSIDE RECORDS SUMMARY | 2023-03-09 14:29 | External Medical Summary ---
Author Name Unknown Address Unknown Organization K01:LABORATORY [facility] [place] - [address] [address] Laboratory Report Ordering Provider Test Date Status CHARLENE CONTRERAS 01/17/2023 04:15:23 Final CRRT Labs: check once daily if not done already
Labs to be Drawn Peripherally Observation Date Value Abnormality Reference (Units ) Status WBC, Total 01/17/2023 04:15:23 6.63 4.00-10.80 (K/uL) Final RBC 01/17/2023 04:15:23 2.43 3.85-5.15 (M/uL) Final Hemoglobin 01/17/2023 04:15:23 7.5 Below low normal 12.0-15.3 (g/dL) Final HCT 01/17/2023 04:15:23 23.6 Below low normal 36.0-45.2 (%) Final MCV 01/17/2023 04:15:23 97.1 81.5-97.5 (fL) Final MCH 01/17/2023 04:15:23 30.9 27.0-34.0 (pg) Final MCHC 01/17/2023 04:15:23 31.8 32.0-36.0 (g/dL) Final RDW 01/17/2023 04:15:23 19.7 11.5-15.5 (%) Final Platelets 01/17/2023 04:15:23 134 Below low normal 140-400 (K/uL) Final MPV 01/17/2023 04:15:23 10.1 6.6-11.1 (fL) Final Nucleated erythrocytes/100 leukocytes [Ratio] in Blood by Automated count 01/17/2023 04:15:23 0 <=0 (/100 WBCs) Final Performing Location LABORATORY [facility] [place] - [address] [place] [address]
--- OUTSIDE RECORDS SUMMARY | 2023-03-09 14:29 | External Medical Summary ---
Author Name Unknown Address Unknown Organization K01:[facility] [place] [facility] [address] [place] [address] Laboratory Report Ordering Provider Test Date Status CHARLENE CONTRERAS 01/18/2023 04:14:10 Final CRRT Labs: check once daily if not done already
Labs to be Drawn Peripherally

Anticoagulation may affect testing. Refer to [facility] Test Catalog for a list of effects. Observation Date Value Abnormality Reference (Units ) Status aPTT panel - Platelet poor plasma 01/18/2023 04:14:10 37 21-38 (seconds) Final Performing Location LABORATORY [facility] [place] - [facility] [address] [facility] [address]
--- OUTSIDE RECORDS SUMMARY | 2023-03-09 14:29 | External Medical Summary ---
Author Name Unknown Address Unknown Organization K01:[place] [facility] [place] [address] [place] [address] Laboratory Report Ordering Provider Test Date Status CHARLENE CONTRERAS 01/17/2023 09:53:33 Final CRRT Labs: Check at initiati on of CRRT, One hour after CRRT and Every 6 hours
Labs to be Drawn Peripherally Observation Date Value Abnormality Reference (Units ) Status BUN 01/17/2023 09:53:33 5 Below low normal 6-20 (mg/dL) Final Creatinine 01/17/2023 09:53:33 0.7 0.5-1.0 (mg/dL) Final Glomerular filtration rate/1.73 sq M.predicted [Volume Rate/Area] in Serum, Plasma or Blood by Creatinine-based formula (CKD-EPI) 01/17/2023 09:53:33 >90 >=60 (mL/min) Final eGFR is calculated based on the CKD-EPI 2020 equation SODIUM 01/17/2023 09:53:33 135 135-146 (m mol/L) Final Potassium 01/17/2023 09:53:33 3.7 3.5-5.1 (m mol/L) Final Cl 01/17/2023 09:53:33 99 98-107 (mm ol/L) Final CO2 01/17/2023 09:53:33 22 22-32 (mmo l/L) Final Anion gap 01/17/2023 09:53:33 14 7-15 (mmol /L) Final Glucose 01/17/2023 09:53:33 123 Above high normal 70 -120 (mg/dL) Final Calcium 01/17/2023 09:53:33 9.2 8.4-10.2 ( mg/dL) Final Performing Location [place] [facility] [place] [address] [place] [address]
--- OUTSIDE RECORDS SUMMARY | 2023-03-09 14:29 | External Medical Summary ---
Author Name Unknown Address Unknown Organization K01:LABORATORY [facility] [place] - [address] [address] Laboratory Report Ordering Provider Test Date Status CHARLENE CONTRERAS 01/17/2023 09:53:33 Final CRRT Labs: Check at initiati on of CRRT, One hour after CRRT and Every 6 hours
Labs to be Drawn Peripherally Observation Date Value Abnormality Reference (Units ) Status Phosphate 01/17/2023 09:53:33 3.0 2.5-4.8 (m g/dL) Final Performing Location LABORATORY [facility] [place] - [address] [place] [address]
--- OUTSIDE RECORDS SUMMARY | 2023-03-09 14:29 | External Medical Summary ---
Author Name Unknown Address Unknown Organization K01:[place] [place] [address] [place] [address] Laboratory Report Ordering Provider Test Date Status CHARLENE CONTRERAS 01/17/2023 16:09:24 Final Post Filter Ionized Calcium Observation Date Value Abnormality Reference (Units ) Status Calcium.ionized [Moles/volume] in Blood drawn from CRRT circuit 01/17/2023 16:09:24 0.33 0.25-0.50 (mmol/L) Final Performing Location [facility] [place] [address] [place] [address]
--- OUTSIDE RECORDS SUMMARY | 2023-03-09 14:29 | External Medical Summary ---
Author Name Unknown Address Unknown Organization K01:[facility] [place] - [address] [place] [address] Laboratory Report Ordering Provider Test Date Status LESA JEAN 01/18/2023 08:44:47 Final Observation Date Value Abnormality Reference (Units ) Status Lactic Acid 01/18/2023 08:44:47 0.7 0.4-2.0 (mmol/L) Final Performing Location LABORATORY [facility] - [address] [place] [address]
--- OUTSIDE RECORDS SUMMARY | 2023-03-09 14:29 | External Medical Summary ---
Author Name Unknown Address Unknown Organization K01:[facility]ORY [facility] [place] [address] [place] [address] Laboratory Report Ordering Provider Test Date Status CHARLENE CONTRERAS 01/17/2023 09:54:32 Final Post Filter Ionized Calcium Observation Date Value Abnormality Reference (Units ) Status Calcium.ionized [Moles/volume] in Blood drawn from CRRT circuit 01/17/2023 09:54:32 0.32 0.25-0.50 (mmol/L) Final Performing Location [facility] [place] [address] [place] [address]
--- OUTSIDE RECORDS SUMMARY | 2023-03-09 14:30 | External Medical Summary ---
Author Name Unknown Address Unknown Organization K01:LAB[facility]ATORY [facility] [place] - [address] [place] [address] Laboratory Report Ordering Provider Test Date Status CHARLENE CONTRERAS 01/16/2023 10:18:20 Final Post Filter Ionized Calcium Observation Date Value Abnormality Reference (Units ) Status Calcium.ionized [Moles/volume] in Blood drawn from CRRT circuit 01/16/2023 10:18:20 0.36 0.25-0.50 (mmol/L) Final Performing Location LABORATORY [facility] [place] - [address] [place] [address]
--- OUTSIDE RECORDS SUMMARY | 2023-03-09 14:30 | External Medical Summary ---
Author Name Unknown Address Unknown Organization K01:LABORATORY [facility] - [address] [place] [address] Laboratory Report Ordering Provider Test Date Status SONYA FLOYD 01/16/2023 03:35:19 Final Observation Date Value Abnormality Reference (Units ) Status Phosphate 01/16/2023 03:35:19 4.0 2.5-4.8 (m g/dL) Final Performing Location LABORATORY [facility] - [address] [place] [address]
--- OUTSIDE RECORDS SUMMARY | 2023-03-09 14:30 | External Medical Summary ---
Author Name Unknown Address Unknown Organization K01:LABORATORY [facility] [place] - [address] [place] [address] Laboratory Report Ordering Provider Test Date Status CHARLENE CONTRERAS 01/16/2023 16:27:48 Final Post Filter Ionized Calcium Observation Date Value Abnormality Reference (Units ) Status Calcium.ionized [Moles/volume] in Blood drawn from CRRT circuit 01/16/2023 16:27:48 0.34 0.25-0.50 (mmol/L) Final Performing Location LABORATORY [facility] [place] - [address] [place] [address]
--- OUTSIDE RECORDS SUMMARY | 2023-03-09 14:30 | External Medical Summary ---
Author Name Unknown Address Unknown Organization K01:[place] [place] [address] [place] [address] Laboratory Report Ordering Provider Test Date Status DEBBIE LEHMAN 01/16/2023 09:24:21 Final Observation Date Value Abnormality Reference (Units ) Status SARS-CoV-2 (COVID-19) Ag [Presence] in Upper respiratory specimen by Immunoassay 01/16/2023 09:24:21 Not Detected Not Detected Final SARS-CoV-2 antigen was not d etected. A negative test does not rule out COVID-19 infection. If you have had exposure to someone with known or possible COVID-19, please continue to quarantine from others despite negative test. Please continue to mask and consider re-testing by PCR if symptoms develop. Performing Location [facility] [place] [address] [place] [address]
--- OUTSIDE RECORDS SUMMARY | 2023-03-09 14:30 | External Medical Summary ---
Author Name Unknown Address Unknown Organization K01:LABORATORY [facility] - [address] [address] Laboratory Report Ordering Provider Test Date Status SONYA FLOYD 01/17/2023 04:15:23 Final Observation Date Value Abnormality Reference (Units ) Status Magnesium 01/17/2023 04:15:23 2.0 1.5-2.6 (m g/dL) Final Performing Location LABORATORY [facility] - [address] [place] [address]
--- OUTSIDE RECORDS SUMMARY | 2023-03-09 14:30 | External Medical Summary ---
Author Name Unknown Address Unknown Organization K01:LAB[facility]ORY [facility] [place] [address] [place] [address] Laboratory Report Ordering Provider Test Date Status CHRALENE CONTRERAS 01/17/2023 04:15:23 Final CRRT Labs: Check at initiati on of CRRT, One hour after CRRT and Every 6 hours
Labs to be Drawn Peripherally
Send in a separate tube. Observation Date Value Abnormality Reference (Units ) Status Calcium.ionized [Moles/volume] in Blood by Ion-selective membrane electrode (ISE) 01/17/2023 04:15:23 1.05 Below low normal 1.13-1.32 (mmol/L) Final Performing Location LABOR[facility]ORY [facility] [place] [address] [place] [address]
--- OUTSIDE RECORDS SUMMARY | 2023-03-09 14:30 | External Medical Summary ---
Author Name Unknown Address Unknown Organization K01:[place] [facility] [place] [address] [place] [address] Laboratory Report Ordering Provider Test Date Status CHARLENE CONTRERAS 01/16/2023 10:18:20 Final CRRT Labs: Check at initiati on of CRRT, One hour after CRRT and Every 6 hours
Labs to be Drawn Peripherally Observation Date Value Abnormality Reference (Units ) Status Phosphate 01/16/2023 10:18:20 3.3 2.5-4.8 (m g/dL) Final Performing Location [place] [facility] [place] [address] [place] [address]
--- OUTSIDE RECORDS SUMMARY | 2023-03-09 14:30 | External Medical Summary ---
Author Name Unknown Address Unknown Organization K01:LABORATORY [facility] [place] - [facility] [address] [place] [address] Laboratory Report Ordering Provider Test Date Status SONYA FLOYD 01/16/2023 03:35:19 Final Observation Date Value Abnormality Reference (Units ) Status BUN 01/16/2023 03:35:19 5 Below low normal 6-20 (mg/dL) Final Creatinine 01/16/2023 03:35:19 0.9 0.5-1.0 (mg/dL) Final Glomerular filtration rate/1.73 sq M.predicted [Volume Rate/Area] in Serum, Plasma or Blood by Creatinine-based formula (CKD-EPI) 01/16/2023 03:35:19 78 >=60 (mL/min) Final eGFR is calculated based on the CKD-EPI 2020 equation SODIUM 01/16/2023 03:35:19 136 135-146 (m mol/L) Final Potassium 01/16/2023 03:35:19 3.8 3.5-5.1 (m mol/L) Final Cl 01/16/2023 03:35:19 99 98-107 (mm ol/L) Final CO2 01/16/2023 03:35:19 21 Below low normal 22- 32 (mmol/L) Final Anion gap 01/16/2023 03:35:19 16 Above high normal 7- 15 (mmol/L) Final Glucose 01/16/2023 03:35:19 114 70-120 (mg /dL) Final Calcium 01/16/2023 03:35:19 9.5 8.4-10.2 ( mg/dL) Final Performing Location LABORATORY [facility] [place] - [facility] [address] [place] [address]
--- OUTSIDE RECORDS SUMMARY | 2023-03-09 14:30 | External Medical Summary ---
Author Name Unknown Address Unknown Organization K01:LABORATORY [facility] [place] - [address] [address] Laboratory Report Ordering Provider Test Date Status CHARLENE CONTRERAS 01/16/2023 22:12:04 Final CRRT Labs: Check at initiati on of CRRT, One hour after CRRT and Every 6 hours
Labs to be Drawn Peripherally Observation Date Value Abnormality Reference (Units ) Status Magnesium 01/16/2023 22:12:04 1.9 1.5-2.6 (m g/dL) Final Performing Location LABORATORY [facility] [place] - [address] [place] [address]
--- OUTSIDE RECORDS SUMMARY | 2023-03-09 14:30 | External Medical Summary ---
Author Name Unknown Address Unknown Organization K01:[place] [facility] [place] [facility] [address] [facility] [address] Laboratory Report Ordering Provider Test Date Status CHARLENE CONTRERAS 01/16/2023 10:18:20 Final CRRT Labs: Check at initiati on of CRRT, One hour after CRRT and Every 6 hours
Labs to be Drawn Peripherally Observation Date Value Abnormality Reference (Units ) Status BUN 01/16/2023 10:18:20 5 Below low normal 6-20 (mg/dL) Final Creatinine 01/16/2023 10:18:20 0.9 0.5-1.0 (mg/dL) Final Glomerular filtration rate/1.73 sq M.predicted [Volume Rate/Area] in Serum, Plasma or Blood by Creatinine-based formula (CKD-EPI) 01/16/2023 10:18:20 79 >=60 (mL/min) Final eGFR is calculated based on the CKD-EPI 2020 equation SODIUM 01/16/2023 10:18:20 135 135-146 (m mol/L) Final Potassium 01/16/2023 10:18:20 3.6 3.5-5.1 (m mol/L) Final Cl 01/16/2023 10:18:20 98 98-107 (mm ol/L) Final CO2 01/16/2023 10:18:20 22 22-32 (mmo l/L) Final Anion gap 01/16/2023 10:18:20 15 7-15 (mmol /L) Final Glucose 01/16/2023 10:18:20 117 70-120 (mg /dL) Final Calcium 01/16/2023 10:18:20 9.4 8.4-10.2 ( mg/dL) Final Performing Location [place] [facility] [place] [address] [place] [address]
--- OUTSIDE RECORDS SUMMARY | 2023-03-09 14:30 | External Medical Summary ---
Author Name Unknown Address Unknown Organization K01:[place] [facility] [place] [facility] [address] [facility] [address] Laboratory Report Ordering Provider Test Date Status CHARLENE CONTRERAS 01/16/2023 03:35:19 Final CRRT Labs: check once daily if not done already
Labs to be Drawn Peripherally

Warfarin Therapy
INR: 2.0-3.0 conventional anticoagulation
INR: 2.5-3.5 high intensity anticoagulation Observation Date Value Abnormality Reference (Units ) Status PT 01/16/2023 03:35:19 15.5 Above high normal 11 .6-15.2 (seconds) Final INR 01/16/2023 03:35:19 1.2 0.8-1.2 Final Performing Location [facility] [place] [facility] [address] [facility] [address]
--- OUTSIDE RECORDS SUMMARY | 2023-03-09 14:30 | External Medical Summary ---
Author Name Unknown Address Unknown Organization K01:LABORATORY [facility] [place] - [address] [place] [address] Laboratory Report Ordering Provider Test Date Status CHARLENE CONTRERAS 01/16/2023 10:18:20 Final CRRT Labs: Check at initiati on of CRRT, One hour after CRRT and Every 6 hours
Labs to be Drawn Peripherally
Send in a separate tube. Observation Date Value Abnormality Reference (Units ) Status Calcium.ionized [Moles/volume] in Blood by Ion-selective membrane electrode (ISE) 01/16/2023 10:18:20 1.00 Below low normal 1.13-1.32 (mmol/L) Final Performing Location LABORATORY [facility] [place] - [address] [place] [address]
--- OUTSIDE RECORDS SUMMARY | 2023-03-09 14:30 | External Medical Summary ---
Author Name Unknown Address Unknown Organization K01:LABORATORY [facility] - [address] [place] [address] Laboratory Report Ordering Provider Test Date Status SONYA FLOYD 01/16/2023 03:35:19 Final Observation Date Value Abnormality Reference (Units ) Status Magnesium 01/16/2023 03:35:19 1.7 1.5-2.6 (m g/dL) Final Performing Location LABORATORY [facility] - [address] [address]
--- OUTSIDE RECORDS SUMMARY | 2023-03-09 14:30 | External Medical Summary ---
Author Name Unknown Address Unknown Organization K01:[place] [facility] [place] [address] [address] Laboratory Report Ordering Provider Test Date Status LESA JEAN 01/16/2023 07:57:14 Final Observation Date Value Abnormality Reference (Units ) Status Lactic Acid 01/16/2023 07:57:14 0.7 0.4-2.0 (mmol/L) Final Performing Location LABORATORY [facility] - [address] [place] [address]
--- OUTSIDE RECORDS SUMMARY | 2023-03-09 14:30 | External Medical Summary ---
Author Name Unknown Address Unknown Organization K01:[facility]ORY [facility] [place] [address] [place] [address] Laboratory Report Ordering Provider Test Date Status CHARLENE CONTRERAS 01/16/2023 03:35:19 Final CRRT Labs: Check at initiati on of CRRT, One hour after CRRT and Every 6 hours
Labs to be Drawn Peripherally
Send in a separate tube. Observation Date Value Abnormality Reference (Units ) Status Calcium.ionized [Moles/volume] in Blood by Ion-selective membrane electrode (ISE) 01/16/2023 03:35:19 1.04 Below low normal 1.13-1.32 (mmol/L) Final Performing Location LABORATORY [facility] [place] [address] [place] [address]
--- OUTSIDE RECORDS SUMMARY | 2023-03-09 14:30 | External Medical Summary ---
Author Name Unknown Address Unknown Organization K01:[place] [facility] [place] [address] [address] Laboratory Report Ordering Provider Test Date Status CHARLENE CONTRERAS 01/16/2023 22:12:04 Final CRRT Labs: Check at initiati on of CRRT, One hour after CRRT and Every 6 hours
Labs to be Drawn Peripherally Observation Date Value Abnormality Reference (Units ) Status Phosphate 01/16/2023 22:12:04 3.5 2.5-4.8 (m g/dL) Final Performing Location [place] [place] [address] [address]
--- OUTSIDE RECORDS SUMMARY | 2023-03-09 14:30 | External Medical Summary ---
Author Name Unknown Address Unknown Organization [id number]:[facility]ORY [facility] [place] - [facility] [place] [address] Laboratory Report Ordering Provider Test Date Status CHARLENE CONTRERAS 01/17/2023 04:15:23 Final CRRT Labs: check once daily if not done already
Labs to be Drawn Peripherally Observation Date Value Abnormality Reference (Units ) Status Albumin 01/17/2023 04:15:23 3.4 Below low normal 3.8-5.0 (g/dL) Final AST (Aspartate aminotransferase) 01/17/2023 04:15:23 22 10-35 (U/L) Final Alk Phos 01/17/2023 04:15:23 150 Above high normal 35-130 (U/L) Final ALT (Alanine aminotransferase) 01/17/2023 04:15:23 23 10-35 (U/L) Final Bilirubin, Total 01/17/2023 04:15:23 0.3 <=1.2 (mg/dL) Final Bilirubin, Direct 01/17/2023 04:15:23 <0.2 0.0-0.3 (mg/dL) Final Protein 01/17/2023 04:15:23 5.5 Below low normal 6.0-8.3 (g/dL) Final Performing Location [facility] [place] - [facility] [place] [address]
--- OUTSIDE RECORDS SUMMARY | 2023-03-09 14:30 | External Medical Summary ---
Author Name Unknown Address Unknown Organization [id number]:[place] [place] [address] [place] [address] Laboratory Report Ordering Provider Test Date Status CHARLENE CONTRERAS 01/16/2023 10:18:20 Final CRRT Labs: Check at initiati on of CRRT, One hour after CRRT and Every 6 hours
Labs to be Drawn Peripherally Observation Date Value Abnormality Reference (Units ) Status Magnesium 01/16/2023 10:18:20 1.4 Below low normal 1.5 -2.6 (mg/dL) Final Performing Location [facility] [place] [address] [place] [address]
--- OUTSIDE RECORDS SUMMARY | 2023-03-09 14:30 | External Medical Summary ---
Author Name Unknown Address Unknown Organization [id number]:[facility]ORY [facility] [place] - [facility] [place] [address] Laboratory Report Ordering Provider Test Date Status CHARLENE CONTRERAS 01/17/2023 04:15:23 Final CRRT Labs: check once daily if not done already
Labs to be Drawn Peripherally

Warfarin Therapy
INR: 2.0-3.0 conventional anticoagulation
INR: 2.5-3.5 high intensity anticoagulation Observation Date Value Abnormality Reference (Units ) Status PT 01/17/2023 04:15:23 15.1 11.6-15.2 (seconds) Final INR 01/17/2023 04:15:23 1.2 0.8-1.2 Final Performing Location [facility] [place] - [address] [place] [address]
--- OUTSIDE RECORDS SUMMARY | 2023-03-09 14:30 | External Medical Summary ---
Author Name Unknown Address Unknown Organization [id number]:LABORATORY [facility] [place] - [address] [place] [address] Laboratory Report Ordering Provider Test Date Status CHARLENE CONTRERAS 01/16/2023 03:35:19 Final Post Filter Ionized Calcium Observation Date Value Abnormality Reference (Units ) Status Calcium.ionized [Moles/volume] in Blood drawn from CRRT circuit 01/16/2023 03:35:19 0.38 0.25-0.50 (mmol/L) Final Performing Location LAB[facility]ATORY [facility] [place] - [address] [place] [address]
--- OUTSIDE RECORDS SUMMARY | 2023-03-09 14:30 | External Medical Summary ---
Author Name Unknown Address Unknown Organization [id number]:[facility] [place] [address] [place] [address] Laboratory Report Ordering Provider Test Date Status ZACHARIAH DAVILA 01/16/2023 16:27:48 Final Observation Date Value Abnormality Reference (Units ) Status Oxygen saturation in Venous blood 01/16/2023 16:27:48 94.8 Above high normal 40.0-85.0 (%) Final Performing Location [facility] [place] [address] [place] [address]
--- OUTSIDE RECORDS SUMMARY | 2023-03-09 14:30 | External Medical Summary ---
Author Name Unknown Address Unknown Organization [id number]:[facility]ORY [facility] [place] - [address] [address] Laboratory Report Ordering Provider Test Date Status CHARLENE CONTRERAS 01/16/2023 16:27:48 Final CRRT Labs: Check at initiati on of CRRT, One hour after CRRT and Every 6 hours
Labs to be Drawn Peripherally Observation Date Value Abnormality Reference (Units ) Status BUN 01/16/2023 16:27:48 5 Below low normal 6-20 (mg/dL) Final Creatinine 01/16/2023 16:27:48 0.8 0.5-1.0 (mg/dL) Final Glomerular filtration rate/1.73 sq M.predicted [Volume Rate/Area] in Serum, Plasma or Blood by Creatinine-based formula (CKD-EPI) 01/16/2023 16:27:48 85 >=60 (mL/min) Final eGFR is calculated based on the CKD-EPI 2020 equation SODIUM 01/16/2023 16:27:48 135 135-146 (m mol/L) Final Potassium 01/16/2023 16:27:48 3.1 Below low normal 3.5 -5.1 (mmol/L) Final Cl 01/16/2023 16:27:48 98 98-107 (mm ol/L) Final CO2 01/16/2023 16:27:48 23 22-32 (mmo l/L) Final Anion gap 01/16/2023 16:27:48 14 7-15 (mmol /L) Final Glucose 01/16/2023 16:27:48 113 70-120 (mg /dL) Final Calcium 01/16/2023 16:27:48 9.0 8.4-10.2 ( mg/dL) Final Performing Location [facility] [place] - [address] [place] [address]
--- OUTSIDE RECORDS SUMMARY | 2023-03-09 14:30 | External Medical Summary ---
Author Name Unknown Address Unknown Organization K01:LAB[facility]ATORY [facility] [place] - [address] [place] [address] Laboratory Report Ordering Provider Test Date Status LESA JEAN 01/16/2023 20:34:41 Final Observation Date Value Abnormality Reference (Units ) Status Lactic Acid 01/16/2023 20:34:41 1.3 0.4-2.0 (mmol/L) Final Performing Location LABORATORY [facility] - [address] [place] [address]
--- OUTSIDE RECORDS SUMMARY | 2023-03-09 14:30 | External Medical Summary ---
Author Name Unknown Address Unknown Organization K01:LAB[facility]ATORY [facility] [place] - [address] [place] [address] Laboratory Report Ordering Provider Test Date Status CHARLENE CONTRERAS 01/16/2023 22:12:04 Final Post Filter Ionized Calcium Observation Date Value Abnormality Reference (Units ) Status Calcium.ionized [Moles/volume] in Blood drawn from CRRT circuit 01/16/2023 22:12:04 0.38 0.25-0.50 (mmol/L) Final Performing Location [facility] [place] - [address] [place] [address]
--- OUTSIDE RECORDS SUMMARY | 2023-03-09 14:30 | External Medical Summary ---
Author Name Unknown Address Unknown Organization K01:[facility] [place] [address] [place] [address] Laboratory Report Ordering Provider Test Date Status CHARLENE CONTRERAS 01/16/2023 16:27:48 Final CRRT Labs: Check at initiati on of CRRT, One hour after CRRT and Every 6 hours
Labs to be Drawn Peripherally
Send in a separate tube. Observation Date Value Abnormality Reference (Units ) Status Calcium.ionized [Moles/volume] in Blood by Ion-selective membrane electrode (ISE) 01/16/2023 16:27:48 1.00 Below low normal 1.13-1.32 (mmol/L) Final Performing Location [facility] [place] [address] [place] [address]
--- OUTSIDE RECORDS SUMMARY | 2023-03-09 14:30 | External Medical Summary ---
Author Name Unknown Address Unknown Organization K01:[facility] [place] [address] [place] [address] Laboratory Report Ordering Provider Test Date Status CHARLENE CONTRERAS 01/16/2023 22:12:04 Final CRRT Labs: Check at initiati on of CRRT, One hour after CRRT and Every 6 hours
Labs to be Drawn Peripherally
Send in a separate tube. Observation Date Value Abnormality Reference (Units ) Status Calcium.ionized [Moles/volume] in Blood by Ion-selective membrane electrode (ISE) 01/16/2023 22:12:04 1.05 Below low normal 1.13-1.32 (mmol/L) Final Performing Location [facility] [place] [address] [place] [address]
--- OUTSIDE RECORDS SUMMARY | 2023-03-09 14:30 | External Medical Summary ---
Author Name Unknown Address Unknown Organization K01:[facility] [place] - [facility] [address] [place] [address] Laboratory Report Ordering Provider Test Date Status CHARLENE CONTRERAS 01/16/2023 03:35:19 Final CRRT Labs: check once daily if not done already
Labs to be Drawn Peripherally Observation Date Value Abnormality Reference (Units ) Status Albumin 01/16/2023 03:35:19 3.5 Below low normal 3.8-5.0 (g/dL) Final AST (Aspartate aminotransferase) 01/16/2023 03:35:19 26 10-35 (U/L) Final Alk Phos 01/16/2023 03:35:19 134 Above high normal 35-130 (U/L) Final ALT (Alanine aminotransferase) 01/16/2023 03:35:19 22 10-35 (U/L) Final Bilirubin, Total 01/16/2023 03:35:19 0.4 <=1.2 (mg/dL) Final Bilirubin, Direct 01/16/2023 03:35:19 <0.2 0.0-0.3 (mg/dL) Final Protein 01/16/2023 03:35:19 5.3 Below low normal 6.0-8.3 (g/dL) Final Performing Location [facility] [place] - [facility] [place] [address]
--- OUTSIDE RECORDS SUMMARY | 2023-03-09 14:30 | External Medical Summary ---
Author Name Unknown Address Unknown Organization K01:[facility] [place] - [facility] [address] [facility] [address] Laboratory Report Ordering Provider Test Date Status DEBBIE LEHMAN 01/16/2023 03:35:19 Final Observation Date Value Abnormality Reference (Units ) Status WBC, Total 01/16/2023 03:35:19 9.68 4.00-10.80 (K/uL) Final RBC 01/16/2023 03:35:19 2.51 3.85-5.15 (M/uL) Final Hemoglobin 01/16/2023 03:35:19 7.6 Below low normal 12.0-15.3 (g/dL) Final HCT 01/16/2023 03:35:19 23.6 Below low normal 36.0-45.2 (%) Final MCV 01/16/2023 03:35:19 94.0 81.5-97.5 (fL) Final MCH 01/16/2023 03:35:19 30.3 27.0-34.0 (pg) Final MCHC 01/16/2023 03:35:19 32.2 32.0-36.0 (g/dL) Final RDW 01/16/2023 03:35:19 19.9 11.5-15.5 (%) Final Platelets 01/16/2023 03:35:19 154 140-400 (K/uL) Final MPV 01/16/2023 03:35:19 10.4 6.6-11.1 (fL) Final Nucleated erythrocytes/100 leukocytes [Ratio] in Blood by Automated count 01/16/2023 03:35:19 0 <=0 (/100 WBCs) Final Performing Location LAB[facility] [place] - [facility] [address] [place] [address]
--- OUTSIDE RECORDS SUMMARY | 2023-03-09 14:31 | External Medical Summary ---
Author Name Unknown Address Unknown Organization K01:LAB[facility]ORY [facility] [place] - [address] [place] [address] Laboratory Report Ordering Provider Test Date Status LESA JEAN 01/15/2023 09:49:28 Final Observation Date Value Abnormality Reference (Units ) Status Lactic Acid 01/15/2023 09:49:28 0.8 0.4-2.0 (mmol/L) Final Performing Location LABORATORY [facility] - [address] [place] [address]
--- OUTSIDE RECORDS SUMMARY | 2023-03-09 14:31 | External Medical Summary | Summary of Care ---
Author Name Unknown Organization [facility] Address [address] [place] [address] Phone [phone] Care Team Providers Care Telephone Clerks Supervisor Name Role Phone Mallika Sanderson MD Primary Care Provide r Reason for Visit * Reason Onset Date Comments Appointment 12/04/2022 Encounter Details Date Type Department Care Team Description 12/04/2022 Telephone Cardiology, [facility] [address] [place] [address] [employer] [facility] [address] [place] [address] Appointment Allergies No known active allergiesdocumented as of this encounter (statuses as of 01/15/2023) Medications Medication Sig Dispensed Refills Start Date End Date Status NEBULIZER COMPRESSOR MISCIndications:C OPD, severity to be determined (HCC) Use as directed 1 Each 1 02/23/2012 Suspended Additional Information NEBULIZER/TUBING/ MOUTHPIECE KITIndications:CO PD, severity to be determined (HCC) use as directed 1 Kit 1 02/23/2012 Suspended Additional Information COMBIVENT 18-103 MCG/ACT IN AEROIndications:C OPD, moderate (HCC) Two puffs by mouth 4 times a day 1 Inhaler 11 03/28/2012 Suspended Additional Information Patient taking differently: (No route reported), Reported on 01/08/2023 OXYGENIndications :Calculus of kidney,Hypothyroi dism 3 liters during the night 1 Each 5 01/07/2013 Suspended Additional Information Patient taking differently: 3 liters continuously, Reported on 11/02/2015 pantoprazole (PROTONIX) 40 MG TBEC Take 1 Tab by mouth daily. 0 12/03/2014 Suspended albuterol (PROVENTIL HFA) 108 (90 BASE) MCG/ACT inhalerIndication s:COPD, moderate (HCC) Inhale 2 Puffs by mouth every 4 hours. 1 Inhaler 11 10/01/2015 Suspended Additional Information Patient taking differently:2 Puff [id number] PRN, Reported on 12/07/2015 levothyroxine (LEVOXYL) 175 MCG Tablet Take 1 Tablet by mouth daily first thing in the morning. 0 Suspended Cholecalciferol (VITAMIN D3) 1000 UNITS CAPS Take by mouth daily. Patient not taking due to constipation 0 Suspended LORazepam (ATIVAN) 1 MG Tablet Take 1 mg by mouth 2 times a day as needed. 0 11/24/2015 Suspended midodrine HCl (PROAMATINE) 10 MG Tablet Take 10 mg by mouth 3 times a day. 0 01/13/2018 Suspended Oxycodone-Acetami nophen 10-325 MG per tablet Take 1 Tab by mouth every 12 hours as needed. 0 03/14/2018 Suspended gabapentin (NEURONTIN) 300 MG Capsule Take 1 Capsule by mouth in the morning. 90 Cap 5 03/21/2018 Suspended mirtazapine (REMERON) 15 MG TabletIndications :Moderate episode of recurrent major depressive disorder (HCC) Take 1 Tab by mouth at bedtime. 30 Tab 5 03/21/2018 Suspended Additional Information arformoterol Tartrate (BROVANA) 15 MCG/2ML neulizer solutionIndicatio ns:COPD, moderate (HCC) 15 microgram twice daily by nebulizer 1 Vial 5 03/21/2018 Suspended Additional Information albuterol sulfate (PROVENTIL) (2.5 MG/3ML) 0.083% nebulizer solution Inhale 1 Vial via nebulizer every 4 hours as needed for Wheezing. 120 Vial 11 06/28/2018 Suspended Hospital, Clinic, or Other Facility Administered Medication Ordered Dose Route Frequency Start Date End Date Status albuterol sulfate (PROVENTIL) (2.5 MG/3ML) 0.083% inhalation solution 2.5 mgIndications:COPD, severity to be determined (HCC) 2.5 mg NEBULIZER Q4H PRN 06/28/2018 Active documented as of this encounter (statuses as of 01/15/2023) Active Problems Problem Noted Date Septic shock 01/11/2023 Acute renal failure superimposed on marble carver choco kidney disease 01/08/2023 Encephalopathy acute 01/08/2023 History of mechanical ventilation 2022 Heart failure, systolic and diastolic, 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 01/08/2023 Shock 01/08/2023 ESRD on dialysis 01/07/2023 Pneumonia due to COVID-19 virus 01/07/20 23 Hyperkalemia 01/06/2023 Cardiogenic shock 01/06/[address] fistula malfunction 01/07/20 23 COPD, group B, by GOLD 2017 classificati on 09/16/2018 Overview: Per COPD GOLD Classification CHB (complete heart block) 05/28/2018 Generalized abdominal pain 10/14/2015 Cardiac pacemaker in situ 12/03/2014 S/P MVR (mitral valve repair) 02/24/2014 S/P TVR (tricuspid valve repair) 014 Preoperative cardiovascular examination 02/24/2014 Opiate overdose 05/20/2013 Central hypoventilation syndrome 014 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 Respiratory failure, [id number] Unresponsive episode 04/11/2013 S/P mitral valve repair 01/27/2013 S/P tricuspid valve repair 01/27/2013 Coagulase negative Staphylococcus bacter emia 10/01/2012 Severe mitral regurgitation 08/13/2012 Heart failure due to valvular disease Tricuspid valve regurgitation 08/13/2012 SOB (shortness of breath) 08/13/2012 Pulmonary hypertension 08/13/2012 Carotid bruit present 08/13/2012 MEDICATION USE AGREEMENT 07/17/2012 Dialysis patient 07/04/2012 Sleep apnea 12/20/2011 Dermatitis 10/25/2011 Anxiety state 10/25/2011 OBESITY, BMI 30-34 (SEE ACTUAL BMI) 06/08 Overview: Per Obesity Taxonomy Dyslipidemia, goal LDL below 100 009 Overview: Per Lipid Taxonomy. Kidney disease, chronic, stage IV (GFR 1 5-29 ml/min) 11/18/2008 Overview: Modified by CKD Protocol #1. Mixed, or nondependent drug abuse 2007 Incisional hernia 07/18/2005 BACKACHE NOS 04/07/2000 Major depressive disorder 04/07/2000 Overview: ICD-10 update of inactive term Renal colic 04/07/2000 Hypothyroidism 03/13/2000 Polycystic kidney 12/07/1999 Overview: ICD-10 update of inactive term Calculus of kidney 12/06/1999 documented as of this encounter (statuses as of 01/15/2023) Resolved Problems Problem Noted Date Resolved Date Heart block 02/04/2013 02/12/2018 [employer] Other*[id number] 201205/16/2016 Overview: Study Title: Genomic Markers for Patients with Cardiovascular Disease Project # [id number] Database Report Writer: Eduarda Mcgrath MD [phone] S/P tricuspid valve replacement 01/13/2013 01/27/2013 S/P MVR (mitral valve replacement) 12/30/2012 01/27/2013 Obesity, morbid (more than 1 00 lbs over ideal weight or BMI > 40) 07/04/2012 06/18/2018 Overview: bmi= 40.40 07/04/12 COPD, moderate 12/20/2011 09/18/2018 Overview: Per COPD GOLD Classification Type 2 diabetes mellitus wit h hemoglobin A1c goal of less than 7.0% 01/21/2009 01/12/2011 Overview: Modified per Diabetes protocol #14. ICD-10 update of inactive term Obesity, BMI not known 01/11/2009 0 Overview: Per Obesity Taxonomy Kidney disease, chronic, stage IV (GFR 15-29 ml/ min) 11/18/2008 01/11/2009 Overview: Modified by CKD Protocol #1. ADVANCE DIRECTIVE INFORMATION 11/14/2007 Overview: No, Advance Directive brochure given to patient at prior appointment. DM type 2 causing renal disease 10/30/2007 01/12/2011 Overview: Added per DM w/ renal complications protocol #4 Suicidal ideation 08/27/2007 09/21/2011 Chronic renal insufficiency 08/08/200511/07 Overview: Modified by CKD Protocol #1. Renal failure 06/30/2005 11/18/2008 Overview: Modified by CKD Protocol #1. DM type 2, not at goal 02/07/2005 9 Overview: Modified per Diabetes protocol #14. Tobacco use disorder 08/10/2003 02/07/2012 Mixed dyslipidemia 05/26/2003 03/03/2009 Overview: Per Lipid Taxonomy PURE HYPERCHOLESTEROLEM 01/19/2003 03/25/20 09 Overview: Per Lipid Taxonomy. ACUTE STRESS REACT NEC 04/07/2000 8 URIN TRACT INFECTION NOS 04/07/2000 012 Pelvic pain in female 03/13/2000 03/22/2018 Other disorder of menstruati on and other abnormal bleeding from female genital tract 02/27/2000 09/21/2011 documented as of this encounter (statuses as of 01/15/2023) Immunizations Name Administration Dates Next Due COVID-19 mRNA, LNP-s, No Pre serve, 2-Dose Series (Shippter) 07/28/2020,07/07/2020 COVID-19, LNP-s, No Preserve , Kuldip-sucrose, Ages 12+ (Pfizer) 07/19/2021 Covid-19, Mrna, Lnp-s, Pf, B ivalent, 30 Mcg, IM, 12 yrs and above (Pfizer) 03/07/2022 H1N1 2009 Influenza, IM 05/04/2009 Hepatitis B Vaccine, Recombi nant, Adjuvanted, 20 mcg/mL (Heplisav-B) 06/21/2022,04/26/2022,03/29/2022,02/22 Pneumococcal Conjugate Vacc, 13 Valent (Prevnar) 07/19/2018 Pneumococcal Polysaccharide PPV23 (Pneumovax) 10/18/2018,05/02/2013,02/14/2010,10/26 Seasonal Influenza Virus Vac cine, Unspecified Formulation 01/21/2018,01/09/2011,02/14/2010,05/04,01/28/2008,03/08/2007,02/07/2005 ,01/28/2002,03/18/2001 Seasonal Influenza, Quadriva lent, No Preserve, IM 01/21/2018 Seasonal Influenza, Split, I IV3, With Preserve, Inj 01/06/2013,12/19/2011,01/09/2011,02/14,05/04/2009,01/28/2008 TDAP (age 10 and older)(Boostrix) 03/21/2018 TDAP (age 11 and older)(Adacel) 11/05/2007 documented as of this encounter Social History Tobacco Use Types Packs/Day Years Used Date Smoking Tobacco: Light Smoker Cigarettes 0.3 26 Last attempted t o quit: 12/27/2011 Smokeless Tobacco: Never Comments:started age 17 Alcohol Use Standard Drinks/Week Comments No 0 (1 standard drink = 0.6 oz pur e alcohol) Sex Assigned at Date Recorded Not on file Job Start Date Occupation Industry Not on file Not on file Not on file documented as of this encounter Miscellaneous Notes * Telephone Encounter - RITU Grubbs - 12/04/2022 2:12 PM EDT Spoke with Sukhwinder. Pt is scheduled for both appts 02/02/23. * Telephone Encounter - Wilma Posadas RN - 12/04/2022 1:41 PM EDT Called, spoke with patient's son Sukhwinder. Aware of need for rescheduling device clinic appointment tomorrow 12/05/22 due to coverage. Son would like to attempt to schedule follow up for patient and device clinic for same day given transportation restraints. Please call marixa Pretty at [phone] to arrange both in clinic follow up and device check for same day. documented in this encounter Plan of Treatment Upcoming Encounters Date Type Specialty Care Team Description 02/02/2023 Cardiac Studies Cardiology [facility] Mirna Goyal [address] [place] [id number] 02/02/2023 Office Visit Cardiology Mila Gonsalves PA-C [address] [place] [id number] Health Maintenance Due Date Last Done Comments DISCUSS TOBACCO CESSATION (REFER TO SMARTSET #[id number]) 1965 Alpha-1 Antitrypsin 1982 Zoster Vaccines (1 of 2) 07/31/1983 PAP SMEAR-EVERY 3 YRS,AGES 18-100 02/16/2003 02/17/2000 Cologuard 2009 Fecal Occult Blood Test 2009 10/25/2007 Sigmoidoscopy 2009 Mammogram 11/04/2009 11/04/2008 Lipid Panel 12/19/2016 12/20/2011, 09/08, 01/28/2008, Additional history exists Colonoscopy 10/12/2018 10/12/2008 Colorectal Cancer Screening 10/12/2018 Depression Screening 03/21/2019 03/21/2018 COVID-19 Vaccine ( season) 2022 03/07/2022, 07/19/2021, 07/28/2020, Additional history exists Influenza Vaccine (FLU shot) (#1) 2022 01/21/2018, 01/21/2018, 01/06/2013, Additional history exists TSH 01/11/2024 01/10/2023, 12/10, 03/20/2013, Additional history exists O2 ASSESSMENT COMPLETED IN PAST YEAR FOR COPD 01/15/2024 01/15/2023 Diabetes Screening 01/15/2026 01/15/2023, 1 , 01/14/2023, Additional history exists DTaP,Tdap,and Td Vaccines (3 - Td or Tdap) 03/21/2028 03/21/2018, 11/05/2007 Pneumococcal Vaccine: Pediatrics (0 to 5 Years) and At-Risk Patients (6 to 64 Years) (4 - PPSV23 or PCV20) 2029 10/18/2018, 07/19/2018, 05/02/2013, Additional history exists Hepatitis B Completed 06/21/2022, 04/09, 03/29/2022, Additional history exists GARDASIL-HPV IMMUNIZATION SERIES Aged Out No longer eligible based on patient's age to complete this topic MENINGOCOCCAL (MENACTRA/MENVEO) Aged Out No longer eligible based on patient's age to complete this topic documented as of this encounter Medical Devices Implanted Type Area Sap Bw Developer Device Identifier Shelf Expiration Date Model / Serial / Lot Ring Tricuspid 28mm - [id number] Implanted:Qty: 1 on 12/27/2012 at OR [facility] [place] Right: Heart [employer] ARIEL 04/17/2017 [id number] / [id number] / [id number] documented as of this encounter Additional Health Concerns Infection Onset Date Last Indicated Resolved Time COVID-19 (confirmed) Comment:OSH 01/06/2023 01/08/2023 documented as of this encounter Advance Directives Latest Code Status on File Code Status Date Activated Date Inactivated Comments Full Code 01/06/2023 11:12 AM This orde r reflects the patients wishes and were consensually agreed upon. Question Answer Comments Discussion of Advance Directives occurred with: Not Discussed due to patient's condition Code Status History Code Status Date Activated Date Inactivated Comments Full Code 12/27/2012 5:04 PM 01/07/2013 4:39 PM This order reflects the patients wishes and were consensually agreed upon. Question Answer Comments Discussion of Advance Directives occurred with: Not Discussed Does the patient have a Living Will? No Does the patient have Health Care Power of Employment Specialist/Program Manager? No Care Teams Telephone Clerks Supervisor Relationship Specialty Start Date End Date Mallika Sanderson MD [address] [place] [address] PCP - General Internal Medicine 12/08/22 documented as of this encounter
--- OUTSIDE RECORDS SUMMARY | 2023-03-09 14:31 | External Medical Summary ---
Author Name Unknown Address Unknown Organization K01:LABORATORY [facility] [place] - [address] [place] [address] Laboratory Report Ordering Provider Test Date Status CHARLENE CONTRERAS 01/15/2023 21:34:17 Final CRRT Labs: Check at initiati on of CRRT, One hour after CRRT and Every 6 hours
Labs to be Drawn Peripherally
Send in a separate tube. Observation Date Value Abnormality Reference (Units ) Status Calcium.ionized [Moles/volume] in Blood by Ion-selective membrane electrode (ISE) 01/15/2023 21:34:17 0.98 Below low normal 1.13-1.32 (mmol/L) Final Performing Location LABORATORY [facility] [place] - [address] [place] [address]
--- OUTSIDE RECORDS SUMMARY | 2023-03-09 14:31 | External Medical Summary ---
Author Name Unknown Address Unknown Organization K01:[place] [facility] [place] [facility] [address] [facility] [address] Laboratory Report Ordering Provider Test Date Status IAN SANCHEZ 01/15/2023 21:44:38 Final Observation Date Value Abnormality Reference (Units ) Status WBC, Total 01/15/2023 21:44:38 12.79 Above high normal 4.00-10.80 (K/uL) Final RBC 01/15/2023 21:44:38 2.71 3.85-5.15 (M/uL) Final Hemoglobin 01/15/2023 21:44:38 8.4 Below low normal 12.0-15.3 (g/dL) Final HCT 01/15/2023 21:44:38 25.9 Below low normal 36.0-45.2 (%) Final MCV 01/15/2023 21:44:38 95.6 81.5-97.5 (fL) Final MCH 01/15/2023 21:44:38 31.0 27.0-34.0 (pg) Final MCHC 01/15/2023 21:44:38 32.4 32.0-36.0 (g/dL) Final RDW 01/15/2023 21:44:38 19.6 11.5-15.5 (%) Final Platelets 01/15/2023 21:44:38 168 140-400 (K/uL) Final MPV 01/15/2023 21:44:38 10.5 6.6-11.1 (fL) Final Nucleated erythrocytes/100 leukocytes [Ratio] in Blood by Automated count 01/15/2023 21:44:38 0 <=0 (/100 WBCs) Final Performing Location LAB[facility]ORY [facility] [place] - [facility] [address] [place] [address]
--- OUTSIDE RECORDS SUMMARY | 2023-03-09 14:31 | External Medical Summary ---
Author Name Unknown Address Unknown Organization K01:[place]ORY [facility] [place] [address] [place] [address] Laboratory Report Ordering Provider Test Date Status CHARLENE CONTRERAS 01/15/2023 04:20:43 Final Post Filter Ionized Calcium Observation Date Value Abnormality Reference (Units ) Status Calcium.ionized [Moles/volume] in Blood drawn from CRRT circuit 01/15/2023 04:20:43 0.38 0.25-0.50 (mmol/L) Final Performing Location LAB[facility]ATORY [facility] [place] [address] [place] [address]
--- OUTSIDE RECORDS SUMMARY | 2023-03-09 14:31 | External Medical Summary ---
Author Name Unknown Address Unknown Organization K01:[place]ORY [facility] [place] [address] [place] [address] Laboratory Report Ordering Provider Test Date Status CHARLENE CONTRERAS 01/15/2023 04:24:36 Final CRRT Labs: Check at initiati on of CRRT, One hour after CRRT and Every 6 hours
Labs to be Drawn Peripherally
Send in a separate tube. Observation Date Value Abnormality Reference (Units ) Status Calcium.ionized [Moles/volume] in Blood by Ion-selective membrane electrode (ISE) 01/15/2023 04:24:36 1.02 Below low normal 1.13-1.32 (mmol/L) Final Performing Location [facility]ORY [facility] [place] [address] [place] [address]
--- OUTSIDE RECORDS SUMMARY | 2023-03-09 14:31 | External Medical Summary ---
Author Name Unknown Address Unknown Organization K01:[place] [facility] [place] [address] [place] [facility] [place] [address] Laboratory Report Ordering Provider Test Date Status CHARLENE CONTRERAS 01/15/2023 04:24:36 Final CRRT Labs: check once daily if not done already
Labs to be Drawn Peripherally Observation Date Value Abnormality Reference (Units ) Status SYNC LEUKOCYTES IN BLOOD BY AUTOMATED COUNT 01/15/2023 04:24:36 9.69 4.00-10.80 (K/uL) Final Segs 01/15/2023 04:24:36 81.8 Above high normal 40.0-75.0 (%) Final Lymphs % 01/15/2023 04:24:36 9.4 Below low normal 18.0-42.0 (%) Final Monos 01/15/2023 04:24:36 6.7 1.0-11.0 (%) Final Eosinophils 01/15/2023 04:24:36 0.0 0.0-6.0 (%) Final Basos 01/15/2023 04:24:36 0.0 0.0-2.0 (%) Final Immature Granulocyte, Percent 01/15/2023 04:24:36 2.1 Above high normal 0.0-2.0 (%) Final Absolute Segs 01/15/2023 04:24:36 7.93 Above high normal 1.80-7.70 (K/uL) Final Lymphs, absolute 01/15/2023 04:24:36 0.91 Below low normal 1.00-4.80 (K/ul) Final Monos, Abs 01/15/2023 04:24:36 0.65 0.00-1.10 (K/uL) Final Eos, Abs 01/15/2023 04:24:36 0.00 0.00-0.70 (K/uL) Final Basos, Abs 01/15/2023 04:24:36 0.00 0.00-0.20 (K/uL) Final Immature Granulocytes, Number 01/15/2023 04:24:36 0.20 0.00-0.20 (K/uL) Final Performing Location [place] [facility] [place] [facility] [address] [facility] [address]
--- OUTSIDE RECORDS SUMMARY | 2023-03-09 14:31 | External Medical Summary ---
Author Name Unknown Address Unknown Organization K01:LABORATORY [place] [address] [place] [address] Laboratory Report Ordering Provider Test Date Status CHARLENE CONTRERAS 01/15/2023 09:49:08 Final CRRT Labs: Check at initiati on of CRRT, One hour after CRRT and Every 6 hours
Labs to be Drawn Peripherally
Send in a separate tube.
If the patient is to receive regional citrate anticoagulation, test POST FILTER and Peripheral Ionized Calcium. Observation Date Value Abnormality Reference (Units ) Status Calcium.ionized [Moles/volume] in Blood by Ion-selective membrane electrode (ISE) 01/15/2023 09:49:08 0.99 Below low normal 1.13-1.32 (mmol/L) Final Performing Location [place] [facility] [facility] [place] [facility] [address] [facility] [address]
--- OUTSIDE RECORDS SUMMARY | 2023-03-09 14:31 | External Medical Summary ---
Author Name Unknown Address Unknown Organization K01:LABORATORY [facility] [place] - [address] [place] [address] Laboratory Report Ordering Provider Test Date Status CHARLENE CONTRERAS 01/15/2023 15:22:21 Final CRRT Labs: Check at initiati on of CRRT, One hour after CRRT and Every 6 hours
Labs to be Drawn Peripherally
Send in a separate tube. Observation Date Value Abnormality Reference (Units ) Status Calcium.ionized [Moles/volume] in Blood by Ion-selective membrane electrode (ISE) 01/15/2023 15:22:21 0.99 Below low normal 1.13-1.32 (mmol/L) Final Performing Location LABORATORY [facility] [place] - [address] [place] [address]
--- OUTSIDE RECORDS SUMMARY | 2023-03-09 14:31 | External Medical Summary ---
Author Name Unknown Address Unknown Organization K01:[place] [facility] [place] [address] [place] [address] Laboratory Report Ordering Provider Test Date Status IAN SANCHEZ 01/16/2023 00:28:22 Final Observation Date Value Abnormality Reference (Units ) Status Lactic Acid 01/16/2023 00:28:22 0.9 0.4-2.0 (mmol/L) Final Performing Location LABORATORY [facility] - [address] [place] [address]
--- OUTSIDE RECORDS SUMMARY | 2023-03-09 14:31 | External Medical Summary ---
Author Name Unknown Address Unknown Organization K01:[place] [facility] [place] [facility] [place] [address] Laboratory Report Ordering Provider Test Date Status CHARLENE CONTRERAS 01/15/2023 04:20:43 Final CRRT Labs: check once daily if not done already
Labs to be Drawn Peripherally Observation Date Value Abnormality Reference (Units ) Status Albumin 01/15/2023 04:20:43 3.1 Below low normal 3.8-5.0 (g/dL) Final AST (Aspartate aminotransferase) 01/15/2023 04:20:43 29 10-35 (U/L) Final Alk Phos 01/15/2023 04:20:43 125 35-130 (U/L) Final ALT (Alanine aminotransferase) 01/15/2023 04:20:43 22 10-35 (U/L) Final Bilirubin, Total 01/15/2023 04:20:43 0.3 <=1.2 (mg/dL) Final Bilirubin, Direct 01/15/2023 04:20:43 <0.2 0.0-0.3 (mg/dL) Final Protein 01/15/2023 04:20:43 5.1 Below low normal 6.0-8.3 (g/dL) Final Performing Location [place] [facility] [place] [address] [place] [address]
--- OUTSIDE RECORDS SUMMARY | 2023-03-09 14:31 | External Medical Summary ---
Author Name Unknown Address Unknown Organization K01:LABORATORY [facility] [place] - [address] [place] [address] Laboratory Report Ordering Provider Test Date Status CHARLENE CONTRERAS 01/15/2023 15:22:21 Final CRRT Labs: Check at initiati on of CRRT, One hour after CRRT and Every 6 hours
Labs to be Drawn Peripherally Observation Date Value Abnormality Reference (Units ) Status Magnesium 01/15/2023 15:22:21 1.5 1.5-2.6 (m g/dL) Final Performing Location LABORATORY [facility] [place] - [address] [place] [address]
--- OUTSIDE RECORDS SUMMARY | 2023-03-09 14:31 | External Medical Summary ---
Author Name Unknown Address Unknown Organization K01:LAB[facility]ATORY [facility] [place] - [facility] [address] [facility] [place] [address] Laboratory Report Ordering Provider Test Date Status CHARLENE CONTRERAS 01/15/2023 04:20:43 Final CRRT Labs: check once daily if not done already
Labs to be Drawn Peripherally

Anticoagulation may affect testing. Refer to [facility] Test Catalog for a list of effects. Observation Date Value Abnormality Reference (Units ) Status aPTT panel - Platelet poor plasma 01/15/2023 04:20:43 38 21-38 (seconds) Final Performing Location LABORATORY [facility] [place] - [facility] [address] [facility] [address]
--- OUTSIDE RECORDS SUMMARY | 2023-03-09 14:31 | External Medical Summary ---
Author Name Unknown Address Unknown Organization K01:[place]ORY [facility] [place] [address] [place] [address] Laboratory Report Ordering Provider Test Date Status LESA JEAN 01/15/2023 20:20:35 Final Observation Date Value Abnormality Reference (Units ) Status Lactic Acid 01/15/2023 20:20:35 2.2 Above high normal 0.4-2.0 (mmol/L) Final Performing Location LAB[facility]ORY [facility] [place] [address] [place] [address]
--- OUTSIDE RECORDS SUMMARY | 2023-03-09 14:31 | External Medical Summary ---
Author Name Unknown Address Unknown Organization K01:LAB[facility]ATORY [facility] [place] - [address] [place] [address] Laboratory Report Ordering Provider Test Date Status SONYA FLOYD 01/15/2023 04:20:43 Final Observation Date Value Abnormality Reference (Units ) Status BUN 01/15/2023 04:20:43 6 6-20 (mg/dL) Final Creatinine 01/15/2023 04:20:43 0.8 0.5-1.0 (mg/dL) Final Glomerular filtration rate/1.73 sq M.predicted [Volume Rate/Area] in Serum, Plasma or Blood by Creatinine-based formula (CKD-EPI) 01/15/2023 04:20:43 80 >=60 (mL/min) Final eGFR is calculated based on the CKD-EPI 2020 equation SODIUM 01/15/2023 04:20:43 136 135-146 (m mol/L) Final Potassium 01/15/2023 04:20:43 4.1 3.5-5.1 (m mol/L) Final Cl 01/15/2023 04:20:43 100 98-107 (mm ol/L) Final CO2 01/15/2023 04:20:43 21 Below low normal 22- 32 (mmol/L) Final Anion gap 01/15/2023 04:20:43 15 7-15 (mmol /L) Final Glucose 01/15/2023 04:20:43 117 70-120 (mg /dL) Final Calcium 01/15/2023 04:20:43 9.4 8.4-10.2 ( mg/dL) Final Performing Location LABORATORY [facility] [place] - [facility] [address] [place] [address]
--- OUTSIDE RECORDS SUMMARY | 2023-03-09 14:31 | External Medical Summary ---
Author Name Unknown Address Unknown Organization : Laboratory Report Ordering Provider Test Date Status YOUNG RAY 01/15/2023 06:26:12 Final Observation Date Value Abnormality Reference (Units ) Status Glucose Point of Care 01/15/2023 06:26:12 120 70-120 (mg/dL) Final Performing Location
--- OUTSIDE RECORDS SUMMARY | 2023-03-09 14:31 | External Medical Summary ---
Author Name Unknown Address Unknown Organization K01:LABORATORY [facility] [place] - [address] [place] [address] Laboratory Report Ordering Provider Test Date Status DEBBIE LEHMAN 01/15/2023 15:29:03 Final Observation Date Value Abnormality Reference (Units ) Status Body temperature 01/15/2023 15:29:03 37.0 (C) Final pH of Arterial blood 01/15/2023 15:29:03 7.411 7.350-7.450 (units) Final Carbon dioxide [Partial pressure] in Arterial blood 01/15/2023 15:29:03 38.5 35.0-45.0 (mmHg) Final Oxygen [Partial pressure] in Arterial blood 01/15/2023 15:29:03 91.5 75.0-100.0 (mmHg) Final Base excess, Arterial 01/15/2023 15:29:03 0.0 -2.0-2.0 (mmol/L) Final Hemoglobin [Mass/volume] in Blood by Oximetry 01/15/2023 15:29:03 10.7 Below low normal 12.0-15.3 (g/dL) Final Oxyhemoglobin, Arterial (FO2HB) 01/15/2023 15:29:03 94.9 94.0-99.0 (% total Hgb) Final Carboxyhemoglobin 01/15/2023 15:29:03 1.7 Above high normal <=1.5 (% total Hgb) Final Smokers: 0-9.0 % Methemoglobin 01/15/2023 15:29:03 0.5 <=1.5 (% total Hgb) Final Deoxyhemoglobin/Hemog lobin.total in Arterial blood 01/15/2023 15:29:03 2.9 0.0-5.0 (% total Hgb) Final Oxygen content in Arterial blood 01/15/2023 15:29:03 14.4 Below low normal 15.0-24.0 (%vol) Final Oxygen/Total gas setting [Volume Fraction] Ventilator 01/15/2023 15:29:03 Not Provided (%) Final O2 FLOW, [facility] - [facility] 01/15/2023 15:29:03 Not Provided (L/min) Final Bicarbonate, Venous, POC (i-STAT) 01/15/2023 15:29:03 24.0 23.0-31.0 (mmol/L) Final Performing Location LABORATORY [facility] [place] - [address] [facility] [address]
--- OUTSIDE RECORDS SUMMARY | 2023-03-09 14:31 | External Medical Summary ---
Author Name Unknown Address Unknown Organization K01:LAB[facility]ATORY [facility] [place] - [address] [place] [address] Laboratory Report Ordering Provider Test Date Status CHARLENE CONTRERAS 01/15/2023 04:24:36 Final CRRT Labs: check once daily if not done already
Labs to be Drawn Peripherally Observation Date Value Abnormality Reference (Units ) Status WBC, Total 01/15/2023 04:24:36 9.69 4.00-10.80 (K/uL) Final RBC 01/15/2023 04:24:36 2.26 3.85-5.15 (M/uL) Final Hemoglobin 01/15/2023 04:24:36 6.9 Below lower panic limits 12.0-15.3 (g/dL) Final HCT 01/15/2023 04:24:36 21.8 Below low normal 36.0-45.2 (%) Final MCV 01/15/2023 04:24:36 96.5 81.5-97.5 (fL) Final MCH 01/15/2023 04:24:36 30.5 27.0-34.0 (pg) Final MCHC 01/15/2023 04:24:36 31.7 32.0-36.0 (g/dL) Final RDW 01/15/2023 04:24:36 18.4 11.5-15.5 (%) Final Platelets 01/15/2023 04:24:36 156 140-400 (K/uL) Final MPV 01/15/2023 04:24:36 10.8 6.6-11.1 (fL) Final Nucleated erythrocytes/100 leukocytes [Ratio] in Blood by Automated count 01/15/2023 04:24:36 0 <=0 (/100 WBCs) Final Performing Location LABORATORY [facility] [place] - [address] [place] [address]
--- OUTSIDE RECORDS SUMMARY | 2023-03-09 14:31 | External Medical Summary ---
Author Name Unknown Address Unknown Organization K01:[place] [facility] [place] [address] [place] [address] Laboratory Report Ordering Provider Test Date Status CHARLENE CONTRERAS 01/15/2023 21:34:17 Final Post Filter Ionized Calcium Observation Date Value Abnormality Reference (Units ) Status Calcium.ionized [Moles/volume] in Blood drawn from CRRT circuit 01/15/2023 21:34:17 0.36 0.25-0.50 (mmol/L) Final Performing Location [place] [facility] [place] [address] [place] [address]
--- OUTSIDE RECORDS SUMMARY | 2023-03-09 14:31 | External Medical Summary ---
Author Name Unknown Address Unknown Organization K01:LABORATORY [facility] - [address] [place] [address] Laboratory Report Ordering Provider Test Date Status SONYA FLOYD 01/15/2023 04:20:43 Final Observation Date Value Abnormality Reference (Units ) Status Phosphate 01/15/2023 04:20:43 2.7 2.5-4.8 (m g/dL) Final Performing Location LABORATORY [facility] - [address] [place] [address]
--- OUTSIDE RECORDS SUMMARY | 2023-03-09 14:31 | External Medical Summary ---
Author Name Unknown Address Unknown Organization K01:LABORATORY [facility] [place] - [address] [facility] [address] Laboratory Report Ordering Provider Test Date Status CHARLENE CONTRERAS 01/15/2023 15:22:21 Final CRRT Labs: Check at initiati on of CRRT, One hour after CRRT and Every 6 hours
Labs to be Drawn Peripherally Observation Date Value Abnormality Reference (Units ) Status BUN 01/15/2023 15:22:21 6 6-20 (mg/dL) Final Creatinine 01/15/2023 15:22:21 0.8 0.5-1.0 (mg/dL) Final Glomerular filtration rate/1.73 sq M.predicted [Volume Rate/Area] in Serum, Plasma or Blood by Creatinine-based formula (CKD-EPI) 01/15/2023 15:22:21 89 >=60 (mL/min) Final eGFR is calculated based on the CKD-EPI 2020 equation SODIUM 01/15/2023 15:22:21 138 135-146 (m mol/L) Final Potassium 01/15/2023 15:22:21 3.7 3.5-5.1 (m mol/L) Final Cl 01/15/2023 15:22:21 101 98-107 (mm ol/L) Final CO2 01/15/2023 15:22:21 21 Below low normal 22- 32 (mmol/L) Final Anion gap 01/15/2023 15:22:21 16 Above high normal 7- 15 (mmol/L) Final Glucose 01/15/2023 15:22:21 105 70-120 (mg /dL) Final Calcium 01/15/2023 15:22:21 8.9 8.4-10.2 ( mg/dL) Final Performing Location LABORATORY [facility] [place] - [address] [place] [address]
--- OUTSIDE RECORDS SUMMARY | 2023-03-09 14:31 | External Medical Summary ---
Author Name Unknown Address Unknown Organization K01:LABORATORY [facility] [place] - [address] [facility] [address] Laboratory Report Ordering Provider Test Date Status CHARLENE CONTRERAS 01/15/2023 09:49:28 Final CRRT Labs: Check at initiati on of CRRT, One hour after CRRT and Every 6 hours
Labs to be Drawn Peripherally Observation Date Value Abnormality Reference (Units ) Status BUN 01/15/2023 09:49:28 6 6-20 (mg/dL) Final Creatinine 01/15/2023 09:49:28 0.8 0.5-1.0 (mg/dL) Final Glomerular filtration rate/1.73 sq M.predicted [Volume Rate/Area] in Serum, Plasma or Blood by Creatinine-based formula (CKD-EPI) 01/15/2023 09:49:28 87 >=60 (mL/min) Final eGFR is calculated based on the CKD-EPI 2020 equation SODIUM 01/15/2023 09:49:28 137 135-146 (m mol/L) Final Potassium 01/15/2023 09:49:28 3.6 3.5-5.1 (m mol/L) Final Cl 01/15/2023 09:49:28 100 98-107 (mm ol/L) Final CO2 01/15/2023 09:49:28 22 22-32 (mmo l/L) Final Anion gap 01/15/2023 09:49:28 15 7-15 (mmol /L) Final Glucose 01/15/2023 09:49:28 126 Above high normal 70 -120 (mg/dL) Final Calcium 01/15/2023 09:49:28 9.2 8.4-10.2 ( mg/dL) Final Performing Location LABORATORY [facility] [place] - [address] [place] [address]
--- OUTSIDE RECORDS SUMMARY | 2023-03-09 14:31 | External Medical Summary ---
Author Name Unknown Address Unknown Organization K01:LABORATORY [facility] [place] - [address] [place] [address] Laboratory Report Ordering Provider Test Date Status CHARLENE CONTRERAS 01/15/2023 09:49:28 Final CRRT Labs: Check at initiati on of CRRT, One hour after CRRT and Every 6 hours
Labs to be Drawn Peripherally Observation Date Value Abnormality Reference (Units ) Status Phosphate 01/15/2023 09:49:28 3.0 2.5-4.8 (m g/dL) Final Performing Location LABORATORY [facility] [place] - [address] [place] [address]
--- OUTSIDE RECORDS SUMMARY | 2023-03-09 14:31 | External Medical Summary ---
Author Name Unknown Address Unknown Organization K01:[place] [facility] [place] [address] [place] [address] Laboratory Report Ordering Provider Test Date Status CHARLENE CONTRERAS 01/15/2023 15:22:21 Final Post Filter Ionized Calcium Observation Date Value Abnormality Reference (Units ) Status Calcium.ionized [Moles/volume] in Blood drawn from CRRT circuit 01/15/2023 15:22:21 0.33 0.25-0.50 (mmol/L) Final Performing Location [facility] [facility] [place] [address] [place] [address]
--- OUTSIDE RECORDS SUMMARY | 2023-03-09 14:31 | External Medical Summary ---
Author Name Unknown Address Unknown Organization K01:LABOR[place]ORY [facility] [place] [address] [place] [address] Laboratory Report Ordering Provider Test Date Status CHARLENE CONTRERAS 01/15/2023 21:34:17 Final CRRT Labs: Check at initiati on of CRRT, One hour after CRRT and Every 6 hours
Labs to be Drawn Peripherally Observation Date Value Abnormality Reference (Units ) Status BUN 01/15/2023 21:34:17 6 6-20 (mg/dL) Final Creatinine 01/15/2023 21:34:17 0.9 0.5-1.0 (mg/dL) Final Glomerular filtration rate/1.73 sq M.predicted [Volume Rate/Area] in Serum, Plasma or Blood by Creatinine-based formula (CKD-EPI) 01/15/2023 21:34:17 78 >=60 (mL/min) Final eGFR is calculated based on the CKD-EPI 2020 equation SODIUM 01/15/2023 21:34:17 137 135-146 (m mol/L) Final Potassium 01/15/2023 21:34:17 3.7 3.5-5.1 (m mol/L) Final Cl 01/15/2023 21:34:17 99 98-107 (mm ol/L) Final CO2 01/15/2023 21:34:17 21 Below low normal 22- 32 (mmol/L) Final Anion gap 01/15/2023 21:34:17 17 Above high normal 7- 15 (mmol/L) Final Glucose 01/15/2023 21:34:17 130 Above high normal 70 -120 (mg/dL) Final Calcium 01/15/2023 21:34:17 9.3 8.4-10.2 ( mg/dL) Final Performing Location LABORATORY [facility] [place] [address] [place] [address]
--- OUTSIDE RECORDS SUMMARY | 2023-03-09 14:31 | External Medical Summary ---
Author Name Unknown Address Unknown Organization K01:LAB[place]ORY [facility] [place] [address] [place] [address] Laboratory Report Ordering Provider Test Date Status CHARLENE CONTRERAS 01/15/2023 15:22:21 Final CRRT Labs: Check at initiati on of CRRT, One hour after CRRT and Every 6 hours
Labs to be Drawn Peripherally Observation Date Value Abnormality Reference (Units ) Status Phosphate 01/15/2023 15:22:21 3.0 2.5-4.8 (m g/dL) Final Performing Location LABORATORY [facility] [place] [address] [place] [address]
--- OUTSIDE RECORDS SUMMARY | 2023-03-09 14:31 | External Medical Summary ---
Author Name Unknown Address Unknown Organization K01:[place] [facility] [place] [address] [place] [address] Laboratory Report Ordering Provider Test Date Status CHARLENE CONTRERAS 01/15/2023 09:49:28 Final CRRT Labs: Check at initiati on of CRRT, One hour after CRRT and Every 6 hours
Labs to be Drawn Peripherally Observation Date Value Abnormality Reference (Units ) Status Magnesium 01/15/2023 09:49:28 1.6 1.5-2.6 (m g/dL) Final Performing Location [place] [place] [address] [place] [address]
--- OUTSIDE RECORDS SUMMARY | 2023-03-09 14:31 | External Medical Summary ---
Author Name Unknown Address Unknown Organization K01:[place] [facility] [place] [address] [place] [address] Laboratory Report Ordering Provider Test Date Status CHARLENE CONTRERAS 01/15/2023 21:34:17 Final CRRT Labs: Check at initiati on of CRRT, One hour after CRRT and Every 6 hours
Labs to be Drawn Peripherally Observation Date Value Abnormality Reference (Units ) Status Phosphate 01/15/2023 21:34:17 2.3 Below low normal 2.5 -4.8 (mg/dL) Final Performing Location [facility] [place] [address] [place] [address]
--- OUTSIDE RECORDS SUMMARY | 2023-03-09 14:31 | External Medical Summary ---
Author Name Unknown Address Unknown Organization K01:[facility] [place] [address] [place] [address] Laboratory Report Ordering Provider Test Date Status DEBBIE LEHMAN 01/15/2023 10:05:31 Final Observation Date Value Abnormality Reference (Units ) Status Body temperature 01/15/2023 10:05:31 37.0 (C) Final pH of Arterial blood 01/15/2023 10:05:31 7.386 7.350-7.450 (units) Final Carbon dioxide [Partial pressure] in Arterial blood 01/15/2023 10:05:31 38.6 35.0-45.0 (mmHg) Final Oxygen [Partial pressure] in Arterial blood 01/15/2023 10:05:31 136.0 Above high normal 75.0-100.0 (mmHg) Final Base excess, Arterial 01/15/2023 10:05:31 -1.6 -2.0-2.0 (mmol/L) Final Hemoglobin [Mass/volume] in Blood by Oximetry 01/15/2023 10:05:31 7.5 Below low normal 12.0-15.3 (g/dL) Final Oxyhemoglobin, Arterial (FO2HB) 01/15/2023 10:05:31 97.4 94.0-99.0 (% total Hgb) Final Carboxyhemoglobin 01/15/2023 10:05:31 1.6 Above high normal <=1.5 (% total Hgb) Final Smokers: 0-9.0 % Methemoglobin 01/15/2023 10:05:31 0.6 <=1.5 (% total Hgb) Final Deoxyhemoglobin/Hemog lobin.total in Arterial blood 01/15/2023 10:05:31 0.4 0.0-5.0 (% total Hgb) Final Oxygen content in Arterial blood 01/15/2023 10:05:31 10.5 Below low normal 15.0-24.0 (%vol) Final Oxygen/Total gas setting [Volume Fraction] Ventilator 01/15/2023 10:05:31 Not Provided (%) Final O2 FLOW, ARTERIAL - [facility] 01/15/2023 10:05:31 Not Provided (L/min) Final Bicarbonate, Venous, POC (i-STAT) 01/15/2023 10:05:31 22.6 Below low normal 23.0-31.0 (mmol/L) Final Performing Location [facility] [place] [address] [facility] [address]
--- OUTSIDE RECORDS SUMMARY | 2023-03-09 14:31 | External Medical Summary ---
Author Name Unknown Address Unknown Organization K01:LABORATORY [facility] - [address] [place] [address] Laboratory Report Ordering Provider Test Date Status CHARLENE CONTRERAS 01/15/2023 21:34:17 Final CRRT Labs: Check at initiati on of CRRT, One hour after CRRT and Every 6 hours
Labs to be Drawn Peripherally Observation Date Value Abnormality Reference (Units ) Status Magnesium 01/15/2023 21:34:17 1.8 1.5-2.6 (m g/dL) Final Performing Location LAB[facility]ATORY [facility] - [address] [place] [address]
--- OUTSIDE RECORDS SUMMARY | 2023-03-09 14:31 | External Medical Summary ---
Author Name Unknown Address Unknown Organization K01:LAB[facility]ATORY [facility] [place] - [address] [place] [address] Laboratory Report Ordering Provider Test Date Status CHARLENE CONTRERAS 01/15/2023 09:49:08 Final Post Filter Ionized Calcium Observation Date Value Abnormality Reference (Units ) Status Calcium.ionized [Moles/volume] in Blood drawn from CRRT circuit 01/15/2023 09:49:08 0.34 0.25-0.50 (mmol/L) Final Performing Location LAB[facility]ATORY [facility] [place] - [address] [place] [address]
--- NOTE | 2023-03-09 14:32 | Procedure Note ---
Procedure Note Date of Service March 09, 2023 Note ARTERIAL LINE PROCEDURE NOTE: Procedure: Arterial Line Placement Attending: Dr. Gino Kuo MD Indication: Monitoring on Pressors Anesthesia: Local Lidocaine 1% Emergent consent was applied A time-out was completed verifying correct patient, procedure, site, positioning, and implant(s) or special equipment if applicable. Patients left groin was prepped and draped in the usual sterile fashion. Ultrasound guidance was used to aid needle placement. A 20g Arrow arterial line was introduced into the left femoral artery. Catheter was threaded, and the needle was removed with appropriate pulsatile blood return. Good waveform was observed on the monitor. The patient tolerated the procedure well. Confirmation of placement with ultrasound. Images saved to medical record. Complications: None Blood Loss: Less than 2 cc Coding CPT Codes Tubes, Drains, and Vasc Access - Tubes, Drains, and Vasc Access: [id number] Arterial Cath/Cannulation Sampling/Monitoring/Transfusion ([id number]) Tubes, Drains, and Vasc Access - Tubes, Drains, and Vasc Access: [id number] Ultrasound Guidance For Vascular ([id number]) [facility] Procedure Codes (Charges) Tubes, Drains, and Vasc Access Procedure 1: Tubes, Drains, and Vasc Access: [id number] Arterial Cath/Cannulation Sampl ing/Monitoring/Transfusion Procedure 2: Tubes, Drains, and Vasc Access: [id number] Ultrasound Guidance For Vascular
--- OUTSIDE RECORDS SUMMARY | 2023-03-09 14:32 | External Medical Summary ---
Author Name Unknown Address Unknown Organization K01:[facility] [place] [address] [facility] [place] [address] Laboratory Report Ordering Provider Test Date Status DEBBIE LEHMAN 01/14/2023 03:54:09 Final Observation Date Value Abnormality Reference (Units ) Status Body temperature 01/14/2023 03:54:09 37.0 (C) Final pH of Arterial blood 01/14/2023 03:54:09 7.382 7.350-7.450 (units) Final Carbon dioxide [Partial pressure] in Arterial blood 01/14/2023 03:54:09 38.7 35.0-45.0 (mmHg) Final Oxygen [Partial pressure] in Arterial blood 01/14/2023 03:54:09 102.0 Above high normal 75.0-100.0 (mmHg) Final Base excess, Arterial 01/14/2023 03:54:09 -1.8 -2.0-2.0 (mmol/L) Final Hemoglobin [Mass/volume] in Blood by Oximetry 01/14/2023 03:54:09 7.8 Below low normal 12.0-15.3 (g/dL) Final Oxyhemoglobin, Arterial (FO2HB) 01/14/2023 03:54:09 96.4 94.0-99.0 (% total Hgb) Final Carboxyhemoglobin 01/14/2023 03:54:09 1.7 Above high normal <=1.5 (% total Hgb) Final Smokers: 0-9.0 % Methemoglobin 01/14/2023 03:54:09 0.6 <=1.5 (% total Hgb) Final Deoxyhemoglobin/Hemog lobin.total in Arterial blood 01/14/2023 03:54:09 1.3 0.0-5.0 (% total Hgb) Final Oxygen content in Arterial blood 01/14/2023 03:54:09 10.8 Below low normal 15.0-24.0 (%vol) Final Oxygen/Total gas setting [Volume Fraction] Ventilator 01/14/2023 03:54:09 4 L NC (%) Final O2 FLOW, ARTERIAL - [facility] 01/14/2023 03:54:09 Not Provided (L/min) Final Bicarbonate, Venous, POC (i-STAT) 01/14/2023 03:54:09 22.5 Below low normal 23.0-31.0 (mmol/L) Final Performing Location [facility] [place] [address] [facility] [address]
--- OUTSIDE RECORDS SUMMARY | 2023-03-09 14:32 | External Medical Summary ---
Author Name Unknown Address Unknown Organization K01:LAB[facility]ATORY [facility] [place] - [address] [place] [address] Laboratory Report Ordering Provider Test Date Status LESA JEAN 01/14/2023 19:52:17 Final Observation Date Value Abnormality Reference (Units ) Status Lactic Acid 01/14/2023 19:52:17 1.2 0.4-2.0 (mmol/L) Final Performing Location LABORATORY [facility] - [address] [place] [address]
--- OUTSIDE RECORDS SUMMARY | 2023-03-09 14:32 | External Medical Summary ---
Author Name Unknown Address Unknown Organization : Laboratory Report Ordering Provider Test Date Status SERA LESLIE 01/14/2023 03:57:13 Final Observation Date Value Abnormality Reference (Units ) Status Glucose Point of Care 01/14/2023 03:57:13 128 Above high normal 70-120 (mg/dL) Final Performing Location
--- OUTSIDE RECORDS SUMMARY | 2023-03-09 14:32 | External Medical Summary ---
Author Name Unknown Address Unknown Organization : Laboratory Report Ordering Provider Test Date Status SERA LESLIE 01/14/2023 23:19:20 Final Observation Date Value Abnormality Reference (Units ) Status Glucose Point of Care 01/14/2023 23:19:20 113 70-120 (mg/dL) Final Performing Location
--- OUTSIDE RECORDS SUMMARY | 2023-03-09 14:32 | External Medical Summary ---
Author Name Unknown Address Unknown Organization K01:[facility] [place] [address] [facility] [address] Laboratory Report Ordering Provider Test Date Status CHARLENE CONTRERAS 01/14/2023 16:01:34 Final CRRT Labs: Check at initiati on of CRRT, One hour after CRRT and Every 6 hours
Labs to be Drawn Peripherally Observation Date Value Abnormality Reference (Units ) Status BUN 01/14/2023 16:01:34 8 6-20 (mg/dL) Final Creatinine 01/14/2023 16:01:34 0.9 0.5-1.0 (mg/dL) Final Glomerular filtration rate/1.73 sq M.predicted [Volume Rate/Area] in Serum, Plasma or Blood by Creatinine-based formula (CKD-EPI) 01/14/2023 16:01:34 74 >=60 (mL/min) Final eGFR is calculated based on the CKD-EPI 2020 equation SODIUM 01/14/2023 16:01:34 135 135-146 (m mol/L) Final Potassium 01/14/2023 16:01:34 3.2 Below low normal 3.5 -5.1 (mmol/L) Final Cl 01/14/2023 16:01:34 100 98-107 (mm ol/L) Final CO2 01/14/2023 16:01:34 21 Below low normal 22- 32 (mmol/L) Final Anion gap 01/14/2023 16:01:34 14 7-15 (mmol /L) Final Glucose 01/14/2023 16:01:34 106 70-120 (mg /dL) Final Calcium 01/14/2023 16:01:34 9.9 8.4-10.2 ( mg/dL) Final Performing Location [facility] [place] [address] [place] [address]
--- OUTSIDE RECORDS SUMMARY | 2023-03-09 14:32 | External Medical Summary ---
Author Name Unknown Address Unknown Organization K01:[place] [place] [facility] [address] [place] [address] Laboratory Report Ordering Provider Test Date Status CHARLENE CONTRERAS 01/14/2023 03:51:43 Final CRRT Labs: check once daily if not done already
Labs to be Drawn Peripherally

Anticoagulation may affect testing. Refer to [facility] Test Catalog for a list of effects. Observation Date Value Abnormality Reference (Units ) Status aPTT panel - Platelet poor plasma 01/14/2023 03:51:43 33 21-38 (seconds) Final Performing Location [facility] [place] [facility] [address] [facility] [address]
--- OUTSIDE RECORDS SUMMARY | 2023-03-09 14:32 | External Medical Summary ---
Author Name Unknown Address Unknown Organization K01:[facility] [place] - [facility] [place] [address] Laboratory Report Ordering Provider Test Date Status CHARLENE CONTRERAS 01/14/2023 03:51:43 Final CRRT Labs: check once daily if not done already
Labs to be Drawn Peripherally

Warfarin Therapy
INR: 2.0-3.0 conventional anticoagulation
INR: 2.5-3.5 high intensity anticoagulation Observation Date Value Abnormality Reference (Units ) Status PT 01/14/2023 03:51:43 15.1 11.6-15.2 (seconds) Final INR 01/14/2023 03:51:43 1.2 0.8-1.2 Final Performing Location [facility]ORY [facility] [place] - [address] [place] [address]
--- OUTSIDE RECORDS SUMMARY | 2023-03-09 14:32 | External Medical Summary ---
Author Name Unknown Address Unknown Organization K01:[facility] [place] [address] [address] Laboratory Report Ordering Provider Test Date Status CHARLENE CONTRERAS 01/14/2023 22:07:51 Final Post Filter Ionized Calcium Observation Date Value Abnormality Reference (Units ) Status Calcium.ionized [Moles/volume] in Blood drawn from CRRT circuit 01/14/2023 22:07:51 0.40 0.25-0.50 (mmol/L) Final Performing Location [facility] [place] [address] [place] [address]
--- OUTSIDE RECORDS SUMMARY | 2023-03-09 14:32 | External Medical Summary ---
Author Name Unknown Address Unknown Organization K01:[facility] [place] [address] [place] [address] Laboratory Report Ordering Provider Test Date Status LESA JEAN 01/14/2023 08:09:01 Final Observation Date Value Abnormality Reference (Units ) Status Lactic Acid 01/14/2023 08:09:01 0.7 0.4-2.0 (mmol/L) Final Performing Location LABORATORY [facility] - [address] [place] [address]
--- OUTSIDE RECORDS SUMMARY | 2023-03-09 14:32 | External Medical Summary ---
Author Name Unknown Address Unknown Organization : Laboratory Report Ordering Provider Test Date Status SERA LESLIE 01/14/2023 02:18:56 Final Observation Date Value Abnormality Reference (Units ) Status Glucose Point of Care 01/14/2023 02:18:56 148 Above high normal 70-120 (mg/dL) Final Performing Location
--- OUTSIDE RECORDS SUMMARY | 2023-03-09 14:32 | External Medical Summary ---
Author Name Unknown Address Unknown Organization : Laboratory Report Ordering Provider Test Date Status SERA LESLIE 01/13/2023 21:58:23 Final Observation Date Value Abnormality Reference (Units ) Status Glucose Point of Care 01/13/2023 21:58:23 126 Above high normal 70-120 (mg/dL) Final Performing Location
--- OUTSIDE RECORDS SUMMARY | 2023-03-09 14:32 | External Medical Summary ---
Author Name Unknown Address Unknown Organization : Laboratory Report Ordering Provider Test Date Status SERA LESLIE 01/14/2023 12:19:24 Final Observation Date Value Abnormality Reference (Units ) Status Glucose Point of Care 01/14/2023 12:19:24 102 70-120 (mg/dL) Final Performing Location
--- OUTSIDE RECORDS SUMMARY | 2023-03-09 14:32 | External Medical Summary ---
Author Name Unknown Address Unknown Organization K01:[facility] [place] - [facility] [place] [address] Laboratory Report Ordering Provider Test Date Status CHARLENE CONTRERAS 01/14/2023 03:51:43 Final CRRT Labs: check once daily if not done already
Labs to be Drawn Peripherally Observation Date Value Abnormality Reference (Units ) Status Albumin 01/14/2023 03:51:43 3.3 Below low normal 3.8-5.0 (g/dL) Final AST (Aspartate aminotransferase) 01/14/2023 03:51:43 18 10-35 (U/L) Final Alk Phos 01/14/2023 03:51:43 120 35-130 (U/L) Final ALT (Alanine aminotransferase) 01/14/2023 03:51:43 17 10-35 (U/L) Final Bilirubin, Total 01/14/2023 03:51:43 0.3 <=1.2 (mg/dL) Final Bilirubin, Direct 01/14/2023 03:51:43 <0.2 0.0-0.3 (mg/dL) Final Protein 01/14/2023 03:51:43 5.4 Below low normal 6.0-8.3 (g/dL) Final Performing Location LAB[facility]ORY [facility] [place] - [address] [place] [address]
--- OUTSIDE RECORDS SUMMARY | 2023-03-09 14:32 | External Medical Summary ---
Author Name Unknown Address Unknown Organization K01:[facility]ORY [facility] [place] - [address] [place] [address] Laboratory Report Ordering Provider Test Date Status CHARLENE CONTRERAS 01/13/2023 21:44:23 Final CRRT Labs: Check at initiati on of CRRT, One hour after CRRT and Every 6 hours
Labs to be Drawn Peripherally Observation Date Value Abnormality Reference (Units ) Status BUN 01/13/2023 21:44:23 10 6-20 (mg/dL) Final Creatinine 01/13/2023 21:44:23 0.9 0.5-1.0 (mg/dL) Final Glomerular filtration rate/1.73 sq M.predicted [Volume Rate/Area] in Serum, Plasma or Blood by Creatinine-based formula (CKD-EPI) 01/13/2023 21:44:23 78 >=60 (mL/min) Final eGFR is calculated based on the CKD-EPI 2020 equation SODIUM 01/13/2023 21:44:23 136 135-146 (m mol/L) Final Potassium 01/13/2023 21:44:23 3.5 3.5-5.1 (m mol/L) Final Cl 01/13/2023 21:44:23 99 98-107 (mm ol/L) Final CO2 01/13/2023 21:44:23 21 Below low normal 22- 32 (mmol/L) Final Anion gap 01/13/2023 21:44:23 16 Above high normal 7- 15 (mmol/L) Final Glucose 01/13/2023 21:44:23 134 Above high normal 70 -120 (mg/dL) Final Calcium 01/13/2023 21:44:23 10.3 Above high normal 8. 4-10.2 (mg/dL) Final Performing Location [facility] [place] - [address] [place] [address]
--- OUTSIDE RECORDS SUMMARY | 2023-03-09 14:32 | External Medical Summary ---
Author Name Unknown Address Unknown Organization K01:[facility] [place] [address] [place] [address] Laboratory Report Ordering Provider Test Date Status CHARLENE CONTRERAS 01/14/2023 16:01:34 Final CRRT Labs: Check at initiati on of CRRT, One hour after CRRT and Every 6 hours
Labs to be Drawn Peripherally
Send in a separate tube. Observation Date Value Abnormality Reference (Units ) Status Calcium.ionized [Moles/volume] in Blood by Ion-selective membrane electrode (ISE) 01/14/2023 16:01:34 1.14 1.13-1.32 (mmol/L) Final Performing Location [facility] [place] [address] [place] [address]
--- OUTSIDE RECORDS SUMMARY | 2023-03-09 14:32 | External Medical Summary ---
Author Name Unknown Address Unknown Organization K01:[facility] [place] - [address] [place] [address] Laboratory Report Ordering Provider Test Date Status CHARLENE CONTRERAS 01/14/2023 16:01:34 Final CRRT Labs: Check at initiati on of CRRT, One hour after CRRT and Every 6 hours
Labs to be Drawn Peripherally Observation Date Value Abnormality Reference (Units ) Status Magnesium 01/14/2023 16:01:34 1.7 1.5-2.6 (m g/dL) Final Performing Location [facility] [place] - [address] [place] [address]
--- OUTSIDE RECORDS SUMMARY | 2023-03-09 14:32 | External Medical Summary ---
Author Name Unknown Address Unknown Organization K01:[facility] [place] [address] [place] [address] Laboratory Report Ordering Provider Test Date Status CHARLENE CONTRERAS 01/14/2023 10:23:19 Final CRRT Labs: Check at initiati on of CRRT, One hour after CRRT and Every 6 hours
Labs to be Drawn Peripherally Observation Date Value Abnormality Reference (Units ) Status Magnesium 01/14/2023 10:23:19 2.0 1.5-2.6 (m g/dL) Final Performing Location [facility] [place] [address] [place] [address]
--- OUTSIDE RECORDS SUMMARY | 2023-03-09 14:32 | External Medical Summary ---
Author Name Unknown Address Unknown Organization : Laboratory Report Ordering Provider Test Date Status SERA LESLIE 01/14/2023 17:28:03 Final Observation Date Value Abnormality Reference (Units ) Status Glucose Point of Care 01/14/2023 17:28:03 127 Above high normal 70-120 (mg/dL) Final Performing Location
--- OUTSIDE RECORDS SUMMARY | 2023-03-09 14:32 | External Medical Summary ---
Author Name Unknown Address Unknown Organization K01:[facility]ORY [facility] [place] - [address] [place] [address] Laboratory Report Ordering Provider Test Date Status CHARLENE CONTRERAS 01/14/2023 03:51:43 Final CRRT Labs: Check at initiati on of CRRT, One hour after CRRT and Every 6 hours
Labs to be Drawn Peripherally
Send in a separate tube. Observation Date Value Abnormality Reference (Units ) Status Calcium.ionized [Moles/volume] in Blood by Ion-selective membrane electrode (ISE) 01/14/2023 03:51:43 1.08 Below low normal 1.13-1.32 (mmol/L) Final Performing Location LABORATORY [facility] [place] - [address] [place] [address]
--- OUTSIDE RECORDS SUMMARY | 2023-03-09 14:32 | External Medical Summary ---
Author Name Unknown Address Unknown Organization K01:[facility] [facility] [place] [address] [place] [address] Laboratory Report Ordering Provider Test Date Status DEBBIE LEHMAN 01/14/2023 22:09:04 Final Observation Date Value Abnormality Reference (Units) Status Body temperature 01/14/2023 22:09:04 37.0 (C) Final pH of Arterial blood 01/14/2023 22:09:04 7.430 7.350-7.450 (units) Final Carbon dioxide [Partial pressure] in Arterial blood 01/14/2023 22:09:04 35.8 35.0-45.0 (mmHg) Final Oxygen [Partial pressure] in Arterial blood 01/14/2023 22:09:04 83.9 75.0-100.0 (mmHg) Final Base excess, Arterial 01/14/2023 22:09:04 -0.3 -2.0-2.0 (mmol/L) Final Hemoglobin [Mass/volume] in Blood by Oximetry 01/14/2023 22:09:04 7.0 Below lower panic limits 12.0-15.3 (g/dL) Final Oxyhemoglobin, Arterial (FO2HB) 01/14/2023 22:09:04 93.9 Below low normal 94.0-99.0 (% total Hgb) Final Carboxyhemoglobin 01/14/2023 22:09:04 2.1 Above high normal <=1.5 (% total Hgb) Final Smokers: 0-9.0 % Methemoglobin 01/14/2023 22:09:04 1.0 <=1.5 (% total Hgb) Final Deoxyhemoglobin/Hemog lobin.total in Arterial blood 01/14/2023 22:09:04 3.0 0.0-5.0 (% total Hgb) Final Oxygen content in Arterial blood 01/14/2023 22:09:04 9.4 Below low normal 15.0-24.0 (%vol) Final Oxygen/Total gas setting [Volume Fraction] Ventilator 01/14/2023 22:09:04 Not Provided (%) Final O2 FLOW, [facility] - [facility] 01/14/2023 22:09:04 3 L NC (L/min) Final Bicarbonate, Venous, POC (i-STAT) 01/14/2023 22:09:04 23.4 23.0-31.0 (mmol/L) Final Performing Location LAB[facility] [place] [address] [facility] [address]
--- OUTSIDE RECORDS SUMMARY | 2023-03-09 14:32 | External Medical Summary ---
Author Name Unknown Address Unknown Organization K01:[place] [place] [address] [place] [address] Laboratory Report Ordering Provider Test Date Status CHARLENE CONTRERAS 01/14/2023 10:23:19 Final CRRT Labs: Check at initiati on of CRRT, One hour after CRRT and Every 6 hours
Labs to be Drawn Peripherally
Send in a separate tube. Observation Date Value Abnormality Reference (Units ) Status Calcium.ionized [Moles/volume] in Blood by Ion-selective membrane electrode (ISE) 01/14/2023 10:23:19 1.07 Below low normal 1.13-1.32 (mmol/L) Final Performing Location [facility] [place] [address] [place] [address]
--- OUTSIDE RECORDS SUMMARY | 2023-03-09 14:32 | External Medical Summary ---
Author Name Unknown Address Unknown Organization K01:LABOR[facility]ORY [facility] [place] - [address] [place] [address] Laboratory Report Ordering Provider Test Date Status SONYA FLOYD 01/14/2023 03:51:43 Final Observation Date Value Abnormality Reference (Units ) Status BUN 01/14/2023 03:51:43 8 6-20 (mg/dL) Final Creatinine 01/14/2023 03:51:43 0.9 0.5-1.0 (mg/dL) Final Glomerular filtration rate/1.73 sq M.predicted [Volume Rate/Area] in Serum, Plasma or Blood by Creatinine-based formula (CKD-EPI) 01/14/2023 03:51:43 76 >=60 (mL/min) Final eGFR is calculated based on the CKD-EPI 2020 equation SODIUM 01/14/2023 03:51:43 136 135-146 (m mol/L) Final Potassium 01/14/2023 03:51:43 3.5 3.5-5.1 (m mol/L) Final Cl 01/14/2023 03:51:43 100 98-107 (mm ol/L) Final CO2 01/14/2023 03:51:43 21 Below low normal 22- 32 (mmol/L) Final Anion gap 01/14/2023 03:51:43 15 7-15 (mmol /L) Final Glucose 01/14/2023 03:51:43 132 Above high normal 70 -120 (mg/dL) Final Calcium 01/14/2023 03:51:43 9.6 8.4-10.2 ( mg/dL) Final Performing Location LAB[facility]ORY [facility] [place] - [facility] [address] [place] [address]
--- OUTSIDE RECORDS SUMMARY | 2023-03-09 14:32 | External Medical Summary ---
Author Name Unknown Address Unknown Organization K01:[facility] [place] - [address] [place] [address] Laboratory Report Ordering Provider Test Date Status CHARLENE CONTRERAS 01/14/2023 16:01:34 Final Post Filter Ionized Calcium Observation Date Value Abnormality Reference (Units ) Status Calcium.ionized [Moles/volume] in Blood drawn from CRRT circuit 01/14/2023 16:01:34 0.43 0.25-0.50 (mmol/L) Final Performing Location LAB[facility] [place] - [address] [place] [address]
--- OUTSIDE RECORDS SUMMARY | 2023-03-09 14:32 | External Medical Summary ---
Author Name Unknown Address Unknown Organization K01:[place] [facility] [place] [address] [place] [address] Laboratory Report Ordering Provider Test Date Status CHARLENE CONTRERAS 01/14/2023 10:23:19 Final Post Filter Ionized Calcium Observation Date Value Abnormality Reference (Units ) Status Calcium.ionized [Moles/volume] in Blood drawn from CRRT circuit 01/14/2023 10:23:19 0.38 0.25-0.50 (mmol/L) Final Performing Location [facility] [facility] [place] [address] [place] [address]
--- OUTSIDE RECORDS SUMMARY | 2023-03-09 14:32 | External Medical Summary ---
Author Name Unknown Address Unknown Organization K01:LABORATORY [facility] [place] - [address] [place] [address] Laboratory Report Ordering Provider Test Date Status CHARLENE CONTRERAS 01/14/2023 22:07:51 Final CRRT Labs: Check at initiati on of CRRT, One hour after CRRT and Every 6 hours
Labs to be Drawn Peripherally Observation Date Value Abnormality Reference (Units ) Status BUN 01/14/2023 22:07:51 7 6-20 (mg/dL) Final Creatinine 01/14/2023 22:07:51 0.9 0.5-1.0 (mg/dL) Final Glomerular filtration rate/1.73 sq M.predicted [Volume Rate/Area] in Serum, Plasma or Blood by Creatinine-based formula (CKD-EPI) 01/14/2023 22:07:51 76 >=60 (mL/min) Final eGFR is calculated based on the CKD-EPI 2020 equation SODIUM 01/14/2023 22:07:51 135 135-146 (m mol/L) Final Potassium 01/14/2023 22:07:51 3.2 Below low normal 3.5 -5.1 (mmol/L) Final Cl 01/14/2023 22:07:51 99 98-107 (mm ol/L) Final CO2 01/14/2023 22:07:51 20 Below low normal 22- 32 (mmol/L) Final Anion gap 01/14/2023 22:07:51 16 Above high normal 7- 15 (mmol/L) Final Glucose 01/14/2023 22:07:51 104 70-120 (mg /dL) Final Calcium 01/14/2023 22:07:51 9.2 8.4-10.2 ( mg/dL) Final Performing Location LABORATORY [facility] [place] - [address] [place] [address]
--- OUTSIDE RECORDS SUMMARY | 2023-03-09 14:32 | External Medical Summary ---
Author Name Unknown Address Unknown Organization K01:LABORATORY [facility] [place] - [address] [place] [address] Laboratory Report Ordering Provider Test Date Status CHARLENE CONTRERAS 01/14/2023 03:51:43 Final CRRT Labs: check once daily if not done already
Labs to be Drawn Peripherally Observation Date Value Abnormality Reference (Units ) Status WBC, Total 01/14/2023 03:51:43 13.80 Above high normal 4.00-10.80 (K/uL) Final RBC 01/14/2023 03:51:43 2.51 3.85-5.15 (M/uL) Final Hemoglobin 01/14/2023 03:51:43 7.8 Below low normal 12.0-15.3 (g/dL) Final HCT 01/14/2023 03:51:43 24.0 Below low normal 36.0-45.2 (%) Final MCV 01/14/2023 03:51:43 95.6 81.5-97.5 (fL) Final MCH 01/14/2023 03:51:43 31.1 27.0-34.0 (pg) Final MCHC 01/14/2023 03:51:43 32.5 32.0-36.0 (g/dL) Final RDW 01/14/2023 03:51:43 18.2 11.5-15.5 (%) Final Platelets 01/14/2023 03:51:43 159 140-400 (K/uL) Final MPV 01/14/2023 03:51:43 10.7 6.6-11.1 (fL) Final Nucleated erythrocytes/100 leukocytes [Ratio] in Blood by Automated count 01/14/2023 03:51:43 0 <=0 (/100 WBCs) Final Performing Location LABORATORY [facility] [place] - [address] [place] [address]
--- OUTSIDE RECORDS SUMMARY | 2023-03-09 14:32 | External Medical Summary ---
Author Name Unknown Address Unknown Organization K01:[place] [place] [address] [place] [address] Laboratory Report Ordering Provider Test Date Status CHARLENE CONTRERAS 01/14/2023 03:51:43 Final Post Filter Ionized Calcium Observation Date Value Abnormality Reference (Units ) Status Calcium.ionized [Moles/volume] in Blood drawn from CRRT circuit 01/14/2023 03:51:43 0.38 0.25-0.50 (mmol/L) Final Performing Location [facility] [place] [address] [place] [address]
--- OUTSIDE RECORDS SUMMARY | 2023-03-09 14:32 | External Medical Summary ---
Author Name Unknown Address Unknown Organization K01:LABORATORY [facility] - [address] [place] [address] Laboratory Report Ordering Provider Test Date Status SONYA FLOYD 01/14/2023 03:51:43 Final Observation Date Value Abnormality Reference (Units ) Status Magnesium 01/14/2023 03:51:43 1.9 1.5-2.6 (m g/dL) Final Performing Location LABORATORY [facility] - [address] [place] [address]
--- OUTSIDE RECORDS SUMMARY | 2023-03-09 14:32 | External Medical Summary ---
Author Name Unknown Address Unknown Organization K01:LABORATORY [facility] [place] - [address] [place] [address] Laboratory Report Ordering Provider Test Date Status CHARLENE CONTRERAS 01/14/2023 22:07:51 Final CRRT Labs: Check at initiati on of CRRT, One hour after CRRT and Every 6 hours
Labs to be Drawn Peripherally
Send in a separate tube. Observation Date Value Abnormality Reference (Units ) Status Calcium.ionized [Moles/volume] in Blood by Ion-selective membrane electrode (ISE) 01/14/2023 22:07:51 1.01 Below low normal 1.13-1.32 (mmol/L) Final Performing Location LABORATORY [facility] [place] - [address] [place] [address]
--- OUTSIDE RECORDS SUMMARY | 2023-03-09 14:32 | External Medical Summary ---
Author Name Unknown Address Unknown Organization K01:LABORATORY [facility] [place] - [address] [place] [address] Laboratory Report Ordering Provider Test Date Status CHARLENE CONTRERAS 01/13/2023 21:44:23 Final Post Filter Ionized Calcium Observation Date Value Abnormality Reference (Units ) Status Calcium.ionized [Moles/volume] in Blood drawn from CRRT circuit 01/13/2023 21:44:23 0.41 0.25-0.50 (mmol/L) Final Performing Location LABORATORY [facility] [place] - [address] [place] [address]
--- OUTSIDE RECORDS SUMMARY | 2023-03-09 14:32 | External Medical Summary ---
Author Name Unknown Address Unknown Organization K01:[facility] [place] [address] [place] [address] Laboratory Report Ordering Provider Test Date Status CHARLENE CONTRERAS 01/14/2023 10:23:19 Final CRRT Labs: Check at initiati on of CRRT, One hour after CRRT and Every 6 hours
Labs to be Drawn Peripherally Observation Date Value Abnormality Reference (Units ) Status Phosphate 01/14/2023 10:23:19 2.9 2.5-4.8 (m g/dL) Final Performing Location [facility] [place] [address] [place] [address]
--- OUTSIDE RECORDS SUMMARY | 2023-03-09 14:32 | External Medical Summary ---
Author Name Unknown Address Unknown Organization K01:[place] [place] [address] [place] [address] Laboratory Report Ordering Provider Test Date Status DEBBIE LEHMAN 01/14/2023 16:02:10 Final Observation Date Value Abnormality Reference (Units ) Status Body temperature 01/14/2023 16:02:10 37.0 (C) Final pH of Arterial blood 01/14/2023 16:02:10 7.367 7.350-7.450 (units) Final Carbon dioxide [Partial pressure] in Arterial blood 01/14/2023 16:02:10 39.9 35.0-45.0 (mmHg) Final Oxygen [Partial pressure] in Arterial blood 01/14/2023 16:02:10 154.0 Above high normal 75.0-100.0 (mmHg) Final Base excess, Arterial 01/14/2023 16:02:10 -2.2 Below low normal -2.0-2.0 (mmol/L) Final Hemoglobin [Mass/volume] in Blood by Oximetry 01/14/2023 16:02:10 7.3 Below low normal 12.0-15.3 (g/dL) Final Oxyhemoglobin, Arterial (FO2HB) 01/14/2023 16:02:10 96.7 94.0-99.0 (% total Hgb) Final Carboxyhemoglobin 01/14/2023 16:02:10 1.5 <=1.5 (% total Hgb) Final Smokers: 0-9.0 % Methemoglobin 01/14/2023 16:02:10 1.1 <=1.5 (% total Hgb) Final Deoxyhemoglobin/Hemog lobin.total in Arterial blood 01/14/2023 16:02:10 0.7 0.0-5.0 (% total Hgb) Final Oxygen content in Arterial blood 01/14/2023 16:02:10 10.3 Below low normal 15.0-24.0 (%vol) Final Oxygen/Total gas setting [Volume Fraction] Ventilator 01/14/2023 16:02:10 Not Provided (%) Final O2 FLOW, [facility] - [facility] 01/14/2023 16:02:10 4 L (L/min) Final Bicarbonate, Venous, POC (i-STAT) 01/14/2023 16:02:10 22.3 Below low normal 23.0-31.0 (mmol/L) Final Performing Location [facility] [place] [address] [facility] [address]
--- OUTSIDE RECORDS SUMMARY | 2023-03-09 14:32 | External Medical Summary ---
Author Name Unknown Address Unknown Organization K01:LABORATORY [facility] [place] [facility] [address] [facility] [address] Laboratory Report Ordering Provider Test Date Status CHARLENE CONTRERAS 01/15/2023 04:20:43 Final CRRT Labs: check once daily if not done already
Labs to be Drawn Peripherally

Warfarin Therapy
INR: 2.0-3.0 conventional anticoagulation
INR: 2.5-3.5 high intensity anticoagulation Observation Date Value Abnormality Reference (Units ) Status PT 01/15/2023 04:20:43 15.8 Above high normal 11 .6-15.2 (seconds) Final INR 01/15/2023 04:20:43 1.2 0.8-1.2 Final Performing Location LABORATORY [facility] [place] [facility] [address] [facility] [address]
--- OUTSIDE RECORDS SUMMARY | 2023-03-09 14:33 | External Medical Summary ---
Author Name Unknown Address Unknown Organization K01:LABORATORY [facility] [place] - [address] [place] [address] Laboratory Report Ordering Provider Test Date Status CHARLENE CONTRERAS 01/13/2023 03:57:54 Final Post Filter Ionized Calcium Observation Date Value Abnormality Reference (Units ) Status Calcium.ionized [Moles/volume] in Blood drawn from CRRT circuit 01/13/2023 03:57:54 0.43 0.25-0.50 (mmol/L) Final Performing Location LABORATORY [facility] [place] - [address] [place] [address]
--- OUTSIDE RECORDS SUMMARY | 2023-03-09 14:33 | External Medical Summary ---
Author Name Unknown Address Unknown Organization : Laboratory Report Ordering Provider Test Date Status SERA LESLIE 01/12/2023 22:14:21 Final Observation Date Value Abnormality Reference (Units ) Status Glucose Point of Care 01/12/2023 22:14:21 116 70-120 (mg/dL) Final Performing Location
--- OUTSIDE RECORDS SUMMARY | 2023-03-09 14:33 | External Medical Summary ---
Author Name Unknown Address Unknown Organization K01:LABORATORY [facility] [place] - [facility] [place] [address] Laboratory Report Ordering Provider Test Date Status CAHRLENE CONTRERAS 01/13/2023 03:57:54 Final CRRT Labs: check once daily if not done already
Labs to be Drawn Peripherally Observation Date Value Abnormality Reference (Units ) Status Albumin 01/13/2023 03:57:54 3.5 Below low normal 3.8-5.0 (g/dL) Final AST (Aspartate aminotransferase) 01/13/2023 03:57:54 24 10-35 (U/L) Final Alk Phos 01/13/2023 03:57:54 110 35-130 (U/L) Final ALT (Alanine aminotransferase) 01/13/2023 03:57:54 17 10-35 (U/L) Final Bilirubin, Total 01/13/2023 03:57:54 0.3 <=1.2 (mg/dL) Final Bilirubin, Direct 01/13/2023 03:57:54 <0.2 0.0-0.3 (mg/dL) Final Protein 01/13/2023 03:57:54 5.9 Below low normal 6.0-8.3 (g/dL) Final Performing Location LABORATORY [facility] [place] - [address] [place] [address]
--- OUTSIDE RECORDS SUMMARY | 2023-03-09 14:33 | External Medical Summary ---
Author Name Unknown Address Unknown Organization K01:LABORATORY [facility] [place] - [address] [place] [address] Laboratory Report Ordering Provider Test Date Status CHARLENE CONTRERAS 01/13/2023 10:21:03 Final CRRT Labs: Check at initiati on of CRRT, One hour after CRRT and Every 6 hours
Labs to be Drawn Peripherally Observation Date Value Abnormality Reference (Units ) Status BUN 01/13/2023 10:21:03 11 6-20 (mg/dL) Final Creatinine 01/13/2023 10:21:03 0.9 0.5-1.0 (mg/dL) Final Glomerular filtration rate/1.73 sq M.predicted [Volume Rate/Area] in Serum, Plasma or Blood by Creatinine-based formula (CKD-EPI) 01/13/2023 10:21:03 79 >=60 (mL/min) Final eGFR is calculated based on the CKD-EPI 2020 equation SODIUM 01/13/2023 10:21:03 135 135-146 (m mol/L) Final Potassium 01/13/2023 10:21:03 3.3 Below low normal 3.5 -5.1 (mmol/L) Final Cl 01/13/2023 10:21:03 97 Below low normal 98- 107 (mmol/L) Final CO2 01/13/2023 10:21:03 21 Below low normal 22- 32 (mmol/L) Final Anion gap 01/13/2023 10:21:03 17 Above high normal 7- 15 (mmol/L) Final Glucose 01/13/2023 10:21:03 154 Above high normal 70 -120 (mg/dL) Final Calcium 01/13/2023 10:21:03 10.5 Above high normal 8. 4-10.2 (mg/dL) Final Performing Location LABORATORY [facility] [place] - [address] [place] [address]
--- OUTSIDE RECORDS SUMMARY | 2023-03-09 14:33 | External Medical Summary ---
Author Name Unknown Address Unknown Organization K01:LABORATORY [facility] [place] - [facility] [address] [facility] [address] Laboratory Report Ordering Provider Test Date Status DEBBIE LEHMAN 01/13/2023 13:06:39 Final Observation Date Value Abnormality Reference (Units ) Status WBC, Total 01/13/2023 13:06:39 12.81 Above high normal 4.00-10.80 (K/uL) Final RBC 01/13/2023 13:06:39 2.23 3.85-5.15 (M/uL) Final Hemoglobin 01/13/2023 13:06:39 6.7 Below lower panic limits 12.0-15.3 (g/dL) Final HCT 01/13/2023 13:06:39 21.8 Below low normal 36.0-45.2 (%) Final MCV 01/13/2023 13:06:39 97.8 81.5-97.5 (fL) Final MCH 01/13/2023 13:06:39 30.0 27.0-34.0 (pg) Final MCHC 01/13/2023 13:06:39 30.7 32.0-36.0 (g/dL) Final RDW 01/13/2023 13:06:39 18.6 11.5-15.5 (%) Final Platelets 01/13/2023 13:06:39 145 140-400 (K/uL) Final MPV 01/13/2023 13:06:39 11.3 6.6-11.1 (fL) Final Nucleated erythrocytes/100 leukocytes [Ratio] in Blood by Automated count 01/13/2023 13:06:39 0 <=0 (/100 WBCs) Final Performing Location LABORATORY [facility] [place] - [address] [place] [address]
--- OUTSIDE RECORDS SUMMARY | 2023-03-09 14:33 | External Medical Summary ---
Author Name Unknown Address Unknown Organization K01:LABORATORY [facility] [place] - [address] [place] [address] Laboratory Report Ordering Provider Test Date Status CHARLENE CONTRERAS 01/13/2023 15:56:30 Final CRRT Labs: Check at initiati on of CRRT, One hour after CRRT and Every 6 hours
Labs to be Drawn Peripherally Observation Date Value Abnormality Reference (Units ) Status Magnesium 01/13/2023 15:56:30 1.9 1.5-2.6 (m g/dL) Final Performing Location LABORATORY [facility] [place] - [address] [place] [address]
--- OUTSIDE RECORDS SUMMARY | 2023-03-09 14:33 | External Medical Summary ---
Author Name Unknown Address Unknown Organization K01:[place] [facility] [place] [address] [place] [address] Laboratory Report Ordering Provider Test Date Status CHARLENE CONTRERAS 01/12/2023 21:54:26 Final CRRT Labs: Check at initiati on of CRRT, One hour after CRRT and Every 6 hours
Labs to be Drawn Peripherally Observation Date Value Abnormality Reference (Units ) Status Phosphate 01/12/2023 21:54:26 2.8 2.5-4.8 (m g/dL) Final Performing Location [facility] [place] [address] [place] [address]
--- OUTSIDE RECORDS SUMMARY | 2023-03-09 14:33 | External Medical Summary ---
Author Name Unknown Address Unknown Organization K01:LABORATORY [facility] - [address] [place] [address] Laboratory Report Ordering Provider Test Date Status SONYA FLOYD 01/13/2023 03:57:54 Final Observation Date Value Abnormality Reference (Units ) Status Phosphate 01/13/2023 03:57:54 2.9 2.5-4.8 (m g/dL) Final Performing Location LABORATORY [facility] - [address] [place] [address]
--- OUTSIDE RECORDS SUMMARY | 2023-03-09 14:33 | External Medical Summary ---
Author Name Unknown Address Unknown Organization K01:[place] [facility] [place] [address] [place] [address] Laboratory Report Ordering Provider Test Date Status CHARLENE CONTRERAS 01/13/2023 03:57:54 Final CRRT Labs: Check at initiati on of CRRT, One hour after CRRT and Every 6 hours
Labs to be Drawn Peripherally
Send in a separate tube. Observation Date Value Abnormality Reference (Units ) Status Calcium.ionized [Moles/volume] in Blood by Ion-selective membrane electrode (ISE) 01/13/2023 03:57:54 1.09 Below low normal 1.13-1.32 (mmol/L) Final Performing Location [facility] [place] [address] [place] [address]
--- OUTSIDE RECORDS SUMMARY | 2023-03-09 14:33 | External Medical Summary ---
Author Name Unknown Address Unknown Organization : Laboratory Report Ordering Provider Test Date Status SERA LESLIE 01/13/2023 17:54:24 Final Observation Date Value Abnormality Reference (Units ) Status Glucose Point of Care 01/13/2023 17:54:24 119 70-120 (mg/dL) Final Performing Location
--- OUTSIDE RECORDS SUMMARY | 2023-03-09 14:33 | External Medical Summary ---
Author Name Unknown Address Unknown Organization K01:[facility]ORY [facility] [place] [address] [place] [address] Laboratory Report Ordering Provider Test Date Status CHARLENE CONTRERAS 01/13/2023 10:21:03 Final Post Filter Ionized Calcium Observation Date Value Abnormality Reference (Units ) Status Calcium.ionized [Moles/volume] in Blood drawn from CRRT circuit 01/13/2023 10:21:03 0.45 0.25-0.50 (mmol/L) Final Performing Location LABORATORY [facility] [place] [address] [place] [address]
--- OUTSIDE RECORDS SUMMARY | 2023-03-09 14:33 | External Medical Summary ---
Author Name Unknown Address Unknown Organization K01:LAB[facility]ATORY [facility] [place] - [address] [place] [address] Laboratory Report Ordering Provider Test Date Status MARKCONSTANTINEKHRIS 01/13/2023 21:44:23 Final Observation Date Value Abnormality Reference (Units ) Status Lactic Acid 01/13/2023 21:44:23 0.8 0.4-2.0 (mmol/L) Final Performing Location LABORATORY [facility] - [address] [place] [address]
--- OUTSIDE RECORDS SUMMARY | 2023-03-09 14:33 | External Medical Summary ---
Author Name Unknown Address Unknown Organization : Laboratory Report Ordering Provider Test Date Status SERA LESLIE 01/12/2023 23:49:48 Final Observation Date Value Abnormality Reference (Units ) Status Glucose Point of Care 01/12/2023 23:49:48 129 Above high normal 70-120 (mg/dL) Final Performing Location
--- OUTSIDE RECORDS SUMMARY | 2023-03-09 14:33 | External Medical Summary ---
Author Name Unknown Address Unknown Organization : Laboratory Report Ordering Provider Test Date Status SERA LESLIE 01/13/2023 11:39:51 Final Observation Date Value Abnormality Reference (Units ) Status Glucose Point of Care 01/13/2023 11:39:51 124 Above high normal 70-120 (mg/dL) Final Performing Location
--- OUTSIDE RECORDS SUMMARY | 2023-03-09 14:33 | External Medical Summary ---
Author Name Unknown Address Unknown Organization K01:[place] [place] [address] [place] [address] Laboratory Report Ordering Provider Test Date Status CHARLENE CONTRERAS 01/13/2023 15:56:30 Final Post Filter Ionized Calcium Observation Date Value Abnormality Reference (Units ) Status Calcium.ionized [Moles/volume] in Blood drawn from CRRT circuit 01/13/2023 15:56:30 0.43 0.25-0.50 (mmol/L) Final Performing Location LAB[facility] [place] [address] [place] [address]
--- OUTSIDE RECORDS SUMMARY | 2023-03-09 14:33 | External Medical Summary ---
Author Name Unknown Address Unknown Organization : Laboratory Report Ordering Provider Test Date Status SERA LESLIE 01/12/2023 22:15:49 Final Observation Date Value Abnormality Reference (Units ) Status Glucose Point of Care 01/12/2023 22:15:49 110 70-120 (mg/dL) Final Performing Location
--- OUTSIDE RECORDS SUMMARY | 2023-03-09 14:33 | External Medical Summary ---
Author Name Unknown Address Unknown Organization K01:LABORATORY [facility] [place] - [address] [place] [address] Laboratory Report Ordering Provider Test Date Status CHARLENE CONTRERAS 01/13/2023 15:56:30 Final CRRT Labs: Check at initiati on of CRRT, One hour after CRRT and Every 6 hours
Labs to be Drawn Peripherally Observation Date Value Abnormality Reference (Units ) Status BUN 01/13/2023 15:56:30 10 6-20 (mg/dL) Final Creatinine 01/13/2023 15:56:30 0.8 0.5-1.0 (mg/dL) Final Glomerular filtration rate/1.73 sq M.predicted [Volume Rate/Area] in Serum, Plasma or Blood by Creatinine-based formula (CKD-EPI) 01/13/2023 15:56:30 83 >=60 (mL/min) Final eGFR is calculated based on the CKD-EPI 2020 equation SODIUM 01/13/2023 15:56:30 138 135-146 (m mol/L) Final Potassium 01/13/2023 15:56:30 3.4 Below low normal 3.5 -5.1 (mmol/L) Final Cl 01/13/2023 15:56:30 100 98-107 (mm ol/L) Final CO2 01/13/2023 15:56:30 20 Below low normal 22- 32 (mmol/L) Final Anion gap 01/13/2023 15:56:30 18 Above high normal 7- 15 (mmol/L) Final Glucose 01/13/2023 15:56:30 121 Above high normal 70 -120 (mg/dL) Final Calcium 01/13/2023 15:56:30 10.3 Above high normal 8. 4-10.2 (mg/dL) Final Performing Location LABORATORY [facility] [place] - [address] [place] [address]
--- OUTSIDE RECORDS SUMMARY | 2023-03-09 14:33 | External Medical Summary ---
Author Name Unknown Address Unknown Organization K01:[place] [facility] [place] [address] [place] [address] Laboratory Report Ordering Provider Test Date Status SONYA FLOYD 01/13/2023 03:57:54 Final Observation Date Value Abnormality Reference (Units ) Status BUN 01/13/2023 03:57:54 11 6-20 (mg/dL) Final Creatinine 01/13/2023 03:57:54 0.8 0.5-1.0 (mg/dL) Final Glomerular filtration rate/1.73 sq M.predicted [Volume Rate/Area] in Serum, Plasma or Blood by Creatinine-based formula (CKD-EPI) 01/13/2023 03:57:54 80 >=60 (mL/min) Final eGFR is calculated based on the CKD-EPI 2020 equation SODIUM 01/13/2023 03:57:54 137 135-146 (m mol/L) Final Potassium 01/13/2023 03:57:54 3.5 3.5-5.1 (m mol/L) Final Cl 01/13/2023 03:57:54 102 98-107 (mm ol/L) Final CO2 01/13/2023 03:57:54 19 Below low normal 22- 32 (mmol/L) Final Anion gap 01/13/2023 03:57:54 16 Above high normal 7- 15 (mmol/L) Final Glucose 01/13/2023 03:57:54 143 Above high normal 70 -120 (mg/dL) Final Calcium 01/13/2023 03:57:54 10.0 8.4-10.2 ( mg/dL) Final Performing Location [facility] [facility] [place] [address] [place] [address]
--- OUTSIDE RECORDS SUMMARY | 2023-03-09 14:33 | External Medical Summary ---
Author Name Unknown Address Unknown Organization : Laboratory Report Ordering Provider Test Date Status SERA LESLIE 01/13/2023 04:32:11 Final Observation Date Value Abnormality Reference (Units ) Status Glucose Point of Care 01/13/2023 04:32:11 99 70-120 (mg/dL) Final Performing Location
--- OUTSIDE RECORDS SUMMARY | 2023-03-09 14:33 | External Medical Summary ---
Author Name Unknown Address Unknown Organization K01:LABORATORY [facility] - [address] [place] [address] Laboratory Report Ordering Provider Test Date Status EVERETTSIRKHRIS 01/13/2023 03:57:54 Final Observation Date Value Abnormality Reference (Units ) Status Magnesium 01/13/2023 03:57:54 1.4 Below low normal 1.5 -2.6 (mg/dL) Final Performing Location LABORATORY [facility] - [address] [place] [address]
--- OUTSIDE RECORDS SUMMARY | 2023-03-09 14:33 | External Medical Summary ---
Author Name Unknown Address Unknown Organization K01:LABORATORY [facility] [place] - [address] [place] [address] Laboratory Report Ordering Provider Test Date Status CHARLENE CONTRERAS 01/12/2023 21:54:26 Final CRRT Labs: Check at initiati on of CRRT, One hour after CRRT and Every 6 hours
Labs to be Drawn Peripherally Observation Date Value Abnormality Reference (Units ) Status BUN 01/12/2023 21:54:26 13 6-20 (mg/dL) Final Creatinine 01/12/2023 21:54:26 0.9 0.5-1.0 (mg/dL) Final Glomerular filtration rate/1.73 sq M.predicted [Volume Rate/Area] in Serum, Plasma or Blood by Creatinine-based formula (CKD-EPI) 01/12/2023 21:54:26 73 >=60 (mL/min) Final eGFR is calculated based on the CKD-EPI 2020 equation SODIUM 01/12/2023 21:54:26 137 135-146 (m mol/L) Final Potassium 01/12/2023 21:54:26 3.7 3.5-5.1 (m mol/L) Final Cl 01/12/2023 21:54:26 99 98-107 (mm ol/L) Final CO2 01/12/2023 21:54:26 21 Below low normal 22- 32 (mmol/L) Final Anion gap 01/12/2023 21:54:26 17 Above high normal 7- 15 (mmol/L) Final Glucose 01/12/2023 21:54:26 138 Above high normal 70 -120 (mg/dL) Final Calcium 01/12/2023 21:54:26 10.5 Above high normal 8. 4-10.2 (mg/dL) Final Performing Location LABORATORY [facility] [place] - [address] [place] [address]
--- OUTSIDE RECORDS SUMMARY | 2023-03-09 14:33 | External Medical Summary ---
Author Name Unknown Address Unknown Organization K01:LAB[place]ATORY [facility] [place] [facility] [place] [address] [facility] [place] [address] Laboratory Report Ordering Provider Test Date Status CHARLENE CONTRERAS 01/13/2023 03:57:54 Final CRRT Labs: check once daily if not done already
Labs to be Drawn Peripherally

Anticoagulation may affect testing. Refer to [facility] Test Catalog for a list of effects. Observation Date Value Abnormality Reference (Units ) Status aPTT panel - Platelet poor plasma 01/13/2023 03:57:54 31 21-38 (seconds) Final Performing Location LABORATORY [facility] [place] - [facility] [place] [address] [facility] [address]
--- OUTSIDE RECORDS SUMMARY | 2023-03-09 14:33 | External Medical Summary ---
Author Name Unknown Address Unknown Organization K01:[place] [facility] [place] [address] [place] [address] Laboratory Report Ordering Provider Test Date Status CHARLENE CONTRERAS 01/13/2023 21:44:23 Final CRRT Labs: Check at initiati on of CRRT, One hour after CRRT and Every 6 hours
Labs to be Drawn Peripherally
Send in a separate tube. Observation Date Value Abnormality Reference (Units ) Status Calcium.ionized [Moles/volume] in Blood by Ion-selective membrane electrode (ISE) 01/13/2023 21:44:23 1.13 1.13-1.32 (mmol/L) Final Performing Location [place] [facility] [place] [address] [place] [address]
--- OUTSIDE RECORDS SUMMARY | 2023-03-09 14:33 | External Medical Summary ---
Author Name Unknown Address Unknown Organization K01:[place] [facility] [place] [address] [place] [address] Laboratory Report Ordering Provider Test Date Status CHARLENE CONTRERAS 01/13/2023 10:21:03 Final CRRT Labs: Check at initiati on of CRRT, One hour after CRRT and Every 6 hours
Labs to be Drawn Peripherally Observation Date Value Abnormality Reference (Units ) Status Phosphate 01/13/2023 10:21:03 3.2 2.5-4.8 (m g/dL) Final Performing Location [place] [facility] [place] [address] [place] [address]
--- OUTSIDE RECORDS SUMMARY | 2023-03-09 14:33 | External Medical Summary ---
Author Name Unknown Address Unknown Organization K01:[place]ORY [facility] [place] [address] [place] [address] Laboratory Report Ordering Provider Test Date Status CHARLENE CONTRERAS 01/13/2023 21:44:23 Final CRRT Labs: Check at initiati on of CRRT, One hour after CRRT and Every 6 hours
Labs to be Drawn Peripherally Observation Date Value Abnormality Reference (Units ) Status Magnesium 01/13/2023 21:44:23 1.6 1.5-2.6 (m g/dL) Final Performing Location LAB[place]ATORY [facility] [place] [address] [place] [address]
--- OUTSIDE RECORDS SUMMARY | 2023-03-09 14:33 | External Medical Summary ---
Author Name Unknown Address Unknown Organization K01:LABORATORY [facility] [place] - [address] [facility] [address] Laboratory Report Ordering Provider Test Date Status CHARLENE CONTRERAS 01/13/2023 03:57:54 Final CRRT Labs: check once daily if not done already
Labs to be Drawn Peripherally Observation Date Value Abnormality Reference (Units ) Status WBC, Total 01/13/2023 03:57:54 18.50 Above high normal 4.00-10.80 (K/uL) Final RBC 01/13/2023 03:57:54 2.34 3.85-5.15 (M/uL) Final Hemoglobin 01/13/2023 03:57:54 7.2 Below low normal 12.0-15.3 (g/dL) Final HCT 01/13/2023 03:57:54 23.0 Below low normal 36.0-45.2 (%) Final MCV 01/13/2023 03:57:54 98.3 81.5-97.5 (fL) Final MCH 01/13/2023 03:57:54 30.8 27.0-34.0 (pg) Final MCHC 01/13/2023 03:57:54 31.3 32.0-36.0 (g/dL) Final RDW 01/13/2023 03:57:54 18.3 11.5-15.5 (%) Final Platelets 01/13/2023 03:57:54 158 140-400 (K/uL) Final MPV 01/13/2023 03:57:54 11.1 6.6-11.1 (fL) Final Nucleated erythrocytes/100 leukocytes [Ratio] in Blood by Automated count 01/13/2023 03:57:54 0 <=0 (/100 WBCs) Final Performing Location LABORATORY [facility] [place] - [address] [place] [address]
--- OUTSIDE RECORDS SUMMARY | 2023-03-09 14:33 | External Medical Summary ---
Author Name Unknown Address Unknown Organization K01:[place]ORY [facility] [place] [address] [facility]. [place] [address] Laboratory Report Ordering Provider Test Date Status CHARLENE CONTRERAS 01/13/2023 03:57:54 Final CRRT Labs: check once daily if not done already
Labs to be Drawn Peripherally Observation Date Value Abnormality Reference (Units ) Status SYNC LEUKOCYTES IN BLOOD BY AUTOMATED COUNT 01/13/2023 03:57:54 18.50 Above high normal 4.00-10.80 (K/uL) Final Segs 01/13/2023 03:57:54 85.6 Above high normal 40.0-75.0 (%) Final Lymphs % 01/13/2023 03:57:54 7.0 Below low normal 18.0-42.0 (%) Final Monos 01/13/2023 03:57:54 5.9 1.0-11.0 (%) Final Eosinophils 01/13/2023 03:57:54 0.1 0.0-6.0 (%) Final Basos 01/13/2023 03:57:54 0.1 0.0-2.0 (%) Final Immature Granulocyte, Percent 01/13/2023 03:57:54 1.3 0.0-2.0 (%) Final Absolute Segs 01/13/2023 03:57:54 15.86 Above high normal 1.80-7.70 (K/uL) Final Lymphs, absolute 01/13/2023 03:57:54 1.29 1.00-4.80 (K/ul) Final Monos, Abs 01/13/2023 03:57:54 1.09 0.00-1.10 (K/uL) Final Eos, Abs 01/13/2023 03:57:54 0.01 0.00-0.70 (K/uL) Final Basos, Abs 01/13/2023 03:57:54 0.01 0.00-0.20 (K/uL) Final Immature Granulocytes, Number 01/13/2023 03:57:54 0.24 Above high normal 0.00-0.20 (K/uL) Final Performing Location [place]ORY [facility] [place] [address] [facility] [address]
--- OUTSIDE RECORDS SUMMARY | 2023-03-09 14:33 | External Medical Summary ---
Author Name Unknown Address Unknown Organization K01:[place] [facility] [place] [address] [place] [address] Laboratory Report Ordering Provider Test Date Status SONYA FLOYD 01/13/2023 10:21:03 Final Observation Date Value Abnormality Reference (Units ) Status Lactic Acid 01/13/2023 10:21:03 1.0 0.4-2.0 (mmol/L) Final Performing Location LABORATORY [facility] - [address] [place] [address]
--- OUTSIDE RECORDS SUMMARY | 2023-03-09 14:33 | External Medical Summary ---
Author Name Unknown Address Unknown Organization K01:[place]ORY [facility] [place] [address] [place] [address] Laboratory Report Ordering Provider Test Date Status CHARLENE CONTRERAS 01/13/2023 15:56:30 Final CRRT Labs: Check at initiati on of CRRT, One hour after CRRT and Every 6 hours
Labs to be Drawn Peripherally Observation Date Value Abnormality Reference (Units ) Status Phosphate 01/13/2023 15:56:30 3.4 2.5-4.8 (m g/dL) Final Performing Location LABORATORY [facility] [place] [address] [place] [address]
--- OUTSIDE RECORDS SUMMARY | 2023-03-09 14:33 | External Medical Summary ---
Author Name Unknown Address Unknown Organization K01:LAB[place]ATORY [facility] [place] [address] [place] [address] Laboratory Report Ordering Provider Test Date Status MARKCONSTANTINESIRKHRIS 01/12/2023 21:54:26 Final Observation Date Value Abnormality Reference (Units ) Status Lactic Acid 01/12/2023 21:54:26 1.1 0.4-2.0 (mmol/L) Final Performing Location LABORATORY [facility] - [address] [place] [address]
--- OUTSIDE RECORDS SUMMARY | 2023-03-09 14:34 | External Medical Summary ---
Author Name Unknown Address Unknown Organization K01:[place] [facility] [place] [address] [place] [address] Laboratory Report Ordering Provider Test Date Status CHARLENE CONTRERAS 01/12/2023 16:15:29 Final CRRT Labs: Check at initiati on of CRRT, One hour after CRRT and Every 6 hours
Labs to be Drawn Peripherally Observation Date Value Abnormality Reference (Units ) Status BUN 01/12/2023 16:15:29 13 6-20 (mg/dL) Final Creatinine 01/12/2023 16:15:29 1.0 0.5-1.0 (mg/dL) Final Glomerular filtration rate/1.73 sq M.predicted [Volume Rate/Area] in Serum, Plasma or Blood by Creatinine-based formula (CKD-EPI) 01/12/2023 16:15:29 65 >=60 (mL/min) Final eGFR is calculated based on the CKD-EPI 2020 equation SODIUM 01/12/2023 16:15:29 136 135-146 (m mol/L) Final Potassium 01/12/2023 16:15:29 3.7 3.5-5.1 (m mol/L) Final Cl 01/12/2023 16:15:29 97 Below low normal 98- 107 (mmol/L) Final CO2 01/12/2023 16:15:29 22 22-32 (mmo l/L) Final Anion gap 01/12/2023 16:15:29 17 Above high normal 7- 15 (mmol/L) Final Glucose 01/12/2023 16:15:29 152 Above high normal 70 -120 (mg/dL) Final Calcium 01/12/2023 16:15:29 12.2 Above high normal 8. 4-10.2 (mg/dL) Final Performing Location [place]ORY [facility] [place] [address] [place] [address]
--- OUTSIDE RECORDS SUMMARY | 2023-03-09 14:34 | External Medical Summary ---
Author Name Unknown Address Unknown Organization : Laboratory Report Ordering Provider Test Date Status SERA LESLIE 01/12/2023 16:14:12 Final Observation Date Value Abnormality Reference (Units ) Status Glucose Point of Care 01/12/2023 16:14:12 148 Above high normal 70-120 (mg/dL) Final Performing Location
--- OUTSIDE RECORDS SUMMARY | 2023-03-09 14:34 | External Medical Summary ---
Author Name Unknown Address Unknown Organization K01:LABORATORY [facility] [place] - [address] [place] [address] Laboratory Report Ordering Provider Test Date Status CHARLENE CONTRERAS 01/12/2023 16:15:29 Final CRRT Labs: Check at initiati on of CRRT, One hour after CRRT and Every 6 hours
Labs to be Drawn Peripherally Observation Date Value Abnormality Reference (Units ) Status Phosphate 01/12/2023 16:15:29 3.9 2.5-4.8 (m g/dL) Final Performing Location LABORATORY [facility] [place] - [address] [place] [address]
--- OUTSIDE RECORDS SUMMARY | 2023-03-09 14:34 | External Medical Summary ---
Author Name Unknown Address Unknown Organization K01:LABORATORY [facility] [place] - [address] [place] [address] Laboratory Report Ordering Provider Test Date Status CHARLENE CONTRERAS 01/12/2023 16:15:29 Final CRRT Labs: Check at initiati on of CRRT, One hour after CRRT and Every 6 hours
Labs to be Drawn Peripherally
Send in a separate tube. Observation Date Value Abnormality Reference (Units ) Status Calcium.ionized [Moles/volume] in Blood by Ion-selective membrane electrode (ISE) 01/12/2023 16:15:29 1.22 1.13-1.32 (mmol/L) Final Performing Location LABORATORY [facility] [place] - [address] [place] [address]
--- OUTSIDE RECORDS SUMMARY | 2023-03-09 14:34 | External Medical Summary ---
Author Name Unknown Address Unknown Organization K01:[place] [facility] [place] [address] [facility] [place] [address] Laboratory Report Ordering Provider Test Date Status CHARLENE CONTRERAS 01/12/2023 21:54:26 Final Post Filter Ionized Calcium Observation Date Value Abnormality Reference (Units ) Status Calcium.ionized [Moles/volume] in Blood drawn from CRRT circuit 01/12/2023 21:54:26 0.43 0.25-0.50 (mmol/L) Final Performing Location [place] [facility] [place] [address] [place] [address]
--- OUTSIDE RECORDS SUMMARY | 2023-03-09 14:34 | External Medical Summary ---
Author Name Unknown Address Unknown Organization : Laboratory Report Ordering Provider Test Date Status SERA LESLIE 01/12/2023 12:55:47 Final Observation Date Value Abnormality Reference (Units ) Status Glucose Point of Care 01/12/2023 12:55:47 126 Above high normal 70-120 (mg/dL) Final Performing Location
--- OUTSIDE RECORDS SUMMARY | 2023-03-09 14:34 | External Medical Summary ---
Author Name Unknown Address Unknown Organization : Laboratory Report Ordering Provider Test Date Status SERA LESLIE 01/12/2023 20:21:19 Final Observation Date Value Abnormality Reference (Units ) Status Glucose Point of Care 01/12/2023 20:21:19 151 Above high normal 70-120 (mg/dL) Final Performing Location
--- OUTSIDE RECORDS SUMMARY | 2023-03-09 14:34 | External Medical Summary ---
Author Name Unknown Address Unknown Organization : Laboratory Report Ordering Provider Test Date Status SERA LESLIE 01/12/2023 11:09:24 Final Observation Date Value Abnormality Reference (Units ) Status Glucose Point of Care 01/12/2023 11:09:24 110 70-120 (mg/dL) Final Performing Location
--- OUTSIDE RECORDS SUMMARY | 2023-03-09 14:34 | External Medical Summary ---
Author Name Unknown Address Unknown Organization : Laboratory Report Ordering Provider Test Date Status SERA LESLIE 01/12/2023 18:16:05 Final Observation Date Value Abnormality Reference (Units ) Status Glucose Point of Care 01/12/2023 18:16:05 143 Above high normal 70-120 (mg/dL) Final Performing Location
--- OUTSIDE RECORDS SUMMARY | 2023-03-09 14:34 | External Medical Summary ---
Author Name Unknown Address Unknown Organization K01:[place] [facility] [place] [address] [place] [address] Laboratory Report Ordering Provider Test Date Status CHARLENE CONTRERAS 01/12/2023 19:08:55 Final Post Filter Ionized Calcium Observation Date Value Abnormality Reference (Units ) Status Calcium.ionized [Moles/volume] in Blood drawn from CRRT circuit 01/12/2023 19:08:55 0.48 0.25-0.50 (mmol/L) Final Performing Location LAB[place] [facility] [place] [address] [place] [address]
--- OUTSIDE RECORDS SUMMARY | 2023-03-09 14:34 | External Medical Summary ---
Author Name Unknown Address Unknown Organization K01:[place] [facility] [place] [address] [place] [address] Laboratory Report Ordering Provider Test Date Status CHARLENE CONTRERAS 01/12/2023 21:54:26 Final CRRT Labs: Check at initiati on of CRRT, One hour after CRRT and Every 6 hours
Labs to be Drawn Peripherally
Send in a separate tube. Observation Date Value Abnormality Reference (Units ) Status Calcium.ionized [Moles/volume] in Blood by Ion-selective membrane electrode (ISE) 01/12/2023 21:54:26 1.09 Below low normal 1.13-1.32 (mmol/L) Final Performing Location LAB[place]ORY [facility] [place] [address] [place] [address]
--- OUTSIDE RECORDS SUMMARY | 2023-03-09 14:34 | External Medical Summary ---
Author Name Unknown Address Unknown Organization K01:[place] [facility] [place] [address] [place] [address] Laboratory Report Ordering Provider Test Date Status CHARLENE CONTRERAS 01/12/2023 16:15:29 Final Post Filter Ionized Calcium Observation Date Value Abnormality Reference (Units ) Status Calcium.ionized [Moles/volume] in Blood drawn from CRRT circuit 01/12/2023 16:15:29 0.52 Above high normal 0.25-0.50 (mmol/L) Final Performing Location [place] [facility] [place] [address] [place] [address]
--- OUTSIDE RECORDS SUMMARY | 2023-03-09 14:34 | External Medical Summary ---
Author Name Unknown Address Unknown Organization : Laboratory Report Ordering Provider Test Date Status SERA LESLIE 01/12/2023 14:51:23 Final Observation Date Value Abnormality Reference (Units ) Status Glucose Point of Care 01/12/2023 14:51:23 149 Above high normal 70-120 (mg/dL) Final Performing Location
--- OUTSIDE RECORDS SUMMARY | 2023-03-09 14:34 | External Medical Summary ---
Author Name Unknown Address Unknown Organization : Laboratory Report Ordering Provider Test Date Status SERA LESLIE 01/12/2023 12:07:44 Final Observation Date Value Abnormality Reference (Units ) Status Glucose Point of Care 01/12/2023 12:07:44 128 Above high normal 70-120 (mg/dL) Final Performing Location
--- OUTSIDE RECORDS SUMMARY | 2023-03-09 14:34 | External Medical Summary ---
Author Name Unknown Address Unknown Organization : Laboratory Report Ordering Provider Test Date Status SERA LESLIE 01/12/2023 17:27:17 Final Observation Date Value Abnormality Reference (Units ) Status Glucose Point of Care 01/12/2023 17:27:17 127 Above high normal 70-120 (mg/dL) Final Performing Location
--- OUTSIDE RECORDS SUMMARY | 2023-03-09 14:34 | External Medical Summary ---
Author Name Unknown Address Unknown Organization : Laboratory Report Ordering Provider Test Date Status SERA LESLIE 01/12/2023 14:11:58 Final Observation Date Value Abnormality Reference (Units ) Status Glucose Point of Care 01/12/2023 14:11:58 125 Above high normal 70-120 (mg/dL) Final Performing Location
--- OUTSIDE RECORDS SUMMARY | 2023-03-09 14:34 | External Medical Summary ---
Author Name Unknown Address Unknown Organization K01:LAB[place]ORY [facility] [place] [address] [place] [address] Laboratory Report Ordering Provider Test Date Status CHARLENE CONTRERAS 01/12/2023 13:07:16 Final Post Filter Ionized Calcium Observation Date Value Abnormality Reference (Units ) Status Calcium.ionized [Moles/volume] in Blood drawn from CRRT circuit 01/12/2023 13:07:16 0.47 0.25-0.50 (mmol/L) Final Performing Location LABOR[place]ORY [facility] [place] [address] [place] [address]
--- OUTSIDE RECORDS SUMMARY | 2023-03-09 14:34 | External Medical Summary ---
Author Name Unknown Address Unknown Organization K01:[place]ORY [facility] [place] [address] [place] [address] Laboratory Report Ordering Provider Test Date Status CHARLENE CONTRERAS 01/12/2023 16:15:29 Final CRRT Labs: Check at initiati on of CRRT, One hour after CRRT and Every 6 hours
Labs to be Drawn Peripherally Observation Date Value Abnormality Reference (Units ) Status Magnesium 01/12/2023 16:15:29 2.0 1.5-2.6 (m g/dL) Final Performing Location LABORATORY [facility] [place] [address] [place] [address]
--- OUTSIDE RECORDS SUMMARY | 2023-03-09 14:34 | External Medical Summary ---
Author Name Unknown Address Unknown Organization K01:LABORATORY [facility] - [address] [place] [address] Laboratory Report Ordering Provider Test Date Status MARKCONSTANTINESIRKHRIS 01/12/2023 16:15:29 Final Observation Date Value Abnormality Reference (Units ) Status Lactic Acid 01/12/2023 16:15:29 1.3 0.4-2.0 (mmol/L) Final Performing Location LABORATORY [facility] - [address] [place] [address]
--- OUTSIDE RECORDS SUMMARY | 2023-03-09 14:35 | External Medical Summary ---
Author Name Unknown Address Unknown Organization K01:LABORATORY [facility] [place] [address] [place] [address] Laboratory Report Ordering Provider Test Date Status CHARLENE CONTRERAS 01/12/2023 10:15:01 Final CRRT Labs: Check at initiati on of CRRT, One hour after CRRT and Every 6 hours
Labs to be Drawn Peripherally Observation Date Value Abnormality Reference (Units ) Status Phosphate 01/12/2023 10:15:01 3.7 2.5-4.8 (m g/dL) Final Performing Location LABORATORY [facility] [place] - [address] [place] [address]
--- OUTSIDE RECORDS SUMMARY | 2023-03-09 14:35 | External Medical Summary ---
Author Name Unknown Address Unknown Organization K01:[place] [facility] [place] [address] [place] [address] Laboratory Report Ordering Provider Test Date Status CHARLENE CONTRERAS 01/12/2023 10:15:01 Final CRRT Labs: Check at initiati on of CRRT, One hour after CRRT and Every 6 hours
Labs to be Drawn Peripherally
Send in a separate tube. Observation Date Value Abnormality Reference (Units ) Status Calcium.ionized [Moles/volume] in Blood by Ion-selective membrane electrode (ISE) 01/12/2023 10:15:01 1.15 1.13-1.32 (mmol/L) Final Performing Location LAB[place]ORY [facility] [place] [address] [place] [address]
--- OUTSIDE RECORDS SUMMARY | 2023-03-09 14:35 | External Medical Summary ---
Author Name Unknown Address Unknown Organization K01:LABORATORY [facility] [place] [facility] [place] [address] Laboratory Report Ordering Provider Test Date Status CHARLENE CONTRERAS 01/12/2023 03:48:37 Final CRRT Labs: check once daily if not done already
Labs to be Drawn Peripherally

Warfarin Therapy
INR: 2.0-3.0 conventional anticoagulation
INR: 2.5-3.5 high intensity anticoagulation Observation Date Value Abnormality Reference (Units ) Status PT 01/12/2023 03:48:37 14.8 11.6-15.2 (seconds) Final INR 01/12/2023 03:48:37 1.1 0.8-1.2 Final Performing Location LABORATORY [facility] [place] - [address] [place] [address]
--- OUTSIDE RECORDS SUMMARY | 2023-03-09 14:35 | External Medical Summary ---
Author Name Unknown Address Unknown Organization K01:LABORATORY [facility] - [address] [place] [address] Laboratory Report Ordering Provider Test Date Status SONYA FLOYD 01/12/2023 03:48:37 Final Observation Date Value Abnormality Reference (Units ) Status Magnesium 01/12/2023 03:48:37 1.7 1.5-2.6 (m g/dL) Final Performing Location LABORATORY [facility] - [address] [place] [address]
--- OUTSIDE RECORDS SUMMARY | 2023-03-09 14:35 | External Medical Summary ---
Author Name Unknown Address Unknown Organization K01:LABORATORY [facility] [place] - [address] [place] [address] Laboratory Report Ordering Provider Test Date Status CHARLENE CONTRERAS 01/12/2023 10:15:01 Final CRRT Labs: Check at initiati on of CRRT, One hour after CRRT and Every 6 hours
Labs to be Drawn Peripherally Observation Date Value Abnormality Reference (Units ) Status BUN 01/12/2023 10:15:01 13 6-20 (mg/dL) Final Creatinine 01/12/2023 10:15:01 1.0 0.5-1.0 (mg/dL) Final Glomerular filtration rate/1.73 sq M.predicted [Volume Rate/Area] in Serum, Plasma or Blood by Creatinine-based formula (CKD-EPI) 01/12/2023 10:15:01 67 >=60 (mL/min) Final eGFR is calculated based on the CKD-EPI 2020 equation SODIUM 01/12/2023 10:15:01 135 135-146 (m mol/L) Final Potassium 01/12/2023 10:15:01 3.4 Below low normal 3.5 -5.1 (mmol/L) Final Cl 01/12/2023 10:15:01 98 98-107 (mm ol/L) Final CO2 01/12/2023 10:15:01 19 Below low normal 22- 32 (mmol/L) Final Anion gap 01/12/2023 10:15:01 18 Above high normal 7- 15 (mmol/L) Final Glucose 01/12/2023 10:15:01 119 70-120 (mg /dL) Final Calcium 01/12/2023 10:15:01 11.3 Above high normal 8. 4-10.2 (mg/dL) Final Performing Location LABORATORY [facility] [place] - [address] [place] [address]
--- OUTSIDE RECORDS SUMMARY | 2023-03-09 14:35 | External Medical Summary ---
Author Name Unknown Address Unknown Organization K01:LABORATORY [facility] [place] - [address] [place] [address] Laboratory Report Ordering Provider Test Date Status CHARLENE CONTRERAS 01/12/2023 04:02:33 Correction Post Filter Ionized Calcium Observation Date Value Abnormality Reference (Units ) Status Calcium.ionized [Moles/volume] in Blood drawn from CRRT circuit 01/12/2023 04:02:33 0.50 0.25-0.50 (mmol/L) Correction Changed result: Previously r eported as 0.80 mmol/L on 01/12/2023 at 0426 EDT. Performing Location LABORATORY [facility] [place] - [address] [place] [address]
--- OUTSIDE RECORDS SUMMARY | 2023-03-09 14:35 | External Medical Summary ---
Author Name Unknown Address Unknown Organization K01:LABORATORY [facility] [place] [address] [place] [address] Laboratory Report Ordering Provider Test Date Status LAURIE FLOYDBetzaida 01/12/2023 03:48:37 Final Observation Date Value Abnormality Reference (Units ) Status T3, Free 01/12/2023 03:48:37 2.4 Below low normal 2.5 -4.3 (pg/mL) Final Performing Location LABORATORY [facility] [place] - [address] [place] [address]
--- OUTSIDE RECORDS SUMMARY | 2023-03-09 14:35 | External Medical Summary ---
Author Name Unknown Address Unknown Organization K01:LABORATORY [facility] [place] - [facility] [address] [facility] [address] Laboratory Report Ordering Provider Test Date Status CHARLENE CONTRERAS 01/12/2023 03:48:37 Correction CRRT Labs: Check at initiati on of CRRT, One hour after CRRT and Every 6 hours
Labs to be Drawn Peripherally
Send in a separate tube. Observation Date Value Abnormality Reference (Units ) Status Calcium.ionized [Moles/volume] in Blood by Ion-selective membrane electrode (ISE) 01/12/2023 03:48:37 Correction Analytical issue, result rem vasquez.
Changed result: Previously reported as 1.16 mmol/L on 01/12/2023 at 0358 EDT. Performing Location LABORATORY [facility] [place] - [facility] [place] [address] [facility] [address] [facility] [address]
--- OUTSIDE RECORDS SUMMARY | 2023-03-09 14:35 | External Medical Summary ---
Author Name Unknown Address Unknown Organization [id number]:LABORATORY [facility] [place] - [address] [facility] [place] [address] Laboratory Report Ordering Provider Test Date Status CHARLENE CONTRERAS 01/12/2023 03:48:37 Final CRRT Labs: check once daily if not done already
Labs to be Drawn Peripherally Observation Date Value Abnormality Reference (Units ) Status SYNC LEUKOCYTES IN BLOOD BY AUTOMATED COUNT 01/12/2023 03:48:37 22.94 Above high normal 4.00-10.80 (K/uL) Final Segs 01/12/2023 03:48:37 84.0 Above high normal 40.0-75.0 (%) Final Lymphs % 01/12/2023 03:48:37 7.2 Below low normal 18.0-42.0 (%) Final Monos 01/12/2023 03:48:37 7.0 1.0-11.0 (%) Final Eosinophils 01/12/2023 03:48:37 0.0 0.0-6.0 (%) Final Basos 01/12/2023 03:48:37 0.1 0.0-2.0 (%) Final Immature Granulocyte, Percent 01/12/2023 03:48:37 1.7 0.0-2.0 (%) Final Absolute Segs 01/12/2023 03:48:37 19.25 Above high normal 1.80-7.70 (K/uL) Final Lymphs, absolute 01/12/2023 03:48:37 1.65 1.00-4.80 (K/ul) Final Monos, Abs 01/12/2023 03:48:37 1.60 Above high normal 0.00-1.10 (K/uL) Final Eos, Abs 01/12/2023 03:48:37 0.01 0.00-0.70 (K/uL) Final Basos, Abs 01/12/2023 03:48:37 0.03 0.00-0.20 (K/uL) Final Immature Granulocytes, Number 01/12/2023 03:48:37 0.40 Above high normal 0.00-0.20 (K/uL) Final Performing Location LABORATORY [facility] [place] - [address] [facility] [address]
--- OUTSIDE RECORDS SUMMARY | 2023-03-09 14:35 | External Medical Summary ---
Author Name Unknown Address Unknown Organization K01:LAB[facility]ATORY [facility] - [address] [place] [address] Laboratory Report Ordering Provider Test Date Status SONYA FLOYD 01/12/2023 03:48:37 Final Observation Date Value Abnormality Reference (Units ) Status Phosphate 01/12/2023 03:48:37 3.7 2.5-4.8 (m g/dL) Final Performing Location LAB[facility]ATORY [facility] - [address] [place] [address]
--- OUTSIDE RECORDS SUMMARY | 2023-03-09 14:35 | External Medical Summary ---
Author Name Unknown Address Unknown Organization K01:LABORATORY [facility] - [address] [place] [address] Laboratory Report Ordering Provider Test Date Status SONYA FLOYD 01/12/2023 03:48:37 Final Observation Date Value Abnormality Reference (Units ) Status T4, Free 01/12/2023 03:48:37 1.3 0.9-1.7 (n g/dL) Final Performing Location [facility] - [address] [place] [address]
--- OUTSIDE RECORDS SUMMARY | 2023-03-09 14:35 | External Medical Summary ---
Author Name Unknown Address Unknown Organization [id number]:LABORATORY [facility] [place] - [address] [place] [address] Laboratory Report Ordering Provider Test Date Status CHARLENE CONTRERAS 01/12/2023 10:15:01 Final CRRT Labs: Check at initiati on of CRRT, One hour after CRRT and Every 6 hours
Labs to be Drawn Peripherally Observation Date Value Abnormality Reference (Units ) Status Magnesium 01/12/2023 10:15:01 1.9 1.5-2.6 (m g/dL) Final Performing Location LABORATORY [facility] [place] - [address] [place] [address]
--- OUTSIDE RECORDS SUMMARY | 2023-03-09 14:35 | External Medical Summary ---
Author Name Unknown Address Unknown Organization : Laboratory Report Ordering Provider Test Date Status SERA LESLIE 01/11/2023 18:20:16 Final Observation Date Value Abnormality Reference (Units ) Status Glucose Point of Care 01/11/2023 18:20:16 147 Above high normal 70-120 (mg/dL) Final Performing Location
--- OUTSIDE RECORDS SUMMARY | 2023-03-09 14:35 | External Medical Summary ---
Author Name Unknown Address Unknown Organization : Laboratory Report Ordering Provider Test Date Status SERA LESLIE 01/11/2023 22:19:34 Final Observation Date Value Abnormality Reference (Units ) Status Glucose Point of Care 01/11/2023 22:19:34 135 Above high normal 70-120 (mg/dL) Final Performing Location
--- OUTSIDE RECORDS SUMMARY | 2023-03-09 14:35 | External Medical Summary ---
Author Name Unknown Address Unknown Organization : Laboratory Report Ordering Provider Test Date Status SERA LESLIE 01/11/2023 23:52:40 Final Observation Date Value Abnormality Reference (Units ) Status Glucose Point of Care 01/11/2023 23:52:40 135 Above high normal 70-120 (mg/dL) Final Performing Location
--- OUTSIDE RECORDS SUMMARY | 2023-03-09 14:35 | External Medical Summary ---
Author Name Unknown Address Unknown Organization : Laboratory Report Ordering Provider Test Date Status SERA LESLIE 01/12/2023 09:11:32 Final Observation Date Value Abnormality Reference (Units ) Status Glucose Point of Care 01/12/2023 09:11:32 134 Above high normal 70-120 (mg/dL) Final Performing Location
--- OUTSIDE RECORDS SUMMARY | 2023-03-09 14:35 | External Medical Summary ---
Author Name Unknown Address Unknown Organization K01:[place]ORY [facility] [place] [address] [facility] [place] [address] Laboratory Report Ordering Provider Test Date Status DEBBIE LEHMAN 01/12/2023 03:50:59 Final Observation Date Value Abnormality Reference (Units ) Status Body temperature 01/12/2023 03:50:59 37.0 (C) Final pH of Arterial blood 01/12/2023 03:50:59 7.390 7.350-7.450 (units) Final Carbon dioxide [Partial pressure] in Arterial blood 01/12/2023 03:50:59 34.2 Below low normal 35.0-45.0 (mmHg) Final Oxygen [Partial pressure] in Arterial blood 01/12/2023 03:50:59 134.0 Above high normal 75.0-100.0 (mmHg) Final Base excess, Arterial 01/12/2023 03:50:59 -3.7 Below low normal -2.0-2.0 (mmol/L) Final Hemoglobin [Mass/volume] in Blood by Oximetry 01/12/2023 03:50:59 8.8 Below low normal 12.0-15.3 (g/dL) Final Oxyhemoglobin, Arterial (FO2HB) 01/12/2023 03:50:59 97.1 94.0-99.0 (% total Hgb) Final Carboxyhemoglobin 01/12/2023 03:50:59 1.2 <=1.5 (% total Hgb) Final Smokers: 0-9.0 % Methemoglobin 01/12/2023 03:50:59 0.6 <=1.5 (% total Hgb) Final Deoxyhemoglobin/Hemog lobin.total in Arterial blood 01/12/2023 03:50:59 1.1 0.0-5.0 (% total Hgb) Final Oxygen content in Arterial blood 01/12/2023 03:50:59 12.3 Below low normal 15.0-24.0 (%vol) Final Oxygen/Total gas setting [Volume Fraction] Ventilator 01/12/2023 03:50:59 40% vent (%) Final O2 FLOW, ARTERIAL - [facility] 01/12/2023 03:50:59 Not Provided (L/min) Final Bicarbonate, Venous, POC (i-STAT) 01/12/2023 03:50:59 20.2 Below low normal 23.0-31.0 (mmol/L) Final Performing Location [place] [facility] [place] [facility] [address] [facility] [address]
--- OUTSIDE RECORDS SUMMARY | 2023-03-09 14:35 | External Medical Summary ---
Author Name Unknown Address Unknown Organization K01:[place] [facility] [place] [address] [place] [address] Laboratory Report Ordering Provider Test Date Status CHARLENE CONTRERAS 01/11/2023 22:03:01 Final CRRT Labs: Check at initiati on of CRRT, One hour after CRRT and Every 6 hours
Labs to be Drawn Peripherally Observation Date Value Abnormality Reference (Units ) Status BUN 01/11/2023 22:03:01 13 6-20 (mg/dL) Final Creatinine 01/11/2023 22:03:01 1.0 0.5-1.0 (mg/dL) Final Glomerular filtration rate/1.73 sq M.predicted [Volume Rate/Area] in Serum, Plasma or Blood by Creatinine-based formula (CKD-EPI) 01/11/2023 22:03:01 63 >=60 (mL/min) Final eGFR is calculated based on the CKD-EPI 2020 equation SODIUM 01/11/2023 22:03:01 135 135-146 (m mol/L) Final Potassium 01/11/2023 22:03:01 3.8 3.5-5.1 (m mol/L) Final Cl 01/11/2023 22:03:01 98 98-107 (mm ol/L) Final CO2 01/11/2023 22:03:01 18 Below low normal 22- 32 (mmol/L) Final Anion gap 01/11/2023 22:03:01 19 Above high normal 7- 15 (mmol/L) Final Glucose 01/11/2023 22:03:01 154 Above high normal 70 -120 (mg/dL) Final Calcium 01/11/2023 22:03:01 10.8 Above high normal 8. 4-10.2 (mg/dL) Final Performing Location [place] [facility] [place] [address] [place] [address]
--- OUTSIDE RECORDS SUMMARY | 2023-03-09 14:35 | External Medical Summary ---
Author Name Unknown Address Unknown Organization K01:LABORATORY [facility] [place] - [address] [place] [address] Laboratory Report Ordering Provider Test Date Status SONYA FLOYD 01/12/2023 03:48:37 Final Observation Date Value Abnormality Reference (Units ) Status BUN 01/12/2023 03:48:37 15 6-20 (mg/dL) Final Creatinine 01/12/2023 03:48:37 1.0 0.5-1.0 (mg/dL) Final Glomerular filtration rate/1.73 sq M.predicted [Volume Rate/Area] in Serum, Plasma or Blood by Creatinine-based formula (CKD-EPI) 01/12/2023 03:48:37 64 >=60 (mL/min) Final eGFR is calculated based on the CKD-EPI 2020 equation SODIUM 01/12/2023 03:48:37 137 135-146 (m mol/L) Final Potassium 01/12/2023 03:48:37 4.2 3.5-5.1 (m mol/L) Final Cl 01/12/2023 03:48:37 99 98-107 (mm ol/L) Final CO2 01/12/2023 03:48:37 19 Below low normal 22- 32 (mmol/L) Final Anion gap 01/12/2023 03:48:37 19 Above high normal 7- 15 (mmol/L) Final Glucose 01/12/2023 03:48:37 157 Above high normal 70 -120 (mg/dL) Final Calcium 01/12/2023 03:48:37 11.5 Above high normal 8. 4-10.2 (mg/dL) Final Performing Location LABORATORY [facility] [place] - [address] [place] [address]
--- OUTSIDE RECORDS SUMMARY | 2023-03-09 14:35 | External Medical Summary ---
Author Name Unknown Address Unknown Organization K01:LABORATORY [facility] [place] - [address] [place] [address] Laboratory Report Ordering Provider Test Date Status CHARLENE CONTRERAS 01/11/2023 19:50:49 Final Post Filter Ionized Calcium Observation Date Value Abnormality Reference (Units ) Status Calcium.ionized [Moles/volume] in Blood drawn from CRRT circuit 01/11/2023 19:50:49 0.50 0.25-0.50 (mmol/L) Final Performing Location LABORATORY [facility] [place] - [address] [place] [address]
--- OUTSIDE RECORDS SUMMARY | 2023-03-09 14:35 | External Medical Summary ---
Author Name Unknown Address Unknown Organization K01:[place] [facility] [place] - [facility] [place] [address] Laboratory Report Ordering Provider Test Date Status CHARLENE CONTRERAS 01/11/2023 22:03:01 Final CRRT Labs: check once daily if not done already
Labs to be Drawn Peripherally

Anticoagulation may affect testing. Refer to [facility] Test Catalog for a list of effects. Observation Date Value Abnormality Reference (Units ) Status aPTT panel - Platelet poor plasma 01/11/2023 22:03:01 32 21-38 (seconds) Final Performing Location LABORATORY [facility] [place] - [facility] [place] [address]
--- OUTSIDE RECORDS SUMMARY | 2023-03-09 14:35 | External Medical Summary ---
Author Name Unknown Address Unknown Organization K01:LABORATORY [facility] [place] - [facility] [address] [place] [place] [address] Laboratory Report Ordering Provider Test Date Status LESA JEAN 01/11/2023 22:33:47 Final Observation Date Value Abnormality Reference (Units ) Status WBC, Total 01/11/2023 22:33:47 20.64 Above high normal 4.00-10.80 (K/uL) Final RBC 01/11/2023 22:33:47 2.82 3.85-5.15 (M/uL) Final Hemoglobin 01/11/2023 22:33:47 8.4 Below low normal 12.0-15.3 (g/dL) Final HCT 01/11/2023 22:33:47 26.9 Below low normal 36.0-45.2 (%) Final MCV 01/11/2023 22:33:47 95.4 81.5-97.5 (fL) Final MCH 01/11/2023 22:33:47 29.8 27.0-34.0 (pg) Final MCHC 01/11/2023 22:33:47 31.2 32.0-36.0 (g/dL) Final RDW 01/11/2023 22:33:47 17.5 11.5-15.5 (%) Final Platelets 01/11/2023 22:33:47 162 140-400 (K/uL) Final MPV 01/11/2023 22:33:47 11.1 6.6-11.1 (fL) Final Nucleated erythrocytes/100 leukocytes [Ratio] in Blood by Automated count 01/11/2023 22:33:47 0 <=0 (/100 WBCs) Final Performing Location LABORATORY [facility] [place] - [address] [address]
--- OUTSIDE RECORDS SUMMARY | 2023-03-09 14:35 | External Medical Summary ---
Author Name Unknown Address Unknown Organization K01:[place] [facility] [place] [address] [place] [address] Laboratory Report Ordering Provider Test Date Status CHARLENE CONTRERAS 01/11/2023 22:03:01 Final CRRT Labs: Check at initiati on of CRRT, One hour after CRRT and Every 6 hours
Labs to be Drawn Peripherally Observation Date Value Abnormality Reference (Units ) Status Phosphate 01/11/2023 22:03:01 3.2 2.5-4.8 (m g/dL) Final Performing Location [place] [facility] [place] [address] [place] [address]
--- OUTSIDE RECORDS SUMMARY | 2023-03-09 14:35 | External Medical Summary ---
Author Name Unknown Address Unknown Organization : Laboratory Report Ordering Provider Test Date Status SERA LESLIE 01/12/2023 06:41:59 Final Observation Date Value Abnormality Reference (Units ) Status Glucose Point of Care 01/12/2023 06:41:59 168 Above high normal 70-120 (mg/dL) Final Performing Location
--- OUTSIDE RECORDS SUMMARY | 2023-03-09 14:35 | External Medical Summary ---
Author Name Unknown Address Unknown Organization : Laboratory Report Ordering Provider Test Date Status SERA LESLIE 01/12/2023 04:22:36 Final Observation Date Value Abnormality Reference (Units ) Status Glucose Point of Care 01/12/2023 04:22:36 131 Above high normal 70-120 (mg/dL) Final Performing Location
--- OUTSIDE RECORDS SUMMARY | 2023-03-09 14:35 | External Medical Summary ---
Author Name Unknown Address Unknown Organization K01:LAB[place]ATORY [facility] [place] [facility] [address] [facility] [place] [address] Laboratory Report Ordering Provider Test Date Status CHARLENE CONTRERAS 01/12/2023 03:48:37 Final CRRT Labs: check once daily if not done already
Labs to be Drawn Peripherally

Anticoagulation may affect testing. Refer to [facility] Test Catalog for a list of effects. Observation Date Value Abnormality Reference (Units ) Status aPTT panel - Platelet poor plasma 01/12/2023 03:48:37 30 21-38 (seconds) Final Performing Location LABORATORY [facility] [place] - [facility] [address] [facility] [address]
--- OUTSIDE RECORDS SUMMARY | 2023-03-09 14:35 | External Medical Summary ---
Author Name Unknown Address Unknown Organization K01:LABORATORY [facility] [place] - [address] [place] [address] Laboratory Report Ordering Provider Test Date Status EVERETTKHRIS 01/12/2023 10:15:01 Final Observation Date Value Abnormality Reference (Units ) Status Lactic Acid 01/12/2023 10:15:01 1.1 0.4-2.0 (mmol/L) Final Performing Location LAB[facility] - [address] [place] [address]
--- OUTSIDE RECORDS SUMMARY | 2023-03-09 14:35 | External Medical Summary ---
Author Name Unknown Address Unknown Organization K01:LABORATORY [facility] [place] - [address] [place] [address] Laboratory Report Ordering Provider Test Date Status CHARLENE CONTRERAS 01/12/2023 05:56:31 Final Post Filter Ionized Calcium Observation Date Value Abnormality Reference (Units ) Status Calcium.ionized [Moles/volume] in Blood drawn from CRRT circuit 01/12/2023 05:56:31 0.46 0.25-0.50 (mmol/L) Final Performing Location LABORATORY [facility] [place] - [address] [place] [address]
--- OUTSIDE RECORDS SUMMARY | 2023-03-09 14:35 | External Medical Summary ---
Author Name Unknown Address Unknown Organization K01:LABORATORY [facility] [place] - [address] [place] [address] Laboratory Report Ordering Provider Test Date Status CHARLENE CONTRERAS 01/11/2023 22:03:01 Final CRRT Labs: Check at initiati on of CRRT, One hour after CRRT and Every 6 hours
Labs to be Drawn Peripherally Observation Date Value Abnormality Reference (Units ) Status Magnesium 01/11/2023 22:03:01 1.9 1.5-2.6 (m g/dL) Final Performing Location LABORATORY [facility] [place] - [address] [place] [address]
--- OUTSIDE RECORDS SUMMARY | 2023-03-09 14:36 | External Medical Summary ---
Author Name Unknown Address Unknown Organization K01:LABORATORY [facility] - [address] [place] [address] Laboratory Report Ordering Provider Test Date Status DEBBIE LEHMAN 01/11/2023 16:13:45 Final Observation Date Value Abnormality Reference (Units ) Status Magnesium 01/11/2023 16:13:45 1.8 1.5-2.6 (m g/dL) Final Performing Location LAB[facility] - [address] [place] [address]
--- OUTSIDE RECORDS SUMMARY | 2023-03-09 14:36 | External Medical Summary ---
Author Name Unknown Address Unknown Organization K01:LABORATORY [facility] - [address] [place] [address] Laboratory Report Ordering Provider Test Date Status DEBBIE LEHMAN 01/11/2023 10:22:22 Final Observation Date Value Abnormality Reference (Units ) Status Magnesium 01/11/2023 10:22:22 2.0 1.5-2.6 (m g/dL) Final Performing Location LAB[facility]ATORY [facility] - [address] [place] [address]
--- OUTSIDE RECORDS SUMMARY | 2023-03-09 14:36 | External Medical Summary | Summary of Care ---
Author Name Unknown Organization [facility] Address [address] [place] [address] Phone [phone] Care Team Providers Care Baggage Agent Supervisor Name Role Phone Mallika Sanderson MD Primary Care Provide r Encounter Details Date Type Department Care Team Description 01/10/2023 CardioDiagnostic Study Pulmonary Medicine, [place] [address] [place] [address] Moo Sykes MD [address] [place] [address] EKG Report Allergies No known active allergiesdocumented as of this encounter (statuses as of 01/11/2023) Medications Medication Sig Dispensed Refills Start Date [...] Suspended Additional Information Patient taking differently:2 Puff [id number] PRN, Reported on 12/07/2015 levothyroxine (LEVOXYL) 175 [...] for Wheezing. 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 01/08/2023 Shock 01/08/2023 ESRD (end stage renal disease) on dialys is 01/07/2023 Pneumonia due to COVID-19 virus 01/07/20 [...] hypoventilation syndrome 014 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 Respiratory failure, [id number] Unresponsive episode 04/11/2013 S/P mitral valve repair [...] as of this encounter (statuses as of 01/11/2023) Resolved Problems Problem Noted Date Resolved Date Heart block 02/04/2013 02/12/2018 [employer] Other*[id number] 201205/16/2016 Overview: Study Title: [employer] Markers for Patients with Cardiovascular Disease Project # [id number] Pole Peeling Machine Operator: Eduarda Mcgrath MD [phone] S/P tricuspid valve replacement 01/13/2013 01/27/2013 S/P [...] as of this encounter (statuses as of 01/11/2023) Immunizations Name Administration Dates Next Due COVID-19 mRNA, LNP-s, No Pre serve, 2-Dose Series ([employer]) 07/28/2020,07/07/2020 COVID-19, LNP-s, No Preserve , Kuldip-sucrose, Ages 12+ (Pfizer) 07/19/2021 Covid-19, Mrna, Lnp-s, Pf, B ivalent, 30 Mcg, IM, 12 yrs and above ([employer]) 03/07/2022 H1N1 2009 Influenza, IM 05/04/2009 Hepatitis [...] on file documented as of this encounter Procedure Notes * Mak Hendrix DO - 01/10/2023 5:41 AM EDTAssociated Order(s): EKG REPORT REASON FOR STUDY: CONCLUSIONS: Ventricular-paced rhythm When compared with ECG of 09-JAN-2023 16:19, (unconfirmed) Vent. rate has increased BY 8 BPM Ventricular Rate: 94 QRS Duration: 114 QT/QTc: 420/525 ms P-R-T Normanna: 0 : -43 : 156 degrees documented in this encounter Plan of Treatment Upcoming Encounters Date Type Specialty Care Team Description 02/02/2023 Cardiac Studies Cardiology Kelvin, Pacer Clinic [facility] [address] [place] [address] 02/02/2023 Office Visit Cardiology Mila Gonsalves PA-C [address] [place] [id number] Health Maintenance Due Date Last Done Comments DISCUSS TOBACCO CESSATION (REFER TO SMARTSET #[id number]) 1965 Alpha-1 Antitrypsin 1982 Zoster Vaccines (1 [...] ASSESSMENT COMPLETED IN PAST YEAR FOR COPD 01/12/2024 01/11/2023 Diabetes Screening 01/11/2026 01/11/2023, 1 , 01/10/2023, Additional history exists DTaP,Tdap,and Td Vaccines (3 [...] this encounter Medical Devices Implanted Type Area Macroeconomics Professor Device Identifier Shelf Expiration Date Model / Serial / Lot Ring Tricuspid 28mm - [id number] Implanted:Qty: 1 on 12/27/2012 at [place] [facility] [place] Right: Heart [employer] ARIEL 04/17/2017 [id number] / [id number] / [id number] documented as of this encounter Procedures Procedure Name Priority Date/Time Associated Diagnosis Comments EKG REPORT 01/10/2023 5:41 AM EDT documented in this encounter Results * EKG REPORT (01/10/2023 5:41 AM EDT) 01/10/2023 5:41 AM EDT Procedure Note Mak Hendrix, DO - 01/10/2023 5:41 AM EDT REASON FOR STUDY: CONCLUSIONS: Ventricular-paced rhythm When compared with ECG of 09-JAN-2023 16:19, (unconfirmed) Vent. rate has increased BY 8 BPM Ventricular Rate: 94 QRS Duration: 114 QT/QTc: 420/525 ms P-R-T Normanna: 0 : -43 : 156 degrees Moo Sykes MD EKG documented in this encounter Additional Health Concerns Infection Onset [...] the patient have Health Care Power of Decorator Consultant? No Care Teams Baggage Agent Supervisor Relationship Specialty Start Date End Date Mallika Sanderson MD [address] [place] [address] PCP - General Internal Medicine 12/08/22 documented as of this encounter
--- OUTSIDE RECORDS SUMMARY | 2023-03-09 14:36 | External Medical Summary ---
Author Name Unknown Address Unknown Organization K01:LABORATORY [facility] [place] [address] [place] [address] Laboratory Report Ordering Provider Test Date Status CHARLENE CONTRERAS 01/11/2023 10:22:22 Final Post Filter Ionized Calcium Observation Date Value Abnormality Reference (Units ) Status Calcium.ionized [Moles/volume] in Blood drawn from CRRT circuit 01/11/2023 10:22:22 0.50 0.25-0.50 (mmol/L) Final Performing Location LABORATORY [facility] [place] [address] [place] [address]
--- OUTSIDE RECORDS SUMMARY | 2023-03-09 14:36 | External Medical Summary ---
Author Name Unknown Address Unknown Organization K01:LABORATORY [facility] - [address] [place] [address] Laboratory Report Ordering Provider Test Date Status DEBBIE LEHMAN 01/11/2023 16:13:45 Final Observation Date Value Abnormality Reference (Units ) Status Phosphate 01/11/2023 16:13:45 3.1 2.5-4.8 (m g/dL) Final Performing Location [facility] - [address] [place] [address]
--- OUTSIDE RECORDS SUMMARY | 2023-03-09 14:36 | External Medical Summary ---
Author Name Unknown Address Unknown Organization K01:[place] [facility] [place] [address] [place] [address] Laboratory Report Ordering Provider Test Date Status CHARLENE CONTRERAS 01/11/2023 16:13:45 Final Post Filter Ionized Calcium Observation Date Value Abnormality Reference (Units ) Status Calcium.ionized [Moles/volume] in Blood drawn from CRRT circuit 01/11/2023 16:13:45 1.08 Above high normal 0.25-0.50 (mmol/L) Final Performing Location [facility] [facility] [place] [address] [place] [address]
--- OUTSIDE RECORDS SUMMARY | 2023-03-09 14:36 | External Medical Summary | Summary of Care ---
Author Name Unknown Organization [facility] Address [address] [place] [address] Phone [phone] Care Team Providers Care Chemical Treatment Plant Technician Name Role Phone Mallika Sanderson MD Primary Care Provide r Reason for Visit * Auth/Cert Specialty Diagnoses / Procedures Referred By Otilia t Referred To Contact Diagnoses Septic shock (HCC) Sepsis due to pneumonia (HCC) ESRD; septic Shock Referral ID Status Reason Start Date Expiration Date Visits Re quested Visits Authorized [id number] Encounter Details Date Type Department Care Team Description 01/10/2023 Hospital Encounter Cardiac Studies [facility] [address] [address] [place] [address] Allergies No known active allergiesdocumented as of [...] mouth 4 times a day 1 Inhaler 03/28/2012 Suspended Additional Information Patient taking differently: [...] Suspended Additional Information Patient taking differently:2 Puff [id number] PRN, Reported on 12/07/2015 levothyroxine (LEVOXYL) 175 [...] Noted Date 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 renal 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 01/08/2023 Encephalopathy acute 01/08/2023 [...] hypoventilation syndrome 014 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 Respiratory failure, [id number] Unresponsive episode 04/11/2013 S/P mitral valve repair [...] Heart block 02/04/2013 02/12/2018 [employer] Other*[id number] 201205/16/2016 Overview: Study Title: Genomic Markers for Patients with Cardiovascular Disease Project # [id number] Brick Dropper: Eduarda Mcgrath MD [phone] S/P tricuspid valve replacement 01/13/2013 01/27/2013 S/P [...] inactive term Obesity, BMI not known 01/11/2009 03/ 0 Overview: Per Obesity Taxonomy Kidney disease, [...] mRNA, LNP-s, No Pre serve, 2-Dose Series ([employer]) 07/28/2020,07/07/2020 COVID-19, LNP-s, No Preserve , Kuldip-sucrose, Ages 12+ (Pfizer) 07/19/2021 Covid-19, Mrna, Lnp-s, Pf, B ivalent, 30 Mcg, IM, 12 yrs and above ([employer]) 03/07/2022 H1N1 2009 Influenza, IM 05/04/2009 Hepatitis [...] on file documented as of this encounter Plan of Treatment Upcoming Encounters Date Type Specialty Care Team Description 02/02/2023 Cardiac Studies [facility] [address] [place] [id number] 02/02/2023 Office Visit Cardiology Mila Gonsalves PA-C [address] [place] [id number] Health Maintenance Due Date Last Done Comments DISCUSS TOBACCO CESSATION (REFER TO SMARTSET #3298) 1965 Alpha-1 Antitrypsin 1982 Zoster Vaccines (1 [...] this encounter Medical Devices Implanted Type Area Strainer Tender Device Identifier Shelf Expiration Date Model / Serial / Lot Ring Tricuspid 28mm - [id number] Implanted:Qty: 1 on 12/27/2012 at [place] [facility] [place] Right: [employer] ARIEL 04/17/2017 [id number] / [id number] / [id number] documented as of this encounter Procedures Procedure Name Priority Date/Time Associated Diagnosis Comments ECHO, TTE, LIMITED STAT 01/10/2023 1: 30 PM EDT CHF (congestive heart failure) (HCC) documented in this encounter Visit Diagnoses Diagnosis Septic shock (HCC)- Primary Unspecified septicemia Heart failure, systolic and diastolic, acute on chronic (HCC) Acute on chronic combined systolic and diastolic heart failure documented in this encounter Administered Medications Inactive Administered Medications - up to 3 most recent administrations Medication Order MAR Action Action Date Dose Rate Site perflutren lipid microsphere inj SUSP 1.956 mg 1.956 mg, Intravenous, ONCE PRN Other, For Echo Only - Suboptimal Echo Images, Starting on Sun01/10/23 at 1237, Until Sun01/10/23 at 1436, For 2 hours, Administer IVP over 45 seconds, Cardiac Studies_HODHOV Given 01/10/2023 12:39 PM EDT 1.956 mg documented in this encounter Additional Health Concerns [...] the patient have Health Care Power of Seamer Elastic Band? No Care Teams Chemical Treatment Plant Technician Relationship Specialty Start Date End Date Mallika Sanderson MD [address] [place] [address] PCP - General Internal Medicine 12/08/22 documented as of this encounter
--- OUTSIDE RECORDS SUMMARY | 2023-03-09 14:36 | External Medical Summary ---
Author Name Unknown Address Unknown Organization : Laboratory Report Ordering Provider Test Date Status SERA LESLIE 01/11/2023 08:27:06 Final Observation Date Value Abnormality Reference (Units ) Status Glucose Point of Care 01/11/2023 08:27:06 144 Above high normal 70-120 (mg/dL) Final Performing Location
--- OUTSIDE RECORDS SUMMARY | 2023-03-09 14:36 | External Medical Summary ---
Author Name Unknown Address Unknown Organization [id number]:[place] [facility] [facility] [place] [address] [place] [address] Laboratory Report Ordering Provider Test Date Status LESA JEAN 01/11/2023 12:19:11 Final Observation Date Value Abnormality Reference (Units) Status Bacteria identified in Specimen by Culture 01/11/2023 12:19:11 No growth Final Gram Stain 01/11/2023 12:19:11 Purulent specimen, >25 neutrophils/low power microscopic field. Final Gram Stain 01/11/2023 12:19:11 Few Polymorphonuclear leukocytes Final Gram Stain 01/11/2023 12:19:11 No organisms seen Final Test: Culture, Respiratory, Lower, Aerobic
Specimen Source: Tracheal Aspirate
Specimen Type: Lower Respiratory
Specimen Date: 01/11/2023 12:19 PM
Result Date: 01/13/2023 9:45 AM
Result Status: Final result
Resulting Lab: [place] [facility] [facility] [place]
[address]
[place] [address]

CULTURE

No growth

STAIN

Purulent specimen, >25 neutrophils/low power microscopic field.

Few Polymorphonuclear leukocytes

No organisms seen

null Performing Location [facility] [facility] [place] [address] [place] [address]
--- OUTSIDE RECORDS SUMMARY | 2023-03-09 14:36 | External Medical Summary ---
Author Name Unknown Address Unknown Organization K01:LABORATORY [facility] - [address] [place] [address] Laboratory Report Ordering Provider Test Date Status DEBBIE LEHMAN 01/11/2023 10:22:22 Final Observation Date Value Abnormality Reference (Units ) Status Phosphate 01/11/2023 10:22:22 2.8 2.5-4.8 (m g/dL) Final Performing Location LAB[facility]ORY [facility] - [address] [place] [address]
--- OUTSIDE RECORDS SUMMARY | 2023-03-09 14:36 | External Medical Summary ---
Author Name Unknown Address Unknown Organization : Laboratory Report Ordering Provider Test Date Status SERA LESLIE 01/11/2023 11:14:01 Final Observation Date Value Abnormality Reference (Units ) Status Glucose Point of Care 01/11/2023 11:14:01 144 Above high normal 70-120 (mg/dL) Final Performing Location
--- OUTSIDE RECORDS SUMMARY | 2023-03-09 14:36 | External Medical Summary ---
Author Name Unknown Address Unknown Organization K01:LABORATORY [facility] [place] - [address] [place] [address] Laboratory Report Ordering Provider Test Date Status CHARLENE CONTRERAS 01/11/2023 08:34:48 Final Post Filter Ionized Calcium Observation Date Value Abnormality Reference (Units ) Status Calcium.ionized [Moles/volume] in Blood drawn from CRRT circuit 01/11/2023 08:34:48 0.54 Above high normal 0.25-0.50 (mmol/L) Final Performing Location LABORATORY [facility] [place] - [address] [place] [address]
--- OUTSIDE RECORDS SUMMARY | 2023-03-09 14:36 | External Medical Summary ---
Author Name Unknown Address Unknown Organization K01[place] [facility] [place] [address] [facility] [address] Laboratory Report Ordering Provider Test Date Status DEBBIE LEHMAN 01/11/2023 16:13:45 Final Observation Date Value Abnormality Reference (Units ) Status BUN 01/11/2023 16:13:45 13 6-20 (mg/dL) Final Creatinine 01/11/2023 16:13:45 1.1 Above high normal 0.5-1.0 (mg/dL) Final Glomerular filtration rate/1.73 sq M.predicted [Volume Rate/Area] in Serum, Plasma or Blood by Creatinine-based formula (CKD-EPI) 01/11/2023 16:13:45 60 >=60 (mL/min) Final eGFR is calculated based on the CKD-EPI 2020 equation SODIUM 01/11/2023 16:13:45 135 135-146 (m mol/L) Final Potassium 01/11/2023 16:13:45 3.4 Below low normal 3.5 -5.1 (mmol/L) Final Cl 01/11/2023 16:13:45 99 98-107 (mm ol/L) Final CO2 01/11/2023 16:13:45 18 Below low normal 22- 32 (mmol/L) Final Anion gap 01/11/2023 16:13:45 18 Above high normal 7- 15 (mmol/L) Final Glucose 01/11/2023 16:13:45 147 Above high normal 70 -120 (mg/dL) Final Calcium 01/11/2023 16:13:45 10.4 Above high normal 8. 4-10.2 (mg/dL) Final Performing Location [place] [facility] [place] [address] [place] [address]
--- OUTSIDE RECORDS SUMMARY | 2023-03-09 14:36 | External Medical Summary ---
Author Name Unknown Address Unknown Organization : Laboratory Report Ordering Provider Test Date Status SERA LESLIE 01/11/2023 16:15:10 Final Observation Date Value Abnormality Reference (Units ) Status Glucose Point of Care 01/11/2023 16:15:10 138 Above high normal 70-120 (mg/dL) Final Performing Location
--- OUTSIDE RECORDS SUMMARY | 2023-03-09 14:36 | External Medical Summary ---
Author Name Unknown Address Unknown Organization K01:LAB[facility]ATORY [facility] [place] - [address] [place] [address] Laboratory Report Ordering Provider Test Date Status EVERETTKHRIS 01/11/2023 10:22:22 Final Observation Date Value Abnormality Reference (Units ) Status Lactic Acid 01/11/2023 10:22:22 0.8 0.4-2.0 (mmol/L) Final Performing Location LAB[facility]ATORY [facility] - [address] [place] [address]
--- OUTSIDE RECORDS SUMMARY | 2023-03-09 14:36 | External Medical Summary ---
Author Name Unknown Address Unknown Organization : Laboratory Report Ordering Provider Test Date Status SERA LESLIE 01/11/2023 14:12:50 Final Observation Date Value Abnormality Reference (Units ) Status Glucose Point of Care 01/11/2023 14:12:50 133 Above high normal 70-120 (mg/dL) Final Performing Location
--- OUTSIDE RECORDS SUMMARY | 2023-03-09 14:36 | External Medical Summary ---
Author Name Unknown Address Unknown Organization K01:LABORATORY [facility] [place] - [address] [address] Laboratory Report Ordering Provider Test Date Status DEBBIE LEHMAN 01/11/2023 10:22:22 Final Observation Date Value Abnormality Reference (Units ) Status BUN 01/11/2023 10:22:22 14 6-20 (mg/dL) Final Creatinine 01/11/2023 10:22:22 1.1 Above high normal 0.5-1.0 (mg/dL) Final Glomerular filtration rate/1.73 sq M.predicted [Volume Rate/Area] in Serum, Plasma or Blood by Creatinine-based formula (CKD-EPI) 01/11/2023 10:22:22 56 Below low normal >=60 (mL/min) Final eGFR is calculated based on the CKD-EPI 2020 equation SODIUM 01/11/2023 10:22:22 134 Below low normal 135 -146 (mmol/L) Final Potassium 01/11/2023 10:22:22 3.6 3.5-5.1 (m mol/L) Final Cl 01/11/2023 10:22:22 100 98-107 (mm ol/L) Final CO2 01/11/2023 10:22:22 19 Below low normal 22- 32 (mmol/L) Final Anion gap 01/11/2023 10:22:22 15 7-15 (mmol /L) Final Glucose 01/11/2023 10:22:22 163 Above high normal 70 -120 (mg/dL) Final Calcium 01/11/2023 10:22:22 10.2 8.4-10.2 ( mg/dL) Final Performing Location LABORATORY [facility] [place] - [address] [place] [address]
--- OUTSIDE RECORDS SUMMARY | 2023-03-09 14:36 | External Medical Summary ---
Author Name Unknown Address Unknown Organization : Laboratory Report Ordering Provider Test Date Status SERA LESLIE 01/11/2023 10:19:18 Final Observation Date Value Abnormality Reference (Units ) Status Glucose Point of Care 01/11/2023 10:19:18 153 Above high normal 70-120 (mg/dL) Final Performing Location
--- OUTSIDE RECORDS SUMMARY | 2023-03-09 14:37 | External Medical Summary ---
Author Name Unknown Address Unknown Organization K01:LABORATORY [facility] - [address] [place] [address] Laboratory Report Ordering Provider Test Date Status SONYA FLOYD 01/11/2023 03:45:40 Final Observation Date Value Abnormality Reference (Units ) Status T4, Free 01/11/2023 03:45:40 1.2 0.9-1.7 (n g/dL) Final Performing Location LAB[facility] - [address] [place] [address]
--- OUTSIDE RECORDS SUMMARY | 2023-03-09 14:37 | External Medical Summary ---
Author Name Unknown Address Unknown Organization K01:[place] [facility] [place] [address] [place] [address] Laboratory Report Ordering Provider Test Date Status LESA JEAN 01/11/2023 03:24:21 Final Observation Date Value Abnormality Reference (Units ) Status Bacteria identified in Specimen by Culture 01/11/2023 03:24:21 No fungal growth Final Test: Culture, Fungus, Bloo d
Specimen Source: Blood, Venous
Specimen Type: Blood
Specimen Date: 01/11/2023 3:24 AM
Result Date: 02/10/2023 5:01 AM
Result Status: Final result
Resulting Lab: [facility] [place]
[address]
[place] [address]

CULTURE

No fungal growth

null Performing Location LAB[facility]ATORY [facility] [place] [address] [place] [address]
--- OUTSIDE RECORDS SUMMARY | 2023-03-09 14:37 | External Medical Summary ---
Author Name Unknown Address Unknown Organization K01:LABORATORY [facility] - [address] [place] [address] Laboratory Report Ordering Provider Test Date Status DEBBIE LEHMAN 01/10/2023 22:19:11 Final Observation Date Value Abnormality Reference (Units ) Status Magnesium 01/10/2023 22:19:11 2.0 1.5-2.6 (m g/dL) Final Performing Location LAB[facility] - [address] [place] [address]
--- OUTSIDE RECORDS SUMMARY | 2023-03-09 14:37 | External Medical Summary ---
Author Name Unknown Address Unknown Organization K01:[facility]ATORY [facility] [place] - [facility] [address] [facility] [place] [address] Laboratory Report Ordering Provider Test Date Status CHARLENE CONTRERAS 01/11/2023 04:08:35 Final CRRT Labs: check once daily if not done already
Labs to be Drawn Peripherally

Anticoagulation may affect testing. Refer to [facility] Test Catalog for a list of effects. Observation Date Value Abnormality Reference (Units ) Status aPTT panel - Platelet poor plasma 01/11/2023 04:08:35 30 21-38 (seconds) Final Performing Location LABORATORY [facility] [place] - [facility] [address] [facility] [address]
--- OUTSIDE RECORDS SUMMARY | 2023-03-09 14:37 | External Medical Summary ---
Author Name Unknown Address Unknown Organization K01:LABORATORY [facility] [place] - [address] [place] [address] Laboratory Report Ordering Provider Test Date Status SIR FLOYDKHRIS 01/11/2023 03:45:40 Final Observation Date Value Abnormality Reference (Units ) Status T3, Free 01/11/2023 03:45:40 1.7 Below low normal 2.5 -4.3 (pg/mL) Final Performing Location LABORATORY [facility] [place] - [address] [place] [address]
--- OUTSIDE RECORDS SUMMARY | 2023-03-09 14:37 | External Medical Summary ---
Author Name Unknown Address Unknown Organization K01:LABORATORY [facility] [place] - [facility] [place] [address] Laboratory Report Ordering Provider Test Date Status CHARLENE CONTRERAS 01/11/2023 04:08:35 Final CRRT Labs: check once daily if not done already
Labs to be Drawn Peripherally

Warfarin Therapy
INR: 2.0-3.0 conventional anticoagulation
INR: 2.5-3.5 high intensity anticoagulation Observation Date Value Abnormality Reference (Units ) Status PT 01/11/2023 04:08:35 14.9 11.6-15.2 (seconds) Final INR 01/11/2023 04:08:35 1.2 0.8-1.2 Final Performing Location LABORATORY [facility] [place] - [address] [place] [address]
--- OUTSIDE RECORDS SUMMARY | 2023-03-09 14:37 | External Medical Summary ---
Author Name Unknown Address Unknown Organization : Laboratory Report Ordering Provider Test Date Status SERA LESLIE 01/11/2023 03:51:55 Final Observation Date Value Abnormality Reference (Units ) Status Glucose Point of Care 01/11/2023 03:51:55 143 Above high normal 70-120 (mg/dL) Final Performing Location
--- OUTSIDE RECORDS SUMMARY | 2023-03-09 14:37 | External Medical Summary ---
Author Name Unknown Address Unknown Organization K01:[place] [facility] [place] [address] [place] [address] Laboratory Report Ordering Provider Test Date Status DEBBIE LEHMAN 01/11/2023 03:45:40 Final Observation Date Value Abnormality Reference (Units ) Status WBC, Total 01/11/2023 03:45:40 18.94 Above high normal 4.00-10.80 (K/uL) Final RBC 01/11/2023 03:45:40 2.81 3.85-5.15 (M/uL) Final Hemoglobin 01/11/2023 03:45:40 8.2 Below low normal 12.0-15.3 (g/dL) Final HCT 01/11/2023 03:45:40 26.9 Below low normal 36.0-45.2 (%) Final MCV 01/11/2023 03:45:40 95.7 81.5-97.5 (fL) Final MCH 01/11/2023 03:45:40 29.2 27.0-34.0 (pg) Final MCHC 01/11/2023 03:45:40 30.5 32.0-36.0 (g/dL) Final RDW 01/11/2023 03:45:40 17.1 11.5-15.5 (%) Final Platelets 01/11/2023 03:45:40 137 Below low normal 140-400 (K/uL) Final MPV 01/11/2023 03:45:40 11.1 6.6-11.1 (fL) Final Nucleated erythrocytes/100 leukocytes [Ratio] in Blood by Automated count 01/11/2023 03:45:40 0 <=0 (/100 WBCs) Final Performing Location LAB[facility] [place] [address] [place] [address]
--- OUTSIDE RECORDS SUMMARY | 2023-03-09 14:37 | External Medical Summary ---
Author Name Unknown Address Unknown Organization K01:LABORATORY [facility] - [address] [place] [address] Laboratory Report Ordering Provider Test Date Status DEBBIE LEHMAN 01/10/2023 22:19:11 Final Observation Date Value Abnormality Reference (Units ) Status Phosphate 01/10/2023 22:19:11 2.4 Below low normal 2.5 -4.8 (mg/dL) Final Performing Location LABORATORY [facility] - [address] [place] [address]
--- OUTSIDE RECORDS SUMMARY | 2023-03-09 14:37 | External Medical Summary ---
Author Name Unknown Address Unknown Organization K01:LABORATORY [facility] - [address] [place] [address] Laboratory Report Ordering Provider Test Date Status DEBBIE LEHMAN 01/11/2023 03:45:40 Final Observation Date Value Abnormality Reference (Units ) Status Magnesium 01/11/2023 03:45:40 1.8 1.5-2.6 (m g/dL) Final Performing Location LAB[facility]ORY [facility] - [address] [place] [address]
--- OUTSIDE RECORDS SUMMARY | 2023-03-09 14:37 | External Medical Summary ---
Author Name Unknown Address Unknown Organization K01:LABORATORY [facility] [place] - [address] [place] [address] Laboratory Report Ordering Provider Test Date Status DEBBIE LEHMAN 01/11/2023 03:45:40 Final Observation Date Value Abnormality Reference (Units ) Status BUN 01/11/2023 03:45:40 14 6-20 (mg/dL) Final Creatinine 01/11/2023 03:45:40 1.2 Above high normal 0.5-1.0 (mg/dL) Final Glomerular filtration rate/1.73 sq M.predicted [Volume Rate/Area] in Serum, Plasma or Blood by Creatinine-based formula (CKD-EPI) 01/11/2023 03:45:40 50 Below low normal >=60 (mL/min) Final eGFR is calculated based on the CKD-EPI 2020 equation SODIUM 01/11/2023 03:45:40 135 135-146 (m mol/L) Final Potassium 01/11/2023 03:45:40 3.9 3.5-5.1 (m mol/L) Final Cl 01/11/2023 03:45:40 100 98-107 (mm ol/L) Final CO2 01/11/2023 03:45:40 19 Below low normal 22- 32 (mmol/L) Final Anion gap 01/11/2023 03:45:40 16 Above high normal 7- 15 (mmol/L) Final Glucose 01/11/2023 03:45:40 151 Above high normal 70 -120 (mg/dL) Final Calcium 01/11/2023 03:45:40 9.4 8.4-10.2 ( mg/dL) Final Performing Location LABORATORY [facility] [place] - [address] [place] [address]
--- OUTSIDE RECORDS SUMMARY | 2023-03-09 14:37 | External Medical Summary ---
Author Name Unknown Address Unknown Organization : Laboratory Report Ordering Provider Test Date Status SERA LESLIE 01/10/2023 23:25:41 Final Observation Date Value Abnormality Reference (Units ) Status Glucose Point of Care 01/10/2023 23:25:41 142 Above high normal 70-120 (mg/dL) Final Performing Location
--- OUTSIDE RECORDS SUMMARY | 2023-03-09 14:37 | External Medical Summary ---
Author Name Unknown Address Unknown Organization K01:LABORATORY [facility] - [address] [place] [address] Laboratory Report Ordering Provider Test Date Status LESA JEAN 01/11/2023 03:24:21 Final Observation Date Value Abnormality Reference (Units ) Status Bacteria identified in Specimen by Culture 01/11/2023 03:24:21 No growth Final Test: Culture, Blood (Site 2 )
Specimen Source: Blood, Venous
Specimen Type: Blood
Specimen Date: 01/11/2023 3:24 AM
Result Date: 01/16/2023 5:01 AM
Result Status: Final result
Resulting Lab: LAB[facility]ATORY [facility]
[address]
[place] [address]

CULTURE

No growth

null Performing Location LABORATORY [facility] [place] - [address] [place] [address]
--- OUTSIDE RECORDS SUMMARY | 2023-03-09 14:37 | External Medical Summary ---
Author Name Unknown Address Unknown Organization K01:LABORATORY [facility] [place] - [address] [place] [address] Laboratory Report Ordering Provider Test Date Status CHARLENE CONTRERAS 01/11/2023 03:45:40 Final CRRT Labs: check once daily if not done already
Labs to be Drawn Peripherally Observation Date Value Abnormality Reference (Units ) Status Albumin 01/11/2023 03:45:40 3.6 Below low normal 3.8-5.0 (g/dL) Final AST (Aspartate aminotransferase) 01/11/2023 03:45:40 33 10-35 (U/L) Final Alk Phos 01/11/2023 03:45:40 123 35-130 (U/L) Final ALT (Alanine aminotransferase) 01/11/2023 03:45:40 13 10-35 (U/L) Final Bilirubin, Total 01/11/2023 03:45:40 0.3 <=1.2 (mg/dL) Final Bilirubin, Direct 01/11/2023 03:45:40 <0.2 0.0-0.3 (mg/dL) Final Protein 01/11/2023 03:45:40 6.0 6.0-8.3 (g/dL) Final Performing Location LABORATORY [facility] [place] - [address] [place] [address]
--- OUTSIDE RECORDS SUMMARY | 2023-03-09 14:37 | External Medical Summary ---
Author Name Unknown Address Unknown Organization K01:LABORATORY [facility] [place] [address] [place] [address] Laboratory Report Ordering Provider Test Date Status LESA JEAN 01/11/2023 03:24:21 Final Observation Date Value Abnormality Reference (Units ) Status Bacteria identified in Specimen by Culture 01/11/2023 03:24:21 No growth Final Test: Culture, Blood
Spe heroen Source: Blood, Venous
Specimen Type: Blood
Specimen Date: 01/11/2023 3:24 AM
Result Date: 01/16/2023 5:01 AM
Result Status: Final result
Resulting Lab: LABORATORY [facility] [place]
[address]
[place] [address]

CULTURE

No growth

null Performing Location LABORATORY [facility] [place] - [address] [place] [address]
--- OUTSIDE RECORDS SUMMARY | 2023-03-09 14:37 | External Medical Summary ---
Author Name Unknown Address Unknown Organization K01:[facility] [place] [address] [facility] [place] [address] Laboratory Report Ordering Provider Test Date Status DEBBIE LEHMAN 01/11/2023 04:08:00 Final Observation Date Value Abnormality Reference (Units ) Status Body temperature 01/11/2023 04:08:00 37.0 (C) Final pH of Arterial blood 01/11/2023 04:08:00 7.378 7.350-7.450 (units) Final Carbon dioxide [Partial pressure] in Arterial blood 01/11/2023 04:08:00 34.6 Below low normal 35.0-45.0 (mmHg) Final Oxygen [Partial pressure] in Arterial blood 01/11/2023 04:08:00 154.0 Above high normal 75.0-100.0 (mmHg) Final Base excess, Arterial 01/11/2023 04:08:00 -4.2 Below low normal -2.0-2.0 (mmol/L) Final Hemoglobin [Mass/volume] in Blood by Oximetry 01/11/2023 04:08:00 8.3 Below low normal 12.0-15.3 (g/dL) Final Oxyhemoglobin, Arterial (FO2HB) 01/11/2023 04:08:00 96.8 94.0-99.0 (% total Hgb) Final Carboxyhemoglobin 01/11/2023 04:08:00 1.2 <=1.5 (% total Hgb) Final Smokers: 0-9.0 % Methemoglobin 01/11/2023 04:08:00 1.1 <=1.5 (% total Hgb) Final Deoxyhemoglobin/Hemog lobin.total in Arterial blood 01/11/2023 04:08:00 0.9 0.0-5.0 (% total Hgb) Final Oxygen content in Arterial blood 01/11/2023 04:08:00 11.6 Below low normal 15.0-24.0 (%vol) Final Oxygen/Total gas setting [Volume Fraction] Ventilator 01/11/2023 04:08:00 Not Provided (%) Final O2 FLOW, ARTERIAL - [facility] 01/11/2023 04:08:00 Not Provided (L/min) Final Bicarbonate, Venous, POC (i-STAT) 01/11/2023 04:08:00 19.9 Below low normal 23.0-31.0 (mmol/L) Final Performing Location [facility] [place] [address] [facility] [address]
--- OUTSIDE RECORDS SUMMARY | 2023-03-09 14:37 | External Medical Summary ---
Author Name Unknown Address Unknown Organization K01:LABORATORY [facility] - [address] [place] [address] Laboratory Report Ordering Provider Test Date Status RAGHU OWEN 01/11/2023 03:45:40 Final Exclude Heart Failure: <300 pg/mL
Diagnose Heart Failure:
Age <50 yr: >450 pg/mL
50-75 yr: >900 pg/mL
>75 yr: >1800 pg/mL
GFR is 30-59 mL/min: >1200 pg/mL or Age- adjusted values
GFR <30 mL/min: do not use, not reliable

Prognostic threshold: 1000 pg/mL Observation Date Value Abnormality Reference (Units ) Status BNP, Pro-hormone 01/11/2023 03:45:40 >[address] Above high normal <300 (pg/mL) Final Performing Location LABORATORY [facility] - [address] [place] [address]
--- OUTSIDE RECORDS SUMMARY | 2023-03-09 14:37 | External Medical Summary ---
Author Name Unknown Address Unknown Organization K01:[place] [facility] [place] [address] [place] [address] Laboratory Report Ordering Provider Test Date Status CHARLENE CONTRERAS 01/11/2023 03:45:40 Final CRRT Labs: Check at initiati on of CRRT, One hour after CRRT and Every 6 hours
Labs to be Drawn Peripherally
Send in a separate tube. Observation Date Value Abnormality Reference (Units ) Status Calcium.ionized [Moles/volume] in Blood by Ion-selective membrane electrode (ISE) 01/11/2023 03:45:40 1.06 Below low normal 1.13-1.32 (mmol/L) Final Performing Location [facility] [facility] [place] [address] [place] [address]
--- OUTSIDE RECORDS SUMMARY | 2023-03-09 14:37 | External Medical Summary ---
Author Name Unknown Address Unknown Organization K01:LAB[facility]ORY [facility] [place] - [address] [place] [address] Laboratory Report Ordering Provider Test Date Status CHARLENE CONTRERAS 01/11/2023 03:45:40 Final Post Filter Ionized Calcium Observation Date Value Abnormality Reference (Units ) Status Calcium.ionized [Moles/volume] in Blood drawn from CRRT circuit 01/11/2023 03:45:40 0.52 Above high normal 0.25-0.50 (mmol/L) Final Performing Location LAB[facility] [place] - [address] [place] [address]
--- OUTSIDE RECORDS SUMMARY | 2023-03-09 14:37 | External Medical Summary ---
Author Name Unknown Address Unknown Organization K01:[facility]ATORY [facility] - [address] [place] [address] Laboratory Report Ordering Provider Test Date Status DEBBIE LEHMAN 01/11/2023 03:45:40 Final Observation Date Value Abnormality Reference (Units ) Status Phosphate 01/11/2023 03:45:40 2.6 2.5-4.8 (m g/dL) Final Performing Location LAB[facility]ATORY [facility] - [address] [place] [address]
--- OUTSIDE RECORDS SUMMARY | 2023-03-09 14:38 | External Medical Summary ---
Author Name Unknown Address Unknown Organization K01:[facility] [place] [facility] [address] [facility] [address] Laboratory Report Ordering Provider Test Date Status DEBBIE LEHMAN 01/10/2023 16:20:29 Final Observation Date Value Abnormality Reference (Units ) Status BUN 01/10/2023 16:20:29 16 6-20 (mg/dL) Final Creatinine 01/10/2023 16:20:29 1.6 Above high normal 0.5-1.0 (mg/dL) Final Glomerular filtration rate/1.73 sq M.predicted [Volume Rate/Area] in Serum, Plasma or Blood by Creatinine-based formula (CKD-EPI) 01/10/2023 16:20:29 37 Below low normal >=60 (mL/min) Final eGFR is calculated based on the CKD-EPI 2020 equation SODIUM 01/10/2023 16:20:29 133 Below low normal 135 -146 (mmol/L) Final Potassium 01/10/2023 16:20:29 3.5 3.5-5.1 (m mol/L) Final Cl 01/10/2023 16:20:29 100 98-107 (mm ol/L) Final CO2 01/10/2023 16:20:29 17 Below low normal 22- 32 (mmol/L) Final Anion gap 01/10/2023 16:20:29 16 Above high normal 7- 15 (mmol/L) Final Glucose 01/10/2023 16:20:29 162 Above high normal 70 -120 (mg/dL) Final Calcium 01/10/2023 16:20:29 8.9 8.4-10.2 ( mg/dL) Final Performing Location [facility] [place] [address] [place] [address]
--- OUTSIDE RECORDS SUMMARY | 2023-03-09 14:38 | External Medical Summary ---
Author Name Unknown Address Unknown Organization K01:LABORATORY [facility] [place] - [address] [place] [address] Laboratory Report Ordering Provider Test Date Status MARKCONSTANTINELAURIEBetziada 01/10/2023 22:19:11 Final Observation Date Value Abnormality Reference (Units ) Status Lactic Acid 01/10/2023 22:19:11 1.1 0.4-2.0 (mmol/L) Final Performing Location LAB[facility] - [address] [place] [address]
--- OUTSIDE RECORDS SUMMARY | 2023-03-09 14:38 | External Medical Summary ---
Author Name Unknown Address Unknown Organization K01:[facility] [place] - [address] [place] [address] Laboratory Report Ordering Provider Test Date Status DEBBIE LEHMAN 01/10/2023 22:19:11 Final Observation Date Value Abnormality Reference (Units ) Status BUN 01/10/2023 22:19:11 14 6-20 (mg/dL) Final Creatinine 01/10/2023 22:19:11 1.4 Above high normal 0.5-1.0 (mg/dL) Final Glomerular filtration rate/1.73 sq M.predicted [Volume Rate/Area] in Serum, Plasma or Blood by Creatinine-based formula (CKD-EPI) 01/10/2023 22:19:11 44 Below low normal >=60 (mL/min) Final eGFR is calculated based on the CKD-EPI 2020 equation SODIUM 01/10/2023 22:19:11 133 Below low normal 135 -146 (mmol/L) Final Potassium 01/10/2023 22:19:11 3.6 3.5-5.1 (m mol/L) Final Cl 01/10/2023 22:19:11 100 98-107 (mm ol/L) Final CO2 01/10/2023 22:19:11 18 Below low normal 22- 32 (mmol/L) Final Anion gap 01/10/2023 22:19:11 15 7-15 (mmol /L) Final Glucose 01/10/2023 22:19:11 158 Above high normal 70 -120 (mg/dL) Final Calcium 01/10/2023 22:19:11 9.0 8.4-10.2 ( mg/dL) Final Performing Location [facility] [place] - [address] [place] [address]
--- OUTSIDE RECORDS SUMMARY | 2023-03-09 14:38 | External Medical Summary ---
Author Name Unknown Address Unknown Organization K01:[facility]ATORY [facility] [place] - [address] [place] [address] Laboratory Report Ordering Provider Test Date Status RAGHU OWEN 01/10/2023 11:52:16 Final Observation Date Value Abnormality Reference (Units ) Status Lactic Acid 01/10/2023 11:52:16 0.9 0.4-2.0 (mmol/L) Final Performing Location LAB[facility]ORY [facility] - [address] [place] [address]
--- OUTSIDE RECORDS SUMMARY | 2023-03-09 14:38 | External Medical Summary ---
Author Name Unknown Address Unknown Organization : Laboratory Report Ordering Provider Test Date Status SERA LESLIE 01/10/2023 19:00:09 Final Observation Date Value Abnormality Reference (Units ) Status Glucose Point of Care 01/10/2023 19:00:09 174 Above high normal 70-120 (mg/dL) Final Performing Location
--- OUTSIDE RECORDS SUMMARY | 2023-03-09 14:38 | External Medical Summary ---
Author Name Unknown Address Unknown Organization K01:[facility] [place] [address] [place] [address] Laboratory Report Ordering Provider Test Date Status CHARLENE CONTRERAS 01/10/2023 10:10:05 Final CRRT Labs: Check at initiati on of CRRT, One hour after CRRT and Every 6 hours
Labs to be Drawn Peripherally
Send in a separate tube. Observation Date Value Abnormality Reference (Units ) Status Calcium.ionized [Moles/volume] in Blood by Ion-selective membrane electrode (ISE) 01/10/2023 10:10:05 0.94 Below low normal 1.13-1.32 (mmol/L) Final Performing Location [facility] [place] [address] [place] [address]
--- OUTSIDE RECORDS SUMMARY | 2023-03-09 14:38 | External Medical Summary ---
Author Name Unknown Address Unknown Organization : Laboratory Report Ordering Provider Test Date Status SERA LESLIE 01/10/2023 11:51:31 Final Observation Date Value Abnormality Reference (Units ) Status Glucose Point of Care 01/10/2023 11:51:31 178 Above high normal 70-120 (mg/dL) Final Performing Location
--- OUTSIDE RECORDS SUMMARY | 2023-03-09 14:38 | External Medical Summary ---
Author Name Unknown Address Unknown Organization : Laboratory Report Ordering Provider Test Date Status SERA LESLIE 01/10/2023 14:16:47 Final Observation Date Value Abnormality Reference (Units ) Status Glucose Point of Care 01/10/2023 14:16:47 154 Above high normal 70-120 (mg/dL) Final Performing Location
--- OUTSIDE RECORDS SUMMARY | 2023-03-09 14:38 | External Medical Summary ---
Author Name Unknown Address Unknown Organization K01:[facility] [place] [address] [place] [address] Laboratory Report Ordering Provider Test Date Status SONYA FLOYD 01/10/2023 10:10:05 Final Observation Date Value Abnormality Reference (Units ) Status T3, Free 01/10/2023 10:10:05 1.2 Below low normal 2.5 -4.3 (pg/mL) Final Performing Location [facility] [place] [address] [place] [address]
--- OUTSIDE RECORDS SUMMARY | 2023-03-09 14:38 | External Medical Summary ---
Author Name Unknown Address Unknown Organization K01:[facility] [place] [address] [place] [address] Laboratory Report Ordering Provider Test Date Status LAURIE FLOYDBetzaida 01/10/2023 16:20:29 Final Observation Date Value Abnormality Reference (Units ) Status Lactic Acid 01/10/2023 16:20:29 0.7 0.4-2.0 (mmol/L) Final Performing Location LAB[facility] - [address] [place] [address]
--- OUTSIDE RECORDS SUMMARY | 2023-03-09 14:38 | External Medical Summary ---
Author Name Unknown Address Unknown Organization K01:LABORATORY [facility] - [address] [place] [address] Laboratory Report Ordering Provider Test Date Status DEBBIE LEHMAN 01/10/2023 16:20:29 Final Observation Date Value Abnormality Reference (Units ) Status Magnesium 01/10/2023 16:20:29 1.7 1.5-2.6 (m g/dL) Final Performing Location LAB[facility]ATORY [facility] - [address] [place] [address]
--- OUTSIDE RECORDS SUMMARY | 2023-03-09 14:38 | External Medical Summary ---
Author Name Unknown Address Unknown Organization : Laboratory Report Ordering Provider Test Date Status SERA LESLIE 01/10/2023 11:00:59 Final Observation Date Value Abnormality Reference (Units ) Status Glucose Point of Care 01/10/2023 11:00:59 181 Above high normal 70-120 (mg/dL) Final Performing Location
--- OUTSIDE RECORDS SUMMARY | 2023-03-09 14:38 | External Medical Summary ---
Author Name Unknown Address Unknown Organization K01:LABORATORY [facility] - [address] [place] [address] Laboratory Report Ordering Provider Test Date Status DEBBIE LEHMAN 01/10/2023 16:20:29 Final Observation Date Value Abnormality Reference (Units ) Status Phosphate 01/10/2023 16:20:29 2.7 2.5-4.8 (m g/dL) Final Performing Location LABORATORY [facility] - [address] [place] [address]
--- OUTSIDE RECORDS SUMMARY | 2023-03-09 14:38 | External Medical Summary ---
Author Name Unknown Address Unknown Organization : Laboratory Report Ordering Provider Test Date Status SERA LESLIE 01/10/2023 13:23:03 Final Observation Date Value Abnormality Reference (Units ) Status Glucose Point of Care 01/10/2023 13:23:03 155 Above high normal 70-120 (mg/dL) Final Performing Location
--- OUTSIDE RECORDS SUMMARY | 2023-03-09 14:38 | External Medical Summary ---
Author Name Unknown Address Unknown Organization : Laboratory Report Ordering Provider Test Date Status SERA LESLIE 01/10/2023 10:08:32 Final Observation Date Value Abnormality Reference (Units ) Status Glucose Point of Care 01/10/2023 10:08:32 165 Above high normal 70-120 (mg/dL) Final Performing Location
--- OUTSIDE RECORDS SUMMARY | 2023-03-09 14:38 | External Medical Summary ---
Author Name Unknown Address Unknown Organization K01:[facility]ATORY [facility] [place] [address] [facility] [address] Laboratory Report Ordering Provider Test Date Status DEBBIE LEHMAN 01/10/2023 10:12:01 Final Observation Date Value Abnormality Reference (Units ) Status Body temperature 01/10/2023 10:12:01 37.0 (C) Final pH of Arterial blood 01/10/2023 10:12: 7.336 Below low normal 7.350-7.450 (units) Final Carbon dioxide [Partial pressure] in Arterial blood 01/10/2023 10:12:01 32.6 Below low normal 35.0-45.0 (mmHg) Final Oxygen [Partial pressure] in Arterial blood 01/10/2023 10:12:01 114.0 Above high normal 75.0-100.0 (mmHg) Final Base excess, Arterial 01/10/2023 10:12:01 -7.6 Below low normal -2.0-2.0 (mmol/L) Final Hemoglobin [Mass/volume] in Blood by Oximetry 01/10/2023 10:12:01 8.9 Below low normal 12.0-15.3 (g/dL) Final Oxyhemoglobin, Arterial (FO2HB) 01/10/2023 10:12: 96.7 94.0-99.0 (% total Hgb) Final Carboxyhemoglobin 01/10/2023 10:12:01 1.3 <=1.5 (% total Hgb) Final Smokers: 0-9.0 % Methemoglobin 01/10/2023 10:12:01 0.6 <=1.5 (% total Hgb) Final Deoxyhemoglobin/Hemog lobin.total in Arterial blood 01/10/2023 10:12: 1.4 0.0-5.0 (% total Hgb) Final Oxygen content in Arterial blood 01/10/2023 10:12:01 12.3 Below low normal 15.0-24.0 (%vol) Final Oxygen/Total gas setting [Volume Fraction] Ventilator 01/10/2023 10:12:01 40 vent (%) Final O2 FLOW, [facility]ERIAL - [facility] 01/10/2023 10:12:01 Not Provided (L/min) Final Bicarbonate, Venous, POC (i-STAT) 01/10/2023 10:12:01 16.9 Below low normal 23.0-31.0 (mmol/L) Final Performing Location [facility]ORY [facility] [place] - [address] [facility] [address]
--- OUTSIDE RECORDS SUMMARY | 2023-03-09 14:38 | External Medical Summary ---
Author Name Unknown Address Unknown Organization K01:LABORATORY [facility] [place] - [address] [place] [address] Laboratory Report Ordering Provider Test Date Status CHARLENE CONTRERAS 01/10/2023 10:10:05 Final Post Filter Ionized Calcium Observation Date Value Abnormality Reference (Units ) Status Calcium.ionized [Moles/volume] in Blood drawn from CRRT circuit 01/10/2023 10:10:05 0.50 0.25-0.50 (mmol/L) Final Performing Location LAB[facility]ORY [facility] [place] - [address] [place] [address]
--- OUTSIDE RECORDS SUMMARY | 2023-03-09 14:38 | External Medical Summary ---
Author Name Unknown Address Unknown Organization K01:[facility] [place] [address] [place] [address] Laboratory Report Ordering Provider Test Date Status CHARLENE CONTRERAS 01/10/2023 22:19:11 Final Post Filter Ionized Calcium Observation Date Value Abnormality Reference (Units ) Status Calcium.ionized [Moles/volume] in Blood drawn from CRRT circuit 01/10/2023 22:19:11 0.49 0.25-0.50 (mmol/L) Final Performing Location [facility] [place] [address] [place] [address]
--- OUTSIDE RECORDS SUMMARY | 2023-03-09 14:38 | External Medical Summary ---
Author Name Unknown Address Unknown Organization K01:[facility] [place] [facility] [place] [address] [facility] [place] [address] Laboratory Report Ordering Provider Test Date Status DEBBIE LEHMAN 01/10/2023 04:40:26 Final Observation Date Value Abnormality Reference (Units ) Status Body temperature 01/10/2023 04:40:26 37.0 (C) Final pH of Arterial blood 01/10/2023 04:40:26 7.313 Below low normal 7.350-7.450 (units) Final Carbon dioxide [Partial pressure] in Arterial blood 01/10/2023 04:40:26 34.4 Below low normal 35.0-45.0 (mmHg) Final Oxygen [Partial pressure] in Arterial blood 01/10/2023 04:40:26 125.0 Above high normal 75.0-100.0 (mmHg) Final Base excess, Arterial 01/10/2023 04:40:26 -8.1 Below low normal -2.0-2.0 (mmol/L) Final Hemoglobin [Mass/volume] in Blood by Oximetry 01/10/2023 04:40:26 8.3 Below low normal 12.0-15.3 (g/dL) Final Oxyhemoglobin, Arterial (FO2HB) 01/10/2023 04:40:26 96.1 94.0-99.0 (% total Hgb) Final Carboxyhemoglobin 01/10/2023 04:40:26 1.3 <=1.5 (% total Hgb) Final Smokers: 0-9.0 % Methemoglobin 01/10/2023 04:40:26 1.0 <=1.5 (% total Hgb) Final Deoxyhemoglobin/Hemog lobin.total in Arterial blood 01/10/2023 04:40:26 1.6 0.0-5.0 (% total Hgb) Final Oxygen content in Arterial blood 01/10/2023 04:40:26 11.5 Below low normal 15.0-24.0 (%vol) Final Oxygen/Total gas setting [Volume Fraction] Ventilator 01/10/2023 04:40:26 40 (%) Final O2 FLOW, [facility] - [facility] 01/10/2023 04:40:26 Not Provided (L/min) Final Bicarbonate, Venous, POC (i-STAT) 01/10/2023 04:40:26 16.9 Below low normal 23.0-31.0 (mmol/L) Final Performing Location [facility] [place] [facility] [place] Formerly named [facility] [address] [place], [place] [address]
--- OUTSIDE RECORDS SUMMARY | 2023-03-09 14:38 | External Medical Summary ---
Author Name Unknown Address Unknown Organization K01:LAB[facility]ATORY [facility] [place] - [address] [place] [address] Laboratory Report Ordering Provider Test Date Status CHARLENE CONTRERAS 01/10/2023 16:20:29 Final Post Filter Ionized Calcium Observation Date Value Abnormality Reference (Units ) Status Calcium.ionized [Moles/volume] in Blood drawn from CRRT circuit 01/10/2023 16:20:29 0.53 Above high normal 0.25-0.50 (mmol/L) Final Performing Location LAB[facility]ATORY [facility] [place] - [address] [place] [address]
--- OUTSIDE RECORDS SUMMARY | 2023-03-09 14:38 | External Medical Summary ---
Author Name Unknown Address Unknown Organization K01:LABORATORY [facility] [place] - [address] [place] [address] Laboratory Report Ordering Provider Test Date Status LAURIE FLOYDBetzaida 01/10/2023 10:10:05 Final Observation Date Value Abnormality Reference (Units ) Status T4, Free 01/10/2023 10:10:05 0.8 Below low normal 0.9 -1.7 (ng/dL) Final Performing Location LAB[facility]ORY [facility] - [address] [place] [address]
--- OUTSIDE RECORDS SUMMARY | 2023-03-09 14:38 | External Medical Summary ---
Author Name Unknown Address Unknown Organization : Laboratory Report Ordering Provider Test Date Status SERA LESLIE 01/10/2023 17:10:59 Final Observation Date Value Abnormality Reference (Units ) Status Glucose Point of Care 01/10/2023 17:10:59 168 Above high normal 70-120 (mg/dL) Final Performing Location
--- OUTSIDE RECORDS SUMMARY | 2023-03-09 14:38 | External Medical Summary ---
Author Name Unknown Address Unknown Organization K01:[facility] [place] [address] [place] [address] Laboratory Report Ordering Provider Test Date Status LEIACONSTANTINESIRKHRIS 01/10/2023 10:10:05 Final Observation Date Value Abnormality Reference (Units ) Status TSH 01/10/2023 10:10:05 5.81 Above high normal 0. 27-4.20 (uIU/mL) Final Performing Location LABORATORY [facility] - [address] [place] [address]
--- OUTSIDE RECORDS SUMMARY | 2023-03-09 14:38 | External Medical Summary ---
Author Name Unknown Address Unknown Organization : Laboratory Report Ordering Provider Test Date Status SERA LESLIE 01/10/2023 18:21:37 Final Observation Date Value Abnormality Reference (Units ) Status Glucose Point of Care 01/10/2023 18:21:37 174 Above high normal 70-120 (mg/dL) Final Performing Location
--- OUTSIDE RECORDS SUMMARY | 2023-03-09 14:38 | External Medical Summary ---
Author Name Unknown Address Unknown Organization K01:[place] [facility] [place] [address] [place] [address] Laboratory Report Ordering Provider Test Date Status RAGHU OWEN 01/10/2023 07:00:18 Final Observation Date Value Abnormality Reference (Units ) Status Oxygen saturation in Venous blood 01/10/2023 07:00:18 48.1 40.0-85.0 (%) Final Performing Location LAB[facility] - [address] [place] [address]
--- OUTSIDE RECORDS SUMMARY | 2023-03-09 14:38 | External Medical Summary ---
Author Name Unknown Address Unknown Organization K01:LABORATORY [facility] [place] - [address] [place] [address] Laboratory Report Ordering Provider Test Date Status CHARLENE CONTRERAS 01/10/2023 22:19:11 Final CRRT Labs: Check at initiati on of CRRT, One hour after CRRT and Every 6 hours
Labs to be Drawn Peripherally
Send in a separate tube. Observation Date Value Abnormality Reference (Units ) Status Calcium.ionized [Moles/volume] in Blood by Ion-selective membrane electrode (ISE) 01/10/2023 22:19:11 1.01 Below low normal 1.13-1.32 (mmol/L) Final Performing Location LABORATORY [facility] [place] - [address] [place] [address]
--- OUTSIDE RECORDS SUMMARY | 2023-03-09 14:38 | External Medical Summary ---
Author Name Unknown Address Unknown Organization : Laboratory Report Ordering Provider Test Date Status SERA LESLIE 01/10/2023 20:08:47 Final Observation Date Value Abnormality Reference (Units ) Status Glucose Point of Care 01/10/2023 20:08:47 145 Above high normal 70-120 (mg/dL) Final Performing Location
--- OUTSIDE RECORDS SUMMARY | 2023-03-09 14:38 | External Medical Summary ---
Author Name Unknown Address Unknown Organization : Laboratory Report Ordering Provider Test Date Status SERA LESLIE 01/10/2023 05:49:47 Final Observation Date Value Abnormality Reference (Units) Status Blood draw [PhenX] 01/10/2023 05:49:47 Arterial Draw Final pH, POC (i-STAT) 01/10/2023 05:49:47 7.285 Below low normal 7.350-7.450 Final PCO2 POC (i-STAT) 01/10/2023 05:49:47 33.0 Below low normal 35.0-45.0 (mm Hg) Final PO2 POC (i-STAT) 01/10/2023 05:49:47 103 Above high normal 75-100 (mm Hg) Final Base excess standard in Arterial blood by calculation 01/10/2023 05:49:47 -10 Below low normal -2-2 (mmol/L) Final Bicarbonate, Venous, POC (i-STAT) 01/10/2023 05:49:47 15.7 Below low normal 23.0-31.0 (mmol/L) Final O2 Sat, calculated POC (i-STAT) 01/10/2023 05:49:47 97.0 94.0-98.0 (%) Final Glucose, whole blood 01/10/2023 05:49:47 157 Above high normal 70-120 (mg/dL) Final Potassium, Whole Blood 01/10/2023 05:49:47 4.4 3.5-5.1 (mmol/L) Final Sodium, Whole Blood 01/10/2023 05:49:47 131 Below low normal 135-146 (mmol/L) Final Calcium, Ionized, Whole Blood 01/10/2023 05:49:47 0.96 Below low normal 1.13-1.32 (mmol/L) Final Hemoglobin POC (i-STAT) 01/10/2023 05:49:47 9.5 Below low normal 12.0-15.3 (g/dL) Final HCT 01/10/2023 05:49:47 28 Below low normal 36-45 (%) Final Performing Location
--- OUTSIDE RECORDS SUMMARY | 2023-03-09 14:38 | External Medical Summary ---
Author Name Unknown Address Unknown Organization K01:[facility] [address] [place] [address] Laboratory Report Ordering Provider Test Date Status DEBBIE LEHMAN 01/10/2023 10:10:05 Final Observation Date Value Abnormality Reference (Units ) Status Phosphate 01/10/2023 10:10:05 2.9 2.5-4.8 (m g/dL) Final Performing Location [facility] [place] [address] [place] [address]
--- OUTSIDE RECORDS SUMMARY | 2023-03-09 14:38 | External Medical Summary ---
Author Name Unknown Address Unknown Organization K01:[facility] [place] [address] [facility] [place] [address] Laboratory Report Ordering Provider Test Date Status DEBBIE LEHMAN 01/10/2023 18:19:06 Final Observation Date Value Abnormality Reference (Units ) Status Body temperature 01/10/2023 18:19:06 37.0 (C) Final pH of Arterial blood 01/10/2023 18:19:06 7.398 7.350-7.450 (units) Final Carbon dioxide [Partial pressure] in Arterial blood 01/10/2023 18:19:06 30.3 Below low normal 35.0-45.0 (mmHg) Final Oxygen [Partial pressure] in Arterial blood 01/10/2023 18:19:06 117.0 Above high normal 75.0-100.0 (mmHg) Final Base excess, Arterial 01/10/2023 18:19:06 -5.3 Below low normal -2.0-2.0 (mmol/L) Final Hemoglobin [Mass/volume] in Blood by Oximetry 01/10/2023 18:19:06 8.3 Below low normal 12.0-15.3 (g/dL) Final Oxyhemoglobin, Arterial (FO2HB) 01/10/2023 18:19:06 97.2 94.0-99.0 (% total Hgb) Final Carboxyhemoglobin 01/10/2023 18:19:06 1.3 <=1.5 (% total Hgb) Final Smokers: 0-9.0 % Methemoglobin 01/10/2023 18:19:06 0.6 <=1.5 (% total Hgb) Final Deoxyhemoglobin/Hemog lobin.total in Arterial blood 01/10/2023 18:19:06 0.9 0.0-5.0 (% total Hgb) Final Oxygen content in Arterial blood 01/10/2023 18:19:06 11.5 Below low normal 15.0-24.0 (%vol) Final Oxygen/Total gas setting [Volume Fraction] Ventilator 01/10/2023 18:19:06 Not Provided (%) Final O2 FLOW, ARTERIAL - [facility] 01/10/2023 18:19:06 Not Provided (L/min) Final Bicarbonate, Venous, POC (i-STAT) 01/10/2023 18:19:06 18.3 Below low normal 23.0-31.0 (mmol/L) Final Performing Location [facility] [place] [address] [facility] [address]
--- OUTSIDE RECORDS SUMMARY | 2023-03-09 14:38 | External Medical Summary ---
Author Name Unknown Address Unknown Organization K01:[facility] [address] [place] [address] Laboratory Report Ordering Provider Test Date Status DEBBIE LEHMAN 01/10/2023 10:10:05 Final Observation Date Value Abnormality Reference (Units ) Status Magnesium 01/10/2023 10:10:05 1.8 1.5-2.6 (m g/dL) Final Performing Location [facility] [place] [address] [place] [address]
--- OUTSIDE RECORDS SUMMARY | 2023-03-09 14:38 | External Medical Summary ---
Author Name Unknown Address Unknown Organization : Laboratory Report Ordering Provider Test Date Status SERA LESLIE 01/10/2023 15:27:53 Final Observation Date Value Abnormality Reference (Units ) Status Glucose Point of Care 01/10/2023 15:27:53 152 Above high normal 70-120 (mg/dL) Final Performing Location
--- OUTSIDE RECORDS SUMMARY | 2023-03-09 14:39 | External Medical Summary ---
Author Name Unknown Address Unknown Organization K01:[facility] - [address] [place] [address] Laboratory Report Ordering Provider Test Date Status DEBBIE LEHMAN 01/10/2023 04:34:45 Final Observation Date Value Abnormality Reference (Units ) Status Phosphate 01/10/2023 04:34:45 3.2 2.5-4.8 (m g/dL) Final Performing Location [facility] - [address] [place] [address]
--- OUTSIDE RECORDS SUMMARY | 2023-03-09 14:39 | External Medical Summary ---
Author Name Unknown Address Unknown Organization : Laboratory Report Ordering Provider Test Date Status SERA LESLIE 01/09/2023 23:30:10 Final Observation Date Value Abnormality Reference (Units ) Status Glucose Point of Care 01/09/2023 23:30:10 115 70-120 (mg/dL) Final Performing Location
--- OUTSIDE RECORDS SUMMARY | 2023-03-09 14:39 | External Medical Summary ---
Author Name Unknown Address Unknown Organization K01:[facility] - [address] [place] [address] Laboratory Report Ordering Provider Test Date Status DEBBIE LEHMAN 01/09/2023 21:59:08 Final Observation Date Value Abnormality Reference (Units ) Status Phosphate 01/09/2023 21:59:08 3.7 2.5-4.8 (m g/dL) Final Performing Location [facility] - [address] [place] [address]
--- OUTSIDE RECORDS SUMMARY | 2023-03-09 14:39 | External Medical Summary ---
Author Name Unknown Address Unknown Organization K01:[facility] [place] [address] [facility] [address] Laboratory Report Ordering Provider Test Date Status DEBBIE LEHMAN 01/10/2023 04:34:45 Final Observation Date Value Abnormality Reference (Units ) Status BUN 01/10/2023 04:34:45 20 6-20 (mg/dL) Final Creatinine 01/10/2023 04:34:45 2.3 Above high normal 0.5-1.0 (mg/dL) Final Glomerular filtration rate/1.73 sq M.predicted [Volume Rate/Area] in Serum, Plasma or Blood by Creatinine-based formula (CKD-EPI) 01/10/2023 04:34:45 24 Below low normal >=60 (mL/min) Final eGFR is calculated based on the CKD-EPI 2020 equation SODIUM 01/10/2023 04:34:45 132 Below low normal 135 -146 (mmol/L) Final Potassium 01/10/2023 04:34:45 4.5 3.5-5.1 (m mol/L) Final Cl 01/10/2023 04:34:45 101 98-107 (mm ol/L) Final CO2 01/10/2023 04:34:45 16 Below low normal 22- 32 (mmol/L) Final Anion gap 01/10/2023 04:34:45 15 7-15 (mmol /L) Final Glucose 01/10/2023 04:34:45 142 Above high normal 70 -120 (mg/dL) Final Calcium 01/10/2023 04:34:45 8.0 Below low normal 8.4 -10.2 (mg/dL) Final Performing Location [facility] [place] [address] [place] [address]
--- OUTSIDE RECORDS SUMMARY | 2023-03-09 14:39 | External Medical Summary ---
Author Name Unknown Address Unknown Organization K01:[facility] - [address] [place] [address] Laboratory Report Ordering Provider Test Date Status DEBBIE LEHMAN 01/10/2023 04:34:45 Final Observation Date Value Abnormality Reference (Units ) Status Magnesium 01/10/2023 04:34:45 2.1 1.5-2.6 (m g/dL) Final Performing Location [facility] - [address] [place] [address]
--- OUTSIDE RECORDS SUMMARY | 2023-03-09 14:39 | External Medical Summary ---
Author Name Unknown Address Unknown Organization K01:LAB[facility]ATORY [place] [address] [place] [address] Laboratory Report Ordering Provider Test Date Status CHARLENE CONTRERAS 01/10/2023 03:24:06 Final CRRT Labs: Check at initiati on of CRRT, One hour after CRRT and Every 6 hours
Labs to be Drawn Peripherally Observation Date Value Abnormality Reference (Units ) Status BUN 01/10/2023 03:24:06 21 Above high normal 6-20 (mg/dL) Final Creatinine 01/10/2023 03:24:06 2.6 Above high normal 0.5-1.0 (mg/dL) Final Glomerular filtration rate/1.73 sq M.predicted [Volume Rate/Area] in Serum, Plasma or Blood by Creatinine-based formula (CKD-EPI) 01/10/2023 03:24:06 21 Below low normal >=60 (mL/min) Final eGFR is calculated based on the CKD-EPI 2020 equation SODIUM 01/10/2023 03:24:06 132 Below low normal 135 -146 (mmol/L) Final Potassium 01/10/2023 03:24:06 3.9 3.5-5.1 (m mol/L) Final Cl 01/10/2023 03:24:06 101 98-107 (mm ol/L) Final CO2 01/10/2023 03:24:06 18 Below low normal 22- 32 (mmol/L) Final Anion gap 01/10/2023 03:24:06 13 7-15 (mmol /L) Final Glucose 01/10/2023 03:24:06 123 Above high normal 70 -120 (mg/dL) Final Calcium 01/10/2023 03:24:06 8.0 Below low normal 8.4 -10.2 (mg/dL) Final Performing Location LAB[facility]ATORY [place] [address] [place] [address]
--- OUTSIDE RECORDS SUMMARY | 2023-03-09 14:39 | External Medical Summary ---
Author Name Unknown Address Unknown Organization K01:[facility] [place] [address] [place] [address] Laboratory Report Ordering Provider Test Date Status CHARLENE CONTRERAS 01/10/2023 04:34:45 Final Post Filter Ionized Calcium Observation Date Value Abnormality Reference (Units ) Status Calcium.ionized [Moles/volume] in Blood drawn from CRRT circuit 01/10/2023 04:34:45 0.50 0.25-0.50 (mmol/L) Final Performing Location [facility]ORY [facility] [place] - [address] [place] [address]
--- OUTSIDE RECORDS SUMMARY | 2023-03-09 14:39 | External Medical Summary ---
Author Name Unknown Address Unknown Organization K01:[facility] [place] [address] [place] [address] Laboratory Report Ordering Provider Test Date Status DEBBIE LEHMAN 01/10/2023 04:34:45 Final Observation Date Value Abnormality Reference (Units ) Status WBC, Total 01/10/2023 04:34:45 16.19 Above high normal 4.00-10.80 (K/uL) Final RBC 01/10/2023 04:34:45 2.70 3.85-5.15 (M/uL) Final Hemoglobin 01/10/2023 04:34:45 8.2 Below low normal 12.0-15.3 (g/dL) Final HCT 01/10/2023 04:34:45 25.7 Below low normal 36.0-45.2 (%) Final MCV 01/10/2023 04:34:45 95.2 81.5-97.5 (fL) Final MCH 01/10/2023 04:34:45 30.4 27.0-34.0 (pg) Final MCHC 01/10/2023 04:34:45 31.9 32.0-36.0 (g/dL) Final RDW 01/10/2023 04:34:45 17.1 11.5-15.5 (%) Final Platelets 01/10/2023 04:34:45 106 Below low normal 140-400 (K/uL) Final MPV 01/10/2023 04:34:45 11.0 6.6-11.1 (fL) Final Nucleated erythrocytes/100 leukocytes [Ratio] in Blood by Automated count 01/10/2023 04:34:45 0 <=0 (/100 WBCs) Final Performing Location LAB[facility]ATORY [facility] - [address] [place] [address]
--- OUTSIDE RECORDS SUMMARY | 2023-03-09 14:39 | External Medical Summary ---
Author Name Unknown Address Unknown Organization K01:[facility]ATORY [facility] [place] - [address] [facility] [address] Laboratory Report Ordering Provider Test Date Status CHARLENE CONTRERAS 01/10/2023 03:06:00 Final CRRT Labs: check once daily if not done already
Labs to be Drawn Peripherally
Send in a separate tube.
If the patient is to receive regional citrate anticoagulation, test POST FILTER and Peripheral Ionized Observation Date Value Abnormality Reference (Units ) Status Calcium.ionized [Moles/volume] in Blood by Ion-selective membrane electrode (ISE) 01/10/2023 03:06:00 1.12 Below low normal 1.13-1.32 (mmol/L) Final Performing Location LAB[facility]ATORY [facility] [place] - [address] [facility] [address]
--- OUTSIDE RECORDS SUMMARY | 2023-03-09 14:39 | External Medical Summary ---
Author Name Unknown Address Unknown Organization K01:[facility] [place] [address] [facility] [address] Laboratory Report Ordering Provider Test Date Status DEBBIE LEHMAN 01/09/2023 17:35:22 Final Observation Date Value Abnormality Reference (Units ) Status BUN 01/09/2023 17:35:22 17 6-20 (mg/dL) Final Creatinine 01/09/2023 17:35:22 1.9 Above high normal 0.5-1.0 (mg/dL) Final Glomerular filtration rate/1.73 sq M.predicted [Volume Rate/Area] in Serum, Plasma or Blood by Creatinine-based formula (CKD-EPI) 01/09/2023 17:35:22 30 Below low normal >=60 (mL/min) Final eGFR is calculated based on the CKD-EPI 2020 equation SODIUM 01/09/2023 17:35:22 132 Below low normal 135 -146 (mmol/L) Final Potassium 01/09/2023 17:35:22 3.0 Below low normal 3.5 -5.1 (mmol/L) Final Cl 01/09/2023 17:35:22 100 98-107 (mm ol/L) Final CO2 01/09/2023 17:35:22 16 Below low normal 22- 32 (mmol/L) Final Anion gap 01/09/2023 17:35:22 16 Above high normal 7- 15 (mmol/L) Final Glucose 01/09/2023 17:35:22 125 Above high normal 70 -120 (mg/dL) Final Calcium 01/09/2023 17:35:22 8.6 8.4-10.2 ( mg/dL) Final Performing Location [facility]ORY [facility] [place] [address] [place] [address]
--- OUTSIDE RECORDS SUMMARY | 2023-03-09 14:39 | External Medical Summary ---
Author Name Unknown Address Unknown Organization K01:[facility] [place] [address] [place] [address] Laboratory Report Ordering Provider Test Date Status CHARLENE CONTRERAS 01/10/2023 03:24:06 Final CRRT Labs: Check at initiati on of CRRT, One hour after CRRT and Every 6 hours
Labs to be Drawn Peripherally Observation Date Value Abnormality Reference (Units ) Status Phosphate 01/10/2023 03:24:06 3.2 2.5-4.8 (m g/dL) Final Performing Location [facility] [place] [address] [place] [address]
--- OUTSIDE RECORDS SUMMARY | 2023-03-09 14:39 | External Medical Summary ---
Author Name Unknown Address Unknown Organization K01:[facility] [place] [address] [place] [address] Laboratory Report Ordering Provider Test Date Status CHARLENE CONTRERAS 01/10/2023 03:24:06 Final CRRT Labs: Check at initiati on of CRRT, One hour after CRRT and Every 6 hours
Labs to be Drawn Peripherally Observation Date Value Abnormality Reference (Units ) Status Magnesium 01/10/2023 03:24:06 2.2 1.5-2.6 (m g/dL) Final Performing Location [facility]ORY [facility] [place] [address] [place] [address]
--- OUTSIDE RECORDS SUMMARY | 2023-03-09 14:39 | External Medical Summary ---
Author Name Unknown Address Unknown Organization K01:[facility] - [address] [place] [address] Laboratory Report Ordering Provider Test Date Status DEBBIE LEHMAN 01/09/2023 21:59:08 Final Observation Date Value Abnormality Reference (Units ) Status Magnesium 01/09/2023 21:59:08 2.3 1.5-2.6 (m g/dL) Final Performing Location [facility] - [address] [place] [address]
--- OUTSIDE RECORDS SUMMARY | 2023-03-09 14:39 | External Medical Summary ---
Author Name Unknown Address Unknown Organization K01:[facility] - [address] [place] [address] Laboratory Report Ordering Provider Test Date Status DEBBIE LEHMAN 01/09/2023 17:35:22 Final Observation Date Value Abnormality Reference (Units ) Status Magnesium 01/09/2023 17:35:22 1.5 1.5-2.6 (m g/dL) Final Performing Location [facility] [place] [address] [place] [id number]
--- OUTSIDE RECORDS SUMMARY | 2023-03-09 14:39 | External Medical Summary ---
Author Name Unknown Address Unknown Organization K01:LABORATORY [facility] [place] - [address] [address] Laboratory Report Ordering Provider Test Date Status MARKCONSTANTINEKHRIS 01/10/2023 04:34:45 Final Observation Date Value Abnormality Reference (Units ) Status Lactic Acid 01/10/2023 04:34:45 1.1 0.4-2.0 (mmol/L) Final Performing Location [facility] - [address] [place] [address]
--- OUTSIDE RECORDS SUMMARY | 2023-03-09 14:39 | External Medical Summary ---
Author Name Unknown Address Unknown Organization K01:LABORATORY [facility] [place] - [facility] [place] [address] Laboratory Report Ordering Provider Test Date Status CHARLENE CONTRERAS 01/10/2023 04:34:45 Final CRRT Labs: check once daily if not done already
Labs to be Drawn Peripherally

Warfarin Therapy
INR: 2.0-3.0 conventional anticoagulation
INR: 2.5-3.5 high intensity anticoagulation Observation Date Value Abnormality Reference (Units ) Status PT 01/10/2023 04:34:45 15.0 11.6-15.2 (seconds) Final INR 01/10/2023 04:34:45 1.2 0.8-1.2 Final Performing Location LABORATORY [facility] [place] - [address] [place] [address]
--- OUTSIDE RECORDS SUMMARY | 2023-03-09 14:39 | External Medical Summary ---
Author Name Unknown Address Unknown Organization K01:LABORATORY [facility] - [address] [place] [address] Laboratory Report Ordering Provider Test Date Status MARKCONSTANTINEKHRIS 01/09/2023 21:59:08 Final Observation Date Value Abnormality Reference (Units ) Status Lactic Acid 01/09/2023 21:59:08 0.7 0.4-2.0 (mmol/L) Final Performing Location [facility] - [address] [place] [address]
--- OUTSIDE RECORDS SUMMARY | 2023-03-09 14:39 | External Medical Summary ---
Author Name Unknown Address Unknown Organization K01:[facility] [place] [address] [place] [address] Laboratory Report Ordering Provider Test Date Status CHARLENE CONTRERAS 01/10/2023 04:34:45 Final CRRT Labs: Check at initiati on of CRRT, One hour after CRRT and Every 6 hours
Labs to be Drawn Peripherally
Send in a separate tube. Observation Date Value Abnormality Reference (Units ) Status Calcium.ionized [Moles/volume] in Blood by Ion-selective membrane electrode (ISE) 01/10/2023 04:34:45 0.98 Below low normal 1.13-1.32 (mmol/L) Final Performing Location [facility] [place] [address] [place] [address]
--- OUTSIDE RECORDS SUMMARY | 2023-03-09 14:39 | External Medical Summary ---
Author Name Unknown Address Unknown Organization K01:[facility]ORY [facility] [place] [address] [address] Laboratory Report Ordering Provider Test Date Status LAURIE FLOYDBetzaida 01/09/2023 17:35:22 Final Observation Date Value Abnormality Reference (Units ) Status Lactic Acid 01/09/2023 17:35:22 0.7 0.4-2.0 (mmol/L) Final Performing Location [facility] - [address] [place] [address]
--- OUTSIDE RECORDS SUMMARY | 2023-03-09 14:40 | External Medical Summary ---
Author Name Unknown Address Unknown Organization K01:[facility] [place] [address] [facility] [place] [address] Laboratory Report Ordering Provider Test Date Status DEBBIE LEHMAN 01/08/2023 23:07:02 Final Observation Date Value Abnormality Reference (Units ) Status Body temperature 01/08/2023 23:07:02 37.0 (C) Final pH of Arterial blood 01/08/2023 23:07:02 7.327 Below low normal 7.350-7.450 (units) Final Carbon dioxide [Partial pressure] in Arterial blood 01/08/2023 23:07:02 34.1 Below low normal 35.0-45.0 (mmHg) Final Oxygen [Partial pressure] in Arterial blood 01/08/2023 23:07:02 132.0 Above high normal 75.0-100.0 (mmHg) Final Base excess, Arterial 01/08/2023 23:07:02 -7.3 Below low normal -2.0-2.0 (mmol/L) Final Hemoglobin [Mass/volume] in Blood by Oximetry 01/08/2023 23:07:02 9.5 Below low normal 12.0-15.3 (g/dL) Final Oxyhemoglobin, Arterial (FO2HB) 01/08/2023 23:07:02 96.6 94.0-99.0 (% total Hgb) Final Carboxyhemoglobin 01/08/2023 23:07:02 1.0 <=1.5 (% total Hgb) Final Smokers: 0-9.0 % Methemoglobin 01/08/2023 23:07:02 0.8 <=1.5 (% total Hgb) Final Deoxyhemoglobin/Hemog lobin.total in Arterial blood 01/08/2023 23:07:02 1.6 0.0-5.0 (% total Hgb) Final Oxygen content in Arterial blood 01/08/2023 23:07:02 13.1 Below low normal 15.0-24.0 (%vol) Final Oxygen/Total gas setting [Volume Fraction] Ventilator 01/08/2023 23:07:02 50% (%) Final O2 FLOW, ARTERIAL - [facility] 01/08/2023 23:07:02 Not Provided (L/min) Final Bicarbonate, Venous, POC (i-STAT) 01/08/2023 23:07:02 17.4 Below low normal 23.0-31.0 (mmol/L) Final Performing Location LAB[facility]ATORY [facility] [place] [address] [facility] [address]
--- OUTSIDE RECORDS SUMMARY | 2023-03-09 14:40 | External Medical Summary | Summary of Care ---
Author Name Unknown Organization [facility] Address [address] [place] [address] Phone [phone] Care Team Providers Care Winch Truck Operator Name Role Phone Mallika Sanderson MD Primary Care Provide r Reason for Visit * Auth/Cert Specialty Diagnoses / Procedures Referred By Otilia t Referred To Contact Diagnoses Septic shock (HCC) Sepsis due to pneumonia (HCC) ESRD; septic Shock Referral ID Status Reason Start Date Expiration Date Visits Re quested Visits Authorized [id number] Encounter Details Date Type Department Care Team Description 01/08/2023 Hospital Encounter Cardiac Studies [facility] [place] [address] [place] [address] Allergies No known active allergiesdocumented as of this encounter (statuses as of 01/09/2023) Medications Medication Sig Dispensed Refills Start Date [...] Suspended Additional Information Patient taking differently:2 Puff [id number] PRN, Reported on 12/07/2015 levothyroxine (LEVOXYL) 175 MCG Tablet Take 175 mcg by mouth once a day on Sunday, , Sunday, and Sunday only. 0 Suspended Cholecalciferol (VITAMIN D3) 1000 UNITS CAPS Take by mouth daily. Patient not taking due to constipation 0 Suspended LORazepam (ATIVAN) 1 MG Tablet Take 1 mg by mouth 2 times a day as needed. 0 11/24/2015 Suspended Levothyroxine Sodium 300 MCG Tablet Take 1 Tab by mouth once a day on Sunday, Sunday, and Sunday only. 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 01/08/2023 Septic shock 01/08/2023 ESRD (end stage renal disease) on dialys is 01/07/2023 Pneumonia due to COVID-19 virus 01/07/20 23 Hyperkalemia 01/06/2023 Shock 01/06/[address] fistula malfunction 01/07/20 COPD, group B, by GOLD 2017 classificati on 09/16/2018 Overview: Per COPD GOLD Classification CHB (complete heart block) 05/28/2018 Generalized abdominal pain 10/14/2015 Cardiac pacemaker in situ 12/03/2014 S/P MVR (mitral valve repair) 02/24/2014 S/P TVR (tricuspid valve repair) 014 Preoperative cardiovascular examination 02/24/2014 Opiate overdose 05/20/2013 Central hypoventilation syndrome 014 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 Respiratory failure, [id number] Unresponsive episode 04/11/2013 S/P mitral valve repair [...] as of this encounter (statuses as of 01/09/2023) Resolved Problems Problem Noted Date Resolved Date Heart block 02/04/2013 02/12/2018 [employer] Other*[id number] 201205/16/2016 Overview: Study Title: Genomic Markers for Patients with Cardiovascular Disease Project # [id number] Cistern Room Operator: Eduarda Mcgrath MD [phone] S/P tricuspid valve replacement 01/13/2013 01/27/2013 S/P [...] as of this encounter (statuses as of 01/09/2023) Immunizations Name Administration Dates Next Due COVID-19 mRNA, LNP-s, No Pre serve, 2-Dose Series (Conatix) 07/28/2020,07/07/2020 COVID-19, LNP-s, No Preserve , Kuldip-sucrose, [...] 02/02/2023 Cardiac Studies [facility] [address] [place] [id number] 02/02/2023 Office Visit Cardiology Mila Gonsalves PA-C [address] [place] [id number] Health Maintenance Due Date Last Done Comments Alpha-1 Antitrypsin 1982 Zoster Vaccines (1 of [...] 01/21/2018, 01/21/2018, 01/06/2013, Additional history exists TSH 01/07/2024 01/06/2023, 03/09, 02/06/2013, Additional history exists O2 ASSESSMENT COMPLETED IN PAST YEAR FOR COPD 01/10/2024 01/09/2023 Diabetes Screening 01/09/2026 01/09/2023, 1 , 01/08/2023, Additional history exists DTaP,Tdap,and Td Vaccines (3 [...] this encounter Medical Devices Implanted Type Area Manager Branch Device Identifier Shelf Expiration Date Model / Serial / Lot Ring Tricuspid 28mm - [id number] [place]ed:Q[place] 12/27/2012 [place] [facility] [place]: Heart [employer] ARIEL 04/17/2017 [id number] / [id number] / [id number] documented as of this encounter Procedures Procedure Name Priority Date/Time Associated Diagnosis Comments ECHO, COMPLETE (2D), TRANS-THORACIC Routine 01/08/2023 2:09 PM EDT Shock (HCC) documented in this encounter Results * ECHO, COMPLETE (2D), TRANS-THORACIC (01/08/2023 2:09 PM EDT) 01/08/2023 1:24 PM EDT Jos Burdick MD [facility] documented in this encounter Additional Health Concerns [...] the patient have Health Care Power of High School Chemistry Teacher? No Care Teams Winch Truck Operator Relationship Specialty Start Date End Date Mallika Sanderson MD [address] [place] [address] PCP - General Internal Medicine 12/08/22 documented as of this encounter
--- OUTSIDE RECORDS SUMMARY | 2023-03-09 14:40 | External Medical Summary ---
Author Name Unknown Address Unknown Organization : Laboratory Report Ordering Provider Test Date Status SERA LESLIE 01/09/2023 12:35:28 Final Observation Date Value Abnormality Reference (Units ) Status Glucose Point of Care 01/09/2023 12:35:28 122 Above high normal 70-120 (mg/dL) Final Performing Location
--- OUTSIDE RECORDS SUMMARY | 2023-03-09 14:40 | External Medical Summary ---
Author Name Unknown Address Unknown Organization K01:LABORATORY [facility] [place] - [facility] [address] [facility] [address] Laboratory Report Ordering Provider Test Date Status DEBBIE LEHMAN 01/09/2023 09:43:26 Final Observation Date Value Abnormality Reference (Units ) Status BUN 01/09/2023 09:43:26 12 6-20 (mg/dL) Final Creatinine 01/09/2023 09:43:26 1.5 Above high normal 0.5-1.0 (mg/dL) Final Glomerular filtration rate/1.73 sq M.predicted [Volume Rate/Area] in Serum, Plasma or Blood by Creatinine-based formula (CKD-EPI) 01/09/2023 09:43:26 40 Below low normal >=60 (mL/min) Final eGFR is calculated based on the CKD-EPI 2020 equation SODIUM 01/09/2023 09:43:26 131 Below low normal 135 -146 (mmol/L) Final Potassium 01/09/2023 09:43:26 3.2 Below low normal 3.5 -5.1 (mmol/L) Final Cl 01/09/2023 09:43:26 97 Below low normal 98- 107 (mmol/L) Final CO2 01/09/2023 09:43:26 17 Below low normal 22- 32 (mmol/L) Final Anion gap 01/09/2023 09:43:26 17 Above high normal 7- 15 (mmol/L) Final Glucose 01/09/2023 09:43:26 120 70-120 (mg /dL) Final Calcium 01/09/2023 09:43:26 8.6 8.4-10.2 ( mg/dL) Final Performing Location LABORATORY [facility] [place] - [address] [place] [address]
--- OUTSIDE RECORDS SUMMARY | 2023-03-09 14:40 | External Medical Summary | Summary of Care ---
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 01/08/2023 Encephalopathy acute 01/08/2023 History of mechanical ventilation 2022 Heart failure, systolic and diastolic, 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 01/08/2023 Septic shock 01/08/2023 ESRD (end stage renal disease) on dialys is 01/07/2023 Pneumonia due to COVID-19 virus 01/07/20 23 Hyperkalemia 01/06/2023 Shock 01/06/[address] fistula malfunction 01/07/20 23 COPD, group B, by GOLD 2017 classificati on 09/16/2018 Overview: Per COPD GOLD Classification CHB (complete heart block) 05/28/2018 Generalized abdominal pain 10/14/2015 Cardiac pacemaker in situ 12/03/2014 S/P MVR (mitral valve repair) 02/24/2014 S/P TVR (tricuspid valve repair) 014 Preoperative cardiovascular examination 02/24/2014 Opiate overdose 05/20/2013 Central hypoventilation syndrome 014 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 Respiratory failure, jqxdn-fr-acduvvh Unresponsive episode 04/11/2013 S/P mitral valve repair [...] Heart block 02/04/2013 02/12/2018 [employer] Other*[id number] 201205/16/2016 Overview: Study Title: Genomic Markers for Patients with Cardiovascular Disease Project # [id number] Still Pump Operator: Eduarda Mcgrath MD [phone] S/P tricuspid valve replacement 01/13/2013 01/27/2013 S/P [...] mRNA, LNP-s, No Pre serve, 2-Dose Series ([employer]) 07/28/2020,07/07/2020 COVID-19, LNP-s, No Preserve , Kuldip-sucrose, Ages 12+ (Pfizer) 07/19/2021 Covid-19, Mrna, Lnp-s, Pf, B ivalent, 30 Mcg, IM, 12 yrs and above ([employer]) 03/07/2022 H1N1 2009 Influenza, IM 05/04/2009 Hepatitis [...] Studies Cardiology [facility] [address] [place] [address] 02/02/2023 Office Visit Cardiology Mila Gonsalves PA-C [address] [place] [address] Health Maintenance Due Date Last Done Comments Alpha-1 Antitrypsin 1982 Zoster Vaccines (1 of 2) 07/31/1983 PAP SMEAR-EVERY 3 YRS,AGES 18-100 02/16/2003 02/17/2000 Cologuard 2009 Fecal Occult Blood Test 2009 10/25/2007 Sigmoidoscopy 2009 Mammogram 11/04/2009 11/04/2008 Lipid Panel 12/19/2016 12/20/2011, 09/08, 01/28/2008, Additional history exists Colonoscopy 10/12/2018 10/12/2008 Colorectal Cancer Screening 10/12/2018 Depression Screening 03/21/2019 03/21/2018 COVID-19 Vaccine (5 - 2023-24 season) 2022 03/07/2022, 07/19/2021, 07/28/2020, Additional history [...] this encounter Medical Devices Implanted Type Area Grant Specialist Device Identifier Shelf Expiration Date Model / Serial / Lot Ring Tricuspid 28mm - [id number] Implanted:Qty: 1 on 12/27/2012 at [facility] Right: Heart [employer] ARIEL 04/17/2017 [id number] documented as of this encounter Procedures Procedure Name Priority Date/Time Associated Diagnosis Comments RADIOLOGY EXAM - IR (IMAGES ONLY, NO REPORT) Routine 01/05/2023 12:50 PM EDT documented in this encounter Results * RADIOLOGY EXAM - IR (IMAGES ONLY, NO REPORT) (01/05/2023 12:50 PM EDT) 01/05/2023 12:4 8 PM EDT Narrative Scheduling, Silent - 01/08/2023 11:35 AM EDT This is an imaging study not interpreted or resulted by a [facility] or [facility] contracted radiologist. Mallika MCKEON documented in this encounter Advance Directives Latest Code Status [...] the patient have Health Care Power of Mortarman? No Care Teams Cartridge Gauger Relationship Specialty Start Date End Date Mallika Sanderson MD [address] [place] [address] PCP - General Internal Medicine 12/08/22 documented as of this encounter
--- OUTSIDE RECORDS SUMMARY | 2023-03-09 14:40 | External Medical Summary ---
Author Name Unknown Address Unknown Organization K01:[facility] - [address] [place] [address] Laboratory Report Ordering Provider Test Date Status DEBBIE LEHMAN 01/08/2023 22:43:59 Final Observation Date Value Abnormality Reference (Units ) Status Phosphate 01/08/2023 22:43:59 3.5 2.5-4.8 (m g/dL) Final Performing Location [facility] - [address] [place] [address]
--- OUTSIDE RECORDS SUMMARY | 2023-03-09 14:40 | External Medical Summary ---
Author Name Unknown Address Unknown Organization K01:[facility] [address] [place] [address] Laboratory Report Ordering Provider Test Date Status CHARLENE CONTRERAS 01/09/2023 04:29:11 Final CRRT Labs: Check at initiati on of CRRT, One hour after CRRT and Every 6 hours
Labs to be Drawn Peripherally
Send in a separate tube. Observation Date Value Abnormality Reference (Units ) Status Calcium.ionized [Moles/volume] in Blood by Ion-selective membrane electrode (ISE) 01/09/2023 04:29:11 0.99 Below low normal 1.13-1.32 (mmol/L) Final Performing Location [facility] [place] [address] [place] [address]
--- OUTSIDE RECORDS SUMMARY | 2023-03-09 14:40 | External Medical Summary | Summary of Care ---
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 01/08/2023 Encephalopathy acute 01/08/2023 [...] hypoventilation syndrome 014 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 Respiratory failure, yctff-zr-btzvtox Unresponsive episode 04/11/2013 S/P mitral valve repair [...] Heart block 02/04/2013 02/12/2018 [employer] Other*[id number] 201205/16/2016 Overview: Study Title: Genomic Markers for Patients with Cardiovascular Disease Project # [id number] Corn Cutter Operator: Eduarda Mcgrath MD [phone] S/P tricuspid valve replacement 01/13/2013 01/27/2013 S/P [...] mRNA, LNP-s, No Pre serve, 2-Dose Series ([employer]) 07/28/2020,07/07/2020 COVID-19, LNP-s, No Preserve , Kuldip-sucrose, Ages 12+ (Pfizer) 07/19/2021 Covid-19, Mrna, Lnp-s, Pf, B ivalent, 30 Mcg, IM, 12 yrs and above ([employer]) 03/07/2022 H1N1 2009 Influenza, IM 05/04/2009 Hepatitis [...] 02/02/2023 Cardiac Studies [facility] [address] [place] [address] 02/02/2023 Office Visit Cardiology Mila Gonsalves PA-C [address] [place] [address] Health Maintenance Due Date Last Done Comments [...] this encounter Medical Devices Implanted Type Area Software Asset Manager Device Identifier Shelf Expiration Date Model / Serial / Lot Ring Tricuspid 28mm - [id number] Implanted:Qty: 1 on 12/27/2012 at [facility] Right: Heart Zhitu ARIEL 04/17/2017 [id number] / [id number] / [id number] documented as of this encounter Procedures Procedure Name Priority Date/Time Associated Diagnosis Comments RADIOLOGY EXAM - GENERAL RAD (IMAGES ONLY,NO REPORT) Routine 01/05/2023 2:45 PM EDT documented in this encounter Results * RADIOLOGY EXAM - GENERAL RAD (IMAGES ONLY,NO REPORT) (01/05/2023 2:45 PM EDT) 01/05/2023 2:44 PM EDT Narrative Scheduling, Silent - 01/08/2023 11:36 AM EDT This is an imaging study not interpreted or resulted by a [facility] or [facility] radiologist. Mallika Sanderson MD RADIOLOGY (RA D GENERAL) documented in this encounter Advance Directives Latest [...] the patient have Health Care Power of Ring Attacher? No Care Teams Carton Lettering Machine Operator Relationship Specialty Start Date End Date Mallika Sanderson MD [address] [place] [address] PCP - General Internal Medicine 12/08/22 documented as of this encounter
--- OUTSIDE RECORDS SUMMARY | 2023-03-09 14:40 | External Medical Summary ---
Author Name Unknown Address Unknown Organization K01:LABORATORY [facility] [place] - [facility] [address] [place] [address] Laboratory Report Ordering Provider Test Date Status DEBBIE LEHMAN 01/09/2023 04:29:11 Final Observation Date Value Abnormality Reference (Units ) Status BUN 01/09/2023 04:29:11 12 6-20 (mg/dL) Final Creatinine 01/09/2023 04:29:11 1.6 Above high normal 0.5-1.0 (mg/dL) Final Glomerular filtration rate/1.73 sq M.predicted [Volume Rate/Area] in Serum, Plasma or Blood by Creatinine-based formula (CKD-EPI) 01/09/2023 04:29:11 38 Below low normal >=60 (mL/min) Final eGFR is calculated based on the CKD-EPI 2020 equation SODIUM 01/09/2023 04:29:11 134 Below low normal 135 -146 (mmol/L) Final Potassium 01/09/2023 04:29:11 3.5 3.5-5.1 (m mol/L) Final Cl 01/09/2023 04:29:11 99 98-107 (mm ol/L) Final CO2 01/09/2023 04:29:11 17 Below low normal 22- 32 (mmol/L) Final Anion gap 01/09/2023 04:29:11 18 Above high normal 7- 15 (mmol/L) Final Glucose 01/09/2023 04:29:11 122 Above high normal 70 -120 (mg/dL) Final Calcium 01/09/2023 04:29:11 8.4 8.4-10.2 ( mg/dL) Final Performing Location LABORATORY [facility] - [address] [place] [address]
--- OUTSIDE RECORDS SUMMARY | 2023-03-09 14:40 | External Medical Summary ---
Author Name Unknown Address Unknown Organization K01:LABORATORY [facility] [place] - [facility] [place] [address] Laboratory Report Ordering Provider Test Date Status CHARLENE CONTRERAS 01/09/2023 04:29:11 Final CRRT Labs: check once daily if not done already
Labs to be Drawn Peripherally

Anticoagulation may affect testing. Refer to [facility] Test Catalog for a list of effects. Observation Date Value Abnormality Reference (Units ) Status aPTT panel - Platelet poor plasma 01/09/2023 04:29:11 32 21-38 (seconds) Final Performing Location LABORATORY [facility] [place] - [facility] [place] [address]
--- OUTSIDE RECORDS SUMMARY | 2023-03-09 14:40 | External Medical Summary ---
Author Name Unknown Address Unknown Organization K01:LAB[facility]ATORY [facility] [place] - [facility] [place] [address] Laboratory Report Ordering Provider Test Date Status CHARLENE CONTRERAS 01/09/2023 04:29:11 Final CRRT Labs: check once daily if not done already
Labs to be Drawn Peripherally

Warfarin Therapy
INR: 2.0-3.0 conventional anticoagulation
INR: 2.5-3.5 high intensity anticoagulation Observation Date Value Abnormality Reference (Units ) Status PT 01/09/2023 04:29:11 14.7 11.6-15.2 (seconds) Final INR 01/09/2023 04:29:11 1.1 0.8-1.2 Final Performing Location LABORATORY [facility] [place] - [address] [place] [address]
--- OUTSIDE RECORDS SUMMARY | 2023-03-09 14:40 | External Medical Summary ---
Author Name Unknown Address Unknown Organization K01:LABORATORY [facility] [place] - [address] [facility] [id number] Laboratory Report Ordering Provider Test Date Status CHARLENE CONTRERAS 01/09/2023 09:43:26 Final CRRT Labs: check once daily if not done already
Labs to be Drawn Peripherally
Send in a separate tube.
If the patient is to receive regional citrate anticoagulation, test POST FILTER and Peripheral Ionized Observation Date Value Abnormality Reference (Units ) Status Calcium.ionized [Moles/volume] in Blood by Ion-selective membrane electrode (ISE) 01/09/2023 09:43:26 1.02 Below low normal 1.13-1.32 (mmol/L) Final Performing Location LABORATORY [facility] - [address] [facility] [id number]
--- OUTSIDE RECORDS SUMMARY | 2023-03-09 14:40 | External Medical Summary ---
Author Name Unknown Address Unknown Organization K01:LAB[facility]ATORY [facility] - [address] [place] [address] Laboratory Report Ordering Provider Test Date Status DEBBIE LEHMAN 01/09/2023 04:29:11 Final Observation Date Value Abnormality Reference (Units ) Status Magnesium 01/09/2023 04:29:11 1.5 1.5-2.6 (m g/dL) Final Performing Location LAB[facility]ATORY [facility] - [address] [place] [address]
--- OUTSIDE RECORDS SUMMARY | 2023-03-09 14:40 | External Medical Summary ---
Author Name Unknown Address Unknown Organization K01:LABORATORY [facility] [place] - [address] [place] [address] Laboratory Report Ordering Provider Test Date Status DEBBIE LEHMAN 01/08/2023 22:43:59 Final Observation Date Value Abnormality Reference (Units ) Status BUN 01/08/2023 22:43:59 12 6-20 (mg/dL) Final Creatinine 01/08/2023 22:43:59 1.6 Above high normal 0.5-1.0 (mg/dL) Final Glomerular filtration rate/1.73 sq M.predicted [Volume Rate/Area] in Serum, Plasma or Blood by Creatinine-based formula (CKD-EPI) 01/08/2023 22:43:59 36 Below low normal >=60 (mL/min) Final eGFR is calculated based on the CKD-EPI 2020 equation SODIUM 01/08/2023 22:43:59 132 Below low normal 135 -146 (mmol/L) Final Potassium 01/08/2023 22:43:59 3.8 3.5-5.1 (m mol/L) Final Cl 01/08/2023 22:43:59 99 98-107 (mm ol/L) Final CO2 01/08/2023 22:43:59 17 Below low normal 22- 32 (mmol/L) Final Anion gap 01/08/2023 22:43:59 16 Above high normal 7- 15 (mmol/L) Final Glucose 01/08/2023 22:43:59 109 70-120 (mg /dL) Final Calcium 01/08/2023 22:43:59 8.5 8.4-10.2 ( mg/dL) Final Performing Location LABORATORY [facility] [place] - [address] [place] [address]
--- OUTSIDE RECORDS SUMMARY | 2023-03-09 14:40 | External Medical Summary ---
Author Name Unknown Address Unknown Organization K01:LAB[facility]ORY [facility] - [address] [place] [address] Laboratory Report Ordering Provider Test Date Status DEBBIE LEHMAN 01/09/2023 04:29:11 Final Observation Date Value Abnormality Reference (Units ) Status Phosphate 01/09/2023 04:29:11 3.8 2.5-4.8 (m g/dL) Final Performing Location [facility] - [address] [place] [address]
--- OUTSIDE RECORDS SUMMARY | 2023-03-09 14:40 | External Medical Summary ---
Author Name Unknown Address Unknown Organization K01:[facility] - [address] [place] [address] Laboratory Report Ordering Provider Test Date Status DEBBIE LEHMAN 01/09/2023 17:35:22 Final Observation Date Value Abnormality Reference (Units ) Status Phosphate 01/09/2023 17:35:22 3.5 2.5-4.8 (m g/dL) Final Performing Location [facility] - [address] [place] [address]
--- OUTSIDE RECORDS SUMMARY | 2023-03-09 14:40 | External Medical Summary ---
Author Name Unknown Address Unknown Organization K01:LAB[facility] - [address] [place] [address] Laboratory Report Ordering Provider Test Date Status DEBBIE LEHMAN 01/09/2023 09:43:26 Final Observation Date Value Abnormality Reference (Units ) Status Magnesium 01/09/2023 09:43:26 1.5 1.5-2.6 (m g/dL) Final Performing Location [facility] - [address] [place] [address]
--- OUTSIDE RECORDS SUMMARY | 2023-03-09 14:40 | External Medical Summary ---
Author Name Unknown Address Unknown Organization K01:[facility]ORY [facility] [place] [address] [place] [address] Laboratory Report Ordering Provider Test Date Status CHARLENE CONTRERAS 01/09/2023 04:29:11 Final Post Filter Ionized Calcium Observation Date Value Abnormality Reference (Units ) Status Calcium.ionized [Moles/volume] in Blood drawn from CRRT circuit 01/09/2023 04:29:11 0.39 0.25-0.50 (mmol/L) Final Performing Location LAB[facility]ORY [facility] [address] [place] [address]
--- OUTSIDE RECORDS SUMMARY | 2023-03-09 14:40 | External Medical Summary ---
Author Name Unknown Address Unknown Organization K01:LAB[facility] - [address] [place] [address] Laboratory Report Ordering Provider Test Date Status DEBBIE LEHMAN 01/08/2023 22:43:59 Final Observation Date Value Abnormality Reference (Units ) Status Magnesium 01/08/2023 22:43:59 1.5 1.5-2.6 (m g/dL) Final Performing Location [facility] - [address] [place] [address]
--- OUTSIDE RECORDS SUMMARY | 2023-03-09 14:40 | External Medical Summary ---
Author Name Unknown Address Unknown Organization K01:LAB[facility]ORY [facility] - [address] [place] [address] Laboratory Report Ordering Provider Test Date Status DEBBIE LEHMAN 01/09/2023 09:43:26 Final Observation Date Value Abnormality Reference (Units ) Status Phosphate 01/09/2023 09:43:26 3.8 2.5-4.8 (m g/dL) Final Performing Location [facility] - [address] [place] [address]
--- OUTSIDE RECORDS SUMMARY | 2023-03-09 14:40 | External Medical Summary ---
Author Name Unknown Address Unknown Organization K01:LABORATORY [facility] [place] - [address] [place] [address] Laboratory Report Ordering Provider Test Date Status CHARLENE CONTRERAS 01/08/2023 16:36:23 Final Post Filter Ionized Calcium Observation Date Value Abnormality Reference (Units ) Status Calcium.ionized [Moles/volume] in Blood drawn from CRRT circuit 01/08/2023 16:36:23 0.42 0.25-0.50 (mmol/L) Final Performing Location LABORATORY [facility] [place] - [address] [place] [address]
--- OUTSIDE RECORDS SUMMARY | 2023-03-09 14:40 | External Medical Summary ---
Author Name Unknown Address Unknown Organization K01:LABORATORY [facility] [place] - [address] [place] [address] Laboratory Report Ordering Provider Test Date Status CHARLENE CONTRERAS 01/09/2023 04:29:11 Final CRRT Labs: check once daily if not done already
Labs to be Drawn Peripherally Observation Date Value Abnormality Reference (Units ) Status SYNC LEUKOCYTES IN BLOOD BY AUTOMATED COUNT 01/09/2023 04:29:11 14.23 Above high normal 4.00-10.80 (K/uL) Final Segs 01/09/2023 04:29:11 85.8 Above high normal 40.0-75.0 (%) Final Lymphs % 01/09/2023 04:29:11 5.8 Below low normal 18.0-42.0 (%) Final Monos 01/09/2023 04:29:11 7.5 1.0-11.0 (%) Final Eosinophils 01/09/2023 04:29:11 0.0 0.0-6.0 (%) Final Basos 01/09/2023 04:29:11 0.1 0.0-2.0 (%) Final Immature Granulocyte, Percent 01/09/2023 04:29:11 0.8 0.0-2.0 (%) Final Absolute Segs 01/09/2023 04:29:11 12.21 Above high normal 1.80-7.70 (K/uL) Final Lymphs, absolute 01/09/2023 04:29:11 0.83 Below low normal 1.00-4.80 (K/ul) Final Monos, Abs 01/09/2023 04:29:11 1.07 0.00-1.10 (K/uL) Final Eos, Abs 01/09/2023 04:29:11 0.00 0.00-0.70 (K/uL) Final Basos, Abs 01/09/2023 04:29:11 0.01 0.00-0.20 (K/uL) Final Immature Granulocytes, Number 01/09/2023 04:29:11 0.11 0.00-0.20 (K/uL) Final Performing Location LABORATORY [facility] [place] - [facility] [address] [facility] [address]
--- OUTSIDE RECORDS SUMMARY | 2023-03-09 14:40 | External Medical Summary | Summary of Care ---
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 01/08/2023 Encephalopathy acute 01/08/2023 [...] hypoventilation syndrome 014 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 Respiratory failure, nmshp-um-fqwtcth Unresponsive episode 04/11/2013 S/P mitral valve repair [...] Heart block 02/04/2013 02/12/2018 [employer] Other*[id number] 201205/16/2016 Overview: Study Title: Genomic Markers for Patients with Cardiovascular Disease Project # [id number] Data Steward: Eduarda Mcgrath MD [phone] S/P tricuspid valve replacement 01/13/2013 01/27/2013 S/P [...] mRNA, LNP-s, No Pre serve, 2-Dose Series ([employer]) 07/28/2020,07/07/2020 COVID-19, LNP-s, No Preserve , Kuldip-sucrose, Ages 12+ (Pfizer) 07/19/2021 Covid-19, Mrna, Lnp-s, Pf, B ivalent, 30 Mcg, IM, 12 yrs and above ([employer]) 03/07/2022 H1N1 2009 Influenza, IM 05/04/2009 Hepatitis [...] 02/02/2023 Cardiac Studies [facility]iology [facility] [address] [place] [address] 02/02/2023 Office Visit Cardiology Mila Gonsalves PA-C [address] [place] [address] Health Maintenance Due Date Last Done Comments [...] this encounter Medical Devices Implanted Type Area 21 Dealer Device Identifier Shelf Expiration Date Model / Serial / Lot Ring Tricuspid 28mm - [id number] Implanted:Qty: 1 on 12/27/2012 at [facility] Right: Heart [employer] ARIEL 04/17/2017 [id number] / [id number] / [id number] documented as of this encounter Procedures Procedure Name Priority Date/Time Associated Diagnosis Comments RADIOLOGY EXAM - GENERAL RAD (IMAGES ONLY,NO REPORT) Routine 01/05/2023 5:50 PM EDT documented in this encounter Results * RADIOLOGY EXAM - GENERAL RAD (IMAGES ONLY,NO REPORT) (01/05/2023 5:50 PM EDT) 01/05/2023 5:50 PM EDT Narrative Scheduling, Silent - 01/08/2023 11:32 AM EDT This is an imaging study not interpreted or resulted by a [facility] or [facility] radiologist. Mallika Sanderson MD RADIOLOGY (RA [...] the patient have Health Care Power of Optical Instrument Assembler? No Care Teams Director Medical Affairs Relationship Specialty Start Date End Date Mallika Sanderson MD [address] [place] [address] PCP - General Internal Medicine 12/08/22 documented as of this encounter
--- OUTSIDE RECORDS SUMMARY | 2023-03-09 14:40 | External Medical Summary ---
Author Name Unknown Address Unknown Organization K01:[facility] [place] [address] [place] [address] Laboratory Report Ordering Provider Test Date Status CHARLENE CONTRERAS 01/08/2023 22:43:59 Final CRRT Labs: Check at initiati on of CRRT, One hour after CRRT and Every 6 hours
Labs to be Drawn Peripherally
Send in a separate tube. Observation Date Value Abnormality Reference (Units ) Status Calcium.ionized [Moles/volume] in Blood by Ion-selective membrane electrode (ISE) 01/08/2023 22:43:59 0.98 Below low normal 1.13-1.32 (mmol/L) Final Performing Location [facility] [place] [address] [place] [address]
--- OUTSIDE RECORDS SUMMARY | 2023-03-09 14:41 | External Medical Summary ---
Author Name Unknown Address Unknown Organization [id number]:[facility] [place] - [address] [place] [address] Laboratory Report Ordering Provider Test Date Status CHARLENE CONTRERAS 01/08/2023 16:36:23 Final CRRT Labs: Check at initiati on of CRRT, One hour after CRRT and Every 6 hours
Labs to be Drawn Peripherally
Send in a separate tube. Observation Date Value Abnormality Reference (Units ) Status Calcium.ionized [Moles/volume] in Blood by Ion-selective membrane electrode (ISE) 01/08/2023 16:36:23 0.93 Below low normal 1.13-1.32 (mmol/L) Final Performing Location [facility] [place] - [address] [place] [address]
--- OUTSIDE RECORDS SUMMARY | 2023-03-09 14:41 | External Medical Summary ---
Author Name Unknown Address Unknown Organization K01:[facility] - [address] [place] [address] Laboratory Report Ordering Provider Test Date Status DEBBIE LEHMAN 01/08/2023 16:36:23 Final Observation Date Value Abnormality Reference (Units ) Status Magnesium 01/08/2023 16:36:23 1.6 1.5-2.6 (m g/dL) Final Performing Location [facility] - [address] [place] [address]
--- OUTSIDE RECORDS SUMMARY | 2023-03-09 14:41 | External Medical Summary | Summary of Care ---
Author Name Unknown Organization [facility] Address [address] [place] [address] Phone [phone] Care Team Providers Care Gin Inspector Name Role Phone Mallika Sanderson MD Primary Care Provide r Encounter Details Date Type Department Care Team Description 01/05/2023 Orders Only Unspecified Department Mallika Sanderson MD [address] [place] [address] Allergies No known active allergiesdocumented as of this encounter (statuses as of 01/08/2023) Medications Medication Sig Dispensed Refills Start Date [...] Suspended Additional Information Patient taking differently:2 Puff MgxseueeupF6N PRN, Reported on 12/07/2015 levothyroxine (LEVOXYL) 175 [...] as of this encounter (statuses as of 01/08/2023) Active Problems Problem Noted Date ESRD (end stage renal disease) on dialys is 01/07/2023 Pneumonia due to COVID-19 virus 01/07/20 23 Hyperkalemia 01/06/2023 Septic shock 01/06/[address] fistula malfunction 01/07/20 23 COPD, group B, by GOLD 2017 classificati on 09/16/2018 Overview: Per COPD GOLD Classification CHB (complete heart block) 05/28/2018 Generalized abdominal pain 10/14/2015 Cardiac pacemaker in situ 12/03/2014 S/P MVR (mitral valve repair) 02/24/2014 S/P TVR (tricuspid valve repair) 014 Preoperative cardiovascular examination 02/24/2014 Opiate overdose 05/20/2013 Central hypoventilation syndrome 014 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 Respiratory failure, ytkaf-ng-npdtfsw Unresponsive episode 04/11/2013 S/P mitral valve repair [...] as of this encounter (statuses as of 01/08/2023) Resolved Problems Problem Noted Date Resolved Date Heart block 02/04/2013 02/12/2018 [employer] Other*[id number] 201205/16/2016 Overview: Study Title: Genomic Markers for Patients with Cardiovascular Disease Project # [id number] Senior Tableau Developer: Eduarda Mcgrath MD [phone] S/P tricuspid valve replacement 01/13/2013 01/27/2013 S/P [...] as of this encounter (statuses as of 01/08/2023) Immunizations Name Administration Dates Next Due COVID-19 mRNA, LNP-s, No Pre serve, 2-Dose Series ([employer] 07/28/2020,07/07/2020 COVID-19, LNP-s, No Preserve , Kuldip-sucrose, [...] 02/02/2023 Cardiac Studies Cardiology [facility] [address] [place] [address] 02/02/2023 Office Visit Cardiology Mila Gonsalves PA-C [address] [place] [address] Health Maintenance Due Date Last Done Comments Alpha-1 Antitrypsin 1982 Zoster Vaccines (1 of 2) 07/31/1983 PAP SMEAR-EVERY 3 YRS,AGES 18-100 02/16/2003 02/17/2000 Cologuard 2009 Fecal Occult Blood Test 2009 10/25/2007 Sigmoidoscopy 2009 Mammogram 11/04/2009 11/04/2008 Lipid Panel 12/19/2016 12/20/2011, 09/08, 01/28/2008, Additional history exists Colonoscopy 10/12/2018 10/12/2008 Colorectal Cancer Screening 10/12/2018 Depression Screening 03/21/2019 03/21/2018 Influenza Vaccine (FLU shot) (#1) 2022 01/21/2018, 01/21/2018, 01/06/2013, Additional history exists TSH 01/07/2024 01/06/2023, 03/09, 02/06/2013, Additional history exists O2 ASSESSMENT COMPLETED IN PAST YEAR FOR COPD 01/09/2024 01/08/2023 Diabetes Screening 01/08/2026 01/08/2023, 1 , 01/08/2023, Additional history exists DTaP,Tdap,and Td Vaccines (3 - Td or Tdap) 03/21/2028 03/21/2018, 11/05/2007 Pneumococcal Vaccine: Pediatrics (0 to 5 Years) and At-Risk Patients (6 to 64 Years) (4 - PPSV23 or PCV20) 2029 10/18/2018, 07/19/2018, 05/02/2013, Additional history exists COVID-19 Vaccine Completed 03/07/2022, 03/2022, 07/28/2020, Additional history exists Hepatitis B Completed 06/21/2022, 04/09, 03/29/2022, Additional history exists GARDASIL-HPV IMMUNIZATION SERIES Aged Out No longer eligible based on patient's age to complete this topic MENINGOCOCCAL (MENACTRA/MENVEO) Aged Out No longer eligible based on patient's age to complete this topic documented as of this encounter Medical Devices Implanted Type Area Instrument Mechanic Weapons System Device Identifier Shelf Expiration Date Model / Serial / Lot Ring Tricuspid 28mm - [id number] Implanted:Qty: 1 on 12/27/[address] [facility] Right: Heart [employer] ARIEL 04/17/2017 [id number] / [id number] / [id number] documented as of this encounter Procedures Procedure [...] interpreted or resulted by a [facility] or [employer] contracted radiologist. Mallika Sanderson MD RAD SPECIAL P ROCEDURES documented in this encounter Additional Health Concerns [...] the patient have Health Care Power of Coating And Baking Operator? No Care Teams Gin Inspector Relationship Specialty Start Date End Date Mallika Sanderson MD [address] [place] [address] PCP - General Internal Medicine 12/08/22 documented as of this encounter
--- OUTSIDE RECORDS SUMMARY | 2023-03-09 14:41 | External Medical Summary | Summary of Care ---
Author Name Unknown Organization [facility] Address [address] [place] [address] Phone [phone] Care Team Providers Care Workers Compensation Defense Attorney Name Role Phone Mallika Sanderson MD Primary Care Provide r Encounter Details Date Type Department Care Team Description 01/05/2023 Orders Only Unspecified Department Mallika Sanderson MD [address] [place] [address] Allergies No known active allergiesdocumented as of [...] Suspended Additional Information Patient taking differently:2 Puff HjyximltmmH0Y PRN, Reported on 12/07/2015 levothyroxine (LEVOXYL) 175 [...] hypoventilation syndrome 014 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 Respiratory failure, swubi-st-dhrsbtq Unresponsive episode 04/11/2013 S/P mitral valve repair [...] Heart block 02/04/2013 02/12/2018 [employer] Other*[id number] 201205/16/2016 Overview: Study Title: Genomic Markers for Patients with Cardiovascular Disease Project # [id number] Manager Of Quality: Eduarda Mcgrath MD [phone] S/P tricuspid valve replacement 01/13/2013 01/27/2013 S/P [...] mRNA, LNP-s, No Pre serve, 2-Dose Series ([employer]) 07/28/2020,07/07/2020 COVID-19, LNP-s, No Preserve , Kuldip-sucrose, [...] 02/02/2023 Cardiac Studies [facility] [address] [place] [address] 02/02/2023 Office Visit Cardiology Mila Gonsalves PA-C [address] [place] [address] Health Maintenance Due Date Last Done Comments [...] this encounter Medical Devices Implanted Type Area Credit Collections Specialist Device Identifier Shelf Expiration Date Model / Serial / Lot Ring Tricuspid 28mm - [id number] Implanted:Qty: 1 on 12/27/2012 at [facility] Right: Heart [employer] ARIEL 04/17/2017 [id number] / [id number] / [id number] documented as of this encounter Procedures Procedure [...] interpreted or resulted by a [facility] or [employer] contracted radiologist. Mallika Sanderson MD RADIOLOGY (RA D GENERAL) documented in this encounter Additional Health Concerns [...] the patient have Health Care Power of Cut Pressman? No Care Teams Workers Compensation Defense Attorney Relationship Specialty Start Date End Date Mallika Sanderson MD [address] [place] [address] PCP - General Internal Medicine 12/08/22 documented as of this encounter
--- OUTSIDE RECORDS SUMMARY | 2023-03-09 14:41 | External Medical Summary ---
Author Name Unknown Address Unknown Organization [id number]:[facility] [place] [address] [place] [address] Laboratory Report Ordering Provider Test Date Status DEBBIE LEHMAN 01/08/2023 16:36:23 Final Observation Date Value Abnormality Reference (Units ) Status BUN 01/08/2023 16:36:23 13 6-20 (mg/dL) Final Creatinine 01/08/2023 16:36:23 1.8 Above high normal 0.5-1.0 (mg/dL) Final Glomerular filtration rate/1.73 sq M.predicted [Volume Rate/Area] in Serum, Plasma or Blood by Creatinine-based formula (CKD-EPI) 01/08/2023 16:36:23 32 Below low normal >=60 (mL/min) Final eGFR is calculated based on the CKD-EPI 2020 equation SODIUM 01/08/2023 16:36:23 133 Below low normal 135 -146 (mmol/L) Final Potassium 01/08/2023 16:36:23 3.8 3.5-5.1 (m mol/L) Final Cl 01/08/2023 16:36:23 100 98-107 (mm ol/L) Final CO2 01/08/2023 16:36:23 17 Below low normal 22- 32 (mmol/L) Final Anion gap 01/08/2023 16:36:23 16 Above high normal 7- 15 (mmol/L) Final Glucose 01/08/2023 16:36:23 116 70-120 (mg /dL) Final Calcium 01/08/2023 16:36:23 8.4 8.4-10.2 ( mg/dL) Final Performing Location [facility] [place] - [address] [place] [address]
--- OUTSIDE RECORDS SUMMARY | 2023-03-09 14:41 | External Medical Summary ---
Author Name Unknown Address Unknown Organization [id number]:[facility] [place] - [address] [facility] [place] [address] Laboratory Report Ordering Provider Test Date Status DEBBIE LEHMAN 01/08/2023 16:29:51 Final Observation Date Value Abnormality Reference (Units ) Status Body temperature 01/08/2023 16:29:51 37.0 (C) Final pH of Arterial blood 01/08/2023 16:29:51 7.281 Below low normal 7.350-7.450 (units) Final Carbon dioxide [Partial pressure] in Arterial blood 01/08/2023 16:29:51 38.8 35.0-45.0 (mmHg) Final Oxygen [Partial pressure] in Arterial blood 01/08/2023 16:29:51 101.0 Above high normal 75.0-100.0 (mmHg) Final Base excess, Arterial 01/08/2023 16:29:51 -7.9 Below low normal -2.0-2.0 (mmol/L) Final Hemoglobin [Mass/volume] in Blood by Oximetry 01/08/2023 16:29:51 9.4 Below low normal 12.0-15.3 (g/dL) Final Oxyhemoglobin, Arterial (FO2HB) 01/08/2023 16:29:51 95.4 94.0-99.0 (% total Hgb) Final Carboxyhemoglobin 01/08/2023 16:29:51 1.0 <=1.5 (% total Hgb) Final Smokers: 0-9.0 % Methemoglobin 01/08/2023 16:29:51 0.7 <=1.5 (% total Hgb) Final Deoxyhemoglobin/Hemog lobin.total in Arterial blood 01/08/2023 16:29:51 2.9 0.0-5.0 (% total Hgb) Final Oxygen content in Arterial blood 01/08/2023 16:29:51 12.8 Below low normal 15.0-24.0 (%vol) Final Oxygen/Total gas setting [Volume Fraction] Ventilator 01/08/2023 16:29:51 50 (%) Final O2 FLOW, ARTERIAL - [facility] 01/08/2023 16:29:51 Not Provided (L/min) Final Bicarbonate, Venous, POC (i-STAT) 01/08/2023 16:29:51 17.7 Below low normal 23.0-31.0 (mmol/L) Final Performing Location [facility] [place] - [address] [facility] [address]
--- OUTSIDE RECORDS SUMMARY | 2023-03-09 14:41 | External Medical Summary ---
Author Name Unknown Address Unknown Organization K01:[facility] - [address] [place] [address] Laboratory Report Ordering Provider Test Date Status DEBBIE LEHMAN 01/08/2023 16:36:23 Final Observation Date Value Abnormality Reference (Units ) Status Phosphate 01/08/2023 16:36:23 3.6 2.5-4.8 (m g/dL) Final Performing Location [facility] - [address] [place] [address]
--- OUTSIDE RECORDS SUMMARY | 2023-03-09 14:41 | External Medical Summary ---
Author Name Unknown Address Unknown Organization K01:[facility] [place] - [address] [place] [address] Laboratory Report Ordering Provider Test Date Status CHARLENE CONTRERAS 01/08/2023 10:01:01 Final CRRT Labs: Check at initiati on of CRRT, One hour after CRRT and Every 6 hours
Labs to be Drawn Peripherally
Send in a separate tube. Observation Date Value Abnormality Reference (Units ) Status Calcium.ionized [Moles/volume] in Blood by Ion-selective membrane electrode (ISE) 01/08/2023 10:01:01 1.04 Below low normal 1.13-1.32 (mmol/L) Final Performing Location [facility] [place] - [address] [place] [address]
--- OUTSIDE RECORDS SUMMARY | 2023-03-09 14:41 | External Medical Summary ---
Author Name Unknown Address Unknown Organization K01:LABORATORY [facility] [place] - [address] [place] [address] Laboratory Report Ordering Provider Test Date Status RAGHU OWEN 01/08/2023 14:16:23 Final Observation Date Value Abnormality Reference (Units ) Status Lactic Acid 01/08/2023 14:16:23 1.4 0.4-2.0 (mmol/L) Final Performing Location [facility] - [address] [place] [address]
--- OUTSIDE RECORDS SUMMARY | 2023-03-09 14:41 | External Medical Summary ---
Author Name Unknown Address Unknown Organization K01:[facility] [place] - [address] [place] [address] Laboratory Report Ordering Provider Test Date Status DEBBIE LEHMAN 01/08/2023 10:01:01 Final Observation Date Value Abnormality Reference (Units ) Status BUN 01/08/2023 10:01:01 14 6-20 (mg/dL) Final Creatinine 01/08/2023 10:01:01 2.0 Above high normal 0.5-1.0 (mg/dL) Final Glomerular filtration rate/1.73 sq M.predicted [Volume Rate/Area] in Serum, Plasma or Blood by Creatinine-based formula (CKD-EPI) 01/08/2023 10:01:01 28 Below low normal >=60 (mL/min) Final eGFR is calculated based on the CKD-EPI 2020 equation SODIUM 01/08/2023 10:01:01 133 Below low normal 135 -146 (mmol/L) Final Potassium 01/08/2023 10:01:01 3.5 3.5-5.1 (m mol/L) Final Cl 01/08/2023 10:01:01 97 Below low normal 98- 107 (mmol/L) Final CO2 01/08/2023 10:01:01 18 Below low normal 22- 32 (mmol/L) Final Anion gap 01/08/2023 10:01:01 18 Above high normal 7- 15 (mmol/L) Final Glucose 01/08/2023 10:01:01 142 Above high normal 70 -120 (mg/dL) Final Calcium 01/08/2023 10:01:01 8.5 8.4-10.2 ( mg/dL) Final Performing Location [facility]ORY [facility] [place] - [address] [place] [address]
--- OUTSIDE RECORDS SUMMARY | 2023-03-09 14:41 | External Medical Summary | Summary of Care ---
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 Respiratory failure, nmzof-gw-msivdqb Unresponsive episode 04/11/2013 S/P mitral valve repair [...] Heart block 02/04/2013 02/12/2018 [employer] Other*[id number] 201205/16/2016 Overview: Study Title: Genomic Markers for Patients with Cardiovascular Disease Project # [id number] Cpr Instructor: Eduarda Mcgrath MD [phone] S/P tricuspid valve replacement 01/13/2013 01/27/2013 S/P [...] mRNA, LNP-s, No Pre serve, 2-Dose Series ([employer]) 07/28/2020,07/07/2020 COVID-19, LNP-s, No Preserve , Kuldip-sucrose, [...] Studies Cardiology [facility] [address] [place] [address] 02/02/2023 Office Visit Cardiology Mila Gonsalves PA-C [address] [place] [address] Health Maintenance Due Date Last Done Comments [...] this encounter Medical Devices Implanted Type Area Urban Designer Device Identifier Shelf Expiration Date Model / Serial / Lot Ring Tricuspid 28mm - [id number] Implanted:Qty: 1 on 12/27/2012 at [facility] Right: Heart [employer] ARIEL 04/17/2017 [id number] / [id number] / [id number] documented as of this encounter Procedures Procedure [...] interpreted or resulted by a [facility] or [employer] contracted radiologist. Mallika Sanderson MD RADIOLOGY (RA [...] the patient have Health Care Power of Beer Coil Cleaner? No Care Teams Rehabilitation Technician Relationship Specialty Start Date End Date Mallika Sanderson MD [address] [place] [address] PCP - General Internal Medicine 12/08/22 documented as of this encounter
--- OUTSIDE RECORDS SUMMARY | 2023-03-09 14:42 | External Medical Summary ---
Author Name Unknown Address Unknown Organization K01:[facility] - [address] [place] [address] Laboratory Report Ordering Provider Test Date Status DEBBIE LEHMAN 01/07/2023 22:28:08 Final Observation Date Value Abnormality Reference (Units ) Status Phosphate 01/07/2023 22:28:08 3.6 2.5-4.8 (m g/dL) Final Performing Location [facility] [place] [address] [place] [address]
--- OUTSIDE RECORDS SUMMARY | 2023-03-09 14:42 | External Medical Summary ---
Author Name Unknown Address Unknown Organization K01:[facility] [place] [place] - [facility] [address] [place] [address] Laboratory Report Ordering Provider Test Date Status CHARLENE CONTRERAS 01/08/2023 04:09:37 Final CRRT Labs: check once daily if not done already
Labs to be Drawn Peripherally

Anticoagulation may affect testing. Refer to [facility] Test Catalog for a list of effects. Observation Date Value Abnormality Reference (Units ) Status aPTT panel - Platelet poor plasma 01/08/2023 04:09:37 32 21-38 (seconds) Final Performing Location LAB[facility] [place] [place] - [facility] [address] [facility] [address]
--- OUTSIDE RECORDS SUMMARY | 2023-03-09 14:42 | External Medical Summary ---
Author Name Unknown Address Unknown Organization K01:[facility] [place] - [facility] [address] [place] [address] Laboratory Report Ordering Provider Test Date Status CHARLENE CONTRERAS 01/08/2023 04:09:37 Final CRRT Labs: check once daily if not done already
Labs to be Drawn Peripherally Observation Date Value Abnormality Reference (Units ) Status Albumin 01/08/2023 04:09:37 3.3 Below low normal 3.8-5.0 (g/dL) Final AST (Aspartate aminotransferase) 01/08/2023 04:09:37 15 10-35 (U/L) Final Alk Phos 01/08/2023 04:09:37 150 Above high normal 35-130 (U/L) Final ALT (Alanine aminotransferase) 01/08/2023 04:09:37 <5 Below low normal 10-35 (U/L) Final Bilirubin, Total 01/08/2023 04:09:37 0.3 <=1.2 (mg/dL) Final Bilirubin, Direct 01/08/2023 04:09:37 <0.2 0.0-0.3 (mg/dL) Final Protein 01/08/2023 04:09:37 5.9 Below low normal 6.0-8.3 (g/dL) Final Performing Location [facility] [place] - [facility] [address] [place] [address]
--- OUTSIDE RECORDS SUMMARY | 2023-03-09 14:42 | External Medical Summary ---
Author Name Unknown Address Unknown Organization K01:[facility] - [address] [place] [address] Laboratory Report Ordering Provider Test Date Status DEBBIE LEHMAN 01/08/2023 04:09:37 Final Observation Date Value Abnormality Reference (Units ) Status Magnesium 01/08/2023 04:09:37 1.7 1.5-2.6 (m g/dL) Final Performing Location [facility] - [address] [place] [address]
--- OUTSIDE RECORDS SUMMARY | 2023-03-09 14:42 | External Medical Summary ---
Author Name Unknown Address Unknown Organization K01:[facility] [place] [address] [place] [address] Laboratory Report Ordering Provider Test Date Status EVERETTKHRIS 01/08/2023 04:09:37 Final Observation Date Value Abnormality Reference (Units ) Status HbA1C 01/08/2023 04:09:37 4.8 4.0-5.6 (% ) Final The use of HbA1c to monitor glycemic status is based on normal hemoglobin and HbA composition. This test should not be used in patients with abnormal hemoglobin that affects the half life of the red blood cell or the in vivo glycation rates. Glucose, estimated average 01/08/2023 04:09:37 91 <126 (mg/dL) Final Performing Location [facility] [place] [address] [facility] [address]
--- OUTSIDE RECORDS SUMMARY | 2023-03-09 14:42 | External Medical Summary ---
Author Name Unknown Address Unknown Organization K01:[facility] - [address] [place] [address] Laboratory Report Ordering Provider Test Date Status DEBBIE LEHMAN 01/08/2023 10:01:01 Final Observation Date Value Abnormality Reference (Units ) Status Phosphate 01/08/2023 10:01:01 3.9 2.5-4.8 (m g/dL) Final Performing Location [facility] - [address] [place] [address]
--- OUTSIDE RECORDS SUMMARY | 2023-03-09 14:42 | External Medical Summary ---
Author Name Unknown Address Unknown Organization K01:[facility] - [address] [place] [address] Laboratory Report Ordering Provider Test Date Status DEBBIE LEHMAN 01/07/2023 22:28:08 Final Observation Date Value Abnormality Reference (Units ) Status Magnesium 01/07/2023 22:28:08 1.9 1.5-2.6 (m g/dL) Final Performing Location [facility] - [address] [place] [address]
--- OUTSIDE RECORDS SUMMARY | 2023-03-09 14:42 | External Medical Summary ---
Author Name Unknown Address Unknown Organization K01:[facility] - [address] [place] [address] Laboratory Report Ordering Provider Test Date Status DEBBIE LEHMAN 01/08/2023 04:09:37 Final Observation Date Value Abnormality Reference (Units ) Status Phosphate 01/08/2023 04:09:37 3.7 2.5-4.8 (m g/dL) Final Performing Location [facility] - [address] [place] [address]
--- OUTSIDE RECORDS SUMMARY | 2023-03-09 14:42 | External Medical Summary ---
Author Name Unknown Address Unknown Organization K01:LABORATORY [facility] [place] - [address] [place] [address] Laboratory Report Ordering Provider Test Date Status LAURIE FLOYDBetzaida 01/08/2023 04:09:37 Final Observation Date Value Abnormality Reference (Units ) Status Lactic Acid, Whole Blood 01/08/2023 04:09:37 1.6 0.4-2.0 (mmol/L) Final Performing Location LABORATORY [facility] [place] - [address] [place] [address]
--- OUTSIDE RECORDS SUMMARY | 2023-03-09 14:42 | External Medical Summary ---
Author Name Unknown Address Unknown Organization K01:LABOR[facility]ORY [facility] [place] - [address] [place] [address] Laboratory Report Ordering Provider Test Date Status CHARLENE CONTRERAS 01/08/2023 10:01:01 Final Post Filter Ionized Calcium Observation Date Value Abnormality Reference (Units ) Status Calcium.ionized [Moles/volume] in Blood drawn from CRRT circuit 01/08/2023 10:01:01 0.34 0.25-0.50 (mmol/L) Final Performing Location LAB[facility] [place] - [address] [place] [address]
--- OUTSIDE RECORDS SUMMARY | 2023-03-09 14:42 | External Medical Summary ---
Author Name Unknown Address Unknown Organization K01:[facility] - [address] [place] [address] Laboratory Report Ordering Provider Test Date Status DEBBIE LEHMAN 01/07/2023 16:01:05 Final Observation Date Value Abnormality Reference (Units ) Status Phosphate 01/07/2023 16:01:05 3.7 2.5-4.8 (m g/dL) Final Performing Location [facility] - [address] [place] [address]
--- OUTSIDE RECORDS SUMMARY | 2023-03-09 14:42 | External Medical Summary ---
Author Name Unknown Address Unknown Organization K01:[place] [facility] [place] [address] [place] [address] Laboratory Report Ordering Provider Test Date Status CHARLENE CONTRERAS 01/07/2023 22:28:08 Final CRRT Labs: Check at initiati on of CRRT, One hour after CRRT and Every 6 hours
Labs to be Drawn Peripherally
Send in a separate tube. Observation Date Value Abnormality Reference (Units ) Status Calcium.ionized [Moles/volume] in Blood by Ion-selective membrane electrode (ISE) 01/07/2023 22:28:08 0.93 Below low normal 1.13-1.32 (mmol/L) Final Performing Location [facility] [place] [address] [place] [address]
--- OUTSIDE RECORDS SUMMARY | 2023-03-09 14:42 | External Medical Summary ---
Author Name Unknown Address Unknown Organization K01:[facility] [place] [address] [place] [address] Laboratory Report Ordering Provider Test Date Status CHARLENE CONTRERAS 01/08/2023 04:09:37 Final CRRT Labs: check once daily if not done already
Labs to be Drawn Peripherally Observation Date Value Abnormality Reference (Units ) Status SYNC LEUKOCYTES IN BLOOD BY AUTOMATED COUNT 01/08/2023 04:09:37 15.14 Above high normal 4.00-10.80 (K/uL) Final Segs 01/08/2023 04:09:37 86.2 Above high normal 40.0-75.0 (%) Final Lymphs % 01/08/2023 04:09:37 5.0 Below low normal 18.0-42.0 (%) Final Monos 01/08/2023 04:09:37 8.1 1.0-11.0 (%) Final Eosinophils 01/08/2023 04:09:37 0.0 0.0-6.0 (%) Final Basos 01/08/2023 04:09:37 0.1 0.0-2.0 (%) Final Immature Granulocyte, Percent 01/08/2023 04:09:37 0.6 0.0-2.0 (%) Final Absolute Segs 01/08/2023 04:09:37 13.07 Above high normal 1.80-7.70 (K/uL) Final Lymphs, absolute 01/08/2023 04:09:37 0.75 Below low normal 1.00-4.80 (K/ul) Final Monos, Abs 01/08/2023 04:09:37 1.22 Above high normal 0.00-1.10 (K/uL) Final Eos, Abs 01/08/2023 04:09:37 0.00 0.00-0.70 (K/uL) Final Basos, Abs 01/08/2023 04:09:37 0.01 0.00-0.20 (K/uL) Final Immature Granulocytes, Number 01/08/2023 04:09:37 0.09 0.00-0.20 (K/uL) Final Performing Location [facility] [place] [facility] [address] [facility] [address]
--- OUTSIDE RECORDS SUMMARY | 2023-03-09 14:42 | External Medical Summary ---
Author Name Unknown Address Unknown Organization : Laboratory Report Ordering Provider Test Date Status SERA LESLIE 01/08/2023 00:05:14 Final Observation Date Value Abnormality Reference (Units ) Status Glucose Point of Care 01/08/2023 00:05:14 141 Above high normal 70-120 (mg/dL) Final Performing Location
--- OUTSIDE RECORDS SUMMARY | 2023-03-09 14:42 | External Medical Summary ---
Author Name Unknown Address Unknown Organization K01:[facility]ATORY [facility] [place] - [facility] [place] [address] [facility] [address] Laboratory Report Ordering Provider Test Date Status DEBBIE LEHMAN 01/08/2023 04:09:37 Final Observation Date Value Abnormality Reference (Units ) Status BUN 01/08/2023 04:09:37 15 6-20 (mg/dL) Final Creatinine 01/08/2023 04:09:37 2.3 Above high normal 0.5-1.0 (mg/dL) Final Glomerular filtration rate/1.73 sq M.predicted [Volume Rate/Area] in Serum, Plasma or Blood by Creatinine-based formula (CKD-EPI) 01/08/2023 04:09:37 25 Below low normal >=60 (mL/min) Final eGFR is calculated based on the CKD-EPI 2020 equation SODIUM 01/08/2023 04:09:37 133 Below low normal 135 -146 (mmol/L) Final Potassium 01/08/2023 04:09:37 3.8 3.5-5.1 (m mol/L) Final Cl 01/08/2023 04:09:37 98 98-107 (mm ol/L) Final CO2 01/08/2023 04:09:37 19 Below low normal 22- 32 (mmol/L) Final Anion gap 01/08/2023 04:09:37 16 Above high normal 7- 15 (mmol/L) Final Glucose 01/08/2023 04:09:37 133 Above high normal 70 -120 (mg/dL) Final Calcium 01/08/2023 04:09:37 8.8 8.4-10.2 ( mg/dL) Final Performing Location LABORATORY [facility] [place] - [address] [place] [address]
--- OUTSIDE RECORDS SUMMARY | 2023-03-09 14:42 | External Medical Summary ---
Author Name Unknown Address Unknown Organization K01:LABORATORY [facility] [place] - [address] [place] [address] Laboratory Report Ordering Provider Test Date Status CHARLENE CONTRERAS 01/07/2023 22:28:08 Final Post Filter Ionized Calcium Observation Date Value Abnormality Reference (Units ) Status Calcium.ionized [Moles/volume] in Blood drawn from CRRT circuit 01/07/2023 22:28:08 0.43 0.25-0.50 (mmol/L) Final Performing Location LABORATORY [facility] [place] - [address] [place] [address]
--- OUTSIDE RECORDS SUMMARY | 2023-03-09 14:42 | External Medical Summary ---
Author Name Unknown Address Unknown Organization K01:LABORATORY [facility] - [address] [place] [address] Laboratory Report Ordering Provider Test Date Status DEBBIE LEHMAN 01/08/2023 10:01:01 Final Observation Date Value Abnormality Reference (Units ) Status Magnesium 01/08/2023 10:01:01 1.6 1.5-2.6 (m g/dL) Final Performing Location LABORATORY [facility] - [address] [place] [address]
--- OUTSIDE RECORDS SUMMARY | 2023-03-09 14:42 | External Medical Summary ---
Author Name Unknown Address Unknown Organization K01:LABORATORY [facility] [place] - [address] [place] [address] Laboratory Report Ordering Provider Test Date Status CHARLENE CONTRERAS 01/08/2023 04:09:37 Final CRRT Labs: check once daily if not done already
Labs to be Drawn Peripherally Observation Date Value Abnormality Reference (Units ) Status WBC, Total 01/08/2023 04:09:37 15.14 Above high normal 4.00-10.80 (K/uL) Final RBC 01/08/2023 04:09:37 3.33 3.85-5.15 (M/uL) Final Hemoglobin 01/08/2023 04:09:37 9.7 Below low normal 12.0-15.3 (g/dL) Final HCT 01/08/2023 04:09:37 32.3 Below low normal 36.0-45.2 (%) Final MCV 01/08/2023 04:09:37 97.0 81.5-97.5 (fL) Final MCH 01/08/2023 04:09:37 29.1 27.0-34.0 (pg) Final MCHC 01/08/2023 04:09:37 30.0 32.0-36.0 (g/dL) Final RDW 01/08/2023 04:09:37 17.2 11.5-15.5 (%) Final Platelets 01/08/2023 04:09:37 132 Below low normal 140-400 (K/uL) Final MPV 01/08/2023 04:09:37 10.1 6.6-11.1 (fL) Final Nucleated erythrocytes/100 leukocytes [Ratio] in Blood by Automated count 01/08/2023 04:09:37 0 <=0 (/100 WBCs) Final Performing Location LABORATORY [facility] [place] - [address] [address]
--- OUTSIDE RECORDS SUMMARY | 2023-03-09 14:42 | External Medical Summary ---
Author Name Unknown Address Unknown Organization K01:LABORATORY [facility] [place] - [address] [place] [address] Laboratory Report Ordering Provider Test Date Status CHARLENE CONTRERAS 01/08/2023 04:09:37 Final CRRT Labs: Check at initiati on of CRRT, One hour after CRRT and Every 6 hours
Labs to be Drawn Peripherally
Send in a separate tube. Observation Date Value Abnormality Reference (Units ) Status Calcium.ionized [Moles/volume] in Blood by Ion-selective membrane electrode (ISE) 01/08/2023 04:09:37 1.01 Below low normal 1.13-1.32 (mmol/L) Final Performing Location LABORATORY [facility] [place] - [address] [place] [address]
--- OUTSIDE RECORDS SUMMARY | 2023-03-09 14:42 | External Medical Summary ---
Author Name Unknown Address Unknown Organization K01:[facility]ORY [facility] [place] - [facility] [address] [facility] [address] Laboratory Report Ordering Provider Test Date Status CHARLENE CONTRERAS 01/08/2023 04:09:37 Final CRRT Labs: check once daily if not done already
Labs to be Drawn Peripherally

Warfarin Therapy
INR: 2.0-3.0 conventional anticoagulation
INR: 2.5-3.5 high intensity anticoagulation Observation Date Value Abnormality Reference (Units ) Status PT 01/08/2023 04:09:37 15.8 Above high normal 11 .6-15.2 (seconds) Final INR 01/08/2023 04:09:37 1.2 0.8-1.2 Final Performing Location [facility]ORY [facility] [place] - [address] [facility] [address]
--- OUTSIDE RECORDS SUMMARY | 2023-03-09 14:42 | External Medical Summary ---
Author Name Unknown Address Unknown Organization : Laboratory Report Ordering Provider Test Date Status SERA LESLIE 01/07/2023 19:01:12 Final Observation Date Value Abnormality Reference (Units ) Status Glucose Point of Care 01/07/2023 19:01:12 141 Above high normal 70-120 (mg/dL) Final Performing Location
--- OUTSIDE RECORDS SUMMARY | 2023-03-09 14:43 | External Medical Summary ---
Author Name Unknown Address Unknown Organization K01:[place]ORY [facility] [place] - [address] [place] [address] Laboratory Report Ordering Provider Test Date Status DEBBIE LEHMAN 01/07/2023 05:04:19 Final Observation Date Value Abnormality Reference (Units ) Status Lactic Acid 01/07/2023 05:04:19 3.7 Above high normal 0.4-2.0 (mmol/L) Final Performing Location LAB[facility]ORY [facility] [place] - [address] [place] [address]
--- OUTSIDE RECORDS SUMMARY | 2023-03-09 14:43 | External Medical Summary ---
Author Name Unknown Address Unknown Organization K01:LABORATORY [facility] - [address] [facility] [address] Laboratory Report Ordering Provider Test Date Status DEBBIE LEHMAN 01/06/2023 16:30:35 Final Observation Date Value Abnormality Reference (Units ) Status BUN 01/06/2023 16:30:35 39 Above high normal 6-20 (mg/dL) Final Creatinine 01/06/2023 16:30:35 6.2 Above high normal 0.5-1.0 (mg/dL) Final Glomerular filtration rate/1.73 sq M.predicted [Volume Rate/Area] in Serum, Plasma or Blood by Creatinine-based formula (CKD-EPI) 01/06/2023 16:30:35 7 Below low normal >=60 (mL/min) Final eGFR is calculated based on the CKD-EPI 2020 equation SODIUM 01/06/2023 16:30:35 136 135-146 (m mol/L) Final Potassium 01/06/2023 16:30:35 5.6 Above high normal 3. 5-5.1 (mmol/L) Final Cl 01/06/2023 16:30:35 102 98-107 (mm ol/L) Final CO2 01/06/2023 16:30:35 19 Below low normal 22- 32 (mmol/L) Final Anion gap 01/06/2023 16:30:35 15 7-15 (mmol /L) Final Glucose 01/06/2023 16:30:35 131 Above high normal 70 -120 (mg/dL) Final Calcium 01/06/2023 16:30:35 8.0 Below low normal 8.4 -10.2 (mg/dL) Final Performing Location LABORATORY [facility] - [address] [place] [address]
--- OUTSIDE RECORDS SUMMARY | 2023-03-09 14:43 | External Medical Summary ---
Author Name Unknown Address Unknown Organization K01:[facility] [place] [address] [place] [address] Laboratory Report Ordering Provider Test Date Status CHARLENE CONTRERAS 01/07/2023 10:00:11 Final Post Filter Ionized Calcium Observation Date Value Abnormality Reference (Units ) Status Calcium.ionized [Moles/volume] in Blood drawn from CRRT circuit 01/07/2023 10:00:11 0.51 Above high normal 0.25-0.50 (mmol/L) Final Performing Location [facility] [place] [address] [place] [address]
--- OUTSIDE RECORDS SUMMARY | 2023-03-09 14:43 | External Medical Summary ---
Author Name Unknown Address Unknown Organization K01:LABORATORY [facility] - [address] [place] [address] Laboratory Report Ordering Provider Test Date Status DEBBIE LEHMAN 01/06/2023 16:30:35 Final Observation Date Value Abnormality Reference (Units ) Status Phosphate 01/06/2023 16:30:35 4.2 2.5-4.8 (m g/dL) Final Performing Location LABORATORY [facility] - [address] [place] [address]
--- OUTSIDE RECORDS SUMMARY | 2023-03-09 14:43 | External Medical Summary ---
Author Name Unknown Address Unknown Organization K01:[place] [facility] [place] [address] [place] [address] Laboratory Report Ordering Provider Test Date Status CHARLENE CONTRERAS 01/07/2023 05:04:19 Final CRRT Labs: Check at initiati on of CRRT, One hour after CRRT and Every 6 hours
Labs to be Drawn Peripherally
Send in a separate tube. Observation Date Value Abnormality Reference (Units ) Status Calcium.ionized [Moles/volume] in Blood by Ion-selective membrane electrode (ISE) 01/07/2023 05:04:19 0.97 Below low normal 1.13-1.32 (mmol/L) Final Performing Location [facility] [place] [address] [place] [address]
--- OUTSIDE RECORDS SUMMARY | 2023-03-09 14:43 | External Medical Summary ---
Author Name Unknown Address Unknown Organization K01:[place] [facility] [place] [address] [place] [address] Laboratory Report Ordering Provider Test Date Status CHARLENE CONTRERAS 01/07/2023 11:41:02 Final Post Filter Ionized Calcium Observation Date Value Abnormality Reference (Units ) Status Calcium.ionized [Moles/volume] in Blood drawn from CRRT circuit 01/07/2023 11:41:02 0.44 0.25-0.50 (mmol/L) Final Performing Location [facility] [facility] [place] [address] [place] [address]
--- OUTSIDE RECORDS SUMMARY | 2023-03-09 14:43 | External Medical Summary ---
Author Name Unknown Address Unknown Organization K01:LABORATORY [facility] [place] - [address] [place] [address] Laboratory Report Ordering Provider Test Date Status CHARLENE CONTRERAS 01/07/2023 16:01:05 Final CRRT Labs: Check at initiati on of CRRT, One hour after CRRT and Every 6 hours
Labs to be Drawn Peripherally
Send in a separate tube. Observation Date Value Abnormality Reference (Units ) Status Calcium.ionized [Moles/volume] in Blood by Ion-selective membrane electrode (ISE) 01/07/2023 16:01:05 0.87 Below low normal 1.13-1.32 (mmol/L) Final Performing Location LABORATORY [facility] [place] - [address] [place] [address]
--- OUTSIDE RECORDS SUMMARY | 2023-03-09 14:43 | External Medical Summary ---
Author Name Unknown Address Unknown Organization K01:LABORATORY [facility] - [address] [place] [address] Laboratory Report Ordering Provider Test Date Status DEBBIE LEHMAN 01/06/2023 23:23:25 Final Observation Date Value Abnormality Reference (Units ) Status Magnesium 01/06/2023 23:23:25 1.9 1.5-2.6 (m g/dL) Final Performing Location LABORATORY [facility] - [address] [place] [address]
--- OUTSIDE RECORDS SUMMARY | 2023-03-09 14:43 | External Medical Summary ---
Author Name Unknown Address Unknown Organization K01:LABORATORY [facility] [place] - [facility] [address] [place] [address] Laboratory Report Ordering Provider Test Date Status DEBBIE LEHMAN 01/07/2023 05:04:19 Final Observation Date Value Abnormality Reference (Units ) Status BUN 01/07/2023 05:04:19 30 Above high normal 6-20 (mg/dL) Final Creatinine 01/07/2023 05:04:19 4.8 Above high normal 0.5-1.0 (mg/dL) Final Glomerular filtration rate/1.73 sq M.predicted [Volume Rate/Area] in Serum, Plasma or Blood by Creatinine-based formula (CKD-EPI) 01/07/2023 05:04:19 10 Below low normal >=60 (mL/min) Final eGFR is calculated based on the CKD-EPI 2020 equation SODIUM 01/07/2023 05:04:19 134 Below low normal 135 -146 (mmol/L) Final Potassium 01/07/2023 05:04:19 4.7 3.5-5.1 (m mol/L) Final Cl 01/07/2023 05:04:19 98 98-107 (mm ol/L) Final CO2 01/07/2023 05:04:19 17 Below low normal 22- 32 (mmol/L) Final Anion gap 01/07/2023 05:04:19 19 Above high normal 7- 15 (mmol/L) Final Glucose 01/07/2023 05:04:19 131 Above high normal 70 -120 (mg/dL) Final Calcium 01/07/2023 05:04:19 8.1 Below low normal 8.4 -10.2 (mg/dL) Final Performing Location LABORATORY [facility] [place] - [facility] [address] [place] [address]
--- OUTSIDE RECORDS SUMMARY | 2023-03-09 14:43 | External Medical Summary ---
Author Name Unknown Address Unknown Organization K01:LABORATORY [facility] [place] - [address] [facility] [place] [address] Laboratory Report Ordering Provider Test Date Status DEBBIE LEHMAN 01/06/2023 17:03:04 Final Observation Date Value Abnormality Reference (Units ) Status Body temperature 01/06/2023 17:03:04 37.0 (C) Final pH of Arterial blood 01/06/2023 17:03:04 7.314 Below low normal 7.350-7.450 (units) Final Carbon dioxide [Partial pressure] in Arterial blood 01/06/2023 17:03:04 42.5 35.0-45.0 (mmHg) Final Oxygen [Partial pressure] in Arterial blood 01/06/2023 17:03:04 90.2 75.0-100.0 (mmHg) Final Base excess, Arterial 01/06/2023 17:03:04 -4.5 Below low normal -2.0-2.0 (mmol/L) Final Hemoglobin [Mass/volume] in Blood by Oximetry 01/06/2023 17:03:04 11.4 Below low normal 12.0-15.3 (g/dL) Final Oxyhemoglobin, Arterial (FO2HB) 01/06/2023 17:03:04 94.6 94.0-99.0 (% total Hgb) Final Carboxyhemoglobin 01/06/2023 17:03:04 0.9 <=1.5 (% total Hgb) Final Smokers: 0-9.0 % Methemoglobin 01/06/2023 17:03:04 0.8 <=1.5 (% total Hgb) Final Deoxyhemoglobin/Hemog lobin.total in Arterial blood 01/06/2023 17:03:04 3.7 0.0-5.0 (% total Hgb) Final Oxygen content in Arterial blood 01/06/2023 17:03:04 15.3 15.0-24.0 (%vol) Final Oxygen/Total gas setting [Volume Fraction] Ventilator 01/06/2023 17:03:04 70 (%) Final O2 FLOW, [facility] - [facility] 01/06/2023 17:03:04 Not Provided (L/min) Final Bicarbonate, Venous, POC (i-STAT) 01/06/2023 17:03:04 20.9 Below low normal 23.0-31.0 (mmol/L) Final Performing Location LABORATORY [facility] [place] - [address] [facility] [address]
--- OUTSIDE RECORDS SUMMARY | 2023-03-09 14:43 | External Medical Summary ---
Author Name Unknown Address Unknown Organization K01:LABORATORY [facility] [place] - [address] [place] [address] Laboratory Report Ordering Provider Test Date Status CHARLENE CONTRERAS 01/06/2023 20:18:09 Final CRRT Labs: Check at initiati on of CRRT, One hour after CRRT and Every 6 hours
Labs to be Drawn Peripherally
Send in a separate tube. Observation Date Value Abnormality Reference (Units ) Status Calcium.ionized [Moles/volume] in Blood by Ion-selective membrane electrode (ISE) 01/06/2023 20:18:09 1.06 Below low normal 1.13-1.32 (mmol/L) Final Performing Location LABORATORY [facility] [place] - [address] [place] [address]
--- OUTSIDE RECORDS SUMMARY | 2023-03-09 14:43 | External Medical Summary ---
Author Name Unknown Address Unknown Organization K01:[place] [facility] [place] [facility] [place] [address] [place] [address] Laboratory Report Ordering Provider Test Date Status DEBBIE LEHMAN 01/06/2023 23:23:25 Final Observation Date Value Abnormality Reference (Units ) Status BUN 01/06/2023 23:23:25 36 Above high normal 6-20 (mg/dL) Final Creatinine 01/06/2023 23:23:25 5.8 Above high normal 0.5-1.0 (mg/dL) Final Glomerular filtration rate/1.73 sq M.predicted [Volume Rate/Area] in Serum, Plasma or Blood by Creatinine-based formula (CKD-EPI) 01/06/2023 23:23:25 8 Below low normal >=60 (mL/min) Final eGFR is calculated based on the CKD-EPI 2020 equation SODIUM 01/06/2023 23:23:25 135 135-146 (m mol/L) Final Potassium 01/06/2023 23:23:25 5.2 Above high normal 3. 5-5.1 (mmol/L) Final Cl 01/06/2023 23:23:25 99 98-107 (mm ol/L) Final CO2 01/06/2023 23:23:25 18 Below low normal 22- 32 (mmol/L) Final Anion gap 01/06/2023 23:23:25 18 Above high normal 7- 15 (mmol/L) Final Glucose 01/06/2023 23:23:25 170 Above high normal 70 -120 (mg/dL) Final Calcium 01/06/2023 23:23:25 7.8 Below low normal 8.4 -10.2 (mg/dL) Final Performing Location [place] [facility] [place] [facility] [place] [address] [place] [address]
--- OUTSIDE RECORDS SUMMARY | 2023-03-09 14:43 | External Medical Summary ---
Author Name Unknown Address Unknown Organization K01:[place] [facility] [place] [address] [facility] [place] [address] Laboratory Report Ordering Provider Test Date Status DEBBIE LEHMAN 01/07/2023 16:01:22 Final Observation Date Value Abnormality Reference (Units ) Status Body temperature 01/07/2023 16:01:22 37.0 (C) Final pH of Arterial blood 01/07/2023 16:01:22 7.378 7.350-7.450 (units) Final Carbon dioxide [Partial pressure] in Arterial blood 01/07/2023 16:01:22 36.1 35.0-45.0 (mmHg) Final Oxygen [Partial pressure] in Arterial blood 01/07/2023 16:01:22 126.0 Above high normal 75.0-100.0 (mmHg) Final Base excess, Arterial 01/07/2023 16:01:22 -3.4 Below low normal -2.0-2.0 (mmol/L) Final Hemoglobin [Mass/volume] in Blood by Oximetry 01/07/2023 16:01:22 10.5 Below low normal 12.0-15.3 (g/dL) Final Oxyhemoglobin, Arterial (FO2HB) 01/07/2023 16:01:22 97.0 94.0-99.0 (% total Hgb) Final Carboxyhemoglobin 01/07/2023 16:01:22 1.0 <=1.5 (% total Hgb) Final Smokers: 0-9.0 % Methemoglobin 01/07/2023 16:01:22 0.6 <=1.5 (% total Hgb) Final Deoxyhemoglobin/Hemog lobin.total in Arterial blood 01/07/2023 16:01:22 1.4 0.0-5.0 (% total Hgb) Final Oxygen content in Arterial blood 01/07/2023 16:01:22 14.6 Below low normal 15.0-24.0 (%vol) Final Oxygen/Total gas setting [Volume Fraction] Ventilator 01/07/2023 16:01:22 60 (%) Final O2 FLOW, [facility]ERIAL - [facility] 01/07/2023 16:01:22 Not Provided (L/min) Final Bicarbonate, Venous, POC (i-STAT) 01/07/2023 16:01:22 20.8 Below low normal 23.0-31.0 (mmol/L) Final Performing Location [place] [facility] [place] [address] [facility] [address]
--- OUTSIDE RECORDS SUMMARY | 2023-03-09 14:43 | External Medical Summary ---
Author Name Unknown Address Unknown Organization K01:[place] [facility] [place] [address] [facility] [place] [address] Laboratory Report Ordering Provider Test Date Status CHARLENE CONTRERAS 01/07/2023 13:13:32 Final Labs to be Drawn Peripherall y
Check ABG pLabs to be Drawn Peripherally
Check ABG prior to starting citrate anticoagulationrior to starting citrate anticoagulation Observation Date Value Abnormality Reference (Units ) Status Body temperature 01/07/2023 13:13:32 37.0 (C) Final pH of Arterial blood 01/07/2023 13:13:32 7.404 7.350-7.450 (units) Final Carbon dioxide [Partial pressure] in Arterial blood 01/07/2023 13:13:32 33.4 Below low normal 35.0-45.0 (mmHg) Final Oxygen [Partial pressure] in Arterial blood 01/07/2023 13:13:32 129.0 Above high normal 75.0-100.0 (mmHg) Final Base excess, Arterial 01/07/2023 13:13:32 -3.1 Below low normal -2.0-2.0 (mmol/L) Final Hemoglobin [Mass/volume] in Blood by Oximetry 01/07/2023 13:13:32 10.1 Below low normal 12.0-15.3 (g/dL) Final Oxyhemoglobin, Arterial (FO2HB) 01/07/2023 13:13:32 96.9 94.0-99.0 (% total Hgb) Final Carboxyhemoglobin 01/07/2023 13:13:32 1.0 <=1.5 (% total Hgb) Final Smokers: 0-9.0 % Methemoglobin 01/07/2023 13:13:32 0.6 <=1.5 (% total Hgb) Final Deoxyhemoglobin/Hemog lobin.total in Arterial blood 01/07/2023 13:13:32 1.5 0.0-5.0 (% total Hgb) Final Oxygen content in Arterial blood 01/07/2023 13:13:32 14.1 Below low normal 15.0-24.0 (%vol) Final Oxygen/Total gas setting [Volume Fraction] Ventilator 01/07/2023 13:13:32 70 (%) Final O2 FLOW, ARTERIAL - [facility] 01/07/2023 13:13:32 Not Provided (L/min) Final Bicarbonate, Venous, POC (i-STAT) 01/07/2023 13:13:32 20.5 Below low normal 23.0-31.0 (mmol/L) Final Performing Location LAB[facility] [place] [address] [facility] [address]
--- OUTSIDE RECORDS SUMMARY | 2023-03-09 14:43 | External Medical Summary ---
Author Name Unknown Address Unknown Organization K01:LABORATORY [facility] [place] - [address] [place] [address] Laboratory Report Ordering Provider Test Date Status DIANECHANG 01/06/2023 16:30:35 Final Observation Date Value Abnormality Reference (Units ) Status WBC, Total 01/06/2023 16:30:35 12.60 Above high normal 4.00-10.80 (K/uL) Final RBC 01/06/2023 16:30:35 3.75 3.85-5.15 (M/uL) Final Hemoglobin 01/06/2023 16:30:35 11.0 Below low normal 12.0-15.3 (g/dL) Final HCT 01/06/2023 16:30:35 36.3 36.0-45.2 (%) Final MCV 01/06/2023 16:30:35 96.8 81.5-97.5 (fL) Final MCH 01/06/2023 16:30:35 29.3 27.0-34.0 (pg) Final MCHC 01/06/2023 16:30:35 30.3 32.0-36.0 (g/dL) Final RDW 01/06/2023 16:30:35 17.3 11.5-15.5 (%) Final Platelets 01/06/2023 16:30:35 159 140-400 (K/uL) Final MPV 01/06/2023 16:30:35 10.5 6.6-11.1 (fL) Final Nucleated erythrocytes/100 leukocytes [Ratio] in Blood by Automated count 01/06/2023 16:30:35 0 <=0 (/100 WBCs) Final Performing Location LABORATORY [facility] [place] - [address] [place] [address]
--- OUTSIDE RECORDS SUMMARY | 2023-03-09 14:43 | External Medical Summary ---
Author Name Unknown Address Unknown Organization K01:LABORATORY [facility] [place] - [address] [place] [address] Laboratory Report Ordering Provider Test Date Status DEBBIE LEHMAN 01/07/2023 10:00:11 Final Observation Date Value Abnormality Reference (Units ) Status Lactic Acid 01/07/2023 10:00:11 2.1 Above high normal 0.4-2.0 (mmol/L) Final Performing Location LABORATORY [facility] [place] - [address] [place] [address]
--- OUTSIDE RECORDS SUMMARY | 2023-03-09 14:43 | External Medical Summary ---
Author Name Unknown Address Unknown Organization K01:[place] [place] [facility] [place] [address] Laboratory Report Ordering Provider Test Date Status CHARLENE CONTRERAS 01/06/2023 20:18:09 Final CRRT Labs: check once daily if not done already
Labs to be Drawn Peripherally

Warfarin Therapy
INR: 2.0-3.0 conventional anticoagulation
INR: 2.5-3.5 high intensity anticoagulation Observation Date Value Abnormality Reference (Units ) Status PT 01/06/2023 20:18:09 14.6 11.6-15.2 (seconds) Final INR 01/06/2023 20:18:09 1.1 0.8-1.2 Final Performing Location [facility] [place] [address] [place] [address]
--- OUTSIDE RECORDS SUMMARY | 2023-03-09 14:43 | External Medical Summary ---
Author Name Unknown Address Unknown Organization K01:LABORATORY [facility] [place] - [address] [place] [address] Laboratory Report Ordering Provider Test Date Status CHARLENE CONTRERAS 01/06/2023 20:18:09 Final CRRT Labs: Check at initiati on of CRRT, One hour after CRRT and Every 6 hours
Labs to be Drawn Peripherally Observation Date Value Abnormality Reference (Units ) Status Magnesium 01/06/2023 20:18:09 2.1 1.5-2.6 (m g/dL) Final Performing Location LABORATORY [facility] [place] - [address] [place] [address]
--- OUTSIDE RECORDS SUMMARY | 2023-03-09 14:43 | External Medical Summary ---
Author Name Unknown Address Unknown Organization K01:LABORATORY [facility] - [address] [place] [address] Laboratory Report Ordering Provider Test Date Status DEBBIE LEHMAN 01/07/2023 16:01:05 Final Observation Date Value Abnormality Reference (Units ) Status Magnesium 01/07/2023 16:01:05 1.5 1.5-2.6 (m g/dL) Final Performing Location LABORATORY [facility] - [address] [place] [address]
--- OUTSIDE RECORDS SUMMARY | 2023-03-09 14:43 | External Medical Summary ---
Author Name Unknown Address Unknown Organization K01:LABORATORY [facility] - [address] [place] [address] Laboratory Report Ordering Provider Test Date Status DEBBIE LEHMAN 01/06/2023 23:23:25 Final Observation Date Value Abnormality Reference (Units ) Status Phosphate 01/06/2023 23:23:25 4.3 2.5-4.8 (m g/dL) Final Performing Location LABORATORY [facility] - [address] [place] [address]
--- OUTSIDE RECORDS SUMMARY | 2023-03-09 14:43 | External Medical Summary ---
Author Name Unknown Address Unknown Organization K01:[place] [facility] [place] [address] [place] [address] Laboratory Report Ordering Provider Test Date Status CHARLENE CONTRERAS 01/07/2023 05:04:19 Final Post Filter Ionized Calcium Observation Date Value Abnormality Reference (Units ) Status Calcium.ionized [Moles/volume] in Blood drawn from CRRT circuit 01/07/2023 05:04:19 0.45 0.25-0.50 (mmol/L) Final Performing Location [facility] [place] [address] [place] [address]
--- OUTSIDE RECORDS SUMMARY | 2023-03-09 14:43 | External Medical Summary ---
Author Name Unknown Address Unknown Organization K01:LABORATORY [facility] [place] - [facility] [place] [address] Laboratory Report Ordering Provider Test Date Status CHARLENE CONTRERAS 01/06/2023 20:18:09 Final CRRT Labs: check once daily if not done already
Labs to be Drawn Peripherally

Anticoagulation may affect testing. Refer to [facility] Test Catalog for a list of effects. Observation Date Value Abnormality Reference (Units ) Status aPTT panel - Platelet poor plasma 01/06/2023 20:18:09 35 21-38 (seconds) Final Performing Location LABORATORY [facility] [place] - [facility] [address]
--- OUTSIDE RECORDS SUMMARY | 2023-03-09 14:43 | External Medical Summary ---
Author Name Unknown Address Unknown Organization K01:LABORATORY [facility] - [address] [place] [facility] Laboratory Report Ordering Provider Test Date Status DEBBIE LEHMAN 01/06/2023 22:14:12 Final Observation Date Value Abnormality Reference (Units) Status Bacteria identified in Specimen by Culture 01/06/2023 22:14:12 Light growth normal estephania Final Gram Stain 01/06/2023 22:14:12 No purulence detected. <25 neutrophils/low power microscopic field. Final Gram Stain 01/06/2023 22:14:12 Rare Polymorphonuclear leukocytes Final Gram Stain 01/06/2023 22:14:12 No organisms seen Final Test: Culture, Respiratory, Lower, Aerobic
Specimen Source: Tracheal Aspirate
Specimen Type: Lower Respiratory
Specimen Date: 01/06/2023 10:14 PM
Result Date: 01/08/2023 7:42 AM
Result Status: Final result
Resulting Lab: LAB[facility]ORY [facility]
[address]
[place] [address]

CULTURE

Light growth normal estephania

STAIN

No purulence detected. <25 neutrophils/low power microscopic field.

Rare Polymorphonuclear leukocytes

No organisms seen

null Performing Location LABORATORY [facility] - [address] [place] [address]
--- OUTSIDE RECORDS SUMMARY | 2023-03-09 14:43 | External Medical Summary ---
Author Name Unknown Address Unknown Organization K01:LABORATORY [place] [address] [facility] [address] Laboratory Report Ordering Provider Test Date Status DEBBIE LEHMAN 01/07/2023 10:00:11 Final Observation Date Value Abnormality Reference (Units ) Status BUN 01/07/2023 10:00:11 25 Above high normal 6-20 (mg/dL) Final Creatinine 01/07/2023 10:00:11 4.0 Above high normal 0.5-1.0 (mg/dL) Final Glomerular filtration rate/1.73 sq M.predicted [Volume Rate/Area] in Serum, Plasma or Blood by Creatinine-based formula (CKD-EPI) 01/07/2023 10:00:11 13 Below low normal >=60 (mL/min) Final eGFR is calculated based on the CKD-EPI 2020 equation SODIUM 01/07/2023 10:00:11 133 Below low normal 135 -146 (mmol/L) Final Potassium 01/07/2023 10:00:11 4.1 3.5-5.1 (m mol/L) Final Cl 01/07/2023 10:00:11 96 Below low normal 98- 107 (mmol/L) Final CO2 01/07/2023 10:00:11 19 Below low normal 22- 32 (mmol/L) Final Anion gap 01/07/2023 10:00:11 18 Above high normal 7- 15 (mmol/L) Final Glucose 01/07/2023 10:00:11 140 Above high normal 70 -120 (mg/dL) Final Calcium 01/07/2023 10:00:11 8.2 Below low normal 8.4 -10.2 (mg/dL) Final Performing Location [facility] [facility] [place] [facility] [place] [address]
--- OUTSIDE RECORDS SUMMARY | 2023-03-09 14:43 | External Medical Summary ---
Author Name Unknown Address Unknown Organization K01:LABORATORY [place] - [address] [place] [id number] Laboratory Report Ordering Provider Test Date Status DEBBIE LEHMAN 01/06/2023 16:30:35 Final Observation Date Value Abnormality Reference (Units ) Status Lactic Acid 01/06/2023 16:30:35 0.8 0.4-2.0 (mmol/L) Final Performing Location LABORATORY [facility] - [address] [place] [id number]
--- OUTSIDE RECORDS SUMMARY | 2023-03-09 14:43 | External Medical Summary ---
Author Name Unknown Address Unknown Organization K01:LABORATORY [facility] - [address] [place] [address] Laboratory Report Ordering Provider Test Date Status DEBBIE LEHMAN 01/07/2023 10:00:11 Final Observation Date Value Abnormality Reference (Units ) Status Phosphate 01/07/2023 10:00:11 3.8 2.5-4.8 (m g/dL) Final Performing Location LABORATORY [facility] - [address] [place] [address]
--- OUTSIDE RECORDS SUMMARY | 2023-03-09 14:43 | External Medical Summary ---
Author Name Unknown Address Unknown Organization K01:[facility] [place] [address] [place] [address] [facility] [address] Laboratory Report Ordering Provider Test Date Status DEBBIE LEHMAN 01/07/2023 05:04:19 Final Observation Date Value Abnormality Reference (Units ) Status WBC, Total 01/07/2023 05:04:19 11.64 Above high normal 4.00-10.80 (K/uL) Final RBC 01/07/2023 05:04:19 3.43 3.85-5.15 (M/uL) Final Hemoglobin 01/07/2023 05:04:19 10.1 Below low normal 12.0-15.3 (g/dL) Final HCT 01/07/2023 05:04:19 33.6 Below low normal 36.0-45.2 (%) Final MCV 01/07/2023 05:04:19 98.0 81.5-97.5 (fL) Final MCH 01/07/2023 05:04:19 29.4 27.0-34.0 (pg) Final MCHC 01/07/2023 05:04:19 30.1 32.0-36.0 (g/dL) Final RDW 01/07/2023 05:04:19 17.2 11.5-15.5 (%) Final Platelets 01/07/2023 05:04:19 148 140-400 (K/uL) Final MPV 01/07/2023 05:04:19 9.9 6.6-11.1 (fL) Final Nucleated erythrocytes/100 leukocytes [Ratio] in Blood by Automated count 01/07/2023 05:04:19 0 <=0 (/100 WBCs) Final Performing Location [facility] [place] [address] [place] [address]
--- OUTSIDE RECORDS SUMMARY | 2023-03-09 14:43 | External Medical Summary ---
Author Name Unknown Address Unknown Organization K01:[place] [facility] [place] [address] [place] [address] Laboratory Report Ordering Provider Test Date Status CHARLENE CONTRERAS 01/06/2023 23:23:25 Final CRRT Labs: Check at initiati on of CRRT, One hour after CRRT and Every 6 hours
Labs to be Drawn Peripherally
Send in a separate tube. Observation Date Value Abnormality Reference (Units ) Status Calcium.ionized [Moles/volume] in Blood by Ion-selective membrane electrode (ISE) 01/06/2023 23:23:25 0.97 Below low normal 1.13-1.32 (mmol/L) Final Performing Location [place] [facility] [place] [address] [place] [address]
--- OUTSIDE RECORDS SUMMARY | 2023-03-09 14:43 | External Medical Summary ---
Author Name Unknown Address Unknown Organization K01:[facility] [place] [facility] [place] [address] Laboratory Report Ordering Provider Test Date Status CHARLENE CONTRERAS 01/06/2023 20:18:09 Final CRRT Labs: check once daily if not done already
Labs to be Drawn Peripherally Observation Date Value Abnormality Reference (Units ) Status Albumin 01/06/2023 20:18:09 3.1 Below low normal 3.8-5.0 (g/dL) Final AST (Aspartate aminotransferase) 01/06/2023 20:18:09 12 10-35 (U/L) Final Alk Phos 01/06/2023 20:18:09 168 Above high normal 35-130 (U/L) Final ALT (Alanine aminotransferase) 01/06/2023 20:18:09 8 Below low normal 10-35 (U/L) Final Bilirubin, Total 01/06/2023 20:18:09 0.3 <=1.2 (mg/dL) Final Bilirubin, Direct 01/06/2023 20:18:09 <0.2 0.0-0.3 (mg/dL) Final Protein 01/06/2023 20:18:09 6.0 6.0-8.3 (g/dL) Final Performing Location [facility] [place] - [facility] [place] [address]
--- OUTSIDE RECORDS SUMMARY | 2023-03-09 14:43 | External Medical Summary ---
Author Name Unknown Address Unknown Organization K01:LABORATORY [facility] [place] - [address] [place] [address] Laboratory Report Ordering Provider Test Date Status CHARLENE CONTRERAS 01/06/2023 16:31:17 Final CRRT Labs: Check at initiati on of CRRT, One hour after CRRT and Every 6 hours
Labs to be Drawn Peripherally
Send in a separate tube. Observation Date Value Abnormality Reference (Units ) Status Calcium.ionized [Moles/volume] in Blood by Ion-selective membrane electrode (ISE) 01/06/2023 16:31:17 1.07 Below low normal 1.13-1.32 (mmol/L) Final Performing Location LABORATORY [facility] [place] - [address] [place] [address]
--- OUTSIDE RECORDS SUMMARY | 2023-03-09 14:43 | External Medical Summary ---
Author Name Unknown Address Unknown Organization K01:[facility] [place] [address] [place] [address] Laboratory Report Ordering Provider Test Date Status CHARLENE CONTRERAS 01/07/2023 10:00:11 Final CRRT Labs: Check at initiati on of CRRT, One hour after CRRT and Every 6 hours
Labs to be Drawn Peripherally
Send in a separate tube. Observation Date Value Abnormality Reference (Units ) Status Calcium.ionized [Moles/volume] in Blood by Ion-selective membrane electrode (ISE) 01/07/2023 10:00:11 0.90 Below low normal 1.13-1.32 (mmol/L) Final Performing Location [facility] [place] [address] [place] [address]
--- OUTSIDE RECORDS SUMMARY | 2023-03-09 14:43 | External Medical Summary ---
Author Name Unknown Address Unknown Organization K01:LABORATORY [facility] - [address] [place] [address] Laboratory Report Ordering Provider Test Date Status DEBBIE LEHMAN 01/07/2023 05:04:19 Final Observation Date Value Abnormality Reference (Units ) Status Magnesium 01/07/2023 05:04:19 1.7 1.5-2.6 (m g/dL) Final Performing Location LABORATORY [facility] - [address] [place] [address]
--- OUTSIDE RECORDS SUMMARY | 2023-03-09 14:43 | External Medical Summary ---
Author Name Unknown Address Unknown Organization K01:[facility] [place] - [facility] [address] [facility] [address] Laboratory Report Ordering Provider Test Date Status DEBBIE LEHMAN 01/07/2023 16:01:05 Final Observation Date Value Abnormality Reference (Units ) Status BUN 01/07/2023 16:01:05 21 Above high normal 6-20 (mg/dL) Final Creatinine 01/07/2023 16:01:05 3.2 Above high normal 0.5-1.0 (mg/dL) Final Glomerular filtration rate/1.73 sq M.predicted [Volume Rate/Area] in Serum, Plasma or Blood by Creatinine-based formula (CKD-EPI) 01/07/2023 16:01:05 16 Below low normal >=60 (mL/min) Final eGFR is calculated based on the CKD-EPI 2020 equation SODIUM 01/07/2023 16:01:05 133 Below low normal 135 -146 (mmol/L) Final Potassium 01/07/2023 16:01:05 3.8 3.5-5.1 (m mol/L) Final Cl 01/07/2023 16:01:05 94 Below low normal 98- 107 (mmol/L) Final CO2 01/07/2023 16:01:05 20 Below low normal 22- 32 (mmol/L) Final Anion gap 01/07/2023 16:01:05 19 Above high normal 7- 15 (mmol/L) Final Glucose 01/07/2023 16:01:05 146 Above high normal 70 -120 (mg/dL) Final Calcium 01/07/2023 16:01:05 8.3 Below low normal 8.4 -10.2 (mg/dL) Final Performing Location LAB[facility] [place] - [facility] [place] [address]
--- OUTSIDE RECORDS SUMMARY | 2023-03-09 14:44 | External Medical Summary ---
Author Name Unknown Address Unknown Organization K01:LABORATORY [facility] - [address] [place] [address] Laboratory Report Ordering Provider Test Date Status DEBBIE LEHMAN 01/06/2023 12:30:00 Final Observation Date Value Abnormality Reference (Units ) Status Bacteria identified in Specimen by Culture 01/06/2023 12:30:00 No growth Final Test: Culture, Blood
Spe heroen Source: Blood, Venous
Specimen Type: Blood
Specimen Date: 01/06/2023 12:30 PM
Result Date: 01/11/2023 2:01 PM
Result Status: Final result
Resulting Lab: LAB[facility]ORY [facility]
[address]
[place] [address]

CULTURE

No growth

null Performing Location LABORATORY [facility] - [address] [place] [address]
--- OUTSIDE RECORDS SUMMARY | 2023-03-09 14:44 | External Medical Summary ---
Author Name Unknown Address Unknown Organization K01:[facility] [place] [address] [place] [address] Laboratory Report Ordering Provider Test Date Status CHARLENE CONTRERAS 01/06/2023 14:32:35 Final CRRT Labs: Check at initiati on of CRRT, One hour after CRRT and Every 6 hours
Labs to be Drawn Peripherally
Send in a separate tube. Observation Date Value Abnormality Reference (Units ) Status Body temperature 01/06/2023 14:32:35 37.0 (C) Final pH of Arterial blood 01/06/2023 14:32:35 7.283 Below low normal 7.350-7.450 (units) Final Carbon dioxide [Partial pressure] in Arterial blood 01/06/2023 14:32:35 46.5 Above high normal 35.0-45.0 (mmHg) Final Oxygen [Partial pressure] in Arterial blood 01/06/2023 14:32:35 124.0 Above high normal 75.0-100.0 (mmHg) Final Base excess, Arterial 01/06/2023 14:32:35 -4.8 Below low normal -2.0-2.0 (mmol/L) Final Hemoglobin [Mass/volume] in Blood by Oximetry 01/06/2023 14:32:35 11.0 Below low normal 12.0-15.3 (g/dL) Final Oxyhemoglobin, Arterial (FO2HB) 01/06/2023 14:32:35 96.6 94.0-99.0 (% total Hgb) Final Carboxyhemoglobin 01/06/2023 14:32:35 0.8 <=1.5 (% total Hgb) Final Smokers: 0-9.0 % Methemoglobin 01/06/2023 14:32:35 0.6 <=1.5 (% total Hgb) Final Deoxyhemoglobin/Hemoglobin.t ot al in Arterial blood 01/06/2023 14:32:35 2.0 0.0-5.0 (% to jackson Hgb) Final Oxygen content in Arterial blood 01/06/2023 14:32:35 15.2 15.0-24.0 (%vol) Teresa l Oxygen/Total gas setting [Volume Fraction] Ventilator 01/06/2023 14:32:35 70 (%) Final increase RR O2 FLOW, ARTERIAL - [facility] 01/06/2023 14:32:35 Not Provided (L/min) Final Bicarbonate, Venous, POC (i-STAT) 01/06/2023 14:32:35 21.3 Below low normal 23.0-31.0 (mmol/L) Final Performing Location [facility] [place] [facility] [address] [facility] [address]
--- OUTSIDE RECORDS SUMMARY | 2023-03-09 14:44 | External Medical Summary ---
Author Name Unknown Address Unknown Organization K01:LABORATORY [facility] [place] [address] [place] [address] Laboratory Report Ordering Provider Test Date Status DEBBIE LEHMAN 01/06/2023 11:57:54 Final PRN intubation, extubation Observation Date Value Abnormality Reference (Units ) Status Body temperature 01/06/2023 11:57:54 37.0 (C) Final pH of Arterial blood 01/06/2023 11:57:54 7.277 Below low normal 7.350-7.450 (units) Final Carbon dioxide [Partial pressure] in Arterial blood 01/06/2023 11:57:54 51.1 Above high normal 35.0-45.0 (mmHg) Final Oxygen [Partial pressure] in Arterial blood 01/06/2023 11:57:54 112.0 Above high normal 75.0-100.0 (mmHg) Final Base excess, Arterial 01/06/2023 11:57:54 -3.5 Below low normal -2.0-2.0 (mmol/L) Final Hemoglobin [Mass/volume] in Blood by Oximetry 01/06/2023 11:57:54 11.3 Below low normal 12.0-15.3 (g/dL) Final Oxyhemoglobin, Arterial (FO2HB) 01/06/2023 11:57:54 95.4 94.0-99.0 (% total Hgb) Final Carboxyhemoglobin 01/06/2023 11:57:54 0.9 <=1.5 (% total Hgb) Final Smokers: 0-9.0 % Methemoglobin 01/06/2023 11:57:54 0.8 <= 1.5 (% total Hgb) Final Deoxyhemoglobin/Hemoglobin .total in Arterial blood 01/06/2023 11:57:54 2.9 0.0 -5.0 (% total Hgb) Final Oxygen content in Arterial blood 01/06/2023 11:57:54 15.4 15.0-24.0 (%vol) Teresa l Oxygen/Total gas setting [Volume Fraction] Ventilator 01/06/2023 11:57:54 70 (%) Final O2 FLOW, ARTERIAL - [facility] 01/06/2023 11:57:54 Not Provided (L/min) Final Bicarbonate, Venous, POC (i-STAT) 01/06/2023 11:57:54 23.1 23.0-31.0 (mmol/L) Pending sale to [facility] Performing Location LABORATORY [facility] [place] - [address] [facility] [place] [address]
--- OUTSIDE RECORDS SUMMARY | 2023-03-09 14:44 | External Medical Summary ---
Author Name Unknown Address Unknown Organization K01:[place] [facility] [place] [address] [place] [address] Laboratory Report Ordering Provider Test Date Status DEBBIE LEHMAN 01/06/2023 11:58:17 Final Observation Date Value Abnormality Reference (Units ) Status SYNC LEUKOCYTES IN BLOOD BY AUTOMATED COUNT 01/06/2023 11:58:17 13.45 Above high normal 4.00-10.80 (K/uL) Final Segs 01/06/2023 11:58:17 89.8 Above high normal 40.0-75.0 (%) Final Lymphs % 01/06/2023 11:58:17 6.6 Below low normal 18.0-42.0 (%) Final Monos 01/06/2023 11:58:17 2.7 1.0-11.0 (%) Final Eosinophils 01/06/2023 11:58:17 0.0 0.0-6.0 (%) Final Basos 01/06/2023 11:58:17 0.1 0.0-2.0 (%) Final Immature Granulocyte, Percent 01/06/2023 11:58:17 0.8 0.0-2.0 (%) Final Absolute Segs 01/06/2023 11:58:17 12.08 Above high normal 1.80-7.70 (K/uL) Final Lymphs, absolute 01/06/2023 11:58:17 0.89 Below low normal 1.00-4.80 (K/ul) Final Monos, Abs 01/06/2023 11:58:17 0.36 0.00-1.10 (K/uL) Final Eos, Abs 01/06/2023 11:58:17 0.00 0.00-0.70 (K/uL) Final Basos, Abs 01/06/2023 11:58:17 0.01 0.00-0.20 (K/uL) Final Immature Granulocytes, Number 01/06/2023 11:58:17 0.11 0.00-0.20 (K/uL) Final Performing Location [facility] [place] [facility] [address] [facility] [address]
--- OUTSIDE RECORDS SUMMARY | 2023-03-09 14:44 | External Medical Summary ---
Author Name Unknown Address Unknown Organization K01:[place] [facility] [place] [facility] [place] [address] Laboratory Report Ordering Provider Test Date Status CHARLENE CONTRERAS 01/06/2023 14:32:03 Final CRRT Labs: check once daily if not done already
Labs to be Drawn Peripherally

Anticoagulation may affect testing. Refer to [facility] Test Catalog for a list of effects. Observation Date Value Abnormality Reference (Units ) Status aPTT panel - Platelet poor plasma 01/06/2023 14:32:03 36 21-38 (seconds) Final Performing Location [facility] [place] [facility] [address]
--- OUTSIDE RECORDS SUMMARY | 2023-03-09 14:44 | External Medical Summary ---
Author Name Unknown Address Unknown Organization K01:[facility] [place] [facility] [place] [address] Laboratory Report Ordering Provider Test Date Status CHARLENE CONTRERAS 01/06/2023 14:32:03 Final CRRT Labs: check once daily if not done already
Labs to be Drawn Peripherally Observation Date Value Abnormality Reference (Units ) Status Albumin 01/06/2023 14:32:03 2.9 Below low normal 3.8-5.0 (g/dL) Final AST (Aspartate aminotransferase) 01/06/2023 14:32:03 13 10-35 (U/L) Final Alk Phos 01/06/2023 14:32:03 171 Above high normal 35-130 (U/L) Final ALT (Alanine aminotransferase) 01/06/2023 14:32:03 10 10-35 (U/L) Final Bilirubin, Total 01/06/2023 14:32:03 0.3 <=1.2 (mg/dL) Final Bilirubin, Direct 01/06/2023 14:32:03 <0.2 0.0-0.3 (mg/dL) Final Protein 01/06/2023 14:32:03 5.8 Below low normal 6.0-8.3 (g/dL) Final Performing Location [facility] [place] [facility] [place] [address]
--- OUTSIDE RECORDS SUMMARY | 2023-03-09 14:44 | External Medical Summary ---
Author Name Unknown Address Unknown Organization K01:LABORATORY [facility] [place] - [address] [place] [address] Laboratory Report Ordering Provider Test Date Status DEBBIE LEHMAN 01/06/2023 11:56:42 Final Observation Date Value Abnormality Reference (Units ) Status Albumin 01/06/2023 11:56:42 3.1 Below low normal 3.8-5.0 (g/dL) Final AST (Aspartate aminotransferase) 01/06/2023 11:56:42 16 10-35 (U/L) Final Alk Phos 01/06/2023 11:56:42 178 Above high normal 35-130 (U/L) Final ALT (Alanine aminotransferase) 01/06/2023 11:56:42 11 10-35 (U/L) Final Bilirubin, Total 01/06/2023 11:56:42 0.3 <=1.2 (mg/dL) Final Bilirubin, Direct 01/06/2023 11:56:42 <0.2 0.0-0.3 (mg/dL) Final Protein 01/06/2023 11:56:42 6.0 6.0-8.3 (g/dL) Final Performing Location LABORATORY [facility] [place] - [address] [place] [address]
--- OUTSIDE RECORDS SUMMARY | 2023-03-09 14:44 | External Medical Summary ---
Author Name Unknown Address Unknown Organization : Laboratory Report Ordering Provider Test Date Status EARLENE IVAN 01/06/2023 11:55:37 Final Observation Date Value Abnormality Reference (Units ) Status Glucose Point of Care 01/06/2023 11:55:37 139 Above high normal 70-120 (mg/dL) Final Performing Location
--- OUTSIDE RECORDS SUMMARY | 2023-03-09 14:44 | External Medical Summary ---
Author Name Unknown Address Unknown Organization [id number]:LABORATORY [facility] [place] - [address] [place] [address] Laboratory Report Ordering Provider Test Date Status DEBBIE LEHMAN 01/06/2023 11:56:42 Final Less than 0.5 ng/mL: Low ris k for progression to sepsis. Review patients condition for localized infections.

0.5 to 2.0 ng/mL: Intermediate risk for progresion to sepsis. Review underlying conditions. Recommend repeat PCT after 6 hours has elapsed.

Greater than 2.0 ng/mL: high risk for progression to sepsis unless other causes are known. Observation Date Value Abnormality Reference (Units ) Status Procalcitonin [Mass/volume] in Serum or Plasma by Immunoassay 01/06/2023 11:56:42 1.40 Above high normal <0.10 (ng/mL) Final Performing Location LABORATORY [facility] [place] - [facility] [place] [address] [place] [address]
--- OUTSIDE RECORDS SUMMARY | 2023-03-09 14:44 | External Medical Summary ---
Author Name Unknown Address Unknown Organization K01:LABORATORY [facility] [place] [facility] - [address] [place] [address] Laboratory Report Ordering Provider Test Date Status DEBBIE LEHMAN 01/06/2023 11:56:42 Final Observation Date Value Abnormality Reference (Units ) Status ABO 01/06/2023 11:56:42 O Final RH 01/06/2023 11:56:42 Positive Final RED BLOOD CELL ANTIBODY SCREEN 01/06/2023 11:56:42 Negative Final SPECIMEN EXPIRATION DATE 01/06/2023 11:56:42 01/09/2023 23:59 Final Performing Location LABORATORY [facility] [place] [facility] - [address] [place] [address]
--- OUTSIDE RECORDS SUMMARY | 2023-03-09 14:44 | External Medical Summary ---
Author Name Unknown Address Unknown Organization K01:[facility] [place] [facility] [address] [place] [address] Laboratory Report Ordering Provider Test Date Status DEBBIE LEHMAN 01/06/2023 11:56:42 Final Observation Date Value Abnormality Reference (Units ) Status Calcium.ionized [Moles/volume] in Blood by Ion-selective membrane electrode (ISE) 01/06/2023 11:56:42 1.08 Below low normal 1.13-1.32 (mmol/L) Final Performing Location [facility] [place] [address] [place] [address]
--- OUTSIDE RECORDS SUMMARY | 2023-03-09 14:44 | External Medical Summary ---
Author Name Unknown Address Unknown Organization K01:[facility] [place] [address] [place] [address] Laboratory Report Ordering Provider Test Date Status JUAN BROWNLEE 01/06/2023 12:17:48 Final Observation Date Value Abnormality Reference (Units ) Status Methicillin resistant Staphylococcus aureus (MRSA) DNA [Presence] in Nose by GABBY with probe detection 01/06/2023 12:17:48 Negative Negative Final No Methicillin resistant Sta phylococcus aureus detected by PCR (amplified probe). Performing Location LABORATORY [facility] - [address] [place] [address]
--- OUTSIDE RECORDS SUMMARY | 2023-03-09 14:44 | External Medical Summary ---
Author Name Unknown Address Unknown Organization K01:LABORATORY [facility] - [address] [place] [address] Laboratory Report Ordering Provider Test Date Status DEBBIE LEHMAN 01/06/2023 11:56:42 Final Observation Date Value Abnormality Reference (Units ) Status Magnesium 01/06/2023 11:56:42 2.2 1.5-2.6 (m g/dL) Final Performing Location LABORATORY [facility] - [address] [place] [address]
--- OUTSIDE RECORDS SUMMARY | 2023-03-09 14:44 | External Medical Summary ---
Author Name Unknown Address Unknown Organization K01:[facility] [place] [facility] [place] [address] [place] [address] Laboratory Report Ordering Provider Test Date Status DEBBIE LEHMAN 01/06/2023 11:58:17 Final Observation Date Value Abnormality Reference (Units ) Status WBC, Total 01/06/2023 11:58:17 13.45 Above high normal 4.00-10.80 (K/uL) Final RBC 01/06/2023 11:58:17 3.74 3.85-5.15 (M/uL) Final Hemoglobin 01/06/2023 11:58:17 11.1 Below low normal 12.0-15.3 (g/dL) Final HCT 01/06/2023 11:58:17 36.5 36.0-45.2 (%) Final MCV 01/06/2023 11:58:17 97.6 81.5-97.5 (fL) Final MCH 01/06/2023 11:58:17 29.7 27.0-34.0 (pg) Final MCHC 01/06/2023 11:58:17 30.4 32.0-36.0 (g/dL) Final RDW 01/06/2023 11:58:17 17.3 11.5-15.5 (%) Final Platelets 01/06/2023 11:58:17 209 140-400 (K/uL) Final MPV 01/06/2023 11:58:17 10.5 6.6-11.1 (fL) Final Nucleated erythrocytes/100 leukocytes [Ratio] in Blood by Automated count 01/06/2023 11:58:17 0 <=0 (/100 WBCs) Final Performing Location [facility] [place] [address] [place] [address]
--- OUTSIDE RECORDS SUMMARY | 2023-03-09 14:44 | External Medical Summary ---
Author Name Unknown Address Unknown Organization K01:[facility] [place] - [facility] [address] [place] [address] Laboratory Report Ordering Provider Test Date Status DEBBIE LEHMAN 01/06/2023 11:56:42 Final Observation Date Value Abnormality Reference (Units ) Status BUN 01/06/2023 11:56:42 47 Above high normal 6-20 (mg/dL) Final Creatinine 01/06/2023 11:56:42 7.7 Above high normal 0.5-1.0 (mg/dL) Final Glomerular filtration rate/1.73 sq M.predicted [Volume Rate/Area] in Serum, Plasma or Blood by Creatinine-based formula (CKD-EPI) 01/06/2023 11:56:42 6 Below low normal >=60 (mL/min) Final eGFR is calculated based on the CKD-EPI 2020 equation SODIUM 01/06/2023 11:56:42 138 135-146 (m mol/L) Final Potassium 01/06/2023 11:56:42 5.8 Above high normal 3. 5-5.1 (mmol/L) Final Cl 01/06/2023 11:56:42 100 98-107 (mm ol/L) Final CO2 01/06/2023 11:56:42 21 Below low normal 22- 32 (mmol/L) Final Anion gap 01/06/2023 11:56:42 17 Above high normal 7- 15 (mmol/L) Final Glucose 01/06/2023 11:56:42 139 Above high normal 70 -120 (mg/dL) Final Calcium 01/06/2023 11:56:42 7.9 Below low normal 8.4 -10.2 (mg/dL) Final Performing Location LABORATORY [facility] [place] - [address] [place] [address]
--- OUTSIDE RECORDS SUMMARY | 2023-03-09 14:44 | External Medical Summary ---
Author Name Unknown Address Unknown Organization K01:[facility] [place] [address] [place] [address] Laboratory Report Ordering Provider Test Date Status RAGHU OWEN 01/06/2023 14:32:03 Final Observation Date Value Abnormality Reference (Units ) Status Troponin T 01/06/2023 14:32:03 99 Above high normal < =14 (ng/L) Final Performing Location LABORATORY [facility] - [address] [place] [address]
--- OUTSIDE RECORDS SUMMARY | 2023-03-09 14:44 | External Medical Summary ---
Author Name Unknown Address Unknown Organization K01:LABORATORY [facility] [place] - [address] [place] [address] Laboratory Report Ordering Provider Test Date Status DEBBIE LEHMAN 01/06/2023 11:56:42 Final Exclude Heart Failure: <300 pg/mL
Diagnose Heart Failure:
Age <50 yr: >450 pg/mL
50-75 yr: >900 pg/mL
>75 yr: >1800 pg/mL
GFR is 30-59 mL/min: >1200 pg/mL or Age- adjusted values
GFR <30 mL/min: do not use, not reliable

Prognostic threshold: 1000 pg/mL Observation Date Value Abnormality Reference (Units ) Status BNP, Pro-hormone 01/06/2023 11:56:42 [address] Above high no rmal <300 (pg/mL) Final Performing Location LABORATORY [facility] [place] - [facility] [address] [place] [address]
--- OUTSIDE RECORDS SUMMARY | 2023-03-09 14:44 | External Medical Summary ---
Author Name Unknown Address Unknown Organization K01:LABORATORY [facility] - [address] [place] [address] Laboratory Report Ordering Provider Test Date Status DOMINIKMYRALEONID 01/06/2023 12:29:00 Final Observation Date Value Abnormality Reference (Units ) Status Bacteria identified in Specimen by Culture 01/06/2023 12:29:00 No growth Final Test: Culture, Blood (Site 2 )
Specimen Source: Blood, Venous
Specimen Type: Blood
Specimen Date: 01/06/2023 12:29 PM
Result Date: 01/11/2023 2:01 PM
Result Status: Final result
Resulting Lab: LABORATORY [facility]
[address]
[place] [address]

CULTURE

No growth

null Performing Location LABORATORY [facility] - [address] [place] [address]
--- OUTSIDE RECORDS SUMMARY | 2023-03-09 14:44 | External Medical Summary ---
Author Name Unknown Address Unknown Organization K01:[place] [place] [address] [place] [address] Laboratory Report Ordering Provider Test Date Status DEBBIE LEHMAN 01/06/2023 11:56:42 Final Observation Date Value Abnormality Reference (Units ) Status Ferritin 01/06/2023 11:56:42 605 Above high normal 13 -150 (ng/mL) Final Postmenopausal women have hi gher ferritin levels than pre-menopausal women. The above reference interval is based on pre-menopausal women. Performing Location LABORATORY [facility] [place] - [address] [place] [address]
--- OUTSIDE RECORDS SUMMARY | 2023-03-09 14:44 | External Medical Summary ---
Author Name Unknown Address Unknown Organization K01:LABORATORY [facility] [place] - [address] [place] [address] Laboratory Report Ordering Provider Test Date Status DEBBIE LEHMAN 01/06/2023 11:56:42 Final Observation Date Value Abnormality Reference (Units ) Status Phosphate 01/06/2023 11:56:42 5.0 Above high normal 2. 5-4.8 (mg/dL) Final Performing Location LABORATORY [facility] - [address] [place] [address]
--- OUTSIDE RECORDS SUMMARY | 2023-03-09 14:45 | External Medical Summary | Summary of Care ---
Author Name Unknown Organization [facility] Address [address] [place] [address] Phone [phone] Care Team Providers Care Child Care Worker Name Role Phone Rona PRETTY MD, Sebastian Robertson Primary Care Pr ovider Encounter Details Date Type Department Care Team Description 10/09/2022 Orders Only Outcomes Research Department [address] [place], [place] [id number] Eduarda Carroll CHRA [employer] Other*[id number] Allergies No known active allergiesdocumented as of this encounter (statuses as of 10/09/2022) Medications Medication Sig Dispensed Refills Start Date End Date Status NEBULIZER COMPRESSOR MISCIndications:CO PD, severity to be determined (HCC) Use as directed 1 Each 1 02/23/2012 Active NEBULIZER/TUBING/M OUTHPIECE KITIndications: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 0 12/03/2014 Active albuterol (PROVENTIL HFA) 108 (90 BASE) MCG/ACT inhalerIndications :COPD, moderate (HCC) Inhale 2 Puffs by mouth every 4 hours. 1 Inhaler 11 10/01/2015 Active Additional Information Patient taking differently:2 Puff ZnhruainicU9T PRN, Reported on 12/07/2015 levothyroxine (LEVOXYL) 175 MCG Tablet Take 175 mcg by mouth once a day on Sunday, , Sunday, and Sunday only. 0 Active Cholecalciferol (VITAMIN D3) 1000 UNITS CAPS Take by mouth daily. Patient not taking due to constipation 0 Active LORazepam (ATIVAN) 1 MG Tablet Take 1 mg by mouth 2 times a day as needed. 0 11/24/2015 Active Levothyroxine Sodium 300 MCG Tablet Take 1 Tab by mouth once a day on Sunday, Sunday, and Sunday only. 0 11/24/2015 Active midodrine HCl (PROAMATINE) 10 MG Tablet Take 10 mg by mouth 3 times a day. 0 01/13/2018 Active Oxycodone-Acetamin ophen 10-325 MG per tablet Take 1 Tab by mouth every 12 hours as needed. 0 03/14/2018 Active gabapentin (NEURONTIN) 300 MG Capsule Take 1 Cap by mouth daily. 90 Cap 5 03/21/2018 Active mirtazapine (REMERON) 15 MG TabletIndications: Moderate episode of recurrent major depressive disorder (HCC) Take 1 Tab by mouth at bedtime. 30 Tab 5 03/21/2018 Active arformoterol Tartrate (BROVANA) 15 MCG/2ML neulizer solutionIndication s:COPD, moderate (HCC) 15 microgram twice daily by nebulizer 1 Vial 5 03/21/2018 Active albuterol sulfate (PROVENTIL) (2.5 MG/3ML) 0.083% nebulizer solution Inhale 1 Vial via nebulizer every 4 hours as needed for Wheezing. 120 Vial 11 06/28/2018 Active Hospital, Clinic, or Other Facility Administered Medication Ordered Dose Route Frequency Start Date End Date Status albuterol sulfate (PROVENTIL) (2.5 MG/3ML) 0.083% inhalation solution 2.5 mgIndications:COPD, severity to be determined (HCC) 2.5 mg NEBULIZER Q4H PRN 06/28/2018 Active documented as of this encounter (statuses as of 10/09/2022) Active Problems Problem Noted Date COPD, group B, by GOLD 2017 classificati on 09/16/2018 Overview: Per COPD GOLD Classification CHB (complete heart block) 05/28/2018 Generalized abdominal pain 10/14/2015 Cardiac pacemaker in situ 12/03/2014 S/P MVR (mitral valve repair) 02/24/2014 S/P TVR (tricuspid valve repair) 014 Preoperative cardiovascular examination 02/24/2014 Opiate overdose 05/20/2013 Central hypoventilation syndrome 014 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 Respiratory failure, [id number] Unresponsive episode 04/11/2013 S/P mitral valve repair [...] as of this encounter (statuses as of 10/09/2022) Resolved Problems Problem Noted Date Resolved Date Heart block 02/04/2013 02/12/2018 [employer] [facility] Other*[id number] 201205/16/2016 Overview: Study Title: Genomic Markers for Patients with Cardiovascular Disease Project # [id number] Toeing Stockings: Eduarda Mcgrath MD [phone] S/P tricuspid valve replacement 01/13/2013 01/27/2013 S/P [...] as of this encounter (statuses as of 10/09/2022) Immunizations Name Administration Dates Next Due H1N1 2009 Influenza, IM 05/04/2009 Pneumococcal Polysaccharide PPV23 (Pneumovax) 02/14/2010,10/26/2005 Seasonal Influenza, Quadriva lent, No Preserve, IM [...] Assigned at Date Recorded Not on file documented as of this encounter Plan of Treatment Upcoming Encounters Date Type Specialty Care Team Description 12/05/2022 Cardiac Studies Cardiology Uri Warren [address] [place] [address] Scheduled Orders Name Type Priority Associated Diagnoses Orde r Schedule MYCODE INITIAL ADULT Lab Routine MyCode Research Other*[id number] Expected: 10/09/2022 (Approximate), Expires: 10/29/2023 Health Maintenance Due Date Last Done Comments Hepatitis B (1 of 3 - 3-dose series) 1965 COVID-19 Vaccine (#1) 01/29/1965 Alpha-1 Antitrypsin 1982 O2 ASSESSMENT COMPLETED IN PAST YEAR FOR COPD 1982 Zoster Vaccines (1 of 2) 07/31/1983 PAP SMEAR-EVERY 3 YRS,AGES 18-100 02/16/2003 02/17/2000 Cologuard 2009 Fecal Occult Blood Test 2009 10/25/2007 Sigmoidoscopy 2009 Mammogram 11/04/2009 11/04/2008 Pneumococcal Vaccine: Pediatrics (0 to 5 Years) and At-Risk Patients (6 to 64 Years) (3 - PCV) 02/14/2011 02/14/2010, 10/26/2005 TSH 03/20/2014 03/20/2013, 01/09, 01/07/2013, Additional history exists Lipid Panel 12/19/2016 12/20/2011, 09/08, 01/28/2008, Additional history exists Colonoscopy 10/12/2018 10/12/2008 Colorectal Cancer Screening 10/12/2018 Diabetes Screening 11/21/2018 11/22/2015, 0 11/19/2015, 11/17/2015, Additional history exists Depression Screening, Annual for Pts 12 and Over 03/21/2019 03/21/2018 Influenza Vaccine (FLU shot) (Season Ended) 2022 01/21/2018, 01/21/2018, 01/06/2013, Additional history exists DTaP,Tdap,and Td Vaccines (3 - Td or Tdap) 03/21/2028 03/21/2018, 11/05/2007 GARDASIL-HPV IMMUNIZATION SERIES Aged Out No longer eligible based on patient's age to complete this topic MENINGOCOCCAL (MENACTRA/MENVEO) Aged Out No longer eligible based on patient's age to complete this topic documented as of this encounter Medical Devices Implanted Type Area Manufacturing Process Engineer Device Identifier Shelf Expiration Date Model / Serial / Lot Ring Tricuspid 28mm - [id number] Implanted:Qty: 1 on 12/27/2012 at [place] [facility] [place] Right: Heart RUIZ [employer] ARIEL 04/17/2017 [id number] / [id number] / [id number] documented as of this encounter Visit Diagnoses Diagnosis MyCode Research Other*[id number] documented in this encounter Advance Directives Latest [...] the patient have Health Care Power of Grey Roll Worker? No Care Teams Child Care Worker Relationship Specialty Start Date End Date Sebastian Rea III, MD PCP - General Internal Medicine 10/29/20 documented as of this encounter
[2023-03-09 14:56] LABS: iSTAT Art Bld Gas pCO2 Correct 38 mmHg (35-46); iSTAT Art Bld Gas pH Corrected 7.419 (7.35-7.45); iSTAT Arterial Blood Gas HCO3 25 meg/L (19-24); iSTAT Arterial Blood Gas pCO2 39 mmHg (35-46); iSTAT Arterial Blood Gas pH 7.41 (7.35-7.45); iSTAT Arterial Blood Gas pO2 63 mmHg (80-95); iSTAT Arterial Blood Gas pO2 C 59; iSTAT Carbon Dioxide 26 mmol/L (24-31); iSTAT FiO2 70 %; iSTAT Hematocrit 32 % (37-47); iSTAT Hemoglobin 10.9 g/dl (12.0-16.0); iSTAT Potassium 3.4 mmol/L (3.3-5.0); iSTAT Site Art Line; iSTAT Sodium 136 mmol/L (135-144)
[2023-03-09] MEDS ORDERED: POTASSIUM CHLORIDE / WTR 20 MEQ/100 ML PLCT IV SCH (15:00)
--- NOTE | 2023-03-09 15:09 | XRay Report ---
XR chest 1V portable CLINICAL HISTORY: ETT position TECHNIQUE: Single frontal radiograph of the chest was obtained. Comparison: Comparison is made to chest radiograph 03/09/2023 FINDINGS: Endotracheal tube terminates approximately 2 cm of the rigoberto. Left venous catheter is stable. Enteri c tube tip and side-port lie below the diaphragm. The cardiomediastinal silhouette is stable. Lungs a re underinflated but clear. No evidence of pleural effusion or pneumothorax. IMPRESSION: Satisfactory appearance of endotracheal tube. ACT 112: Negative or not required by law. Electronically signed by: Robinson Aguila M.D. 03/09/2023 3:08 PM
--- NOTE | 2023-03-09 15:29 | Pharmacy Report ---
Pharmacy PK ABX Note - Date of Service March 09, 2023 - Assessment and Plan Assessment 57 year old F receiving for treatment of vancomycin and zosyn empirically for possible lung source or line infection (left IJ). Patient was receiving scheduled outpatient dialysis and became unresponsive. She did complete 2 hours of HD prior to this occurring. Pertinent microbiologic data includes: MRSA Nasal Swab and bcx pending. Given ESRD and unknown plan for continued HD will not re-o rder after the loading dose today and obtain a random level in the morning. Day # 1 of antimicrobial therapy. Plan Vancomycin * Loading dose: 1500 mg IV x 1 administered earlier today * Maintenance dose: no further doses today * Regimen is predicted to achieve target AUC/DELIA of 400-600 mg/L.hr * Random level ordered for: 03/10/23 with AM labs Pharmacy will continue to follow and will adjust dose/frequency as necessary. Thank you. Pharmacy has transitioned to AUC monitoring for vancomycin. AUC/DELIA is the preferred PK/PD target and is associated with decreased risk of nephrotoxicity compared to traditional trough targets.
[2023-03-09] MEDS: MAGNESIUM SULFATE / D5W 1 GM/100 ML BAG IV SCH ×3 (15:48→19:51)
--- NOTE | 2023-03-09 17:37 | Electrocardiogram Report ---
Test Reason : Blood Pressure : / mmHG Vent. Rate : 097 BPM Atrial Rate : 097 BPM P-R Int : 130 ms QRS Dur : 144 ms QT Int : 468 ms P-R-T Axes : 036 264 017 degrees QTc Int : 594 ms Atrial-sensed ventricular-paced rhythm Abnormal ECG When compared with ECG of 05-JAN-2023 16:07, Vent. rate has increased BY 11 BPM Confirmed by Damir Wisdom ([id number]) on 03/09/2023 5:36:42 PM Referred By: Confirmed By:Wilfred Wisdom
[2023-03-09] MEDS ORDERED: PNEUMOCOCCAL VACCINE (PCV20) 20-VAL CONJ-DIP CRM/PF 0.5 ML SYR IM ONE (18:38)
[2023-03-09] MEDS ORDERED: INFLUENZA VIRUS QUADRIVALENT VACCINE (IIV4) 0.5 ML SYR IM ONE (18:38)
[2023-03-09] MEDS: ICU Protocol for HYPERglycemia SCH ×2 (18:57→22:21)
--- NOTE | 2023-03-09 19:28 | XCELERA ---
[id number] \\[id number]}___[id number].pdf
[2023-03-09] MEDS ORDERED: PHARMACY GLYCEMIC MGMT CONSULT PRN (21:19)
[2023-03-09] MEDS ORDERED: GLUCOSE 40% GEL 15 GM TUBE PO PRN (21:19)
[2023-03-09] MEDS ORDERED: GLUCOSE 10 TAB/TUBE PO PRN (21:19)
[2023-03-09] MEDS ORDERED: GLUCAGON FOR INJ 1 MG VIAL SQ PRN (21:19)
[2023-03-09] MEDS ORDERED: CARBOHYDRATES FOR HYPOGLYCEMIA PO PRN (21:19)
[2023-03-09] MEDS ORDERED: DEXTROSE 50% 50 ML SYRINGE IV PRN (21:19)
[2023-03-09] MEDS: PIPERACILLIN/TAZOBACTAM 4.5 GM in DEXTROSE 5% MINI-B 100 ML IV SCH (21:56)
[2023-03-09] MEDS ORDERED: INSULIN ASPART PER UNIT CHARGE ONE (22:24)
[2023-03-10] MEDS ORDERED: INSULIN ASPART PER UNIT CHARGE ONE (00:08)
[2023-03-10] MEDS: NOREPINEPHRINE/D5W 4 MG/250 ML PLCT IV SCH ×5 (00:09→19:29)
[2023-03-10] MEDS: propofoL 1,000 MG/100 ML VIAL IV SCH ×6 (00:10→23:14)
[2023-03-10] MEDS: HYDROCORTISONE SOD 50 MG in SYRINGE 0 ML IV SCH ×3 (00:14→17:05)
[2023-03-10 00:22] LABS: Albumin Globulin Ratio 0.9 (0.9-2); Albumin Level 2.7 gm/dl (3.4-5.0); BUN Creatinine Ratio 4.7 (10-20); Bilirubin,Total 0.6 mg/dl (0.2-1.0); Calcium 6.6 mg/dl (8.6-10.3); Creatinine Clr Calc Pharmacy 20.6 ml/min; Est GFR (African American) 19.1 ml/min; Est GFR (Non-African American) 16.5 ml/min; Magnesium 2.3 mg/dl (1.7-2.4); Total Protein 5.7 gm/dl (6.0-8.3)
[2023-03-10 04:38] LABS: iSTAT Art Bld Gas pCO2 Correct 33 mmHg (35-46); iSTAT Art Bld Gas pH Corrected 7.463 (7.35-7.45); iSTAT Arterial Blood Gas HCO3 23 meg/L (19-24); iSTAT Arterial Blood Gas pCO2 31 mmHg (35-46); iSTAT Arterial Blood Gas pH 7.48 (7.35-7.45); iSTAT Arterial Blood Gas pO2 57 mmHg (80-95); iSTAT Arterial Blood Gas pO2 C 61; iSTAT Carbon Dioxide 24 mmol/L (24-31); iSTAT FiO2 40 %; iSTAT Hematocrit 34 % (37-47); iSTAT Hemoglobin 11.6 g/dl (12.0-16.0); iSTAT Potassium 4.1 mmol/L (3.3-5.0); iSTAT Site Art Line; iSTAT Sodium 129 mmol/L (135-144)
[2023-03-10] MEDS: INSULIN ASPART PER UNIT CHARGE SC SCH ×5 (04:56→20:27)
[2023-03-10 05:17] LABS: BUN Creatinine Ratio 4.8 (10-20); Creatinine Clr Calc Pharmacy 19.7 ml/min; Est GFR (African American) 18.1 ml/min; Est GFR (Non-African American) 15.6 ml/min; Magnesium 2.4 mg/dl (1.7-2.4); Phosphorus 2.1 mg/dl (2.5-4.9); Potassium 4.3 mmol/L (3.5-5.1)
[2023-03-10] MEDS: VASOPRESSIN 20 UNITS in 0.9 % SODIUM CHLORIDE 100 ML IV SCH ×2 (05:59→17:05)
[2023-03-10 06:55] LABS: Basophils # (auto) 0.02 K/uL (0.00-0.20); Basophils % (auto) 0.2 %; Hematocrit (blood only) 35.4 % (37.0-47.0); Hemoglobin 10.4 g/dl (12.0-16.0); Immature Granulocytes # (auto) 0.05 K/uL (0.01-0.20); Immature Granulocytes % (auto) 0.5 %; Lymphocytes # (auto) 0.79 K/uL (1.20-3.40); Lymphocytes % (auto) 7.3 %; Mean Corpuscular Hemoglobin 29.2 pg (25.0-34.0); Mean Corpuscular Hgb Conc 29.4 g/dL (32.0-36.0); Mean Corpuscular Volume 99.4 fL (80.0-100.0); Mean Platelet Volume 11.3 fL (9.4-12.4); Monocytes # (auto) 0.33 K/uL (0.11-0.59); Neutrophils # (auto) 9.63 K/uL (1.40-6.50); Nucleated RBC # (auto) 0.02 K/uL (0.00-0.12); Nucleated RBC % (auto) 0.2 %; Platelet Count 209 K/uL (130-400); Red Blood Count 3.56 M/uL (4.20-5.40); White Blood Count 10.82 K/ul (4.8-10.8)
[2023-03-10 07:26] LABS: Estimated Average Glucose 74 mg/dl; Hemoglobin A1C 4.2 % (4.5-5.6)
[2023-03-10] MEDS ORDERED: INSULIN ASPART PER UNIT CHARGE SC SCH ×2 (07:30→22:00)
--- NOTE | 2023-03-10 07:38 | XRay Report ---
XR chest 1V portable CLINICAL HISTORY: Respiratory failure. COMPARISON STUDY: Chest radiograph March 09, 2023. Chest CT September 13, 2020. FINDINGS: Tip of endotracheal tube is 2.3 cm above the rigoberto. Tip of nasogastric tube is within the gastric antrum. Right subclavian pacer, median sternotomy wires, prosthetic cardiac valve and left in ternal jugular dual lumen catheter remains in place. There is no pneumothorax. No definite pleural ef fusion. Cardiomediastinal silhouette is stable. Left basilar opacity persists. Mild interstitial prom inence remains unchanged. Peripherally calcified vessels within left upper extremity are incidentally noted. IMPRESSION: 1. Satisfactory positioning of the endotracheal and nasogastric tubes. 2. No pneumothorax. 3. No change in left basilar opacity which could reflect pneumonia or atelectasis. 4. Stable pulmonary vascular congestion. ACT 112: Negative or not required by law. Electronically signed by: Yaw Thacker M.D. 03/10/2023 7:37 AM
[2023-03-10] MEDS ORDERED: ACETAMINOPHEN 1,000 MG/100 ML VIAL IV PRN (08:02)
[2023-03-10] MEDS ORDERED: LEVOTHYROXINE SODIUM IV SCH (09:00)
[2023-03-10] MEDS: HEPARIN SOD 5,000 UNIT/0.5 ML VIAL SQ SCH ×2 (09:09→20:31)
[2023-03-10] MEDS: PIPERACILLIN/TAZOBACTAM 4.5 GM in DEXTROSE 5% MINI-B 100 ML IV SCH ×2 (11:26→21:48)
[2023-03-10] MEDS: PANTOprazole 40 MG in SYRINGE 0 ML IV SCH (11:26)
[2023-03-10] MEDS: TUBE FEEDING WATER FLUSH OG SCH ×4 (11:27→21:48)
--- NOTE | 2023-03-10 11:32 | Pharmacy Report ---
Pharmacy PK ABX Note - Date of Service March 10, 2023 - Assessment and Plan Assessment 03/09: 57 year old F receiving for treatment of vancomycin and zosyn empirically for possible lung source or line infection (left IJ). Patient was receiving scheduled outpatient dialysis and became unresponsive. She did complete 2 hours of HD prior to this occurring. Pertinent microbiologic data includes: MRSA Nasal Swab and bcx pending. Given ESRD and unknown plan for continued HD will not re- order after the loading dose today and obtain a random level in the morning. 03/10: Random level this AM, 20.5mcg/mL. Remains intubated and receiving vasopressor support. No dialysis planned for today- vascular consulted for evaluation of L IJ dialysis catheter/possible temp HD cath placement. Day # 2 of antimicrobial therapy. Plan Vancomycin * Random level this AM, 20.5mcg/mL- therapeutic. No UOP documented. No plan for HD today. * Maintenance dose: no further doses today * Random level tomorrow with AM labs to guide further dosing. Pharmacy will continue to follow and will adjust dose/frequency as necessary. Thank you. Pharmacy has transitioned to AUC monitoring for vancomycin. AUC/DELIA is the preferred PK/PD target and is associated with decreased risk of nephrotoxicity compared to traditional trough targets.
--- NOTE | 2023-03-10 11:58 | Nephrology Progress Note ---
Date of Service March 10, 2023 Assessment & Plan (1) End stage renal disease: (2) Respiratory failure: (3) Hypotension: (4) Anemia: Plan ESRD, on hemodialysis Sunday, Sunday, Sunday, admitted with respiratory failure and hypotension with concern for septic shock. To dialysis yesterday prior to arrival to ER for unresponsiveness during dialysis. Currently on empiric antibiotic coverage. On pressor but generally her blood pressure always runs quite low. Has IJ tunneled dialysis catheter but incision site was open and concern for catheter related infection. -- No acute indication for dialysis, continue to monitor over the weekend, appreciate vascular surgery assistance with tunneled dialysis catheter removal and new dialysis catheter placement. We will plan on dialysis after catheter replacement. --dose patient's for eGFR less than 10 ml/min Admission and Anticipated Discharge Date Admission Date: March 09, 2023 Mando Meyer was seen and evaluated in ICU this morning. She was still intubated and on pressor support however responds. Electrolyte has been acceptable, on FiO2 40%. Review of Systems Review of Systems: Review of system was not possible. Physical Exam 2 Constitutional: critically ill, no distress Respiratory: Auscultation: + diminished lung sounds Cardiovascular: Rate/Rhythm: regular rate and regular rhythm Heart Sounds: normal S1 and normal S2 Extremities: no edema Skin: no rashes, warm and dry Neurologic: responds to painful stimuli Results & Data Vital Signs (Past 12 Hours) Vital Signs Temp Pulse Resp BP BP Pulse Ox O2 Del Method 03/10/23 09:00 111/80 03/10/23 09:00 37.8 C H 80 14 96 03/10/23 08:00 37.9 C H 80 15 96 03/10/23 08:00 131/77 03/10/23 08:00 Mechanical Vent 03/10/23 08:00 03/10/23 08:00 80 133/74 03/10/23 08:00 80 03/10/23 07:48 80 16 97 03/10/23 07:25 92/47 L 03/10/23 07:00 133/68 03/10/23 07:00 37.9 C H 80 14 98 03/10/23 06:30 133/74 03/10/23 06:30 37.9 C H 80 14 98 03/10/23 06:00 132/71 03/10/23 06:00 37.9 C H 80 14 98 03/10/23 05:30 127/75 03/10/23 05:30 37.9 C H 80 14 98 03/10/23 05:00 135/79 03/10/23 05:00 37.9 C H 80 14 98 03/10/23 04:37 14 03/10/23 04:30 37.9 C H 81 14 96 03/10/23 04:30 139/88 03/10/23 04:04 83 18 100 03/10/23 04:00 37.8 C H 83 18 97 03/10/23 04:00 135/70 03/10/23 04:00 135/70 03/10/23 04:00 03/10/23 04:00 83 03/10/23 03:30 134/75 03/10/23 03:30 37.8 C H 84 18 98 03/10/23 03:00 133/86 03/10/23 03:00 37.8 C H 84 18 100 03/10/23 02:30 37.8 C H 86 18 100 03/10/23 02:30 134/82 03/10/23 02:00 121/89 03/10/23 02:00 37.7 C H 86 18 100 03/10/23 01:33 37.7 C H 86 18 99 03/10/23 01:33 132/75 03/10/23 01:30 37.7 C H 86 18 100 03/10/23 01:00 118/51 L 03/10/23 01:00 37.7 C H 85 18 98 03/10/23 00:30 133/83 03/10/23 00:30 37.6 C H 85 18 100 03/10/23 00:00 119/101 H 03/10/23 00:00 37.5 C 93 H 18 96 03/10/23 00:00 03/10/23 00:00 84 96/57 L 03/10/23 00:00 84 FiO2 03/10/23 09:00 03/10/23 09:00 03/10/23 08:00 03/10/23 08:00 03/10/23 08:00 40 03/10/23 08:00 40 03/10/23 08:00 03/10/23 08:00 03/10/23 07:48 40 03/10/23 07:25 03/10/23 07:00 03/10/23 07:00 40 03/10/23 06:30 03/10/23 06:30 03/10/23 06:00 03/10/23 06:00 03/10/23 05:30 03/10/23 05:30 03/10/23 05:00 03/10/23 05:00 03/10/23 04:37 40 03/10/23 04:30 03/10/23 04:30 03/10/23 04:04 50 03/10/23 04:00 03/10/23 04:00 03/10/23 04:00 03/10/23 04:00 40 03/10/23 04:00 03/10/23 03:30 03/10/23 03:30 03/10/23 03:00 03/10/23 03:00 03/10/23 02:30 03/10/23 02:30 03/10/23 02:00 03/10/23 02:00 03/10/23 01:33 03/10/23 01:33 03/10/23 01:30 03/10/23 01:00 03/10/23 01:00 03/10/23 00:30 03/10/23 00:30 03/10/23 00:00 03/10/23 00:00 03/10/23 00:00 50 03/10/23 00:00 03/10/23 00:00 PG Care Time/CCT Total # of Minutes Spent Total Time Spent with Patient: Total time spent is greater than 50% in coordination of care (as documented) at patient's floor/unit and/or counseling patient: Coding Level of Care Code 80615 SUB INP/OBS CARE 2/35MIN Diagnoses End stage renal disease N18.6 Respiratory failure J96.01; J96.02 Chronicity: acute Respiratory failure complication: hypoxia and hypercapnia Hypotension I95.9 Anemia D64.9 (2) Respiratory failure Chronicity: acute Respiratory failure complication: hypoxia and hypercapnia Qualified Code(s): J96.01 - Acute respiratory failure with hypoxia; J96.02 - Acute respiratory failure with hypercapnia
[2023-03-10] MEDS: NOVASOURCE RENAL 2.0 CAL 1000ML BAG OG SCH (12:16)
--- NOTE | 2023-03-10 13:17 | Critical Care Progress Note ---
Date of Service March 10, 2023 Assessment & Plan (1) Shock circulatory: (2) Stress-induced cardiomyopathy: (3) Respiratory failure: (4) Sepsis: (5) Hypercapnic respiratory failure: (6) Hypoxemic respiratory failure, chronic: (7) Anxiety and depression: (8) Hypothyroidism: (9) GERD (gastroesophageal reflux disease): (10) Abdominal hernia without obstruction or gangrene: (11) Cigarette nicotine dependence: (12) Bipolar disorder: (13) Polycystic kidney disease, adult type: (14) COPD (chronic obstructive pulmonary disease): (15) ESRD (end stage renal disease) on dialysis: Plan Reason Critically Ill: 57-year-old female past medical history of end-stage renal disease on hemodialysis, COVID related cardiomyopathy, myxedema coma presented to the hospital from the hemodialysis center found unresponsive. She was intubated in the ER and started on vasopressors. In ICU for further management Neuro - [facility] ICU: Sedation: Propofol and fentanyl Head CT negative 03/09/2023 Cardiac - -- Shock Likely septic Etiology is not clear, aspiration pneumonia is a possibility Patient also has a left-sided permacath which is exposed Random cortisol 14.71 2D echo 01/10/2023: EF 45-50%, moderate size apical and anterior septal wall motion abnormality with hypokinesis, RV normal in size and function Respiratory - -- VDRF Likely secondary to shock Continue with ventilatory support Keep RASS -1 COVID-19 PCR, influenza A/B, RSV negative --Patient caring diagnosis of COPD On 2 and half liters oxygen at home GI - -- Chronically elevated alk phos Likely from underlying CHF Continue to monitor RENAL/LYTES - -- End-stage renal disease with left-sided permacath Nephrology on board --Adult polycystic kidney disease - No issues ENDO - -- History of myxedema coma Current TSH 2.58 Continue with levothyroxine HEME - -- Macrocytic anemia Monitor H&H, keep hemoglobin greater than 7 ID - --Septic shock Etiology not clear, could be line infection from the permacath Procalcitonin 1.1 Questionable aspiration pneumonia Follow blood culture and sputum culture --Prophylaxis VTE: Heparin GI: Pantoprazole Lines: Left femoral central, left femoral arterial, positive Pandey Diet: Tube feeds Plan: In/out: +4.2 L, urine output 200 mL AB.48/31/7 on PEEP of 5, 40% PEEP was increased to 6 and respiratory rate was decreased to 14 from 18 Chest x-ray postintubation showed ET tube 1.5 cm above the rigoberto. I will repeat a chest x-ray now to confirm the position Continue with broad-spectrum antibiotic Continue with hydrocortisone 50 every 8 Left-sided permacath to be removed on Sunday Patient has mild hypophosphatemia. Would not replace given the end-stage renal disease and most likely it will increase by tomorrow Start trophic tube feeds No acute indication for dialysis right now. If the potassium starts to creep up later today we will give a dose of Lokelma. I have personally spent 46 minutes of critical care time in the direct management of this patient. This is a life/limb threatening event. This includes time spent evaluating patient, direct bedside care, chart review, placing orders, interpretation of diagnostic studies, discussion with consultants, patient, and family members, as well as other required patient management activities. This time is exclusive of all separately billable procedures, and teaching time and separate from and in addition to any other critical care service time. Septic shock Admission and Anticipated Discharge Date Admission Date: March 09, 2023 Subjective Patient seen and examined at bedside. No acute distress, notable symptoms overnight She was on 0.17 of Levophed, 0.04 of vasopressin Propofol 30 and fentanyl 50 at the time of examination Her MAP was 69. She was breathing with the vent. She was RASS -2. Trying to move the extremities but not following commands Spiking fever Review of Systems Review of Systems: Unobtainable due to endotracheal tube Physical Exam Physical Exam: Constitutional: No acute distress HEENT: PERRLA, positive ETT Respiratory system: Decreased air entry bilaterally, no wheeze, rhonchi, positive crackles bilateral lower lobes CVS: S1-S2 positive, Positive 2 out of 6 systolic murmur appreciated best at aorta Abdomen: Soft, nontender, nondistended, positive bowel sounds x4, supraumbilical hernia appreciated Extremities: Decreased pulses bilaterally radialis/ dorsalis pedis, no cyanosis, +1 pitting edema bilateral lower extremity Neuro: Intubated, sedated Psych: Unable to assess G/U: Positive Pandey Lines: Left-sided permacath, there is an opening at the proximal site of the tunneled catheter Skin: no rashes, warm and dry Lymphatic: no cervical or axillary lymphadenopathy Results & Data Results & Data Vital Signs (Past 12 Hours) Vital Signs Temp Pulse Resp BP BP Pulse Ox O2 Del Method 03/10/23 10:19 80 19 93 03/10/23 09:00 111/80 03/10/23 09:00 37.8 C H 80 14 96 03/10/23 08:00 37.9 C H 80 15 96 03/10/23 08:00 131/77 03/10/23 08:00 Mechanical Vent 03/10/23 08:00 03/10/23 08:00 80 133/74 03/10/23 08:00 80 03/10/23 07:48 80 16 97 03/10/23 07:25 92/47 L 03/10/23 07:00 133/68 03/10/23 07:00 37.9 C H 80 14 98 03/10/23 06:30 133/74 03/10/23 06:30 37.9 C H 80 14 98 03/10/23 06:00 132/71 03/10/23 06:00 37.9 C H 80 14 98 03/10/23 05:30 127/75 03/10/23 05:30 37.9 C H 80 14 98 03/10/23 05:00 135/79 03/10/23 05:00 37.9 C H 80 14 98 03/10/23 04:37 14 03/10/23 04:30 37.9 C H 81 14 96 03/10/23 04:30 139/88 03/10/23 04:04 83 18 100 03/10/23 04:00 37.8 C H 83 18 97 03/10/23 04:00 135/70 03/10/23 04:00 135/70 03/10/23 04:00 03/10/23 04:00 83 03/10/23 03:30 134/75 03/10/23 03:30 37.8 C H 84 18 98 03/10/23 03:00 133/86 03/10/23 03:00 37.8 C H 84 18 100 03/10/23 02:30 37.8 C H 86 18 100 03/10/23 02:30 134/82 03/10/23 02:00 121/89 03/10/23 02:00 37.7 C H 86 18 100 03/10/23 01:33 37.7 C H 86 18 99 03/10/23 01:33 132/75 03/10/23 01:30 37.7 C H 86 18 100 FiO2 03/10/23 10:19 35 03/10/23 09:00 03/10/23 09:00 03/10/23 08:00 03/10/23 08:00 03/10/23 08:00 40 03/10/23 08:00 40 03/10/23 08:00 03/10/23 08:00 03/10/23 07:48 40 03/10/23 07:25 03/10/23 07:00 03/10/23 07:00 40 03/10/23 06:30 03/10/23 06:30 03/10/23 06:00 03/10/23 06:00 03/10/23 05:30 03/10/23 05:30 03/10/23 05:00 03/10/23 05:00 03/10/23 04:37 40 03/10/23 04:30 03/10/23 04:30 03/10/23 04:04 50 03/10/23 04:00 03/10/23 04:00 03/10/23 04:00 03/10/23 04:00 40 03/10/23 04:00 03/10/23 03:30 03/10/23 03:30 03/10/23 03:00 03/10/23 03:00 03/10/23 02:30 03/10/23 02:30 03/10/23 02:00 03/10/23 02:00 03/10/23 01:33 03/10/23 01:33 03/10/23 01:30 Coding Level of Care Code 42603 CRITICAL CARE 1ST 30-74M Diagnoses Shock circulatory R57.9 Stress-induced cardiomyopathy I51.81 Respiratory failure J96.01; J96.02 Chronicity: acute Respiratory failure complication: hypoxia and hypercapnia Sepsis A41.9; R65.20; J96.02 Acute respiratory failure type: with hypercapnia Sepsis acute organ dysfunction status: with acute organ dysfunction Sepsis type: sepsis due to unspecified organism Severe sepsis acute organ dysfunction type: acute respiratory failure Severe sepsis shock status: unspecified Hypercapnic respiratory failure J96.92 Hypoxemic respiratory failure, chronic J96.11 Anxiety and depression F41.9; F32.9 Hypothyroidism E03.9 GERD (gastroesophageal reflux disease) K21.9 Abdominal hernia without obstruction or gangrene K46.9 Cigarette nicotine dependence F17.210 Bipolar disorder F31.9 Polycystic kidney disease, adult type Q61.2 COPD (chronic obstructive pulmonary disease) J44.9 ESRD (end stage renal disease) on dialysis N18.6; Z99.2 (3) Respiratory failure Chronicity: acute Respiratory failure complication: hypoxia and hypercapnia Qualified Code(s): J96.01 - Acute respiratory failure with hypoxia; J96.02 - Acute respiratory failure with hypercapnia (4) Sepsis Acute respiratory failure type: with hypercapnia Sepsis acute organ dysfunction status: with acute organ dysfunction Sepsis type: sepsis due to unspecified organism Severe sepsis acute organ dysfunction type: acute respiratory failure Severe sepsis shock status: unspecified Qualified Code(s): A41.9 - Sepsis, unspecified organism; R65.20 - Severe sepsis without septic shock; J96.02 - Acute respiratory failure with hypercapnia
--- NOTE | 2023-03-10 14:12 | Pharmacy Report ---
Pharmacy Glycemic Short Note 2 - Date of Service March 10, 2023 - Glycemic Short BSG Results (Last 24 hours): 03/09/23 03/09/23 03/09/23 14:33 18:02 21:12 Glucose POC Glucose 171 H POC Glucose (other) 225 H 203 H 03/09/23 03/09/23 03/09/23 22:18 23:21 23:58 Glucose 179 H POC Glucose POC Glucose (other) 193 H 172 H 03/10/23 03/10/23 03/10/23 04:17 04:55 07:35 Glucose 131 H POC Glucose POC Glucose (other) 138 H 144 H 03/10/23 11:40 Glucose POC Glucose POC Glucose (other) 137 H OUTPATIENT ANTIDIABETIC REGIMEN: * Diet-controlled borderline T2DM diabetes per PMH * Patient's A1c = 4.2% (03/10/23) * However, this result is likely somewhat unreliable in ESRD patients d/t interactions between the A1c analyzing technique and high levels of urea in ESRD, reduced RBC life span, iron deficiency anemia, and EPO administration. HbA1c > 7.5% in ESRD patient may overestimate the extent of hyperglycemia in ESRD patients. ASSESSMENT: * FRANCK is a 57 year old female admitted to ICU on 03/09/23 w/ septic shock secondary to multifocal pneumonia * PMH includes ESRD (HD on MWF) and borderline T2DM (HbA1c unreliable in light of ESRD and macrocytic anemia) * Receiving hydrocortisone 50 mg IV q8h * Will be conservative with initial insulin dosing, given no antidiabetic medications/insulin at home PLAN FOR INPATIENT GLYCEMIC CONTROL: * Basal insulin * hold * Bolus insulin * NovoLog per scale ACHS or Q6hrs while NPO * Goal Range: Low 110 mg/dL - High 140 mg/dL * Correction Factor: 40 mg/dL/unit * Nutritional / Prandial insulin per carb ratio of 1 unit per 20 grams CHO consumed
--- NOTE | 2023-03-10 14:58 | Hospitalist Progress Note ---
Date of Service March 10, 2023 Assessment & Plan (1) Septic shock: Plan: source? 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 (2) Complication associated with dialysis catheter: Plan: Exposed left tunneled dialysis catheter - noticed by son yesterday Consult vascular surgery Could be a likely source of infection Appreciate vascular assistance with tunneled dialysis catheter removal and new dialysis catheter placement (3) Multifocal pneumonia: Plan: possible aspiration Zosyn+ vancomycin (4) Hypercapnic respiratory failure: Plan: Now intubated and sedated - repeat ABG pending Ongoing ventilator management per ICU team (5) Macrocytic anemia: Plan: Decreased Hgb 8.5 since December although she has had a prolonged hospitalization since then and has ESRD on dialysis therefore low suspicion of GI bleed however given high dose vasopressor support and history of GERD will continue pantoprazole 40mg IV daily Trend Hgb q6h to make sure stable Ferritin, iron studies, B12, folate, retic count Type and cross 2 units (6) GERD (gastroesophageal reflux disease): Plan: Pantoprazole 40mg IV daily (7) Hypothyroidism: Plan: TSH normal Continue levothyroxine IV Recent history of myxedema coma (8) Pacemaker: Plan: Previously placed for heart block (9) ESRD (end stage renal disease) on dialysis: Plan: No urgent need for dialysis - received half session on day of admission Consult nephrology (10) Stress-induced cardiomyopathy: Plan: Repeat TTE Plan VTE Prophyalxis - heparin Diet - NPO full code Admission and Anticipated Discharge Date Admission Date: March 09, 2023 Subjective patient is intubated, on pressors, sedated. Review of Systems Review of Systems: Unobtainable due to endotracheal tube Physical Exam Physical Exam: General: intubated Heart: S1, S2/regular rate and rhythm, no murmur rubs or gallops Lungs: Clear to auscultation bilaterally. Abdomen: Soft/nontender/nondistended. No hepatosplenomegaly Extremities: No clubbing/cyanosis. No edema Behavior: unable to assess Results & Data Results & Data Vital Signs (Past 12 Hours) Vital Signs Temp Pulse Resp BP BP Pulse Ox O2 Del Method 03/10/23 14:00 37.4 C 80 14 94 03/10/23 14:00 148/92 H 03/10/23 13:00 150/95 H 03/10/23 13:00 37.5 C 80 14 94 03/10/23 12:00 37.5 C 80 14 95 03/10/23 12:00 147/88 H 03/10/23 12:00 03/10/23 12:00 80 03/10/23 11:00 37.7 C H 80 14 95 03/10/23 11:00 142/91 H 03/10/23 11:00 142/91 H 03/10/23 10:31 37.7 C H 80 17 94 03/10/23 10:19 80 19 93 03/10/23 10:00 37.7 C H 80 19 94 03/10/23 09:00 111/80 03/10/23 09:00 37.8 C H 80 14 96 03/10/23 08:00 37.9 C H 80 15 96 03/10/23 08:00 131/77 03/10/23 08:00 Mechanical Vent 03/10/23 08:00 03/10/23 08:00 80 133/74 03/10/23 08:00 80 03/10/23 07:48 80 16 97 03/10/23 07:25 92/47 L 03/10/23 07:00 133/68 03/10/23 07:00 37.9 C H 80 14 98 03/10/23 06:30 133/74 03/10/23 06:30 37.9 C H 80 14 98 03/10/23 06:00 132/71 03/10/23 06:00 37.9 C H 80 14 98 03/10/23 05:30 127/75 03/10/23 05:30 37.9 C H 80 14 98 03/10/23 05:00 135/79 03/10/23 05:00 37.9 C H 80 14 98 03/10/23 04:37 14 03/10/23 04:30 37.9 C H 81 14 96 03/10/23 04:30 139/88 03/10/23 04:04 83 18 100 03/10/23 04:00 37.8 C H 83 18 97 03/10/23 04:00 135/70 03/10/23 04:00 135/70 03/10/23 04:00 03/10/23 04:00 83 03/10/23 03:30 134/75 03/10/23 03:30 37.8 C H 84 18 98 03/10/23 03:00 133/86 03/10/23 03:00 37.8 C H 84 18 100 FiO2 03/10/23 14:00 03/10/23 14:00 03/10/23 13:00 03/10/23 13:00 03/10/23 12:00 03/10/23 12:00 03/10/23 12:00 35 03/10/23 12:00 03/10/23 11:00 03/10/23 11:00 03/10/23 11:00 03/10/23 10:31 03/10/23 10:19 35 03/10/23 10:00 03/10/23 09:00 03/10/23 09:00 03/10/23 08:00 03/10/23 08:00 03/10/23 08:00 40 03/10/23 08:00 40 03/10/23 08:00 03/10/23 08:00 03/10/23 07:48 40 03/10/23 07:25 03/10/23 07:00 03/10/23 07:00 40 03/10/23 06:30 03/10/23 06:30 03/10/23 06:00 03/10/23 06:00 03/10/23 05:30 03/10/23 05:30 03/10/23 05:00 03/10/23 05:00 03/10/23 04:37 40 03/10/23 04:30 03/10/23 04:30 03/10/23 04:04 50 03/10/23 04:00 03/10/23 04:00 03/10/23 04:00 03/10/23 04:00 40 03/10/23 04:00 03/10/23 03:30 03/10/23 03:30 03/10/23 03:00 03/10/23 03:00 Laboratory Results Abnormal lab results 03/09/23 03/09/23 03/09/23 Range/Units 18:02 21:12 22:18 WBC (4.8-10.8) K/ul RBC (4.20-5.40) M/uL Hgb (12.0-16.0) g/dl POC Hgb (12.0-16.0) g/dl Hct (37.0-47.0) % POC Hct (37-47) % MCHC (32.0-36.0) g/dL RDW Std Deviation (36.4-46.3) fL RDW Coeff of Ya (11.5-14.5) % Neut # (Auto) (1.40-6.50) K/uL Lymph # (Auto) (1.20-3.40) K/uL POC pH (7.35-7.45) POC pCO2 (35-46) mmHg POC pO2 (80-95) mmHg ABG pH (Temp Correct) (7.35-7.45) ABG pCO2 (Temp Corrct (35-46) mmHg POC Sodium (135-144) mmol/L Sodium (136-145) mmol/L Creatinine (0.6-1.2) mg/dl BUN/Creatinine Ratio (10-20) Glucose (70-99(Fasting)) mg/dl POC Glucose (other) 225 H 203 H 193 H (70-99) mg/dl Hemoglobin A1c (4.5-5.6) % Calcium (8.6-10.3) mg/dl Phosphorus (2.5-4.9) mg/dl AST (13-39) U/L Alkaline Phosphatase (34-104) U/L Total Protein (6.0-8.3) gm/dl Albumin (3.4-5.0) gm/dl Random Vancomycin (10-20) mcg/ml 03/09/23 03/09/23 03/10/23 Range/Units 23:21 23:58 04:17 WBC 10.82 H (4.8-10.8) K/ul RBC 3.56 L (4.20-5.40) M/uL Hgb 10.4 L (12.0-16.0) g/dl POC Hgb (12.0-16.0) g/dl Hct 35.4 L (37.0-47.0) % POC Hct (37-47) % MCHC 29.4 L (32.0-36.0) g/dL RDW Std Deviation 67.0 H (36.4-46.3) fL RDW Coeff of Ya 18.0 H (11.5-14.5) % Neut # (Auto) 9.63 H (1.40-6.50) K/uL Lymph # (Auto) 0.79 L (1.20-3.40) K/uL POC pH (7.35-7.45) POC pCO2 (35-46) mmHg POC pO2 (80-95) mmHg ABG pH (Temp Correct) (7.35-7.45) ABG pCO2 (Temp Corrct (35-46) mmHg POC Sodium (135-144) mmol/L Sodium 132 L 131 L (136-145) mmol/L Creatinine 2.99 H 3.13 H (0.6-1.2) mg/dl BUN/Creatinine Ratio 4.7 L 4.8 L (10-20) Glucose 179 H 131 H (70-99(Fasting)) mg/dl POC Glucose (other) 172 H (70-99) mg/dl Hemoglobin A1c 4.2 L (4.5-5.6) % Calcium 6.6 L 7.0 L (8.6-10.3) mg/dl Phosphorus 2.0 L 2.1 L (2.5-4.9) mg/dl AST 11 L (13-39) U/L Alkaline Phosphatase 213 H (34-104) U/L Total Protein 5.7 L (6.0-8.3) gm/dl Albumin 2.7 L (3.4-5.0) gm/dl Random Vancomycin 20.5 H (10-20) mcg/ml 03/10/23 03/10/23 03/10/23 Range/Units 04:25 04:55 07:35 WBC (4.8-10.8) K/ul RBC (4.20-5.40) M/uL Hgb (12.0-16.0) g/dl POC Hgb 11.6 L (12.0-16.0) g/dl Hct (37.0-47.0) % POC Hct 34 L (37-47) % MCHC (32.0-36.0) g/dL RDW Std Deviation (36.4-46.3) fL RDW Coeff of Ya (11.5-14.5) % Neut # (Auto) (1.40-6.50) K/uL Lymph # (Auto) (1.20-3.40) K/uL POC pH 7.48 H (7.35-7.45) POC pCO2 31 L (35-46) mmHg POC pO2 57 L (80-95) mmHg ABG pH (Temp Correct) 7.463 H (7.35-7.45) ABG pCO2 (Temp Corrct 33 L (35-46) mmHg POC Sodium 129 L (135-144) mmol/L Sodium (136-145) mmol/L Creatinine (0.6-1.2) mg/dl BUN/Creatinine Ratio (10-20) Glucose (70-99(Fasting)) mg/dl POC Glucose (other) 138 H 144 H (70-99) mg/dl Hemoglobin A1c (4.5-5.6) % Calcium (8.6-10.3) mg/dl Phosphorus (2.5-4.9) mg/dl AST (13-39) U/L Alkaline Phosphatase (34-104) U/L Total Protein (6.0-8.3) gm/dl Albumin (3.4-5.0) gm/dl Random Vancomycin (10-20) mcg/ml 03/10/23 Range/Units 11:40 WBC (4.8-10.8) K/ul RBC (4.20-5.40) M/uL Hgb (12.0-16.0) g/dl POC Hgb (12.0-16.0) g/dl Hct (37.0-47.0) % POC Hct (37-47) % MCHC (32.0-36.0) g/dL RDW Std Deviation (36.4-46.3) fL RDW Coeff of Ya (11.5-14.5) % Neut # (Auto) (1.40-6.50) K/uL Lymph # (Auto) (1.20-3.40) K/uL POC pH (7.35-7.45) POC pCO2 (35-46) mmHg POC pO2 (80-95) mmHg ABG pH (Temp Correct) (7.35-7.45) ABG pCO2 (Temp Corrct (35-46) mmHg POC Sodium (135-144) mmol/L Sodium (136-145) mmol/L Creatinine (0.6-1.2) mg/dl BUN/Creatinine Ratio (10-20) Glucose (70-99(Fasting)) mg/dl POC Glucose (other) 137 H (70-99) mg/dl Hemoglobin A1c (4.5-5.6) % Calcium (8.6-10.3) mg/dl Phosphorus (2.5-4.9) mg/dl AST (13-39) U/L Alkaline Phosphatase (34-104) U/L Total Protein (6.0-8.3) gm/dl Albumin (3.4-5.0) gm/dl Random Vancomycin (10-20) mcg/ml Diagnostic Findings Chest X-Ray 03/09/23 14:41 XR chest 1V portable CLINICAL HISTORY: ETT position TECHNIQUE: Single frontal radiograph of the chest was obtained. Comparison: Comparison is made to chest radiograph 03/09/2023 FINDINGS: Endotracheal tube terminates approximately 2 cm of the rigoberto. Left venous catheter is stable. Enteric tube tip and side-port lie below the diaphragm. The cardiomediastinal silhouette is stable. Lungs are underinflated but clear. No evidence of pleural effusion or pneumothorax. IMPRESSION: Satisfactory appearance of endotracheal tube. ACT 112: Negative or not required by law. Electronically signed by: Robinson Aguila M.D. 03/09/2023 3:08 PM Chest X-Ray 03/10/23 07:00 XR chest 1V portable CLINICAL HISTORY: Respiratory failure. COMPARISON STUDY: Chest radiograph March 09, 2023. Chest CT September 13, 2020. FINDINGS: Tip of endotracheal tube is 2.3 cm above the rigoberto. Tip of nasogastric tube is within the gastric antrum. Right subclavian pacer, median sternotomy wires, prosthetic cardiac valve and left internal jugular dual lumen catheter remains in place. There is no pneumothorax. No definite pleural effusion. Cardiomediastinal silhouette is stable. Left basilar opacity persists. Mild interstitial prominence remains unchanged. Peripherally calcified vessels within left upper extremity are incidentally noted. IMPRESSION: 1. Satisfactory positioning of the endotracheal and nasogastric tubes. 2. No pneumothorax. 3. No change in left basilar opacity which could reflect pneumonia or atelectasis. 4. Stable pulmonary vascular congestion. ACT 112: Negative or not required by law. Electronically signed by: Yaw Thacker M.D. 03/10/2023 7:37 AM PG Care Time/CCT Total # of Minutes Spent Total Time Spent with Patient: Total time spent is greater than 50% in coordination of care (as documented) at patient's floor/unit and/or counseling patient: Coding Level of Care Code 68629 SUB INP/OBS CARE 2/35MIN Diagnoses Septic shock A41.9; R65.21 Complication associated with dialysis catheter T82.9XXA Multifocal pneumonia J18.9 Hypercapnic respiratory failure J96.92 Macrocytic anemia D53.9 GERD (gastroesophageal reflux disease) K21.9 Hypothyroidism E03.9 Pacemaker Z95.0 ESRD (end stage renal disease) on dialysis N18.6; Z99.2 Stress-induced cardiomyopathy I51.81
[2023-03-10] MEDS: fentaNYL BOLUS from BAG IV PRN (22:02)
[2023-03-11] MEDS: HYDROCORTISONE SOD 50 MG in SYRINGE 0 ML IV SCH ×3 (00:19→19:52)
[2023-03-11] MEDS: INSULIN ASPART PER UNIT CHARGE SC SCH ×6 (00:24→20:15)
[2023-03-11] MEDS: TUBE FEEDING WATER FLUSH OG SCH ×6 (01:45→22:30)
[2023-03-11] MEDS: VASOPRESSIN 20 UNITS in 0.9 % SODIUM CHLORIDE 100 ML IV SCH ×3 (01:45→19:51)
[2023-03-11] MEDS: NOREPINEPHRINE/D5W 4 MG/250 ML PLCT IV SCH ×3 (02:23→10:03)
[2023-03-11] MEDS: propofoL 1,000 MG/100 ML VIAL IV SCH ×5 (03:44→19:52)
[2023-03-11 04:30] LABS: iSTAT Allen Test Pass; iSTAT Art Bld Gas pCO2 Correct 40 mmHg (35-46); iSTAT Art Bld Gas pH Corrected 7.337 (7.35-7.45); iSTAT Arterial Blood Gas HCO3 22 meg/L (19-24); iSTAT Arterial Blood Gas pCO2 40 mmHg (35-46); iSTAT Arterial Blood Gas pH 7.34 (7.35-7.45); iSTAT Arterial Blood Gas pO2 70 mmHg (80-95); iSTAT Arterial Blood Gas pO2 C 71; iSTAT Carbon Dioxide 23 mmol/L (24-31); iSTAT FiO2 35 %; iSTAT Hematocrit 34 % (37-47); iSTAT Hemoglobin 11.6 g/dl (12.0-16.0); iSTAT Potassium 4.6 mmol/L (3.3-5.0); iSTAT Site Art Line; iSTAT Sodium 125 mmol/L (135-144)
[2023-03-11 04:33] LABS: Hematocrit (blood only) 32.8 % (37.0-47.0); Hemoglobin 10.1 g/dl (12.0-16.0); Immature Granulocytes # (auto) 0.04 K/uL (0.01-0.20); Immature Granulocytes % (auto) 0.4 %; Mean Corpuscular Hemoglobin 29.4 pg (25.0-34.0); Mean Corpuscular Hgb Conc 30.8 g/dL (32.0-36.0); Mean Corpuscular Volume 95.3 fL (80.0-100.0); Monocytes # (auto) 0.47 K/uL (0.11-0.59); Monocytes % (auto) 4.7 %; Neutrophils # (auto) 8.67 K/uL (1.40-6.50); Neutrophils % (auto) 86.9 %; Nucleated RBC # (auto) 0.02 K/uL (0.00-0.12); Nucleated RBC % (auto) 0.2 %; Platelet Count 215 K/uL (130-400); RDW Coefficient of Variation 17.9 % (11.5-14.5); RDW Standard Deviation 62.1 fL (36.4-46.3); Red Blood Count 3.44 M/uL (4.20-5.40); White Blood Count 9.98 K/ul (4.8-10.8)
[2023-03-11 04:55] LABS: BUN Creatinine Ratio 6.6 (10-20); Calcium 7.1 mg/dl (8.6-10.3); Creatinine Clr Calc Pharmacy 15.7 ml/min; Est GFR (African American) 13.7 ml/min; Est GFR (Non-African American) 11.9 ml/min; Magnesium 2.2 mg/dl (1.7-2.4); Phosphorus 4.2 mg/dl (2.5-4.9); Potassium 4.7 mmol/L (3.5-5.1)
--- NOTE | 2023-03-11 07:50 | Critical Care Progress Note ---
Date of Service March 11, 2023 Assessment & Plan (1) Shock circulatory: (2) Stress-induced cardiomyopathy: (3) Respiratory failure: (4) Sepsis: (5) Hypercapnic respiratory failure: (6) Hypoxemic respiratory failure, chronic: (7) Anxiety and depression: (8) Hypothyroidism: (9) GERD (gastroesophageal reflux disease): (10) Abdominal hernia without obstruction or gangrene: (11) Cigarette nicotine dependence: (12) Bipolar disorder: (13) Polycystic kidney disease, adult type: (14) COPD (chronic obstructive pulmonary disease): (15) ESRD (end stage renal disease) on dialysis: Plan Reason Critically Ill: 57-year-old female past medical history of end-stage renal disease on hemodialysis, COVID related cardiomyopathy, myxedema coma presented to the hospital from the hemodialysis center found unresponsive. She was intubated in the ER and started on vasopressors. In ICU for further management Neuro - [facility] ICU: Sedation: Propofol and fentanyl Head CT negative 03/09/2023 Cardiac - -- Shock Likely septic Etiology is not clear, aspiration pneumonia is a possibility Patient also has a left-sided permacath which is exposed Random cortisol 14.71 2D echo 01/10/2023: EF 45-50%, moderate size apical and anterior septal wall motion abnormality with hypokinesis, RV normal in size and function Respiratory - -- VDRF Likely secondary to shock Continue with ventilatory support Keep RASS -1 COVID-19 PCR, influenza A/B, RSV negative --Patient caring diagnosis of COPD On 2 and half liters oxygen at home GI - -- Chronically elevated alk phos Likely from underlying CHF Continue to monitor RENAL/LYTES - -- End-stage renal disease with left-sided permacath Nephrology on board --Adult polycystic kidney disease - No issues ENDO - -- History of myxedema coma Current TSH 2.58 Continue with levothyroxine HEME - -- Macrocytic anemia Monitor H&H, keep hemoglobin greater than 7 ID - --Septic shock Etiology not clear, could be line infection from the permacath Procalcitonin 1.1 Questionable aspiration pneumonia Follow blood culture and sputum culture --Prophylaxis VTE: Heparin GI: Pantoprazole Lines: Left femoral central, left femoral arterial, positive Pandey Diet: Tube feeds Plan: In/out: + 2 L, +6.4 L since coming to the hospital AB.34/40/70 on PEEP of 6, 35% with respiratory to 14 Respiratory was increased to 16 Patient is hyponatremic and hypochloremic today, secondary to volume overload along with getting half NS and the drips. Continue to monitor Patient has high anion gap today most likely from elevated creatinine and BUN also increasing. Continue to monitor Continue with Zosyn, discontinue vancomycin. Blood cultures are negative to date Decrease hydrocortisone 50 every 12 Try to wean the vasopressors down. If the patient is on low-dose of vasopressors then extubation trial could be thought of Plan for permacath removal tomorrow I have personally spent 38 minutes of critical care time in the direct management of this patient. This is a life/limb threatening event. This includes time spent evaluating patient, direct bedside care, chart review, placing orders, interpretation of diagnostic studies, discussion with consultants, patient, and family members, as well as other required patient management activities. This time is exclusive of all separately billable procedures, and teaching time and separate from and in addition to any other critical care service time. Septic shock Admission and Anticipated Discharge Date Admission Date: March 09, 2023 Subjective Patient seen and examined at bedside. No acute distress, no adverse events overnight. She was on 25 propofol, 50 of fentanyl at the time of examination Vasopressors where at 0.04 vasopressin and 0.08 of Levophed. Her map was in the 48 She was RASS -1, answering questions by nodding her head. Moving all extremities on command She has been afebrile Review of Systems 2 Review of Systems: Unobtainable due to endotracheal tube Physical Exam 2 Physical Exam: Constitutional: No acute distress HEENT: PERRLA, positive ETT Respiratory system: Decreased air entry bilaterally, no wheeze, rhonchi, positive crackles bilateral lower lobes CVS: S1-S2 positive, Positive 2 out of 6 systolic murmur appreciated best at aorta Abdomen: Soft, nontender, nondistended, positive bowel sounds x4, supraumbilical hernia appreciated Extremities: Decreased pulses bilaterally radialis/ dorsalis pedis, no cyanosis, +1 pitting edema bilateral lower extremity Neuro: Intubated, sedated, RASS -1, moving all extremities on command Psych: Unable to assess G/U: No Pandey Lines: Left-sided permacath, there is an opening at the proximal site of the tunneled catheter Skin: no rashes, warm and dry Lymphatic: no cervical or axillary lymphadenopathy Results & Data Results & Data Vital Signs (Past 12 Hours) Vital Signs Temp Pulse Resp BP Pulse Ox O2 Del Method FiO2 03/11/23 07:33 80 03/11/23 07:00 36.9 C 80 14 100 03/11/23 07:00 105/77 03/11/23 06:30 37.0 C 80 14 99 03/11/23 06:30 104/76 03/11/23 06:00 37.1 C 80 14 97 03/11/23 06:00 99/76 L 03/11/23 05:40 103/69 03/11/23 05:40 37.1 C 80 13 94 03/11/23 05:30 37.2 C 80 18 98 03/11/23 05:00 37.2 C 80 14 100 03/11/23 04:30 37.2 C 80 14 100 03/11/23 04:30 126/86 03/11/23 04:00 128/88 03/11/23 04:00 37.2 C 80 14 100 03/11/23 04:00 35 03/11/23 03:30 124/87 03/11/23 03:30 37.3 C 80 11 L 100 03/11/23 03:27 90 14 100 35 03/11/23 03:00 37.3 C 80 19 100 03/11/23 03:00 117/85 03/11/23 02:30 122/85 03/11/23 02:30 37.3 C 80 19 100 03/11/23 02:00 122/83 03/11/23 02:00 37.4 C 80 12 100 03/11/23 01:30 116/87 03/11/23 01:00 37.4 C 80 15 100 03/11/23 01:00 132/91 03/11/23 00:30 37.4 C 80 15 100 03/11/23 00:30 130/76 03/11/23 00:00 37.4 C 80 0 L 96 03/11/23 00:00 131/85 03/11/23 00:00 35 03/10/23 23:30 128/76 03/10/23 23:30 37.5 C 80 15 96 03/10/23 23:00 37.6 C H 80 15 100 03/10/23 23:00 134/88 03/10/23 22:30 37.6 C H 80 15 94 03/10/23 22:30 131/85 03/10/23 22:04 80 15 98 35 03/10/23 22:01 116/76 03/10/23 22:00 37.6 C H 80 17 92 03/10/23 21:30 106/84 03/10/23 21:30 37.7 C H 80 16 93 03/10/23 21:00 37.7 C H 80 15 93 03/10/23 20:30 37.7 C H 80 15 93 03/10/23 20:00 37.7 C H 80 15 93 Mechanical Vent 35 03/10/23 20:00 Mechanical Vent 35 03/10/23 20:00 35 Laboratory Results 03/11/23 03:55 03/11/23 03:55 Coding Level of Care Code 40618 CRITICAL CARE 1ST 30-74M Diagnoses Shock circulatory R57.9 Stress-induced cardiomyopathy I51.81 Respiratory failure J96.01; J96.02 Chronicity: acute Respiratory failure complication: hypoxia and hypercapnia Sepsis A41.9; R65.20; J96.02 Acute respiratory failure type: with hypercapnia Sepsis acute organ dysfunction status: with acute organ dysfunction Sepsis type: sepsis due to unspecified organism Severe sepsis acute organ dysfunction type: acute respiratory failure Severe sepsis shock status: unspecified Hypercapnic respiratory failure J96.92 Hypoxemic respiratory failure, chronic J96.11 Anxiety and depression F41.9; F32.9 Hypothyroidism E03.9 GERD (gastroesophageal reflux disease) K21.9 Abdominal hernia without obstruction or gangrene K46.9 Cigarette nicotine dependence F17.210 Bipolar disorder F31.9 Polycystic kidney disease, adult type Q61.2 COPD (chronic obstructive pulmonary disease) J44.9 ESRD (end stage renal disease) on dialysis N18.6; Z99.2 (3) Respiratory failure Chronicity: acute Respiratory failure complication: hypoxia and hypercapnia Qualified Code(s): J96.01 - Acute respiratory failure with hypoxia; J96.02 - Acute respiratory failure with hypercapnia (4) Sepsis Acute respiratory failure type: with hypercapnia Sepsis acute organ dysfunction status: with acute organ dysfunction Sepsis type: sepsis due to unspecified organism Severe sepsis acute organ dysfunction type: acute respiratory failure Severe sepsis shock status: unspecified Qualified Code(s): A41.9 - Sepsis, unspecified organism; R65.20 - Severe sepsis without septic shock; J96.02 - Acute respiratory failure with hypercapnia
[2023-03-11] MEDS: HEPARIN SOD 5,000 UNIT/0.5 ML VIAL SQ SCH ×2 (08:09→19:53)
[2023-03-11] MEDS ORDERED: SODIUM CHLORIDE 0.9% IV SCH (09:45)
[2023-03-11] MEDS ORDERED: NOREPINEPHRINE BIT IV SCH (09:45)
[2023-03-11] MEDS: NOREPINEPHRINE BIT IV SCH ×2 (10:06→23:08)
[2023-03-11] MEDS: SODIUM CHLORIDE 0.9% IV SCH ×2 (10:06→23:08)
[2023-03-11] MEDS: PIPERACILLIN/TAZOBACTAM 4.5 GM in DEXTROSE 5% MINI-B 100 ML IV SCH ×2 (10:08→23:08)
[2023-03-11] MEDS: PANTOprazole 40 MG in SYRINGE 0 ML IV SCH (10:09)
--- NOTE | 2023-03-11 11:45 | Pharmacy Report ---
Pharmacy PK ABX Note - Date of Service March 11, 2023 - Assessment and Plan Assessment 03/09: 57 year old F receiving for treatment of vancomycin and zosyn empirically for possible lung source or line infection (left IJ). Patient was receiving scheduled outpatient dialysis and became unresponsive. She did complete 2 hours of HD prior to this occurring. Pertinent microbiologic data includes: MRSA Nasal Swab and bcx pending. Given ESRD and unknown plan for continued HD will not re- order after the loading dose today and obtain a random level in the morning. 03/10: Random level this AM, 20.5mcg/mL. Remains intubated and receiving vasopressor support. No dialysis planned for today- vascular consulted for evaluation of L IJ dialysis catheter/possible temp HD cath placement. 03/11: Random level this AM, 17.5mcg/mL Plan for HD cath removal tomorrow. Discussed at rounds- blood cultures NGTD. Will give vancomycin X 1 dose today and then D/c. Day # 3 of antimicrobial therapy. Plan Vancomycin * Random level this AM, 17.5mcg/mL- therapeutic/safe to re-dose. No UOP documented. No plan for HD today. * Vanc 750mg IV X 1 dose now for ~48 h of empiric coverage and then d/c vancomycin
--- NOTE | 2023-03-11 11:54 | Nephrology Progress Note ---
Date of Service March 11, 2023 Assessment & Plan (1) End stage renal disease: (2) Respiratory failure: (3) Hypotension: (4) Anemia: Plan ESRD, on hemodialysis Sunday, Sunday, Sunday, admitted with respiratory failure and hypotension with concern for septic shock. To dialysis yesterday prior to arrival to ER for unresponsiveness during dialysis. Currently on empiric antibiotic coverage. On pressor but generally her blood pressure always runs quite low. Has IJ tunneled dialysis catheter but incision site was open and concern for catheter related infection. --possible dialysis tomorrow after new tunneled dialysis catheter placement. --dose patient's for eGFR less than 10 ml/min Admission and Anticipated Discharge Date Admission Date: March 09, 2023 Mando Meyer was seen and evaluated in ICU this morning. She was still intubated but requiring less pressor support and was awake, responding. Electrolyte has been acceptable, on FiO2 30%. Review of Systems Review of Systems: Review of system was not possible. Physical Exam Cardiovascular: RRR, no murmur, no edema Skin: no rashes, warm and dry Results & Data Vital Signs (Past 12 Hours) Vital Signs Temp Pulse Resp BP BP Pulse Ox O2 Del Method 03/11/23 11:17 80 16 100 03/11/23 10:51 91/51 L 03/11/23 10:17 91/51 L 03/11/23 10:06 98/55 L 03/11/23 10:00 36.8 C 80 16 98 03/11/23 10:00 94/67 L 03/11/23 09:00 36.9 C 80 16 99 03/11/23 09:00 93/68 L 03/11/23 08:10 36.9 C 80 12 99 03/11/23 08:05 36.9 C 80 14 99 03/11/23 08:00 03/11/23 08:00 80 03/11/23 08:00 80 03/11/23 08:00 36.9 C 80 14 100 03/11/23 08:00 107/72 03/11/23 07:56 80 15 100 03/11/23 07:34 Mechanical Vent 03/11/23 07:33 80 03/11/23 07:30 36.9 C 80 14 100 03/11/23 07:30 104/77 03/11/23 07:00 36.9 C 80 14 100 03/11/23 07:00 105/77 03/11/23 06:30 37.0 C 80 14 99 03/11/23 06:30 104/76 03/11/23 06:00 37.1 C 80 14 97 03/11/23 06:00 99/76 L 03/11/23 05:40 103/69 03/11/23 05:40 37.1 C 80 13 94 03/11/23 05:30 37.2 C 80 18 98 03/11/23 05:00 37.2 C 80 14 100 03/11/23 04:30 37.2 C 80 14 100 03/11/23 04:30 126/86 03/11/23 04:00 128/88 03/11/23 04:00 37.2 C 80 14 100 03/11/23 04:00 03/11/23 03:30 124/87 03/11/23 03:30 37.3 C 80 11 L 100 03/11/23 03:27 90 14 100 03/11/23 03:00 37.3 C 80 19 100 03/11/23 03:00 117/85 03/11/23 02:30 122/85 03/11/23 02:30 37.3 C 80 19 100 03/11/23 02:00 122/83 03/11/23 02:00 37.4 C 80 12 100 03/11/23 01:30 116/87 03/11/23 01:00 37.4 C 80 15 100 03/11/23 01:00 132/91 03/11/23 00:30 37.4 C 80 15 100 03/11/23 00:30 130/76 03/11/23 00:00 37.4 C 80 0 L 96 03/11/23 00:00 131/85 03/11/23 00:00 FiO2 03/11/23 11:17 30 03/11/23 10:51 03/11/23 10:17 03/11/23 10:06 03/11/23 10:00 03/11/23 10:00 03/11/23 09:00 03/11/23 09:00 03/11/23 08:10 03/11/23 08:05 03/11/23 08:00 40 03/11/23 08:00 03/11/23 08:00 03/11/23 08:00 03/11/23 08:00 03/11/23 07:56 30 03/11/23 07:34 35 03/11/23 07:33 03/11/23 07:30 03/11/23 07:30 03/11/23 07:00 03/11/23 07:00 03/11/23 06:30 03/11/23 06:30 03/11/23 06:00 03/11/23 06:00 03/11/23 05:40 03/11/23 05:40 03/11/23 05:30 03/11/23 05:00 03/11/23 04:30 03/11/23 04:30 03/11/23 04:00 03/11/23 04:00 03/11/23 04:00 35 03/11/23 03:30 03/11/23 03:30 03/11/23 03:27 35 03/11/23 03:00 03/11/23 03:00 03/11/23 02:30 03/11/23 02:30 03/11/23 02:00 03/11/23 02:00 03/11/23 01:30 03/11/23 01:00 03/11/23 01:00 03/11/23 00:30 03/11/23 00:30 03/11/23 00:00 03/11/23 00:00 03/11/23 00:00 35 PG Care Time/CCT Total # of Minutes Spent Total Time Spent with Patient: Total time spent is greater than 50% in coordination of care (as documented) at patient's floor/unit and/or counseling patient: Coding Level of Care Code 08438 SUB INP/OBS CARE 235MIN Diagnoses End stage renal disease N18.6 Respiratory failure J96.01; J96.02 Chronicity: acute Respiratory failure complication: hypoxia and hypercapnia Hypotension I95.9 Anemia D64.9 (2) Respiratory failure Chronicity: acute Respiratory failure complication: hypoxia and hypercapnia Qualified Code(s): J96.01 - Acute respiratory failure with hypoxia; J96.02 - Acute respiratory failure with hypercapnia
[2023-03-11] MEDS ORDERED: VANCOMYCIN HCL 750 MG in SODIUM CHLORIDE 0.9% 250 ML IV ONE (12:00)
--- NOTE | 2023-03-11 12:29 | Hospitalist Progress Note ---
Date of Service March 11, 2023 Assessment & Plan (1) Septic shock: Plan: source? Aspiration pneumonia versus line sepsis Continue vancomycin and Zosyn follow blood cultures and sputum cultures Continue pressors. Slowly coming off of pressors with improving blood pressures. Diaper Machine Tender on board (2) Complication associated with dialysis catheter: Plan: Exposed left tunneled dialysis catheter Consult vascular surgery Could be a likely source of infection Plan is for the dialysis catheter to be removed tomorrow to be replaced by a new one Follow blood cultures (3) Multifocal pneumonia: Plan: possible aspiration Zosyn+ vancomycin Monitor cultures (4) Hypercapnic respiratory failure: Plan: Now intubated and sedated Ongoing ventilator management per ICU team (5) Macrocytic anemia: Plan: Decreased Hgb 8.5 since December although she has had a prolonged hospitalization since then and has ESRD on dialysis therefore low suspicion of GI bleed however given high dose vasopressor support and history of GERD will continue pantoprazole 40mg IV daily Trend Hgb Type and cross 2 units (6) GERD (gastroesophageal reflux disease): Plan: Pantoprazole 40mg IV daily (7) Hypothyroidism: Plan: TSH normal Continue levothyroxine IV Recent history of myxedema coma (8) Pacemaker: Plan: Previously placed for heart block (9) ESRD (end stage renal disease) on dialysis: Plan: No urgent need for dialysis - received half session on day of admission nephrology on board Plan is to replace dialysis catheter and then dialysis tomorrow. (10) Stress-induced cardiomyopathy: Plan: Left ventricular systolic function is normal Plan VTE Prophyalxis - heparin Diet - NPO full code Admission and Anticipated Discharge Date Admission Date: March 09, 2023 Subjective Patient remains intubated. She is able to nod and shake her head in response to a few questions. Review of Systems Review of Systems: Unobtainable due to endotracheal tube Physical Exam Physical Exam: General: intubated Heart: S1, S2/regular rate and rhythm, no murmur rubs or gallops Lungs: Clear to auscultation bilaterally. Abdomen: Soft/nontender/nondistended. No hepatosplenomegaly Extremities: No clubbing/cyanosis. No edema Behavior: unable to assess Results & Data Results & Data Vital Signs (Past 12 Hours) Vital Signs Temp Pulse Resp BP BP Pulse Ox O2 Del Method 03/11/23 12:00 80 03/11/23 11:17 80 16 100 03/11/23 10:51 91/51 L 03/11/23 10:17 91/51 L 03/11/23 10:06 98/55 L 03/11/23 10:00 36.8 C 80 16 98 03/11/23 10:00 94/67 L 03/11/23 09:00 36.9 C 80 16 99 03/11/23 09:00 93/68 L 03/11/23 08:10 36.9 C 80 12 99 03/11/23 08:05 36.9 C 80 14 99 03/11/23 08:00 03/11/23 08:00 80 03/11/23 08:00 80 03/11/23 08:00 36.9 C 80 14 100 03/11/23 08:00 107/72 03/11/23 07:56 80 15 100 03/11/23 07:34 Mechanical Vent 03/11/23 07:33 80 03/11/23 07:30 36.9 C 80 14 100 03/11/23 07:30 104/77 03/11/23 07:00 36.9 C 80 14 100 03/11/23 07:00 105/77 03/11/23 06:30 37.0 C 80 14 99 03/11/23 06:30 104/76 03/11/23 06:00 37.1 C 80 14 97 03/11/23 06:00 99/76 L 03/11/23 05:40 103/69 03/11/23 05:40 37.1 C 80 13 94 03/11/23 05:30 37.2 C 80 18 98 03/11/23 05:00 37.2 C 80 14 100 03/11/23 04:30 37.2 C 80 14 100 03/11/23 04:30 126/86 03/11/23 04:00 128/88 03/11/23 04:00 37.2 C 80 14 100 03/11/23 04:00 03/11/23 03:30 124/87 03/11/23 03:30 37.3 C 80 11 L 100 03/11/23 03:27 90 14 100 03/11/23 03:00 37.3 C 80 19 100 03/11/23 03:00 117/85 03/11/23 02:30 122/85 03/11/23 02:30 37.3 C 80 19 100 03/11/23 02:00 122/83 03/11/23 02:00 37.4 C 80 12 100 03/11/23 01:30 116/87 03/11/23 01:00 37.4 C 80 15 100 03/11/23 01:00 132/91 03/11/23 00:30 37.4 C 80 15 100 03/11/23 00:30 130/76 FiO2 03/11/23 12:00 03/11/23 11:17 30 03/11/23 10:51 03/11/23 10:17 03/11/23 10:06 03/11/23 10:00 03/11/23 10:00 03/11/23 09:00 03/11/23 09:00 03/11/23 08:10 03/11/23 08:05 03/11/23 08:00 40 03/11/23 08:00 03/11/23 08:00 03/11/23 08:00 03/11/23 08:00 03/11/23 07:56 30 03/11/23 07:34 35 03/11/23 07:33 03/11/23 07:30 03/11/23 07:30 03/11/23 07:00 03/11/23 07:00 03/11/23 06:30 03/11/23 06:30 03/11/23 06:00 03/11/23 06:00 03/11/23 05:40 03/11/23 05:40 03/11/23 05:30 03/11/23 05:00 03/11/23 04:30 03/11/23 04:30 03/11/23 04:00 03/11/23 04:00 03/11/23 04:00 35 03/11/23 03:30 03/11/23 03:30 03/11/23 03:27 35 03/11/23 03:00 03/11/23 03:00 03/11/23 02:30 03/11/23 02:30 03/11/23 02:00 03/11/23 02:00 03/11/23 01:30 03/11/23 01:00 03/11/23 01:00 03/11/23 00:30 03/11/23 00:30 Laboratory Results Abnormal lab results 03/10/23 03/11/23 03/11/23 Range/Units 16:00 03:35 03:38 RBC (4.20-5.40) M/uL Hgb (12.0-16.0) g/dl POC Hgb 11.6 L (12.0-16.0) g/dl Hct (37.0-47.0) % POC Hct 34 L (37-47) % MCHC (32.0-36.0) g/dL RDW Std Deviation (36.4-46.3) fL RDW Coeff of Ya (11.5-14.5) % Neut # (Auto) (1.40-6.50) K/uL Lymph # (Auto) (1.20-3.40) K/uL POC pH 7.34 L (7.35-7.45) POC pO2 70 L (80-95) mmHg POC Total CO2 23 L (24-31) mmol/L ABG pH (Temp Correct) 7.337 L (7.35-7.45) POC Sodium 125 L (135-144) mmol/L Sodium (136-145) mmol/L Chloride (98-107) mmol/L Carbon Dioxide (21-32) mmol/L Anion Gap (3-11) BUN (6-23) mg/dl Creatinine (0.6-1.2) mg/dl BUN/Creatinine Ratio (10-20) Glucose (70-99(Fasting)) mg/dl POC Glucose (other) 135 H 143 H (70-99) mg/dl Calcium (8.6-10.3) mg/dl 03/11/23 03/11/23 03/11/23 Range/Units 03:55 08:05 12:11 RBC 3.44 L (4.20-5.40) M/uL Hgb 10.1 L (12.0-16.0) g/dl POC Hgb (12.0-16.0) g/dl Hct 32.8 L (37.0-47.0) % POC Hct (37-47) % MCHC 30.8 L (32.0-36.0) g/dL RDW Std Deviation 62.1 H (36.4-46.3) fL RDW Coeff of Ya 17.9 H (11.5-14.5) % Neut # (Auto) 8.67 H (1.40-6.50) K/uL Lymph # (Auto) 0.80 L (1.20-3.40) K/uL POC pH (7.35-7.45) POC pO2 (80-95) mmHg POC Total CO2 (24-31) mmol/L ABG pH (Temp Correct) (7.35-7.45) POC Sodium (135-144) mmol/L Sodium 127 L (136-145) mmol/L Chloride 93 L (98-107) mmol/L Carbon Dioxide 20 L (21-32) mmol/L Anion Gap 14 H (3-11) BUN 26 H (6-23) mg/dl Creatinine 3.93 H D (0.6-1.2) mg/dl BUN/Creatinine Ratio 6.6 L (10-20) Glucose 140 H (70-99(Fasting)) mg/dl POC Glucose (other) 139 H 123 H (70-99) mg/dl Calcium 7.1 L (8.6-10.3) mg/dl PG Care Time/CCT Total # of Minutes Spent Total Time Spent with Patient: Total time spent is greater than 50% in coordination of care (as documented) at patient's floor/unit and/or counseling patient: Coding Level of Care Code 76257 SUB INP/OBS CARE 2/35MIN Diagnoses Septic shock A41.9; R65.21 Complication associated with dialysis catheter T82.9XXA Multifocal pneumonia J18.9 Hypercapnic respiratory failure J96.92 Macrocytic anemia D53.9 GERD (gastroesophageal reflux disease) K21.9 Hypothyroidism E03.9 Pacemaker Z95.0 ESRD (end stage renal disease) on dialysis N18.6; Z99.2 Stress-induced cardiomyopathy I51.81
[2023-03-11] MEDS: NOVASOURCE RENAL 2.0 CAL 1000ML BAG OG SCH (15:25)
[2023-03-12] MEDS: INSULIN ASPART PER UNIT CHARGE SC SCH ×4 (00:16→18:52)
[2023-03-12] MEDS: TUBE FEEDING WATER FLUSH OG SCH ×4 (02:00→15:38)
[2023-03-12] MEDS: VASOPRESSIN 20 UNITS in 0.9 % SODIUM CHLORIDE 100 ML IV SCH ×4 (03:56→20:33)
[2023-03-12] MEDS: propofoL 1,000 MG/100 ML VIAL IV SCH (03:56)
[2023-03-12] MEDS: NOREPINEPHRINE BIT IV SCH ×16 (03:57→21:59)
[2023-03-12] MEDS: SODIUM CHLORIDE 0.9% IV SCH ×16 (03:57→21:59)
[2023-03-12 05:50] LABS: iSTAT Art Bld Gas pCO2 Correct 35 mmHg (35-46); iSTAT Art Bld Gas pH Corrected 7.349 (7.35-7.45); iSTAT Arterial Blood Gas HCO3 19 meg/L (19-24); iSTAT Arterial Blood Gas pCO2 35 mmHg (35-46); iSTAT Arterial Blood Gas pH 7.35 (7.35-7.45); iSTAT Arterial Blood Gas pO2 64 mmHg (80-95); iSTAT Arterial Blood Gas pO2 C 63; iSTAT Carbon Dioxide 20 mmol/L (24-31); iSTAT FiO2 30 %; iSTAT Hematocrit 33 % (37-47); iSTAT Hemoglobin 11.2 g/dl (12.0-16.0); iSTAT Site Art Line; iSTAT Sodium 122 mmol/L (135-144)
[2023-03-12] MEDS: fentaNYL citrate 2,500 MCG/250 ML BAG IV SCH ×2 (06:17→12:00)
[2023-03-12 06:51] LABS: Hematocrit (blood only) 32.8 % (37.0-47.0); Immature Granulocytes # (auto) 0.04 K/uL (0.01-0.20); Immature Granulocytes % (auto) 0.5 %; Lymphocytes % (auto) 13.7 %; Mean Corpuscular Hemoglobin 28.9 pg (25.0-34.0); Mean Corpuscular Hgb Conc 30.5 g/dL (32.0-36.0); Mean Corpuscular Volume 94.8 fL (80.0-100.0); Mean Platelet Volume 9.8 fL (9.4-12.4); Monocytes # (auto) 0.59 K/uL (0.11-0.59); Monocytes % (auto) 6.8 %; Platelet Count 194 K/uL (130-400); RDW Coefficient of Variation 17.7 % (11.5-14.5); RDW Standard Deviation 60.6 fL (36.4-46.3); Red Blood Count 3.46 M/uL (4.20-5.40); White Blood Count 8.73 K/ul (4.8-10.8)
[2023-03-12 07:19] LABS: BUN Creatinine Ratio 9.2 (10-20); Calcium 7.1 mg/dl (8.6-10.3); Creatinine Clr Calc Pharmacy 14.5 ml/min; Est GFR (African American) 11.8 ml/min; Est GFR (Non-African American) 10.2 ml/min; Magnesium 2.4 mg/dl (1.7-2.4); Phosphorus 4.8 mg/dl (2.5-4.9); Potassium 4.9 mmol/L (3.5-5.1)
--- NOTE | 2023-03-12 08:12 | XRay Report ---
XR chest 1V portable CLINICAL HISTORY: Resp failure TECHNIQUE: Single frontal radiograph of the chest was obtained. Comparison: Comparison is made to chest radiograph 03/10/2023 FINDINGS: Lines and tubes are stable. The cardiomediastinal silhouette is stable. Small right airspace opacitie s are seen. No evidence of pleural effusion or pneumothorax. IMPRESSION: Small right airspace opacities are seen. These may represent atelectasis, pneumonia, and/or aspiratio n. ACT 112: Negative or not required by law. Electronically signed by: Robinson Aguila M.D. 03/12/2023 8:10 AM
--- NOTE | 2023-03-12 08:27 | Critical Care Progress Note ---
Date of Service March 12, 2023 Assessment & Plan (1) Shock circulatory: (2) Respiratory failure: (3) Sepsis: (4) Hypercapnic respiratory failure: (5) Hypoxemic respiratory failure, chronic: (6) Anxiety and depression: (7) Hypothyroidism: (8) GERD (gastroesophageal reflux disease): (9) Cigarette nicotine dependence: (10) Bipolar disorder: (11) Polycystic kidney disease, adult type: (12) COPD (chronic obstructive pulmonary disease): (13) ESRD (end stage renal disease) on dialysis: Plan Patient seen and examined in the ICU. Discussed on rounds with the nurse and respiratory therapist. She is much more responsive today despite propofol and fentanyl. She continues to have episodes of hypotension and is requiring Levophed and vasopressin. I discussed with the patient's informatics developer regarding dialysis. We will attempt to use the tunneled hemodialysis catheter today for dialysis as it has been 4 days since her last dialysis session. We will then need removal of dialysis line after hemodialysis. Will likely need subsequent tunneled HD catheter after removal for ongoing hemodialysis. Given her underlying hypotension, will add midodrine to help offload IV vasoactive medications. We will discontinue hydrocortisone. There is concern of possible myxedema coma, but unlikely as the TSH was 2.5 on admission. Continue levothyroxine. We will perform spontaneous breathing trial and possibly extubate later today after hemodialysis. Cultures negative thus far. Patient being treated for presumptive line sepsis despite negative cultures. Continue Zosyn. Other possibilities include aspiration pneumonitis/pneumonia. CRITICAL CARE TIME - I have personally spent 43 minutes of critical care time in the direct management of this patient. This is a life/limb threatening event. This includes time spent evaluating patient, direct bedside care, chart review, placing orders, interpretation of diagnostic studies, discussion with consultants, patient, and family members, as well as other required patient management activities. This time is exclusive of all separately billable procedures, and teaching time and separate from and in addition to any other critical care service time. Admission and Anticipated Discharge Date Admission Date: March 09, 2023 Subjective Patient seen and examined. She is currently on low-dose of propofol fentanyl. She is following simple commands. She denies any chest pain. She does appear anxious. She is currently on low-dose of Levophed and vasopressin. Review of Systems Review of Systems: Unobtainable due to endotracheal tube Physical Exam Physical Exam: Constitutional: No acute distress HEENT: PERRLA, positive ETT Respiratory system: Decreased air entry bilaterally, no wheeze, rhonchi, positive crackles bilateral lower lobes CVS: S1-S2 positive, Positive 2 out of 6 systolic murmur appreciated best at aorta Abdomen: Soft, nontender, nondistended, positive bowel sounds x4, supraumbilical hernia appreciated Extremities: Decreased pulses bilaterally radialis/ dorsalis pedis, no cyanosis, +1 pitting edema bilateral lower extremity Neuro: Intubated, sedated, RASS -1, moving all extremities on command Psych: Unable to assess G/U: No Pandey Lines: Left-sided permacath, there is an opening at the proximal site of the tunneled catheter Skin: no rashes, warm and dry Lymphatic: no cervical or axillary lymphadenopathy Results & Data Results & Data Vital Signs (Past 12 Hours) Vital Signs Temp Pulse Resp BP Pulse Ox FiO2 03/12/23 06:55 36.7 C 80 14 100 03/12/23 06:50 36.7 C 80 16 97 03/12/23 06:45 36.7 C 80 16 99 03/12/23 06:40 36.7 C 80 16 100 03/12/23 06:35 36.7 C 80 16 99 03/12/23 06:30 110/60 03/12/23 06:30 36.8 C 89 16 98 03/12/23 06:25 36.8 C 80 15 97 03/12/23 06:20 36.8 C 80 16 98 03/12/23 06:15 36.8 C 80 16 100 03/12/23 06:10 36.8 C 80 14 97 03/12/23 06:05 36.8 C 80 16 99 03/12/23 06:00 36.8 C 80 16 99 03/12/23 06:00 91/67 L 03/12/23 05:55 36.8 C 80 14 97 03/12/23 05:50 36.9 C 80 16 97 03/12/23 05:45 36.9 C 80 16 97 03/12/23 05:40 36.9 C 80 15 92 03/12/23 05:35 36.8 C 85 16 97 03/12/23 05:31 36.8 C 80 15 92 03/12/23 05:31 103/77 03/12/23 05:30 36.8 C 80 17 93 03/12/23 05:25 36.8 C 84 14 96 03/12/23 05:20 36.8 C 77 16 100 03/12/23 05:15 36.8 C 80 16 100 03/12/23 05:10 36.8 C 80 14 100 03/12/23 05:05 36.8 C 80 16 100 03/12/23 05:00 36.9 C 80 16 100 03/12/23 05:00 97/73 L 03/12/23 04:55 36.8 C 80 14 100 03/12/23 04:50 36.9 C 80 16 100 03/12/23 04:45 36.9 C 80 16 100 03/12/23 04:40 36.9 C 80 14 100 03/12/23 04:35 36.9 C 80 16 100 03/12/23 04:30 36.8 C 80 16 100 03/12/23 04:30 97/72 L 03/12/23 04:25 36.9 C 80 14 100 03/12/23 04:20 36.9 C 80 16 100 03/12/23 04:15 36.9 C 80 16 100 03/12/23 04:10 36.9 C 80 14 100 03/12/23 04:05 36.9 C 80 16 100 03/12/23 04:00 36.9 C 80 16 99 03/12/23 04:00 97/72 L 03/12/23 04:00 30 03/12/23 03:55 36.9 C 80 14 98 03/12/23 03:50 36.9 C 80 16 100 03/12/23 03:45 36.9 C 80 16 100 03/12/23 03:40 36.9 C 80 14 100 03/12/23 03:35 36.9 C 80 16 100 03/12/23 03:30 36.9 C 80 16 100 03/12/23 03:30 99/71 L 03/12/23 03:25 36.9 C 80 14 100 03/12/23 03:20 36.9 C 80 16 100 03/12/23 03:15 36.9 C 80 16 100 03/12/23 03:10 36.9 C 80 14 100 03/12/23 03:05 36.9 C 80 16 100 03/12/23 03:05 80 16 100 30 03/12/23 03:00 96/72 L 03/12/23 03:00 36.9 C 80 16 100 03/12/23 02:55 36.9 C 80 14 100 03/12/23 02:50 36.9 C 80 16 100 03/12/23 02:45 36.9 C 80 16 99 03/12/23 02:40 36.9 C 80 14 99 03/12/23 02:35 36.9 C 80 16 100 03/12/23 02:30 36.9 C 80 16 100 03/12/23 02:30 96/71 L 03/12/23 02:25 36.9 C 80 14 100 03/12/23 02:20 36.9 C 80 16 100 03/12/23 02:15 36.9 C 80 16 99 03/12/23 02:10 36.9 C 80 14 98 03/12/23 02:05 36.9 C 80 16 98 03/12/23 02:00 95/71 L 03/12/23 02:00 36.9 C 80 16 99 03/12/23 01:55 36.9 C 80 14 100 03/12/23 01:50 36.9 C 80 16 100 03/12/23 01:45 36.9 C 80 16 99 03/12/23 01:40 36.9 C 80 14 100 03/12/23 01:35 36.9 C 80 16 100 03/12/23 01:30 36.9 C 80 16 100 03/12/23 01:30 95/71 L 03/12/23 01:25 37.0 C 80 14 99 03/12/23 01:20 37.0 C 80 16 99 03/12/23 01:15 37.0 C 80 16 100 03/12/23 01:10 37.0 C 80 14 100 03/12/23 01:05 37.0 C 80 16 100 03/12/23 01:00 37.0 C 80 16 100 03/12/23 01:00 96/70 L 03/12/23 00:55 37.0 C 80 14 99 03/12/23 00:50 37.0 C 80 16 99 03/12/23 00:45 37.0 C 80 16 99 03/12/23 00:40 37.0 C 80 14 99 03/12/23 00:35 37.0 C 80 16 100 03/12/23 00:30 37.0 C 80 16 100 03/12/23 00:30 95/72 L 03/12/23 00:25 37.0 C 80 13 100 03/12/23 00:20 37.0 C 80 16 100 03/12/23 00:15 37.1 C 80 16 100 03/12/23 00:10 37.1 C 80 13 99 03/12/23 00:05 37.1 C 80 16 99 03/12/23 00:00 97/72 L 03/12/23 00:00 37.1 C 80 16 100 03/12/23 00:00 35 03/12/23 00:00 80 03/11/23 23:55 37.1 C 80 14 99 03/11/23 23:50 37.1 C 80 16 99 03/11/23 23:45 37.1 C 80 16 100 03/11/23 23:40 37.1 C 80 16 100 03/11/23 23:35 37.1 C 80 16 100 03/11/23 23:30 100/67 03/11/23 23:30 37.1 C 80 16 100 03/11/23 23:25 37.1 C 80 16 100 03/11/23 23:20 37.1 C 80 16 100 03/11/23 23:15 37.1 C 80 16 100 03/11/23 23:10 37.2 C 80 16 100 03/11/23 23:05 37.2 C 80 16 100 03/11/23 23:00 80 16 100 30 03/11/23 23:00 37.2 C 80 16 100 03/11/23 23:00 100/68 03/11/23 22:55 37.2 C 80 16 100 03/11/23 22:50 37.2 C 80 16 100 03/11/23 22:45 37.2 C 80 16 100 03/11/23 22:40 37.2 C 80 16 100 03/11/23 22:35 37.2 C 80 16 100 03/11/23 22:30 37.2 C 80 16 100 03/11/23 22:30 98/70 L 03/11/23 22:25 37.2 C 80 16 100 03/11/23 22:20 37.2 C 80 16 100 03/11/23 22:15 37.2 C 80 16 100 03/11/23 22:10 37.2 C 80 16 100 03/11/23 22:05 37.2 C 80 16 100 03/11/23 22:00 37.2 C 80 16 100 03/11/23 22:00 101/70 03/11/23 21:55 37.2 C 80 16 99 03/11/23 21:50 37.2 C 80 16 99 03/11/23 21:45 37.2 C 80 16 99 03/11/23 21:40 37.2 C 80 16 99 03/11/23 21:35 37.2 C 80 16 99 03/11/23 21:30 37.3 C 80 16 100 03/11/23 21:30 96/70 L 03/11/23 21:25 37.2 C 80 16 100 03/11/23 21:20 37.2 C 80 16 99 03/11/23 21:15 37.2 C 80 18 96 03/11/23 21:10 37.2 C 80 16 97 03/11/23 21:05 37.2 C 81 16 100 03/11/23 21:00 37.2 C 80 16 100 03/11/23 21:00 94/70 L 03/11/23 20:55 37.2 C 80 16 100 03/11/23 20:50 37.2 C 80 16 100 03/11/23 20:35 37.2 C 80 16 100 03/11/23 20:30 37.2 C 80 16 100 03/11/23 20:30 93/70 L Coding Level of Care Code 86389 CRITICAL CARE 1ST 30-74M Diagnoses Shock circulatory R57.9 Respiratory failure J96.01; J96.02 Chronicity: acute Respiratory failure complication: hypoxia and hypercapnia Sepsis A41.9; R65.20; J96.02 Acute respiratory failure type: with hypercapnia Sepsis acute organ dysfunction status: with acute organ dysfunction Sepsis type: sepsis due to unspecified organism Severe sepsis acute organ dysfunction type: acute respiratory failure Severe sepsis shock status: unspecified Hypercapnic respiratory failure J96.92 Hypoxemic respiratory failure, chronic J96.11 Anxiety and depression F41.9; F32.9 Hypothyroidism E03.9 GERD (gastroesophageal reflux disease) K21.9 Cigarette nicotine dependence F17.210 Bipolar disorder F31.9 Polycystic kidney disease, adult type Q61.2 COPD (chronic obstructive pulmonary disease) J44.9 ESRD (end stage renal disease) on dialysis N18.6; Z99.2 Time Spent (min) 43 (2) Respiratory failure Chronicity: acute Respiratory failure complication: hypoxia and hypercapnia Qualified Code(s): J96.01 - Acute respiratory failure with hypoxia; J96.02 - Acute respiratory failure with hypercapnia (3) Sepsis Acute respiratory failure type: with hypercapnia Sepsis acute organ dysfunction status: with acute organ dysfunction Sepsis type: sepsis due to unspecified organism Severe sepsis acute organ dysfunction type: acute respiratory failure Severe sepsis shock status: unspecified Qualified Code(s): A41.9 - Sepsis, unspecified organism; R65.20 - Severe sepsis without septic shock; J96.02 - Acute respiratory failure with hypercapnia
[2023-03-12] MEDS: HEPARIN SOD 5,000 UNIT/0.5 ML VIAL SQ SCH ×2 (09:16→21:58)
[2023-03-12] MEDS: PROPOFOL BOLUS FROM BAG IV PRN (09:22)
[2023-03-12] MEDS: HYDROCORTISONE SOD 50 MG in SYRINGE 0 ML IV SCH (09:22)
--- NOTE | 2023-03-12 10:26 | Nephrology Progress Note ---
Date of Service March 12, 2023 Assessment & Plan (1) End stage renal disease: (2) Respiratory failure: (3) Hypotension: (4) Anemia: Plan ESRD, on hemodialysis Sunday, Sunday, Sunday, admitted with respiratory failure and hypotension with concern for septic shock. To dialysis yesterday prior to arrival to ER for unresponsiveness during dialysis. Currently on empiric antibiotic coverage. On pressor but generally her blood pressure always runs quite low. Has IJ tunneled dialysis catheter but incision site was open and concern for catheter related infection. Overall doing better, still intubated, minimum pressor. TDC area exposed at incision site but no erythema, drainage --dialysis today via tunneled dialysis catheter, UF as tolerated, her BP generally runs low. --dose patient's for eGFR less than 10 ml/min Admission and Anticipated Discharge Date Admission Date: March 09, 2023 Mando Meyer was seen and evaluated in ICU this morning. She was still intubated but requiring less pressor support and was awake, alert, responding, c/o discomfort with ET tube. Na low, K normal, no F/C, blood culture negative, on FiO2 30%. Review of Systems Review of Systems: Review of system was not possible. Physical Exam Constitutional: + ill appearing and + mechanically venti lated Respiratory: Auscultation: + diminished lung sounds Cardiovascular: RRR, no murmur, no edema Rate/Rhythm: regular rate and regular rhythm Heart Sounds: normal S1 and normal S2 Extremities: no edema Skin: no rashes, warm and dry Neurologic: moves all extremities, communicates by writing Results & Data Vital Signs (Past 12 Hours) Vital Signs Temp Pulse Resp BP Pulse Ox FiO2 03/12/23 06:55 36.7 C 80 14 100 03/12/23 06:50 36.7 C 80 16 97 03/12/23 06:45 36.7 C 80 16 99 03/12/23 06:40 36.7 C 80 16 100 03/12/23 06:35 36.7 C 80 16 99 03/12/23 06:30 110/60 03/12/23 06:30 36.8 C 89 16 98 03/12/23 06:25 36.8 C 80 15 97 03/12/23 06:20 36.8 C 80 16 98 03/12/23 06:15 36.8 C 80 16 100 03/12/23 06:10 36.8 C 80 14 97 03/12/23 06:05 36.8 C 80 16 99 03/12/23 06:00 36.8 C 80 16 99 03/12/23 06:00 91/67 L 03/12/23 05:55 36.8 C 80 14 97 03/12/23 05:50 36.9 C 80 16 97 03/12/23 05:45 36.9 C 80 16 97 03/12/23 05:40 36.9 C 80 15 92 03/12/23 05:35 36.8 C 85 16 97 03/12/23 05:31 36.8 C 80 15 92 03/12/23 05:31 103/77 03/12/23 05:30 36.8 C 80 17 93 03/12/23 05:25 36.8 C 84 14 96 03/12/23 05:20 36.8 C 77 16 100 03/12/23 05:15 36.8 C 80 16 100 03/12/23 05:10 36.8 C 80 14 100 03/12/23 05:05 36.8 C 80 16 100 03/12/23 05:00 36.9 C 80 16 100 03/12/23 05:00 97/73 L 03/12/23 04:55 36.8 C 80 14 100 03/12/23 04:50 36.9 C 80 16 100 03/12/23 04:45 36.9 C 80 16 100 03/12/23 04:40 36.9 C 80 14 100 03/12/23 04:35 36.9 C 80 16 100 03/12/23 04:30 36.8 C 80 16 100 03/12/23 04:30 97/72 L 03/12/23 04:25 36.9 C 80 14 100 03/12/23 04:20 36.9 C 80 16 100 03/12/23 04:15 36.9 C 80 16 100 03/12/23 04:10 36.9 C 80 14 100 03/12/23 04:05 36.9 C 80 16 100 03/12/23 04:00 36.9 C 80 16 99 03/12/23 04:00 97/72 L 03/12/23 04:00 30 03/12/23 03:55 36.9 C 80 14 98 03/12/23 03:50 36.9 C 80 16 100 03/12/23 03:45 36.9 C 80 16 100 03/12/23 03:40 36.9 C 80 14 100 03/12/23 03:35 36.9 C 80 16 100 03/12/23 03:30 36.9 C 80 16 100 03/12/23 03:30 99/71 L 03/12/23 03:25 36.9 C 80 14 100 03/12/23 03:20 36.9 C 80 16 100 03/12/23 03:15 36.9 C 80 16 100 03/12/23 03:10 36.9 C 80 14 100 03/12/23 03:05 36.9 C 80 16 100 03/12/23 03:05 80 16 100 30 03/12/23 03:00 96/72 L 03/12/23 03:00 36.9 C 80 16 100 03/12/23 02:55 36.9 C 80 14 100 03/12/23 02:50 36.9 C 80 16 100 03/12/23 02:45 36.9 C 80 16 99 03/12/23 02:40 36.9 C 80 14 99 03/12/23 02:35 36.9 C 80 16 100 03/12/23 02:30 36.9 C 80 16 100 03/12/23 02:30 96/71 L 03/12/23 02:25 36.9 C 80 14 100 03/12/23 02:20 36.9 C 80 16 100 03/12/23 02:15 36.9 C 80 16 99 03/12/23 02:10 36.9 C 80 14 98 03/12/23 02:05 36.9 C 80 16 98 03/12/23 02:00 95/71 L 03/12/23 02:00 36.9 C 80 16 99 03/12/23 01:55 36.9 C 80 14 100 03/12/23 01:50 36.9 C 80 16 100 03/12/23 01:45 36.9 C 80 16 99 03/12/23 01:40 36.9 C 80 14 100 03/12/23 01:35 36.9 C 80 16 100 03/12/23 01:30 36.9 C 80 16 100 03/12/23 01:30 95/71 L 03/12/23 01:25 37.0 C 80 14 99 03/12/23 01:20 37.0 C 80 16 99 03/12/23 01:15 37.0 C 80 16 100 03/12/23 01:10 37.0 C 80 14 100 03/12/23 01:05 37.0 C 80 16 100 03/12/23 01:00 37.0 C 80 16 100 03/12/23 01:00 96/70 L 03/12/23 00:55 37.0 C 80 14 99 03/12/23 00:50 37.0 C 80 16 99 03/12/23 00:45 37.0 C 80 16 99 03/12/23 00:40 37.0 C 80 14 99 03/12/23 00:35 37.0 C 80 16 100 03/12/23 00:30 37.0 C 80 16 100 03/12/23 00:30 95/72 L 03/12/23 00:25 37.0 C 80 13 100 03/12/23 00:20 37.0 C 80 16 100 03/12/23 00:15 37.1 C 80 16 100 03/12/23 00:10 37.1 C 80 13 99 03/12/23 00:05 37.1 C 80 16 99 03/12/23 00:00 97/72 L 03/12/23 00:00 37.1 C 80 16 100 03/12/23 00:00 35 03/12/23 00:00 80 03/11/23 23:55 37.1 C 80 14 99 03/11/23 23:50 37.1 C 80 16 99 03/11/23 23:45 37.1 C 80 16 100 03/11/23 23:40 37.1 C 80 16 100 03/11/23 23:35 37.1 C 80 16 100 03/11/23 23:30 100/67 03/11/23 23:30 37.1 C 80 16 100 03/11/23 23:25 37.1 C 80 16 100 03/11/23 23:20 37.1 C 80 16 100 03/11/23 23:15 37.1 C 80 16 100 03/11/23 23:10 37.2 C 80 16 100 03/11/23 23:05 37.2 C 80 16 100 03/11/23 23:00 80 16 100 30 03/11/23 23:00 37.2 C 80 16 100 03/11/23 23:00 100/68 03/11/23 22:55 37.2 C 80 16 100 03/11/23 22:50 37.2 C 80 16 100 03/11/23 22:45 37.2 C 80 16 100 03/11/23 22:40 37.2 C 80 16 100 03/11/23 22:35 37.2 C 80 16 100 03/11/23 22:30 37.2 C 80 16 100 03/11/23 22:30 98/70 L 03/11/23 22:25 37.2 C 80 16 100 PG Care Time/CCT Total # of Minutes Spent Total Time Spent with Patient: Total time spent is greater than 50% in coordination of care (as documented) at patient's floor/unit and/or counseling patient: Coding Level of Care Code 78747 SUB INP/OBS CARE MIN Diagnoses End stage renal disease N18.6 Respiratory failure J96.01; J96.02 Chronicity: acute Respiratory failure complication: hypoxia and hypercapnia Hypotension I95.9 Anemia D64.9 (2) Respiratory failure Chronicity: acute Respiratory failure complication: hypoxia and hypercapnia Qualified Code(s): J96.01 - Acute respiratory failure with hypoxia; J96.02 - Acute respiratory failure with hypercapnia
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
[2023-03-12] MEDS: PANTOprazole 40 MG in SYRINGE 0 ML IV SCH (12:00)
[2023-03-12] MEDS: PIPERACILLIN/TAZOBACTAM 4.5 GM in DEXTROSE 5% MINI-B 100 ML IV SCH ×2 (12:00→21:58)
[2023-03-12] MEDS ORDERED: PROPOFOL BOLUS FROM BAG IV PRN ×2 (12:12→12:48)
[2023-03-12] MEDS ORDERED: STAT IV Infusion **Titration per Protocol STA ×2 (12:12→12:48)
[2023-03-12] MEDS ORDERED: propofoL 1,000 MG/100 ML VIAL IV SCH ×2 (12:15→12:49)
[2023-03-12] MEDS: MIDODRINE HCL 2.5 MG TAB PO SCH ×2 (12:15→16:43)
[2023-03-12] MEDS ORDERED: PROPOFOL IV EMULSION 10 MG/ML 100 ML VIAL IV ONE (12:17)
--- NOTE | 2023-03-12 14:10 | Pharmacy Report ---
Pharmacy Glycemic Short Note 2 - Date of Service March 12, 2023 - Glycemic Short BSG Results (Last 24 hours): 03/11/23 03/11/23 03/11/23 00:21 16:31 20:13 Glucose POC Glucose (other) 139 H 114 H 119 H 03/11/23 03/12/23 03/12/23 23:26 05:55 06:38 Glucose 124 H POC Glucose (other) 125 H 122 H 03/12/23 12:39 Glucose POC Glucose (other) 120 H OUTPATIENT ANTIDIABETIC REGIMEN: * Diet-controlled borderline T2DM diabetes per PMH * Patient's A1c = 4.2% (03/10/23) * However, this result is likely somewhat unreliable in ESRD patients d/t interactions between the A1c analyzing technique and high levels of urea in ESRD, reduced RBC life span, iron deficiency anemia, and EPO administration. HbA1c > 7.5% in ESRD patient may overestimate the extent of hyperglycemia in ESRD patients. ASSESSMENT: 03/12 * BSGs have been stable over the past 24 hours with no insulin administration, [phone] mg/dL * BSG this morning 122 mg/dL * TF at 10 ml/hr, hydrocortisone d/c this morning, intubated on norepinephrine * Removed carb coverage this morning, monitor if needed to be added back 03/10 * JW is a 57 year old female admitted to ICU on 03/09/23 w/ septic shock secondary to multifocal pneumonia * PMH includes ESRD (HD on MWF) and borderline T2DM (HbA1c unreliable in light of ESRD and macrocytic anemia) * Receiving hydrocortisone 50 mg IV q8h * Will be conservative with initial insulin dosing, given no antidiabetic medications/insulin at home PLAN FOR INPATIENT GLYCEMIC CONTROL: * Basal insulin * hold * Bolus insulin * NovoLog per scale ACHS or Q6hrs while NPO * Goal Range: Low 110 mg/dL - High 140 mg/dL * Correction Factor: 40 mg/dL/unit * Nutritional / Prandial insulin per carb ratio of 1 unit per -- grams CHO consumed
--- NOTE | 2023-03-12 18:18 | Hospitalist Progress Note ---
Date of Service March 12, 2023 Assessment & Plan (1) Septic shock: Plan: source? Aspiration pneumonia versus line sepsis ECHO with preserved LVEF, right sided HF now extubated, remains on 2 pressors and midodrine, dcd IV HC Cultures of sputum and blood NGTD, is afebrile Continue vancomycin and Zosyn follow blood cultures and sputum cultures Continue pressors [employer] on board (2) Complication associated with dialysis catheter: Plan: Exposed left tunneled dialysis catheter Consult vascular surgery appreciated-plan to remove TIJ and replace possibly tomorrow Could be a likely source of infection Follow blood cultures (3) Multifocal pneumonia: Plan: possible aspiration Zosyn+ vancomycin Monitor cultures (4) Hypercapnic respiratory failure: Plan: Now extubated wean off O2 as able (5) Macrocytic anemia: Plan: Decreased Hgb 8.5-10 since December although she has had a prolonged hospitalization since then and has ESRD on dialysis therefore low suspicion of GI bleed however given high dose vasopressor support and history of GERD will continue pantoprazole 40mg IV daily Trend Hgb Type and cross 2 units B12, folate and Fe studies all normal except Fe sat slightly low at 11% TSH now normal follow CBC (6) GERD (gastroesophageal reflux disease): Plan: Pantoprazole 40mg IV daily (7) Hypothyroidism: Plan: TSH normal Continue levothyroxine IV Recent history of myxedema coma which is now resolved (8) Pacemaker: Plan: Previously placed for heart block (9) ESRD (end stage renal disease) on dialysis: Plan: Nephrology on board now receiving HD 03/12 Plan is to replace dialysis catheter (10) Stress-induced cardiomyopathy: Plan: Left ventricular systolic function is normal but with right sided HF Plan VTE Prophyalxis - heparin Diet - adv as tolerated s/p extubation full code Admission and Anticipated Discharge Date Admission Date: March 09, 2023 Subjective Extubated this AM. Remains on 2 pressors, started on midodrine. Receiving HD when I saw her in the evening. Has no complaints Physical Exam Constitutional: WD/WN, vitals as above Respiratory: normal respiratory effort Psychiatric: Orientation: alert and cooperative Results & Data Results & Data Vital Signs (Past 12 Hours) Vital Signs Temp Pulse Pulse Resp BP Pulse Ox O2 Del Method 03/12/23 18:00 80 93/55 L 03/12/23 17:45 80 80/55 L 03/12/23 17:30 37.1 C 80 03/12/23 17:30 80/55 L 03/12/23 17:30 37.1 C 80 20 100 03/12/23 17:00 89/65 L 03/12/23 17:00 37.0 C 80 13 96 Mechanical Vent 03/12/23 16:30 93/62 L 03/12/23 16:30 37.0 C 80 14 100 03/12/23 16:14 85/58 L 03/12/23 16:14 37.0 C 80 16 99 03/12/23 16:00 82/58 L 03/12/23 16:00 37.0 C 80 16 99 03/12/23 15:38 80 12 100 03/12/23 15:30 37.0 C 80 11 L 99 03/12/23 15:30 87/64 L 03/12/23 15:00 37.0 C 80 12 100 03/12/23 15:00 94/65 L 03/12/23 14:30 36.9 C 80 10 L 100 03/12/23 14:30 92/61 L 03/12/23 14:00 36.9 C 80 10 L 100 03/12/23 14:00 84/61 L 03/12/23 13:30 36.9 C 80 12 100 03/12/23 13:30 88/65 L 03/12/23 13:00 92/67 L 03/12/23 13:00 36.9 C 80 15 100 03/12/23 12:30 88/65 L 03/12/23 12:30 36.9 C 80 10 L 99 03/12/23 12:00 96/58 L 03/12/23 12:00 36.9 C 80 16 95 03/12/23 12:00 03/12/23 11:30 88/64 L 03/12/23 11:30 36.9 C 80 13 99 03/12/23 11:00 89/63 L 03/12/23 11:00 36.9 C 80 13 100 03/12/23 10:30 36.9 C 80 16 99 03/12/23 10:30 93/60 L 03/12/23 10:25 80 14 98 03/12/23 10:00 36.9 C 80 16 100 03/12/23 10:00 93/68 L 12/04/23 09:30 36.8 C 80 16 100 03/12/23 09:30 93/68 L 03/12/23 09:00 36.8 C 80 18 99 03/12/23 09:00 99/70 L 03/12/23 08:30 36.8 C 80 16 99 03/12/23 08:30 99/69 L 03/12/23 08:00 90/68 L 03/12/23 08:00 36.8 C 80 16 100 Mechanical Vent 03/12/23 07:55 80 16 100 03/12/23 07:30 36.8 C 80 16 99 03/12/23 07:30 95/70 L 03/12/23 07:00 95/71 L 03/12/23 07:00 36.7 C 74 16 100 03/12/23 06:55 36.7 C 80 14 100 03/12/23 06:50 36.7 C 80 16 97 03/12/23 06:45 36.7 C 80 16 99 03/12/23 06:40 36.7 C 80 16 100 03/12/23 06:35 36.7 C 80 16 99 03/12/23 06:30 110/60 03/12/23 06:30 36.8 C 89 16 98 03/12/23 06:25 36.8 C 80 15 97 03/12/23 06:20 36.8 C 80 16 98 FiO2 03/12/23 18:00 03/12/23 17:45 03/12/23 17:30 03/12/23 17:30 03/12/23 17:30 03/12/23 17:00 03/12/23 17:00 30 03/12/23 16:30 03/12/23 16:30 03/12/23 16:14 03/12/23 16:14 03/12/23 16:00 03/12/23 16:00 03/12/23 15:38 30 03/12/23 15:30 03/12/23 15:30 03/12/23 15:00 03/12/23 15:00 03/12/23 14:30 03/12/23 14:30 03/12/23 14:00 03/12/23 14:00 03/12/23 13:30 03/12/23 13:30 03/12/23 13:00 03/12/23 13:00 03/12/23 12:30 03/12/23 12:30 03/12/23 12:00 03/12/23 12:00 03/12/23 12:00 30 03/12/23 11:30 03/12/23 11:30 03/12/23 11:00 03/12/23 11:00 03/12/23 10:30 03/12/23 10:30 03/12/23 10:25 30 03/12/23 10:00 03/12/23 10:00 03/12/23 09:30 03/12/23 09:30 03/12/23 09:00 03/12/23 09:00 03/12/23 08:30 03/12/23 08:30 03/12/23 08:00 03/12/23 08:00 30 03/12/23 07:55 30 03/12/23 07:30 03/12/23 07:30 03/12/23 07:00 03/12/23 07:00 03/12/23 06:55 03/12/23 06:50 03/12/23 06:45 03/12/23 06:40 03/12/23 06:35 03/12/23 06:30 03/12/23 06:30 03/12/23 06:25 03/12/23 06:20 Laboratory Results CBC, CMP, SPutum and Blood cxs reviewed ABG reviewed Diagnostic Findings CXR reviewed PG Care Time/CCT Total # of Minutes Spent Total Time Spent with Patient: Total time spent is greater than 50% in coordination of care (as documented) at patient's floor/unit and/or counseling patient: Coding Level of Care Code 39498 SUB INP/OBS CARE 2/35MIN Diagnoses Septic shock A41.9; R65.21 Complication associated with dialysis catheter T82.9XXA Multifocal pneumonia J18.9 Hypercapnic respiratory failure J96.92 Macrocytic anemia D53.9 GERD (gastroesophageal reflux disease) K21.9 Hypothyroidism E03.9 Pacemaker Z95.0 ESRD (end stage renal disease) on dialysis N18.6; Z99.2 Stress-induced cardiomyopathy I51.81
[2023-03-12] MEDS ORDERED: ALBUMIN 25% 25 GM/100 ML VIAL IV ONE (20:02)
[2023-03-12 23:05] VITALS: TEMP 98.6
[2023-03-13 00:31] LABS: Basophils # (auto) 0.01 K/uL (0.00-0.20); Basophils % (auto) 0.1 %; Eosinophils # (auto) 0.06 K/uL (0.00-0.50); Eosinophils % (auto) 0.5 %; Hematocrit (blood only) 32.3 % (37.0-47.0); Hemoglobin 9.7 g/dl (12.0-16.0); Immature Granulocytes # (auto) 0.04 K/uL (0.01-0.20); Immature Granulocytes % (auto) 0.4 %; Lymphocytes # (auto) 1.46 K/uL (1.20-3.40); Lymphocytes % (auto) 13.3 %; Mean Corpuscular Hemoglobin 28.7 pg (25.0-34.0); Mean Corpuscular Volume 95.6 fL (80.0-100.0); Mean Platelet Volume 10.4 fL (9.4-12.4); Monocytes # (auto) 1.17 K/uL (0.11-0.59); Monocytes % (auto) 10.6 %; Neutrophils # (auto) 8.27 K/uL (1.40-6.50); Neutrophils % (auto) 75.1 %; Platelet Count 192 K/uL (130-400); RDW Coefficient of Variation 17.6 % (11.5-14.5); RDW Standard Deviation 62.3 fL (36.4-46.3); Red Blood Count 3.38 M/uL (4.20-5.40); White Blood Count 11.01 K/ul (4.8-10.8)
[2023-03-13] MEDS: INSULIN ASPART PER UNIT CHARGE SC SCH ×2 (00:33→06:24)
[2023-03-13 00:50] LABS: BUN Creatinine Ratio 7.7 (10-20); Calcium 7.4 mg/dl (8.6-10.3); Creatinine Clr Calc Pharmacy 21.7 ml/min; Est GFR (African American) 19.3 ml/min; Est GFR (Non-African American) 16.6 ml/min; Magnesium 2.1 mg/dl (1.7-2.4); Phosphorus 3.4 mg/dl (2.5-4.9); Potassium 3.5 mmol/L (3.5-5.1)
[2023-03-13 00:55] LABS: iSTAT Art Bld Gas pCO2 Correct 49 mmHg (35-46); iSTAT Arterial Blood Gas HCO3 23 meg/L (19-24); iSTAT Arterial Blood Gas pCO2 49 mmHg (35-46); iSTAT Arterial Blood Gas pH 7.27 (7.35-7.45); iSTAT Arterial Blood Gas pO2 69 mmHg (80-95); iSTAT Arterial Blood Gas pO2 C 67; iSTAT Carbon Dioxide 24 mmol/L (24-31); iSTAT Hematocrit 34 % (37-47); iSTAT Hemoglobin 11.6 g/dl (12.0-16.0); iSTAT Potassium 3.5 mmol/L (3.3-5.0); iSTAT Site Art Line; iSTAT Sodium 131 mmol/L (135-144)
[2023-03-13] MEDS: VASOPRESSIN 20 UNITS in 0.9 % SODIUM CHLORIDE 100 ML IV SCH (04:49)
[2023-03-13 05:55] VITALS: RESP 20
[2023-03-13 06:08] VITALS: O2SAT 99
[2023-03-13] MEDS: PANTOprazole 40 MG in SYRINGE 0 ML IV SCH (08:55)
[2023-03-13] MEDS: HEPARIN SOD 5,000 UNIT/0.5 ML VIAL SQ SCH (08:55)
[2023-03-13] MEDS ORDERED: OPTIRAY 320 125ml IV ONE (08:58)
[2023-03-13] MEDS ORDERED: HYDROCORTISONE SOD 50 MG in SYRINGE 0 ML IV SCH (09:00)
[2023-03-13] MEDS: SODIUM CHLORIDE 0.9% IV SCH (09:09)
[2023-03-13] MEDS: NOREPINEPHRINE BIT IV SCH (09:09)
--- NOTE | 2023-03-13 09:13 | Discharge Summary ---
Discharge Summary Date of Service March 13, 2023 Notes For Next Care Provider Transferred to [facility] Medication Changes From Visit On Vasopressin, Levophed, IV hydrocortisone for vasopressor support Admission HPI Per Admitting Provider Keira Allen is a 57 year old female with end stage renal disease on dialysis who presents to the ER due to an unresponsive episode at dialysis earlier today. Unable to get any history from the patient as current intubated and sedated on propofol. History obtained from ER physician and EMS notes. Reportedly she was at [facility] today and managed half way through dialysis she became hypotensive and unresponsive for about 30-45 minutes. She was intubated in the ER due to unresponsive state. She has a recent significant history of COVID-19 pneumonia causing septic/cardiogenic shock (suspected stress-induced cardiomyopathy with apical wall motion abnormality) requiring Levophed and vasopressin with possibility of myxedema coma. She was admitted at [facility] on January 05 and discharged later that night on January 06 to [facility] due to need for CRRT. Prolonged ICU stay due to persistent hypotension requiring addition of midodrine. She was transferred out of the CICU on January 22 but developed hypotension again requiring pressure support with suspected cellulitis surrounding left IJ requiring pressor support. Transferred back to medical floor on February 02 and discharge on March 01. Extubated January 28. At baseline she was on 3LPm O2. Pacemaker in place for prior heart block. 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 Principal Dx & Hospital Course #1 = Principal Diagnosis (1) Septic shock: Unclear source? Aspiration pneumonia versus line sepsis given exposed tunneled catheter ECHO with preserved LVEF, right sided HF now extubated, remains on 2 pressors which were escalated and remains on midodrine, and IV HC resumed Cultures of sputum and blood NGTD, is afebrile now but had low grade fevers on arrival On vancomycin and Zosyn follow blood cultures and sputum cultures Continue pressors [employer] recommends transfer for CRRT as she is unable to tolerate HD given hypotension and need for vasopressors (2) Complication associated with dialysis catheter: Exposed left tunneled dialysis catheter Consult vascular surgery appreciated-plan to remove TIJ and replace when HD stable Could be a likely source of infection Follow blood cultures-NGTD and cultures repeated on 03/13 (3) Multifocal pneumonia: possible aspiration? Zosyn+ vancomycin Monitor cultures (4) Hypercapnic respiratory failure: Now extubated , secondary to aspiration PNA? wean off O2 as able (5) Macrocytic anemia: Decreased Hgb 8.5-10 since December although she has had a prolonged hospitalization since then and has ESRD on dialysis therefore low suspicion of GI bleed however given high dose vasopressor support and history of GERD will continue pantoprazole 40mg IV daily Trend Hgb B12, folate and Fe studies all normal except Fe sat slightly low at 11% TSH now normal follow CBC (6) GERD (gastroesophageal reflux disease): Pantoprazole 40mg IV daily (7) Hypothyroidism: TSH normal Continue levothyroxine IV Recent history of myxedema coma which is now resolved (8) Pacemaker: Previously placed for heart block (9) ESRD (end stage renal disease) on dialysis: Nephrology on board received HD 03/12 but now needs CRRT Plan is to replace dialysis catheter (10) Stress-induced cardiomyopathy: Left ventricular systolic function is normal but with right sided HF Plan VTE Prophylaxis - heparin full code, transfer to [facility] Discharge Exam Constitutional WD/WN, vitals as above Respiratory normal respiratory effort Psychiatric Orientation: alert and cooperative Updated Medication List Medication Instructions Recorded Confirmed Type cholecalciferol (vitamin D3) 25 1,000 unit PO QAM 05/05/18 03/09/23 History mcg (1,000 unit) capsule albuterol sulfate 90 mcg/actuation 2 inh inhalation Q6H PRN Shortness 05/15/22 03/09/23 Rx aerosol inhaler Of Breath #18 grams levothyroxine 175 mcg tablet 175 mcg PO QAM #90 tabs 08/14/22 03/09/23 Rx pantoprazole 40 mg tablet,delayed 40 mg PO QAM 08/17/22 03/09/23 History release (Protonix) gabapentin 300 mg capsule 300 mg PO HS #90 caps 11/07/22 03/09/23 Rx sevelamer carbonate 800 mg tablet 1,600 mg PO .TIDAC 11/07/22 03/09/23 History lorazepam 1 mg tablet 1 mg PO Q12H PRN Anxiety #28 tabs 03/05/23 03/09/23 Rx oxycodone-acetaminophen 10 mg-325 1 tab PO Q8H PRN pain #42 tabs 03/05/23 03/09/23 Rx mg tablet (Percocet) midodrine 10 mg tablet 15 mg PO TID 03/06/23 03/09/23 History mirtazapine 15 mg tablet 15 mg PO HS 03/06/23 03/09/23 History patiromer calcium sorbitex 16.8 16.8 g PO DAILY PRN Based on 03/06/23 03/09/23 History gram oral powder packet (Veltassa) potassium levels @ dialysis sennosides 8.6 mg-docusate sodium 1 tab-cap PO DAILY PRN Constipation 03/06/23 03/09/23 History 50 mg tablet (Senokot-S) umeclidinium 62.5 mcg-vilanterol 1 inh inhalation DAILY 03/06/23 03/09/23 History 25 mcg/actuation powdr for inhalation (Anoro Ellipta) lidocaine-prilocaine 2.5 %-2.5 % 1 applic topical .MON/SUN/Sun03/09/23 03/09/23 History topical cream magnesium hydroxide 400 mg/5 mL 1,200 mg PO DAILY PRN Constipation 03/09/23 03/09/23 History oral suspension (Milk of Magnesia) melatonin 1 mg tablet 1 mg PO HS PRN Sleep 03/09/23 03/09/23 History Hospital Stay Data Consultations 03/09/23 11:25 ED Decision to Admit Stat 03/09/23 11:26 Consult [employer] Stat 03/09/23 11:43 Consult Nephrology Stat 03/09/23 11:59 Consult Vascular Surgery Routine 03/13/23 08:30 Burn CD for patient Stat Diagnostic Imagining Performed 03/09/23 09:25 CT abd pelvis wo con Stat CT head/brain wo con Stat 03/09/23 13:17 US point of care ultrasound Urgent 03/13/23 08:19 CT Abd and Pelvis [CT abd pelvis wo con] Stat CT angio chest PE protocol Stat ECHO Pending Results Patient Have Any Pending Studies at Discharge: Yes (Blood and urine cultures) Discharge Instructions Given to Patient (Per Discharging Provider) Transferred to [facility] Total Time Total Time Spent Total Time Spent (In Minutes): 35 min Coding Level of Care Code 78411 INP/OBS DISCH >30 MIN Diagnoses Septic shock A41.9; R65.21 Complication associated with dialysis catheter T82.9XXA Multifocal pneumonia J18.9 Hypercapnic respiratory failure J96.92 Macrocytic anemia D53.9 GERD (gastroesophageal reflux disease) K21.9 Hypothyroidism E03.9 Pacemaker Z95.0 ESRD (end stage renal disease) on dialysis N18.6; Z99.2 Stress-induced cardiomyopathy I51.81
--- NOTE | 2023-03-13 09:24 | CT Scan Report ---
ABDOMEN AND PELVIS CT WITHOUT CONTRAST CT DOSE: 2731.31 mGy.cm HISTORY: Generalized abdominal pain. TECHNIQUE: Multiaxial CT images of the abdomen and pelvis were performed without contrast. A dose lo wering technique was utilized adhering to the principles of ALARA. COMPARISON STUDY: Abdomen and pelvis CT 03/09/2023. FINDINGS: There is persistent elevation of the right hemidiaphragm. Bibasilar consolidation and trace bilateral pleural effusions are better appreciated on the same day chest CT. Pacemaker wires are not ed. No pneumoperitoneum. No pneumatosis. Mild anterior wedging at T7 and T12 is likely chronic. Chron ic fragmentation again noted within the symphysis pubis at the left medial pubic bone. Sclerotic band s noted at the endplates of the vertebral bodies suggesting a rugger [place] spine in the setting of h yperparathyroidism. Old, healed left-sided rib fractures. There are poststernotomy changes. Midline v entral hernia containing a short segment of the transverse colon. There is moderate body wall edema n oted. There are left femoral venous and arterial lines identified. The venous line terminates into a lumbar branch extending from the left common femoral vein. This should be retracted by approximately 5 cm. Innumerable peripherally calcified cysts are seen throughout the liver and kidneys, unchanged. Mild hepatic steatosis again noted. Cholecystectomy. No hydronephrosis. The pancreas, spleen, and adr enal glands are unremarkable. Normal caliber abdominal aorta. No retroperitoneal lymphadenopathy. Tra ce pelvic free fluid is noted. The bladder is decompressed and not well evaluated. The uterus and adn exa are unremarkable. Suboptimal evaluation for bowel pathology due to the lack of intravenous and or al contrast. However, there is no bowel wall thickening or obstruction. A few colonic diverticula. No evidence for acute diverticulitis. Small amount of fluid and fat stranding noted within the moderate size midline ventral hernia. Normal appendix. Fluid-filled nondilated loops of large or small bowel seen throughout the abdomen. This could represent a diarrheal illness/gastroenteritis. Prior mesh rep air of a lower midline ventral hernia. IMPRESSION: 1. The lung bases will be reported on the same day chest CT. 2. Fluid-filled nondilated loops of large and small bowel seen throughout the abdomen. This can be se en in the setting of a gastroenteritis/diarrheal illness. 3. Midline ventral hernia containing a short segment of the transverse colon, unchanged. No evidence for a bowel obstruction. 4. Moderate body wall edema and trace pelvic free fluid. 5. Innumerable partially calcified hepatic and renal cysts consistent with polycystic kidney disease. 6. Sclerotic bands noted at the endplates of the vertebral bodies suggesting a [place] spine in the setting of hyperparathyroidism. 7. There are left femoral venous and arterial lines identified. The venous line terminates into a lum bar branch extending from the left common femoral vein. This should be retracted by approximately 5 c m. ACT 112: Negative or not required by law. Electronically signed by: Edwin Hagan M.D. 03/13/2023 9:23 AM
--- NOTE | 2023-03-13 09:29 | Critical Care Progress Note ---
Date of Service March 13, 2023 Assessment & Plan (1) Shock circulatory: (2) Respiratory failure: (3) Sepsis: (4) Hypercapnic respiratory failure: (5) Hypoxemic respiratory failure, chronic: (6) Anxiety and depression: (7) Hypothyroidism: (8) GERD (gastroesophageal reflux disease): (9) Cigarette nicotine dependence: (10) Bipolar disorder: (11) Polycystic kidney disease, adult type: (12) COPD (chronic obstructive pulmonary disease): (13) ESRD (end stage renal disease) on dialysis: Plan Patient seen and examined in the ICU. Discussed on rounds with the nurse and respiratory therapist. Patient extubated 03/12/2023. Oxygen requirements initially were only 3 L on supplemental oxygen. Today she is requiring 5 L of oxygen likely due to volume overload and metabolic acidosis. She completed a brief period of hemodialysis yesterday. She had escalating pressor requirements and has had continued escalating requirements likely due to the hemodynamic shifts from hemodialysis. We spoke with the MICU team in [place] regarding transfer for CRRT and they were agreeable to accept the patient. She remains on broad-spectrum antibiotics. Repeat lactate today was low at 0.5. Blood cultures remain negative to date. No clear source of infection aside for the dehisced wound around the left tunneled dialysis catheter. This will likely need removed and replaced with a different dialysis catheter. CT abdomen and pelvis interpretation from radiology indicated body wall edema and trace pelvic fluid. Interval partial calcified hepatic and renal cyst consistent with her polycystic kidney disease. Fluid-filled nondilated loops of large and small bowel were seen concerning for possible gastroenteritis. Lung bases appear to have small pleural effusions with compressive atelectasis. Chest CTA interpretation is pending. Upon my review, no significant pulmonary embolism was seen. No significant infiltrates consistent with pneumonia were seen either. She does have a history of RV dysfunction based on prior echo. LV function stable. Hydrocortisone was added back to her regimen due to possibility of adrenal insufficiency and given the patient's history of hypothyroidism. Her overall prognosis is quite poor in the context of her chronic kidney disease and RV dysfunction. CRITICAL CARE TIME - I have personally spent 54 minutes of critical care time in the direct management of this patient. This is a life/limb threatening event. This includes time spent evaluating patient, direct bedside care, chart review, placing orders, interpretation of diagnostic studies, discussion with consultants, patient, and family members, as well as other required patient management activities. This time is exclusive of all separately billable procedures, and teaching time and separate from and in addition to any other critical care service time. Admission and Anticipated Discharge Date Admission Date: March 09, 2023 Subjective Patient seen and examined this morning. She has escalating pressor requirements and is now on high dose of Levophed and a fixed dose of vasopressin. She does endorse some mild abdominal pain. She has had ongoing hypoxia this morning and is now needing 5 L of supplemental oxygen. Stat CT chest and abdomen were ordered. We discussed with [place] MICU team for possible transfer for ongoing CRRT. [facility] accepted the patient for transfer and she is being life flighted out. Review of Systems Review of Systems: All systems reviewed & are unremarkable except as noted in HPI & below Physical Exam Physical Exam: Constitutional: Patient appears to be of their stated age. Patient is in mild distress. Eyes: Pupils are equal round and reactive to light. Conjunctivae are normal. Anicteric sclera. Ears nose, mouth and throat: Mallampati class 1. Normal posterior oropharynx. Uvula is midline. Neck: Trachea is midline. Visual inspection is normal. Respiratory: Crackles noted bilaterally with mildly increased work of breathing. Cardiovascular: Regular rate and rhythm. No murmurs. No edema. Gastrointestinal: Normal bowel sounds, soft, nontender and nondistended. Mild tenderness on palpation. Musculoskeletal: No cyanosis. Patient is able to move all extremities. Strength is 5 out of 5 in the upper and lower extremities. Skin: No rashes, warm dry and intact. Neurologic: No obvious focal neurological deficits seen. Psychiatric: Alert and oriented x3 with a euthymic affect. Results & Data Results & Data Vital Signs (Past 12 Hours) Vital Signs Temp Pulse Pulse Resp BP BP BP 03/13/23 09:12 37.0 C 88 20 90/55 L 124/66 03/13/23 05:50 80 20 03/13/23 05:45 69 21 03/13/23 05:40 81 20 03/13/23 05:35 81 21 03/13/23 05:30 80 23 03/13/23 05:30 112/65 03/13/23 05:25 81 19 03/13/23 05:20 81 16 03/13/23 05:15 80 19 03/13/23 05:10 80 20 03/13/23 05:05 80 22 03/13/23 05:00 83/58 L 03/13/23 05:00 80 19 03/13/23 04:55 80 18 03/13/23 04:50 0 L 27 H 03/13/23 04:45 81 24 03/13/23 04:40 81 21 03/13/23 04:35 81 18 03/13/23 04:30 90/57 L 03/13/23 04:30 81 19 03/13/23 04:25 80 21 03/13/23 04:20 82 17 03/13/23 04:15 81 18 03/13/23 04:10 81 20 03/13/23 04:05 81 17 03/13/23 04:00 84/54 L 03/13/23 04:00 82 17 03/13/23 03:55 81 21 03/13/23 03:50 81 15 03/13/23 03:45 82 25 H 03/13/23 03:40 82 31 H 03/13/23 03:35 82 18 03/13/23 03:30 93/64 L 03/13/23 03:30 83 21 03/13/23 03:25 83 18 03/13/23 03:20 83 19 03/13/23 03:15 83 20 03/13/23 03:10 84 20 03/13/23 03:05 83 20 03/13/23 03:00 84 19 03/13/23 03:00 98/63 L 03/13/23 02:55 84 20 03/13/23 02:50 86 22 03/13/23 02:45 85 21 03/13/23 02:40 80 24 03/13/23 02:35 85 21 03/13/23 02:30 100/70 03/13/23 02:30 87 13 03/13/23 02:25 88 22 03/13/23 02:20 87 22 03/13/23 02:15 87 19 03/13/23 02:10 87 20 03/13/23 02:05 87 19 03/13/23 02:00 116/68 03/13/23 02:00 87 20 03/13/23 01:55 79 24 03/13/23 01:50 87 24 03/13/23 01:45 86 20 03/13/23 01:40 87 19 03/13/23 01:35 87 18 03/13/23 01:32 88 14 03/13/23 01:32 94/54 L 03/13/23 01:30 88 29 H 03/13/23 01:25 87 20 03/13/23 01:20 87 23 03/13/23 01:15 87 18 03/13/23 01:10 87 22 03/13/23 01:05 88 21 03/13/23 01:00 92/54 L 03/13/23 01:00 87 29 H 03/13/23 00:55 50 L 18 03/13/23 00:50 87 21 03/13/23 00:45 88 26 H 03/13/23 00:40 87 15 03/13/23 00:30 79 22 03/13/23 00:25 83 15 03/13/23 00:20 88 19 03/13/23 00:15 87 18 03/13/23 00:10 88 21 03/13/23 00:05 88 19 03/13/23 00:00 83/60 L 03/13/23 00:00 87 26 H 03/13/23 00:00 74 03/12/23 23:55 87 21 03/12/23 23:50 81 17 03/12/23 23:45 85 20 03/12/23 23:40 88 23 03/12/23 23:35 82 19 03/12/23 23:30 83/53 L 03/12/23 23:30 83 19 03/12/23 23:25 88 22 03/12/23 23:20 88 21 03/12/23 23:15 77 40 H 03/12/23 23:10 76 22 03/12/23 23:05 90 25 H 03/12/23 23:00 86/64 L 03/12/23 23:00 67 23 03/12/23 22:55 95 H 24 03/12/23 22:50 102 H 26 H 03/12/23 22:45 37.0 C 125 H 25 H 03/12/23 22:40 37.0 C 119 H 17 03/12/23 22:35 37.0 C 92 H 26 H 03/12/23 22:34 37.0 C 18 03/12/23 22:34 102/73 03/12/23 22:30 37.0 C 89 19 03/12/23 22:30 73/61 L 03/12/23 22:25 37.0 C 88 15 03/12/23 22:20 37.0 C 87 30 H 03/12/23 22:15 36.9 C 86 26 H 03/12/23 22:10 36.9 C 88 19 03/12/23 22:05 36.9 C 86 20 03/12/23 22:00 36.9 C 86 18 03/12/23 22:00 92/61 L 03/12/23 21:55 36.9 C 86 20 03/12/23 21:50 36.8 C 86 18 03/12/23 21:45 36.8 C 86 27 H 03/12/23 21:40 36.8 C 86 21 03/12/23 21:35 36.8 C 86 23 03/12/23 21:31 36.7 C 86 23 03/12/23 21:31 98/62 L 03/12/23 21:31 98/62 L 03/12/23 21:30 36.7 C 86 32 H 03/12/23 21:25 36.7 C 86 16 Pulse Ox 03/13/23 09:12 99 03/13/23 05:50 99 03/13/23 05:45 96 03/13/23 05:40 97 03/13/23 05:35 97 03/13/23 05:30 97 03/13/23 05:30 03/13/23 05:25 95 03/13/23 05:20 94 03/13/23 05:15 95 03/13/23 05:10 93 03/13/23 05:05 85 L 03/13/23 05:00 03/13/23 05:00 87 L 03/13/23 04:55 92 03/13/23 04:50 92 03/13/23 04:45 93 03/13/23 04:40 90 03/13/23 04:35 92 03/13/23 04:30 03/13/23 04:30 95 03/13/23 04:25 95 03/13/23 04:20 94 03/13/23 04:15 95 03/13/23 04:10 95 03/13/23 04:05 94 03/13/23 04:00 03/13/23 04:00 93 03/13/23 03:55 94 03/13/23 03:50 95 03/13/23 03:45 95 03/13/23 03:40 96 03/13/23 03:35 94 03/13/23 03:30 03/13/23 03:30 94 03/13/23 03:25 97 03/13/23 03:20 94 03/13/23 03:15 94 03/13/23 03:10 94 03/13/23 03:05 95 03/13/23 03:00 95 03/13/23 03:00 03/13/23 02:55 91 03/13/23 02:50 94 03/13/23 02:45 94 03/13/23 02:40 90 03/13/23 02:35 94 03/13/23 02:30 03/13/23 02:30 94 03/13/23 02:25 91 03/13/23 02:20 94 03/13/23 02:15 91 03/13/23 02:10 91 03/13/23 02:05 91 03/13/23 02:00 03/13/23 02:00 95 03/13/23 01:55 93 03/13/23 01:50 93 03/13/23 01:45 95 03/13/23 01:40 92 03/13/23 01:35 95 03/13/23 01:32 94 03/13/23 01:32 03/13/23 01:30 95 03/13/23 01:25 93 03/13/23 01:20 93 03/13/23 01:15 95 03/13/23 01:10 93 03/13/23 01:05 93 03/13/23 01:00 03/13/23 01:00 92 03/13/23 00:55 91 03/13/23 00:50 93 03/13/23 00:45 93 03/13/23 00:40 03/13/23 00:30 92 03/13/23 00:25 88 L 03/13/23 00:20 81 L 03/13/23 00:15 84 L 03/13/23 00:10 93 03/13/23 00:05 100 03/13/23 00:00 03/13/23 00:00 95 03/13/23 00:00 03/12/23 23:55 97 03/12/23 23:50 96 03/12/23 23:45 96 03/12/23 23:40 97 03/12/23 23:35 91 03/12/23 23:30 03/12/23 23:30 88 L 03/12/23 23:25 98 03/12/23 23:20 90 03/12/23 23:15 96 03/12/23 23:10 92 03/12/23 23:05 96 03/12/23 23:00 03/12/23 23:00 93 03/12/23 22:55 90 03/12/23 22:50 92 03/12/23 22:45 90 03/12/23 22:40 98 03/12/23 22:35 100 03/12/23 22:34 97 03/12/23 22:34 03/12/23 22:30 96 03/12/23 22:30 03/12/23 22:25 99 03/12/23 22:20 100 03/12/23 22:15 100 03/12/23 22:10 100 03/12/23 22:05 100 03/12/23 22:00 100 03/12/23 22:00 03/12/23 21:55 100 03/12/23 21:50 100 03/12/23 21:45 100 03/12/23 21:40 100 03/12/23 21:35 100 03/12/23 21:31 100 03/12/23 21:31 03/12/23 21:31 03/12/23 21:30 100 03/12/23 21:25 100 Coding Level of Care Code 06986 CRITICAL CARE 1ST 30-74M Diagnoses Shock circulatory R57.9 Respiratory failure J96.01; J96.02 Chronicity: acute Respiratory failure complication: hypoxia and hypercapnia Sepsis A41.9; R65.20; J96.02 Acute respiratory failure type: with hypercapnia Sepsis acute organ dysfunction status: with acute organ dysfunction Sepsis type: sepsis due to unspecified organism Severe sepsis acute organ dysfunction type: acute respiratory failure Severe sepsis shock status: unspecified Hypercapnic respiratory failure J96.92 Hypoxemic respiratory failure, chronic J96.11 Anxiety and depression F41.9; F32.9 Hypothyroidism E03.9 GERD (gastroesophageal reflux disease) K21.9 Cigarette nicotine dependence F17.210 Bipolar disorder F31.9 Polycystic kidney disease, adult type Q61.2 COPD (chronic obstructive pulmonary disease) J44.9 ESRD (end stage renal disease) on dialysis N18.6; Z99.2 Time Spent (min) 54 (2) Respiratory failure Chronicity: acute Respiratory failure complication: hypoxia and hypercapnia Qualified Code(s): J96.01 - Acute respiratory failure with hypoxia; J96.02 - Acute respiratory failure with hypercapnia (3) Sepsis Acute respiratory failure type: with hypercapnia Sepsis acute organ dysfunction status: with acute organ dysfunction Sepsis type: sepsis due to unspecified organism Severe sepsis acute organ dysfunction type: acute respiratory failure Severe sepsis shock status: unspecified Qualified Code(s): A41.9 - Sepsis, unspecified organism; R65.20 - Severe sepsis without septic shock; J96.02 - Acute respiratory failure with hypercapnia
--- NOTE | 2023-03-13 09:37 | CT Scan Report ---
CT ANGIOGRAM OF THE CHEST CLINICAL HISTORY: Hypoxia. COMPARISON STUDY: Chest x-ray dated 03/12/2023. Chest CT dated 09/13/2020. TECHNIQUE: Following the IV administration of 91 cc of Optiray 320, CT angiogram of the chest was per formed from the upper abdomen to the thoracic inlet utilizing the pulmonary embolus protocol. Images are reviewed in the axial, sagittal, and coronal planes. 3-D MIPS images are created and assessed. IV contrast was administered without complication. A dose lowering technique was utilized adhering to the principles of ALARA. The examination is compromised by motion artifact, as well as by streak delia fact from the arms which could not be elevated above the chest. FINDINGS: Thyroid: Normal in size and heterogeneous in attenuation. There are scattered thyroid calcifications. Thoracic aorta: There is atherosclerotic calcification of the thoracic aorta, which is normal in elian pérez and demonstrates 4-vessel variant arch anatomy. No dissection is seen. Pulmonary vasculature: The pulmonary trunk is dilated, measuring 3.8 cm in diameter. This suggests pu lmonary artery hypertension. There are no filling defects identified in main, lobar, or segmental pul monary branches to suggest pulmonary embolus. Heart: A left internal jugular central venous catheter is in place. A cardiac pacemaker is present in the right chest wall. The patient is status post midline sternotomy and mitral valve surgery. The he art is enlarged and without pericardial effusion. The coronary arteries are densely calcified. Lungs and pleural spaces: Evaluation of the lung parenchyma is compromised by motion artifact. Emphys ematous changes noted. There are small right and trace left pleural effusions with dependent consolid ation. Secretions are suggested in the trachea. Mediastinum: There is no mediastinal lymphadenopathy. Samira: Clear. Axillae: There is no axillary lymphadenopathy. Upper abdomen: The liver there is steatotic and contains numerous calcifications. The partially image d left kidney is of Numerous cysts and calcifications. Cholecystectomy clips are noted. 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 Skeletal structures: The skeletal structures are heterogeneously osteopenic. There are numerous thora cic compression deformities. Degenerative changes and kyphoscoliosis is seen in the spine. There is c hronic deformity of the bilateral ribs. No lytic or blastic bony lesions are seen. Soft tissues: There is anasarca of the body wall. Soft tissues: Large calcified soft tissue structures are present in the left arm, there is likely lef t upper extremity fistula or bypass. IMPRESSION: 1. Significantly streak and motion degraded examination. 2. There is no evidence of pulmonary embolus in the main, lobar, or segmental pulmonary arteries. 3. Cardiomegaly and cardiac pacemaker. 4. Emphysema. 5. Right larger than left pleural effusions with dependent consolidation. 6. Additional findings as above. ACT 112: Negative or not required by law. Electronically signed by: Natalio Marquez M.D. 03/13/2023 9:35 AM
[2023-03-13 10:09] VITALS: BP 101/74; PULSE 80
[2023-03-13] MEDS: MIDODRINE HCL 2.5 MG TAB PO SCH (10:38)
== END 2023-03-13 10:23 | disposition short-term general hospital (02) | DRG 314 ==
LOC: ED 09:09 → SUATTDRO 12:05 → 1E 12:05